=== PATIENT | female | born 1965 | race Two or more races ===

== ENCOUNTER → 2020-07-31 13:46 | Outpatient (BNVA) | payer OTHER, SELFPAY | PROVIDERS: PCP Internal Medicine Geriatric Medicine; Referring Provider Internal Medicine Geriatric Medicine; Visit Provider Surgery | DX: D05.11 Intraductal carcinoma in situ of right breast (principal); D05.12 Intraductal carcinoma in situ of left breast; Z79.810 Long term (current) use of selective estrogen receptor modulators (SERMs); Z92.3 Personal history of irradiation | CPT/HCPCS: 99212 ==

== ENCOUNTER 2020-10-24 13:09 | Outpatient (REF) | payer OTHER, SELFPAY ==
--- NOTE | 2020-10-24 13:17 | MM_ITS ---
EXAMINATION: MM DIAGNOSTIC DIGITAL MAMMOGRAPHY, BILATERAL CLINICAL INFORMATION: Bilateral breast DCIS with radiation therapy COMPARISON: Mammography: October 03, 2019 and studies dating back to May 01, 2014 TECHNIQUE: Digital mammography is performed in craniocaudal and mediolateral oblique views along with computer-aided detection (CAD). Spot magnification views with scar markers performed in craniocaudal and 90 degree mediolateral views bilaterally. FINDINGS: The breasts are heterogeneously dense, which may obscure small masses (ACR BI-RADS breast composition Category c). Bilateral regions of architectural distortion are present related to previous surgery with skin thickening from radiation therapy. Bilateral axillary lymph nodes seen containing fat without evidence of infiltration. Results are provided to the patient at time of visit by the technologist. MM/MM diagnostic mammo BI IMPRESSION: Status post bilateral lumpectomies with radiation therapy with associated change. ASSESSMENT: BI-RADS 2: Benign RECOMMENDATION: Diagnostic mammography at time of next annual exam, due in 12 months. This patient's information was entered into a reminder system with a target due date for their next mammogram.
== END 2020-10-24 13:10 | disposition home or self-care (01) ==
LOC: HO.MAMMO 13:09
PROVIDERS: PCP Internal Medicine Geriatric Medicine; Visit Provider Surgery
DX: D05.11 Intraductal carcinoma in situ of right breast (principal); D05.12 Intraductal carcinoma in situ of left breast; Z90.13 Acquired absence of bilateral breasts and nipples; Z92.3 Personal history of irradiation
CPT/HCPCS: 77066

== ENCOUNTER 2020-10-30 08:53 | Outpatient (REF) | payer OTHER, SELFPAY ==
--- NOTE | ~2020-10-30 | XR_ITS ---
EXAMINATION: BILATERAL HAND AND WRIST X-RAY CLINICAL INFORMATION: Pain COMPARISON: Previous right hand and wrist x-ray August 2017 TECHNIQUE: 4 views of each hand and wrist FINDINGS: Left: The bones are osteopenic. Bone alignment is normal. No fracture or dislocation is seen. There is mild proliferative arthritis with small osteophytes at the DIP joint of the second finger in the IP joint of the thumb. Carpal bones are unremarkable. Soft tissues are unremarkable. Right: The bones are osteopenic. No fracture or dislocation is seen. There is mild arthritis with small osteophytes at the IP joint of the thumb. Joint spaces are otherwise normal. Soft tissues are normal. XR/XR hand wrist RT IMPRESSION: Left: Osteopenia. Small osteophytes at the DIP joint of the second finger and IP joint of the thumb. Right: Osteopenia. Small osteophyte at the IP joint of the thumb.
--- NOTE | ~2020-10-30 | XR_ITS ---
EXAMINATION: BILATERAL HAND AND WRIST X-RAY CLINICAL INFORMATION: Pain COMPARISON: Previous right hand and wrist x-ray August 2017 TECHNIQUE: 4 views of each hand and wrist FINDINGS: Left: The bones are osteopenic. Bone alignment is normal. No fracture or dislocation is seen. There is mild proliferative arthritis with small osteophytes at the DIP joint of the second finger in the IP joint of the thumb. Carpal bones are unremarkable. Soft tissues are unremarkable. Right: The bones are osteopenic. No fracture or dislocation is seen. There is mild arthritis with small osteophytes at the IP joint of the thumb. Joint spaces are otherwise normal. Soft tissues are normal. XR/XR hand wrist LT IMPRESSION: Left: Osteopenia. Small osteophytes at the DIP joint of the second finger and IP joint of the thumb. Right: Osteopenia. Small osteophyte at the IP joint of the thumb.
[2020-10-30 11:07] LABS: Glucose Urine UA NEG (NEG); Leukocyte Esterase Urine NEG (NEG); Nitrite Urine NEG (NEG); PH 5.5 (5.0-8.0); Specific Gravity - Urine >= 1.030 (1.005-1.025); Urine Blood 1+ (NEG); Urine Ketones NEG (NEG); Urine Protein NEG (NEG-TRACE)
[2020-10-30 11:09] LABS: Appearance Urine HAZY; Color Urine YELLOW
[2020-10-30 11:21] LABS: Bacteria Urine 1+ /LPF; Mucus Urine 1+ /LPF; Squamous Epithelial Cell Urine 1+ /LPF; WBC Urine 0 /HPF (0-4)
[2020-10-30 11:29] LABS: C Reactive Protein 0.76 mg/dL (< or = 0.50)
[2020-10-30 11:44] LABS: Thyroid Stimulating Hormone 0.89 uIU/mL (0.32-4.0)
[2020-10-30 12:10] LABS: Erythrocyte Sedimentation Rate 65 MM/HR (0-20)
[2020-10-31 06:47] LABS: Thyroglobulin Antibodies <1 IU/mL (< or = 1); Thyroid Peroxidase Antibodies <1 IU/mL (<9)
[2020-10-31 11:57] LABS: Cyclic Citrullinated Peptide >250 UNITS
[2020-10-31 12:42] LABS: Anti DNA DS Antibody 1 IU/mL; Antibody to SS-A Antigen <1.0 NEG AI (<1.0 NEG); Antibody to SS-B Antigen <1.0 NEG AI (<1.0 NEG); SM/Ribonucleoprotein Ab <1.0 NEG AI (<1.0 NEG); Smith Protein <1.0 NEG AI (<1.0 NEG)
[2020-10-31 13:58] LABS: Complement C3 123 mg/dL (83-193)
== END 2020-10-30 08:54 | disposition home or self-care (01) ==
LOC: HO.LAB 08:53
PROVIDERS: PCP Internal Medicine Geriatric Medicine; Visit Provider Student in an Organized Health Care Education/Training Program
DX: R76.8 Other specified abnormal immunological findings in serum (principal); M25.50 Pain in unspecified joint
CPT/HCPCS: 36415; 73110; 73130; 81001; 84443; 85652; 86140; 86160; 86200; 86225; 86235; 86376; 86800; 99212

== ENCOUNTER 2020-11-08 13:33 | Outpatient (REF) | payer OTHER, SELFPAY ==
--- NOTE | ~2020-11-08 | MR_ITS ---
EXAMINATION: MR HAND WITHOUT AND WITH CONTRAST, RIGHT CLINICAL INFORMATION: Right hand pain COMPARISON: Right hand and wrist radiographs dated 10/30/2020 TECHNIQUE: Multisequence MR images of the right hand were obtained before and after the administration of 7.5 mL Gadavist IV contrast on a high-field strength scanner. FINDINGS: BONE: No acute fracture or dislocation. Minimal subchondral cystic change within the distal pole of the scaphoid adjacent to the triscaphe joint. Mild articular cartilage signal heterogeneity with subchondral cystic change at the 1st carpometacarpal joint. Mild articular cartilage thinning with tiny marginal osteophytes at the 1st interphalangeal joint. No additional abnormal marrow signal. No abnormal postcontrast enhancement. MUSCLES/TENDONS: The visualized flexor and extensor tendons are intact. LIGAMENTS: The collateral ligaments are intact. SOFT TISSUES: No abnormal soft tissue mass, fluid collection, or enhancement. MR/MR hand RT wo/w con IMPRESSION: 1. Minimal degenerative arthritis at the triscaphe, 1st carpometacarpal, and 1st interphalangeal joints. 2. No additional osseous abnormality. No abnormal postcontrast enhancement.
[2020-11-08 14:15] LABS: Blood Urea Nitrogen 20 mg/dL (9-16); Estimated Glomerular Filt Rate > 60
== END 2020-11-08 13:34 | disposition home or self-care (01) ==
LOC: HO.MRI 13:33
PROVIDERS: Visit Provider Student in an Organized Health Care Education/Training Program
DX: M79.89 Other specified soft tissue disorders (principal)
CPT/HCPCS: 36415; 73220; 82565; 84520; A9585

== ENCOUNTER → 2020-11-26 09:06 | Outpatient (BNVA) | payer OTHER, SELFPAY | PROVIDERS: PCP Internal Medicine Geriatric Medicine; Visit Provider Nurse Practitioner | DX: Z13.89 Encounter for screening for other disorder (principal) | CPT/HCPCS: Q3014 ==

== ENCOUNTER → 2020-12-04 10:30 | Outpatient (BNV) | payer OTHER, SELFPAY | PROVIDERS: PCP Internal Medicine Geriatric Medicine; Visit Provider Internal Medicine Medical Oncology | DX: D05.11 Intraductal carcinoma in situ of right breast (principal); D05.12 Intraductal carcinoma in situ of left breast; M81.0 Age-related osteoporosis without current pathological fracture; D61.818 Other pancytopenia | CPT/HCPCS: 99213; 99214 ==

== ENCOUNTER → 2020-12-05 10:37 | Outpatient (BNVA) | payer OTHER, SELFPAY | PROVIDERS: PCP Internal Medicine Geriatric Medicine; Visit Provider Student in an Organized Health Care Education/Training Program | DX: M06.9 Rheumatoid arthritis, unspecified (principal); R76.8 Other specified abnormal immunological findings in serum; M25.50 Pain in unspecified joint | CPT/HCPCS: 99212 ==

== ENCOUNTER → 2020-12-07 09:47 | Outpatient (BNVA) | payer OTHER, SELFPAY | PROVIDERS: PCP Internal Medicine Geriatric Medicine; Visit Provider Surgery | DX: D05.11 Intraductal carcinoma in situ of right breast (principal); D05.12 Intraductal carcinoma in situ of left breast; N63.20 Unspecified lump in the left breast, unspecified quadrant | CPT/HCPCS: 99212 ==

== ENCOUNTER 2020-12-13 12:55 | Outpatient (REF) | payer OTHER, SELFPAY ==
--- NOTE | ~2020-12-13 | US_ITS ---
EXAMINATION: US DIAGNOSTIC ULTRASOUND BREAST, LEFT CLINICAL INFORMATION: Status post bilateral DCIS, MR biopsy 08/29/2019, status post lumpectomy 10/03/2019. Patient notes fullness and tenderness/pain lateral inframammary fold. COMPARISON: Post lumpectomy mammography 10/24/2020. TECHNIQUE: Ultrasound of the left breast is targeted to the area of clinical concern. Grayscale imaging and color Doppler are performed without and with harmonics. Patient is able to point to the area of concern at time of imaging. FINDINGS: There is no focal suspicious finding. There is no cystic or solid mass, architectural abnormality, duct ectasia. There is no skin thickening or edema tracking in the soft tissue planes. The patient's symptoms overlie the anterior lateral thoracic cage level of inframammary fold and extending laterally beyond the breast. Results are discussed with the patient at time of visit. US/US breast LT limited IMPRESSION: Unremarkable targeted left breast/chest wall ultrasound. ASSESSMENT: BI-RADS 1: Negative RECOMMENDATION: 1. Patient should be managed based on the clinical impression. 2. Otherwise, routine annual screening mammography. This patient's information was entered into a reminder system with a target due date for their next mammogram.
== END 2020-12-13 12:56 | disposition home or self-care (01) ==
LOC: HO.MAMMO 12:55
PROVIDERS: Visit Provider Surgery
DX: N63.23 Unspecified lump in the left breast, lower outer quadrant (principal); Z86.000 Personal history of in-situ neoplasm of breast
CPT/HCPCS: 76642; Q3014

== ENCOUNTER → 2021-01-17 13:28 | Outpatient (BNVA) | payer OTHER, SELFPAY | PROVIDERS: Visit Provider Nurse Practitioner | DX: Z13.89 Encounter for screening for other disorder (principal) | CPT/HCPCS: Q3014 ==

== ENCOUNTER 2021-01-31 16:19 | Outpatient (REF) | payer OTHER, SELFPAY ==
[2021-01-31 16:46] LABS: MANUAL DIFF FLAG NO
[2021-01-31 16:52] LABS: Basophils Percent Auto 0.5 % (0-2); Eosinophils Absolute Auto 0.1 X10*3/uL (0.0-0.4); Eosinophils Percent Auto 2.7 % (0-4); Hematocrit 36.1 % (37-47); Hemoglobin 11.6 g/dl (12.0-16.0); Imm Gran Abs Auto 0.01 X10*3/uL (0.00-0.03); Imm Gran Pct Auto 0.2 % (0.0-0.4); Lymphocytes Absolute Auto 0.9 X10*3/uL (1.2-4.9); Lymphocytes Percent Auto 20.9 % (20-40); Mean Corpuscular HGB Conc 32.1 g/dl (31.0-35.0); Mean Corpuscular Hemoglobin 27.4 pg (27.0-33.0); Mean Corpuscular Volume 85.3 fL (80-98); Mean Platelet Volume 9.8 fL (9.4-12.3); Monocytes Absolute Auto 0.4 X10*3/uL (0.1-1.2); Monocytes Percent Auto 8.6 % (2-11); Neutrophils Absolute Auto 2.7 X10*3/uL (2.0-8.3); Neutrophils Percent Auto 67.1 % (45-73); Platelet Count 148 X10*3/uL (160-400); Red Blood Count 4.23 X10*6/uL (4.20-5.50); Red Cell Distribution Width 14.2 % (11.0-16.0); White Blood Count 4.1 X10*3/uL (4.8-10.8)
[2021-01-31 17:11] LABS: Alanine Aminotransferase 20 U/L (0-31); Albumin Level 4.3 g/dL (3.5-5.0); Alkaline Phosphatase 76 U/L (39-117); Anion Gap 13 (12-20); Aspartate Amino Transferase 19 U/L (5-31); Bilirubin Total 0.3 mg/dL (0.0-1.0); Blood Urea Nitrogen 21 mg/dL (9-16); C Reactive Protein 0.38 mg/dL (< or = 0.50); Calcium 9.7 mg/dL (8.4-10.2); Carbon Dioxide 29 mmol/L (22-29); Chloride 102 mmol/L (96-108); Estimated Glomerular Filt Rate 54; Glucose Random 103 mg/dL (60-115); Potassium 4.1 mmol/L (3.3-5.1); Sodium 140 mmol/L (135-145); Total Protein 7.6 g/dL (6.5-8.0)
[2021-01-31 17:48] LABS: Erythrocyte Sedimentation Rate 55 MM/HR (0-20)
[2021-01-31 18:04] LABS: Glucose Urine UA NEG (NEG); Leukocyte Esterase Urine NEG (NEG); Nitrite Urine NEG (NEG); PH 5.5 (5.0-8.0); Specific Gravity - Urine >= 1.030 (1.005-1.025); Urine Blood 1+ (NEG); Urine Ketones NEG (NEG); Urine Protein NEG (NEG-TRACE)
[2021-01-31 18:07] LABS: Appearance Urine CLEAR; Color Urine YELLOW
[2021-01-31 18:21] LABS: Bacteria Urine 1+ /LPF; Mucus Urine 2+ /LPF; RBC Urine 0-2 /HPF (0); Squamous Epithelial Cell Urine 2+ /LPF; WBC Urine 0-2 /HPF (0-4)
[2021-02-01 08:13] LABS: HBS Num1 30.39 mIU/mL (0-7.99); HBsAGNum1 0.21 S/CO (0.00-0.99); Hepatitis A Antibody IgM 0.35 Index (0-0.79); Hepatitis B Core Antibody Nonreactive (Nonreactive); Hepatitis B Surface Antigen Negative (Negative); ~HepC Num1 0.11 S/CO (0.00-0.79); ~Hepatitis A Antibody IgM Nonreactive (Nonreactive); ~Hepatitis B Surface Antibody REACTIVE (Nonreactive); ~Hepatitis C Antibody Nonreactive (Nonreactive)
[2021-02-03 23:06] LABS: TS Negative Control Passed; TS Panel A 1; TS Panel B 1; TS Positive Control Passed; TSpotTB Negative (SeeBelow)
== END 2021-01-31 16:20 | disposition home or self-care (01) ==
LOC: HO.LAB 16:19
PROVIDERS: PCP Internal Medicine Geriatric Medicine; Visit Provider Student in an Organized Health Care Education/Training Program
DX: M06.9 Rheumatoid arthritis, unspecified (principal)
CPT/HCPCS: 36415; 80053; 81001; 85025; 85652; 86140; 86481; 86704; 86706; 86709; 86803; 87340

== ENCOUNTER → 2021-03-28 15:42 | Outpatient (BNVA) | payer OTHER, SELFPAY | PROVIDERS: PCP Internal Medicine Geriatric Medicine; Visit Provider Surgery | DX: D05.12 Intraductal carcinoma in situ of left breast (principal); D05.11 Intraductal carcinoma in situ of right breast; R73.03 Prediabetes; M81.0 Age-related osteoporosis without current pathological fracture; N63.20 Unspecified lump in the left breast, unspecified quadrant; Z79.810 Long term (current) use of selective estrogen receptor modulators (SERMs); Z92.3 Personal history of irradiation | CPT/HCPCS: 99212 ==

== ENCOUNTER → 2021-04-19 13:02 | Outpatient (BNVA) | payer OTHER, SELFPAY | PROVIDERS: PCP Internal Medicine Geriatric Medicine; Visit Provider Nurse Practitioner | DX: Z13.89 Encounter for screening for other disorder (principal) | CPT/HCPCS: Q3014 ==

== ENCOUNTER 2021-04-25 11:21 | Outpatient (REF) | payer OTHER, SELFPAY ==
--- NOTE | ~2021-04-25 | XR_ITS ---
EXAMINATION: XR RIBS, LEFT CLINICAL INFORMATION: Pleurodynia. COMPARISON: Chest radiographs 07/12/2016, 04/26/2014 TECHNIQUE: Frontal view chest and 3 views left ribs are obtained for a total of 4 views. FINDINGS: There is no visible rib fracture or rib destructive process. There is no pneumothorax or pleural reaction or effusion. The lungs show no airspace consolidation or focal groundglass opacity. The costophrenic sulci are clear. The heart is within normal size. The vascularity is within normal. The hilar and mediastinal contours are unremarkable. XR/XR ribs LT min 3V w CXR1V IMPRESSION: 1. No visible left rib fracture or rib destructive process. 2. No pneumothorax, pleural reaction, or effusion.
[2021-04-25 13:29] LABS: Alanine Aminotransferase 19 U/L (0-31); Albumin Level 4.3 g/dL (3.5-5.0); Alkaline Phosphatase 70 U/L (39-117); Aspartate Amino Transferase 18 U/L (5-31); Bilirubin Direct 0.2 mg/dL (0.0-0.5); Bilirubin Total 0.4 mg/dL (0.0-1.0); Total Protein 7.5 g/dL (6.5-8.0)
[2021-04-26 13:20] LABS: Alpha Fetoprotein 2.8 ng/mL
== END 2021-04-25 11:22 | disposition home or self-care (01) ==
LOC: HO.XRAY 11:21
PROVIDERS: Absent Provider Internal Medicine Geriatric Medicine; PCP Internal Medicine Geriatric Medicine; Visit Provider Nurse Practitioner
DX: K76.0 Fatty (change of) liver, not elsewhere classified (principal); R07.81 Pleurodynia
CPT/HCPCS: 36415; 71101; 80076; 82105

== ENCOUNTER 2021-05-31 08:00 | Outpatient (REF) | payer OTHER, SELFPAY ==
--- NOTE | ~2021-05-31 | US_ITS ---
EXAMINATION: US ABDOMEN LIMITED CLINICAL INFORMATION: Fatty change of liver, not elsewhere classified. COMPARISON: Ultrasound abdomen 06/07/2020 and 06/16/2019. CT abdomen and pelvis 01/25/2020. TECHNIQUE: Real-time imaging of the right upper quadrant abdominal viscera. FINDINGS: PANCREAS: Normal. LIVER: The liver is normal in size. The liver contour is normal. There is diffuse increased liver parenchymal echogenicity and sound attenuation, consistent with hepatic steatosis. No focal hepatic lesion. There is no intrahepatic biliary duct dilatation seen. GALLBLADDER: Normal. The gallbladder is physiologically distended without evidence of stones, sludge, polyps, wall thickening or pericholecystic fluid. COMMON BILE DUCT: Normal in caliber measuring 0.6 cm in diameter. RIGHT KIDNEY: Normal. No hydronephrosis. No renal calculi or focal parenchymal lesions. The kidney measures 11.6 cm in maximum dimension. FREE FLUID: None. US/US abdomen limited IMPRESSION: Mildly increased hepatic echogenicity and sound attenuation suggesting hepatic steatosis.
== END 2021-05-31 08:01 | disposition home or self-care (01) ==
LOC: HO.US 08:00
PROVIDERS: Visit Provider Nurse Practitioner
DX: K76.0 Fatty (change of) liver, not elsewhere classified (principal)
CPT/HCPCS: 76705

== ENCOUNTER → 2021-06-14 07:52 | Outpatient (BNVA) | payer OTHER, SELFPAY | PROVIDERS: PCP Internal Medicine Geriatric Medicine; Visit Provider Nurse Practitioner Family | DX: M06.9 Rheumatoid arthritis, unspecified (principal); M25.50 Pain in unspecified joint; M25.561 Pain in right knee | CPT/HCPCS: 99212 ==

== ENCOUNTER 2021-06-15 10:34 | Outpatient (REF) | payer OTHER, SELFPAY ==
--- NOTE | ~2021-06-15 | XR_ITS ---
EXAMINATION: X-RAY RIGHT WRIST X-RAY LEFT WRIST CLINICAL INFORMATION: Pain. COMPARISON: MR of the right hand dated from 11/08/2020. Radiographs of the right and left wrist dated from 10/30/2020. TECHNIQUE: 4 views of each wrist were obtained. FINDINGS: Right wrist: No evidence of acute fractures or malalignment. The scapholunate interval and carpal rows are maintained. There is mild joint space narrowing at triscaphe space and first carpometacarpal joint. No chondrocalcinosis. No erosions. Normal appearance of the soft tissues. Left wrist: No evidence of acute fractures or malalignment. Carpal rows are scapholunate interval are preserved. Similar when compared to the right side, there is mild joint space narrowing at the first carpometacarpal joint, triscaphe space and first interphalangeal joints. No cortical stenosis or erosions. Normal appearance of the soft tissues. XR/XR wrist RT 2V IMPRESSION: No acute fractures or malalignment. Mild degenerative osteoarthritis, similar since a few days ago.
--- NOTE | ~2021-06-15 | XR_ITS ---
EXAMINATION: X-RAY RIGHT WRIST X-RAY LEFT WRIST CLINICAL INFORMATION: Pain. COMPARISON: MR of the right hand dated from 11/08/2020. Radiographs of the right and left wrist dated from 10/30/2020. TECHNIQUE: 4 views of each wrist were obtained. FINDINGS: Right wrist: No evidence of acute fractures or malalignment. The scapholunate interval and carpal rows are maintained. There is mild joint space narrowing at triscaphe space and first carpometacarpal joint. No chondrocalcinosis. No erosions. Normal appearance of the soft tissues. Left wrist: No evidence of acute fractures or malalignment. Carpal rows are scapholunate interval are preserved. Similar when compared to the right side, there is mild joint space narrowing at the first carpometacarpal joint, triscaphe space and first interphalangeal joints. No cortical stenosis or erosions. Normal appearance of the soft tissues. XR/XR wrist LT 2V IMPRESSION: No acute fractures or malalignment. Mild degenerative osteoarthritis, similar since a few days ago.
--- NOTE | ~2021-06-15 | XR_ITS ---
EXAMINATION: XR KNEE, RIGHT CLINICAL INFORMATION: Pain in the right knee. COMPARISON: Radiograph of the right knee dated from 08/07/2016. TECHNIQUE: Four views of the right knee. FINDINGS: No evidence of acute fractures or malalignment. There is mild joint space narrowing in the medial compartment of the knee, unchanged since 2016. There is redemonstration of an enthesophyte at the quadriceps insertion size on the patella. No erosions or chondrocalcinosis. No joint effusion. XR/XR knee RT 3V IMPRESSION: No acute fractures or malalignment. Mild degenerative osteoarthritis of the medial compartment of the right knee.
[2021-06-15 11:21] LABS: MANUAL DIFF FLAG NO
[2021-06-15 11:27] LABS: Basophils Percent Auto 0.7 % (0-2); Eosinophils Absolute Auto 0.1 X10*3/uL (0.0-0.4); Eosinophils Percent Auto 3.3 % (0-4); Hematocrit 36.7 % (37-47); Hemoglobin 11.6 g/dl (12.0-16.0); Imm Gran Abs Auto 0.01 X10*3/uL (0.00-0.03); Imm Gran Pct Auto 0.3 % (0.0-0.4); Lymphocytes Absolute Auto 0.7 X10*3/uL (1.2-4.9); Lymphocytes Percent Auto 24.1 % (20-40); Mean Corpuscular HGB Conc 31.6 g/dl (31.0-35.0); Mean Corpuscular Hemoglobin 27.6 pg (27.0-33.0); Mean Corpuscular Volume 87.2 fL (80-98); Mean Platelet Volume 11.8 fL (9.4-12.3); Monocytes Absolute Auto 0.3 X10*3/uL (0.1-1.2); Neutrophils Absolute Auto 1.8 X10*3/uL (2.0-8.3); Neutrophils Percent Auto 61.6 % (45-73); Platelet Count 143 X10*3/uL (160-400); Red Blood Count 4.21 X10*6/uL (4.20-5.50)
[2021-06-15 11:50] LABS: Alanine Aminotransferase 18 U/L (0-31); Albumin Level 4.2 g/dL (3.5-5.0); Alkaline Phosphatase 70 U/L (39-117); Anion Gap 14 (12-20); Aspartate Amino Transferase 18 U/L (5-31); Bilirubin Total 0.4 mg/dL (0.0-1.0); Blood Urea Nitrogen 26 mg/dL (9-16); C Reactive Protein 0.48 mg/dL (< or = 0.50); Calcium 9.7 mg/dL (8.4-10.2); Carbon Dioxide 27 mmol/L (22-29); Chloride 106 mmol/L (96-108); Estimated Glomerular Filt Rate > 60; Glucose Random 93 mg/dL (60-115); Potassium 3.7 mmol/L (3.3-5.1); Sodium 143 mmol/L (135-145); Total Protein 7.3 g/dL (6.5-8.0)
[2021-06-15 12:17] LABS: Erythrocyte Sedimentation Rate 48 MM/HR (0-20)
== END 2021-06-15 10:35 | disposition home or self-care (01) ==
LOC: HO.XRAY 10:34
PROVIDERS: PCP Internal Medicine Geriatric Medicine; Visit Provider Nurse Practitioner Family
DX: M06.9 Rheumatoid arthritis, unspecified (principal); M25.561 Pain in right knee; M25.50 Pain in unspecified joint
CPT/HCPCS: 36415; 73100; 73562; 80053; 85025; 85652; 86140

== ENCOUNTER → 2021-06-20 15:55 | Outpatient (BNVA) | payer OTHER, SELFPAY | PROVIDERS: PCP Internal Medicine Geriatric Medicine; Visit Provider Nurse Practitioner | DX: Z13.89 Encounter for screening for other disorder (principal) | CPT/HCPCS: Q3014 ==

== ENCOUNTER → 2021-07-02 15:42 | Outpatient (BNVA) | payer OTHER, SELFPAY | PROVIDERS: PCP Internal Medicine Geriatric Medicine; Referring Provider Internal Medicine Geriatric Medicine; Visit Provider Surgery | DX: D05.11 Intraductal carcinoma in situ of right breast (principal); D05.12 Intraductal carcinoma in situ of left breast; N64.4 Mastodynia; R20.0 Anesthesia of skin; M81.0 Age-related osteoporosis without current pathological fracture; E78.00 Pure hypercholesterolemia, unspecified; R73.03 Prediabetes; Z92.3 Personal history of irradiation; Z79.890 Hormone replacement therapy; Z79.899 Other long term (current) drug therapy | CPT/HCPCS: 99212 ==

== ENCOUNTER → 2021-09-02 11:20 | Outpatient (BNVA) | payer OTHER, SELFPAY | PROVIDERS: PCP Internal Medicine Geriatric Medicine; Visit Provider Nurse Practitioner Family | DX: M06.9 Rheumatoid arthritis, unspecified (principal); M25.50 Pain in unspecified joint; M25.561 Pain in right knee | CPT/HCPCS: 99212 ==

== ENCOUNTER 2021-09-07 10:26 | Outpatient (REF) | payer OTHER, SELFPAY ==
[2021-09-07 10:54] LABS: MANUAL DIFF FLAG NO
[2021-09-07 11:16] LABS: Basophils Percent Auto 0.6 % (0-2); Eosinophils Absolute Auto 0.1 X10*3/uL (0.0-0.4); Eosinophils Percent Auto 3.3 % (0-4); Hematocrit 36.7 % (37.0-47.0); Hemoglobin 11.4 g/dl (12.0-16.0); Imm Gran Abs Auto 0.01 X10*3/uL (0.00-0.03); Imm Gran Pct Auto 0.3 % (0.0-0.4); Lymphocytes Absolute Auto 0.7 X10*3/uL (1.2-4.9); Lymphocytes Percent Auto 20.4 % (20-40); Mean Corpuscular HGB Conc 31.1 g/dl (31.0-35.0); Mean Corpuscular Hemoglobin 26.7 pg (27.0-33.0); Mean Corpuscular Volume 85.9 fL (80.0-98.0); Mean Platelet Volume 11.1 fL (9.4-12.3); Monocytes Absolute Auto 0.3 X10*3/uL (0.1-1.2); Monocytes Percent Auto 9.5 % (2-11); Neutrophils Absolute Auto 2.2 x10*3/uL (2.0-8.3); Neutrophils Percent Auto 65.9 % (45-73); Platelet Count 163 X10*3/uL (160-400); Red Blood Count 4.27 X10*6/uL (4.20-5.50); Red Cell Distribution Width 13.6 % (11.0-16.0); White Blood Count 3.4 X10*3/uL (4.8-10.8)
[2021-09-07 11:38] LABS: Alanine Aminotransferase 16 U/L (0-31); Alkaline Phosphatase 74 U/L (39-117); Anion Gap 12 (12-20); Aspartate Amino Transferase 17 U/L (5-31); Bilirubin Total 0.4 mg/dL (0.0-1.0); Blood Urea Nitrogen 21 mg/dL (9-16); C Reactive Protein 1.19 mg/dL (< or = 0.50); Calcium 9.6 mg/dL (8.4-10.2); Carbon Dioxide 28 mmol/L (22-29); Chloride 105 mmol/L (96-108); Estimated Glomerular Filt Rate > 60; Glucose Random 101 mg/dL (60-115); Potassium 4.1 mmol/L (3.3-5.1); Sodium 141 mmol/L (135-145); Total Protein 7.3 g/dL (6.5-8.0)
[2021-09-07 12:02] LABS: Erythrocyte Sedimentation Rate 59 MM/HR (0-20)
== END 2021-09-07 10:27 | disposition home or self-care (01) ==
LOC: HO.LAB 10:26
PROVIDERS: PCP Internal Medicine Geriatric Medicine; Visit Provider Nurse Practitioner Family
DX: M06.9 Rheumatoid arthritis, unspecified (principal)
CPT/HCPCS: 36415; 80053; 85025; 85652; 86140

== ENCOUNTER 2021-10-18 15:43 | Outpatient (REF) | payer OTHER, SELFPAY ==
[2021-10-18 17:46] LABS: Alanine Aminotransferase 26 U/L (0-31); Alkaline Phosphatase 74 U/L (39-117); Aspartate Amino Transferase 24 U/L (5-31); Bilirubin Direct 0.2 mg/dL (0.0-0.5); Bilirubin Total 0.4 mg/dL (0.0-1.0); Total Protein 7.7 g/dL (6.5-8.0)
[2021-10-21 13:02] LABS: Alpha Fetoprotein 3.6 ng/mL
== END 2021-10-18 15:44 | disposition home or self-care (01) ==
LOC: HO.LAB 15:43
PROVIDERS: PCP Internal Medicine Geriatric Medicine; Referring Provider Internal Medicine Geriatric Medicine; Visit Provider Nurse Practitioner
DX: R13.10 Dysphagia, unspecified (principal); K76.0 Fatty (change of) liver, not elsewhere classified; K21.9 Gastro-esophageal reflux disease without esophagitis
CPT/HCPCS: 36415; 80076; 82105; 99212

== ENCOUNTER 2021-10-24 12:26 | Outpatient (REF) | payer OTHER, SELFPAY ==
--- NOTE | ~2021-10-24 | MM_ITS ---
EXAMINATION: MM DIAGNOSTIC DIGITAL MAMMOGRAPHY, BILATERAL CLINICAL INFORMATION: Status post bilateral lumpectomy 10/03/2019 (bilateral DCIS and negative right axillary sentinel nodes). Due for yearly. COMPARISON: Mammography: 03/23/2021, 10/03/2019, 06/01/2019 TECHNIQUE: Digital mammography is performed in craniocaudal and mediolateral oblique views along with computer-aided detection (CAD). Additional bilateral magnification CC and bilateral magnification ML views are obtained. FINDINGS: The breasts are heterogeneously dense, which may obscure small masses (ACR BI-RADS breast composition Category c). Breast tissue composition borders on average fibroglandular. There are bilateral post therapy changes with stable scarring. There is no interval mass or architectural abnormality or abnormal calcifications. No significant changes. MM/MM diagnostic mammo BI IMPRESSION: Bilateral post therapy changes. There are no significant changes from prior study. ASSESSMENT: BI-RADS 2: Benign RECOMMENDATION: Annual bilateral mammography. This patient's information was entered into a reminder system with a target due date for their next mammogram.
== END 2021-10-24 12:27 | disposition home or self-care (01) ==
LOC: HO.MAMMO 12:26
PROVIDERS: Visit Provider Surgery
DX: Z86.000 Personal history of in-situ neoplasm of breast (principal)
CPT/HCPCS: 77066

== ENCOUNTER → 2021-12-04 14:27 | Outpatient (BNVA) | payer OTHER, SELFPAY | PROVIDERS: PCP Internal Medicine Geriatric Medicine; Visit Provider Nurse Practitioner Family | DX: M06.9 Rheumatoid arthritis, unspecified (principal); M25.561 Pain in right knee; M54.50 Low back pain, unspecified; Z79.899 Other long term (current) drug therapy | CPT/HCPCS: 99212 ==

== ENCOUNTER 2021-12-05 15:57 | Outpatient (REF) | payer OTHER, SELFPAY ==
[2021-12-05 17:22] LABS: C Reactive Protein 0.67 mg/dL (< or = 0.50)
[2021-12-05 17:38] LABS: Erythrocyte Sedimentation Rate 57 MM/HR (0-20)
== END 2021-12-05 15:58 | disposition home or self-care (01) ==
LOC: HO.LAB 15:57
PROVIDERS: Visit Provider Nurse Practitioner Family
DX: M06.9 Rheumatoid arthritis, unspecified (principal)
CPT/HCPCS: 36415; 85652; 86140

== ENCOUNTER 2021-12-11 08:40 | Outpatient (REF) | payer OTHER, SELFPAY ==
--- NOTE | ~2021-12-11 | US_ITS ---
EXAMINATION: US ABDOMEN LIMITED CLINICAL INFORMATION: Fatty liver. COMPARISON: Ultrasound abdomen limited 05/31/2021 and 06/07/2020. CT abdomen and pelvis 01/25/2020 TECHNIQUE: Real-time imaging of the right upper quadrant abdominal viscera. FINDINGS: PANCREAS: Not well visualized. LIVER: Liver echotexture is slightly increased. The liver is upper normal in size. The liver contour is normal. No focal hepatic lesion. There is no intrahepatic biliary duct dilatation seen. GALLBLADDER: Normal. The gallbladder is physiologically distended without evidence of stones, sludge, polyps, wall thickening or pericholecystic fluid. COMMON BILE DUCT: Normal in caliber measuring 0.4 cm in diameter. RIGHT KIDNEY: There is a small echogenic 2 mm echogenic density in the upper to midpole questionable for a small stone. No hydronephrosis or focal parenchymal lesions. The kidney measures 11.4 cm in maximum dimension. FREE FLUID: None. US/US abdomen limited IMPRESSION: Slightly echogenic liver probably representing fatty alteration. Question small right renal stone. Pancreas not well visualized.
== END 2021-12-11 08:41 | disposition home or self-care (01) ==
LOC: HO.US 08:40
PROVIDERS: Visit Provider Nurse Practitioner
DX: K76.0 Fatty (change of) liver, not elsewhere classified (principal)
CPT/HCPCS: 76705

== ENCOUNTER 2021-12-16 08:44 | Outpatient (REF) | payer OTHER, SELFPAY | END 2021-12-16 08:45 | disposition home or self-care (01) | LOC: HO.HOSX 08:44 | PROVIDERS: Visit Provider Orthopaedic Surgery | DX: Z13.89 Encounter for screening for other disorder (principal) ==

== ENCOUNTER 2021-12-23 09:59 | Outpatient (REF) | payer OTHER, SELFPAY ==
--- NOTE | ~2021-12-23 | XR_ITS ---
EXAMINATION: XR KNEE, BILATERAL XR KNEE, RIGHT CLINICAL INFORMATION: Pain COMPARISON: 06/15/2021 TECHNIQUE: AP standing view of both knees. Lateral and sunrise views of the right knee. FINDINGS: Right knee: No acute fracture or subluxation. Mild medial compartment joint space narrowing with small marginal osteophytes. This is similar to prior. Small osteophytes of the patellofemoral compartment. Enthesophyte formation of the patella. No joint effusion. Left knee: On this single view the medial and lateral compartments are maintained. No osseous abnormality. XR/XR knee standing BI IMPRESSION: Similar appearance to prior. Mild degenerative change of the medial and patellofemoral compartments.
--- NOTE | ~2021-12-23 | XR_ITS ---
EXAMINATION: XR KNEE, BILATERAL XR KNEE, RIGHT CLINICAL INFORMATION: Pain COMPARISON: 06/15/2021 TECHNIQUE: AP standing view of both knees. Lateral and sunrise views of the right knee. FINDINGS: Right knee: No acute fracture or subluxation. Mild medial compartment joint space narrowing with small marginal osteophytes. This is similar to prior. Small osteophytes of the patellofemoral compartment. Enthesophyte formation of the patella. No joint effusion. Left knee: On this single view the medial and lateral compartments are maintained. No osseous abnormality. XR/XR knee RT 2V IMPRESSION: Similar appearance to prior. Mild degenerative change of the medial and patellofemoral compartments.
== END 2021-12-23 10:00 | disposition home or self-care (01) ==
LOC: HO.HOSX 09:59
PROVIDERS: PCP Internal Medicine Geriatric Medicine; Visit Provider Orthopaedic Surgery
DX: M23.90 Unspecified internal derangement of unspecified knee (principal)
CPT/HCPCS: 73560; 73565; 99202

== ENCOUNTER 2022-01-15 19:31 | Outpatient (REF) | payer OTHER, SELFPAY ==
--- NOTE | ~2022-01-15 | MR_ITS ---
EXAMINATION: MR KNEE WITHOUT CONTRAST, RIGHT CLINICAL INFORMATION: Anterior/inferior patellar pain. Right knee pain. Internal derangement. COMPARISON: Multiple priors, most recent right knee radiographs dated 12/23/2021. TECHNIQUE: MRI of the knee without contrast was performed using routine sequences on a high-field scanner. FINDINGS: MENISCI: Medial Meniscus: Medial extrusion of the meniscal body with irregular oblique inner margin tearing extending to the tibial articular surface. Abnormal signal within the posterior horn. Lateral Meniscus: Intact. LIGAMENTS: Cruciate: Intact. Collateral: Intact. EXTENSOR MECHANISM: Superior patellar enthesophytes. Intact quadriceps and patellar tendons. ARTICULAR CARTILAGE/BONE: Patellofemoral Compartment: Superior patellar articular cartilage thinning. Tiny marginal osteophytes. Medial Compartment: Full-thickness articular cartilage loss at the weightbearing medial femoral condyle and medial tibial plateau with mild underlying subchondral cystic change. Posterior nonweightbearing articular cartilage signal heterogeneity at the medial femoral condyle. Small marginal osteophytes. Lateral Compartment: Normal. JOINT FLUID AND BURSAE: Trace joint effusion. MR/MR knee RT wo con IMPRESSION: 1. Medial extrusion of the medial meniscal body with irregular oblique inner margin tearing. Degenerative intrasubstance signal within the posterior horn. 2. [id number] medial as well as mild patellofemoral compartment osteoarthritis. Trace joint effusion.
== END 2022-01-15 19:32 | disposition home or self-care (01) ==
LOC: HO.MRI 19:31
PROVIDERS: Visit Provider Orthopaedic Surgery
DX: M23.90 Unspecified internal derangement of unspecified knee (principal)
CPT/HCPCS: 73721

== ENCOUNTER → 2022-01-21 09:22 | Outpatient (BNVA) | payer OTHER, SELFPAY | PROVIDERS: PCP Internal Medicine Geriatric Medicine; Referring Provider Internal Medicine Geriatric Medicine; Visit Provider Surgery | DX: D05.11 Intraductal carcinoma in situ of right breast (principal); D05.12 Intraductal carcinoma in situ of left breast | CPT/HCPCS: 99212 ==

== ENCOUNTER → 2022-03-03 13:54 | Outpatient (BNVA) | payer OTHER, SELFPAY | PROVIDERS: PCP Internal Medicine Geriatric Medicine; Visit Provider Orthopaedic Surgery | DX: S83.206A Unspecified tear of unspecified meniscus, current injury, right knee, initial encounter (principal); M23.91 Unspecified internal derangement of right knee; M17.11 Unilateral primary osteoarthritis, right knee | CPT/HCPCS: 99212 ==

== ENCOUNTER 2022-04-16 08:00 | Day surgery (SDC) | payer OTHER, SELFPAY ==
[2022-04-10 10:54] VITALS: BMI 30.8
[2022-04-16 08:08] VITALS: BMI 30.7
--- NOTE | 2022-04-16 08:22 | P.CONAN_ITS ---
[facility] Active Problems Active Problems: All Active Problems (Updated 03/03/22 @ 14:24 by Delvin Galvan) Right knee meniscal tear (Acute) Osteoarthritis of right knee (Acute) Locking knee (Acute) Pancytopenia (Acute) H. 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 Esophagitis with gastritis Fatty liver History of ITP Hypercholesteremia IBS (irritable bowel syndrome) Osteoporosis Prediabetes Family History Family History Mother HTN (hypertension) Father Diabetes Daughter Fibromyoma Surgical History Surgical History H/O tubal ligation History of breast surgery (~11/11/19) History of esophagogastroduodenoscopy (EGD) History of lumpectomy of both breasts (~10/03/19) History of Problems with Anesthesia: No Social History Social History Household Members: None Housing: Apartment Are you a primary critical care nurse specialist to a significant other at home: No Do you presently have visiting nurse or other home services: Yes ([facility]) Alcohol intake: never Patient Tobacco Use Status: Former Tobacco user Use of substances other than those prescribed or required for medical reasons: No Have you been hit, kicked, punched, or otherwise hurt by someone within the past year? If so, by whom?: No Are you DNR?: No Advance Directives: No Advance Directives Information Provided: Yes Recently lost weight without trying: No Eating poorly because of decreased appetite: No Nutrition Risks: No Nutritional Risk Patient : No service: No Current occupational status: unemployed Meds Allergies Allergy/AdvReac Type Severity Reaction Status Date / Time No Known Allergies Allergy Verified 03/03/22 14:15 Active Medications: Current Medications Lactated Ringer's (Lr) 1,000 mls @ 50 mls/hr IVCONT .Q20H SHOAIB Ondansetron HCl (Ondansetron Hcl 4 Mg/2 Ml Vial) 4 mg IVPUSH ONCE PRN PRN Reason: Nausea and Vomiting Home Medications Medication Instructions Recorded Confirmed Last Taken Type clonidine HCl 0.2 mg tablet 0.2 mg PO DAILY 07/31/20 04/10/22 Unknown History fluticasone propionate 50 2 spray intranasal DAILY PRN 07/31/20 04/10/22 Unknown History mcg/actuation nasal Allergy Symptoms spray,suspension hydrocortisone 1 % topical cream 1 applic topical NEEDED 07/31/20 04/10/22 Unknown History ibuprofen 600 mg tablet 600 mg PO TID 07/31/20 04/10/22 Unknown History tramadol 50 mg tablet 50 mg PO Q8H PRN Pain 07/31/20 04/10/22 Unknown History quetiapine 25 mg tablet (Seroquel) 25 mg PO DAILY 12/05/20 04/10/22 Unknown History lorazepam 0.5 mg tablet 1 tab PO DAILY PRN Anxiety 05/03/21 04/10/22 Unknown History Exam Exam Date and Time: April 16, 2022 0822 Height,Weight and Vital Signs: Height 5 ft Weight 71.214 kg Airway Mallampati Class: III TM Dist: >3cm Neck ROM: Full Partial: Upper and Lower Heart: rrr Lungs: clear Assessment and Plan Final Anesthetic Review History of Problems with Anesthesia: No ASA Class: II Final Preanesthetic Review: No Changes in Pt Med Stat, Meds/Allgs Chart Reviewed, Consent Obtained/Reviewed and Anes Risks/Benef Reviewed Patient Risk: Intermediate Procedure Risk: Low Anesthetic Plan Anesthetic Plan: MAC: Disposition: Standard PACU
[2022-04-16] MEDS: Lactated Ringers 1,000 ML 50 ML IVCONT (08:35)
--- NOTE | 2022-04-16 09:07 | MHC.SHP ---
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 Esophagitis with gastritis Fatty liver History of ITP Hypercholesteremia IBS (irritable bowel syndrome) Osteoporosis Prediabetes) History of Previous Operations: Relevant previous surgery/procedure and date(s) (H/O tubal ligation History of breast surgery (~11/11/19) History of esophagogastroduodenoscopy (EGD) History of lumpectomy of both breasts (~10/03/19)) Allergies: Allergies Allergy/AdvReac Type Severity Reaction Status Date / Time No Known Allergies Allergy Verified 03/03/22 14:15 Review of Systems Sugical H&P ROS: Negative: Constitution, Cardiovascular, Respiratory, Neurological, Psychiatric, Hem-Onc, Allergic/Immunologic, Gastrointestinal, Genitourinary, Musculoskeletal, Integumentary, Endocrine and Eyes/Ears/Nose/Throat Exam Surgical H&P Exam: Normal: HEENT, Normal: Heart, Normal: Lungs, Normal: Extremities, Normal: Abdomen, Normal: Skin and Normal: Neurological Plan Diagnosis/Plan: Unchanged I have reviewed the history and physical and performed a pertinent physical examination on my patient. No changes have occurred unless specified.
--- NOTE | 2022-04-16 09:09 | W.PM.OPN ---
Operative Note Operative Note Date of Service: 04/16/22 Narrative: Procedure Description: EGD Indication: GERD, dysphagia Anesthesia: MAC FLEXIBLE TRANSORAL UPPER GASTROINTESTINAL ENDOSCOPY UPPER ENDOSCOPY Consent: Indications for the procedure and potential complications of bleeding, perforation, reaction to medications and missed diagnosis were discussed with the patient and informed consent was obtained. Instrument: Olympus GIF H 190 J mid size upper endoscope Monitoring: Vital signs and clinical assessment, continuous EKG monitoring, Pulse oximetry, Carbon Dioxide monitoring and blood pressure monitoring were done throughout the procedure. Procedure: The patient was placed in the left lateral decubitis position and pre-procedure medications were administered and a bite block was placed. The endoscope was inserted into the mouth and advanced under direct vision to the third part of duodenum. A careful inspection was made as the upper endoscope was withdrawn including a retroflexed examination of the proximal stomach; Findings and interventions are described below. Findings: Larynx:normal Esophagus: GE junction at 32 cm, diaphragm hiatus at 34 cm, mild esophagitis noted, bx taken from gEJ and distal/proximal esophagus. Ballon dilation done to 20 mm at lower esophagus and upper esophagus with small tear noted at GEJ junction. Stomach: Patchy streaky gastric erythema. Biopsies were obtained. Grade 2 flap valve on retroflexed examination of the cardia. Duodenum: Normal bulb and descending duodenum, bx taken Intervention: Biopsies as noted above, balloon dilation Impression/Findings: esophgeal stricture esophagitis gastritis small hiatal hernia PLAN: PO diet as tolerated today magic mouthwash for 1 week consider changing PPI, reflux precautions
[2022-04-16 09:48] VITALS: BP 102/56; PULSE 79; RESP 16; TEMP 36.1; O2SAT 95
[2022-04-16 10:03] VITALS: BP 114/72; PULSE 80; RESP 16; O2SAT 96
== END 2022-04-16 10:48 | disposition home or self-care (01) ==
PROVIDERS: Visit Provider Internal Medicine Gastroenterology
PROC: 0DJ08ZZ Inspection of Upper Intestinal Tract, Via Natural or Artificial Opening Endoscopic (ICD-10-PCS; CPT 43235; principal; 2022-04-16 09:20)
DX: R13.10 Dysphagia, unspecified (principal); K21.00 Gastro-esophageal reflux disease with esophagitis, without bleeding; K22.2 Esophageal obstruction; K29.50 Unspecified chronic gastritis without bleeding; K44.9 Diaphragmatic hernia without obstruction or gangrene; K76.0 Fatty (change of) liver, not elsewhere classified; M19.042 Primary osteoarthritis, left hand; M19.041 Primary osteoarthritis, right hand; M17.0 Bilateral primary osteoarthritis of knee; G89.29 Other chronic pain; M54.50 Low back pain, unspecified; M81.0 Age-related osteoporosis without current pathological fracture; D05.12 Intraductal carcinoma in situ of left breast; D05.11 Intraductal carcinoma in situ of right breast; Z79.811 Long term (current) use of aromatase inhibitors; R73.03 Prediabetes; Z79.899 Other long term (current) drug therapy
CPT/HCPCS: 43249; 43239; 88305; 88342; C1726

== ENCOUNTER → 2022-05-01 09:59 | Outpatient (BNVA) | payer OTHER, SELFPAY | PROVIDERS: PCP Internal Medicine Geriatric Medicine; Visit Provider Nurse Practitioner | DX: K21.9 Gastro-esophageal reflux disease without esophagitis (principal) | CPT/HCPCS: 99212 ==

== ENCOUNTER 2022-06-27 07:57 | Outpatient (REF) | payer OTHER, SELFPAY ==
--- NOTE | ~2022-06-27 | FL_ITS ---
EXAMINATION: FL BARIUM SWALLOW CLINICAL INFORMATION: Dysphagia COMPARISON: None TECHNIQUE: Barium swallow examination is performed using fluoroscopic evaluation in addition to multiple fluoroscopic spot views. The patient is imaged both upright and prone and using both thick and thin sulfate along with effervescent granules. FLUOROSCOPY TIME: 2.6 minutes DAP: 21.116 Gy-cm2 Images: 76 FINDINGS: Following oral administration of thick barium and barium-coated turkey, there is normal propagation of bolus from the oral cavity through the pharynx, esophagus into stomach without any evidence of obstruction, narrowing or stricture. On placing patient prone lying and oral administration of thin barium, there is good distention of the esophagus without intrinsic or extrinsic compression, mass. No laryngeal penetration or aspiration. No retention of barium in the valleculae or piriform sinuses . The GE junction is inconsistent for opening. No mucosal abnormality seen. FL/FL barium swallow IMPRESSION: Unremarkable barium swallow except for inconsistent opening of GE junction.
== END 2022-06-27 07:58 | disposition home or self-care (01) ==
LOC: HO.XRAY 07:57
PROVIDERS: Visit Provider Nurse Practitioner
DX: R13.10 Dysphagia, unspecified (principal)
CPT/HCPCS: 74220

== ENCOUNTER 2022-08-11 | Outpatient (REF) | payer OTHER, SELFPAY | END 2022-08-11 00:01 | disposition home or self-care (01) | LOC: CF | PROVIDERS: Visit Provider Internal Medicine Gastroenterology | DX: R68.81 Early satiety (principal); R13.10 Dysphagia, unspecified | CPT/HCPCS: 99212 ==

== ENCOUNTER → 2022-08-21 07:55 | Outpatient (REF) | payer OTHER, SELFPAY ==
--- NOTE | ~2022-08-21 | NM_ITS ---
EXAMINATION: VT RADIONUCLIDE SOLID FOOD GASTRIC EMPTYING 4-HOUR STUDY CLINICAL INFORMATION: Early satiety. COMPARISON: None. TECHNIQUE: A meal consisting of 8 ounces of Ensure-plus Brand tagged with 940 microcuries Tc-99m Sulfur Colloid, was administered orally to the patient. This fatty supplement was used because the patient could not tolerate eggs, and has been shown to closely mimic gastric emptying of labeled eggs. Images were obtained using a dual head gamma camera in the anterior and posterior projections over of the stomach immediately post ingestion and at hourly intervals up to 4 hours post ingestion. The anterior and posterior counts at each time interval were averaged using the geometric mean and expressed as percentage of the immediate post ingestion counts. FINDINGS: There is good visualization of activity in the stomach immediately post ingestion. As the study progresses, there is delayed clearance of activity from the stomach and slightly delayed visualization of progressively increasing small bowel activity. By the end of the study, there is mild abnormal retention noted in the stomach. Retention in the stomach at each time interval was: 1 hour 72% (normal 37%-90%) 2 hours 45% (normal 30%-60%) 3 hours 15% 4 hours 13% (normal 0%-10%) VT/VT gastric emptying study IMPRESSION: Abnormal mildly delayed modified 4-hour gastric emptying study. Ensure-plus Brand supplement was used instead of radio-labeled eggs because of the patient's intolerance to eggs. This supplement has been shown to closely mimic gastric emptying of labeled eggs. (For solid meal, rapid gastric emptying is less than 30% at 60 minutes. Delayed gastric emptying criteria is more than 60% remaining at 120 minutes or more than 10% at 240 minutes. The 4-hour value is the best discriminator of a normal or abnormal result).
== END ==
LOC: HO.NUCMED 07:55
PROVIDERS: Visit Provider Internal Medicine Gastroenterology
DX: R68.81 Early satiety (principal)
CPT/HCPCS: 78264; A9541

== ENCOUNTER → 2022-08-28 11:06 | Outpatient (BNVA) | payer OTHER, SELFPAY | PROVIDERS: PCP Internal Medicine Geriatric Medicine; Visit Provider Surgery | DX: D05.11 Intraductal carcinoma in situ of right breast (principal); D05.12 Intraductal carcinoma in situ of left breast | CPT/HCPCS: 99212 ==

== ENCOUNTER 2022-10-28 12:43 | Outpatient (REF) | payer OTHER, SELFPAY ==
--- NOTE | ~2022-10-28 | MM_ITS ---
EXAMINATION: MM DIAGNOSTIC DIGITAL BREAST TOMOSYNTHESIS, BILATERAL CLINICAL INFORMATION: Bilateral lumpectomies for DCIS. COMPARISON: Mammography: 10/24/2021 and studies dating back to 08/07/2016. TECHNIQUE: Digital breast tomosynthesis is performed in both the craniocaudal and mediolateral oblique views along with computer-aided detection (CAD). Synthesized 2D images are generated from the tomosynthesis. Additional spot magnification views of both breasts performed in craniocaudal and 90-degree mediolateral views. FINDINGS: The breasts are heterogeneously dense, which may obscure small masses (ACR BI-RADS breast composition Category c). There is a stable appearance of both breasts with postsurgical change. No new abnormal dominant mass or suspicious grouping of microcalcifications is identified. Results are provided to the patient at time of visit by the technologist. MM/MM tomosynthesis diagnostic BI IMPRESSION: There are no significant changes from prior study. ASSESSMENT: BI-RADS 2: Benign. RECOMMENDATION: Routine annual mammography screening. This patient's information was entered into a reminder system with a target due date for their next mammogram.
== END 2022-10-28 12:44 | disposition home or self-care (01) ==
LOC: HO.MAMMO 12:43
PROVIDERS: PCP Internal Medicine Geriatric Medicine; Visit Provider Surgery
DX: D05.11 Intraductal carcinoma in situ of right breast (principal); D05.12 Intraductal carcinoma in situ of left breast
CPT/HCPCS: 77062; 77066

== ENCOUNTER → 2022-11-03 09:43 | Outpatient (BNVA) | payer OTHER, SELFPAY | PROVIDERS: PCP Internal Medicine Geriatric Medicine; Referring Provider Internal Medicine Geriatric Medicine; Visit Provider Internal Medicine Gastroenterology | DX: K31.84 Gastroparesis (principal); R10.13 Epigastric pain; K59.00 Constipation, unspecified; K76.0 Fatty (change of) liver, not elsewhere classified | CPT/HCPCS: 99212 ==

== ENCOUNTER 2022-11-08 10:13 | Outpatient (REF) | payer OTHER, SELFPAY ==
[2022-11-08 10:26] LABS: MANUAL DIFF FLAG NO
[2022-11-08 11:01] LABS: Basophils Percent Auto 0.8 % (0-2); Eosinophils Absolute Auto 0.1 X10*3/uL (0.0-0.4); Eosinophils Percent Auto 2.8 % (0-4); Hematocrit 38.1 % (37.0-47.0); Hemoglobin 12.2 g/dl (12.0-16.0); Imm Gran Abs Auto 0.01 X10*3/uL (0.00-0.03); Imm Gran Pct Auto 0.3 % (0.0-0.4); Lymphocytes Absolute Auto 0.9 X10*3/uL (1.2-4.9); Lymphocytes Percent Auto 22.4 % (20-40); Mean Corpuscular Hemoglobin 27.3 pg (27.0-33.0); Mean Corpuscular Volume 85.2 fL (80.0-98.0); Mean Platelet Volume 11.4 fL (9.4-12.3); Monocytes Absolute Auto 0.3 X10*3/uL (0.1-1.2); Monocytes Percent Auto 8.7 % (2-11); Neutrophils Absolute Auto 2.6 x10*3/uL (2.0-8.3); Platelet Count 178 X10*3/uL (160-400); Red Blood Count 4.47 X10*6/uL (4.20-5.50); Red Cell Distribution Width 14.4 % (11.0-16.0); White Blood Count 3.9 X10*3/uL (4.8-10.8)
[2022-11-08 11:26] LABS: Estimated Average Glucose 131 mg/dL; Hemoglobin A1c % 6.2 %
[2022-11-08 11:48] LABS: Alanine Aminotransferase 27 U/L (0-31); Albumin Level 4.2 g/dL (3.5-5.0); Alkaline Phosphatase 79 U/L (39-117); Anion Gap 14 (12-20); Aspartate Amino Transferase 24 U/L (5-31); Bilirubin Total 0.5 mg/dL (0.0-1.0); Blood Urea Nitrogen 23 mg/dL (9-16); Calcium 9.5 mg/dL (8.4-10.2); Carbon Dioxide 27 mmol/L (22-29); Chloride 106 mmol/L (96-108); Cholesterol 225 mg/dL; Estimated Glomerular Filt Rate > 60; Glucose Random 107 mg/dL (60-115); HDL Cholesterol 66 mg/dL; LDL Cholesterol Calculated 131 mg/dl; Potassium 4.1 mmol/L (3.3-5.1); Sodium 143 mmol/L (135-145); Total Protein 7.5 g/dL (6.5-8.0); Triglycerides 142 mg/dL
== END 2022-11-08 10:14 | disposition home or self-care (01) ==
LOC: HO.LAB 10:13
PROVIDERS: PCP Internal Medicine Geriatric Medicine; Visit Provider Internal Medicine Geriatric Medicine
DX: Z00.00 Encounter for general adult medical examination without abnormal findings (principal); Z13.1 Encounter for screening for diabetes mellitus; Z13.220 Encounter for screening for lipoid disorders
CPT/HCPCS: 36415; 80053; 80061; 83036; 85025

== ENCOUNTER 2022-11-28 16:07 | Outpatient (REF) | payer OTHER, SELFPAY ==
--- NOTE | ~2022-11-28 | XR_ITS ---
EXAMINATION: XR CHEST CLINICAL INFORMATION: Chronic cough COMPARISON: Chest radiographs 04/25/2021, 07/12/2016. TECHNIQUE: 2 views of the chest were obtained. FINDINGS: There is mild coarsening bronchiolar markings without airspace consolidation or groundglass opacity. No effusion. The heart is normal in size. The vascularity is normal. The hilar and mediastinal contours and bony structures are stable. XR/XR chest 2V IMPRESSION: Mild coarsening bronchiolar markings. No airspace consolidation or groundglass opacity.
== END 2022-11-28 16:08 | disposition home or self-care (01) ==
LOC: HO.XRAY 16:07
PROVIDERS: PCP Internal Medicine Geriatric Medicine; Visit Provider Internal Medicine Geriatric Medicine
DX: R05.3 Chronic cough (principal)
CPT/HCPCS: 71046

== ENCOUNTER 2023-01-02 13:48 | Outpatient (REF) | payer OTHER, SELFPAY ==
[2023-01-02 15:21] LABS: MANUAL DIFF FLAG NO
[2023-01-02 16:30] LABS: Basophils Percent Auto 0.6 % (0-2); Eosinophils Absolute Auto 0.1 X10*3/uL (0.0-0.4); Eosinophils Percent Auto 2.1 % (0-4); Hematocrit 37.7 % (37.0-47.0); Hemoglobin 12.3 g/dl (12.0-16.0); Imm Gran Abs Auto 0.01 X10*3/uL (0.00-0.03); Imm Gran Pct Auto 0.2 % (0.0-0.4); Lymphocytes Percent Auto 19.6 % (20-40); Mean Corpuscular HGB Conc 32.6 g/dl (31.0-35.0); Mean Corpuscular Hemoglobin 27.3 pg (27.0-33.0); Mean Corpuscular Volume 83.8 fL (80.0-98.0); Mean Platelet Volume 12.6 fL (9.4-12.3); Monocytes Absolute Auto 0.4 X10*3/uL (0.1-1.2); Monocytes Percent Auto 7.5 % (2-11); Neutrophils Absolute Auto 3.7 x10*3/uL (2.0-8.3); Platelet Count 164 X10*3/uL (160-400); Red Cell Distribution Width 14.5 % (11.0-16.0); White Blood Count 5.3 X10*3/uL (4.8-10.8)
[2023-01-02 17:06] LABS: Alanine Aminotransferase 22 U/L (0-31); Albumin Level 4.4 g/dL (3.5-5.0); Alkaline Phosphatase 78 U/L (39-117); Anion Gap 12 (12-20); Aspartate Amino Transferase 24 U/L (5-31); Bilirubin Total 0.4 mg/dL (0.0-1.0); Blood Urea Nitrogen 20 mg/dL (9-16); C Reactive Protein 1.12 mg/dL (< or = 0.50); Calcium 9.7 mg/dL (8.4-10.2); Carbon Dioxide 27 mmol/L (22-29); Chloride 107 mmol/L (96-108); Estimated Glomerular Filt Rate > 60; Glucose Random 88 mg/dL (60-115); Potassium 4.1 mmol/L (3.3-5.1); Sodium 142 mmol/L (135-145); Total Protein 7.7 g/dL (6.5-8.0)
[2023-01-02 17:26] LABS: Erythrocyte Sedimentation Rate 67 MM/HR (0-20)
[2023-01-04 21:48] LABS: TS Negative Control Passed; TS Panel A 1; TS Panel B 4; TS Positive Control Passed; TSpotTB Negative (Negative)
[2023-01-05 08:42] LABS: HBS Num1 23.38 mIU/mL (0-7.99); HBsAGNum1 0.37 S/CO (0.00-0.99); Hepatitis B Core Antibody Nonreactive (Nonreactive); Hepatitis B Surface Antigen Negative (Negative); ~HepC Num1 0.19 S/CO (0.00-0.79); ~Hepatitis A Antibody IgM Nonreactive (Nonreactive); ~Hepatitis B Surface Antibody REACTIVE (Nonreactive); ~Hepatitis C Antibody Nonreactive (Nonreactive)
[2023-01-06 23:43] LABS: Prot Elec - Albumin 4.5 g/dL (3.8-4.8); Prot Elec - Alpha1 0.3 g/dL (0.2-0.3); Prot Elec - Alpha2 0.8 g/dL (0.5-0.9); Prot Elec - Beta 1 0.6 g/dL (0.4-0.6); Prot Elec - Beta 2 0.4 g/dL (0.2-0.5); Prot Elec - Gamma 1.3 g/dL (0.8-1.7); Prot Elec - Total Protein 7.9 g/dL (6.1-8.1)
[2023-01-07 09:08] LABS: IgA 487 mg/dL (47-310); IgG 1142 mg/dL (600-1640); IgM 545 mg/dL (50-300)
== END 2023-01-02 13:49 | disposition home or self-care (01) ==
LOC: HO.LAB 13:48
PROVIDERS: PCP Internal Medicine Geriatric Medicine; Visit Provider Student in an Organized Health Care Education/Training Program
DX: Z11.59 Encounter for screening for other viral diseases (principal); Z11.7 Encounter for testing for latent tuberculosis infection; M06.09 Rheumatoid arthritis without rheumatoid factor, multiple sites; R05.3 Chronic cough; Z72.89 Other problems related to lifestyle
CPT/HCPCS: 36415; 80053; 82784; 84165; 85025; 85652; 86140; 86334; 86481; 86704; 86706; 86709; 86803; 87340; 99212

== ENCOUNTER 2023-02-14 09:57 | Outpatient (REF) | payer OTHER, SELFPAY ==
[2023-02-14 11:20] LABS: Anion Gap 12 (12-20); Blood Urea Nitrogen 18 mg/dL (9-16); Calcium 9.7 mg/dL (8.4-10.2); Carbon Dioxide 29 mmol/L (22-29); Chloride 106 mmol/L (96-108); Estimated Glomerular Filt Rate > 60; Glucose Random 147 mg/dL (60-115); Potassium 3.9 mmol/L (3.3-5.1); Sodium 143 mmol/L (135-145)
== END 2023-02-14 09:58 | disposition home or self-care (01) ==
LOC: HO.LAB 09:57
PROVIDERS: PCP Internal Medicine Geriatric Medicine; Visit Provider Student in an Organized Health Care Education/Training Program
DX: M06.09 Rheumatoid arthritis without rheumatoid factor, multiple sites (principal)
CPT/HCPCS: 36415; 80048

== ENCOUNTER 2023-02-20 14:41 | Outpatient (REF) | payer OTHER, SELFPAY ==
[2023-02-20 15:29] LABS: MANUAL DIFF FLAG NO
[2023-02-20 15:34] LABS: Basophils Percent Auto 0.4 % (0-2); Eosinophils Absolute Auto 0.1 X10*3/uL (0.0-0.4); Eosinophils Percent Auto 1.9 % (0-4); Hematocrit 36.6 % (37.0-47.0); Hemoglobin 11.6 g/dl (12.0-16.0); Imm Gran Abs Auto 0.01 X10*3/uL (0.00-0.03); Imm Gran Pct Auto 0.2 % (0.0-0.4); Lymphocytes Percent Auto 19.8 % (20-40); Mean Corpuscular HGB Conc 31.7 g/dl (31.0-35.0); Mean Corpuscular Hemoglobin 26.8 pg (27.0-33.0); Mean Corpuscular Volume 84.5 fL (80.0-98.0); Mean Platelet Volume 10.1 fL (9.4-12.3); Monocytes Absolute Auto 0.4 X10*3/uL (0.1-1.2); Neutrophils Absolute Auto 3.3 x10*3/uL (2.0-8.3); Neutrophils Percent Auto 68.7 % (45-73); Platelet Count 182 X10*3/uL (160-400); Red Blood Count 4.33 X10*6/uL (4.20-5.50); Red Cell Distribution Width 14.2 % (11.0-16.0); White Blood Count 4.8 X10*3/uL (4.8-10.8)
[2023-02-20 16:49] LABS: Erythrocyte Sedimentation Rate 54 MM/HR (0-20)
[2023-02-23 20:49] LABS: IgA 467 mg/dL (47-310); IgG 962 mg/dL (600-1640); IgM 532 mg/dL (50-300)
[2023-03-01 16:43] LABS: Asperg fumigatus Precip Abs NEGATIVE (NEGATIVE); Micropoly faeni Abs NEGATIVE (NEGATIVE); Pigeon serum Abs NEGATIVE (NEGATIVE); Saccharo pora viridis Abs NEGATIVE (NEGATIVE); Thermo candidus Abs NEGATIVE (NEGATIVE); Thermoa vulgaris #1 NEGATIVE (NEGATIVE)
== END 2023-02-20 14:42 | disposition home or self-care (01) ==
LOC: HO.LAB 14:41
PROVIDERS: PCP Internal Medicine Geriatric Medicine; Visit Provider Hospitalist
DX: R91.8 Other nonspecific abnormal finding of lung field (principal); J40 Bronchitis, not specified as acute or chronic; R05.3 Chronic cough; M06.09 Rheumatoid arthritis without rheumatoid factor, multiple sites; J30.9 Allergic rhinitis, unspecified
CPT/HCPCS: 36415; 82784; 82785; 85025; 85652; 86003; 86331; 86606; 86609; 99202

== ENCOUNTER 2023-02-25 14:44 | Outpatient (REF) | payer OTHER, SELFPAY ==
--- NOTE | ~2023-02-25 | CT_ITS ---
EXAMINATION: CT CHEST WITH CONTRAST CLINICAL INFORMATION: Chronic cough COMPARISON: Previous chest x-ray November 2022 TECHNIQUE: Multidetector volumetric CT imaging of the chest was obtained after the administration of 65 mL of Omnipaque 350 intravenous contrast without immediate adverse reactions. Axial MIP volume rendering provided. Sagittal and coronal reformatted images were obtained. This CT examination was performed using dose optimization techniques as appropriate, variously including the following: *Automated exposure control *Adjustment of mA and/or kV according to patient size (this includes techniques or standardized protocols for targeted exams where dose is matched to indication/reason for exam; i.e. extremities or head) *Use of iterative reconstruction technique DLP: 155 mGy-cm FINDINGS: CLINICAL TRIALS MANAGER: Unremarkable LUNGS: Small 2 mm nodule left upper lobe axial image 32 series 5, peripheral or subpleural left upper lobe adjacent to the fissure axial image 48 series 5, peripheral left lower lobe nodule axial image 82 series 5, left lower lobe nodule axial image 124 series 5. 4 mm calcified left upper lobe nodule axial image 56 series 5. 2 mm peripheral calcified right lower lobe nodule axial image 1:15 series 5. Increased peripheral reticular markings in the anterior left upper lobe, question related to previous chest wall radiation. No evidence of interstitial lung disease edema or bronchiectasis. MEDIASTINUM: Normal heart size. Coronary artery calcification. No pericardial effusion. Caliber thoracic aorta. No enlarged hilar or mediastinal lymph nodes. PLEURA: There is no pleural effusion. No pleural mass or thickening. AXILLA: No enlarged axillary lymph nodes. Asymmetric density right breast near the nipple measuring 1.3 x 2.8 cm axial image 26 series 3. Correlation with physical exam and mammogram recommended. UPPER ABDOMEN: Mild fatty infiltration of the liver. Question mild fold thickening of the proximal stomach. Small left renal stone. Atherosclerotic disease. OSSEOUS STRUCTURES: Mild degenerative changes of the spine. . CT/CT chest w IV con IMPRESSION: Small calcified and noncalcified pulmonary nodules. According to the UPDATED 2017 Fleischner Society recommendations, the advised follow-up imaging for less than 6 mm solid nodule: Low risk, no chest CT follow-up and high risk, optional chest CT follow-up in one year. Increased peripheral interstitial markings in the anterior left upper lobe, question related to previous chest wall radiation. Asymmetric density in the right breast . Correlation with physical exam and mammogram recommended. Fleischner guidelines were followed.
[2023-02-25] MEDS: iohexoL 350 MG/ML 100 ML INFUS..BTL IV (15:25)
== END 2023-02-25 14:45 | disposition home or self-care (01) ==
LOC: HO.CT 14:44
PROVIDERS: PCP Internal Medicine Geriatric Medicine; Visit Provider Student in an Organized Health Care Education/Training Program
DX: R05.3 Chronic cough (principal)
CPT/HCPCS: 71260; Q9967

== ENCOUNTER → 2023-02-27 10:17 | Outpatient (BNVA) | payer OTHER, SELFPAY | PROVIDERS: PCP Internal Medicine Geriatric Medicine; Visit Provider Surgery | DX: D05.11 Intraductal carcinoma in situ of right breast (principal); D05.12 Intraductal carcinoma in situ of left breast | CPT/HCPCS: 99212 ==

== ENCOUNTER 2023-04-10 14:59 | Outpatient (AMB) | payer OTHER, SELFPAY ==
[2023-04-10 15:01] VITALS: BP 142/72; PULSE 79; TEMP 36.4; BMI 29.9
--- NOTE | 2023-04-10 15:01 | A.OFFVIS_ITS ---
Intake Vital Signs 04/10/23 15:01 Height 5 ft Weight 153 lb 3.54 oz BMI 29.9 BP 142/72 H Blood Pressure Location Rt brachial Position Sitting Pulse 79 Pulse Source Pulse Oximeter Temp 97.5 F Temp Source Skin Intake Visit Reasons: RA Intake Note: * Pt seen today for RA follow up, last seen 01/02/23. * C/o hand pain Oxygen Equipment Preparer Required: No Accompanied by: Daughter Allergies No Known Allergies Allergy (Verified 04/10/23 15:03) Medication List - Last Reconciled 04/10/23 by Briana Chambers MD albuterol sulfate 90 mcg/actuation (Ventolin HFA) 0 mcg inhalation calcitriol 0.25 mcg PO DAILY clonidine HCl 0.2 mg PO DAILY dexlansoprazole (Dexilant) 60 mg PO DAILY famotidine (Pepcid) 40 mg PO BEDTIME food supplemt, lactose-reduced (Ensure Plus High Protein) 30 ea PO DAILY hydrocortisone 1% 1 appl topical NEEDED hydrocortisone 1% topical ibuprofen 600 mg PO TID lorazepam 1 tab PO DAILY PRN naloxone 4 mg/actuation 0 sprays intranasal nystatin 1 appl topical BID quetiapine (Seroquel) 25 mg PO DAILY tramadol 50 mg PO Q8H PRN HPI HPI Comments History of Present Illness Details 58-year-old female with seropositive RA returns for follow-up. Continues to have pain and stiffness in her hands and knuckles. Her cough and shortness of breath have improved. She is using Ventolin inhaler once daily. She also states that her GI upset is better overall currently she is able to swallow small tablets but vomits out large capsules. Previous visit: 57-year-old female with seropositive RA returns for follow-up. She was last seen by Keyla Womack last year. Patient states that she continues to have pain and swelling of her knuckles and fingers. Usually worse in the morning. She was diagnosed with gastroparesis and was tried on multiple medicines without significant improvement. She states that whenever she takes any medication she vomits it out. She is unable to keep medications down. Over the last 3-4 months she has been having a chronic cough usually dry and occasionally with sputum. She sleeps using 2 pillows. She gets short of breath with going up the stairs. Per Keyla womack: She was started on plaquenil 200mg po BID for RA. She stopped the medication because she experienced vomiting, hot flashes and numbness in her lower extremities. She reported that she felt that the plaquenil was interacting with her exemestane and that her symptoms have resolved since stopping the plaquenil. She admits to continued bilateral hand pain, swelling, and morning stiffness that lasts more then 10 minutes. She states that she feels that her hand pain is overall stable. Pain is worse with use. X ray of bilateral hands in May 2021 showed osteoarthritis. She is following with Dr Santoyo for ductal carcinono ma of both breasts. Dr Acuna for breast surgery and with GI for GERD. She has an appointment with Dr Santoyo tomorrow and Dr Acuna in December. She continues to have intermittent right knee pain, xray at last visit showed arthritis. She states that her pain is constant, present when she is at rest, walking or using the stairs. She reports lower back pain that started today. She was reaching up for a bowl and felt pain. She has not yet taken tramadol or tried supportive measures today as she has been at appointments. She denies numbness or bladder involvement. Initial history by Dr. Norwood: Patient reports pain in her hands and her wrists that has been present for approximately 2 years. Symptoms are generally worse in her right hand. States that she can experience swelling in her wrists and occasionally her fingers can lock up. States that she does not have symptoms daily, states that they come and go. Gets symptoms approximately a few times per months. Gets morning stiffness in her hands that can last a few minutes. Also feels that her hands can become numb when she first wakes up. Patient has a photo on her phone which she showed me that does demonstrate swelling in the MCP joints of her right hand. Pt has breast cancer, completed radiation therapy approximately 7 months ago and now takes an aromatase inhibitor. Patient denies Raynaud's, photosensitivity, oral or nasal ulcers, sicca symptoms, fevers. No family history of RA or SLE. 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 Esophagitis with gastritis Fatty liver History of ITP Hypercholesteremia IBS (irritable bowel syndrome) Osteoporosis Prediabetes Surgical History H/O tubal ligation History of breast surgery (~11/11/19) History of esophagogastroduodenoscopy (EGD) History of eye surgery History of lumpectomy of both breasts (~10/03/19) Family History Mother HTN (hypertension) Father Diabetes Daughter Fibromyoma Maternal Aunt Cervical cancer Social History Household Members: None Housing: Apartment Are you a primary intensive care unit registered nurse to a significant other at home: No Do you presently have visiting nurse or other home services: Yes ([facility]) Alcohol intake: never Patient Tobacco Use Status: Former Tobacco user service: No Current occupational status: unemployed Review of Systems GI Reports nausea and Reports vomiting Musc Reports arthralgias, Reports joint swelling and Reports stiffness Psych Reports anxiety Physical Exam Vital Signs: Last Vital Signs Temp 97.5 F 04/10/23 15:01 Pulse 79 04/10/23 15:01 BP 142/72 H 04/10/23 15:01 BMI result Body Mass Index 29.9 Const General: cooperative, healthy appearing and comfortable Nutritional Appearance: overweight Orientation/consciousness: patient oriented x3 Limitations: no limitations HEENT Head: Yes normocephalic and Yes atraumatic Mouth: moist mucous membranes Resp Effort & Inspection: normal respiratory effort and able to speak in complete sentences Neuro General: patient oriented x3 Extrem Other: Left wrist swelling and tenderness and pain with flexion and extension Right wrist pain with full flexion and extend Right 3rd MCP swelling and tenderness Few Heberden's nodes Bilateral knee pain with full extension Assessment & Plan Assessment & Plan (1) Rheumatoid arthritis: Comment: -ve +++CCP dx 2020 HCQ started 11/2020. Caused GI upset and discontinued Code(s): M06.9 - Rheumatoid arthritis, unspecified Qualifiers: Rheumatoid arthritis location: multiple sites Rheumatoid factor presence: without rheumatoid factor Qualified Code(s): M06.09 - Rheumatoid arthritis without rheumatoid factor, multiple sites Plan: This is a 58-year-old female with seropositive rheumatoid arthritis returns for follow-up. Continues to have synovitis on exam. Last visit patient was having a chronic cough, CT chest showed small lung nodules but no signs of mildly. She was evaluated by Pulmonary and Ventolin inhaler was prescribed with improved cough. Patient is having symptoms of gastroparesis she cannot tolerate large capsules. I discussed with Dr. aSntoyo, can use methotrexate or TNF inhibitors if needed. Patient failed hydroxychloroquine.. Discussed risks and benefits of methotrexate. Patient agreed to proceed. Start methotrexate 15 mg once weekly for 2 weeks then increase to 20 mg once weekly plus folic acid 1 mg daily. Labs in 6 weeks and in 12 weeks before next visit. 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 Will monitor patient for side effects with frequent lab work. Advised patient to take folic acid daily to prevent complications of methotrexate. Plan I spent 29 minutes reviewing patient's chart, evaluating patient, ordering diagnostic workup, counseling patient and documenting in the chart Orders: Orders Comprehensive Met. Panel 12 Weeks M06.9 - Rheumatoid arthritis, unspecified C Reactive Protein 12 Weeks M06.9 - Rheumatoid arthritis, unspecified Complete Blood Count Auto Diff 12 Weeks M06.9 - Rheumatoid arthritis, unspecified Erythrocyte Sedimentation Rate 12 Weeks M06.9 - Rheumatoid arthritis, unspecified Comprehensive Met. Panel 6 Weeks M06.9 - Rheumatoid arthritis, unspecified C Reactive Protein 6 Weeks M06.9 - Rheumatoid arthritis, unspecified Complete Blood Count Auto Diff 6 Weeks M06.9 - Rheumatoid arthritis, unspecified Erythrocyte Sedimentation Rate 6 Weeks M06.9 - Rheumatoid arthritis, unspecified Medications: New methotrexate sodium Take 6 tabs by mouth once a week for 2 weeks then 8 tabs once weekly 48 tabs 0RF folic acid 1 mg PO DAILY 90 tabs 1RF Coding Level of Care Code Est Pt Level 4 (72681) Diagnoses Rheumatoid arthritis M06.09 Rheumatoid arthritis location: multiple sites Rheumatoid factor presence: without rheumatoid factor manager terminal methotrexate user Z79.631
== END 2023-04-10 15:26 | disposition home or self-care (01) ==
PROVIDERS: PCP Internal Medicine Geriatric Medicine; Visit Provider Student in an Organized Health Care Education/Training Program
DX: M06.09 Rheumatoid arthritis without rheumatoid factor, multiple sites (principal); Z79.631 Long term (current) use of antimetabolite agent
CPT/HCPCS: 99214

== ENCOUNTER → 2023-04-10 14:59 | Outpatient (BNVA) | payer OTHER, SELFPAY | PROVIDERS: PCP Internal Medicine Geriatric Medicine; Visit Provider Student in an Organized Health Care Education/Training Program | DX: M06.09 Rheumatoid arthritis without rheumatoid factor, multiple sites (principal); Z79.631 Long term (current) use of antimetabolite agent | CPT/HCPCS: 99212 ==

== ENCOUNTER 2023-06-01 14:59 | Outpatient (AMB) | payer OTHER, SELFPAY ==
[2023-06-01 15:22] VITALS: BP 124/60; PULSE 81; O2SAT 97; BMI 28.9
--- NOTE | 2023-06-01 15:22 | MHC.OFFVIS ---
Intake Vital Signs 06/01/23 15:22 Height 5 ft Weight 148 lb BMI 28.9 BP 124/60 Blood Pressure Location Lt brachial Position Sitting Pulse 81 Pulse Source Pulse Oximeter Pulse Oximetry (%) 97 Oxygen Delivery Method Room Air Intake Visit Reasons: Cough Allergies No Known Allergies Allergy (Verified 06/01/23 15:24) HPI HPI Comments History of Present Illness Details The patient is a 57 year woman with a known history of rheumatoid arthritis in addition to breast cancer status post radiation and also surgery. Apparently she has been developing worsening cough. The cough is moderate severe. Worse when she lays flat. At times is productive. She does have a rescue inhaler that does provide her some relief. At this point the cough is a little better. She did have a chest x-ray demonstrating evidence of peribronchial cuffing suggesting some degree of bronchitis. The patient does have underlying connective tissue conditions and she did follow-up with Rheumatology. The recommendation was for her to have a CT scan of the chest with high-resolution cuts to assess for interstitial lung disease related to her connective tissue disease. The CT scan has not been completed as of yet. Will follow up with the results. In the meantime will request additional blood work. since the patient is doing well will hold off on additional medications. If the patient has any worsening symptoms prior to the next visit she is to call for further evaluation. Will await the blood work and also await her CT scan of the chest for further recommendations. 06/01/2023 the patient overall so better. Her cough is significantly better. She was recently placed on methotrexate and seems to be tolerating well. No evidence of any pulmonary adverse effects from the methotrexate at this time. Explained to the patient ultimately treating her rheumatoid arthritis may also improve her airway issues. We did review her blood work no significant allergies noted. Also she had a CT scan of the chest which we personally reviewed no evident a evidence of interstitial lung disease. The patient does have pulmonary nodules bilaterally that we need to be followed up with a CT scan in a year's time. This would be February of 2024. the patient does have a rescue inhaler that she is not required. at this point the patient is going to continue with short-acting beta agonist. Will continue to monitor her response to methotrexate. Will follow-up in February after her CT scan. 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 Surgical History History of eye surgery History of breast surgery (~11/11/19) History of esophagogastroduodenoscopy (EGD) H/O tubal ligation History of lumpectomy of both breasts (~10/03/19) Family History Mother HTN (hypertension) Father Diabetes Daughter Fibromyoma Maternal Aunt Cervical cancer Social History Household Members: None Housing: Apartment Are you a primary respiratory care technician to a significant other at home: No Do you presently have visiting nurse or other home services: Yes ([facility]) Alcohol intake: never Patient Tobacco Use Status: Former Tobacco user service: No Current occupational status: unemployed Review of Systems Const Reports weight loss Eyes Reports dry eyes and Reports itchy eyes ENT Reports dry mouth and Reports tinnitus Card Denies dyspnea on exertion Resp Denies cough and Denies dyspnea on exertion GI Reports constipation, Reports nausea and Reports vomiting Musc Reports arthralgias, Reports joint swelling and Reports stiffness Psych Reports anxiety Aller/Immun Reports itchy eyes Physical Exam Vital Signs: Last Vital Signs Pulse 81 06/01/23 15:22 BP 124/60 06/01/23 15:22 Pulse Ox 97 06/01/23 15:22 Oxygen Delivery Method Room Air 06/01/23 15:22 BMI result Body Mass Index 28.9 Const General: cooperative, healthy appearing and comfortable Nutritional Appearance: overweight Orientation/consciousness: patient oriented x3 Limitations: no limitations HEENT Head: Yes normocephalic and Yes atraumatic Mouth: moist mucous membranes Resp Effort & Inspection: normal respiratory effort and able to speak in complete sentences Auscultation: clear to auscultation bilaterally Cardio Rate: regular rate Rhythm: regular rhythm Heart sounds: S1 normal heart sound present and S2 normal heart sound present GI Inspection: No distended Palpation (GI): Soft to palpation and nontender Skin General skin exam: no rashes or lesions noted Neuro General: patient oriented x3 Assessment & Plan Assessment & Plan (1) Bronchitis: Code(s): J40 - Bronchitis, not specified as acute or chronic (2) Chronic cough: Code(s): R05.3 - Chronic cough (3) Rheumatoid arthritis: Comment: -ve +++CCP dx 2020 HCQ started 11/2020. Caused GI upset and discontinued Code(s): M06.9 - Rheumatoid arthritis, unspecified Qualifiers: Rheumatoid arthritis location: multiple sites Rheumatoid factor presence: without rheumatoid factor Qualified Code(s): M06.09 - Rheumatoid arthritis without rheumatoid factor, multiple sites (4) Allergic rhinitis: Code(s): J30.9 - Allergic rhinitis, unspecified Qualifiers: Allergic rhinitis seasonality: unspecified Allergic rhinitis trigger: other Qualified Code(s): J30.89 - Other allergic rhinitis (5) Radiation fibrosis of lung: Code(s): J70.1 - Chronic and other pulmonary manifestations due to radiation (6) Pulmonary nodules: Code(s): R91.8 - Other nonspecific abnormal finding of lung field Plan Continue CRISTIN as needed CT chest 02/2024 continue MTX F/U 02/2024 Orders: Orders CT chest wo IV con 02/20/24 R91.8 - Other nonspecific abnormal finding of lung field Coding Level of Care Code Est Pt Level 4 (81599) Diagnoses Bronchitis J40 Chronic cough R05.3 Rheumatoid arthritis of multiple sites with negative rheumatoid factor M06.09 Rheumatoid arthritis location: multiple sites Rheumatoid factor presence: without rheumatoid factor Allergic rhinitis due to other allergic trigger, unspecified seasonality J30.89 Allergic rhinitis seasonality: unspecified Allergic rhinitis trigger: other Radiation fibrosis of lung J70.1 Pulmonary nodules R91.8 Time Spent (min) 19
== END 2023-06-01 15:47 | disposition home or self-care (01) ==
PROVIDERS: PCP Internal Medicine Geriatric Medicine; Visit Provider Hospitalist
DX: J40 Bronchitis, not specified as acute or chronic (principal); R05.3 Chronic cough; M06.09 Rheumatoid arthritis without rheumatoid factor, multiple sites; J30.89 Other allergic rhinitis; J70.1 Chronic and other pulmonary manifestations due to radiation; R91.8 Other nonspecific abnormal finding of lung field
CPT/HCPCS: 99214

== ENCOUNTER → 2023-06-01 14:59 | Outpatient (BNVA) | payer OTHER, SELFPAY | PROVIDERS: PCP Internal Medicine Geriatric Medicine; Visit Provider Hospitalist | DX: J40 Bronchitis, not specified as acute or chronic (principal); R05.3 Chronic cough; M06.09 Rheumatoid arthritis without rheumatoid factor, multiple sites; J30.89 Other allergic rhinitis; J70.1 Chronic and other pulmonary manifestations due to radiation; R91.8 Other nonspecific abnormal finding of lung field | CPT/HCPCS: 99212 ==

== ENCOUNTER 2023-07-28 14:32 | Outpatient (AMB) | payer OTHER, SELFPAY ==
[2023-07-28 14:35] VITALS: BP 144/90; PULSE 85; BMI 28.5
--- NOTE | 2023-07-28 14:35 | MHC.OFFVIS ---
Intake Vital Signs 07/28/23 14:35 Height 5 ft Weight 146 lb 2.664 oz BMI 28.5 BP 144/90 H Blood Pressure Location Rt brachial Position Sitting Pulse 85 Pulse Source Pulse Oximeter Intake Visit Reasons: RA Intake Note: Pt last seen 04/10/23, presents today for follow up and test results. MTX nausea and vomiting Client Technical Specialist Required: No Accompanied by: Daughter Allergies folic acid Adverse Reaction (Unknown, Verified 07/28/23 14:39) Rash on neck HPI HPI Comments History of Present Illness Details 58-year-old female with seropositive RA returns for follow-up. Per daughter, patient took methotrexate for 4 weeks. She states that she developed an allergic reaction to folic acid with an erythematous itchy skin rash on her chest. Per daughter patient vomits the majority of her medications. She feels about the same. Recently her main complaint is left wrist pain and swelling. She is wearing a compression bandage on her left wrist. Previous visit: 57-year-old female with seropositive RA returns for follow-up. She was last seen by Keyla Womack last year. Patient states that she continues to have pain and swelling of her knuckles and fingers. Usually worse in the morning. She was diagnosed with gastroparesis and was tried on multiple medicines without significant improvement. She states that whenever she takes any medication she vomits it out. She is unable to keep medications down. Over the last 3-4 months she has been having a chronic cough usually dry and occasionally with sputum. She sleeps using 2 pillows. She gets short of breath with going up the stairs. Per Keyla womack: She was started on plaquenil 200mg po BID for RA. She stopped the medication because she experienced vomiting, hot flashes and numbness in her lower extremities. She reported that she felt that the plaquenil was interacting with her exemestane and that her symptoms have resolved since stopping the plaquenil. She admits to continued bilateral hand pain, swelling, and morning stiffness that lasts more then 10 minutes. She states that she feels that her hand pain is overall stable. Pain is worse with use. X ray of bilateral hands in May 2021 showed osteoarthritis. She is following with Dr Santoyo for ductal carcinonoma of both breasts. Dr Acuna for breast surgery and with GI for GERD. She has an appointment with Dr Santoyo tomorrow and Dr Acuna in December. She continues to have intermittent right knee pain, xray at last visit showed arthritis. She states that her pain is constant, present when she is at rest, walking or using the stairs. She reports lower back pain that started today. She was reaching up for a bowl and felt pain. She has not yet taken tramadol or tried supportive measures today as she has been at appointments. She denies numbness or bladder involvement. Initial history by Dr. Norwood: Patient reports pain in her hands and her wrists that has been present for approximately 2 years. Symptoms are generally worse in her right hand. States that she can experience swelling in her wrists and occasionally her fingers can lock up. States that she does not have symptoms daily, states that they come and go. Gets symptoms approximately a few times per months. Gets morning stiffness in her hands that can last a few minutes. Also feels that her hands can become numb when she first wakes up. Patient has a photo on her phone which she showed me that does demonstrate swelling in the MCP joints of her right hand. Pt has breast cancer, completed radiation therapy approximately 7 months ago and now takes an aromatase inhibitor. Patient denies Raynaud's, photosensitivity, oral or nasal ulcers, sicca symptoms, fevers. No family history of RA or SLE. 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 Surgical History History of eye surgery History of breast surgery (~11/11/19) History of esophagogastroduodenoscopy (EGD) H/O tubal ligation History of lumpectomy of both breasts (~10/03/19) Family History Mother HTN (hypertension) Father Diabetes Daughter Fibromyoma Maternal Aunt Cervical cancer Social History Household Members: None Housing: Apartment Are you a primary medicare insurance specialist to a significant other at home: No Do you presently have visiting nurse or other home services: Yes ([facility]) Alcohol intake: never Patient Tobacco Use Status: Former Tobacco user service: No Current occupational status: unemployed Review of Systems [facility] [place] arthralgias, Reports joint swelling and Reports stiffness Physical Exam Vital Signs: Last Vital Signs Pulse 85 07/28/23 14:35 BP 144/90 H 07/28/23 14:35 BMI result Body Mass Index 28.5 Const General: cooperative, healthy appearing and comfortable Nutritional Appearance: overweight Orientation/consciousness: patient oriented x3 Limitations: no limitations HEENT Head: Yes normocephalic and Yes atraumatic Resp Effort & Inspection: normal respiratory effort and able to speak in complete sentences Neuro General: patient oriented x3 Extrem Other: Left wrist swelling and tenderness and pain with flexion and extension Right 3rd MCP minimal swelling and tenderness Few Heberden's nodes Office Procedures Joint Injection/Drain Joint Injection/Drain Details: Left wrist Prep: site was prepped using sterile technique and ethochloride spray was applied Injected: 20 mg of, Kenalog and other (0.1 mL of 1% lidocaine) Approach Used: other Procedure: The patient tolerated the procedure well and but had some pain with the injection Coding Details: The area over the dorsum of the left wrist was prepped with ChloraPrep then using a 27 gauge needle 20 mg of Kenalog mixed with 0.1 cc of 1% lidocaine was injected into the wrist joint space. The patient tolerated the procedure well with no immediate adverse events - Medium joint Procedure code (CPT) selection complete Assessment & Plan Assessment & Plan (1) Rheumatoid arthritis: Comment: -ve +++CCP dx 2020 HCQ started 11/2020. Caused GI upset and discontinued MTX 03/2023 had an allergic reaction to folic acid Code(s): M06.9 - Rheumatoid arthritis, unspecified Qualifiers: Rheumatoid arthritis location: multiple sites Rheumatoid factor presence: without rheumatoid factor Qualified Code(s): M06.09 - Rheumatoid arthritis without rheumatoid factor, multiple sites Plan: This is a 58-year-old female with seropositive rheumatoid arthritis returns for follow-up. Patient took methotrexate for 4 weeks. Per daughter patient vomits multiple medications. He also mentioned that she had an allergic reaction to folic acid with a rash on her neck, Continues to have synovitis on exam. Most symptomatic today, is her left wrist. With patient's consent left wrist was injected with Kenalog today. Patient has a follow-up appointment with Dr. Santoyo this week. Follow-up in 3 months I discussed with Dr. Santoyo, can use methotrexate or TNF inhibitors if needed. Likely next DMARD would be an injectable bDMARD such as TNF inhibitors. Labs before next visit in 3 months Infectious screening: Hepatitis panel and T spot -ve 2022 Plan I spent 29 minutes reviewing patient's chart, evaluating patient, ordering diagnostic workup, counseling patient and documenting in the chart Orders: Orders AMB Joint Injection/Aspiration Today M06.9 - Rheumatoid arthritis, unspecified Complete Blood Count Auto Diff 3 Months M06.9 - Rheumatoid arthritis, unspecified Comprehensive Met. Panel 3 Months M06.9 - Rheumatoid arthritis, unspecified C Reactive Protein 3 Months M06.9 - Rheumatoid arthritis, unspecified Erythrocyte Sedimentation Rate 3 Months M06.9 - Rheumatoid arthritis, unspecified Coding Level of Care Code Est Pt Level 4 (50324) Diagnoses Rheumatoid arthritis of multiple sites with negative rheumatoid factor M06.09 Rheumatoid arthritis location: multiple sites Rheumatoid factor presence: without rheumatoid factor CPT Codes Coding - 46770 Medium joint: 87712 - Medium joint ([id number])
== END 2023-07-28 15:04 | disposition home or self-care (01) ==
PROVIDERS: PCP Internal Medicine Geriatric Medicine; Visit Provider Student in an Organized Health Care Education/Training Program
DX: M06.09 Rheumatoid arthritis without rheumatoid factor, multiple sites (principal)
CPT/HCPCS: 20605; 99214

== ENCOUNTER → 2023-07-28 14:32 | Outpatient (BNVA) | payer OTHER, SELFPAY | PROVIDERS: PCP Internal Medicine Geriatric Medicine; Visit Provider Student in an Organized Health Care Education/Training Program | DX: M06.09 Rheumatoid arthritis without rheumatoid factor, multiple sites (principal) | CPT/HCPCS: 20605; 99212 ==

== ENCOUNTER → 2023-09-04 11:00 | Outpatient (BNVA) | payer OTHER, SELFPAY | PROVIDERS: PCP Internal Medicine Geriatric Medicine; Visit Provider Surgery ==

== ENCOUNTER 2023-09-22 09:59 | Outpatient (AMB) | payer OTHER, SELFPAY ==
--- NOTE | 2023-09-22 09:59 | MHC.OFFVIS ---
Intake Intake Visit Reasons: Breast exam, 6 month follow up Intake Note: Patient is seen in office for 6 month follow up visit, breast exam. Patient c/o: continued pain in the breast, feel some lumps/cyst ? in the surgical area, denies discharge, redness, discoloration or other concerns mm sched: 11/03/23 Building Guard Deputy Sheriff Required: Yes Building Guard Deputy Sheriff Language: Truss Maker Name: Xiao LARA Information Interpreted: non-clinical & clinical Taping Supervisor: Taping Supervisor Present Accompanied by: Self / Same As Patient Allergies folic acid Adverse Reaction (Unknown, Verified 09/22/23 10:08) Rash on neck Medication List - Last Reconciled 09/22/23 by Phillip Acuna MD albuterol sulfate 90 mcg/actuation (Ventolin HFA) 90 mcg inhalation DAILY calcitriol 0.25 mcg PO DAILY clonidine HCl 0.2 mg PO DAILY dexlansoprazole 60 mg PO DAILY famotidine 40 mg PO BEDTIME hydrocortisone 1% 1 appl topical NEEDED ibuprofen 600 mg PO TID lorazepam 1 tab PO DAILY PRN nystatin 1 appl topical BID quetiapine (Seroquel) 25 mg PO DAILY HPI HPI Comments History of Present Illness Details Cece Metz is a 58 year old female patient of Dr. Crowell returning for a follow up breast examination following surgery for DCIS in bilateral breasts on 10/03/2019. Margins in the right side were felt to be close therefore a wider excision was performed on 11/11/2019 with no additional DCIS identified. She was initially placed on Tamoxifen by Dr. Santoyo but later changed to exemestane and seen by [facility] at [facility]. She completed radiation therapy 02/21/2020.? She continues to report bilateral breast pain especially on the right side the upper outer quadrant. She reports hardness in the upper outer quadrant of the right breast as well. She continues to follow Dr. Santoyo but is not currently on any oral antiestrogen medication. Most recent mammogram dated 11/13/2022 revealed bilateral post therapy changes but no significant changes from the prior study (BI-RADS 2: Benign). Annual bilateral mammography recommended in 12 months. She reports some skin changes around the left breast incision in mild discomfort in the right breast. She is scheduled for an annual mammogram on 11/03/2023. 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 Surgical History History of eye surgery History of breast surgery (~11/11/19) History of esophagogastroduodenoscopy (EGD) H/O tubal ligation History of lumpectomy of both breasts (~10/03/19) Family History Mother HTN (hypertension) Father Diabetes Daughter Fibromyoma Maternal Aunt Cervical cancer Social History Household Members: None Housing: Apartment Are you a primary direct care specialist to a significant other at home: No Do you presently have visiting nurse or other home services: Yes ([facility]) Alcohol intake: never Patient Tobacco Use Status: Former Tobacco user service: No Current occupational status: unemployed Review of Systems Const Denies chills, Denies fever(s) and Denies poor appetite Card Denies chest pain, Denies rapid heart rate, Denies palpitations and Denies slow heart rate Resp Denies chest congestion, Denies cough, Denies pain on inspiration and Denies wheezing Denies nipple discharge Musc Denies back pain, Reports arthralgias, Denies joint swelling and Denies numbness Skin/Breast Reports as per HPI, Reports breast pain, Denies change in pigmentation, Denies nipple discharge, Denies erythema and Denies rash Neuro Denies numbness Endo Denies palpitations Woodrow/Lymph Denies lymphadenopathy Aller/Immun Denies wheezing Physical Exam Const General: comfortable and no acute distress Nutritional Appearance: well nourished Orientation/consciousness: patient oriented x3 Limitations: no limitations HEENT Head: Yes normocephalic and Yes atraumatic Chest Other: Right breast with volume loss specially in the upper outer quadrant with hollows from the prior surgery. No discrete masses appreciated within this area or in the remaining breast tissue. Skin retraction essentially unchanged from prior examinations. No enlarged lymph nodes, palpable mass, or new skin changes appreciated. No nipple discharge. Left breast with post radiation change but well-healed scar and no palpable mass, skin change, nipple discharge or enlarged lymph nodes. 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 She subsequent underwent radiation therapy and returns today for follow-up breast examination. Examination reveals residual post therapy changes and volume loss right breast but no suspicious findings in either breast. Her recent mammogram of 10/28/2022 reveals no new suspicious findings. Routine annual mammography scheduled for 11/03/2023. I have asked her to return in 6 months for follow-up breast examination. She should call for any new concerns. 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
== END 2023-09-22 10:19 | disposition home or self-care (01) ==
PROVIDERS: PCP Internal Medicine Geriatric Medicine; Visit Provider Surgery
DX: D05.11 Intraductal carcinoma in situ of right breast (principal); D05.12 Intraductal carcinoma in situ of left breast
CPT/HCPCS: 99213

== ENCOUNTER → 2023-09-22 09:59 | Outpatient (BNVA) | payer OTHER, SELFPAY | PROVIDERS: PCP Internal Medicine Geriatric Medicine; Visit Provider Surgery | DX: D05.11 Intraductal carcinoma in situ of right breast (principal); D05.12 Intraductal carcinoma in situ of left breast; Z92.3 Personal history of irradiation | CPT/HCPCS: 99212 ==

== ENCOUNTER 2023-11-05 13:39 | Outpatient (REF) | payer OTHER, SELFPAY ==
--- NOTE | ~2023-11-05 | MM_ITS ---
EXAMINATION: MM SCREENING DIGITAL BREAST TOMOSYNTHESIS, BILATERAL CLINICAL INFORMATION: Screening. Asymptomatic. The patient is status post bilateral breast surgery for DCIS. COMPARISON: Mammography: This study is compared with prior exams dating back to 2019. TECHNIQUE: Digital breast tomosynthesis is performed in both the craniocaudal and mediolateral oblique views along with computer-aided detection (CAD). Synthesized 2D images are generated from the tomosynthesis. FINDINGS: There are scattered areas of fibroglandular density (ACR BI-RADS breast composition Category b). There are bilateral postsurgical changes in the upper outer quadrants of each breast from prior surgery for DCIS. There are no significant masses, abnormal calcifications, or other abnormalities. MM/MM tomosynthesis screening BI IMPRESSION: No mammographic evidence of malignancy. ASSESSMENT: BI-RADS BI-RADS 2 - Benign Findings RECOMMENDATION: Routine annual mammography screening. 1 year F/U This examination should not preclude the clinical evaluation of a suspicious palpable abnormality. This patient's information was entered into a reminder system with a target due date for their next mammogram.
== END 2023-11-05 13:40 | disposition home or self-care (01) ==
LOC: HO.MAMMO 13:39
PROVIDERS: PCP Internal Medicine Geriatric Medicine; Visit Provider Internal Medicine Geriatric Medicine
DX: Z12.31 Encounter for screening mammogram for malignant neoplasm of breast (principal)
CPT/HCPCS: 77063; 77067

== ENCOUNTER → 2023-11-05 13:45 | Outpatient (BNV) | payer OTHER, SELFPAY | PROVIDERS: PCP Internal Medicine Geriatric Medicine; Visit Provider Radiology Diagnostic Radiology | DX: Z12.31 Encounter for screening mammogram for malignant neoplasm of breast (principal) | CPT/HCPCS: 77063; 77067 ==

== ENCOUNTER 2023-11-13 16:29 | Outpatient (REF) | payer OTHER, SELFPAY ==
[2023-11-13 16:39] LABS: MANUAL DIFF FLAG NO
[2023-11-13 18:17] LABS: Basophils Percent Auto 0.4 % (0-2); Eosinophils Absolute Auto 0.1 X10*3/uL (0.0-0.4); Eosinophils Percent Auto 1.7 % (0-4); Hematocrit 37.6 % (37.0-47.0); Hemoglobin 12.1 g/dl (12.0-16.0); Imm Gran Abs Auto 0.01 X10*3/uL (0.00-0.03); Imm Gran Pct Auto 0.2 % (0.0-0.4); Lymphocytes Absolute Auto 1.2 X10*3/uL (1.2-4.9); Lymphocytes Percent Auto 22.3 % (20-40); Mean Corpuscular HGB Conc 32.2 g/dl (31.0-35.0); Mean Corpuscular Hemoglobin 27.3 pg (27.0-33.0); Mean Corpuscular Volume 84.9 fL (80.0-98.0); Mean Platelet Volume 11.5 fL (9.4-12.3); Monocytes Absolute Auto 0.6 X10*3/uL (0.1-1.2); Monocytes Percent Auto 10.9 % (2-11); Neutrophils Absolute Auto 3.4 x10*3/uL (2.0-8.3); Neutrophils Percent Auto 64.5 % (45-73); Platelet Count 184 X10*3/uL (160-400); Red Blood Count 4.43 X10*6/uL (4.20-5.50); Red Cell Distribution Width 14.9 % (11.0-16.0); White Blood Count 5.3 X10*3/uL (4.8-10.8)
[2023-11-13 18:34] LABS: Alanine Aminotransferase 26 U/L (0-31); Albumin Level 4.2 g/dL (3.5-5.0); Alkaline Phosphatase 77 U/L (39-117); Anion Gap 12 (12-20); Aspartate Amino Transferase 27 U/L (5-31); Bilirubin Total 0.3 mg/dL (0.0-1.0); Blood Urea Nitrogen 21 mg/dL (9-16); C Reactive Protein 0.36 mg/dL (< or = 0.50); Calcium 9.6 mg/dL (8.4-10.2); Carbon Dioxide 29 mmol/L (22-29); Chloride 104 mmol/L (96-108); Estimated Glomerular Filt Rate 38; Glucose Random 122 mg/dL (60-115); Potassium 4.1 mmol/L (3.3-5.1); Sodium 141 mmol/L (135-145)
[2023-11-13 19:04] LABS: Erythrocyte Sedimentation Rate 56 MM/HR (0-20)
== END 2023-11-13 16:30 | disposition home or self-care (01) ==
LOC: HO.LAB 16:29
PROVIDERS: PCP Internal Medicine Geriatric Medicine; Visit Provider Student in an Organized Health Care Education/Training Program
DX: M06.9 Rheumatoid arthritis, unspecified (principal)
CPT/HCPCS: 36415; 80053; 85025; 85652; 86140

== ENCOUNTER 2023-11-16 09:07 | Outpatient (AMB) | payer OTHER, SELFPAY ==
[2023-11-16 09:17] VITALS: BP 196/88; PULSE 107; BMI 29.7
--- NOTE | 2023-11-16 09:17 | A.OFFVIS_ITS ---
Intake Vital Signs 11/16/23 09:17 Height 5 ft Weight 152 lb 1.903 oz BMI 29.7 BP 196/88 H Blood Pressure Location Lt brachial Position Sitting Pulse 107 H Intake Visit Reasons: 6 Month follow up Intake Note: Cece presents in the office as a 6 month follow up. CC: Food getting stuck in esophagus and stomach. Vomiting when she eats. She deals with mostly constipation. 3 days ago she threw up and the food was stuck in her esophagus and when it went back down she had a burning sensation. Allergies folic acid Adverse Reaction (Unknown, Verified 11/16/23 09:17) Rash on neck HPI 6 Month follow up HPI Details 58 yr old f with hx of breast cancer and xrt being seen for f/u RECAP: She had EGD for dysphagia 03/2022 she had balloon dilation to 20 mm at [facility] and [facility] with small tear noted, with esophagitis and gastritis path: inflammation at [facility] consistent with reflux changes H pylori neg 2018 (had been pos before and treated) US 2021-- fatty liver, no GB pathology GES: 13% at 4 hrs INTERIM: she has feeling of food sticking and choking for 1 month she is taking dexilant and famotidine doesn't help nausea but helps the heartburn she feels her stomach is bloated she has nausea and vomiting, no blood she has normal stool, no constipation she has a cough right now EXAM: GENERAL: The patient is well developed and nontoxic. VITAL SIGNS:see workflow HEENT: Nonicteric sclerae, PERRLA, EOMI. Oropharynx clear. Moist mucous membranes. Conjunctivae appear well perfused. No thyroid mass. CHEST: Chest wall is nontender. HEART: Regular rate and rhythm without murmurs. LUNGS: Clear to auscultation bilaterally. ABDOMEN: Soft, positive bowel sounds, tender epigastrium, no organomegaly.no flank tenderness SKIN: No rash, no excessive bruising, petechiae, or purpura. NEUROLOGIC: Cranial nerves II-XII intact without motor/sensory deficit. 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 Surgical History History of eye surgery History of breast surgery (~11/11/19) History of esophagogastroduodenoscopy (EGD) H/O tubal ligation History of lumpectomy of both breasts (~10/03/19) Family History Mother HTN (hypertension) Father Diabetes Daughter Fibromyoma Maternal Aunt Cervical cancer Social History Household Members: None Housing: Apartment Are you a primary childbirth and infant care teacher to a significant other at home: No Do you presently have visiting nurse or other home services: Yes ([facility]) Alcohol intake: never Patient Tobacco Use Status: Former Tobacco user service: No Current occupational status: unemployed Physical Exam Vital Signs: Last Vital Signs Pulse 107 H 11/16/23 09:17 BP 196/88 H 11/16/23 09:17 BMI result Body Mass Index 29.7 Assessment & Plan Assessment & Plan (1) Dysphagia: Code(s): R13.10 - Dysphagia, unspecified Plan: PLAN: 1/ EGD for further assessment and possible balloon dilation Coding Level of Care Code Est Pt Level 3 (47767) Diagnoses Dysphagia R13.10
== END 2023-11-16 09:32 | disposition home or self-care (01) ==
PROVIDERS: PCP Internal Medicine Geriatric Medicine; Visit Provider Internal Medicine Gastroenterology
DX: R13.10 Dysphagia, unspecified (principal)
CPT/HCPCS: 99213

== ENCOUNTER → 2023-11-16 09:07 | Outpatient (BNVA) | payer OTHER, SELFPAY | PROVIDERS: PCP Internal Medicine Geriatric Medicine; Visit Provider Internal Medicine Gastroenterology | DX: M06.09 Rheumatoid arthritis without rheumatoid factor, multiple sites (principal); N17.9 Acute kidney failure, unspecified; R13.10 Dysphagia, unspecified; Z79.899 Other long term (current) drug therapy | CPT/HCPCS: 99212 ==

== ENCOUNTER 2023-11-16 14:11 | Outpatient (AMB) | payer OTHER, SELFPAY ==
[2023-11-16 14:16] VITALS: BP 168/82; PULSE 104; TEMP 36.5; O2SAT 98
--- NOTE | 2023-11-16 14:16 | MHC.OFFVIS ---
Intake Vital Signs 11/16/23 14:16 Height 5 ft Weight 153 lb 14.122 oz BMI 30.0 BP 168/82 H Blood Pressure Location Rt brachial Position Sitting Pulse 104 H Pulse Source Pulse Oximeter Temp 97.7 F Pulse Oximetry (%) 98 Oxygen Delivery Method Room Air Intake Visit Reasons: RA Intake Note: Patient last seen 07/28/23 presents today for follow up and test results. C/o right sided jaw pain and swelling. Saw dentist 2 weeks ago, was given antibiotics has 2 pills left. Direct Customer Service Representative Required: No Accompanied by: Daughter Allergies folic acid Adverse Reaction (Unknown, Verified 11/16/23 14:18) Rash on neck Medication List - Last Reconciled 11/16/23 by Briana Chambers MD albuterol sulfate 90 mcg/actuation (Ventolin HFA) 90 mcg inhalation DAILY calcitriol 0.25 mcg PO DAILY calcium carbonate 500 mg PO BID cholecalciferol (vitamin D3) 50 mcg PO DAILY clonidine HCl 0.2 mg PO DAILY dexlansoprazole 60 mg PO DAILY famotidine 40 mg PO BEDTIME hydrocortisone 1% 1 appl topical NEEDED ibuprofen 600 mg PO TID lorazepam 1 tab PO DAILY PRN nystatin 1 appl topical BID quetiapine mg PO HPI HPI Comments History of Present Illness Details 58-year-old female with seropositive RA returns with her daughter for follow-up. Patient states that she continues to have intermittent joint pain and swelling her wrists, fingers, hands. She recently saw her dentist for right jaw pain was told that she had gum inflammation. She was prescribed antibiotics 2 weeks ago and she has 2 pills left. She does not believe the antibiotics helped. She will be going for an endoscopy this Thursday Previous visit: 57-year-old female with seropositive RA returns for follow-up. She was last seen by Keyla Womack last year. Patient states that she continues to have pain and swelling of her knuckles and fingers. Usually worse in the morning. She was diagnosed with gastroparesis and was tried on multiple medicines without significant improvement. She states that whenever she takes any medication she vomits it out. She is unable to keep medications down. Over the last 3-4 months she has been having a chronic cough usually dry and occasionally with sputum. She sleeps using 2 pillows. She gets short of breath with going up the stairs. Per Keyla womack: She was started on plaquenil 200mg po BID for RA. She stopped the medication because she experienced vomiting, hot flashes and numbness in her lower extremities. She reported that she felt that the plaquenil was interacting with her exemestane and that her symptoms have resolved since stopping the plaquenil. She admits to continued bilateral hand pain, swelling, and morning stiffness that lasts more then 10 minutes. She states that she feels that her hand pain is overall stable. Pain is worse with use. X ray of bilateral hands in May 2021 showed osteoarthritis. She is following with Dr Santoyo for ductal carcinonoma of both breasts. Dr Acuna for breast surgery and with GI for GERD. She has an appointment with Dr Santoyo tomorrow and Dr Acuna in December. She continues to have intermittent right knee pain, xray at last visit showed arthritis. She states that her pain is constant, present when she is at rest, walking or using the stairs. She reports lower back pain that started today. She was reaching up for a bowl and felt pain. She has not yet taken tramadol or tried supportive measures today as she has been at appointments. She denies numbness or bladder involvement. Initial history by Dr. Norwood: Patient reports pain in her hands and her wrists that has been present for approximately 2 years. Symptoms are generally worse in her right hand. States that she can experience swelling in her wrists and occasionally her fingers can lock up. States that she does not have symptoms daily, states that they come and go. Gets symptoms approximately a few times per months. Gets morning stiffness in her hands that can last a few minutes. Also feels that her hands can become numb when she first wakes up. Patient has a photo on her phone which she showed me that does demonstrate swelling in the MCP joints of her right hand. Pt has breast cancer, completed radiation therapy approximately 7 months ago and now takes an aromatase inhibitor. Patient denies Raynaud's, photosensitivity, oral or nasal ulcers, sicca symptoms, fevers. No family history of RA or SLE. 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 Surgical History History of eye surgery History of breast surgery (~11/11/19) History of esophagogastroduodenoscopy (EGD) H/O tubal ligation History of lumpectomy of both breasts (~10/03/19) Family History Mother HTN (hypertension) Father Diabetes Daughter Fibromyoma Maternal Aunt Cervical cancer Social History Household Members: None Housing: Apartment Are you a primary critical care educator to a significant other at home: No Do you presently have visiting nurse or other home services: Yes ([facility]) Alcohol intake: never Patient Tobacco Use Status: Former Tobacco user service: No Current occupational status: unemployed Review of Systems ENT Details: Right jaw pain Musc Reports arthralgias, Reports joint swelling and Reports stiffness Physical Exam Vital Signs: Last Vital Signs Temp 97.7 F 11/16/23 14:16 Pulse 104 H 11/16/23 14:16 BP 168/82 H 11/16/23 14:16 Pulse Ox 98 11/16/23 14:16 Oxygen Delivery Method Room Air 11/16/23 14:16 BMI result Body Mass Index 30.0 Const General: cooperative, healthy appearing and comfortable Nutritional Appearance: overweight Orientation/consciousness: patient oriented x3 Limitations: no limitations HEENT Head: Yes normocephalic and Yes atraumatic Mouth: moist mucous membranes Resp Effort & Inspection: normal respiratory effort and able to speak in complete sentences Auscultation: clear to auscultation bilaterally Cardio Rate: regular rate Rhythm: regular rhythm Neuro General: patient oriented x3 Extrem Other: Left wrist swelling and tenderness resolved Compression band on right wrist No active synovitis Assessment & Plan Assessment & Plan (1) Rheumatoid arthritis: Comment: -ve +++CCP dx 2020 HCQ started 11/2020. Caused GI upset and discontinued MTX 03/2023 had an allergic reaction to folic acid Code(s): M06.9 - Rheumatoid arthritis, unspecified Qualifiers: Rheumatoid arthritis location: multiple sites Rheumatoid factor presence: without rheumatoid factor Qualified Code(s): M06.09 - Rheumatoid arthritis without rheumatoid factor, multiple sites Plan: This is a 58-year-old female with seropositive rheumatoid arthritis returns for follow-up. Continues to have intermittent pain and swelling of multiple joints. Inflammatory markers remain elevated. Will need to start DMARDs. Patient could not tolerate hydroxychloroquine due to GI upset. Patient can not take methotrexate as she had an allergic reaction to folic acid. And generally oral medicines would not be prefer due to gastroparesis. Discussed risks and benefits of Enbrel. Patient agreed to proceed. Will start prior authorization for Enbrel Labs before next visit in 3 months Infectious screening: Hepatitis panel and T spot -ve 2022 (2) ALBERT (acute kidney injury): Code(s): N17.9 - Acute kidney failure, unspecified Plan: When labs were collected a few days ago, patient was having flu-like symptoms and was a little dehydrated. Will repeat in a few weeks (3) High risk medication use: Code(s): Z79.899 - Other halfway (current) drug therapy Plan: Discussed risks and benefits of TNF inhibitors including increased risk of infection, injection site reactions, reactivation of TB and others. Patient agreed to proceed. Plan I spent 29 minutes reviewing patient's chart, evaluating patient, ordering diagnostic workup, counseling patient and documenting in the chart Orders: Orders Comprehensive Met. Panel 1 Month N28.9 - Disorder of kidney and ureter, unspecified Erythrocyte Sedimentation Rate 3 Months M06.9 - Rheumatoid arthritis, unspecified Complete Blood Count Auto Diff 3 Months M06.9 - Rheumatoid arthritis, unspecified Comprehensive Met. Panel 3 Months M06.9 - Rheumatoid arthritis, unspecified C Reactive Protein 3 Months M06.9 - Rheumatoid arthritis, unspecified Coding Level of Care Code Est Pt Level 4 (66353) Diagnoses Rheumatoid arthritis of multiple sites with negative rheumatoid factor M06.09 Rheumatoid arthritis location: multiple sites Rheumatoid factor presence: without rheumatoid factor ALBERT (acute kidney injury) N17.9 High risk medication use Z79.899
== END 2023-11-16 14:57 | disposition home or self-care (01) ==
PROVIDERS: PCP Internal Medicine Geriatric Medicine; Visit Provider Student in an Organized Health Care Education/Training Program
DX: M06.09 Rheumatoid arthritis without rheumatoid factor, multiple sites (principal); N17.9 Acute kidney failure, unspecified; Z79.899 Other long term (current) drug therapy
CPT/HCPCS: 99214

== ENCOUNTER 2023-11-19 10:46 | Day surgery (SDC) | payer OTHER, SELFPAY ==
--- NOTE | 2023-11-18 10:52 | HO.ANESPROP2 ---
Documented by User: Savana Reveles NP 11/18/23 10:53 HPI - Anesthesia Eval Consult details Narrative: 58yo F for Upper Endoscopy with Balloon Dilitation PMFSH Active Problems Active Problems: All Active Problems (Updated 11/16/23 @ 15:47 by Briana Chambers MD) High risk medication use (Acute) ALBERT (acute kidney injury) (Acute) Pulmonary nodules (Acute) Radiation fibrosis of lung (Acute) Allergic rhinitis (Acute) Bronchitis (Acute) Chronic cough (Acute) Cutaneous fungal infection (Acute) Swelling of right hand (Acute) GERD (gastroesophageal reflux disease) (Acute) Hepatic steatosis (Acute) Rheumatoid arthritis (Acute) Left breast lump (Acute) Right knee pain (Acute) Dysphagia (Acute) H. 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 Family History Family History Mother HTN (hypertension) Father Diabetes Daughter Fibromyoma Maternal Aunt Cervical cancer Surgical History Surgical History History of eye surgery History of breast surgery (~11/11/19) History of esophagogastroduodenoscopy (EGD) H/O tubal ligation History of lumpectomy of both breasts (~10/03/19) History of Problems with Anesthesia: No Social History Social History Household Members: None Housing: Apartment Are you a primary animal care specialist to a significant other at home: No Do you presently have visiting nurse or other home services: Yes ([facility]) Alcohol intake: never Patient Tobacco Use Status: Former Tobacco user Are you DNR?: No Advance Directives: No Advance Directives Information Provided: Yes Recently lost weight without trying: No Nutrition Risks: No Nutritional Risk service: No Current occupational status: unemployed Meds Allergies Allergy/AdvReac Type Severity Reaction Status Date / Time folic acid AdvReac Unknown Rash on Verified 11/16/23 14:18 neck Home Medications Medication Instructions Recorded Confirmed Last Taken Type clonidine HCl 0.2 mg tablet 0.2 mg PO DAILY 07/31/20 09/22/23 Unknown History hydrocortisone 1 % topical cream 1 applic topical NEEDED 07/31/20 09/22/23 Unknown History ibuprofen 600 mg tablet 600 mg PO TID 07/31/20 09/22/23 Unknown History lorazepam 0.5 mg tablet 1 tab PO DAILY PRN Anxiety 05/03/21 09/22/23 Unknown History albuterol sulfate 90 mcg/actuation 90 mcg inhalation DAILY 01/02/23 09/22/23 Unknown History aerosol inhaler (Ventolin HFA) calcium carbonate 500 mg calcium 500 mg PO BID 11/16/23 Unknown History (1,250 mg) tablet cholecalciferol (vitamin D3) 50 50 mcg PO DAILY 11/16/23 Unknown History mcg (2,000 unit) capsule quetiapine 50 mg tablet mg PO 11/16/23 Unknown History Exam Pertinent Lab Results Pertinent Lab Results: Laboratory Tests 11/13/23 16:35 WBC 5.3 Hgb 12.1 Hct 37.6 Plt Count 184 Sodium 141 Potassium 4.1 Chloride 104 Carbon Dioxide 29 BUN 21 H Creatinine 1.43 H Assessment and Plan Assessment Anesthesia Assessment: Chart Reviewed Final Anesthetic Review History of Problems with Anesthesia: No Documented by User: Jeaneth Tomlinson MD 11/19/23 13:27 HPI - Anesthesia Eval Consult details Narrative: 58yo F for Upper Endoscopy with Balloon Dilatation PMFSH Active Problems Active Problems: All Active Problems (Updated 11/19/23 @ 13:10 by Jeaneth Tomlinson MD) High risk medication use (Acute) ALBERT (acute kidney injury) (Acute) BUN/Cr 11/13/23 21/1.43 Pulmonary nodules (Acute) Radiation fibrosis of lung (Acute) Allergic rhinitis (Acute) Bronchitis (Acute) Chronic cough (Acute) Cutaneous fungal infection (Acute) Swelling of right hand (Acute) GERD (gastroesophageal reflux disease) (Acute) Hepatic steatosis (Acute) Rheumatoid arthritis (Acute) Left breast lump (Acute) Right knee pain (Acute) Dysphagia (Acute) H. 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 Family History Family History Mother HTN (hypertension) Father Diabetes Daughter Fibromyoma Maternal Aunt Cervical cancer Family history of problems with anesthesia: No Surgical History Surgical History History of eye surgery History of breast surgery (~11/11/19) History of esophagogastroduodenoscopy (EGD) H/O tubal ligation History of lumpectomy of both breasts (~10/03/19) History of Problems with Anesthesia: No Social History Social History Household Members: None Housing: Apartment Are you a primary animal care specialist to a significant other at home: No Do you presently have visiting nurse or other home services: Yes ([facility]) Alcohol intake: never Patient Tobacco Use Status: Former Tobacco user Are you DNR?: No Advance Directives: No Advance Directives Information Provided: Yes Recently lost weight without trying: No Nutrition Risks: No Nutritional Risk service: No Current occupational status: unemployed Meds Allergies Allergy/AdvReac Type Severity Reaction Status Date / Time folic acid AdvReac Unknown Rash on Verified 11/16/23 14:18 neck Home Medications Medication Instructions Recorded Confirmed Last Taken Type clonidine HCl 0.2 mg tablet 0.2 mg PO DAILY 07/31/20 09/22/23 Unknown History hydrocortisone 1 % topical cream 1 applic topical NEEDED 07/31/20 09/22/23 Unknown History ibuprofen 600 mg tablet 600 mg PO TID 07/31/20 09/22/23 Unknown History lorazepam 0.5 mg tablet 1 tab PO DAILY PRN Anxiety 05/03/21 09/22/23 Unknown History albuterol sulfate 90 mcg/actuation 90 mcg inhalation DAILY 01/02/23 09/22/23 Unknown History aerosol inhaler (Ventolin HFA) calcium carbonate 500 mg calcium 500 mg PO BID 11/16/23 Unknown History (1,250 mg) tablet cholecalciferol (vitamin D3) 50 50 mcg PO DAILY 11/16/23 Unknown History mcg (2,000 unit) capsule quetiapine 50 mg tablet mg PO 11/16/23 Unknown History Exam Height,Weight and Vital Signs: Height 4 ft 10 in Weight 69.626 kg Vital Signs Temp Pulse Resp BP Pulse Ox O2 Del Method 11/19/23 11:06 98 F 76 16 156/69 H 96 Room Air Airway Mallampati Class: III TM Dist: >3cm Neck ROM: Full Partial: Lower Loose/Missing/Broken Teeth: Yes (Partial dentures bottom front. Denies broken, loose, missing teeth) Heart: RRR Lungs: CTAB Assessment and Plan Assessment Anesthesia Assessment: Anesthesia Plan Discussed and Chart Reviewed Final Anesthetic Review Family History of Problems with Anesthesia: No History of Problems with Anesthesia: No NPO: Yes ASA Class: III Final Preanesthetic Review: No Changes in Pt Med Stat, Meds/Allgs Chart Reviewed, Consent Obtained/Reviewed and Anes Risks/Benef Reviewed Patient Risk: Intermediate Procedure Risk: Low Assessment/Block/Sedation in SS: Assess/Block/Sedation-SS Anesthetic Plan Anesthetic Plan: MAC: and TIVA Disposition: Standard PACU
[2023-11-19 11:06] VITALS: BP 156/69; PULSE 76; RESP 16; TEMP 36.6; O2SAT 96; BMI 32.1
[2023-11-19] MEDS: Lactated Ringers 1,000 ML 100 ML IVCONT (11:31)
--- NOTE | 2023-11-19 12:17 | MHC.SHP ---
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 Esophagitis with gastritis Fatty liver History of ITP Hypercholesteremia IBS (irritable bowel syndrome) Osteoporosis Prediabetes) History of Previous Operations: Relevant previous surgery/procedure and date(s) (H/O tubal ligation History of breast surgery (~11/11/19) History of esophagogastroduodenoscopy (EGD) History of lumpectomy of both breasts (~10/03/19)) Allergies: Allergies Allergy/AdvReac Type Severity Reaction Status Date / Time folic acid AdvReac Unknown Rash on Verified 11/16/23 14:18 neck Review of Systems Sugical H&P ROS: Negative: Constitution, Cardiovascular, Respiratory, Neurological, Psychiatric, Hem-Onc, Allergic/Immunologic, Gastrointestinal, Genitourinary, Musculoskeletal, Integumentary, Endocrine and Eyes/Ears/Nose/Throat Exam Surgical H&P Exam: Normal: HEENT, Normal: Heart, Normal: Lungs, Normal: Extremities, Normal: Abdomen, Normal: Skin and Normal: Neurological Plan Diagnosis/Plan: Unchanged I have reviewed the history and physical and performed a pertinent physical examination on my patient. No changes have occurred unless specified. Time Spent With Patient Time: Total time managing care of this patient today ____ minutes.
--- NOTE | 2023-11-19 13:07 | W.PM.OPN ---
Operative Note Operative Note Date of Service: 11/19/23 Narrative: Procedure Description: EGD Indication: dysphagia Anesthesia: MAC FLEXIBLE TRANSORAL UPPER GASTROINTESTINAL ENDOSCOPY UPPER ENDOSCOPY Consent: Indications for the procedure and potential complications of bleeding, perforation, reaction to medications and missed diagnosis were discussed with the patient and informed consent was obtained. Instrument: Olympus GIF H 190 J mid size upper endoscope Monitoring: Vital signs and clinical assessment, continuous EKG monitoring, Pulse oximetry, Carbon Dioxide monitoring and blood pressure monitoring were done throughout the procedure. Procedure: The patient was placed in the left lateral decubitis position and pre-procedure medications were administered and a bite block was placed. The endoscope was inserted into the mouth and advanced under direct vision to the third part of duodenum. A careful inspection was made as the upper endoscope was withdrawn including a retroflexed examination of the proximal stomach; Findings and interventions are described below. Findings: Larynx:normal Esophagus: GE junction at 32 cm, diaphragm hiatus at 34 cm, Schatzki ring noted. Balloon dilation done to 20 mm at lower esophagus and upper esophagus with small tear noted at GEJ junction. Stomach: Normal mucosa. Grade 3 flap valve on retroflexed examination of the cardia. Duodenum: Normal bulb and descending duodenum, Intervention: balloon dilation Impression/Findings: patulous LES schatzki ring small hiatal hernia PLAN: cont with dexilant, if ongoing sx then change PPI if despite that sx persist then manometry or CR reflux precautions
[2023-11-19 13:42] VITALS: BP 145/76; PULSE 82; RESP 16; TEMP 36.2; O2SAT 97
[2023-11-19 13:57] VITALS: BP 152/71; PULSE 88; RESP 16; O2SAT 97
[2023-11-19 14:12] VITALS: BP 132/91; PULSE 72; RESP 16; TEMP 36.3; O2SAT 96
== END 2023-11-19 15:10 | disposition home or self-care (01) ==
PROVIDERS: PCP Internal Medicine Geriatric Medicine; Visit Provider Internal Medicine Gastroenterology
PROC: (CPT 43249; principal; 2023-11-19 13:20)
DX: R13.10 Dysphagia, unspecified (principal); K22.2 Esophageal obstruction; K22.4 Dyskinesia of esophagus; K44.9 Diaphragmatic hernia without obstruction or gangrene; K20.80 Other esophagitis without bleeding; K29.60 Other gastritis without bleeding; J70.1 Chronic and other pulmonary manifestations due to radiation; R91.8 Other nonspecific abnormal finding of lung field; R73.03 Prediabetes; Z85.3 Personal history of malignant neoplasm of breast; Z92.3 Personal history of irradiation; Z79.1 Long term (current) use of non-steroidal anti-inflammatories (NSAID); Z79.899 Other long term (current) drug therapy; Z98.890 Other specified postprocedural states; Z87.891 Personal history of nicotine dependence; Z88.8 Allergy status to other drugs, medicaments and biological substances
CPT/HCPCS: 43249; C1726; J1596; J2704

== ENCOUNTER → 2023-11-19 10:46 | Outpatient (BNV) | payer OTHER, SELFPAY | PROVIDERS: PCP Internal Medicine Geriatric Medicine; Visit Provider Internal Medicine Gastroenterology | DX: K22.2 Esophageal obstruction (principal); K22.4 Dyskinesia of esophagus; K44.9 Diaphragmatic hernia without obstruction or gangrene | CPT/HCPCS: 43249 ==

== ENCOUNTER 2023-12-12 10:17 | Outpatient (REF) | payer OTHER, SELFPAY ==
[2023-12-12 10:33] LABS: MANUAL DIFF FLAG NO
[2023-12-12 11:23] LABS: Basophils Percent Auto 0.5 % (0-2); Eosinophils Absolute Auto 0.2 X10*3/uL (0.0-0.4); Eosinophils Percent Auto 3.9 % (0-4); Hematocrit 36.6 % (37.0-47.0); Hemoglobin 11.7 g/dl (12.0-16.0); Imm Gran Abs Auto 0.01 X10*3/uL (0.00-0.03); Imm Gran Pct Auto 0.3 % (0.0-0.4); Lymphocytes Absolute Auto 0.9 X10*3/uL (1.2-4.9); Lymphocytes Percent Auto 23.7 % (20-40); Mean Corpuscular Hemoglobin 27.1 pg (27.0-33.0); Mean Corpuscular Volume 84.9 fL (80.0-98.0); Mean Platelet Volume 11.5 fL (9.4-12.3); Monocytes Absolute Auto 0.4 X10*3/uL (0.1-1.2); Monocytes Percent Auto 9.9 % (2-11); Neutrophils Absolute Auto 2.4 x10*3/uL (2.0-8.3); Neutrophils Percent Auto 61.7 % (45-73); Platelet Count 156 X10*3/uL (160-400); Red Blood Count 4.31 X10*6/uL (4.20-5.50); Red Cell Distribution Width 14.6 % (11.0-16.0); White Blood Count 3.8 X10*3/uL (4.8-10.8)
[2023-12-12 11:32] LABS: Estimated Average Glucose 128 mg/dL; Hemoglobin A1c % 6.1 % (<6.0)
[2023-12-12 11:49] LABS: Alanine Aminotransferase 24 U/L (0-31); Alkaline Phosphatase 66 U/L (39-117); Anion Gap 12 (12-20); Aspartate Amino Transferase 24 U/L (5-31); Bilirubin Total 0.4 mg/dL (0.0-1.0); Blood Urea Nitrogen 18 mg/dL (9-16); Calcium 9.7 mg/dL (8.4-10.2); Carbon Dioxide 29 mmol/L (22-29); Chloride 106 mmol/L (96-108); Estimated Glomerular Filt Rate > 60; Glucose Random 95 mg/dL (60-115); Potassium 4.2 mmol/L (3.3-5.1); Sodium 143 mmol/L (135-145); Total Protein 7.6 g/dL (6.5-8.0)
== END 2023-12-12 10:18 | disposition home or self-care (01) ==
LOC: HO.LAB 10:17
PROVIDERS: PCP Internal Medicine Geriatric Medicine; Visit Provider Internal Medicine Geriatric Medicine
DX: I10 Essential (primary) hypertension (principal); M06.9 Rheumatoid arthritis, unspecified; R73.03 Prediabetes
CPT/HCPCS: 36415; 80053; 83036; 85025

== ENCOUNTER 2024-01-18 08:16 | Outpatient (AMB) | payer OTHER, SELFPAY ==
[2024-01-18 08:18] VITALS: BP 168/75; PULSE 85; BMI 32.3
--- NOTE | 2024-01-18 08:18 | A.OFFVIS_ITS ---
Vital Signs 01/18/24 08:18 Height 4 ft 10 in Weight 154 lb 5.177 oz BMI 32.3 BP 168/75 H Blood Pressure Location Lt brachial Position Sitting Pulse 85 Intake Visit Reasons: s/p egd Intake Note: Cece presents in the office as a follow up EGD. CC: She is having pains in her epigastric region and states that she is having a lot of bloating and gas. Airport Tower Controller Required: No Allergies folic acid Adverse Reaction (Unknown, Verified 01/18/24 08:20) Rash on neck HPI HPI s/p egd: Details: 58 yr old f with hx of breast cancer and xrt being seen for f/u RECAP: She had EGD for dysphagia 03/2022 she had balloon dilation to 20 mm at UES and LES with small tear noted, with esophagitis and gastritis path: inflammation at GEJ consistent with reflux changes H pylori neg 2018 (had been pos before and treated) US 2021-- fatty liver, no GB pathology GES: 13% at 4 hrs EGD: 11/19/23--dilation 20 mm, small tear, schatzki ring INTERIM: no more choking or food sticking but has mild epigastric pain and some nausea and bloating she has a lot of gas she has normal stool, no constipation she is still taking dexilant and famotidine she tried other PPI but feels dexilant is the best one EXAM: GENERAL: The patient is well developed and nontoxic. VITAL SIGNS:see workflow HEENT: Nonicteric sclerae, PERRLA, EOMI. Oropharynx clear. Moist mucous membranes. Conjunctivae appear well perfused. No thyroid mass. CHEST: Chest wall is nontender. HEART: Regular rate and rhythm without murmurs. LUNGS: Clear to auscultation bilaterally. ABDOMEN: Soft, positive bowel sounds, tender epigastrium, no organomegaly.no flank tenderness SKIN: No rash, no excessive bruising, petechiae, or purpura. NEUROLOGIC: Cranial nerves II-XII intact without motor/sensory deficit. 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 Surgical History History of eye surgery History of breast surgery (~11/11/19) History of esophagogastroduodenoscopy (EGD) H/O tubal ligation History of lumpectomy of both breasts (~10/03/19) Family History Mother HTN (hypertension) Father Diabetes Daughter Fibromyoma Maternal Aunt Cervical cancer Social History Household Members: None Housing: Apartment Are you a primary care associate to a significant other at home: No Do you presently have visiting nurse or other home services: Yes ([facility]) Alcohol intake: never Patient Tobacco Use Status: Former Tobacco user service: No Current occupational status: unemployed Physical Exam Vital Signs: Last Vital Signs Pulse 85 01/18/24 08:18 BP 168/75 H 01/18/24 08:18 BMI result Body Mass Index 32.3 Assessment & Plan Assessment & Plan (1) Dysphagia: Code(s): R13.10 - Dysphagia, unspecified Category: Medical Plan: A/P: 1/ Epigastric pain with pos GES< and dysphagia--dysphagia improved with dilation, epigastric pain ongoing prob dysfunctional dyspepsia 2/ NAFLD, normal LFT PLAN: 1/ trial of TCA< low dose and see if helps, she also has poor sleep 2/ cont with dexilant and famotidine meantime, take MV Medications: New nortriptyline 10 mg PO BEDTIME 30 caps 2RF Coding Level of Care Code Est Pt Level 3 (25008) Diagnoses Dysphagia R13.10
== END 2024-01-18 08:52 | disposition home or self-care (01) ==
PROVIDERS: PCP Internal Medicine Geriatric Medicine; Visit Provider Internal Medicine Gastroenterology
DX: R13.10 Dysphagia, unspecified (principal)
CPT/HCPCS: 99213

== ENCOUNTER → 2024-01-18 08:16 | Outpatient (BNVA) | payer OTHER, SELFPAY | PROVIDERS: PCP Internal Medicine Geriatric Medicine; Visit Provider Internal Medicine Gastroenterology | DX: R13.10 Dysphagia, unspecified (principal); Z98.890 Other specified postprocedural states | CPT/HCPCS: 99212 ==

== ENCOUNTER 2024-02-19 08:19 | Outpatient (REF) | payer OTHER, SELFPAY ==
--- NOTE | ~2024-02-19 | MM_ITS ---
EXAMINATION: BONE DENSITOMETRY CLINICAL INDICATION: Osteoporosis. COMPARISON: Previous BD dated 11/08/2019 and baseline BD dated 11/27/2009. TECHNIQUE: Using a Partly DXA System (software version: 13.1) manufactured by [employer], dual-energy x-ray absorptiometry was performed of the lumbar spine and left hip. The images are of good technical quality. Summary results are attached. FINDINGS: LEFT FEMUR, NECK: Current: BMD 0.666 g/cm2, Z-score -1.6, T-score -2.7, osteoporosis. Prior: BMD 0.616 g/cm2. Baseline: BMD 0.628 g/cm2. LEFT FEMUR, TOTAL: Current: BMD 0.801 g/cm2, Z-score -0.9, T-score -1.6, osteopenia, 0.6% increase from previous, 0.7% decrease from baseline (<5% change is not significant). Prior: BMD 0.796 g/cm2. Baseline: BMD 0.807 g/cm2. AP SPINE L1-L4: Current: BMD 0.852 g/cm2, Z-score -1.8, T-score -2.7, osteoporosis, 0.6% increase from previous, 3.0% increase from baseline (<5% change is not significant). Prior: BMD 0.847 g/cm2. Baseline: BMD 0.827 g/cm2. IDENTIFIED RISK FACTORS: Early menopause, secondary osteoporosis, height loss, osteoporosis, rheumatoid arthritis. HISTORY OF FRACTURE: None listed. MEDICATIONS: Vitamin D. MM/XR DEXA axial skeleton IMPRESSION: 1. DIAGNOSIS: Osteoporosis based on the lowest T-score value of -2.7 in the lumbar spine and femoral neck applying World Health Organization criteria. 2. 10-YEAR FRACTURE RISK PREDICTION, FRAX: According to the guidelines, FRAX calculation should only be performed on patients in the osteopenia bone density category. Therefore, FRAX was not performed on this patient. 3. Treatment Recommendations: NOF guidelines recommend consideration for treatment in postmenopausal women and men age 50 and older presenting with the following: -A hip or vertebral (clinical or morphometric) fracture. -T-score less than or equal to -2.5 at the femoral neck or spine after appropriate evaluation to exclude secondary causes. -Low bone mass at the hip or spine and a 10-year fracture probability by FRAX of greater than or equal to 3% for hip fracture or greater than or equal to 20% for major osteoporotic fracture based on the [place] adapted WHO algorithm. 4. Other Recommendations: All treatment decisions require clinical judgment and consideration of individual patient factors, including patient preferences, comorbidities, previous drug use, risk factors not captured in the FRAX model (e.g. frailty, falls, vitamin D deficiency, increased bone turnover, interval significant decline in bone density) and possible under or overestimation of fracture risk by FRAX. Additional medical evaluation for secondary cause of low bone mineral density may be appropriate. FUTURE SCAN RECOMMENDATION: People with diagnosed cases of osteoporosis or at high risk for fracture should have regular bone mineral density tests. For patients eligible for Medicare, routine testing is allowed once every 2 years. The testing frequency can be increased to one year for patients who have rapidly progressing disease, those who are receiving or discontinuing medical therapy to restore bone mass, or have additional risk factors.
== END 2024-02-19 08:20 | disposition home or self-care (01) ==
LOC: HO.MAMMO 08:19
PROVIDERS: PCP Internal Medicine Geriatric Medicine; Visit Provider Internal Medicine Medical Oncology
DX: M81.0 Age-related osteoporosis without current pathological fracture (principal); M85.80 Other specified disorders of bone density and structure, unspecified site
CPT/HCPCS: 77080

== ENCOUNTER 2024-03-22 09:36 | Outpatient (AMB) | payer OTHER, SELFPAY ==
--- NOTE | 2024-03-22 09:58 | A.OFFVIS_ITS ---
Vital Signs 3 03/22/24 10:02 Height 4 ft 10 in Weight 155 lb BMI 32.4 Intake Visit Reasons: Breast exam, 6 month follow up Intake Note: Patient is seen in office for 6 month follow up visit, breast exam. Patient c/o: reports feels mass right axilla and it is more noticeable when sitting and standing, reports pain right axilla, reports no redness or changes in the skin. 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: Wicker Worker Services: Director Medical Safety Present Director Medical Safety Name: Tamar Information Interpreted: non-clinical & clinical Accompanied by: Self / Same As Patient Allergies folic acid Adverse Reaction (Unknown, Verified 03/22/24 10:13) Rash on neck Medication List - Last Reconciled 03/22/24 by Phillip Acuna MD albuterol sulfate 90 mcg/actuation (Ventolin HFA) 90 mcg inhalation DAILY calcitriol 0.25 mcg PO DAILY calcium carbonate 500 mg PO BID cholecalciferol (vitamin D3) 50 mcg PO DAILY clonidine HCl 0.2 mg PO DAILY dexlansoprazole 60 mg PO DAILY famotidine 40 mg PO BEDTIME hydrocortisone 1% 1 appl topical NEEDED ibuprofen 600 mg PO TID lorazepam 1 tab PO DAILY PRN nystatin 1 appl topical BID quetiapine 50 mg PO DIRECTED HPI Comments Details: Cece Metz is a 58 year old female patient of Dr. Crowell returning for a follow up breast examination following surgery for DCIS in bilateral breasts on 10/03/2019. Margins in the right side were felt to be close therefore a wider excision was performed on 11/11/2019 with no additional DCIS identified. She was initially placed on Tamoxifen by Dr. Santoyo but later changed to exemestane and seen by [facility] at [facility]. She completed radiation therapy 02/21/2020.? She continues to report bilateral breast pain especially on the right side the upper outer quadrant. She notes some swelling in the upper outer portion of the right breast into the axilla with pain. She continues to follow Dr. Santoyo but is not currently on any oral antiestrogen medication. Most recent mammogram dated 11/05/2023 revealed no mammographic evidence of malignancy (BI-RADS 2). 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 Surgical History History of eye surgery History of breast surgery (~11/11/19) History of esophagogastroduodenoscopy (EGD) H/O tubal ligation History of lumpectomy of both breasts (~10/03/19) Family History Mother HTN (hypertension) Father Diabetes Daughter Fibromyoma Maternal Aunt Cervical cancer Social History Household Members: None Housing: Apartment Are you a primary childcare center administrator to a significant other at home: No Do you presently have visiting nurse or other home services: Yes ([facility]) Alcohol intake: never Patient Tobacco Use Status: Former Tobacco user service: No Current occupational status: unemployed Review of Systems Const Denies chills, Denies fever(s) and Denies poor appetite Card Denies chest pain, Denies rapid heart rate, Denies palpitations and Denies slow heart rate Resp Denies chest congestion, Denies cough, Denies pain on inspiration and Denies wheezing Denies nipple discharge Musc Denies back pain, Reports arthralgias, Denies joint swelling and Denies numbness Skin/Breast Reports as per HPI, Reports breast pain, Denies change in pigmentation, Denies nipple discharge, Denies erythema and Denies rash Neuro Denies numbness Endo Denies palpitations Woodrow/Lymph Denies lymphadenopathy Aller/Immun Denies wheezing Physical Exam Vital Signs: BMI result Body Mass Index 32.4 Const General: comfortable and no acute distress Nutritional Appearance: well nourished Orientation/consciousness: patient oriented x3 Limitations: no limitations HEENT Head: Yes normocephalic and Yes atraumatic Chest Other: Right breast with volume loss specially in the upper outer quadrant with hollows from the prior surgery. No discrete masses appreciated within this area or in the remaining breast tissue. Skin retraction essentially unchanged from prior examinations. No enlarged lymph nodes, palpable mass, or new skin changes appreciated. No nipple discharge. Left breast with post radiation change but well-healed scar and no palpable mass, skin change, nipple discharge or enlarged lymph nodes. Chest/axillae images: 2 1. 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 She subsequent underwent radiation therapy. Examination reveals residual post therapy changes and volume loss right breast but no suspicious findings in either breast. There is area of swelling in the right axilla but no palpable mass, possibly lymphedema. Her recent mammogram of 11/05/2023 revealed no mammographic evidence of malignancy (BI-RADS 2). I recommended a follow-up examination in 6 months, sooner p.r.n.. I have requested an ultrasound of the axilla to better evaluate the area of swelling. 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
[2024-03-22 10:02] VITALS: BMI 32.4
== END 2024-03-22 10:22 | disposition home or self-care (01) ==
PROVIDERS: PCP Internal Medicine Geriatric Medicine; Visit Provider Surgery
DX: I88.9 Nonspecific lymphadenitis, unspecified (principal); D05.11 Intraductal carcinoma in situ of right breast; D05.12 Intraductal carcinoma in situ of left breast
CPT/HCPCS: 99213

== ENCOUNTER → 2024-03-22 09:36 | Outpatient (BNVA) | payer OTHER, SELFPAY | PROVIDERS: PCP Internal Medicine Geriatric Medicine; Visit Provider Surgery | DX: D05.11 Intraductal carcinoma in situ of right breast (principal); D05.12 Intraductal carcinoma in situ of left breast; I88.9 Nonspecific lymphadenitis, unspecified | CPT/HCPCS: 99212 ==

== ENCOUNTER 2024-03-23 11:15 | Outpatient (REF) | payer OTHER, SELFPAY ==
[2024-03-23 14:02] LABS: Anion Gap 11 (12-20); Blood Urea Nitrogen 18 mg/dL (9-16); Calcium 9.8 mg/dL (8.4-10.2); Carbon Dioxide 30 mmol/L (22-29); Chloride 103 mmol/L (96-108); Estimated Glomerular Filt Rate > 60; Glucose Random 106 mg/dL (60-115); Potassium 4.2 mmol/L (3.3-5.1); Sodium 140 mmol/L (135-145)
== END 2024-03-23 11:16 | disposition home or self-care (01) ==
LOC: HO.HHCL 11:15
PROVIDERS: Visit Provider Internal Medicine Geriatric Medicine
DX: I10 Essential (primary) hypertension (principal); G89.4 Chronic pain syndrome
CPT/HCPCS: 36415; 80048

== ENCOUNTER 2024-04-13 13:37 | Outpatient (REF) | payer OTHER, SELFPAY ==
--- NOTE | ~2024-04-13 | US_ITS ---
EXAMINATION: MM DIAGNOSTIC DIGITAL BREAST TOMOSYNTHESIS, RIGHT US BREAST LIMITED, RIGHT MAMMOGRAPHY: CLINICAL INFORMATION: Patient complaining of palpable fullness in the lateral upper right breast. Patient has history of bilateral lumpectomies for bilateral DCIS. On the right breast, most recent surgery was on 10/03/2019. COMPARISON: Mammography: 11/05/2023, 10/28/2022, 10/24/2021, 03/23/2021, 10/03/2019, 06/01/2019 TECHNIQUE: Digital right breast tomosynthesis is performed in both the craniocaudal and mediolateral oblique views along with computer-aided detection (CAD). Synthesized 2D images are generated from the tomosynthesis. FINDINGS: There are scattered areas of fibroglandular density (ACR BI-RADS breast composition Category b). There is similar scarring in the upper outer right breast, and axilla from prior lumpectomy with axillary dissection. The overall parenchymal and trabecular pattern is stable from prior exams, with similar mild skin thickening and superolateral retractile scarring. No evidence of recurrent disease. No adenopathy. No suspicious masses or suspicious calcifications. No mammographic abnormality evident in the upper outer right breast otherwise to explain palpable fullness. ULTRASOUND: CLINICAL INFORMATION: As above. COMPARISON: None contributory. TECHNIQUE: Targeted sonographic right breast evaluation was performed using a high frequency linear transducer. Attention was given to the upper outer quadrant in the region of palpable fullness. Selected archived documentation. FINDINGS: RIGHT BREAST: There is no mass, abnormal shadowing, abnormal lymphadenopathy, cystic abnormality, or other sonographic abnormality in the upper outer right breast. Only normal subcutaneous fat is evident. There is no sonographic abnormality in the region of palpable fullness. US/US breast RT limited mamm only IMPRESSION: There is no findings suspicious for malignancy in the right breast. There are stable post therapeutic changes as described, without evidence of recurrence of disease. Region of palpable fullness in the upper outer right breast shows no mammographic or sonographic abnormality or correlate. Only normal subcutaneous fat is seen in this region. Recommend clinical management. Otherwise, recommend resuming routine annual screening mammography. OVERALL ASSESSMENT: Mammography: BI-RADS 2 - Benign Findings Ultrasound: BI-RADS 2 - Benign Findings RECOMMENDATION: 1. Patient should be managed based on the clinical impression. 2. Otherwise, routine annual screening mammography. This patient's information was entered into a reminder system with a target due date for their next mammogram.
== END 2024-04-13 13:38 | disposition home or self-care (01) ==
LOC: HO.MAMMO 13:37
PROVIDERS: PCP Internal Medicine Geriatric Medicine; Visit Provider Surgery
DX: D05.11 Intraductal carcinoma in situ of right breast (principal); D05.12 Intraductal carcinoma in situ of left breast; I88.9 Nonspecific lymphadenitis, unspecified
CPT/HCPCS: 76642; 77061; 77065

== ENCOUNTER → 2024-04-13 14:00 | Outpatient (BNV) | payer OTHER, SELFPAY | PROVIDERS: PCP Internal Medicine Geriatric Medicine; Visit Provider Radiology Diagnostic Radiology | DX: N63.11 Unspecified lump in the right breast, upper outer quadrant (principal) | CPT/HCPCS: 76642; 77065; G0279 ==

== ENCOUNTER 2024-04-28 07:48 | Outpatient (REF) | payer OTHER, SELFPAY ==
--- NOTE | ~2024-04-28 | CT_ITS ---
EXAMINATION: CT CHEST WITHOUT CONTRAST CLINICAL INFORMATION: Follow up pulmonary nodules. COMPARISON: Chest CT dated 02/25/2023. TECHNIQUE: Multidetector volumetric CT imaging of the chest was done. Axial MIP volume rendering provided. Sagittal and coronal reformatted images were obtained. This CT examination was performed using dose optimization techniques as appropriate, variously including the following: *Automated exposure control *Adjustment of mA and/or kV according to patient size (this includes techniques or standardized protocols for targeted exams where dose is matched to indication/reason for exam; i.e. extremities or head) *Use of iterative reconstruction technique DLP: 141 mGy-cm FINDINGS: MOTOR TESTER: The lungs are symmetrically well expanded and grossly clear. LUNGS: Peripherally within the right upper lobe (5:122, 131 and 142), there are 3 mm, 2 mm and 3 mm noncalcified nodules. Within the lateral segment of the right middle lobe (5:256), a benign, calcified granuloma is seen. Peripherally within the right middle lobe (5:270 and 283), there are 2 mm and 3 mm noncalcified nodules. At the posterior left apex (5:76), a 2 mm noncalcified subpleural nodule is seen. There is a 3 mm benign fissural lymph node abutting the upper major fissure (5:121). A benign, calcified granuloma is seen within the anterior segment of the left upper lobe (5:149). A 3 mm benign pleural-based lymph node is seen anterolaterally within the left upper lobe (5:177). Within the superior segment of the left upper lobe (5:220), a 3 mm noncalcified subpleural nodule is seen. There is a benign, calcified granuloma in the lateral basal segment of the left lower lobe (5:250). A further 2 mm noncalcified nodule is seen peripherally within the lateral basal segment of the left upper lobe. These nodules are all stable from 02/25/2023. No new nodule is seen. There is no mass, infiltrate or groundglass opacity. No generalized increase is seen in peripheral interlobular septal markings. No bleb or bullous formation is seen. There is no small airway thickening. No bronchiectasis is seen. The central airways appear patent. MEDIASTINUM: The thyroid is unremarkable. There is no thoracic aortic aneurysm. There are mild atherosclerotic calcifications of the great vessel origins and thoracic aorta. No mediastinal or hilar lymphadenopathy is seen. CORONARY ARTERY CALCIFICATION: Mild. PLEURA: There is no pleural effusion. No pleural mass or thickening. AXILLA: No lymphadenopathy. UPPER ABDOMEN: Unremarkable. OSSEOUS STRUCTURES: There is multi-level thoracolumbar spondylosis. No acute or aggressive osseous finding is noted. CT/CT chest wo IV con IMPRESSION: 1. There are multiple small nonspecific, noncalcified and calcified bilateral lung nodules, as detailed. The largest noncalcified nodules measure 3 mm. These are unchanged from 02/25/2023. According to the UPDATED 2017 Fleischner Society recommendations, the advised follow-up imaging for solid nodules < 6 mm is: LOW RISK PATIENT: No routine follow-up. HIGH RISK PATIENT: Optional CT at 12 months. 2. No new nodule, mass, infiltrate or groundglass opacity is seen. 3. There is no thoracic lymphadenopathy pleural effusion. 4. There is multi-level thoracolumbar spondylosis. No acute or aggressive osseous finding is seen. Fleischner guidelines were followed. Electronically signed by: Phillip Davis MD 05/25/2024 04:37 PM EDT
== END 2024-04-28 07:49 | disposition home or self-care (01) ==
LOC: HO.CT 07:48
PROVIDERS: Visit Provider Hospitalist
DX: R91.8 Other nonspecific abnormal finding of lung field (principal)
CPT/HCPCS: 71250

== ENCOUNTER 2024-05-09 09:50 | Outpatient (AMB) | payer OTHER, SELFPAY ==
--- NOTE | 2024-05-09 09:52 | A.OFFVIS_ITS ---
Vital Signs 05/09/24 09:56 Height 4 ft 10 in Weight 154 lb 5.177 oz BMI 32.3 BP 135/74 Blood Pressure Location Lt brachial Position Sitting Pulse 93 Intake Visit Reasons: 4 month f/u Intake Note: Cece presents in the office as a 4 month follow up. CC: 3 days in a row she was dealing with LUQ pains, stomach is bloated with hardness - she then had bouts of diarrhea. It all lasted 3 days. She states every time that she eats she vomits. 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: No Allergies folic acid Adverse Reaction (Unknown, Verified 05/09/24 09:57) Rash on neck HPI HPI 4 month f/u: Details: 58 yr old f with hx of breast cancer and xrt being seen for f/u RECAP: She had EGD for dysphagia 03/2022 she had balloon dilation to 20 mm at [facility] and LES with small tear noted, with esophagitis and gastritis path: inflammation at [facility] consistent with reflux changes H pylori neg 2018 (had been pos before and treated) US 2021-- fatty liver, no GB pathology GES: 13% at 4 hrs EGD: 11/19/23--dilation 20 mm, small tear, schatzki ring I gave her low dose TCA due to ongoing sx and poor sleep INTERIM: she did not agree with the TCA< made her worse last few days been having diarrhea and some abodminal pain denies sick contacts no fever no suspicious food ingestion she has dental infection and will be starting ABX she had amxoil 2 months ago for the same reason she has chronic nausea, vomiting EXAM: GENERAL: The patient is well developed and nontoxic. VITAL SIGNS:see workflow HEENT: Nonicteric sclerae, PERRLA, EOMI. Oropharynx clear. Moist mucous membranes. Conjunctivae appear well perfused. No thyroid mass. CHEST: Chest wall is nontender. HEART: Regular rate and rhythm without murmurs. LUNGS: Clear to auscultation bilaterally. ABDOMEN: Soft, positive bowel sounds, tender epigastrium, no organomegaly.no flank tenderness SKIN: No rash, no excessive bruising, petechiae, or purpura. NEUROLOGIC: Cranial nerves II-XII intact without motor/sensory deficit. 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 Surgical History History of eye surgery History of breast surgery (~11/11/19) History of esophagogastroduodenoscopy (EGD) H/O tubal ligation History of lumpectomy of both breasts (~10/03/19) Family History Mother HTN (hypertension) Father Diabetes Daughter Fibromyoma Maternal Aunt Cervical cancer Social History Household Members: None Housing: Apartment Are you a primary body care manager to a significant other at home: No Do you presently have visiting nurse or other home services: Yes ([facility]) Alcohol intake: never Patient Tobacco Use Status: Former Tobacco user service: No Current occupational status: unemployed Physical Exam Vital Signs: Last Vital Signs Pulse 93 05/09/24 09:56 BP 135/74 05/09/24 09:56 BMI result Body Mass Index 32.3 Assessment & Plan Assessment & Plan (1) Diarrhea: Code(s): R19.7 - Diarrhea, unspecified Category: Medical Plan: see above Orders: Orders Complete Blood Count Auto Diff Today R19.7 - Diarrhea, unspecified GI Panel Today R19.7 - Diarrhea, unspecified CDiff Gene PCR Today R19.7 - Diarrhea, unspecified Comprehensive Met. Panel Today K75.81 - Nonalcoholic steatohepatitis (ECHEVERRIA), R19.7 - Diarrhea, unspecified UA CC w/rflx Micro + Cult Today R19.7 - Diarrhea, unspecified, R30.0 - Dysuria Medications: New bismuth subsalicylate 2 tabs PO QID 14 days 112 tabs 0RF Coding Level of Care Code Est Pt Level 3 (94482) Diagnoses Diarrhea R19.7
[2024-05-09 09:56] VITALS: BP 135/74; PULSE 93; BMI 32.3
== END 2024-05-09 10:26 | disposition home or self-care (01) ==
PROVIDERS: PCP Internal Medicine Geriatric Medicine; Visit Provider Internal Medicine Gastroenterology
DX: R19.7 Diarrhea, unspecified (principal)
CPT/HCPCS: 99213

== ENCOUNTER → 2024-05-09 09:50 | Outpatient (BNVA) | payer OTHER, SELFPAY | PROVIDERS: PCP Internal Medicine Geriatric Medicine; Visit Provider Internal Medicine Gastroenterology | DX: K75.81 Nonalcoholic steatohepatitis (NASH) (principal); R10.12 Left upper quadrant pain; R19.7 Diarrhea, unspecified; R30.0 Dysuria | CPT/HCPCS: 99212 ==

== ENCOUNTER 2024-05-14 09:06 | Outpatient (REF) | payer OTHER, SELFPAY ==
[2024-05-14 09:35] LABS: MANUAL DIFF FLAG NO
[2024-05-14 10:13] LABS: Appearance Urine Cloudy; Color Urine Yellow; Glucose Urine UA Negative (Negative); Leukocyte Esterase Urine Negative (Negative); Nitrite Urine Negative (Negative); PH 5.5 (5.0-9.0); Specific Gravity - Urine 1.025 (1.005-1.025); UMIC TRIGGER UACC YES; Urine Blood Small (1+) (Negative); Urine Ketones Trace mg/dL (Negative); Urine Protein Trace mg/dL (Neg-Trace)
[2024-05-14 10:27] LABS: Bacteria Urine None Seen (None Seen); Squamous Epithelial Cell Urine >20 /HPF (0-2); WBC Urine 0-5 /HPF (0-5)
[2024-05-14 10:31] LABS: Alanine Aminotransferase 34 U/L (0-31); Albumin Level 4.3 g/dL (3.5-5.0); Alkaline Phosphatase 71 U/L (39-117); Anion Gap 13 (12-20); Aspartate Amino Transferase 30 U/L (5-31); Bilirubin Total 0.4 mg/dL (0.0-1.0); Blood Urea Nitrogen 18 mg/dL (9-16); C Reactive Protein 0.74 mg/dL (< or = 0.50); Calcium 9.8 mg/dL (8.4-10.2); Carbon Dioxide 29 mmol/L (22-29); Chloride 106 mmol/L (96-108); Cholesterol 218 mg/dL (<200); Estimated Glomerular Filt Rate > 60; Glucose Random 116 mg/dL (60-115); HDL Cholesterol 62 mg/dL (>40); LDL Cholesterol Calculated 130 mg/dL (<100); Potassium 3.8 mmol/L (3.3-5.1); Sodium 144 mmol/L (135-145); Total Protein 7.9 g/dL (6.5-8.0); Triglycerides 132 mg/dL (<150)
[2024-05-14 10:42] LABS: Basophils Percent Auto 0.5 % (0-2); Eosinophils Absolute Auto 0.1 X10*3/uL (0.0-0.4); Eosinophils Percent Auto 2.1 % (0-4); Hematocrit 37.3 % (37.0-47.0); Imm Gran Abs Auto 0.02 X10*3/uL (0.00-0.03); Imm Gran Pct Auto 0.5 % (0.0-0.4); Lymphocytes Absolute Auto 0.8 X10*3/uL (1.2-4.9); Lymphocytes Percent Auto 19.9 % (20-40); Mean Corpuscular HGB Conc 32.2 g/dl (31.0-35.0); Mean Platelet Volume 11.7 fL (9.4-12.3); Monocytes Absolute Auto 0.4 X10*3/uL (0.1-1.2); Monocytes Percent Auto 10.4 % (2-11); Neutrophils Absolute Auto 2.8 x10*3/uL (2.0-8.3); Neutrophils Percent Auto 66.6 % (45-73); Platelet Count 170 X10*3/uL (160-400); Red Blood Count 4.44 X10*6/uL (4.20-5.50); Red Cell Distribution Width 14.7 % (11.0-16.0); White Blood Count 4.2 X10*3/uL (4.8-10.8)
[2024-05-14 11:25] LABS: Erythrocyte Sedimentation Rate 63 MM/HR (0-20)
[2024-05-14 12:09] LABS: CDiff Gene PCR NEGATIVE (Negative)
[2024-05-14 12:38] LABS: Adenovirus F 40/41 Not Detected (Not Detect.); Astrovirus Not Detected (Not Detect.); Campylobacter Not Detected (Not Detect.); Cryptosporidium Not Detected (Not Detect.); Cyclospora cayetanensis Not Detected (Not Detect.); E. coli EAEC Not Detected (Not Detect.); E. coli EPEC Detected (Not Detect.); E. coli ETEC Not Detected (Not Detect.); E. coli STEC Not Detected (Not Detect.); Entamoeba histolytica Not Detected (Not Detect.); Giardia lamblia Not Detected (Not Detect.); Norovirus GI/GII Not Detected (Not Detect.); Plesiomonas shigelloides Not Detected (Not Detect.); Rotavirus A Not Detected (Not Detect.); Salmonella Not Detected (Not Detect.); Sapovirus Not Detected (Not Detect.); Shigella sp./EIEC Not Detected (Not Detect.); Vibrio Not Detected (Not Detect.); Vibrio Cholerae Not Detected (Not Detect.); Yersinia enterocolitica Not Detected (Not Detect.)
== END 2024-05-14 09:07 | disposition home or self-care (01) ==
LOC: HO.LAB 09:06
PROVIDERS: Student in an Organized Health Care Education/Training Program; PCP Internal Medicine Geriatric Medicine; Visit Provider Internal Medicine Gastroenterology
DX: M06.9 Rheumatoid arthritis, unspecified (principal); I10 Essential (primary) hypertension; K75.81 Nonalcoholic steatohepatitis (NASH); R19.7 Diarrhea, unspecified
CPT/HCPCS: 36415; 80053; 80061; 81001; 81003; 85025; 85652; 86140; 87493; 87507

== ENCOUNTER 2024-06-29 15:14 | Outpatient (REF) | payer OTHER, SELFPAY ==
[2024-06-29 16:12] LABS: Appearance Urine Cloudy; Color Urine Yellow; Glucose Urine UA Negative (Negative); Leukocyte Esterase Urine Negative (Negative); Nitrite Urine Negative (Negative); PH 5.5 (5.0-9.0); Specific Gravity - Urine 1.025 (1.005-1.025); UMIC TRIGGER UACC YES; Urine Blood Trace (Negative); Urine Ketones Trace mg/dL (Negative); Urine Protein Trace mg/dL (Neg-Trace)
[2024-06-29 16:15] LABS: Bacteria Urine 1+ (None Seen); Hyaline Casts Urine 0-2 /LPF (0-2); Squamous Epithelial Cell Urine >20 /HPF (0-2); WBC Urine 0-5 /HPF (0-5)
== END 2024-06-29 15:15 | disposition home or self-care (01) ==
LOC: HO.HHCL 15:14
PROVIDERS: Visit Provider Internal Medicine Geriatric Medicine
DX: R30.0 Dysuria (principal)
CPT/HCPCS: 81001

== ENCOUNTER 2024-07-01 10:10 | Outpatient (AMB) | payer OTHER, SELFPAY ==
[2024-07-01 10:37] VITALS: BP 132/78; PULSE 74; O2SAT 99; BMI 31.8
--- NOTE | 2024-07-01 10:37 | MHC.OFFVIS ---
Vital Signs 07/01/24 10:37 Height 4 ft 10 in Weight 152 lb 1.903 oz BMI 31.8 BP 132/78 Blood Pressure Location Lt brachial Position Sitting Pulse 74 Pulse Source Pulse Oximeter Pulse Oximetry (%) 99 Oxygen Delivery Method Room Air Intake Visit Reasons: Cough/ CT scan follow up Local Coordinator Required: No Allergies folic acid Adverse Reaction (Unknown, Verified 07/01/24 10:39) Rash on neck HPI Comments Details: The patient is a 59 year woman with a known history of rheumatoid arthritis in addition to breast cancer status post radiation and also surgery. Apparently she has been developing worsening cough. The cough is moderate severe. Worse when she lays flat. At times is productive. She does have a rescue inhaler that does provide her some relief. At this point the cough is a little better. She did have a chest x-ray demonstrating evidence of peribronchial cuffing suggesting some degree of bronchitis. The patient does have underlying connective tissue conditions and she did follow-up with Rheumatology. The recommendation was for her to have a CT scan of the chest with high-resolution cuts to assess for interstitial lung disease related to her connective tissue disease. The CT scan has not been completed as of yet. Will follow up with the results. In the meantime will request additional blood work. since the patient is doing well will hold off on additional medications. If the patient has any worsening symptoms prior to the next visit she is to call for further evaluation. Will await the blood work and also await her CT scan of the chest for further recommendations. 06/01/2023 the patient overall so better. Her cough is significantly better. She was recently placed on methotrexate and seems to be tolerating well. No evidence of any pulmonary adverse effects from the methotrexate at this time. Explained to the patient ultimately treating her rheumatoid arthritis may also improve her airway issues. We did review her blood work no significant allergies noted. Also she had a CT scan of the chest which we personally reviewed no evident a evidence of interstitial lung disease. The patient does have pulmonary nodules bilaterally that we need to be followed up with a CT scan in a year's time. This would be February of 2024. the patient does have a rescue inhaler that she is not required. at this point the patient is going to continue with short-acting beta agonist. Will continue to monitor her response to methotrexate. Will follow-up in February after her CT scan. 07/01/2024 the patient is here for a pulmonary follow-up visit. Overall she is doing okay. The patient did stop taking the methotrexate because she was having an allergy issue. She was then offered Enbrel but then she stopped that it to because she was concerned about the shots. She has been without any medications. As far as her lungs she did have a CT scan of the chest which we personally reviewed. No evidence of any significant pulmonary nodules just measuring 3 mm in size. No evidence of any interstitial lung disease which is reassuring. The patient will get another CT scan in a year's time. She will continue with current respiratory regimen. And I did recommend she follow-up with a natural resource specialist to make sure that her connective tissue disease does not progress into the lungs. 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 Surgical History History of eye surgery History of breast surgery (~11/11/19) History of esophagogastroduodenoscopy (EGD) H/O tubal ligation History of lumpectomy of both breasts (~10/03/19) Family History Mother HTN (hypertension) Father Diabetes Daughter Fibromyoma Maternal Aunt Cervical cancer Social History Household Members: None Housing: Apartment Are you a primary patient centered care specialist to a significant other at home: No Do you presently have visiting nurse or other home services: Yes ([facility]) Alcohol intake: never Patient Tobacco Use Status: Former Tobacco user service: No Current occupational status: unemployed Review of Systems Const Reports weight loss Eyes Reports dry eyes and Reports itchy eyes ENT Reports dry mouth and Reports tinnitus Card Denies dyspnea on exertion Resp Denies cough and Denies dyspnea on exertion GI Reports constipation, Reports nausea and Reports vomiting Musc Reports arthralgias, Reports joint swelling and Reports stiffness Psych Reports anxiety Aller/Immun Reports itchy eyes Physical Exam Vital Signs: Last Vital Signs Pulse 74 07/01/24 10:37 BP 132/78 07/01/24 10:37 Pulse Ox 99 07/01/24 10:37 Oxygen Delivery Method Room Air 07/01/24 10:37 BMI result Body Mass Index 31.8 Const General: cooperative, healthy appearing and comfortable Nutritional Appearance: overweight Orientation/consciousness: patient oriented x3 Limitations: no limitations HEENT Head: Yes normocephalic and Yes atraumatic Mouth: moist mucous membranes Resp Effort & Inspection: normal respiratory effort and able to speak in complete sentences Auscultation: clear to auscultation bilaterally Cardio Rate: regular rate Rhythm: regular rhythm Heart sounds: S1 normal heart sound present and S2 normal heart sound present GI Inspection: No distended Palpation (GI): Soft to palpation and nontender Skin General skin exam: no rashes or lesions noted Neuro General: patient oriented x3 Assessment & Plan Assessment & Plan (1) Bronchitis: Code(s): J40 - Bronchitis, not specified as acute or chronic Category: Medical (2) Chronic cough: Code(s): R05.3 - Chronic cough Category: Medical (3) Rheumatoid arthritis: Comment: -ve +++CCP dx 2020 HCQ started 11/2020. Caused GI upset and discontinued MTX 03/2023 had an allergic reaction to folic acid Code(s): M06.9 - Rheumatoid arthritis, unspecified Category: Medical Qualifiers: Rheumatoid arthritis location: multiple sites Rheumatoid factor presence: without rheumatoid factor Qualified Code(s): M06.09 - Rheumatoid arthritis without rheumatoid factor, multiple sites (4) Allergic rhinitis: Code(s): J30.9 - Allergic rhinitis, unspecified Category: Medical Qualifiers: Allergic rhinitis seasonality: unspecified Allergic rhinitis trigger: other Qualified Code(s): J30.89 - Other allergic rhinitis (5) Radiation fibrosis of lung: Code(s): J70.1 - Chronic and other pulmonary manifestations due to radiation Category: Medical (6) Pulmonary nodules: Code(s): R91.8 - Other nonspecific abnormal finding of lung field Category: Medical Plan Continue CRISTIN as needed start claritin as needed start Fluticasone nasal spray CT chest 1 yr stopped MTX due to rash F/U 1 yr Orders: Orders CT chest wo IV con 1 Year R91.8 - Other nonspecific abnormal finding of lung field Medications: New fluticasone propionate 50 mcg/actuation 2 sprays intranasal DAILY 30 days 15.8 mL 11RF J31.0 - Chronic rhinitis loratadine (Claritin) 10 mg PO DAILY 30 days 30 tabs 11RF J30.2 - Other seasonal allergic rhinitis, J45.909 - Unspecified asthma, uncomplicated Coding Level of Care Code Est Pt Level 4 (04522) Diagnoses Bronchitis J40 Chronic cough R05.3 Rheumatoid arthritis of multiple sites with negative rheumatoid factor M06.09 Rheumatoid arthritis location: multiple sites Rheumatoid factor presence: without rheumatoid factor Allergic rhinitis due to other allergic trigger, unspecified seasonality J30.89 Allergic rhinitis seasonality: unspecified Allergic rhinitis trigger: other Radiation fibrosis of lung J70.1 Pulmonary nodules R91.8 Time Spent (min) 17
== END 2024-07-01 10:56 | disposition home or self-care (01) ==
PROVIDERS: PCP Internal Medicine Geriatric Medicine; Visit Provider Hospitalist
DX: J40 Bronchitis, not specified as acute or chronic (principal); R05.3 Chronic cough; M06.09 Rheumatoid arthritis without rheumatoid factor, multiple sites; J30.89 Other allergic rhinitis; J70.1 Chronic and other pulmonary manifestations due to radiation; R91.8 Other nonspecific abnormal finding of lung field
CPT/HCPCS: 99214

== ENCOUNTER → 2024-07-01 10:10 | Outpatient (BNVA) | payer OTHER, SELFPAY | PROVIDERS: PCP Internal Medicine Geriatric Medicine; Visit Provider Hospitalist | DX: J40 Bronchitis, not specified as acute or chronic (principal); R05.3 Chronic cough; J70.1 Chronic and other pulmonary manifestations due to radiation; J30.9 Allergic rhinitis, unspecified; R91.8 Other nonspecific abnormal finding of lung field; M06.09 Rheumatoid arthritis without rheumatoid factor, multiple sites | CPT/HCPCS: 99212 ==

== ENCOUNTER → 2024-09-05 10:28 | Outpatient (BNVA) | payer OTHER, SELFPAY | PROVIDERS: PCP Internal Medicine Geriatric Medicine; Visit Provider Internal Medicine Gastroenterology | DX: R11.2 Nausea with vomiting, unspecified (principal); R19.7 Diarrhea, unspecified; R10.33 Periumbilical pain; K75.81 Nonalcoholic steatohepatitis (NASH) | CPT/HCPCS: 99212 ==

== ENCOUNTER 2024-09-06 10:52 | Day surgery (SDC) | payer OTHER, SELFPAY ==
[2024-09-06 11:28] VITALS: BP 181/71; PULSE 83; RESP 18; TEMP 36.9; O2SAT 96; BMI 29.7
--- NOTE | 2024-09-06 12:37 | MHC.SHP ---
Pre-Procedural Eval Section A - 24 Hr Update-Section A only Date of Service: 09/06/24 The patient is an INPATIENT: No The patient has been examined within 24 hours of the surgical procedure. The History & Physical has been completed within 30 days and I have reviewed it.: Yes Section B - Complete if H&P > 30 days Chief Complaint: Dysphagia, unspecified Allergies: Allergies Allergy/AdvReac Type Severity Reaction Status Date / Time folic acid AdvReac Unknown Rash on Verified 09/05/24 10:30 neck Plan Diagnosis/Plan: Unchanged I have reviewed the history and physical and performed a pertinent physical examination on my patient. No changes have occurred unless specified. Time Spent With Patient Time: Total time managing care of this patient today ____ minutes.
--- NOTE | 2024-09-06 13:17 | HO.ANESPROP2 ---
HPI - Anesthesia Eval Consult details Narrative: 59 yo female patient for EGD, balloon dilatation PMFSH Active Problems Active Problems: All Active Problems (Updated 09/06/24 @ 13:19 by Jeaneth Tomlinson MD) Diarrhea (Acute) Ductal carcinoma in situ (DCIS) of breast (Acute) Axillary adenitis (Acute) High risk medication use (Acute) ALBERT (acute kidney injury) (Acute) Pulmonary nodules (Acute) Radiation fibrosis of lung (Acute) Allergic rhinitis (Acute) Bronchitis (Acute) Chronic cough (Acute) Cutaneous fungal infection (Acute) Swelling of right hand (Acute) GERD (gastroesophageal reflux disease) (Acute) Hepatic steatosis (Acute) Rheumatoid arthritis (Acute) Left breast lump (Acute) Right knee pain (Acute) Dysphagia (Acute) H. 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 Family History Family History Mother HTN (hypertension) Father Diabetes Daughter Fibromyoma Maternal Aunt Cervical cancer Family history of problems with anesthesia: No Surgical History Surgical History History of eye surgery History of breast surgery (~11/11/19) History of esophagogastroduodenoscopy (EGD) H/O tubal ligation History of lumpectomy of both breasts (~10/03/19) History of Problems with Anesthesia: No Social History Social History Household Members: None Housing: Apartment Are you a primary continuum of care manager to a significant other at home: No Do you presently have visiting nurse or other home services: Yes ([facility]) Alcohol intake: never Patient Tobacco Use Status: Former Tobacco user service: No Current occupational status: unemployed Meds Allergies Allergy/AdvReac Type Severity Reaction Status Date / Time folic acid AdvReac Unknown Rash on Verified 09/05/24 10:30 neck Home Medications ?Medication ?Instructions ?Recorded ?Confirmed ?Last Taken ?Type clonidine HCl 0.2 mg tablet 0.2 mg PO DAILY 07/31/20 03/22/24 09/05/24 History hydrocortisone 1 % topical cream 1 applic topical NEEDED 07/31/20 03/22/24 09/01/24 History lorazepam 0.5 mg tablet 1 tab PO DAILY PRN Anxiety 05/03/21 03/22/24 09/01/24 History albuterol sulfate 90 mcg/actuation 90 mcg inhalation DAILY 01/02/23 03/22/24 09/05/24 History aerosol inhaler (Ventolin HFA) calcium carbonate 500 mg PO BID 11/16/23 03/22/24 09/01/24 History quetiapine 50 mg tablet 50 mg PO DIRECTED 11/16/23 03/22/24 09/04/24 History blood pressure test kit-large #1 ea 05/09/24 Unknown History tramadol 50 mg tablet 50 mg PO TID PRN Pain (Scale Score 05/09/24 09/04/24 History 4-6) Exam Height,Weight and Vital Signs: Height 4 ft 11 in Weight 66.678 kg Last Vital Signs Temp 98.5 F 09/06/24 11:28 Pulse 83 09/06/24 11:28 Resp 18 09/06/24 11:28 BP 181/71 H 09/06/24 11:28 Pulse Ox 96 09/06/24 11:28 O2 Del Method Room Air 09/06/24 11:28 Airway Mallampati Class: III TM Dist: >3cm Neck ROM: Full Partial: Lower Loose/Missing/Broken Teeth: Yes (Denies broken or loose teeth) Heart: RRR Lungs: CTAB Assessment and Plan Assessment Anesthesia Assessment: Anesthesia Plan Discussed and Chart Reviewed Final Anesthetic Review Family History of Problems with Anesthesia: No History of Problems with Anesthesia: No NPO: Yes ASA Class: III Final Preanesthetic Review: No Changes in Pt Med Stat, Meds/Allgs Chart Reviewed, Consent Obtained/Reviewed and Anes Risks/Benef Reviewed Patient Risk: Intermediate Procedure Risk: Low Assessment/Block/Sedation in SS: Assess/Block/Sedation-SS Anesthetic Plan Anesthetic Plan: TIVA Disposition: Standard PACU
[2024-09-06] MEDS: Lactated Ringers 1,000 ML 100 ML IVCONT (13:19)
--- NOTE | 2024-09-06 13:38 | W.PM.OPN ---
Operative Note Operative Note Date of Service: 09/06/24 Narrative: Procedure Description: EGD Indication: dysphagia Anesthesia: MAC FLEXIBLE TRANSORAL UPPER GASTROINTESTINAL ENDOSCOPY UPPER ENDOSCOPY Consent: Indications for the procedure and potential complications of bleeding, perforation, reaction to medications and missed diagnosis were discussed with the patient and informed consent was obtained. Instrument: Olympus GIF H 190 J mid size upper endoscope Monitoring: Vital signs and clinical assessment, continuous EKG monitoring, Pulse oximetry, Carbon Dioxide monitoring and blood pressure monitoring were done throughout the procedure. Procedure: The patient was placed in the left lateral decubitis position and pre-procedure medications were administered and a bite block was placed. The endoscope was inserted into the mouth and advanced under direct vision to the third part of duodenum. A careful inspection was made as the upper endoscope was withdrawn including a retroflexed examination of the proximal stomach; Findings and interventions are described below. Findings: Larynx:normal Esophagus: GE junction at 32 cm, diaphragm hiatus at 34 cm, Schatzki ring noted. Balloon dilation done to 20 mm at lower esophagus and upper esophagus with small tear noted at GEJ junction. Stomach: Mild gastritis. Grade 3 flap valve on retroflexed examination of the cardia. Pylorus seemed tight and stretched with wire guided balloon to 20 mm, no tears seen Duodenum: Normal bulb and descending duodenum, Intervention: balloon dilation -wire guided pylorus and non wire of esophagus Impression/Findings: schatzki ring small hiatal hernia PLAN: cont with dexilant, if ongoing sx then change PPI if despite that sx persist then manometry or CR reflux precautions
[2024-09-06 13:45] VITALS: BP 137/72; PULSE 75; RESP 21; TEMP 36.1; O2SAT 99
[2024-09-06 14:00] VITALS: BP 150/83; PULSE 64; RESP 18; TEMP 36.6; O2SAT 97
== END 2024-09-06 14:22 | disposition home or self-care (01) ==
PROVIDERS: PCP Internal Medicine Geriatric Medicine; Visit Provider Internal Medicine Gastroenterology
PROC: 0DJ08ZZ Inspection of Upper Intestinal Tract, Via Natural or Artificial Opening Endoscopic (ICD-10-PCS; CPT 43235; principal; 2024-09-06 14:10)
DX: R13.10 Dysphagia, unspecified (principal); K29.70 Gastritis, unspecified, without bleeding; K22.2 Esophageal obstruction; K44.9 Diaphragmatic hernia without obstruction or gangrene; E11.9 Type 2 diabetes mellitus without complications; E78.00 Pure hypercholesterolemia, unspecified; K75.81 Nonalcoholic steatohepatitis (NASH); Z98.51 Tubal ligation status; Z87.891 Personal history of nicotine dependence; Z85.3 Personal history of malignant neoplasm of breast
CPT/HCPCS: 43245; 43249; 88305; 88313; 88342; C1726; J2003; J2704

== ENCOUNTER → 2024-09-06 10:52 | Outpatient (BNV) | payer OTHER, SELFPAY | PROVIDERS: PCP Internal Medicine Geriatric Medicine; Visit Provider Internal Medicine Gastroenterology | DX: K22.2 Esophageal obstruction (principal); K31.1 Adult hypertrophic pyloric stenosis | CPT/HCPCS: 43245; 43249 ==

== ENCOUNTER 2024-10-06 15:19 | Outpatient (AMB) | payer OTHER, SELFPAY ==
--- NOTE | 2024-10-06 15:21 | MHC.OFFVIS ---
Vital Signs 10/06/24 15:29 Height 4 ft 11 in Weight 146 lb 4 oz BMI 29.5 BP 177/86 H Blood Pressure Location Lt brachial Position Sitting Pulse 97 Intake Visit Reasons: 6 month breast exam Intake Note: Patient is seen in office for 6 month follow up visit, breast exam. Patient c/o: right side around the incision has pain and redness at the axilla where lymph nodes where removed, denies any other concerns mm sched: 11/10/24 Animal Laboratory Technician Required: No Dairy Equipment Installer: Dairy Equipment Installer Present Accompanied by: Self / Same As Patient Allergies folic acid Adverse Reaction (Unknown, Verified 09/05/24 10:30) Rash on neck Medication List - Last Reconciled 10/07/24 by Phillip Acuna MD albuterol sulfate 90 mcg/actuation (Ventolin HFA) 90 mcg inhalation DAILY bismuth subsalicylate 2 tabs PO QID 14 days blood pressure test kit-large As directed calcitriol 0.25 mcg PO DAILY calcium carbonate 500 mg PO BID cholecalciferol (vitamin D3) 50 mcg PO DAILY clonidine HCl 0.2 mg PO DAILY dexlansoprazole 60 mg PO DAILY famotidine 40 mg PO BEDTIME fluticasone propionate 50 mcg/actuation 2 sprays intranasal DAILY 30 days hydrocortisone 1% 1 appl topical NEEDED loratadine (Claritin) 10 mg PO DAILY 30 days lorazepam 1 tab PO DAILY PRN nystatin 1 appl topical BID quetiapine 50 mg PO DIRECTED tramadol 50 mg PO TID PRN HPI Comments Details: Cece Metz is a 59 year old female patient of Dr. Crowell returning for a follow up breast examination following surgery for DCIS in bilateral breasts on 10/03/2019. Margins in the right side were felt to be close therefore a wider excision was performed on 11/11/2019 with no additional DCIS identified. She was initially placed on Tamoxifen by Dr. Santoyo but later changed to exemestane and seen by [facility] at [facility]. She completed radiation therapy 02/21/2020.? She continues to report bilateral breast pain especially on the right side the upper outer quadrant. She notes some swelling in the upper outer portion of the right breast into the axilla with pain. She continues to follow Dr. Santoyo but is not currently on any oral antiestrogen medication. Mammogram of the right breast performed on 04/13/2024 revealed stable post therapy changes in the right breast with no mammographic evidence of malignancy (BI-RADS 2). Ultrasound also reveals no suspicious findings. She is due for a bilateral mammogram in October 2024. 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 Surgical History History of eye surgery History of breast surgery (~11/11/19) History of esophagogastroduodenoscopy (EGD) H/O tubal ligation History of lumpectomy of both breasts (~10/03/19) Family History Mother HTN (hypertension) Father Diabetes Daughter Fibromyoma Maternal Aunt Cervical cancer Social History Household Members: None Housing: Apartment Are you a primary skin care consultant to a significant other at home: No Do you presently have visiting nurse or other home services: Yes ([facility]) Alcohol intake: never Patient Tobacco Use Status: Former Tobacco user service: No Current occupational status: unemployed Review of Systems Const Denies chills, Denies fever(s) and Denies poor appetite Card Denies chest pain, Denies rapid heart rate, Denies palpitations and Denies slow heart rate Resp Denies chest congestion, Denies cough, Denies pain on inspiration and Denies wheezing Denies nipple discharge Musc Denies back pain, Reports arthralgias, Denies joint swelling and Denies numbness Skin/Breast Reports as per HPI, Reports breast pain, Denies change in pigmentation, Denies nipple discharge, Denies erythema and Denies rash Neuro Denies numbness Endo Denies palpitations Woodrow/Lymph Denies lymphadenopathy Aller/Immun Denies wheezing Physical Exam Vital Signs: Last Vital Signs Pulse 97 10/06/24 15:29 BP 177/86 H 10/06/24 15:29 BMI result Body Mass Index 29.5 Const General: comfortable and no acute distress Nutritional Appearance: well nourished Orientation/consciousness: patient oriented x3 Limitations: no limitations HEENT Head: Yes normocephalic and Yes atraumatic Chest Other: Right breast with volume loss specially in the upper outer quadrant with hollows from the prior surgery. No discrete masses appreciated within this area or in the remaining breast tissue. Skin retraction essentially unchanged from prior examinations. No enlarged lymph nodes, palpable mass, or new skin changes appreciated. No nipple discharge. Left breast with post radiation change but well-healed scar and no palpable mass, skin change, nipple discharge or enlarged lymph nodes. 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 She subsequent underwent radiation therapy. Examination reveals residual post therapy changes and volume loss right breast but no suspicious findings in either breast. No suspicious findings were noted in either breast. She will be due for a annual bilateral mammogram in October 2024. I recommended she follow up in 6 months for routine breast examination. She is welcome to call sooner for any new concerns. Orders: Orders Comprehensive Met. 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
[2024-10-06 15:29] VITALS: BP 177/86; PULSE 97; BMI 29.5
== END 2024-10-06 15:50 | disposition home or self-care (01) ==
PROVIDERS: PCP Internal Medicine Geriatric Medicine; Visit Provider Surgery
DX: D05.11 Intraductal carcinoma in situ of right breast (principal); D05.12 Intraductal carcinoma in situ of left breast; I88.9 Nonspecific lymphadenitis, unspecified
CPT/HCPCS: 99213; G2211

== ENCOUNTER 2024-10-06 15:19 | Outpatient (REF) | payer OTHER, SELFPAY ==
[2024-10-06 16:02] LABS: MANUAL DIFF FLAG NO
[2024-10-06 16:44] LABS: Basophils Percent Auto 0.4 % (0-2); Eosinophils Absolute Auto 0.1 X10*3/uL (0.0-0.4); Eosinophils Percent Auto 1.6 % (0-4); Hematocrit 37.6 % (37.0-47.0); Hemoglobin 12.2 g/dl (12.0-16.0); Imm Gran Abs Auto 0.02 X10*3/uL (0.00-0.03); Imm Gran Pct Auto 0.4 % (0.0-0.4); Lymphocytes Percent Auto 17.9 % (20-40); Mean Corpuscular HGB Conc 32.4 g/dl (31.0-35.0); Mean Corpuscular Hemoglobin 27.6 pg (27.0-33.0); Mean Corpuscular Volume 85.1 fL (80.0-98.0); Mean Platelet Volume 11.4 fL (9.4-12.3); Monocytes Absolute Auto 0.5 X10*3/uL (0.1-1.2); Monocytes Percent Auto 8.2 % (2-11); Neutrophils Percent Auto 71.5 % (45-73); Platelet Count 179 X10*3/uL (160-400); Red Blood Count 4.42 X10*6/uL (4.20-5.50); Red Cell Distribution Width 14.9 % (11.0-16.0); White Blood Count 5.5 X10*3/uL (4.8-10.8)
[2024-10-06 17:13] LABS: Albumin Level 4.2 g/dL (3.5-5.0); Alkaline Phosphatase 78 U/L (39-117); Anion Gap 11 (12-20); Aspartate Amino Transferase 41 U/L (5-31); Bilirubin Total 0.3 mg/dL (0.0-1.0); Blood Urea Nitrogen 21 mg/dL (9-16); Calcium 9.4 mg/dL (8.4-10.2); Carbon Dioxide 27 mmol/L (22-29); Chloride 108 mmol/L (96-108); Estimated Glomerular Filt Rate > 60; Glucose Random 96 mg/dL (60-115); Potassium 3.7 mmol/L (3.3-5.1); Sodium 142 mmol/L (135-145); Total Protein 8.5 g/dL (6.5-8.0)
[2024-10-06 17:25] LABS: Alanine Aminotransferase 37 U/L (0-31)
== END 2024-10-06 15:20 | disposition home or self-care (01) ==
LOC: HO.LAB 15:19
PROVIDERS: PCP Internal Medicine Geriatric Medicine; Visit Provider Surgery
DX: D05.11 Intraductal carcinoma in situ of right breast (principal); D05.12 Intraductal carcinoma in situ of left breast; I88.9 Nonspecific lymphadenitis, unspecified
CPT/HCPCS: 36415; 80053; 85025; 99212

== ENCOUNTER 2024-10-25 12:56 | Outpatient (AMB) | payer OTHER, SELFPAY ==
--- NOTE | 2024-10-25 13:09 | A.OFFVIS_ITS ---
Vital Signs 10/25/24 13:14 Height 4 ft 11 in Weight 145 lb 11.609 oz BMI 29.4 BP 150/84 H Blood Pressure Location Lt brachial Position Sitting Pulse 84 Pulse Source Pulse Oximeter Pulse Oximetry (%) 98 Oxygen Delivery Method Room Air Intake Visit Reasons: RA Intake Note: Patient presents for RA. Allergies folic acid Adverse Reaction (Unknown, Verified 10/25/24 13:12) Rash on neck Medication List - Last Reconciled 10/25/24 by Kiki Mabry MD albuterol sulfate 90 mcg/actuation (Ventolin HFA) 90 mcg inhalation DAILY bismuth subsalicylate 2 tabs PO QID 14 days blood pressure test kit-large As directed calcitriol 0.25 mcg PO DAILY calcium carbonate 500 mg PO BID cholecalciferol (vitamin D3) 50 mcg PO DAILY clonidine HCl 0.2 mg PO DAILY dexlansoprazole 60 mg PO DAILY famotidine 40 mg PO BEDTIME fluticasone propionate 50 mcg/actuation 2 sprays intranasal DAILY 30 days hydrocortisone 1% 1 appl topical NEEDED loratadine (Claritin) 10 mg PO DAILY 30 days lorazepam 1 tab PO DAILY PRN ondansetron 4 mg PO Q8H PRN quetiapine 50 mg PO DIRECTED tramadol 50 mg PO TID PRN HPI Comments Details: Patient is a 59-year-old female with history of breast cancer status post radiation complicated by radiation fibrosis of the lung, GERD, gastroparesis of uncertain etiology, polyarticular osteoarthritis and seropositive rheumatoid arthritis here today for follow up Interval History: Patient last seen 11/16/[address] Chambers. At that time she continued to have intermittent joint pain and swelling involving her wrists, fingers and hands. Based on her exam as well as elevated inflammatory markers the decision was made to start DMARDs. P.o. DMARDs were deemed unsuitable given her history of gastroparesis and recurrent vomiting after eating and so she was started on Enbrel Since then, Patient did not start Enbrel due to concerns of infection Today, Patient continues to complain of joint pain Rheumatologic History: Seropositive rheumatoid arthritis -ve RF +++CCP dx 2020 HCQ started 11/2020. Caused GI upset and discontinued MTX 03/2023 had an allergic reaction to folic acid Enbrel started 10/[address] Norwood: Patient reports pain in her hands and her wrists that has been present for approximately 2 years. Symptoms are generally worse in her right hand. States that she can experience swelling in her wrists and occasionally her fingers can lock up. States that she does not have symptoms daily, states that they come and go. Gets symptoms approximately a few times per months. Gets morning stiffness in her hands that can last a few minutes. Also feels that her hands can become numb when she first wakes up. Patient has a photo on her phone which she showed me that does demonstrate swelling in the MCP joints of her right hand. Pt has breast cancer, completed radiation therapy approximately 7 months ago and now takes an aromatase inhibitor. Patient denies Raynaud's, photosensitivity, oral or nasal ulcers, sicca sy mptoms, fevers. No family history of RA or SLE. 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 Surgical History History of eye surgery History of breast surgery (~11/11/19) History of esophagogastroduodenoscopy (EGD) H/O tubal ligation History of lumpectomy of both breasts (~10/03/19) Family History Mother HTN (hypertension) Father Diabetes Daughter Fibromyoma Maternal Aunt Cervical cancer Social History Household Members: None Housing: Apartment Are you a primary campground caretaker to a significant other at home: No Do you presently have visiting nurse or other home services: Yes ([facility]) Alcohol intake: never Patient Tobacco Use Status: Former Tobacco user service: No Current occupational status: unemployed Review of Systems Const Details: Review of Systems Constitutional: Denies fever, chills, weight loss ENT: Denies vision changes, eye pain or eye redness, dental caries, dry mouth GI: Denies nausea, vomiting, diarrhea, abdominal pain, change in BM Pulm: Denies SOB, HERNANDEZ, hemoptysis, wheezing Cards: Denies chest pain, palpitations Skin: Denies Raynaud's, rash, nail changes, photosensitivity, MAIL DISTRIBUTOR: Denies headaches, weakness, paresthesias, recurrent falls MSK: as per HPI All other systems reviewed and are unremarkable except noted above Physical Exam Vital Signs: Last Vital Signs Pulse 84 10/25/24 13:14 BP 150/84 H 10/25/24 13:14 Pulse Ox 98 10/25/24 13:14 Oxygen Delivery Method Room Air 10/25/24 13:14 BMI result Body Mass Index 29.4 Vital signs reviewed Physical Examination CONSTITUITIONAL Patient alert and cooperative. Well appearing and in no apparent painful distress HEENT Conjunctiva and sclera clear. ?Pupils equal round and reactive to light. ?No lymphadenopathy. ? CHEST/RESPIRATORY SYSTEM Normal respiratory effort and able to speak in complete sentences. ?Clear to auscultation bilaterally. ?No crackles, rales, rhonchi, wheezes heard. CARDIAC SYSTEM Regular rate and rhythm. ?S1 and S2 heard no murmurs. ?Radial pulses intact bilaterally MSK Hands: ?Good weight reduction specialist strength bilaterally. No deformities noted. ?Tenderness to palpation of MCPs and PIPs bilaterally Wrists: ?Full range of motion at the wrists. Tenderness to palpation of bilateral wrists but no obvious swelling Elbows: Full range of motion without pain. No tenderness, weakness, swelling, increased warmth or erythema. Shoulders: Full range of motion without pain. No tenderness, weakness, swelling, increased warmth or erythema. Hips: Full range of motion without pain. Hip bursa: No tenderness to palpation Knees: ?Full range of motion. ?No tenderness, swelling, increased warmth or erythema.?No effusion or crepitations Ankles: Full range of motion. ?No tenderness, swelling, increased warmth or erythema.? Feet: ?Negative squeeze test. ?No tenderness to palpation or swelling of the MTPs. Tender points:?No tenderness to palpation of the bilateral trapezius, supraspinatus, greater trochanters, anterior costochondral junctions, bilateral gluteal areas, bilateral suboccipital muscle insertions SKIN Skin intact without rashes. Results Reviewed Results Reviewed: Laboratory Tests 06/04/20 10/30/20 01/02/23 09:56 10:15 15:20 WBC RBC Hgb Hct Plt Count ESR Sodium Potassium Chloride Carbon Dioxide BUN Creatinine AST ALT C-Reactive Protein Rheumatoid Factor < 15.0 Cycl Citrul Peptide IgG >250 H Hepatitis A IgM Ab Nonreactive Hep Bs Antigen Negative Hep Bs Antibody REACTIVE Hep B Core Total Ab Nonreactive Hepatitis C Ab (EIA) Nonreactive TB Test (T-Spot) Com Negative 05/14/24 10/06/24 09:34 16:00 WBC 5.5 RBC 4.42 Hgb 12.2 Hct 37.6 Plt Count 179 ESR 63 H Sodium 142 Potassium 3.7 Chloride 108 Carbon Dioxide 27 BUN 21 H Creatinine 0.95 AST 41 H ALT 37 H C-Reactive Protein 0.74 H Rheumatoid Factor Cycl Citrul Peptide IgG Hepatitis A IgM Ab Hep Bs Antigen Hep Bs Antibody Hep B Core Total Ab Hepatitis C Ab (EIA) TB Test (T-Spot) Com Assessment & Plan Assessment & Plan (1) Rheumatoid arthritis: Comment: -ve +++CCP dx 2020 HCQ started 11/2020. Caused GI upset and discontinued MTX 03/2023 had an allergic reaction to folic acid Code(s): M06.9 - Rheumatoid arthritis, unspecified Category: Medical Qualifiers: Rheumatoid arthritis location: multiple sites Rheumatoid factor presence: without rheumatoid factor Qualified Code(s): M06.09 - Rheumatoid arthritis without rheumatoid factor, multiple sites Plan: #Seropositive RA Patient is a 59-year-old female with seropositive rheumatoid arthritis that is currently in a flare of her disease on a background of not taking her medication Discussed with the patient that without taking the medication we on unable to assist her in her joint pain and she is willing to start the Enbrel We will send a new script Plan - Enbrel 50mg SC weekly - check hepatitis panel and T spot today - RTC 4 months - Labs before visit: CBC, CMP, ESR, CRP (2) USP (current) use of immunosuppressive biologic: Code(s): Z79.620 - clinical research director (current) use of immunosuppressive biologic Category: Medical Plan: #Long-term Use of TNF Inhibitors: Enbrel Discussed with the patient the benefits and risks of TNF inhibitors for the management of the rheumatic condition Benefits include reduce pain, maintenance of remission and reduction of flares as well as ?progression of the disease Risks include injection sites/infusion reactions, serious infections (such as bacterial infections, opportunistic infections), malignancy, delaminating syndromes, autoimmune phenomena, CHF exacerbations, palmar plantar psoriasis and cytopenias Recommended rotating injection sites, and holding medication during and for up to 1 week after resolution of a febrile illness or open skin wound Plan I spent 45 minutes reviewing the record and labs, taking a history, examining the patient, discussing the treatment plan and documenting in the medical record Orders: Orders Hepatitis A,B,C Profile 10/25/24 M06.09 - Rheumatoid arthritis without rheumatoid factor, multiple sites Complete Blood Count Auto Diff 4 Months M06.09 - Rheumatoid arthritis without rheumatoid factor, multiple sites Comprehensive Met. Panel 4 Months M06.09 - Rheumatoid arthritis without rheumatoid factor, multiple sites C Reactive Protein 4 Months M06.09 - Rheumatoid arthritis without rheumatoid factor, multiple sites T Spot TB 10/25/24 M06.09 - Rheumatoid arthritis without rheumatoid factor, multiple sites Erythrocyte Sedimentation Rate 4 Months M06.09 - Rheumatoid arthritis without rheumatoid factor, multiple sites Medications: New etanercept (Enbrel SureClick) 50 mg subcut QWEEK 4 mL 5RF M06.09 - Rheumatoid arthritis without rheumatoid factor, multiple sites Coding Level of Care Code Est Pt Level 5 (83334) Complex EM visit Add On G2211 Diagnoses Rheumatoid arthritis of multiple sites with negative rheumatoid factor M06. Rheumatoid arthritis location: multiple sites Rheumatoid factor presence: without rheumatoid factor USP (current) use of immunosuppressive biologic Z79.620
[2024-10-25 13:14] VITALS: BP 150/84; PULSE 84; O2SAT 98; BMI 29.4
--- OUTSIDE RECORDS SUMMARY | 2024-10-25 13:19 | XMS_ITS | Encounter Summary ---
Author Organization [employer] Address [address] [facility] [address] [place] [address] Care Team Providers Care Terrazzo Tile Maker Name Role Phone Name, Reynold FAUST Primary Care Provider [phone] Reason for Visit * Reason Onset Date Comments Appointment Request 10/06/2024 Encounter Details Date Type Department Care Team ([facility] st Contact Info) Description 10/06/2024 Telephone [facility] [address] [place] [address] Name, MD Reynold [address] [place] [address] Appointment Request Social History Tobacco Use Types Packs/Day Years Used Date Smoking Tobacco: Former Cigarettes Smokeless Tobacco: Never Alcohol Use Standard Drinks/Week Comments Never 0 (1 standard drink = 0.6 oz pur e alcohol) Alcohol Answer Date Recorded Frequency of Alcohol Consumption Not on file 03/23/2024 Average Number of Drinks Not on file 024 Frequency of Binge Drinking Not on file 11/2023 Score 0 03/23/2024 Depression Answer Date Recorded Patient Health Questionnaire-9 Score 7 12/11/2023 Patient Health Questionnaire-9 Score 7 12/11/2023 Last PHQ-9: Questionnaire Data Not on file 0 12/11/2023 Housing Stability Answer Date Recorded What is your housing situation today? I have julieth hook 12/11/[address] you li ve. Do you have problems with any of the following? None of the above 12/11/2023 Food Insecurity Answer Date Recorded Within the past 12 months, y ou worried that your food would run out before you got money to buy more: Never True 12/11/2023 Within the past 12 months,th e food you bought just didn't last and you didn't have enough money to get more: Never True Transportation Answer Date Recorded In the past 12 months, has l ack of transportation kept you from medical appts, meetings, work or from getting things needed for daily living? No 12/11/2023 Utilities Answer Date Recorded In the past 12 months, has t he electric, gas, oil or water company threatened to shut off services in your home? No 12/11/2023 Depression Answer Date Recorded Patient Health Questionnaire-2 Score 2 12/11/2023 Comments Unknown Sex and Gender Information Value Date Recorded Sex Assigned at Female 07/21/2022 10:14 AM EDT Legal Sex Female 10:14 AM EDT Gender Identity Female 07/21/2022 10:14 AM EDT Sexual Orientation Straight 07/21/2022 10 :14 AM EDT documented as of this encounter Miscellaneous Notes * Telephone Encounter - Leeanna Paulino RN - 10/06/2024 12:03 PM EST Return TC to patient, chronic pain group rescheduled for 11/01/24 @ 9:45am * Telephone Encounter - Adolph Sanchez - 10/06/2024 10:08 AM EST Tc from pt requesting an appt for pain management because pt did cancel appt. Pt is requesting a call in regards to this appt. Contact Pt: [phone] documented in this encounter Plan of Treatment Upcoming Encounters Date Type Department Care Team (Late st Contact Info) Description 11/01/2024 9:45 AM EST Office Visit [facility] [address] [place] [phone] 11/16/2024 2:30 PM EST Office Visit [facility] [address] [place] [phone] Name, MD Reynold [address] [place] [phone] 12/09/2024 10:45 AM EDT Office Visit [facility] [address] [facility] [place] [address] Dayron Rowell MD [address] [facility] [place] [address] documented as of this encounter Visit Diagnoses Not on filedocumented in this encounter Additional Health Concerns Assessment Noted Time PHQ-9 Depression Total Score: 7 12/11/19 24 11:10 AM EDT documented as of this encounter Care Teams Terrazzo Tile Maker Relationship Specialty Start Date End Date Name, MD Reynold [address] [place] [address] PCP - General Family Medicine 12/26/15 documented as of this encounter
--- OUTSIDE RECORDS SUMMARY | 2024-10-25 13:19 | XMS_ITS | Encounter Summary ---
Author Organization [employer] Address [address] [place] [address] [address] [place] [address] Care Team Providers Care Vegetable Farmworker Name Role Phone Name, Reynold FAUST Primary Care Provider [phone] Reason for Visit * Reason Comments Med Refill Encounter Details Date Type Department Care Team ([facility] Contact Info) Description 12/22/2022 Refill [facility] [address] [place] [address] Name, MD Reynold [address] [place] [phone] Rash Social History Tobacco Use Types Packs/Day Years Used Date Smoking Tobacco: Former Cigarettes Alcohol Use Standard Drinks/Week Comments Not Currently 0 (1 standard drink = 0.6 oz pur e alcohol) Comments Unknown Sex and Gender Information Value Date Recorded Sex Assigned at Female 07/21/2022 10:14 AM EDT Legal Sex Female 10:14 AM EDT Gender Identity Female 07/21/2022 10:14 AM EDT Sexual Orientation Straight 07/21/2022 10 :14 AM EDT COVID-19 Exposure Response Date Recorded In the last 10 days, have yo u been in contact with someone who was confirmed or suspected to have Coronavirus/COVID-19? No / Unsure 12/09/2022 9:16 AM EDT documented as of this encounter Plan of Treatment Upcoming Encounters Date Type Department Care Team ([facility] Contact Info) Description 11/01/2024 9:45 AM EST Office Visit [facility] [address] [place] [phone] 11/16/2024 2:30 PM EST Office Visit [address] [address] Name, [place] [address] 12/09/2024 10:45 AM EDT Office Visit [address] [address] [place] [address] documented as of this encounter Visit Diagnoses Diagnosis Rash Rash and other nonspecific skin eruption documented in this encounter Care Teams Vegetable Farmworker Relationship Specialty Start Date End Date Name, [place] [address] PCP - General Family Medicine 12/26/15 documented as of this encounter
--- OUTSIDE RECORDS SUMMARY | 2024-10-25 13:19 | XMS_ITS | Encounter Summary ---
Author Organization [employer] [facility] Address [address] [place] [address] [address] [place] [address] Care Team Providers Care Loading Machine Operator Name Role Phone Name, Reynold FAUST Primary Care Provider [phone] Reason for Visit * Reason Comments Med Refill Encounter Details Date Type Department Care Team (Late st Contact Info) Description 03/13/2023 Refill [facility] [address] [place] [phone] NameReynold MD [address] [place] [phone] Chronic cough Social History Tobacco Use Types Packs/Day Years [...] Description 11/01/2024 9:45 AM EST Office Visit [facility] [address] [place] [phone] 11/16/2024 2:30 PM EST Office Visit [facility] [address] [place] [phone] Reynold Crowell MD [address] [place] [phone] 12/09/2024 10:45 AM EDT Office Visit [facility] [address] [place], [place] [phone] Dayron Rowell MD [address] [place] [address] documented as of this encounter Visit Diagnoses Diagnosis Chronic cough Cough documented in this encounter Care Teams Loading Machine Operator Relationship Specialty Start Date End Date Name, MD Reynold [address] [place] [phone] PCP - General Family Medicine 12/26/15 documented as of this encounter
--- OUTSIDE RECORDS SUMMARY | 2024-10-25 13:19 | XMS_ITS | Encounter Summary ---
Author Organization [employer] Address [address] [place] [address] 7 [place] [address] Care Team Providers Care Display Decorator Name Role Phone Name, Reynold FAUST Primary Care Provider [phone] Encounter Details Date Type Department Care Team (Late st Contact Info) Description 10/13/2022 Orders Only [facility] [address] [place] [address] Sadia Silva LPN Social History Tobacco Use Types Packs/Day Years Used Date Smoking Tobacco: Never Assessed Comments Unknown Sex and Gender Information Value [...] Description 11/01/2024 9:45 AM EST Office Visit [facility] [address] [place] [phone] 11/16/2024 2:30 PM EST Office Visit [address] [address] Name, MD Reynold [address] [place] [phone] 12/09/2024 10:45 AM EDT Office Visit [address] [address] Dayron Rowell MD [address] [place] [address] documented as of this encounter Procedures Procedure Name Priority Date/Time Associated Diagnosis Comments CBC WITH AUTO DIFFERENTIAL Routine 11/08/2022 10:25 AM EST HEMOGLOBIN A1C Routine 11/08/2022 10:25 AM EST LIPID PANEL, STANDARD Routine 11/08/2022 10:25 AM EST COMPREHENSIVE METABOLIC PANEL Routine 11/08/2022 10:25 AM EST documented in this encounter Results * Lipid Panel, Standard (11/08/2022 10:25 AM EST) Triglycerides 142 mg/dL [facility] Comment:Desirable Triglyceri de: less than 150 mg/dLBorderline High Triglyceride 150-199 mg/dLHigh Triglyceride: 200-499 mg/dLVery High Triglyceride: greater than or equal to 5OO mg/dL Cholesterol 225 mg/dL [facility] Comment:Desirable Cholestero l: less than 200 mg/dLBorderline High Cholesterol: 200-239 mg/dLHigh Cholesterol: greater than 239 mg/dL LDL Cholesterol Calculated 131 mg/dl [facility] Comment:Desirable LDL: less than 100 mg/dLNear Optimal/Above Optimal LDL: 110- 129 mg/dLBorderline High LDL: 130-159 mg/dLHigh LDL: 160-189 mg/dLVery High LDL: greater than or equal to 190 mg/dL HDL Cholesterol 66 mg/dL [facility] Comment:Desirable HDL: great er than 40 mg/dL Note: This HDL assay may give artificially low results in patients with liver disease. 11/08/2022 10:2 5 AM EST 11/08/2022 10:25 AM EST [facility] External Provider LAB BLO OD ORDERABLES Final Result [facility] [address] [place] [address] [phone] * (ABNORMAL) Comprehensive Metabolic Panel (11/08/2022 10:25 AM EST) Sodium 143 135 - 145 mmol/L [facility] Potassium 4.1 3.3 - 5.1 mmol/L [facility] Chloride 106 96 - 108 mmol/L [facility] Carbon Dioxide 27 22 - 29 mmol/L [facility] Anion Gap 14 12 - 20 [facility] Urea Nitrogen (BUN) 23(H) 9 - 16 mg/dL [facility] Creatinine, Serum 0.81 0.5 - 1.4 mg/dL [facility] Estimated Glomerular Filt Rate >60 [facility] Comment:NOTE: For -Am erican individuals, multiply the result by 1.210.Chronic Kidney Disease: Estimated GFR < 60 mL/min/1.30f9Vwbdxd Kidney Disease: Estimated GFR < 15 mL/min/1.73m2 Glucose 107 60 - 115 mg/dL [facility] Calcium 9.5 8.4 - 10.2 mg/dL [facility] Bilirubin, Total 0.5 0.0 - 1.0 mg/dL [facility] Aspartate Amino Transferase 24 5 - 31 U/L [facility] Alanine Aminotransferase 27 0 - 31 U/L [facility] Total Protein 7.5 6.5 - 8.0 g/dL [facility] Albumin Level 4.2 3.5 - 5.0 g/dL [facility] Alkaline Phosphatase 79 39 - 117 U/L [facility] 11/08/2022 10:2 5 AM EST 11/08/2022 10:25 AM EST [facility] External Provider LAB BLO OD ORDERABLES Final Result [facility] [address] [place] [address] [phone] * Hemoglobin A1c (11/08/2022 10:25 AM EST) Hemoglobin A1c 6.2 % [facility] Comment:Hemoglobin A1C Refer ence Range Adults: 4.8 - 6.0 % Non diabetic: < 6.0 % Goal: < 7.0 %Additional Action Suggested: > 8.0 %Note: Hemoglobin A1c results are invalid for patients with abnormal amounts of HbF. Blood transfusions may impact the HbA1c concentration in the patient sample. Estimated Average Glucose 131 mg/dL [facility] Comment:eAG = Estimated ave rage glucose which is %A1C expressed asaverage glucose, using the formula of the C5Q-CndzqvaIsysmzu Glucose study (ADAG), Diabetes Care, Vol.31,#8,2007 11/08/2022 10:2 5 AM EST 11/08/2022 10:25 AM EST [facility] External Provider LAB BLO OD ORDERABLES Final Result [facility] [address] [place] [phone] * (ABNORMAL) CBC auto differential (11/08/2022 10:25 AM EST) White Blood Count 3.9(L) 4.8 - 10.8 X10*3/uL [facility] Red Blood Count 4.47 4.20 - 5.50 X10*6/uL [facility] Hemoglobin 12.2 12.0 - 16.0 g/dl [facility] Hematocrit 38.1 37.0 - 47.0 % [facility] Mean Corpuscular Volume 85.2 80.0 - 98.0 fL [facility] Mean Corpuscular Hemoglobin 27.3 27.0 - 33.0 pg [facility] Mean Corpuscular HGB Conc 32.0 31.0 - 35.0 g/dl [facility] Red Cell Distribution Width 14.4 11.0 - 16.0 % [facility] Platelet Count 178 160 - 400 X10*3/uL [facility] Mean Platelet Volume 11.4 9.4 - 12.3 fL [facility] Neutrophils Percent Auto 65.0 45 - 73 % [facility] Imm Gran Pct Auto 0.3 0.0 - 0.4 % [facility] Lymphocytes Percent Auto 22.4 20 - 40 % [facility] Monocytes Percent Auto 8.7 2 - 11 % [facility] Eosinophils Percent Auto 2.8 0 - 4 % [facility] Basophils Percent Auto 0.8 0 - 2 % [facility] NRBC Pct Auto 0.0 0.0 - 0.2 /100WBC [facility] Neutrophils Absolute Auto 2.6 2.0 - 8.3 x10*3/uL [facility] Imm Gran Abs Auto 0.01 0.00 - 0.03 X10*3/uL [facility] Lymphocytes Absolute Auto 0.9(L) 1.2 - 4.9 X10*3/uL [facility] Monocytes Absolute Auto 0.3 0.1 - 1.2 X10*3/uL [facility] Eosinophils Absolute Auto 0.1 0.0 - 0.4 X10*3/uL [facility] Basophils Absolute Auto 0.0 0.0 - 0.2 X10*3/uL [facility] NRBC Abs Auto 0.000 0.0 - 0.012 X10*3/uL [facility] 11/08/2022 10:2 5 AM EST 11/08/2022 10:25 AM EST [facility] External Provider LAB BLO OD ORDERABLES Final Result Performing Organization Address City/State/[facility] Co de Phone Number [facility] [address] [place] [address] [phone] documented in this encounter Visit Diagnoses Not on filedocumented in this encounter Care Teams Display Decorator Relationship Specialty Start Date End Date Name, MD Reynold [address] [place] [phone] PCP - General Family Medicine 12/26/15 documented as of this encounter
--- OUTSIDE RECORDS SUMMARY | 2024-10-25 13:19 | XMS_ITS | Encounter Summary ---
Author Organization [employer] Address [address] [facility] 7 [place] [address] Care Team Providers Care Needle Maker Name Role Phone Name, Reynold FAUST Primary Care Provider [phone] Reason for Visit * Reason Onset Date Comments Med Refill Reschedule [employer] COMPL[employer]ANCE RV she cancelled 02/02/23 06/05/20 Encounter Details Date Type Department Care Team (Late st Contact Info) Description 06/05/2023 Refill [facility] [address] [place] [address] Name, MD Reynold [address] [place] [address] Chronic pain syndrome Social History Tobacco Use Types Packs/Day Years [...] Telephone Encounter - Leeanna Paulino RN - 06/08/2023 10:55 AM EDT Pt was cancelled [employer] COMPLIANCE RV on 02/02/23 and has not rescheduled. TC to pt, no answer. L/M requesting she call to reschedule her [employer]OR COMPLIANCE RV she cancelled. documented in this encounter Plan of Treatment Upcoming Encounters Date Type Department Care Team (Late st Contact Info) Description 11/01/2024 9:45 AM EST Office Visit [address] [address] 11/16/2024 2:30 PM EST Office Visit [address] [address] Name, MD Reynold [address] [place] [phone] 12/09/2024 10:45 AM EDT Office Visit [address] [address] Dayron Rowell MD [address] [place] [phone] documented as of this encounter Visit Diagnoses Diagnosis Chronic pain syndrome documented in this encounter Care Teams Needle Maker Relationship Specialty Start Date End Date NameReynold MD [address] [place] [phone] PCP - General Family Medicine 12/26/15 documented as of this encounter
--- OUTSIDE RECORDS SUMMARY | 2024-10-25 13:19 | XMS_ITS | Encounter Summary ---
Author Organization [employer] Address [address] [place] [address] 7 [place] [address] Care Team Providers Care Agency Development Manager Name Role Phone Name, Reynold FAUST Primary Care Provider [phone] Encounter Details Date Type Department Care Team (Latest Contact Info) Description 10/10/2020 Abstract [facility] Dental, Provider, DDS Social History Tobacco Use Types Packs/Day Years [...] Description 11/01/2024 9:45 AM EST Office Visit [address] [address] 11/16/2024 2:30 PM EST Office Visit [address] [address] Name, MD Reynold [address] [place] [address] 12/09/2024 10:45 AM EDT Office Visit [address] [address] Dayron Rowell MD [address] [place] [phone] documented as of this encounter Visit Diagnoses Not on filedocumented in this encounter Care Teams Agency Development Manager Relationship Specialty Start Date End Date Name, MD Reynold [address] [place] [address] PCP - General Family Medicine 12/26/15 documented as of this encounter
--- OUTSIDE RECORDS SUMMARY | 2024-10-25 13:19 | XMS_ITS | Clinical Summary ---
Author Organization 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 09/21/19 22 Active Blood Pressure kit Use twice a day 1 kit 12/11/19 24 Active dexlansoprazole (Dexilant) [address] capsule Take 1 capsule by mouth in the morning. Active famotidine (Pepcid) 40 MG tablet Take 40 mg by mouth at bedtime. 11/17/19 24 Active QUEtiapine (SEROquel) 50 MG tablet Take 50 mg by mouth 2 times daily. Active cholecalciferol (Vitamin D-3) 50 MCG (2000 UT) capsule 50 mcg. 11/16/19 24 Active Ventolin HFA 108 (90 Base) MCG/ACT inhalerIndicatio ns:Chronic cough INHALE 2 PUFFS EVERY 6 HOURS IF NEEDED FOR WHEEZING. 18 g 2 12/28/19 24 Active calcitriol (Rocaltrol) 0.25 MCG capsule Take 0.25 mcg by mouth Once per day. 12/29/19 24 Active nortriptyline (Pamelor) 10 MG capsule Take 10 mg by mouth at bedtime. 01/18/20 24 Active nystatin (Mycostatin) cream Apply 1 Application. topically 2 times daily. 12/03/19 24 Active celecoxib (CeleBREX) 200 MG capsule TAKE 1 CAPSULE BY MOUTH EVERY DAY 30 capsule 08/22/20 24 Active cloNIDine (Catapres) 0.2 MG tabletIndication s:Essential hypertension TAKE 1 TABLET BY MOUTH EVERY DAY 90 tablet 1 09/06/20 24 Active hydrocortisone 1 % creamIndications :Rash APPLY TO AFFECTED AREA TWICE A DAY 56 g 3 09/27/19 25 Active cloNIDine (Catapres) 0.1 MG tablet TAKE 1 TAB BY MOUTH IN THE MORNING AND 2 TABLETS AT BEDTIME 270 tablet 10/19/19 25 Active traMADol (Ultram) 50 MG tabletIndication s:Chronic pain syndrome TAKE 1 TABLET BY MOUTH IN THE MORNING, AT NOON AND AT BEDTIME IF NEEDED FOR SEVERE PAIN 84 tablet 10/21/19 25 025 Active hydrocortisone 1 % creamIndications :Rash APPLY TO AFFECTED AREA TWICE A DAY 56 g 3 06/10/20 24 025 Discontinued cloNIDine (Catapres) 0.1 MG tablet TAKE 1 TAB BY MOUTH IN THE MORNING AND 2 TABLETS AT BEDTIME 270 tablet 07/19/20 24 025 Discontinued traMADol (Ultram) 50 MG tabletIndication s:Chronic pain syndrome TAKE 1 TABLET BY MOUTH IN THE MORNING, AT NOON AND AT BEDTIME IF NEEDED FOR SEVERE PAIN 84 tablet 09/23/19 25 025 Discontinued Active Problems Problem Noted Date Diagnosed Date longterm (current) use of opiate analgesic 07/22 Overview (08/02/2024): Dx: Rx: Last [employer] agreement: Tier II (visit every 3 months) Additional considerations: Timeline: GAGANDEEP positive 12/10/2023 Chronic cough 12/10/2023 Esophageal dysphagia 12/10/2023 Overview (12/11/2023): [address] [address] Operative Note Signed Patient: Cece Espinosa MR#: [id number] : 1965 Acct:[id number] Age/Sex: 58 / F Loc: [facility] Attending Dr: Kylee Mejias MD cc: Kylee Mejias MD; Name,Reynold FAUST Operative Note Operative Note Date of Service: 11/19/23 Narrative: Procedure Description: EGD Indication: dysphagia Anesthesia: MAC FLEXIBLE TRANSORAL UPPER GASTROINTESTINAL ENDOSCOPY UPPER ENDOSCOPY Consent: Indications for the procedure and potential complications of bleeding, perforation, reaction to medications and missed diagnosis were discussed with the patient and informed consent was obtained. Instrument: Olympus GIF H 190 J mid size upper endoscope Monitoring: Vital signs and clinical assessment, continuous EKG monitoring, Pulse oximetry, Carbon Dioxide monitoring and blood pressure monitoring were done throughout the procedure. Procedure: The patient was placed in the left lateral decubitis position and pre-procedure medications were administered and a bite block was placed. The endoscope was inserted into the mouth and advanced under direct vision to the third part of duodenum. A careful inspection was made as the upper endoscope was withdrawn including a retroflexed examination of the proximal stomach; Findings and interventions are described below. Findings: Larynx:normal Esophagus: GE junction at 32 cm, diaphragm hiatus at 34 cm, Schatzki ring noted. Balloon dilation done to 20 mm at lower esophagus and upper esophagus with small tear noted at GEJ junction. Stomach: Normal mucosa. Grade 3 flap valve on retroflexed examination of the cardia. Duodenum: Normal bulb and descending duodenum, Intervention: balloon dilation Impression/Findings: patulous LES schatzki ring small hiatal hernia PLAN: cont with dexilant, if ongoing sx then change PPI if despite that sx persist then manometry or CR reflux precautions Dictated By: Kylee Mejias MD Signed By: <Electronically signed by Kylee Mejias MD> 11/19/23 1341 Encounter for testing for latent tuberculosis in fection 12/10/2023 GERD (gastroesophageal reflux disease) 4 Hearing loss 12/10/2023 Polyarthralgia 12/10/2023 Locking knee 12/10/2023 Osteoarthritis of right knee 12/10/2023 Assessment & Plan (08/02/2024 1:55 PM EST): Patient participated in group to full extent that she desired Utox and pill count as expected Continue to use alternative and non-pharm modalities of pain relief, along with prescribed medications Assessment & Plan (05/31/2024 2:02 PM EDT): Patient participated in group to full extent that she desired Utox and pill count as expected Continue to use alternative and non-pharm modalities of pain relief, along with prescribed medications Pancytopenia 12/10/2023 Pulmonary nodules 12/10/2023 Radiation fibrosis of lung 12/10/2023 Renal insufficiency 12/10/2023 Right knee meniscal tear 12/10/2023 Hepatic steatosis 12/10/2023 Pain, dental 12/01/2023 Rheumatoid arthritis 11/13/2022 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 Helicobacter pylori gastritis 08/26/2018 Joint pain 10/12/2017 Swelling of right hand 10/12/2017 Thrombocytopenia 07/29/2017 Diarrhea of presumed infectious origin 7 Obesity (BMI 30-39.9) 08/11/2016 Axillary hidradenitis suppurativa 07/15/2016 Prediabetes 07/10/2016 Essential hypertension 07/10/2016 Steatosis of liver 07/10/2016 Chronic low back pain 07/10/2016 Hip pain 07/10/2016 Right knee pain 07/10/2016 Carpal tunnel syndrome 06/29/2012 Mood disorder 06/16/2012 Irritable bowel syndrome 03/25/2012 Allergic rhinitis 03/04/2012 Depressive disorder 03/04/2012 Pure hypercholesterolemia 03/04/2012 Esophagitis 2012 Osteoporosis 11/23/2009 Resolved Problems Problem Noted Date Diagnosed Date Resolved Date Abnormal mammogram 12/10/2023 Abnormal MRI, breast 12/10/2023 024 ALBERT (acute kidney injury) 12/10/2023 Cutaneous fungal infection 12/10/2023 0 12/11/2023 Bronchitis 12/10/2023 12/11/2023 H. 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 11/02/2019 12/11/2023 Ductal carcinoma in situ (DC IS) of left breast 11/02/2019 12/11/2023 Nausea and vomiting 07/13/2017 12/11/19 24 Hidradenitis 07/10/2016 12/11/2023 Backache 03/04/2012 12/11/2023 Acute gastritis 2012 05/31/2024 Encounters Date Type Department Care Team Description 10/19/2024 Refill [facility] [address] [place] [address] Reynold Crowell MD Chronic pain syndrome 10/19/2024 Refill [facility] [address] [place] [address] Reynold Crowell MD 10/06/2024 Orders Only GENERIC EXTERNAL DATA DEPARTMENT Provider, Generic External Data 10/06/2024 Telephone [facility] [address] [place] [address] Reynold Crowell MD Appointment Request 09/27/2024 Refill [facility] [address] [place] [address] Reynold Crowell MD Rash 09/23/2024 Refill [facility] [address] [place] [address] Reynold Crowell MD Chronic pain syndrome 09/13/2024 Telephone [facility] [address] [place] [phone] Tommy Malave [place] feb recalls 09/06/2024 Orders Only GENERIC EXTERNAL DATA DEPARTMENT Provider, Generic External Data 09/03/2024 Refill [facility] [address] [place] [phone] Reynold Crowell MD Essential hypertension 08/25/2024 Refill [facility] [address] [place] [address] Reynold Crowell MD Chronic pain syndrome 08/21/2024 Refill [facility] [address] [place] [address] Reynold Crowell MD 08/16/2024 Telephone [facility] [address] [place] [phone] Reynold Crowell MD Nurse Triage 08/02/2024 9:45 AM EST Office Visit [facility] [address] [place] [phone] Debo Owusu MD Primary osteoarthritis of right knee (Primary Dx); Rheumatoid arthritis involving multiple sites, unspecified whether rheumatoid factor present (CMS/HCC); 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 08/02/2024 Travel 07/27/2024 Refill [facility] [address] [place] [phone] Name, MD Reynold Chronic pain syndrome from Last 3 Months Immunizations Name Administration Dates Next Due Hep A, Adult 07/29/2017 Hep B, adult 07/29/2017 MMR 11/04/2000 Social History Tobacco Use Types Packs/Day Years Used Date Smoking Tobacco: Former Cigarettes Smokeless Tobacco: Never Tobacco Cessation:Counseling Given: Not Answered Alcohol Use Standard Drinks/Week Comments Never 0 [...] Orientation Straight 07/21/2022 10 :14 AM EDT Last Filed Vital Signs Vital Sign Reading Time Taken Comments Blood Pressure 153/94 06/27/2024 1:31 PM EDT Pulse 94 06/27/2024 1:24 PM EDT Temperature 36.1 ??C (96.9 ??F) 03/23/2024 1 0:24 AM EDT Respiratory Rate 18 06/27/2024 1:24 PM EDT Oxygen Saturation 98% 06/27/2024 1:24 PM EDT Inhaled Oxygen Concentration - - Weight 69.8 kg (153 lb 12.8 oz) 06/27/2024 1:24 PM EDT Height 149.9 cm (4' 11 ) 06/27/2024 1:24 PM EDT Body Mass Index 31.06 06/27/2024 1:24 PM EDT Plan of Treatment Upcoming Encounters Date Type Department Care Team (Late st Contact Info) Description 11/01/2024 9:45 AM EST Office Visit [address] [address] 11/16/2024 2:30 PM EST Office Visit [address] [address] Name, MD Reynold [address] [place] [phone] 12/09/2024 10:45 AM EDT Office Visit [address] [address] Dayron Rowell MD [address] [place] [phone] Health Maintenance Due Date Last Done Comments CT Colonography 1965 Colonoscopy 1965 Colorectal Cancer Screening 1965 FIT DNA/Cologuard 1965 FIT 1965 FOBT 1965 HIV Screening 1965 Sigmoidoscopy 1965 DTaP/Tdap/Td Vaccines (1 - Tdap) 02/25/1984 Pneumococcal Vaccine: 50+ Years (1 of 1 - PCV) 2015 Zoster Vaccines (1 of 2) 2015 Hepatitis B Vaccines (2 of 3 - 19+ 3-dose series) 08/26/2017 07/29/2017 Hepatitis A Vaccines (2 of 2 - Risk 2-dose series) 01/26/2018 07/29/2017 Dental Prophylaxis 04/10/2021 10/10/2020 COVID-19 Vaccine ( - season) 2024 Influenza Vaccine (#1) 2024 Dental Oral Exam 06/03/2024 12/01/2023, , 07/06/2019 Dental X-Ray: Bitewings 12/01/2024 12/01/19, 10/10/2020, 07/06/2019 Depression Screening 12/10/2024 12/11/2023, 12/11/19 SDOH Screening 12/10/2024 12/11/2023 Diabetes: Hemoglobin A1C 12/11/2024 12/12/2023, 10/22 Alcohol/Substance Use Screening 03/23/2025 03/23/2024 Pap Smear 07/30/2025 07/30/2022 Tobacco Screening 08/02/2025 08/02/2024 Mammogram 04/13/2026 04/13/2024, 03/22, 11/05/2023, Additional history exists Dental X-Ray: Full Mouth 12/01/2026 024, 10/29/2023, 07/06/2019 Cervical Cancer Screening 07/30/2027 HPV/Cotest 07/30/2027 07/30/2022, 11/0 05/2022, 10/19/2019 Lipid Panel 05/14/2029 05/14/2024, 11/08/2022 RSV Patients and Patients Aged 60 years or older (1 - 1-dose 75+ series) 02/25/2040 Hepatitis C Screening Completed 01/02/2023 HIB Vaccines Aged Out No longer eligi ble based on patient's age to complete this topic HPV Vaccines Aged Out No longer eligi ble based on patient's age to complete this topic IPV Vaccines Aged Out No longer eligi ble based on patient's age to complete this topic Meningococcal Vaccine Aged Out No aron martina eligible based on patient's age to complete this topic RSV under 20 months Aged Out No longe r eligible based on patient's age to complete this topic Rotavirus Vaccines Aged Out No longer eligible based on patient's age to complete this topic Procedures Procedure Name Priority Date/Time Associated Diagnosis Comments COMPREHENSIVE METABOLIC PANEL Routine 10/06/2024 4:00 PM EST CBC WITH AUTO DIFFERENTIAL Routine 10/06/2024 4:00 PM EST HEMATOXYLIN AND EOSIN STAIN Routine 09/06/2024 1:35 PM EST POCT ANIKA-14 URINE DRUG SCREEN Routine 08/02/2024 2:15 PM EST longterm (current) use of opiate analgesic LIPID PANEL, STANDARD Routine 05/14/2024 9:34 AM EDT Essential hypertension BI MAMMOGRAM DIAGNOSTIC TOMOSYNTHESIS RIGHT Routine 04/13/2024 2:10 PM EDT HEMOGLOBIN A1C Routine 12/12/2023 10:31 AM EDT Prediabetes DIAGNOSTIC - DIAGNOSTIC IMAGING - INTRAORAL - COMPREHENSIVE SERIES OF RADIOGRAPHIC IMAGES Routine 12/01/2023 8:00 AM EDT Pain, dental Full coverage crown needed for tooth at risk for fracture Dental caries PERIODIC ORAL EVALUATION - ESTABLISHED PATIENT Routine 12/01/2023 8:00 AM EDT Pain, dental Full coverage crown needed for tooth at risk for fracture Dental caries HEPATITIS PANEL, GENERAL Routine 01/02/2023 3:20 PM EDT HPV GENOTYPES 16,18/45 Routine 07/30/2022 9:52 AM EST THINPREP IMAGING PAP AND HPV MRNA E6/E7 WITH REFLEX TO HPV 16,18/45 Routine 07/30/2022 9:52 AM EST PROPHYLAXIS - ADULT Routine 10/10/2020 1 2:00 AM EST from Last 3 Months or Most Recently Relevant to Health Maintenance Results * (ABNORMAL) CBC auto differential (10/06/2024 4:00 PM EST) White Blood Count 5.5 4.8 - 10.8 X10*3/uL [facility] Red Blood Count 4.42 4.20 - 5.50 X10*6/uL [facility] Hemoglobin 12.2 12.0 - 16.0 g/dl [facility] Hematocrit 37.6 37.0 - 47.0 % [facility] Mean Corpuscular Volume 85.1 80.0 - 98.0 fL [facility] Mean Corpuscular Hemoglobin 27.6 27.0 - 33.0 pg [facility] Mean Corpuscular HGB Conc 32.4 31.0 - 35.0 g/dl [facility] Red Cell Distribution Width 14.9 11.0 - 16.0 % [facility] Platelet Count 179 160 - 400 X10*3/uL [facility] Mean Platelet Volume 11.4 9.4 - 12.3 fL [facility] Neutrophils Percent Auto 71.5 45 - 73 % [facility] Imm Gran Pct Auto 0.4 0.0 - 0.4 % [facility] Lymphocytes Percent Auto 17.9(L) 20 - 40 % [facility] Monocytes Percent Auto 8.2 2 - 11 % [facility] Eosinophils Percent Auto 1.6 0 - 4 % [facility] Basophils Percent Auto 0.4 0 - 2 % [facility] NRBC Pct Auto 0.0 0.0 - 0.2 /100WBC [facility] Neutrophils Absolute Auto 4.0 2.0 - 8.3 x10*3/uL [facility] Imm Gran Abs Auto 0.02 0.00 - 0.03 X10*3/uL [facility] Lymphocytes Absolute Auto 1.0(L) 1.2 - 4.9 X10*3/uL [facility] Monocytes Absolute Auto 0.5 0.1 - 1.2 X10*3/uL [facility] Eosinophils Absolute Auto 0.1 0.0 - 0.4 X10*3/uL [facility] Basophils Absolute Auto 0.0 0.0 - 0.2 X10*3/uL [facility] NRBC Abs Auto 0.000 0.0 - 0.012 X10*3/uL [facility] 10/06/2024 4:00 PM EST 10/06/2024 4:00 PM EST us Generic External Data Provider LAB BLOOD ORDERAB LES Final Result [facility] [address], [place] [phone] * (ABNORMAL) Comprehensive Metabolic Panel (10/06/2024 4:00 PM EST) Sodium 142 135 - 145 mmol/L [facility] Potassium 3.7 3.3 - 5.1 mmol/L [facility] Chloride 108 96 - 108 mmol/L [facility] Carbon Dioxide 27 22 - 29 mmol/L [facility] Anion Gap 11(L) 12 - 20 [facility] Urea Nitrogen (BUN) 21(H) 9 - 16 mg/dL [facility] Creatinine, Serum 0.95 0.5 - 1.4 mg/dL [facility] Estimated Glomerular Filt Rate >60 [facility] Comment:Chronic Kidney Disea se: Estimated GFR < 60 mL/min/1.15f2Mawekb Kidney Disease: Estimated GFR < 15 mL/min/1.73m2 Glucose 96 60 - 115 mg/dL [facility] Calcium 9.4 8.4 - 10.2 mg/dL [facility] Bilirubin, Total 0.3 0.0 - 1.0 mg/dL [facility] Aspartate Amino Transferase 41(H) 5 - 31 U/L [facility] Alanine Aminotransferase 37(H) 0 - 31 U/L [facility] Total Protein 8.5(H) 6.5 - 8.0 g/dL [facility] Albumin Level 4.2 3.5 - 5.0 g/dL [facility] Alkaline Phosphatase 78 39 - 117 U/L [facility] 10/06/2024 4:00 PM EST 10/06/2024 4:00 PM EST us Generic External Data Provider LAB BLOOD ORDERAB LES Final Result Performing Organization Address City/State/[facility] Co de Phone Number [facility] [address] [place] [address] [phone] * Hematoxylin and Eosin Stain (09/06/2024 1:35 PM EST) 09/06/2024 1:35 PM EST 09/06/2024 2:10 PM EST Narrative [facility] - 09/08/2024 3:57 PM EST ----- ------- Name: Cece Espinosa ? Age/Sex: 59/F ? : 1965 Unit#: [id number] ?? Attend Dr: Kylee Mejias MD ?Re09/06/24 ?Status: DEP SDC ? Location: [facility] ?Disch: ? ----- ------- SPEC : [id number] ? RECD: 09/06/24 ? STATUS: ??SOUT ? REQ NUM: [id number] ? LEVI: 09/06/24 ? SUBM DR: Kylee Mejias MD ? ENTERED: ??09/06/24 ?SP TYPE: Surgical ? OTHR DR: Reynold Crowell MD ? ORDERED: ??HE Stain/9, Gross Micro L4/4, IHC, Special st. 2, H. pylori, AB/PAS/2 ? Diagnosis ?? A. ??Stomach, biopsy: ??Antral-type and oxyntic mucosa with mild chronic inactive ?? inflammation; no Helicobacter organisms seen. ? B. ??GE junction, biopsy: ?- Cardiac-type mucosa with mild chronic inactive inflammation; no intestinal ?? metaplasia seen. ?- Active esophagitis (maximum eosinophil count 12 per high powered field). ? C. ??Esophagus, distal, biopsy: ??Squamous epithelium within normal limits; no inflammation ?? seen. ? D. ??Esophagus, proximal, biopsy: ??Squamous epithelium within normal limits; no ?? inflammation seen. ?Clinical History Pre-Op Dx: ??Dysphagia, unspecified Post-Op Dx: Schatzki ring, hiatal hernia ?Microscopic Description A-D. ??Microscopic sections examined. ??No metaplastic changes are seen, supported by AB/PAS stains (A and B); no Helicobacter organisms are seen, supported by H. pylori immunostain (A). ? Material Received ?? A. Stomach bx's ?? B. GE junction bx's ?? C. Distal esophagus bx's ?? D. Proximal esophagus bx's ? Gross Description Received in four parts. Part A: ??Received in formalin labeled ?stomach? are 3 keane and keane- pink irregular tissue fragments ranging from 0.25-0.3 cm, submitted in toto in a cassette labeled A. Part B: ??Received in formalin labeled ?GE junction bx's? are 3 wynne- keane irregular tissue fragments ranging from 0.1-0.25 cm, submitted in toto in a cassette labeled B. ? CONTINUED ON NEXT PAGE ----- ------- Name: Cece Espinosa ? Age/Sex: 59/F ? : 1965 Unit#: [id number] ?? Attend Dr: Kylee Mejias MD ?Re09/06/24 ?Status: DEP SDC ? Location: [facility] ?Disch: ? ----- ------- SPEC : [id number] ? RECD: 09/06/24 ? STATUS: ??SOUT ? REQ NUM: [id number] ? LEVI: 09/06/24 ? SUBM DR: Kylee Mejias MD ? ENTERED: ??09/06/24 ?SP TYPE: Surgical ? OTHR DR: Reynold Crowell MD ? ORDERED: ??HE Stain/9, Gross Micro L4/4, IHC, Special st. 2, H. pylori, AB/PAS/2 ? Gross Description ?(Continued) Part C: ??Received in formalin labeled ?distal esophagus bx's? are 2 wynne-white irregular tissue fragments ranging from 0.2-0.25 cm, submitted in toto in a cassette labeled C. Part D: ??Received in formalin labeled ?proximal esophagus bx's? are 2 wynne-keane irregular and rectangular tissue fragments measuring 0.3 and 0.4 cm, submitted in toto in a cassette labeled D. ??CEDS Special studies ordered and performed: Immunostain for H. pylori on A; AB/PAS stains on A and B Copies To: ?? Kylee Mejias MD ?? [facility] ?? [address] ?? [place] [address] ?? [phone] ?? Reynold Crowell MD ?? [address] ?? [place] [address] ?? [phone] ----- ------- Signed (signature on file) Warren Klein MD 09/08/24 1557 ? ----- ------- ? END OF REPORT ? us Generic External Data Provider LAB BLOOD ORDERAB LES Final Result [facility] [address] [place] [phone] * POCT ANIKA-14 Urine Drug Screen (08/02/2024 2:15 PM EST) Pathologist [facility] Benzodiazepines Screen, Urine Positive Urine Urine specimen obtained by clean catch procedure / Unknown 08/02/2024 2:15 PM EST Narrative Susy Cervantes, MARCELINO - 08/02/2024 2:15 PM EST .UTOX cup Lot#[id number] Exp. 08/27/2025 Internal Pass Control UTOX was negative for FENT us Debo Owsuu MD POINT OF CARE TEST ENTER/EDIT ORDERABLES Final Result * (ABNORMAL) Lipid Panel, Standard (05/14/2024 9:34 AM EDT) Pathologist [facility] Triglycerides 132 <150 mg/dL [facility] Comment:Desirable Triglyceri de: less than 150 mg/dLBorderline High Triglyceride 150-199 mg/dLHigh Triglyceride: 200-499 mg/dLVery High Triglyceride: greater than or equal to 5OO mg/dL Cholesterol 218(H) <200 mg/dL [facility] Comment:Desirable Cholestero l: less than 200 mg/dLBorderline High Cholesterol: 200-239 mg/dLHigh Cholesterol: greater than 239 mg/dL LDL Cholesterol Calculated 130(H) <100 mg/dL [facility] Comment:Desirable LDL: less than 100 mg/dLNear Optimal/Above Optimal LDL: 110- 129 mg/dLBorderline High LDL: 130-159 mg/dLHigh LDL: 160-189 mg/dLVery High LDL: greater than or equal to 190 mg/dL HDL Cholesterol 62 >40 mg/dL [facility] Comment:Desirable HDL: great er than 40 mg/dL Note: This HDL assay may give artificially low results in patients with liver disease. Blood Venous blood specimen / Unknown 05/14/2024 9:34 AM EDT 05/14/2024 9:34 AM EDT us Reynold Name MD LAB BLOOD ORDERABLES Final Resul t [facility] [address] [place] [phone] * BI Mammogram Diagnostic Tomosynthesis Right (04/13/2024 2:10 PM EDT) Anatomical Region Laterality Modality Breast Right Mammography 04/13/2024 2:10 PM EDT Narrative 04/13/2024 3:18 PM EDT ? [facility] ? [address] [facility] ?[place] [address] ? Mammography Report ? Signed ? Patient: Iasías Maurer,Ceec ?MR#: [id number] ?? [id number] ? : 1965 ?Acct:[id number] ? Age/Sex: 59 / F ?ADM Date: 07/24/24 ? Loc: HO.MAMMO ? Attending Dr: Phillip Acuna MD ? Ordering Physician: Phillip Acuna MD ?Results: 2Beni ?? gn Findings ? Date of Service: 04/13/24 ?Follow Up: 1 Year From Orig ?? inal Mammogram ? Procedure(s): MM tomosynthesis diagnostic RT ?? Accession Number(s): [id number] ? cc: Phillip Acuna MD; Name,Reynold FAUST ? EXAMINATION: ?? MM DIAGNOSTIC DIGITAL BREAST TOMOSYNTHESIS, RIGHT ?? US BREAST LIMITED, RIGHT ? MAMMOGRAPHY: ?? CLINICAL INFORMATION: ? Patient complaining of palpable fullness in the lateral upper right ?? breast. 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 On the right breast, most recent surgery was on 10/03/2019. ? COMPARISON: ?? Mammography: 11/05/2023, 10/28/2022, 10/24/2021, 03/23/2021, ?? 10/03/2019, 06/01/2019 ? TECHNIQUE: ?? Digital right breast tomosynthesis is performed in both the ?? craniocaudal and mediolateral oblique views along with computer-aided ?? detection (CAD). Synthesized 2D images are generated from the ?? tomosynthesis. ? FINDINGS: ?? There are scattered areas of fibroglandular density (ACR BI-RADS breast ?? composition Category b). ? There is similar scarring in the upper outer right breast, and axilla ?? from prior lumpectomy with axillary dissection. The overall parenchymal ?? and trabecular pattern is stable from prior exams, with similar mild ?? skin thickening and superolateral retractile scarring. No evidence of ?? recurrent disease. No adenopathy. No suspicious masses or suspicious ?? calcifications. ? No mammographic abnormality evident in the upper outer right breast ?? otherwise to explain palpable fullness. ? ULTRASOUND: ?? CLINICAL INFORMATION: ?? As above. ? COMPARISON: ?? None contributory. ? TECHNIQUE: ?? Targeted sonographic right breast evaluation was performed using a high ?? frequency linear transducer. Attention was given to the upper outer ?? quadrant in the region of palpable fullness. Selected archived ?? documentation. ? FINDINGS: ? RIGHT BREAST: ?? There is no mass, abnormal shadowing, abnormal lymphadenopathy, cystic ?? abnormality, or other sonographic abnormality in the upper outer right ?? breast. Only normal subcutaneous fat is evident. ? There is no sonographic abnormality in the region of palpable fullness. ? MM/MM tomosynthesis diagnostic RT ?? IMPRESSION: ?? There is no findings suspicious for malignancy in the right breast. ? There are stable post therapeutic changes as described, without ?? evidence of recurrence of disease. ? Region of palpable fullness in the upper outer right breast shows no ?? mammographic or sonographic abnormality or correlate. Only normal ?? subcutaneous fat is seen in this region. Recommend clinical management. ? Otherwise, recommend resuming routine annual screening mammography. ? OVERALL ASSESSMENT: ?? Mammography: BI-RADS 2 - Benign Findings ?? Ultrasound: BI-RADS 2 - Benign Findings ? RECOMMENDATION: ?? 1. Patient should be managed based on the clinical impression. ?2. ?? Otherwise, routine annual screening mammography. ? This patient's information was entered into a reminder system with a ?? target due date for their next mammogram. ? Dictated By: ?Ihsan Carr MD ? Signed By: ?<Electronically signed by Ihsan Carr MD in OV> ?04/13/24 1513 ? DD/ 1410 ? TD/TT: ? Transit Planner: ? Procedure Note Sukhi, Image - 04/13/2024 [facility] [address] [place] [address] Dr. Clark, ANISA [address] Mammography Report Signed Patient: Cece EspinosaMR#: [id number] : 1965Acct:[id number] Age/Sex: 59 / FADM Date: 04/13/24 Loc: HO.MAMMO Attending Dr: Phillip Acuna MD Ordering Physician: Phillip Acuna MDResults: 2Beni gn Findings Date of Service: 04/13/24Follow Up: 1 Year From Orig inal Mammogram Procedure(s): MM tomosynthesis diagnostic RT Accession Number(s): [id number] cc: Phillip Acuna MD; Name,Reynold FAUST EXAMINATION: MM DIAGNOSTIC DIGITAL BREAST TOMOSYNTHESIS, RIGHT US BREAST LIMITED, RIGHT MAMMOGRAPHY: CLINICAL INFORMATION: Patient complaining of palpable fullness in the lateral upper right breast. Patient has history of bilateral lumpectomies for bilateral DCIS. On the right breast, most recent surgery was on 10/03/2019. COMPARISON: Mammography: 11/05/2023, 10/28/2022, 10/24/2021, 03/23/2021, 10/03/2019, 06/01/2019 TECHNIQUE: Digital right breast tomosynthesis is performed in both the craniocaudal and mediolateral oblique views along with computer-aided detection (CAD). Synthesized 2D images are generated from the tomosynthesis. FINDINGS: There are scattered areas of fibroglandular density (ACR BI-RADS breast composition Category b). There is similar scarring in the upper outer right breast, and axilla from prior lumpectomy with axillary dissection. The overall parenchymal and trabecular pattern is stable from prior exams, with similar mild skin thickening and superolateral retractile scarring. No evidence of recurrent disease. No adenopathy. No suspicious masses or suspicious calcifications. No mammographic abnormality evident in the upper outer right breast otherwise to explain palpable fullness. ULTRASOUND: CLINICAL INFORMATION: As above. COMPARISON: None contributory. TECHNIQUE: Targeted sonographic right breast evaluation was performed using a high frequency linear transducer. Attention was given to the upper outer quadrant in the region of palpable fullness. Selected archived documentation. FINDINGS: RIGHT BREAST: There is no mass, abnormal shadowing, abnormal lymphadenopathy, cystic abnormality, or other sonographic abnormality in the upper outer right breast. Only normal subcutaneous fat is evident. There is no sonographic abnormality in the region of palpable fullness. MM/MM tomosynthesis diagnostic RT IMPRESSION: There is no findings suspicious for malignancy in the right breast. There are stable post therapeutic changes as described, without evidence of recurrence of disease. Region of palpable fullness in the upper outer right breast shows no mammographic or sonographic abnormality or correlate. Only normal subcutaneous fat is seen in this region. Recommend clinical management. Otherwise, recommend resuming routine annual screening mammography. OVERALL ASSESSMENT: Mammography: BI-RADS 2 - Benign Findings Ultrasound: BI-RADS 2 - Benign Findings RECOMMENDATION: 1. Patient should be managed based on the clinical impression. 2. Otherwise, routine annual screening mammography. This patient's information was entered into a reminder system with a target due date for their next mammogram. Dictated By: Ihsan Carr MD Signed By: <Electronically signed by Ihsan Carr MD in OV> 04/13/24 1513 DD/ 1410 TD/TT: Transit Planner: us [facility] External Provider IMG BI PROCEDURES Final Result * (ABNORMAL) Hemoglobin A1c (12/12/2023 10:31 AM EDT) Hemoglobin A1c 6.1(H) <6.0 % [facility] Comment:Hemoglobin A1C Refer ence Range Adults: 4.8 - 6.0 % Non diabetic: < 6.0 % Goal: < 7.0 %Additional Action Suggested: > 8.0 %Note: Hemoglobin A1c results are invalid for patients with abnormal amounts of HbF. Blood transfusions may impact the HbA1c concentration in the patient sample. Estimated Average Glucose 128 mg/dL [facility] Comment:eAG = Estimated ave rage glucose which is %A1C expressed asaverage glucose, using the formula of the [id number] Glucose study (ADAG), Diabetes Care, Vol.31,#8,Apr. 2007 Blood Venous blood specimen / Unknown 12/12/2023 10:31 AM EDT 12/12/2023 10:32 AM EDT Reynold Crowell MD LAB BLOOD ORDERABLES Final Resul t Performing Organization Address [facility] Co de Phone Number [facility] [address] [place] [phone] * Hepatitis Panel, General (01/02/2023 3:20 PM EDT) Hepatitis A IgM Nonreactive Nonreactive [facility] Comment:IgM antibodies to CORONADO V not detected; does not exclude earlyacute or recovered HAV infection. ~Hepatitis B Surface Antibody REACTIVE Nonreactive [facility] Comment:REACTIVE: > 11.99 mI U/mL Hepatitis B Core Antibody Nonreactive Nonreactive [facility] Hepatitis C Antibody Nonreactive Nonreactive [facility] Comment:Antibodies to HCV no t detected; does not exclude early acuteHCV infection. Hepatitis B Surface Ag Negative Negative [facility] 01/02/2023 3:20 PM EDT 01/02/2023 3:20 PM EDT [facility] External Provider LAB BLO OD ORDERABLES Final Result Performing Organization Address [facility] Co de Phone Number [facility] [address] [place] [phone] * (ABNORMAL) THINPREP TIS PAP AND HPV mRNA E6/E7 WITH REFLEX TO HPV 16,18/45 (07/30/2022 9:52 AM EST) Clinical Information: None given [facility] COMMENT SEE COMMENT [facility] Comment: EXPLANATORY NOTE: ? The Pap is a screening test for cervical cancer. It is ?? not a diagnostic test and is subject to false negative ?? and false positive results. It is most reliable when a ?? satisfactory sample, regularly obtained, is submitted ?? with relevant clinical findings and history, and when ?? the Pap result is evaluated along with historic and ?? current clinical information. ?? COMMENT: This Pap test has been evaluated with computer assisted technology. [facility] Media Planner / Buyer : SEE COMMENT [facility] Comment: DCR, CT(ASCP) CT screening location: [address] ??[id number] HPV nRNA E6/E7 Detected(A) Not Detected [facility] Comment: Methodology: Loom Cleaner-Mediated Amplification This assay detects E6/E7 viral messenger RNA (mRNA) from 14 high-risk HPV types (16,18,31,33,35,39,45,51,52,56,58,59,66,68). ? Cervical sources are required for HPV testing. If a vaginal source from a patient who has had a total hysterectomy with removal of cervix was ?? submitted, please contact the testing laboratory for alternative testing options. ?? For additional information, please refer to http://education.Astley Clarke/faq/TVU233b9 (This link if provided for information/ educational purposes only.) Interpretation/R esult: Negative for intraepithelial lesion or malignancy. [facility] LMP: MENOPAUSAL [facility] PATHOLOGIST: SEE COMMENT CONVE [facility] Comment: Chris Bai M.D., Direct , Board Certified in Anatomic Pathology and Cytopathology (electronic signature) Consulting Pathologist [facility] [address] [place] [address] Prev. BX: NONE GIVEN [facility] Prev. PAP: NIL HPV - 2020 CONV ERTED [facility] SOURCE: Cervix [facility] Statement Of Adequacy: SEE COMMENT [facility] Comment: Satisfactory for evaluation. Endocervical/transformation zone component present. 07/30/2022 9:52 AM EST Janae WILLIS LAB PATHOLOGY ORDERABLES Final Result [facility] * HPV GENOTYPES 16,18/45 (07/30/2022 9:52 AM EST) HPV 16 RNA NOT DETECTED NOT DETECTED [facility] HPV 18/45 RNA NOT DETECTED NOT DETECTED [facility] Comment: Methodology: Loom Cleaner Mediated Amplification Cervical sources are required for HPV testing. If a vaginal source from a patient who has had a total hysterectomy with removal of cervix was submitted, please contact the testing laboratory for alternative testing options. 07/30/2022 9:52 AM EST Janae Joel [facility] LAB BLOOD ORDERABLES Megan bindu Result [facility] from Last 3 Months or Most Recently Relevant to Health Maintenance Insurance * Guarantor: Cece Espinosa Account Type Relation to Patient Date of Phone Billing Address Personal/Family Self [address] [place] [address] [facility] * Guarantor: Cece Espinosa Account Type Relation to Patient Date of Phone Billing Address Dental Self [address] [place] [address] DENTAL - [facility] * Guarantor: Cece Espinosa Account Type Relation to Patient Date of Phone Billing Address Personal/Family Self [address] [place] [address] Care Teams Entrepreneurial Finance Professor Relationship Specialty Start Date End Date Name, MD Reynold [address] [place] [phone] PCP - General Family Medicine 12/26/15
--- OUTSIDE RECORDS SUMMARY | 2024-10-25 13:19 | XMS_ITS | Encounter Summary ---
Author Organization [employer] Address 75 [facility] 7t [place] [address] Care Team Providers Care Coal Sample Tester Name Role Phone Name, Reynold FAUST Primary Care Provider [phone] Encounter Details Date Type Department Care Team (Late Contact Info) Description 03/30/2023 Orders Only [facility] PEDS [address] [place] [address] Sadia Silva LPN Social History Tobacco Use [...] Upcoming Encounters Date Type Department Care Team ([facility] Contact Info) Description 11/01/2024 9:45 AM EST Office Visit [facility] [address] [place] [phone] 11/16/2024 2:30 PM EST Office Visit [address] [phone] Name, MD Reynold [address] [place] [address] 12/09/2024 10:45 AM EDT Office Visit [address] [address] Dayron Rowell MD [address] [place] [address] documented as of this encounter Visit Diagnoses Not on filedocumented in this encounter Care Teams Coal Sample Tester Relationship Specialty Start Date End Date Name, MD Reynold [address] [place] [address] PCP - General Family Medicine 12/26/15 documented as of this encounter
--- OUTSIDE RECORDS SUMMARY | 2024-10-25 13:19 | XMS_ITS | Encounter Summary ---
Author Organization [employer] Address 75 [facility] 7t [place] [address] Care Team Providers Care Consumer Educator Name Role Phone Name, Reynold FAUST Primary Care Provider [phone] Reason for Visit * Reason Comments Med Refill Encounter Details Date Type Department Care Team ([facility] st Contact Info) Description 10/19/2024 Refill [facility] [address] [place] [address] Name, MD Reynold [address] [place] [address] Social History Tobacco Use Types Packs/Day Years [...] Description 11/01/2024 9:45 AM EST Office Visit [address] [address] 11/16/2024 2:30 PM EST Office Visit [address] [address] NameReynold MD [address] [place] [phone] 12/09/2024 10:45 AM EDT Office Visit [address] [address] Dayron Rowell MD [address] [place] [phone] documented as of this encounter Visit Diagnoses Not on filedocumented in this encounter Additional Health Concerns Assessment Noted Time PHQ-9 Depression Total Score: 7 12/11/19 24 11:10 AM EDT documented as of this encounter Care Teams Consumer Educator Relationship Specialty Start Date End Date Reynold Crowell MD [address] [place] [phone] PCP - General Family Medicine 12/26/15 documented as of this encounter
--- OUTSIDE RECORDS SUMMARY | 2024-10-25 13:19 | XMS_ITS | Encounter Summary ---
Author Organization [employer] Address 75 [facility] 7t [place] [address] Care Team Providers Care Revenue Cycle Analyst Name Role Phone Name, Reynold FAUST Primary Care Provider Reason for Visit * Reason Comments Med Refill Encounter Details Date Type Department Care Team ([facility] st Contact Info) Description 10/19/2024 Refill [facility] [address] [place] [address] Name, MD Reynold [address] [place] [address] Chronic pain syndrome Social History Tobacco Use [...] Description 11/01/2024 9:45 AM EST Office Visit [address] [address] 11/16/2024 2:30 PM EST Office Visit [address] [address] Reynold Crowell MD [address] [place] [address] 12/09/2024 10:45 AM EDT Office Visit [address] [address] Dayron Rowell MD [address] [place] [address] documented as of this encounter Visit Diagnoses Diagnosis Chronic pain syndrome documented in this encounter Additional Health Concerns Assessment Noted Time PHQ-9 Depression Total Score: 7 12/11/19 24 11:10 AM EDT documented as of this encounter Care Teams Revenue Cycle Analyst Relationship Specialty Start Date End Date Reynold Crowell MD [address] [place] [phone] PCP - General Family Medicine 12/26/15 documented as of this encounter
--- OUTSIDE RECORDS SUMMARY | 2024-10-25 13:19 | XMS_ITS | Encounter Summary ---
Author Organization [employer] [facility] Address [address] [place] [address] 7 [place] [address] Care Team Providers Care Decorating Instructor Name Role Phone Name, Reynold FAUST Primary Care Provider [phone] Reason for Visit * Reason Comments Med Refill Encounter Details Date Type Department Care Team (Late st Contact Info) Description 04/02/2023 Refill [facility] MEDICINE [address] [place] [phone] NameReynold MD [address] [place] [phone] Chronic cough Social History Tobacco Use Types [...] Description 11/01/2024 9:45 AM EST Office Visit [facility] MEDICINE [address] [place] [address] [phone] 11/16/2024 2:30 PM EST Office Visit [facility] MED[facility]INE [address] [place] [phone] Reynold Crowell MD [address] [place] [phone] 12/09/2024 10:45 AM EDT Office Visit [facility] MEDICINE [address] [place], [place] [phone] Dayron Rowell MD [address] [place] [address] documented as of this encounter Visit Diagnoses Diagnosis Chronic cough Cough documented in this encounter Care Teams Decorating Instructor Relationship Specialty Start Date End Date Name, MD Reynold [address] [place] [address] PCP - General Family Medicine 12/26/15 documented as of this encounter
--- OUTSIDE RECORDS SUMMARY | 2024-10-25 13:19 | XMS_ITS | Encounter Summary ---
Author Organization [employer] Address 75 [facility] 7t [place] [address] Care Team Providers Care Mobile Architect Name Role Phone Name, Reynold FAUST Primary Care Provider [phone] Encounter Details Date Type Department Care Team (Late st Contact Info) Description 10/06/2024 Orders Only GENERIC EXTERNAL DATA DEPARTMENT Provider, Generic External Data Social History Tobacco Use Types Packs/Day Years [...] Description 11/01/2024 9:45 AM EST Office Visit [address] [address] 11/16/2024 2:30 PM EST Office Visit [address] [address] Name, MD Reynold [address] [place] [address] 12/09/2024 10:45 AM EDT Office Visit [address] [address] Dayron Rowell MD [address] [place] [address] [phone] documented as of this encounter Procedures Procedure Name Priority Date/Time Associated Diagnosis Comments CBC WITH AUTO DIFFERENTIAL Routine 10/06/2024 4:00 PM EST COMPREHENSIVE METABOLIC PANEL Routine 10/06/2024 4:00 PM EST documented in this encounter Results * (ABNORMAL) Comprehensive Metabolic Panel (10/06/2024 4:00 PM EST) Sodium 142 135 - 145 mmol/L [facility] Potassium 3.7 3.3 - 5.1 mmol/L [facility] Chloride 108 96 - 108 mmol/L [facility] Carbon Dioxide 27 22 - 29 mmol/L [facility] Anion Gap 11(L) 12 - 20 [facility] Urea Nitrogen (BUN) 21(H) 9 - 16 mg/dL [facility] Creatinine, Serum 0.95 0.5 - 1.4 mg/dL [facility] Estimated Glomerular Filt Rate >60 [facility] Comment:Chronic Kidney Disea se: Estimated GFR < 60 mL/min/1.35t0Ioqpna Kidney Disease: Estimated GFR < 15 mL/min/1.73m2 Glucose 96 60 - 115 mg/dL [facility] Calcium 9.4 8.4 - 10.2 mg/dL [facility] Bilirubin, Total 0.3 0.0 - 1.0 mg/dL [facility] Aspartate Amino Transferase 41(H) 5 - 31 U/L [facility] Alanine Aminotransferase 37(H) 0 - 31 U/L [facility] Total Protein 8.5(H) 6.5 - 8.0 g/dL [facility] Albumin Level 4.2 3.5 - 5.0 g/dL [facility] Alkaline Phosphatase 78 39 - 117 U/L [facility] 10/06/2024 4:00 PM EST 10/06/2024 4:00 PM EST us Generic External Data Provider LAB BLOOD ORDERAB LES Final Result [facility] [address] [place] [phone] * (ABNORMAL) CBC auto differential (10/06/2024 4:00 PM EST) White Blood Count 5.5 4.8 - 10.8 X10*3/uL [facility] Red Blood Count 4.42 4.20 - 5.50 X10*6/uL [facility] Hemoglobin 12.2 12.0 - 16.0 g/dl [facility] Hematocrit 37.6 37.0 - 47.0 % [facility] Mean Corpuscular Volume 85.1 80.0 - 98.0 fL [facility] Mean Corpuscular Hemoglobin 27.6 27.0 - 33.0 pg [facility] Mean Corpuscular HGB Conc 32.4 31.0 - 35.0 g/dl [facility] Red Cell Distribution Width 14.9 11.0 - 16.0 % [facility] Platelet Count 179 160 - 400 X10*3/uL [facility] Mean Platelet Volume 11.4 9.4 - 12.3 fL [facility] Neutrophils Percent Auto 71.5 45 - 73 % [facility] Imm Gran Pct Auto 0.4 0.0 - 0.4 % [facility] Lymphocytes Percent Auto 17.9(L) 20 - 40 % [facility] Monocytes Percent Auto 8.2 2 - 11 % [facility] Eosinophils Percent Auto 1.6 0 - 4 % [facility] Basophils Percent Auto 0.4 0 - 2 % [facility] NRBC Pct Auto 0.0 0.0 - 0.2 /100WBC [facility] Neutrophils Absolute Auto 4.0 2.0 - 8.3 x10*3/uL [facility] Imm Gran Abs Auto 0.02 0.00 - 0.03 X10*3/uL [facility] Lymphocytes Absolute Auto 1.0(L) 1.2 - 4.9 X10*3/uL [facility] Monocytes Absolute Auto 0.5 0.1 - 1.2 X10*3/uL [facility] Eosinophils Absolute Auto 0.1 0.0 - 0.4 X10*3/uL [facility] Basophils Absolute Auto 0.0 0.0 - 0.2 X10*3/uL [facility] NRBC Abs Auto 0.000 0.0 - 0.012 X10*3/uL [facility] 10/06/2024 4:00 PM EST 10/06/2024 4:00 PM EST us Generic External Data Provider LAB BLOOD ORDERAB LES Final Result [facility] [address] [place] [phone] documented in this encounter Visit Diagnoses Not on filedocumented in this encounter Additional Health Concerns Assessment Noted Time PHQ-9 Depression Total Score: 7 12/11/19 24 11:10 AM EDT documented as of this encounter Care Teams Mobile Architect Relationship Specialty Start Date End Date Name, MD Reynold [address] [place] [address] PCP - General Family Medicine 12/26/15 documented as of this encounter
--- OUTSIDE RECORDS SUMMARY | 2024-10-25 13:19 | XMS_ITS | Encounter Summary ---
Author Organization [employer] Address [address] [facility] 7t [place] [address] Care Team Providers Care Psychiatric Social Worker Name Role Phone Name, Reynold FAUST Primary Care Provider [phone] Reason for Visit * Reason Onset Date Comments Nurse Triage 08/16/2024 Encounter Details Date Type Department Care Team ([facility] st Contact Info) Description 08/16/2024 Telephone [facility] [address] [place] [address] Name, MD Reynold [address] [place] [address] Nurse Triage Social History Tobacco Use Types Packs/Day Years [...] encounter Miscellaneous Notes * Telephone Encounter - Sandhya Monk RN - 08/16/2024 3:42 PM EST Triage call Pt reports pain on the top of right foot. Pt describes a cyst type bump size of small fingernail . Pt reports some swelling and redness and the bump feels very hard. Pt has been prescribed celebrex but, reports some adverse reaction to this so has stopped. Pt reports tramadol helps thepain some. Pt is having difficulty ambulating. Pt doesn't have transportation but, will call to come to [facility] for Thursday evening. Pt agrees with disposition and home care is already implemented. Pt insurance is verified as active. Protocol Used: Foot Pain (Adult) Protocol-Based Disposition: See in Office or Video Visit within 2 Weeks Video visit not offered Positive Triage Question: * Foot pain is a chronic symptom (recurrent or ongoing AND lasting > 4 weeks) * All higher-acuity triage questions were negative Care Advice Discussed: * Reassurance and Education - Foot Pain * Reassurance and Education - Overuse * Foot Pain - Aggravating Factors * Pain Medicines * Pain Medicines - Extra Notes and Warnings * Reasons To Call Back - Swelling, redness, or fever occur - Severe pain not relieved by pain medicine - Pain lasts over 7 days - You become worse * Telephone Encounter - Batool Cheng - 08/16/2024 3:31 PM EST Symptom: Foot or Ankle Pain - Not From Injury Outcome: Schedule an urgent appointment (within 1 hour) or talk to a nurse or provider soon Reason: Trouble walking The caller accepted this outcome. documented in this encounter Plan of Treatment Upcoming Encounters Date Type Department Care Team (Late st Contact Info) Description 11/01/2024 9:45 AM EST Office Visit [address] [address] 11/16/2024 2:30 PM EST Office Visit [address] [address] Name, MD Reynold [address] [place] [address] 12/09/2024 10:45 AM EDT Office Visit [address] [address] Dayron Rowell MD [address] [place] [address] documented as of this encounter Visit Diagnoses Not on filedocumented in this encounter Additional Health Concerns Assessment Noted Time PHQ-9 Depression Total Score: 7 12/11/19 24 11:10 AM EDT documented as of this encounter Care Teams Psychiatric Social Worker Relationship Specialty Start Date End Date Name, MD Reynold [address] [place] [phone] PCP - General Family Medicine 12/26/15 documented as of this encounter
--- OUTSIDE RECORDS SUMMARY | 2024-10-25 13:19 | XMS_ITS | Encounter Summary ---
Author Organization [employer] [facility] Address [address] [place] [address] 7 [place] [address] Care Team Providers Care Quality Improvement Manager Name Role Phone Name, Reynold FAUST Primary Care Provider [phone] Reason for Visit * Reason Comments Med Refill Encounter Details Date Type Department Care Team (Late st Contact Info) Description 04/06/2023 Refill [facility] MEDICINE [address] [place] [address] NameReynold MD [address] [place] [address] 09398 Chronic cough Social History Tobacco Use Types [...] Description 11/01/2024 9:45 AM EST Office Visit [facility] MEDICINE [address] [place] [address] [phone] 11/16/2024 2:30 PM EST Office Visit [facility] MEDICINE [address] [place] [address] 10[address] Reynold Crowell MD [address] [place] [address] 26832 12/09/2024 10:45 AM EDT Office Visit [facility] MEDICINE 230 [place], [place] [phone] Dayron Rowell MD 230 [place] [address] documented as of this encounter Visit Diagnoses Diagnosis Chronic cough Cough documented in this encounter Care Teams Quality Improvement Manager Relationship Specialty Start Date End Date Name, MD Reynold [address] [place] [address] 47060 PCP - General Family Medicine 12/26/15 documented as of this encounter
--- OUTSIDE RECORDS SUMMARY | 2024-10-25 13:19 | XMS_ITS | Encounter Summary ---
Author Organization [employer] Address [address] [facility] 7t [place] [address] Care Team Providers Care Vocational Training Instructor Name Role Phone Name, Reynold FAUST Primary Care Provider [phone] Reason for Visit * Reason Onset Date Comments New Med Request 2024 Encounter Details Date Type Department Care Team ([facility] st Contact Info) Description 2024 Telephone [facility] MEDICINE 230 [place] [address] Name, MD Reynold 230 [place] [address] New Med Request Social History Tobacco Use Types Packs/Day Years Used Date Smoking Tobacco: Former Cigarettes Smokeless Tobacco: Never Alcohol Use Standard Drinks/Week Comments Never 0 (1 standard drink = 0.6 oz pur e alcohol) Depression Answer Date Recorded Patient Health Questionnaire-9 Score 7 12/11/2023 Patient Health Questionnaire-9 Score 7 12/11/2023 Last PHQ-9: Questionnaire Data Not on file 0 12/11/2023 Housing Stability Answer Date Recorded What is your housing situation today? I have julieth sing 12/11/[address] you li [...] encounter Miscellaneous Notes * Telephone Encounter - Morgan Rose RN - 2024 3:30 PM EDT T/C to pt. For below message through Taskforce interpreters id - [id number], pt. Verbally greed and understood. * Telephone Encounter - Morgan Rose RN - 2024 10:47 AM EDT T/C to pt. For below message, pt. States she needs medication for nausea and dizziness. Pt. Does not has any symptoms right now but as per pt. Her daughter is going to bring her for birthday surpriseand looking for meds. For dizziness and nausea. Pt. Advised that message will be sent to pcp for review. Please review and advise. * Telephone Encounter - Quin Urban - 2024 9:49 AM EDT Tc from pt requesting a medication for nauseas and or vomiting but no drowsy, stated is going somewhere as a birthday surprise and daughter told her to contact PCP and request the med just in case. documented in this encounter Plan of Treatment Upcoming Encounters Date Type Department Care Team (Late st Contact Info) Description 11/01/2024 9:45 AM EST Office Visit [address] [address] 11/16/2024 2:30 PM EST Office Visit [address] [address] NameReynold MD [address] [place] [address] 12/09/2024 10:45 AM EDT Office Visit [address] [address] Dayron Rowell MD [address] [place] [address] documented as of this encounter Visit Diagnoses Not on filedocumented in this encounter Additional Health Concerns Assessment Noted Time PHQ-9 Depression Total Score: 7 12/11/19 24 11:10 AM EDT documented as of this encounter Care Teams Vocational Training Instructor Relationship Specialty Start Date End Date Reynold Crowell MD [address] [place] [address] PCP - General Family Medicine 12/26/15 documented as of this encounter
--- OUTSIDE RECORDS SUMMARY | 2024-10-25 13:19 | XMS_ITS | Encounter Summary ---
Author Organization [employer] [facility] Address [address] [place] [address] 7 [place] [address] Care Team Providers Care Surgical Garment Fitter Name Role Phone Name, Reynold FAUST Primary Care Provider [phone] Reason for Visit * Reason Comments Med Refill Encounter Details Date Type Department Care Team (Late st Contact Info) Description 03/11/2023 Refill [facility] MEDICINE [address] [place] [address] NameReynold MD [address] [place] [address]684 Chronic cough Social History Tobacco Use Types [...] Description 11/01/2024 9:45 AM EST Office Visit [facility] MEDICINE [address] [place] [address] [phone] 11/16/2024 2:30 PM EST Office Visit [facility] MEDICINE [address] [place] [address] Reynold Crowell MD [address] [place] [address] 12/09/2024 10:45 AM EDT Office Visit [facility] MEDICINE 230 [place], [place] [phone] Dayron Rowell MD 230 [place] [address] documented as of this encounter Visit Diagnoses Diagnosis Chronic cough Cough documented in this encounter Care Teams Surgical Garment Fitter Relationship Specialty Start Date End Date Name, MD Reynold [address] [place] [address] PCP - General Family Medicine 12/26/15 documented as of this encounter
--- OUTSIDE RECORDS SUMMARY | 2024-10-25 13:19 | XMS_ITS | Encounter Summary ---
Author Organization [employer] Address 75 [facility] 7t [place] [address] Care Team Providers Care Regional Commercial Sales Manager Name Role Phone Name, Reynold FAUST Primary Care Provider [phone] Reason for Visit * Reason Comments Med Refill Encounter Details Date Type Department Care Team ([facility] st Contact Info) Description 09/27/2024 Refill [facility] [address] [place] [address] Name, MD Reynold 230 [place] [address] Rash Social History Tobacco Use Types Packs/Day [...] Description 11/01/2024 9:45 AM EST Office Visit [address] [address] 11/16/2024 2:30 PM EST Office Visit [address] [address] Reynold Crowell MD [address] [place] [address] 12/09/2024 10:45 AM EDT Office Visit [address] [address] Dayron Rowell MD [address] [place] [address] documented as of this encounter Visit Diagnoses Diagnosis Rash Rash and other nonspecific skin eruption documented in this encounter Additional Health Concerns Assessment Noted Time PHQ-9 Depression Total Score: 7 12/11/19 24 11:10 AM EDT documented as of this encounter Care Teams Regional Commercial Sales Manager Relationship Specialty Start Date End Date Reynold Crowell MD [address] [place] [address] PCP - General Family Medicine 12/26/15 documented as of this encounter
--- OUTSIDE RECORDS SUMMARY | 2024-10-25 13:19 | XMS_ITS | Encounter Summary ---
Author Organization [employer] Address [address] [place] [address] 7 [place] [address] Care Team Providers Care Candy Department Manager Name Role Phone Name, Reynold FAUST Primary Care Provider [phone] Encounter Details Date Type Department Care Team (Late st Contact Info) Description 11/11/2022 Orders Only [facility] MEDICINE [address] [place] [address] Valeria Heredia LPN Social History Tobacco Use Types Packs/Day [...] Description 11/01/2024 9:45 AM EST Office Visit [address] [address] 11/16/2024 2:30 PM EST Office Visit [address] [address] Name, MD Reynold [address] [place] [address] 12/09/2024 10:45 AM EDT Office Visit [address] [phone] Dayron Rowell MD [address] [place] [address] documented as of this encounter Procedures Procedure Name Priority Date/Time Associated Diagnosis Comments XR CHEST 2 VIEWS Routine 11/28/2022 4:19 PM EST documented in this encounter Results * XR Chest 2 Views (11/28/2022 4:19 PM EST) Anatomical Region Laterality Modality Chest Radiographic Milla ging 11/28/2022 4:19 PM EST Narrative 11/29/2022 12:42 PM EST ? [facility] ?[address] ?[place] [address] ?XRay Report ? Signed ? Patient: Cece Espinosa ?MR#: [id number] ?? [id number] ? : 1965 ?Acct:[id number] ? Age/Sex: 57 / F ?ADM Date: 11/28/22 ? Loc: HO.XRAY ? Attending Dr: Reynold Crowell MD ? Ordering Physician: Reynold Crowell MD ?? Date of Service: 11/28/22 ?? Procedure(s): XR chest 2V ?? Accession Number(s): [id number] ? cc: Reynold Crowell MD ? EXAMINATION: ?? XR CHEST ? CLINICAL INFORMATION: ?? Chronic cough ? COMPARISON: ?? Chest radiographs 04/25/2021, 07/12/2016. ? TECHNIQUE: ?? 2 views of the chest were obtained. ? FINDINGS: ?? There is mild coarsening bronchiolar markings without airspace ?? consolidation or groundglass opacity. No effusion. The heart is normal ?? in size. The vascularity is normal. The hilar and mediastinal contours ?? and bony structures are stable. ? XR/XR chest 2V ?? IMPRESSION: ?? Mild coarsening bronchiolar markings. ?? No airspace consolidation or groundglass opacity. ? Dictated By: ?Zan Barrios MD ? Signed By: ?<Electronically signed by Zan Barrios MD in OV> ?11/29/22 1239 ? DD/DT: 03// 1619 ? TD/TT: ? Supervisor Publications: DELEON ? Procedure Note Douglas Isebll - 11/29/2022 [facility] [address] [place] [address] XRay Report Signed Patient: Cece EspinosaMR#: [id number] : 1965Acct:[id number] Age/Sex: 57 / FADM Date: 11/28/22 Loc: HO.XRAY Attending Dr: Reynold Crowell MD Ordering Physician: Reynold Crowell MD Date of Service: 11/28/22 Procedure(s): XR chest 2V Accession Number(s): [id number] cc: Reynold Crowell MD EXAMINATION: XR CHEST CLINICAL INFORMATION: Chronic cough COMPARISON: Chest radiographs 04/25/2021, 07/12/2016. TECHNIQUE: 2 views of the chest were obtained. FINDINGS: There is mild coarsening bronchiolar markings without airspace consolidation or groundglass opacity. No effusion. The heart is normal in size. The vascularity is normal. The hilar and mediastinal contours and bony structures are stable. XR/XR chest 2V IMPRESSION: Mild coarsening bronchiolar markings. No airspace consolidation or groundglass opacity. Dictated By: Zan Barrios MD Signed By: <Electronically signed by Zan Barrios MD in OV> 11/29/22 1239 DD/ 1619 TD/TT: Supervisor Publications: DELEON [facility] External Provider IMG XR PROCEDURES Final Result documented in this encounter Visit Diagnoses Not on filedocumented in this encounter Care Teams Candy Department Manager Relationship Specialty Start Date End Date Name, MD Reynold [address] [place] [address] PCP - General Family Medicine 12/26/15 documented as of this encounter
--- OUTSIDE RECORDS SUMMARY | 2024-10-25 13:20 | XMS_ITS | Encounter Summary ---
Author Organization [employer] Address [address] [place] [address] 7 [place] [address] Care Team Providers Care Manager Social Name Role Phone Name, Reynold FAUST Primary Care Provider [phone] Encounter Details Date Type Department Care Team (Late st Contact Info) Description 10/07/2023 Abstract [facility] MEDICINE [address] [place] [address] Reynold Crowell MD [address] [place] [address] Social History Tobacco Use Types Packs/Day Years [...] Description 11/01/2024 9:45 AM EST Office Visit [address] [phone] 11/16/2024 2:30 PM EST Office Visit [address] [phone] Reynold Crowell MD [address] [place] [address] 12/09/2024 10:45 AM EDT Office Visit [facility] MEDICINE 230 [place] [address] Dayron Rowell MD 230 [place] [address] documented as of this encounter Visit Diagnoses Not on filedocumented in this encounter Care Teams Manager Social Relationship Specialty Start Date End Date Name, MD Reynold [address] [place] [address] PCP - General Family Medicine 12/26/15 documented as of this encounter
--- OUTSIDE RECORDS SUMMARY | 2024-10-25 13:20 | XMS_ITS | Encounter Summary ---
Author Organization [employer] Address 75 [facility] 7t [place] [address] Care Team Providers Care Dictating Machine Mechanic Name Role Phone Name, Reynold FAUST Primary Care Provider [phone] Reason for Visit * Reason Comments Med Refill Encounter Details Date Type Department Care Team ([facility] st Contact Info) Description 02/28/2024 Refill [facility] MEDICINE 230 [place] [address] Name, MD Reynold 230 [place] [address] Chronic cough Social History Tobacco Use Types [...] Description 11/01/2024 9:45 AM EST Office Visit [address] [address] 11/16/2024 2:30 PM EST Office Visit [address] [address] NameReynold MD [address] [place] [address] 12/09/2024 10:45 AM EDT Office Visit [address] [address] Dayron Rowell MD [address] [place] [address] documented as of this encounter Visit Diagnoses Diagnosis Chronic cough Cough documented in this encounter Additional Health Concerns Assessment Noted Time PHQ-9 Depression Total Score: 7 12/11/19 24 11:10 AM EDT documented as of this encounter Care Teams Dictating Machine Mechanic Relationship Specialty Start Date End Date Reynold Crowell MD [address] [place] [address] PCP - General Family Medicine 12/26/15 documented as of this encounter
--- OUTSIDE RECORDS SUMMARY | 2024-10-25 13:20 | XMS_ITS | Encounter Summary ---
Author Organization [employer] Address 75 [facility] 7t [place] [address] Care Team Providers Care Software Engineer Intern Name Role Phone Name, Reynold FAUST Primary Care Provider [phone] Reason for Visit * Reason Comments Med Refill Encounter Details Date Type Department Care Team ([facility] st Contact Info) Description 06/11/2024 Refill [facility] MEDICINE 230 [place] [address] Name, MD Reynold 230 [place] [address] Essential hypertension Social History Tobacco Use Types Packs/Day Years [...] Description 11/01/2024 9:45 AM EST Office Visit [address] [address] 11/16/2024 2:30 PM EST Office Visit [address] [address] Reynold Crowell MD [address] [place] [address] 12/09/2024 10:45 AM EDT Office Visit [address] [address] Dayron Rowell MD [address] [place] [address] documented as of this encounter Visit Diagnoses Diagnosis Essential hypertension Unspecified essential hypertension documented in this encounter Additional Health Concerns Assessment Noted Time PHQ-9 Depression Total Score: 7 12/11/19 24 11:10 AM EDT documented as of this encounter Care Teams Software Engineer Intern Relationship Specialty Start Date End Date Reynold Crowell MD [address] [place] [address] PCP - General Family Medicine 12/26/15 documented as of this encounter
== END 2024-10-25 13:53 | disposition home or self-care (01) ==
PROVIDERS: PCP Internal Medicine Geriatric Medicine; Visit Provider Student in an Organized Health Care Education/Training Program
DX: M06.09 Rheumatoid arthritis without rheumatoid factor, multiple sites (principal); Z79.620 Long term (current) use of immunosuppressive biologic
CPT/HCPCS: 99215; G2211

== ENCOUNTER → 2024-10-25 12:56 | Outpatient (BNVA) | payer OTHER, SELFPAY | PROVIDERS: PCP Internal Medicine Geriatric Medicine; Visit Provider Student in an Organized Health Care Education/Training Program | DX: M06.09 Rheumatoid arthritis without rheumatoid factor, multiple sites (principal); Z79.620 Long term (current) use of immunosuppressive biologic | CPT/HCPCS: 99212 ==

== ENCOUNTER 2024-10-31 13:53 | Outpatient (REF) | payer OTHER, SELFPAY ==
--- OUTSIDE RECORDS SUMMARY | 2024-10-31 15:04 | XMS_ITS | Encounter Summary ---
Author Organization [employer] [facility] Address [address] [place] [address] 7 [place] [address] Care Team Providers Care Dye Room Helper Name Role Phone Name, Reynold FAUST Primary Care Provider [phone] Reason for Visit * Reason Comments Med Refill Encounter Details Date Type Department Care Team (Late st Contact Info) Description 03/13/2023 Refill [facility] MEDICINE [address] [place] [address] NameReynold MD [address] [place] [address] Chronic cough Social History Tobacco Use Types [...] Description 11/01/2024 9:45 AM EST Office Visit [facility] MEDICINE [address] [place] [address] [phone] 11/16/2024 2:30 PM EST Office Visit [facility] MEDICINE [address] [place] [address] Reynold Crowell MD [address] [place] [address] 12/09/2024 10:45 AM EDT Office Visit [facility] MEDICINE 230 [place], [place] [phone] Dayron Rowell MD 230 [place] [address] documented as of this encounter Visit Diagnoses Diagnosis Chronic cough Cough documented in this encounter Care Teams Dye Room Helper Relationship Specialty Start Date End Date Name, MD Reynold [address] [place] [address] PCP - General Family Medicine 12/26/15 documented as of this encounter
--- OUTSIDE RECORDS SUMMARY | 2024-10-31 15:04 | XMS_ITS | Encounter Summary ---
Author Organization [employer] [facility] Address [address] [place] [address] 7 [place] [address] Care Team Providers Care Beam Warper Name Role Phone Name, Reynold FAUST Primary Care Provider [phone] Reason for Visit * Reason Comments Med Refill Encounter Details Date Type Department Care Team (Late st Contact Info) Description 04/02/2023 Refill [facility] MEDICINE [address] [place] [address] NameReynold MD [address] [place] [address] Chronic cough Social History Tobacco Use Types [...] Description 11/01/2024 9:45 AM EST Office Visit [facility] MEDICINE [address] [place] [address] [phone] 11/16/2024 2:30 PM EST Office Visit [facility] MEDICINE [address] [place] [address] Reynold Crowell MD [address] [place] [address] 12/09/2024 10:45 AM EDT Office Visit [facility] MEDICINE 230 [place], [place] [phone] Dayron Rowell MD 230 [place] [address] documented as of this encounter Visit Diagnoses Diagnosis Chronic cough Cough documented in this encounter Care Teams Beam Warper Relationship Specialty Start Date End Date Name, MD Reynold [address] [place] [address] PCP - General Family Medicine 12/26/15 documented as of this encounter
--- OUTSIDE RECORDS SUMMARY | 2024-10-31 15:04 | XMS_ITS | Encounter Summary ---
Author Organization [employer] Address [address] [facility] 7t [place] [address] Care Team Providers Care Pot Lining Supervisor Name Role Phone Name, Reynold FAUST Primary Care Provider [phone] Encounter Details Date Type Department Care Team (Late Contact Info) Description 03/30/2023 Orders Only [facility] MED & PEDS [address] [place] [address] Sadia Silva LPN Social History Tobacco Use [...] Upcoming Encounters Date Type Department Care Team ([facility] Contact Info) Description 11/01/2024 9:45 AM EST Office Visit [facility] MEDICINE [address] [place] [address] 11/16/2024 2:30 PM EST Office Visit [address] [phone] Name, MD Reynold [address] [place] [address] 12/09/2024 10:45 AM EDT Office Visit [address] [address] Dayron Rowell MD 230 [place] [address] documented as of this encounter Visit Diagnoses Not on filedocumented in this encounter Care Teams Pot Lining Supervisor Relationship Specialty Start Date End Date Name, MD [place]old 230 [place] [address] PCP - General Family Medicine 12/26/15 documented as of this encounter
--- OUTSIDE RECORDS SUMMARY | 2024-10-31 15:04 | XMS_ITS | Encounter Summary ---
Author Organization [employer] Address [address] [facility] 7t [place] [address] Care Team Providers Care Blasting Contract Miner Name Role Phone Name, Reynold FAUST Primary Care Provider [phone] Reason for Visit * Reason Onset Date Comments Med Refill Reschedule [employer] she cancelled 02/02/23 06/05/20 Encounter Details Date Type Department Care Team (Late st Contact Info) Description 06/05/2023 Refill [facility] [address] [place] [address] Name, MD Reynold 230 [place] [address] Chronic pain syndrome Social History Tobacco Use [...] 06/08/2023 10:55 AM EDT Pt was cancelled [employer] on 02/02/23 and has not rescheduled. TC to pt, no answer. L/M requesting she call to reschedule her [employer] she cancelled. documented in this encounter Plan of Treatment Upcoming Encounters Date Type Department Care Team (Late st Contact Info) Description 11/01/2024 9:45 AM EST Office Visit [address] [address] 11/16/2024 2:30 PM EST Office Visit [address] [address] Name, MD [place] [address] [place] [address] 12/09/2024 10:45 AM EDT Office Visit [address] [address] Dayron Rowell MD [address] [place] [address] documented as of this encounter Visit Diagnoses Diagnosis Chronic pain syndrome documented in this encounter Care Teams Blasting Contract Miner Relationship Specialty Start Date End Date NameReynold MD [address] [place] [address] PCP - General Family Medicine 12/26/15 documented as of this encounter
--- OUTSIDE RECORDS SUMMARY | 2024-10-31 15:04 | XMS_ITS | Encounter Summary ---
Author Organization [employer] [facility] Address [address] [place] [address] 7 [place] [address] Care Team Providers Care Resident Caregiver Name Role Phone Name, Reynold FAUST Primary Care Provider [phone] Reason for Visit * Reason Comments Med Refill Encounter Details Date Type Department Care Team (Late st Contact Info) Description 03/11/2023 Refill [facility] MEDICINE [address] [place] [address] NameReynold MD [address] [place] [address] Chronic cough Social History Tobacco Use Types [...] Description 11/01/2024 9:45 AM EST Office Visit [facility] MEDICINE [address] [place] [address] [phone] 11/16/2024 2:30 PM EST Office Visit [facility] MEDICINE [address] [place] [address] Reynold Crowell MD [address] [place] [address] 12/09/2024 10:45 AM EDT Office Visit [facility] MEDICINE 230 [place], [place] [phone] Dayron Rowell MD 230 [place] [address] documented as of this encounter Visit Diagnoses Diagnosis Chronic cough Cough documented in this encounter Care Teams Resident Caregiver Relationship Specialty Start Date End Date Name, MD Reynold [address] [place] [address] PCP - General Family Medicine 12/26/15 documented as of this encounter
--- OUTSIDE RECORDS SUMMARY | 2024-10-31 15:04 | XMS_ITS | Encounter Summary ---
Author Organization [employer] [facility] Address [address] [place] [address] 7 [place] [address] Care Team Providers Care Manager Of Financial Name Role Phone Name, Reynold FAUST Primary Care Provider [phone] Reason for Visit * Reason Comments Med Refill Encounter Details Date Type Department Care Team (Late st Contact Info) Description 04/06/2023 Refill [facility] MEDICINE [address] [place] [address] NameReynold MD [address] [place] [address] Chronic cough Social History Tobacco Use Types [...] Description 11/01/2024 9:45 AM EST Office Visit [facility] MEDICINE [address] [place] [address] [phone] 11/16/2024 2:30 PM EST Office Visit [facility] MEDICINE [address] [place] [address] Reynold Crowell MD [address] [place] [address] 12/09/2024 10:45 AM EDT Office Visit [facility] MEDICINE 230 [place], [place] [phone] Dayron Rowell MD 230 [place] [address] documented as of this encounter Visit Diagnoses Diagnosis Chronic cough Cough documented in this encounter Care Teams Manager Of Financial Relationship Specialty Start Date End Date Name, MD Reynold [address] [place] [address] PCP - General Family Medicine 12/26/15 documented as of this encounter
--- OUTSIDE RECORDS SUMMARY | 2024-10-31 15:05 | XMS_ITS | Encounter Summary ---
Author Organization [employer] Address [address] [place] [address] 7 [place] [address] Care Team Providers Care Claim Processor Name Role Phone Name, Reynold FAUST Primary Care Provider [phone] Encounter Details Date Type Department Care Team (Late st Contact Info) Description 10/07/2023 Abstract [facility] MEDICINE [address] [place] [address] Reynold Crowell MD [address] [place] [address] Social History Tobacco Use Types Packs/Day Years [...] Description 11/01/2024 9:45 AM EST Office Visit [address] [phone] 11/16/2024 2:30 PM EST Office Visit [address] [phone] Reynold Crowell MD [address] [place] [address] 12/09/2024 10:45 AM EDT Office Visit [facility] MED[facility]INE [address] [place] [address] Dayron Rowell MD 230 [place] [address] documented as of this encounter Visit Diagnoses Not on filedocumented in this encounter Care Teams Claim Processor Relationship Specialty Start Date End Date Name, MD Reynold [address] [place] [address] PCP - General Family Medicine 12/26/15 documented as of this encounter
--- OUTSIDE RECORDS SUMMARY | 2024-10-31 15:05 | XMS_ITS | Encounter Summary ---
Author Organization [employer] Address [address] [facility] 7t [place] [address] Care Team Providers Care Chalk Molding Machine Operator Name Role Phone Name, Reynold FAUST Primary Care Provider [phone] Reason for Visit * Reason Onset Date Comments Appointment Request 10/06/2024 Encounter Details Date Type Department Care Team ([facility] st Contact Info) Description 10/06/2024 Telephone [facility] [address] [place] [address] Name, MD Reynold 230 [place] [address] Appointment Request Social History Tobacco Use Types [...] in regards to this appt. Contact Pt: [phone] documented in this encounter Plan of Treatment Upcoming Encounters Date Type Department Care Team (Late st Contact Info) Description 11/01/2024 9:45 AM EST Office Visit [facility] [address] [place] [address] 11/16/2024 2:30 PM EST Office Visit [facility] [address] [place] [address] Name, MD Reynold [address] [place] [address] 12/09/2024 10:45 AM EDT Office Visit [facility] [address] [facility] [place] [address] Dayron Rowell MD [address] [facility] [place] [address] documented as of this encounter Visit Diagnoses Not on filedocumented in this encounter Additional Health Concerns Assessment Noted Time PHQ-9 Depression Total Score: 7 12/11/19 24 11:10 AM EDT documented as of this encounter Care Teams Chalk Molding Machine Operator Relationship Specialty Start Date End Date Name, MD Reynold [address] [place] [address] PCP - General Family Medicine 12/26/15 documented as of this encounter
--- OUTSIDE RECORDS SUMMARY | 2024-10-31 15:05 | XMS_ITS | Encounter Summary ---
Author Organization [employer] Address [address] [place] [address] 7 [place] [address] Care Team Providers Care Dye Mixer Name Role Phone Name, Reynold FAUST Primary Care Provider [phone] Encounter Details Date Type Department Care Team (Late st Contact Info) Description 10/13/2022 Orders Only [facility] MED & PEDS [address] [place] [address] Sadia Silva LPN Social History Tobacco Use [...] Description 11/01/2024 9:45 AM EST Office Visit [facility] [address] [place] [address] 11/16/2024 2:30 PM EST Office Visit [address] [address] Name, MD Reynold [address] [place] [address] 12/09/2024 10:45 AM EDT Office Visit [address] [address] Dayron Rowell MD 230 [place] [address] documented as of this encounter Procedures Procedure Name Priority Date/Time Associated Diagnosis Comments CBC WITH AUTO DIFFERENTIAL Routine 11/08/2022 10:25 AM EST HEMOGLOBIN A1C Routine 11/08/2022 10:25 AM EST LIPID PANEL, STANDARD Routine 11/08/2022 10:25 AM EST COMPREHENSIVE METABOLIC PANEL Routine 11/08/2022 10:25 AM EST documented in this encounter Results * Lipid Panel, Standard (11/08/2022 10:25 AM EST) Triglycerides 142 mg/dL [facility] Comment:Desirable Triglyceri de: less than 150 mg/dLBorderline High Triglyceride 150-199 mg/dLHigh Triglyceride: 200-499 mg/dLVery High Triglyceride: greater than or equal to 5OO mg/dL Cholesterol 225 mg/dL [facility] Comment:Desirable Cholestero l: less than 200 mg/dLBorderline High Cholesterol: 200-239 mg/dLHigh Cholesterol: greater than 239 mg/dL LDL Cholesterol Calculated 131 mg/dl [facility] Comment:Desirable LDL: less than 100 mg/dLNear Optimal/Above Optimal LDL: 110- 129 mg/dLBorderline High LDL: 130-159 mg/dLHigh LDL: 160-189 mg/dLVery High LDL: greater than or equal to 190 mg/dL HDL Cholesterol 66 mg/dL [facility] Comment:Desirable HDL: great er than 40 mg/dL Note: This HDL assay may give artificially low results in patients with liver disease. 11/08/2022 10:2 5 AM EST 11/08/2022 10:25 AM EST us [facility] External Provider LAB BLO OD ORDERABLES Final Result [facility] [address] [place] [address] [phone] * (ABNORMAL) Comprehensive Metabolic Panel (11/08/2022 10:25 AM EST) Sodium 143 135 - 145 mmol/L [facility] Potassium 4.1 3.3 - 5.1 mmol/L [facility] Chloride 106 96 - 108 mmol/L [facility] Carbon Dioxide 27 22 - 29 mmol/L [facility] Anion Gap 14 12 - 20 [facility] Urea Nitrogen (BUN) 23(H) 9 - 16 mg/dL [facility] Creatinine, Serum 0.81 0.5 - 1.4 mg/dL [facility] Estimated Glomerular Filt Rate >60 [facility] Comment:NOTE: For -Am erican individuals, multiply the result by 1.210.Chronic Kidney Disease: Estimated GFR < 60 mL/min/1.66p9Mdpxek Kidney Disease: Estimated GFR < 15 mL/min/1.73m2 Glucose 107 60 - 115 mg/dL [facility] Calcium 9.5 8.4 - 10.2 mg/dL [facility] Bilirubin, Total 0.5 0.0 - 1.0 mg/dL [facility] Aspartate Amino Transferase 24 5 - 31 U/L [facility] Alanine Aminotransferase 27 0 - 31 U/L [facility] Total Protein 7.5 6.5 - 8.0 g/dL [facility] Albumin Level 4.2 3.5 - 5.0 g/dL [facility] Alkaline Phosphatase 79 39 - 117 U/L [facility] 11/08/2022 10:2 5 AM EST 11/08/2022 10:25 AM EST us [facility] External Provider LAB BLO OD ORDERABLES Final Result [facility] [address] [place] [address] [phone] * Hemoglobin A1c (11/08/2022 10:25 AM EST) Hemoglobin A1c 6.2 % [facility] Comment:Hemoglobin A1C Refer ence Range Adults: 4.8 - 6.0 % Non diabetic: < 6.0 % Goal: < 7.0 %Additional Action Suggested: > 8.0 %Note: Hemoglobin A1c results are invalid for patients with abnormal amounts of HbF. Blood transfusions may impact the HbA1c concentration in the patient sample. Estimated Average Glucose 131 mg/dL [facility] Comment:eAG = Estimated ave rage glucose which is %A1C expressed asaverage glucose, using the formula of the S3G-UpnpcuvDktjzfp Glucose study (ADAG), Diabetes Care, Vol.31,#8,2007 11/08/2022 10:2 5 AM EST 11/08/2022 10:25 AM EST us [facility] External Provider LAB BLO OD ORDERABLES Final Result [facility] [address] [place] [phone] * (ABNORMAL) CBC auto differential (11/08/2022 10:25 AM EST) White Blood Count 3.9(L) 4.8 - 10.8 X10*3/uL [facility] Red Blood Count 4.47 4.20 - 5.50 X10*6/uL [facility] Hemoglobin 12.2 12.0 - 16.0 g/dl [facility] Hematocrit 38.1 37.0 - 47.0 % [facility] Mean Corpuscular Volume 85.2 80.0 - 98.0 fL [facility] Mean Corpuscular Hemoglobin 27.3 27.0 - 33.0 pg [facility] Mean Corpuscular HGB Conc 32.0 31.0 - 35.0 g/dl [facility] Red Cell Distribution Width 14.4 11.0 - 16.0 % [facility] Platelet Count 178 160 - 400 X10*3/uL [facility] Mean Platelet Volume 11.4 9.4 - 12.3 fL [facility] Neutrophils Percent Auto 65.0 45 - 73 % [facility] Imm Gran Pct Auto 0.3 0.0 - 0.4 % [facility] Lymphocytes Percent Auto 22.4 20 - 40 % [facility] Monocytes Percent Auto 8.7 2 - 11 % [facility] Eosinophils Percent Auto 2.8 0 - 4 % [facility] Basophils Percent Auto 0.8 0 - 2 % [facility] NRBC Pct Auto 0.0 0.0 - 0.2 /100WBC [facility] Neutrophils Absolute Auto 2.6 2.0 - 8.3 x10*3/uL [facility] Imm Gran Abs Auto 0.01 0.00 - 0.03 X10*3/uL [facility] Lymphocytes Absolute Auto 0.9(L) 1.2 - 4.9 X10*3/uL [facility] Monocytes Absolute Auto 0.3 0.1 - 1.2 X10*3/uL [facility] Eosinophils Absolute Auto 0.1 0.0 - 0.4 X10*3/uL [facility] Basophils Absolute Auto 0.0 0.0 - 0.2 X10*3/uL [facility] NRBC Abs Auto 0.000 0.0 - 0.012 X10*3/uL [facility] 11/08/2022 10:2 5 AM EST 11/08/2022 10:25 AM EST [facility] External Provider LAB BLO OD ORDERABLES Final Result Performing Organization Address City/State/[facility] [[email or web address]] Co de Phone Number [facility] [address] [place] [address] [phone] documented in this encounter Visit Diagnoses Not on filedocumented in this encounter Care Teams Dye Mixer Relationship Specialty Start Date End Date Name, MD Reynold [address] [place] [address] PCP - General Family Medicine 12/26/15 documented as of this encounter
--- OUTSIDE RECORDS SUMMARY | 2024-10-31 15:05 | XMS_ITS | Encounter Summary ---
Author Organization [employer] Address [address] [facility] 7t [place] [address] Care Team Providers Care Public Relations Analyst Name Role Phone Name, Reynold FAUST Primary Care Provider [phone] Reason for Visit * Reason Comments Med Refill Encounter Details Date Type Department Care Team ([facility] st Contact Info) Description 02/28/2024 Refill [facility] MEDICINE 230 [place] [address] Name, MD Reynold 230 [place] [address] Chronic cough Social History Tobacco Use Types [...] Description 11/01/2024 9:45 AM EST Office Visit [address] [address] 11/16/2024 2:30 PM EST Office Visit [address] [address] NameReynold MD [address] [place] [address] 12/09/2024 10:45 AM EDT Office Visit [address] [address] Dayron Rowell MD [address] [place] [address] documented as of this encounter Visit Diagnoses Diagnosis Chronic cough Cough documented in this encounter Additional Health Concerns Assessment Noted Time PHQ-9 Depression Total Score: 7 12/11/19 24 11:10 AM EDT documented as of this encounter Care Teams Public Relations Analyst Relationship Specialty Start Date End Date Reynold Crowell MD [address] [place] [address] PCP - General Family Medicine 12/26/15 documented as of this encounter
--- OUTSIDE RECORDS SUMMARY | 2024-10-31 15:05 | XMS_ITS | Encounter Summary ---
Author Organization [employer] Address [address] [facility] 7t [place] [address] Care Team Providers Care Linotype Operator Name Role Phone Name, Reynold FAUST Primary Care Provider [phone] Reason for Visit * Reason Comments Med Refill Encounter Details Date Type Department Care Team ([facility] st Contact Info) Description 06/11/2024 Refill [facility] MEDICINE [address] [place] [address] Name, MD Reynold [address] [place] [address] Essential hypertension Social History Tobacco Use Types [...] Description 11/01/2024 9:45 AM EST Office Visit [address] [address] 11/16/2024 2:30 PM EST Office Visit [address] [address] Reynold Crowell MD [address] [place] [address] 12/09/2024 10:45 AM EDT Office Visit [address] [address] Dayron Rowell MD [address] [place] [address] documented as of this encounter Visit Diagnoses Diagnosis Essential hypertension Unspecified essential hypertension documented in this encounter Additional Health Concerns Assessment Noted Time PHQ-9 Depression Total Score: 7 12/11/19 24 11:10 AM EDT documented as of this encounter Care Teams Linotype Operator Relationship Specialty Start Date End Date Reynold Crowell MD [address] [place] [address] PCP - General Family Medicine 12/26/15 documented as of this encounter
--- OUTSIDE RECORDS SUMMARY | 2024-10-31 15:05 | XMS_ITS | Encounter Summary ---
Author Organization [employer] Address [address] [place] [address] 7 [place] [address] Care Team Providers Care Tool Polishing Machine Operator Name Role Phone Name, Reynold FAUST Primary Care Provider [phone] Encounter Details Date Type Department Care Team (Latest Contact Info) Description 10/10/2020 Abstract [facility] Dental, Provider, DDS Social History [...] Description 11/01/2024 9:45 AM EST Office Visit [address] [address] 11/16/2024 2:30 PM EST Office Visit [address] [address] Name, MD Reynold [address] [place] [address] 12/09/2024 10:45 AM EDT Office Visit [address] [address] Dayron Rowell MD [address] [place] [address] documented as of this encounter Visit Diagnoses Not on filedocumented in this encounter Care Teams Tool Polishing Machine Operator Relationship Specialty Start Date End Date Name, MD Reynold [address] [place] [address] PCP - General Family Medicine 12/26/15 documented as of this encounter
--- OUTSIDE RECORDS SUMMARY | 2024-10-31 15:05 | XMS_ITS | Encounter Summary ---
Author Organization [employer] Address [address] [place] [address] 7 [place] [address] Care Team Providers Care Rental Car Ferry Driver Name Role Phone Name, Reynold FAUST Primary Care Provider [phone] Encounter Details Date Type Department Care Team (Late st Contact Info) Description 11/11/2022 Orders Only [facility] MEDICINE [address] [place] [address] Valeria Heredia LPN Social History Tobacco Use [...] Description 11/01/2024 9:45 AM EST Office Visit [address] [address] 11/16/2024 2:30 PM EST Office Visit [address] [address] Name, MD Reynold [address] [place] [address] 12/09/2024 10:45 AM EDT Office Visit [address] [phone] Dayron Rowell MD [address] [place] [address] documented as of this encounter Procedures Procedure Name Priority Date/Time Associated Diagnosis Comments XR CHEST 2 VIEWS Routine 11/28/2022 4:19 PM EST documented in this encounter Results * XR Chest 2 Views (11/28/2022 4:19 PM EST) Anatomical Region Laterality Modality Chest Radiographic Milla ging 11/28/2022 4:19 PM EST Narrative 11/29/2022 12:42 PM EST ? [facility] ?[address] ?[place] [address] ?XRay Report ? Signed ? Patient: Cece Espinosa ?MR#: [id number] ?? [id number] ? : 1965 ?Acct:[id number] ? Age/Sex: 57 / F ?ADM Date: 11/28/22 ? Loc: HO.XRAY ? Attending Dr: Reynold Crowell MD ? Ordering Physician: Reynold Crowell MD ?? Date of Service: 11/28/22 ?? Procedure(s): XR chest 2V ?? Accession Number(s): [id number] ? cc: Reynold Crowell MD ? EXAMINATION: [...] ? DD/DT: 03// 1619 ? TD/TT: ? Tap Out Operator: DELEON ? Procedure Note Douglas Isbell - 11/29/2022 [facility] [address] [place] [address] XRay Report Signed Patient: Cece EspinosaMR#: [id number] : 1965Acct:[id number] Age/Sex: 57 / FADM Date: 11/28/22 Loc: HO.XRAY Attending Dr: Reynold Crowell MD Ordering Physician: Reynold Crowell MD Date of Service: 11/28/22 Procedure(s): XR chest 2V Accession Number(s): [id number] cc: Reynold Crowell MD EXAMINATION: XR CHEST [...] in OV> 11/29/22 1239 DD/ 1619 TD/TT: Tap Out Operator: DELEON [facility] External Provider IMG XR PROCEDURES Final Result documented in this encounter Visit Diagnoses Not on filedocumented in this encounter Care Teams Rental Car Ferry Driver Relationship Specialty Start Date End Date Name, MD Reynold [address] [place] [address] PCP - General Family Medicine 12/26/15 documented as of this encounter
--- OUTSIDE RECORDS SUMMARY | 2024-10-31 15:05 | XMS_ITS | Encounter Summary ---
Author Organization [employer] Address [address] [facility] 7t [place] [address] Care Team Providers Care Skates Operator Name Role Phone Name, Reynold FAUST Primary Care Provider [phone] Reason for Visit * Reason Comments Med Refill Encounter Details Date Type Department Care Team ([facility] st Contact Info) Description 10/19/2024 Refill [facility] MEDICINE [address] [place] [address] Name, MD Reynold [address] [place] [address] Chronic pain syndrome Social History Tobacco Use [...] Description 11/01/2024 9:45 AM EST Office Visit [address] [address] 11/16/2024 2:30 PM EST Office Visit [address] [address] Reynold Crowell MD [address] [place] [address] 12/09/2024 10:45 AM EDT Office Visit [address] [address] Dayron Rowell MD [address] [place] [address] documented as of this encounter Visit Diagnoses Diagnosis Chronic pain syndrome documented in this encounter Additional Health Concerns Assessment Noted Time PHQ-9 Depression Total Score: 7 12/11/19 24 11:10 AM EDT documented as of this encounter Care Teams Skates Operator Relationship Specialty Start Date End Date Reynold Crowell MD [address] [place] [address] PCP - General Family Medicine 12/26/15 documented as of this encounter
--- OUTSIDE RECORDS SUMMARY | 2024-10-31 15:05 | XMS_ITS | Encounter Summary ---
Author Organization [employer] Address [address] [facility] 7t [place] [address] Care Team Providers Care Recruiting Intern Name Role Phone Name, Reynold FAUST Primary Care Provider Reason for Visit * Reason Onset Date Comments Nurse Triage 08/16/2024 Encounter Details Date Type Department Care Team ([facility] st Contact Info) Description 08/16/2024 Telephone [facility] MEDICINE [address] [place] [address] Name, MD Reynold [address] [place] [address] Nurse Triage Social History Tobacco Use Types [...] transportation but, will call to come to [facility] for Thursday evening. Pt agrees with disposition [...] Description 11/01/2024 9:45 AM EST Office Visit [address] [address] 11/16/2024 2:30 PM EST Office Visit [address] [address] Name, MD Reynold [address] [place] [address] 12/09/2024 10:45 AM EDT Office Visit [address] [address] Dayron Rowell MD [address] [place] [address] documented as of this encounter Visit Diagnoses Not on filedocumented in this encounter Additional Health Concerns Assessment Noted Time PHQ-9 Depression Total Score: 7 12/11/19 24 11:10 AM EDT documented as of this encounter Care Teams Recruiting Intern Relationship Specialty Start Date End Date Name, MD Reynold [address] [place] [address] PCP - General Family Medicine 12/26/15 documented as of this encounter
--- OUTSIDE RECORDS SUMMARY | 2024-10-31 15:05 | XMS_ITS | Encounter Summary ---
Author Organization [employer] Address [address] [facility] 7t [place] [address] Care Team Providers Care Abseiling Instructor Name Role Phone Name, Reynold FAUST Primary Care Provider [phone] Reason for Visit * Reason Onset Date Comments New Med Request 2024 Encounter Details Date Type Department Care Team ([facility] st Contact Info) Description 2024 Telephone [facility] MEDICINE 230 [place] [address] Name, MD Reynold [address] [place] [address] New Med Request Social History Tobacco Use [...] T/C to pt. For below message [place] - [id number], pt. Verbally greed and understood. * Telephone [...] Description 11/01/2024 9:45 AM EST Office Visit [address] [address] 11/16/2024 2:30 PM EST Office Visit [address] [address] NameReynold MD [address] [place] [address] 12/09/2024 10:45 AM EDT Office Visit [address] [address] Dayron Rowell MD [address] [place] [address] documented as of this encounter Visit Diagnoses Not on filedocumented in this encounter Additional Health Concerns Assessment Noted Time PHQ-9 Depression Total Score: 7 12/11/19 24 11:10 AM EDT documented as of this encounter Care Teams Abseiling Instructor Relationship Specialty Start Date End Date Reynold Crowell MD [address] [place] [address] PCP - General Family Medicine 12/26/15 documented as of this encounter
--- OUTSIDE RECORDS SUMMARY | 2024-10-31 15:05 | XMS_ITS | Encounter Summary ---
Author Organization [employer] Address [address] [place] [address] 7t [place] [address] Care Team Providers Care Road Grader Name Role Phone Name, Reynold FAUST Primary Care Provider [phone] Reason for Visit * Reason Comments Med Refill Encounter Details Date Type Department Care Team ([facility] Contact Info) Description 12/22/2022 Refill [facility] MED & PEDS [address] [place] [address] Name, MD Reynold [address] [place] [address] Rash Social History Tobacco Use Types Packs/Day [...] Upcoming Encounters Date Type Department Care Team ([facility] Contact Info) Description 11/01/2024 9:45 AM EST Office Visit [facility] MEDICINE [address] [place] [address] 11/16/2024 2:30 PM EST Office Visit [address] [address] Name, [place] [address] 12/09/2024 10:45 AM EDT Office Visit [address] [address] [place] [address] documented as of this encounter Visit Diagnoses Diagnosis Rash Rash and other nonspecific skin eruption documented in this encounter Care Teams Road Grader Relationship Specialty Start Date End Date Name, [place] [address] PCP - General Family Medicine 12/26/15 documented as of this encounter
--- OUTSIDE RECORDS SUMMARY | 2024-10-31 15:05 | XMS_ITS | Encounter Summary ---
Author Organization [employer] Address [address] [facility] 7t [place] [address] Care Team Providers Care Cell Room Supervisor Name Role Phone Name, Reynold FAUST Primary Care Provider [phone] Reason for Visit * Reason Comments Med Refill Encounter Details Date Type Department Care Team ([facility] st Contact Info) Description 10/19/2024 Refill [facility] MEDICINE 230 [place] [address] Name, MD Reynold [address] [place] [address] Social History Tobacco Use Types Packs/Day Years [...] 11/01/2024 9:45 AM EST Office Visit [address] [address] 11/16/2024 2:30 PM EST Office Visit [address] [address] NameReynold MD [address] [place] [address] 12/09/2024 10:45 AM EDT Office Visit [address] [address] Dayron Rowell MD [address] [place] [address] documented as of this encounter Visit Diagnoses Not on filedocumented in this encounter Additional Health Concerns Assessment Noted Time PHQ-9 Depression Total Score: 7 12/11/19 24 11:10 AM EDT documented as of this encounter Care Teams Cell Room Supervisor Relationship Specialty Start Date End Date Reynold Crowell MD [address] [place] [address] PCP - General Family Medicine 12/26/15 documented as of this encounter
--- OUTSIDE RECORDS SUMMARY | 2024-10-31 15:05 | XMS_ITS | Encounter Summary ---
Author Organization [employer] Address [address] [facility] [address] [place] [address] Care Team Providers Care Construction Manager Name Role Phone Name, Reynold FAUST Primary Care Provider [phone] Encounter Details Date Type Department Care Team [...] Description 11/01/2024 9:45 AM EST Office Visit [address] [address] 11/16/2024 2:30 PM EST Office Visit [address] [address] Name, MD Reynold [address] [place] [address] 12/09/2024 10:45 AM EDT Office Visit [address] [address] Dayron Rowell MD [address] [place] [address] [phone] documented as of this encounter Procedures Procedure Name Priority Date/Time Associated Diagnosis Comments CBC WITH AUTO DIFFERENTIAL Routine 10/06/2024 4:00 PM EST COMPREHENSIVE METABOLIC PANEL Routine 10/06/2024 4:00 PM EST documented in this encounter Results * (ABNORMAL) Comprehensive Metabolic Panel (10/06/2024 4:00 PM EST) Sodium 142 135 - 145 mmol/L [facility] Potassium 3.7 3.3 - 5.1 mmol/L [facility] Chloride 108 96 - 108 mmol/L [facility] Carbon Dioxide 27 22 - 29 mmol/L [facility] Anion Gap 11(L) 12 - 20 [facility] Urea Nitrogen (BUN) 21(H) 9 - 16 mg/dL [facility] Creatinine, Serum 0.95 0.5 - 1.4 mg/dL [facility] Estimated Glomerular Filt Rate >60 [facility] Comment:Chronic Kidney Disea se: Estimated GFR < 60 mL/min/1.43b3Cptiki Kidney Disease: Estimated GFR < 15 mL/min/1.73m2 Glucose 96 60 - 115 mg/dL [facility] Calcium 9.4 8.4 - 10.2 mg/dL [facility] Bilirubin, Total 0.3 0.0 - 1.0 mg/dL [facility] Aspartate Amino Transferase 41(H) 5 - 31 U/L [facility] Alanine Aminotransferase 37(H) 0 - 31 U/L [facility] Total Protein 8.5(H) 6.5 - 8.0 g/dL [facility] Albumin Level 4.2 3.5 - 5.0 g/dL [facility] Alkaline Phosphatase 78 39 - 117 U/L [facility] 10/06/2024 4:00 PM EST 10/06/2024 4:00 PM EST us Generic External Data Provider LAB BLOOD ORDERAB LES Final Result [facility] [address] [place] [phone] * (ABNORMAL) CBC auto differential (10/06/2024 4:00 PM EST) White Blood Count 5.5 4.8 - 10.8 X10*3/uL [facility] Red Blood Count 4.42 4.20 - 5.50 X10*6/uL [facility] Hemoglobin 12.2 12.0 - 16.0 g/dl [facility] Hematocrit 37.6 37.0 - 47.0 % [facility] Mean Corpuscular Volume 85.1 80.0 - 98.0 fL [facility] Mean Corpuscular Hemoglobin 27.6 27.0 - 33.0 pg [facility] Mean Corpuscular HGB Conc 32.4 31.0 - 35.0 g/dl [facility] Red Cell Distribution Width 14.9 11.0 - 16.0 % [facility] Platelet Count 179 160 - 400 X10*3/uL [facility] Mean Platelet Volume 11.4 9.4 - 12.3 fL [facility] Neutrophils Percent Auto 71.5 45 - 73 % [facility] Imm Gran Pct Auto 0.4 0.0 - 0.4 % [facility] Lymphocytes Percent Auto 17.9(L) 20 - 40 % [facility] Monocytes Percent Auto 8.2 2 - 11 % [facility] Eosinophils Percent Auto 1.6 0 - 4 % [facility] Basophils Percent Auto 0.4 0 - 2 % [facility] NRBC Pct Auto 0.0 0.0 - 0.2 /100WBC [facility] Neutrophils Absolute Auto 4.0 2.0 - 8.3 x10*3/uL [facility] Imm Gran Abs Auto 0.02 0.00 - 0.03 X10*3/uL [facility] Lymphocytes Absolute Auto 1.0(L) 1.2 - 4.9 X10*3/uL [facility] Monocytes Absolute Auto 0.5 0.1 - 1.2 X10*3/uL [facility] Eosinophils Absolute Auto 0.1 0.0 - 0.4 X10*3/uL [facility] Basophils Absolute Auto 0.0 0.0 - 0.2 X10*3/uL [facility] NRBC Abs Auto 0.000 0.0 - 0.012 X10*3/uL [facility] 10/06/2024 4:00 PM EST 10/06/2024 4:00 PM EST us Generic External Data Provider LAB BLOOD ORDERAB LES Final Result [facility] [address] [place] [address] [phone] documented in this encounter Visit Diagnoses Not on filedocumented in this encounter Additional Health Concerns Assessment Noted Time PHQ-9 Depression Total Score: 7 12/11/19 24 11:10 AM EDT documented as of this encounter Care Teams Construction Manager Relationship Specialty Start Date End Date Name, MD Reynold [address] [place] [address] PCP - General Family Medicine 12/26/15 documented as of this encounter
--- OUTSIDE RECORDS SUMMARY | 2024-10-31 15:05 | XMS_ITS | Clinical Summary ---
Author Organization [employer] Address [address] [facility] 7t [place] [address] Care Team Providers Care Water Filtration Technician Name Role Phone Name, Reynold FAUST Primary Care Provider [phone] Allergies Active Allergy Reactions Criticality Noted Date [...] PAIN 84 tablet 10/21/19 25 025 Active cloNIDine (Catapres) 0.1 MG tablet TAKE [...] Active Problems Problem Noted Date Diagnosed Date FPC (current) use of opiate analgesic 07/22 Overview (08/02/2024): Dx: Rx: Last [employer] agreement: Tier II (visit every 3 months) Additional considerations: Timeline: GAGANDEEP positive 12/10/2023 Chronic cough 12/10/2023 Esophageal dysphagia 12/10/2023 Overview (12/11/2023): [place] [address] Operative Note Signed Patient: Cece Espinosa MR#: [id number] : 1965 Acct:[id number] Age/Sex: 58 / F Loc: .[facility] Attending Dr: Kylee Mejias MD cc: Kylee [...] use 12/10/2023 Left breast lump 12/10/2023 12/11/2023 FPC methotrexate user 12/10/2023 12/11/2023 Screening for viral disease 12/10/2023 08/02/2024 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 11/02/2019 12/11/2023 Ductal carcinoma in situ (DC IS) of left breast 11/02/2019 12/11/2023 Nausea and vomiting 07/13/2017 12/11/19 24 Hidradenitis 07/10/2016 12/11/2023 Backache 03/04/2012 12/11/2023 Acute gastritis 2012 05/31/2024 Encounters Date Type Department Care Team Description 10/19/2024 Refill [facility] [address] [place] [address] Reynold Crowell MD Chronic pain syndrome 10/19/2024 Refill [facility] [address] [place] [address] Reynold Crowell MD 10/06/2024 Orders Only GENERIC EXTERNAL DATA DEPARTMENT Provider, Generic External Data 10/06/2024 Telephone [facility] [address] [place] [address] Reynold Crowell MD Appointment Request 09/27/2024 Refill [facility] [address] [place] [address] Reynold Crowell MD Rash 09/23/2024 Refill [facility] [address] [place] [address] Reynold Crowell MD Chronic pain syndrome 09/13/2024 Telephone [facility] [address] [place] [address] Tommy Malave [place] feb recalls 09/06/2024 Orders Only GENERIC EXTERNAL DATA DEPARTMENT Provider, Generic External Data 09/03/2024 Refill [facility] [address] [place] [address] Reynold Crowell MD Essential hypertension 08/25/2024 Refill [facility] [address] [place] [address] Reynold Crowell MD Chronic pain syndrome 08/21/2024 Refill [facility] [address] [place] [address] Reynold Crowell MD 08/16/2024 Telephone [facility] [address] [place] [address] Reynold Crowell MD Nurse Triage 08/02/2024 9:45 AM EST Office Visit [facility] [address] [place] [address] Debo Owusu MD Primary osteoarthritis of right knee (Primary Dx); Rheumatoid arthritis involving multiple sites, unspecified whether rheumatoid factor present ([facility]); FPC (current) use of opiate analgesic 08/02/2024 Travel from Last 3 Months Immunizations Name Administration [...] Description 11/01/2024 9:45 AM EST Office Visit [address] [address] 11/16/2024 2:30 PM EST Office Visit [address] [address] Name, MD Reynold [address] [place] [address] 12/09/2024 10:45 AM EDT Office Visit [address] [address] Dayron Rowell MD [address] [place] [address] Health Maintenance Due Date Last Done Comments [...] Dental Prophylaxis 04/10/2021 10/10/2020 COVID-19 Vaccine ( season) 2024 Influenza Vaccine (#1) 2024 Dental [...] DRUG SCREEN Routine 08/02/2024 2:15 PM EST FPC (current) use of opiate analgesic LIPID PANEL, [...] Blood Count 5.5 4.8 - 10.8 X10*3/uL [facility] Red Blood Count 4.42 4.20 - 5.50 X10*6/uL [facility] Hemoglobin 12.2 12.0 - 16.0 g/dl [facility] Hematocrit 37.6 37.0 - 47.0 % [facility] Mean Corpuscular Volume 85.1 80.0 - 98.0 fL [facility] Mean Corpuscular Hemoglobin 27.6 27.0 - 33.0 pg [facility] Mean Corpuscular HGB Conc 32.4 31.0 - 35.0 g/dl [facility] Red Cell Distribution Width 14.9 11.0 - 16.0 % [facility] Platelet Count 179 160 - 400 X10*3/uL [facility] Mean Platelet Volume 11.4 9.4 - 12.3 fL [facility] Neutrophils Percent Auto 71.5 45 - 73 % [facility] Imm Gran Pct Auto 0.4 0.0 - 0.4 % [facility] Lymphocytes Percent Auto 17.9(L) 20 - 40 % [facility] Monocytes Percent Auto 8.2 2 - 11 % [facility] Eosinophils Percent Auto 1.6 0 - 4 % [facility] Basophils Percent Auto 0.4 0 - 2 % [facility] NRBC Pct Auto 0.0 0.0 - 0.2 /100WBC [facility] Neutrophils Absolute Auto 4.0 2.0 - 8.3 x10*3/uL [facility] Imm Gran Abs Auto 0.02 0.00 - 0.03 X10*3/uL [facility] Lymphocytes Absolute Auto 1.0(L) 1.2 - 4.9 X10*3/uL [facility] Monocytes Absolute Auto 0.5 0.1 - 1.2 X10*3/uL [facility] Eosinophils Absolute Auto 0.1 0.0 - 0.4 X10*3/uL [facility] Basophils Absolute Auto 0.0 0.0 - 0.2 X10*3/uL [facility] NRBC Abs Auto 0.000 0.0 - 0.012 X10*3/uL [facility] 10/06/2024 4:00 PM EST 10/06/2024 4:00 PM EST us Generic External Data Provider LAB BLOOD ORDERAB LES Final Result [facility] [address] [place] [address] [phone] * (ABNORMAL) Comprehensive Metabolic Panel (10/06/2024 4:00 PM EST) Sodium 142 135 - 145 mmol/L [facility] Potassium 3.7 3.3 - 5.1 mmol/L [facility] Chloride 108 96 - 108 mmol/L [facility] Carbon Dioxide 27 22 - 29 mmol/L [facility] Anion Gap 11(L) 12 - 20 [facility] Urea Nitrogen (BUN) 21(H) 9 - 16 mg/dL [facility] Creatinine, Serum 0.95 0.5 - 1.4 mg/dL [facility] Estimated Glomerular Filt Rate >60 [facility] Comment:Chronic Kidney Disea se: Estimated GFR < 60 mL/min/1.32v4Qsqpsx Kidney Disease: Estimated GFR < 15 mL/min/1.73m2 Glucose 96 60 - 115 mg/dL [facility] Calcium 9.4 8.4 - 10.2 mg/dL [facility] Bilirubin, Total 0.3 0.0 - 1.0 mg/dL [facility] Aspartate Amino Transferase 41(H) 5 - 31 U/L [facility] Alanine Aminotransferase 37(H) 0 - 31 U/L [facility] Total Protein 8.5(H) 6.5 - 8.0 g/dL [facility] Albumin Level 4.2 3.5 - 5.0 g/dL [facility] Alkaline Phosphatase 78 39 - 117 U/L [facility] 10/06/2024 4:00 PM EST 10/06/2024 4:00 PM EST us Generic External Data Provider LAB BLOOD ORDERAB LES Final Result [facility] [address] [place] [address] [phone] * Hematoxylin and Eosin Stain (09/06/2024 1:35 PM EST) 09/06/2024 1:35 PM EST 09/06/2024 2:10 PM EST Narrative [facility] - 09/08/2024 3:57 PM EST ----- ------- Name: Cece Espinosa ? Age/Sex: 59/F ? : 1965 Unit#: [id number] ?? Attend Dr: Kylee Mejias MD ?Re09/06/24 ?Status: DEP SDC ? Location: HO.SSS ?Disch: ? ----- ------- SPEC : [id number] ? RECD: 09/06/24-0 ? STATUS: ??SOUT ? REQ NUM: [id number] ? LEVI: 09/06/24-5 ? SUBM DR: Kylee Mejias MD ? ENTERED: ??09/06/24-0324 ?SP TYPE: Surgical ? OTHR DR: Reynold [...] ? Age/Sex: 59/F ? : 1965 Unit#: [id number] ?? Attend Dr: Kylee Mejias MD ?Re09/06/24 ?Status: DEP SDC ? Location: HO.SSS ?Disch: ? ----- ------- SPEC : [id number] ? RECD: 09/06/24-0210 ? STATUS: ??SOUT ? REQ NUM: [id number] ? LEVI: 09/06/24-5249 ? SUBM DR: Kylee Mejias MD ? ENTERED: ??09/06/24-4 ?SP TYPE: Surgical ? OTHR DR: Reynold [...] Copies To: ?? Kylee Mejias MD ?? [facility] ?? [address] ?? [place] [address] ?? [phone] ?? Reynold Crowell MD ?? [address] [facility] ?? [place] [address] ?? [phone] ----- ------- Signed (signature on file) Warren Klein MD 09/08/24 1557 ? ----- ------- ? END OF REPORT ? us Generic External Data Provider LAB BLOOD ORDERAB LES Final Result Performing Organization Address City/State/RUST Co de Phone Number [facility] [address] [place] [phone] * POCT ANIKA-14 Urine Drug Screen (08/02/2024 2:15 PM EST) Benzodiazepines Screen, Urine Positive Urine Urine specimen obtained by clean catch procedure / Unknown 08/02/2024 2:15 PM EST Narrative Susy Cervantes RN - 08/02/2024 2:15 PM EST .UTOX cup Lot#[id number] Exp. 08/27/2025 Internal Pass Control UTOX was negative for FENT us Debo Owusu MD POINT OF CARE TEST ENTER/EDIT ORDERABLES Final Result * (ABNORMAL) Lipid Panel, Standard (05/14/2024 9:34 AM EDT) Triglycerides 132 <150 mg/dL [facility] Comment:Desirable Triglyceri de: less than 150 mg/dLBorderline High Triglyceride 150-199 mg/dLHigh Triglyceride: 200-499 mg/dLVery High Triglyceride: greater than or equal to 5OO mg/dL Cholesterol 218(H) <200 mg/dL [facility] Comment:Desirable Cholestero l: less than 200 mg/dLBorderline High Cholesterol: 200-239 mg/dLHigh Cholesterol: greater than 239 mg/dL LDL Cholesterol Calculated 130(H) <100 mg/dL [facility] Comment:Desirable LDL: less than 100 mg/dLNear Optimal/Above Optimal LDL: 110- 129 mg/dLBorderline High LDL: 130-159 mg/dLHigh LDL: 160-189 mg/dLVery High LDL: greater than or equal to 190 mg/dL HDL Cholesterol 62 >40 mg/dL [facility] Comment:Desirable HDL: great er than 40 mg/dL Note: This HDL assay may give artificially low results in patients with liver disease. Blood Venous blood specimen / Unknown 05/14/2024 9:34 AM EDT 05/14/2024 9:34 AM EDT us Reynold Name MD LAB BLOOD ORDERABLES Final Resul t [facility] [address] [place] [address] [phone] * BI Mammogram Diagnostic Tomosynthesis Right (04/13/2024 2:10 PM EDT) Anatomical Region Laterality Modality Breast Right Mammography 04/13/2024 2:10 PM EDT Narrative 04/13/2024 3:18 PM EDT ? [facility] [place] ? [address] [facility] ?[place] [address] ? Mammography Report ? Signed ? Patient: Isaías Maurer,Cece ?MR#: [id number] ?? [id number] ? : 1965 ?Acct:[id number] ? Age/Sex: 59 / F ?ADM Date: /24/24 ? Loc: HO.MAMMO ? Attending Dr: Phillip Acuna MD ? Ordering Physician: Phillip Acuna MD ?Results: 2Beni ?? gn Findings ? Date of Service: 04/13/24 ?Follow Up: 1 Year From Orig ?? inal Mammogram ? Procedure(s): MM tomosynthesis diagnostic RT ?? Accession Number(s): [id number] ? cc: Phillip Acuna MD; Name,Reynold FAUST [...] 1513 ? DD/ 1410 ? TD/TT: ? Business Account Manager: ? Procedure Note Sukhi, Douglas - 04/13/2024 [facility] [address] [place] [address] Mammography Report Signed Patient: Isaías MaurerCece#: [id number] : 1965Acct:[id number] Age/Sex: 59 / FADM Date: 04/13/24 Loc: HO.MAMMO Attending Dr: Phillip Acuna MD Ordering Physician: Phillip Acuna MDResults: 2Beni gn Findings Date of Service: 04/13/24Follow Up: 1 Year From [facility] Mammogram Procedure(s): MM tomosynthesis diagnostic RT Accession Number(s): [id number] cc: Phillip Acuna MD; Name,Reynold FAUST EXAMINATION: [...] in OV> 04/13/24 1513 DD/ 1410 TD/TT: Business Account Manager: [facility] External Provider IMG BI PROCEDURES Final Result * (ABNORMAL) Hemoglobin A1c (12/12/2023 10:31 AM EDT) Hemoglobin A1c 6.1(H) <6.0 % [facility] Comment:Hemoglobin A1C Refer ence Range Adults: 4.8 - 6.0 % Non diabetic: < 6.0 % Goal: < 7.0 %Additional Action Suggested: > 8.0 %Note: Hemoglobin A1c results are invalid for patients with abnormal amounts of HbF. Blood transfusions may impact the HbA1c concentration in the patient sample. Estimated Average Glucose 128 mg/dL [facility] Comment:eAG = Estimated ave rage glucose which is %A1C expressed asaverage glucose, using the formula of the [id number]-[id number] Glucose study (ADAG), Diabetes Care, Vol.31,#8,Apr. 2007 Blood Venous blood specimen / Unknown 12/12/2023 10:31 AM EDT 12/12/2023 10:32 AM EDT Reynold Crowell MD LAB BLOOD ORDERABLES Final Resul t [facility] [address] [place] [address] [phone] * Hepatitis Panel, General (01/02/2023 3:20 PM EDT) Hepatitis A IgM Nonreactive Nonreactive [facility] Comment:IgM antibodies to CORONADO V not detected; does not exclude earlyacute or recovered HAV infection. ~Hepatitis B Surface Antibody REACTIVE Nonreactive [facility] Comment:REACTIVE: > 11.99 mI U/mL Hepatitis B Core Antibody Nonreactive Nonreactive [facility] Hepatitis C Antibody Nonreactive Nonreactive [facility] Comment:Antibodies to HCV no t detected; does not exclude early acuteHCV infection. Hepatitis B Surface Ag Negative Negative [facility] 01/02/2023 3:20 PM EDT 01/02/2023 3:20 PM EDT [facility] External Provider LAB BLO OD ORDERABLES Final Result [facility] [address] [place] [phone] * (ABNORMAL) THINPREP TIS PAP AND [...] been evaluated with computer assisted technology. [facility] Lasting Floorworker : SEE COMMENT [facility] Comment: DCR, CT(ASCP) CT screening location: [address] ??[address] HPV nRNA E6/E7 Detected(A) Not Detected [facility] Comment: Methodology: Hospital Scientist-Mediated Amplification This assay detects E6/E7 viral messenger RNA (mRNA) from 14 high-risk HPV types (16,18,31,33,35,39,45,51,52,56,58,59,66,68). ? Cervical sources are required for HPV testing. If a vaginal source from a patient who has had a total hysterectomy with removal of cervix was ?? submitted, please contact the testing laboratory for alternative testing options. ?? For additional information, please refer to http://education.[employer]/faq/LFC601c3 (This link if provided for information/ educational purposes only.) Interpretation/R esult: Negative for intraepithelial lesion or malignancy. [facility] LMP: MENOPAUSAL [facility] PATHOLOGIST: SEE COMMENT CONVE RT[facility] Comment: Chris Bai M.D., Direct , Board Certified in Anatomic Pathology and Cytopathology (electronic signature) Consulting Pathologist [facility] [address] [place] [address] Prev. BX: NONE GIVEN [facility] Prev. PAP: NIL HPV - 2020 CONV ERTED [facility] SOURCE: Cervix [facility] Statement Of Adequacy: SEE COMMENT [facility] Comment: Satisfactory for evaluation. Endocervical/transformation zone component present. 07/30/2022 9:52 AM EST Janae Maldonado [facility] LAB PATHOLOGY ORDERABLES Final Result [facility] * HPV GENOTYPES 16,18/45 (07/30/2022 9:52 AM EST) HPV 16 RNA NOT DETECTED NOT DETECTED [facility] HPV 18/45 RNA NOT DETECTED NOT DETECTED [facility] Comment: Methodology: Hospital Scientist Mediated Amplification Cervical sources are required for HPV testing. If a vaginal source from a patient who has had a total hysterectomy with removal of cervix was submitted, please contact the testing laboratory for alternative testing options. 07/30/2022 9:52 AM EST Janae Maldonado [facility] LAB BLOOD ORDERABLES Megan l Result [facility] from Last 3 Months or Most Recently Relevant to Health Maintenance Insurance * Guarantor: Cece Espinosa Account Type Relation to Patient Date of Phone Billing Address Personal/Family Self [address] [place] [address] [facility] * Guarantor: Cece Espinosa Account Type Relation to Patient Date of Phone Billing Address Dental Self [address] [place] [address] DENTAL - [facility] * Guarantor: Cece Espinosa Account Type Relation to Patient Date of Phone Billing Address Personal/Family Self [address] [place] [address] * Guarantor: Cece Espinosa Account Type Relation to Patient Date of Phone Billing Address Personal/Family Self [address] [place] [address] * Guarantor: Cece Espinosa Account Type Relation to Patient Date of Phone Billing Address Personal/Family Self [address] [place] [address] Care Teams Water Filtration Technician Relationship Specialty Start Date End Date Name, MD Reynold [address] [place] [address] PCP - General Family Medicine 12/26/15
[2024-11-01 04:36] LABS: HBS Num1 15.59 mIU/mL (0-7.99); HBc Num1 0.72 S/CO (0.00-0.79); HBsAGNum1 0.33 S/CO (0.00-0.99); Hepatitis A Antibody IgM 0.41 Index (0-0.79); Hepatitis B Core Antibody Nonreactive (Nonreactive); Hepatitis B Surface Antigen Negative (Negative); ~HepC Num1 0.16 S/CO (0.00-0.79); ~Hepatitis A Antibody IgM Nonreactive (Nonreactive); ~Hepatitis B Surface Antibody REACTIVE (Nonreactive); ~Hepatitis C Antibody Nonreactive (Nonreactive)
[2024-11-03 01:28] LABS: TS Negative Control Passed; TS Panel A 1; TS Panel B 0; TS Positive Control Passed; TSpotTB Negative (Negative)
== END 2024-10-31 13:54 | disposition home or self-care (01) ==
LOC: HO.LAB 13:53
PROVIDERS: PCP Internal Medicine Geriatric Medicine; Visit Provider Student in an Organized Health Care Education/Training Program
DX: M06.09 Rheumatoid arthritis without rheumatoid factor, multiple sites (principal); Z11.1 Encounter for screening for respiratory tuberculosis; Z11.59 Encounter for screening for other viral diseases; Z72.89 Other problems related to lifestyle
CPT/HCPCS: 36415; 86481; 86704; 86706; 86709; 86803; 87340

== ENCOUNTER 2024-11-10 13:14 | Outpatient (REF) | payer OTHER, SELFPAY ==
--- NOTE | ~2024-11-10 | MM_ITS ---
EXAMINATION: MM SCREENING DIGITAL BREAST TOMOSYNTHESIS, BILATERAL CLINICAL INFORMATION: Screening. Asymptomatic. History of bilateral breast cancer status post lumpectomy and conservation therapy. Shouldn't has persistent right breast pain same as March 2024 for which she had diagnostic workup. COMPARISON: Mammography: Comparison is made with available priors TECHNIQUE: Digital breast mammography with tomosynthesis is performed in both the craniocaudal and mediolateral oblique views along with computer-aided detection (CAD). FINDINGS: The breasts are heterogeneously dense, which may obscure small masses (ACR BI-RADS breast composition Category c). Bilateral post lumpectomy changes are stable. There are no significant masses, abnormal calcifications, or other abnormalities. MM/MM tomosynthesis screening BI IMPRESSION: No mammographic evidence of malignancy. Patient has right breast pain and intermittent palpable lump and breast pruritus. Recommend clinical evaluation and if there is focal lump and or pain or if deemed clinically significant a diagnostic workup can be ordered and performed. ASSESSMENT: BI-RADS BI-RADS 2 - Benign Findings RECOMMENDATION: Routine annual mammography screening. 1 year F/U This examination should not preclude the clinical evaluation of a suspicious palpable abnormality. This patient's information was entered into a reminder system with a target due date for their next mammogram. Electronically signed by: Gracia Ordoñez DO 11/10/2024 02:35 PM WANDA
--- OUTSIDE RECORDS SUMMARY | 2024-11-10 14:07 | XMS_ITS | Encounter Summary ---
Author Organization [employer] Address [address] [place] [address] 7 [place] [address] Care Team Providers Care Follow Up Manager Name Role Phone Name, Reynold FAUST Primary Care Provider [phone] Reason for Visit * Reason Comments Med Refill Encounter Details Date Type Department Care Team (Late st Contact Info) Description 03/11/2023 Refill [facility] [address] [place] [address] Name, MD Reynold [address] [place] [address] Chronic cough Social History Tobacco Use Types [...] Care Team (Late st Contact Info) Description 11/11/2024 1:30 PM EST Office Visit [facility] [address] [place] [address] Elisabet Greer, DDS [address] [place] [address] 11/16/2024 2:30 PM EST Office Visit [facility] [address] [place] [address] [place] [address] Name, MD Reynold [facility] [place] [address] 12/09/2024 10:45 AM EDT Office Visit [address] [address] Dayron Rowell MD [address] [place] [phone] 12/27/2024 9:45 AM EDT Office Visit [facility] [place] [address] documented as of this encounter Visit Diagnoses Diagnosis Chronic cough Cough documented in this encounter Care Teams Follow Up Manager Relationship Specialty Start Date End Date Name, [place] [address] PCP - General Family Medicine 12/26/15 documented as of this encounter
--- OUTSIDE RECORDS SUMMARY | 2024-11-10 14:07 | XMS_ITS | Encounter Summary ---
Author Organization [employer] Address [address] [place] [address] 7 [place] [address] Care Team Providers Care Novelty Twister Operator Name Role Phone Name, Reynold FAUST Primary Care Provider [phone] Reason for Visit * Reason Comments Med Refill Encounter Details Date Type Department Care Team (Late st Contact Info) Description 04/06/2023 Refill [facility] MEDICINE [address] [place] [address] Name, MD Reynold [address] [place] [address] Chronic cough Social History Tobacco Use Types [...] Description 11/11/2024 1:30 PM EST Office Visit [facility] ADULT DENTAL [address] [place] [address] Elisabet Greer, DDS 230 [place] [address] 11/16/2024 2:30 PM EST Office Visit [facility] MEDICINE [address] [place] [address] Name, MD Reynold [facility] [place] [address] 12/09/2024 10:45 AM EDT Office Visit [address] [address] Dayron Rowell MD [address] [place] [address] 12/27/2024 9:45 AM EDT Office Visit [facility] [place] [address] documented as of this encounter Visit Diagnoses Diagnosis Chronic cough Cough documented in this encounter Care Teams Novelty Twister Operator Relationship Specialty Start Date End Date Name, [place] [address] PCP - General Family Medicine 12/26/15 documented as of this encounter
--- OUTSIDE RECORDS SUMMARY | 2024-11-10 14:07 | XMS_ITS | Encounter Summary ---
Author Organization [employer] Address [address] [place] [address] 7 [place] [address] Care Team Providers Care Bell Staff Name Role Phone Name, Reynold FAUST Primary Care Provider [phone] Reason for Visit * Reason Comments Med Refill Encounter Details Date Type Department Care Team (Late st Contact Info) Description 04/02/2023 Refill [facility] MEDICINE [address] [place] [address] Name, MD Reynold 230 [place] [address] Chronic cough Social History Tobacco Use Types [...] Description 11/11/2024 1:30 PM EST Office Visit [facility] ADULT DENTAL [address] [place] [address] Elisabet Greer, DDS 230 [place] [address] 11/16/2024 2:30 PM EST Office Visit [facility] MEDICINE [address] [place] [address] Name, MD Reynold [facility] [place] [address] 12/09/2024 10:45 AM EDT Office Visit [address] [address] Dayron Rowell MD [address] [place] [address] 12/27/2024 9:45 AM EDT Office Visit [facility] [place] [address] documented as of this encounter Visit Diagnoses Diagnosis Chronic cough Cough documented in this encounter Care Teams Bell Staff Relationship Specialty Start Date End Date Name, [place] [address] PCP - General Family Medicine 12/26/15 documented as of this encounter
--- OUTSIDE RECORDS SUMMARY | 2024-11-10 14:07 | XMS_ITS | Encounter Summary ---
Author Organization [employer] Address [address] [facility] 7t [place] [address] Care Team Providers Care Analyst Competitive Intelligence Name Role Phone Name, Reynold FAUST Primary Care Provider [phone] Reason for Visit * Reason Onset Date Comments Med Refill Reschedule CASHIER OR CHECKER STOCK CLERK RV she cancelled 02/02/23 06/05/20 Encounter Details Date Type Department Care Team (Late st Contact Info) Description 06/05/2023 Refill [facility] MED & PEDS [address] [place] [address] Name, MD Reynold 230 [place] [address] Chronic pain syndrome Social History Tobacco Use [...] 06/08/2023 10:55 AM EDT Pt was cancelled CASHIER OR CHECKER STOCK CLERK RV on 02/02/23 and has not rescheduled. TC to pt, no answer. L/M requesting she call to reschedule her CASHIER OR CHECKER STOCK CLERK RV she cancelled. documented in this encounter Plan of Treatment Upcoming Encounters Date Type Department Care Team (Late st Contact Info) Description 11/11/2024 1:30 PM EST Office Visit [facility] ADULT DENTAL [address] [place] [address] Elisabet Greer, DDS 230 [place] [address] 11/16/2024 2:30 PM EST Office Visit [facility] MEDICINE [address] [place] [address] Name, MD Reynold [address] [place] [address] 12/09/2024 10:45 AM EDT Office Visit [address] [address] Dayron Rowell MD [address] [place] [address] 12/27/2024 9:45 AM EDT Office Visit [address] [address] documented as of this encounter Visit Diagnoses Diagnosis Chronic pain syndrome documented in this encounter Care Teams Analyst Competitive Intelligence Relationship Specialty Start Date End Date Name, MD Reynold [address] [place] [address] PCP - General Family Medicine 12/26/15 documented as of this encounter
--- OUTSIDE RECORDS SUMMARY | 2024-11-10 14:07 | XMS_ITS | Encounter Summary ---
Author Organization [employer] Address [address] [facility] 7 [place] [address] Care Team Providers Care Yard Crane Operator Name Role Phone Name, Reynold FAUST Primary Care Provider [phone] Encounter Details Date Type Department Care Team (Late Contact Info) Description 03/30/2023 Orders Only [facility] MED & PEDS [address] [place], [place] [phone] Sadia Silva LPN Social History Tobacco Use [...] Encounters Date Type Department Care Team (Late Contact Info) Description 11/11/2024 1:30 PM EST Office Visit [facility] ADULT DENTAL 230 [place] [address] Elisabet Greer DDS 230 [place], [place] [phone] 11/16/2024 2:30 PM EST Office Visit [facility] MEDICINE 230 [place], [place] [phone] Name, MD Reynold 230 [place] [address] 12/09/2024 10:45 AM EDT Office Visit [address] [address] Dayron Rowell MD [address] [place] [address] 12/27/2024 9:45 AM EDT Office Visit [address] [address] documented as of this encounter Visit Diagnoses Not on filedocumented in this encounter Care Teams Yard Crane Operator Relationship Specialty Start Date End Date Name, MD Reynold [address] [place] [address] PCP - General Family Medicine 12/26/15 documented as of this encounter
--- OUTSIDE RECORDS SUMMARY | 2024-11-10 14:08 | XMS_ITS | Encounter Summary ---
Author Organization [employer] Address [address] [place] [address] 7 [place] [address] Care Team Providers Care Store Keeper Name Role Phone Name, Reynold FAUST Primary Care Provider [phone] Encounter Details Date Type Department Care Team (Late st Contact Info) Description 10/13/2022 Orders Only [facility] MED & PEDS [address] [place] [address] Sadia Silva LPN Social History Tobacco Use [...] Description 11/11/2024 1:30 PM EST Office Visit [facility] ADULT DENTAL [address] [place] [address] Solorzano-Arzate, Elisabet, DDS 230 [place] [address] 11/16/2024 2:30 PM EST Office Visit [facility] MEDICINE 230 [place] [address] Name, MD Reynold [address] [place] [address] 12/09/2024 10:45 AM EDT Office Visit [facility] MEDICINE [address] [place] [address] Dayron Rowell MD [address] [place] [address] 12/27/2024 9:45 AM EDT Office Visit [facility] [place] [place] [address] documented as of this encounter Procedures Procedure Name Priority Date/Time Associated Diagnosis Comments CBC WITH AUTO DIFFERENTIAL Routine 11/08/2022 10:25 AM EST HEMOGLOBIN A1C Routine 11/08/2022 10:25 AM EST LIPID PANEL, STANDARD Routine 11/08/2022 10:25 AM EST COMPREHENSIVE METABOLIC PANEL Routine 11/08/2022 10:25 AM EST documented in this encounter Results * Lipid Panel, Standard (11/08/2022 10:25 AM EST) Triglycerides 142 mg/dL [facility] Comment:Desirable Triglyceri de: less than 150 mg/dLBorderline High Triglyceride 150-199 mg/dLHigh Triglyceride: 200-499 mg/dLVery High Triglyceride: greater than or equal to 5OO mg/dL Cholesterol 225 mg/dL [facility] Comment:Desirable Cholestero l: less than 200 mg/dLBorderline High Cholesterol: 200-239 mg/dLHigh Cholesterol: greater than 239 mg/dL LDL Cholesterol Calculated 131 mg/dl [facility] Comment:Desirable LDL: less than 100 mg/dLNear Optimal/Above Optimal LDL: 110- 129 mg/dLBorderline High LDL: 130-159 mg/dLHigh LDL: 160-189 mg/dLVery High LDL: greater than or equal to 190 mg/dL HDL Cholesterol 66 mg/dL [facility] Comment:Desirable HDL: great er than 40 mg/dL Note: This HDL assay may give artificially low results in patients with liver disease. 11/08/2022 10:2 5 AM EST 11/08/2022 10:25 AM EST [facility] External Provider LAB BLO OD ORDERABLES Final Result [facility] [address] [place] [address] [phone] * (ABNORMAL) Comprehensive Metabolic Panel (11/08/2022 10:25 AM EST) Sodium 143 135 - 145 mmol/L [facility] Potassium 4.1 3.3 - 5.1 mmol/L [facility] Chloride 106 96 - 108 mmol/L [facility] Carbon Dioxide 27 22 - 29 mmol/L [facility] Anion Gap 14 12 - 20 [facility] Urea Nitrogen (BUN) 23(H) 9 - 16 mg/dL [facility] Creatinine, Serum 0.81 0.5 - 1.4 mg/dL [facility] Estimated Glomerular Filt Rate >60 [facility] Comment:NOTE: For -Am erican individuals, multiply the result by 1.210.Chronic Kidney Disease: Estimated GFR < 60 mL/min/1.35i0Vivhjr Kidney Disease: Estimated GFR < 15 mL/min/1.73m2 Glucose 107 60 - 115 mg/dL [facility] Calcium 9.5 8.4 - 10.2 mg/dL [facility] Bilirubin, Total 0.5 0.0 - 1.0 mg/dL [facility] Aspartate Amino Transferase 24 5 - 31 U/L [facility] Alanine Aminotransferase 27 0 - 31 U/L [facility] Total Protein 7.5 6.5 - 8.0 g/dL [facility] Albumin Level 4.2 3.5 - 5.0 g/dL [facility] Alkaline Phosphatase 79 39 - 117 U/L [facility] 11/08/2022 10:2 5 AM EST 11/08/2022 10:25 AM EST [facility] External Provider LAB BLO OD ORDERABLES Final Result Performing Organization Address [facility] Co de Phone Number [facility] [address] [place] [phone] * Hemoglobin A1c (11/08/2022 10:25 AM EST) Hemoglobin A1c 6.2 % [facility] Comment:Hemoglobin A1C Refer ence Range Adults: 4.8 - 6.0 % Non diabetic: < 6.0 % Goal: < 7.0 %Additional Action Suggested: > 8.0 %Note: Hemoglobin A1c results are invalid for patients with abnormal amounts of HbF. Blood transfusions may impact the HbA1c concentration in the patient sample. Estimated Average Glucose 131 mg/dL [facility] Comment:eAG = Estimated ave rage glucose which is %A1C expressed asaverage glucose, using the formula of the A0N-VxosddkVascktu Glucose study (ADAG), Diabetes Care, Vol.31,#8,2007 11/08/2022 10:2 5 AM EST 11/08/2022 10:25 AM EST [facility] External Provider LAB BLO OD ORDERABLES Final Result Performing Organization Address [facility] de Phone Number [facility] [address] [place] [phone] * (ABNORMAL) CBC auto differential (11/08/2022 10:25 AM EST) White Blood Count 3.9(L) 4.8 - 10.8 X10*3/uL [facility] Red Blood Count 4.47 4.20 - 5.50 X10*6/uL [facility] Hemoglobin 12.2 12.0 - 16.0 g/dl [facility] Hematocrit 38.1 37.0 - 47.0 % [facility] Mean Corpuscular Volume 85.2 80.0 - 98.0 fL [facility] Mean Corpuscular Hemoglobin 27.3 27.0 - 33.0 pg [facility] Mean Corpuscular HGB Conc 32.0 31.0 - 35.0 g/dl [facility] Red Cell Distribution Width 14.4 11.0 - 16.0 % [facility] Platelet Count 178 160 - 400 X10*3/uL [facility] Mean Platelet Volume 11.4 9.4 - 12.3 fL [facility] Neutrophils Percent Auto 65.0 45 - 73 % [facility] Imm Gran Pct Auto 0.3 0.0 - 0.4 % [facility] Lymphocytes Percent Auto 22.4 20 - 40 % [facility] Monocytes Percent Auto 8.7 2 - 11 % [facility] Eosinophils Percent Auto 2.8 0 - 4 % [facility] Basophils Percent Auto 0.8 0 - 2 % [facility] NRBC Pct Auto 0.0 0.0 - 0.2 /100WBC [facility] Neutrophils Absolute Auto 2.6 2.0 - 8.3 x10*3/uL [facility] Imm Gran Abs Auto 0.01 0.00 - 0.03 X10*3/uL [facility] Lymphocytes Absolute Auto 0.9(L) 1.2 - 4.9 X10*3/uL [facility] Monocytes Absolute Auto 0.3 0.1 - 1.2 X10*3/uL [facility] Eosinophils Absolute Auto 0.1 0.0 - 0.4 X10*3/uL [facility] Basophils Absolute Auto 0.0 0.0 - 0.2 X10*3/uL [facility] NRBC Abs Auto 0.000 0.0 - 0.012 X10*3/uL [facility] 11/08/2022 10:2 5 AM EST 11/08/2022 10:25 AM EST us [facility] External Provider LAB BLO OD ORDERABLES Final Result [facility] [address] [place] [address] [phone] documented in this encounter Visit Diagnoses Not on filedocumented in this encounter Care Teams Store Keeper Relationship Specialty Start Date End Date Name, MD Reynold [address] [place] [address] PCP - General Family Medicine 12/26/15 documented as of this encounter
--- OUTSIDE RECORDS SUMMARY | 2024-11-10 14:08 | XMS_ITS | Encounter Summary ---
Author Organization [employer] Address [address] [facility] 7t [place] [address] Care Team Providers Care Business Continuity Specialist Name Role Phone Name, Reynold FAUST Primary Care Provider [phone] Reason for Visit * Reason Comments Med Refill Encounter Details Date Type Department Care Team ([facility] st Contact Info) Description 10/19/[address] [facility] MEDICINE [address] [place] [address] Name, MD Reynold [address] [place] [address] Chronic pain syndrome Social History Tobacco Use [...] Description 11/11/2024 1:30 PM EST Office Visit [facility] ADULT DENTAL [address] [place] [address] Elisabet Greer DDS [address] [place] [address] 11/16/2024 2:30 PM EST Office Visit [facility] MEDICINE [address] [place] [address] Reynold Crowell MD [address] [place] [address] 12/09/2024 10:45 AM EDT Office Visit [address] [address] Dayron Rowell MD [address] [place] [address] 12/27/2024 9:45 AM EDT Office Visit [address] [address] documented as of this encounter Visit Diagnoses Diagnosis Chronic pain syndrome documented in this encounter Additional Health Concerns Assessment Noted Time PHQ-9 Depression Total Score: 7 12/11/19 24 11:10 AM EDT documented as of this encounter Care Teams Business Continuity Specialist Relationship Specialty Start Date End Date Reynold Crowell MD [address] [place] [address] PCP - General Family Medicine 12/26/15 documented as of this encounter
--- OUTSIDE RECORDS SUMMARY | 2024-11-10 14:08 | XMS_ITS | Encounter Summary ---
Author Organization [employer] Address [address] [facility] 7t [place] [address] Care Team Providers Care Suspect Artist Name Role Phone Name, Reynold FAUST Primary Care Provider [phone] Reason for Visit * Reason Comments Med Refill Encounter Details Date Type Department Care Team ([facility] st Contact Info) Description 02/28/2024 Refill [facility] MEDICINE [address] [place] [address] Name, MD Reynold [address] [place] [address] Chronic cough Social History Tobacco Use Types [...] Description 11/11/2024 1:30 PM EST Office Visit [facility] ADULT DENTAL [address] [place] [address] Elisabet Greer DDS [address] [place] [address] 11/16/2024 2:30 PM EST Office Visit [facility] MEDICINE [address] [place] [address] Reynold Crowell MD [address] [place] [address] 12/09/2024 10:45 AM EDT Office Visit [address] [address] Dayron Rowell MD [address] [place] [address] 12/27/2024 9:45 AM EDT Office Visit [address] [address] documented as of this encounter Visit Diagnoses Diagnosis Chronic cough Cough documented in this encounter Additional Health Concerns Assessment Noted Time PHQ-9 Depression Total Score: 7 12/11/19 24 11:10 AM EDT documented as of this encounter Care Teams Suspect Artist Relationship Specialty Start Date End Date Reynold Crowell MD [address] [place] [address] PCP - General Family Medicine 12/26/15 documented as of this encounter
--- OUTSIDE RECORDS SUMMARY | 2024-11-10 14:08 | XMS_ITS | Encounter Summary ---
Author Organization [employer] Address [address] [place] [address] 7 [place] [address] Care Team Providers Care Combination Machine Tool Setter Name Role Phone Name, Reynold FAUST Primary Care Provider [phone] Reason for Visit * Reason Comments Med Refill Encounter Details Date Type Department Care Team (Late st Contact Info) Description 03/13/2023 Refill [facility] MEDICINE [address] [place] [phone] Name, MD Reynold [address] [place] [address] Chronic cough Social History Tobacco Use Types [...] Visit [facility] ADULT DENTAL [address] [place] [address] Elisabet Greer, DDS [address] [place] [address] 11/16/2024 2:30 PM EST Office Visit [facility] MEDICINE [address] [place] [address] [place] [address] Name, MD Reynold [facility] [place] [address] 12/09/2024 10:45 AM EDT Office Visit [address] [address] Dayron Rowell MD [address] [place] [address] 12/27/2024 9:45 AM EDT Office Visit [facility] [place] [address] documented as of this encounter Visit Diagnoses Diagnosis Chronic cough Cough documented in this encounter Care Teams Combination Machine Tool Setter Relationship Specialty Start Date End Date Name, [place] [address] PCP - General Family Medicine 12/26/15 documented as of this encounter
--- OUTSIDE RECORDS SUMMARY | 2024-11-10 14:08 | XMS_ITS | Encounter Summary ---
Author Organization [employer] Address [address] [place] [address] 7 [place] [address] Care Team Providers Care Lacquer Pin Press Operator Name Role Phone Name, Reynold FAUST Primary Care Provider [phone] Encounter Details Date Type Department Care Team (Late st Contact Info) Description 11/11/2022 Orders Only [facility] MEDICINE [address] [place] [address] Valeria Heredia LPN Social History Tobacco Use [...] Description 11/11/2024 1:30 PM EST Office Visit [facility] ADULT DENTAL [address] [place] [address] SolorzanoElisabet Reyes, DDS 230 [place] [address] 11/16/2024 2:30 PM EST Office Visit [facility] MEDICINE [address] [place] [address] Name, MD Reynold [address] [place] [address] 12/09/2024 10:45 AM EDT Office Visit [facility] [place] [address] [place] [address] 12/27/2024 9:45 AM EDT Office Visit [facility] [place] [address] documented as of this encounter Procedures Procedure Name Priority Date/Time Associated Diagnosis Comments XR CHEST 2 VIEWS Routine 11/28/2022 4:19 PM EST documented in this encounter Results * XR Chest 2 Views (11/28/2022 4:19 PM EST) Anatomical Region Laterality Modality Chest Radiographic Milla ging 11/28/2022 4:19 PM EST Narrative 11/29/2022 12:42 PM EST ? [facility] ?[address] ?[place] [address] ?XRay Report ? Signed ? Patient: Cece Espinosa ?MR#: [id number] ?? [id number] ? : 1965 ?Acct:[id number] ? Age/Sex: 57 / F ?ADM Date: 11/28/22 ? Loc: HO.XRAY ? Attending Dr: Reynold Crowell MD ? Ordering Physician: Name,Reynold FAUST ?? Date of Service: 11/28/22 ?? Procedure(s): XR chest 2V ?? Accession Number(s): [id number] ? cc: Name,Reynold FAUST ? EXAMINATION: ?? XR CHEST ? CLINICAL [...] Barrios MD in OV> ?11/29/22 1239 ? DD/ 1619 ? TD/TT: ? Chemist Assistant: DELEON ? Procedure Note Donotuseinterpreter, Image - 11/29/2022 [facility] [address] [place] [address] XRay Report Signed Patient: Cece EspinosaMR#: [id number] : 1965Acct:[id number] Age/Sex: 57 / FADM Date: 11/28/22 Loc: [facility] Attending Dr: Reynold Crowell MD Ordering Physician: Reynold Crowell MD Date of Service: 11/28/22 Procedure(s): XR chest 2V Accession Number(s): [id number] cc: Reynold Crowell MD EXAMINATION: XR CHEST [...] in OV> 11/29/22 1239 DD/ 1619 TD/TT: Chemist Assistant: DELEON [facility] External Provider IMG XR PROCEDURES Final Result documented in this encounter Visit Diagnoses Not on filedocumented in this encounter Care Teams Lacquer Pin Press Operator Relationship Specialty Start Date End Date Reynold Crowell MD [address] [place] [address] PCP - General Family Medicine 12/26/15 documented as of this encounter
--- OUTSIDE RECORDS SUMMARY | 2024-11-10 14:08 | XMS_ITS | Clinical Summary ---
Author Organization [employer] Address [address] [facility] [address] [place] [address] Care Team Providers Care Micropaleontologist Name Role Phone Name, Reynold FAUST Primary Care Provider [phone] Allergies Active Allergy Reactions Criticality Noted Date [...] Active Problems Problem Noted Date Diagnosed Date residential (current) use of opiate analgesic 07/22 Overview (11/01/2024): Medication: Tramadol 50mg TID PRN Indication: OA right knee, seropositive RA Last ORCHESTRA DIRECTOR Agreement: 11/01/24 Tier: II (Q3 weeks) Assessment & Plan (11/01/2024 4:41 PM EST): Timeline: - 11/01/24: Group Visit - utox/pill tox wnl. Agreement renewed. GAGANDEEP positive 12/10/2023 Chronic cough 12/10/2023 Esophageal dysphagia 12/10/2023 Overview (12/11/2023): [address] [address] Operative Note Signed Patient: Cece Espinosa MR#: [id number] : 1965 Acct:[id number] Age/Sex: 58 / F Loc: HO.SSS Attending Dr: Kylee Mejias MD cc: Kylee [...] in fection 12/10/2023 GERD (gastroesophageal reflux disease) Hearing loss 12/10/2023 Polyarthralgia 12/10/2023 Locking knee 12/10/2023 Osteoarthritis of right knee 12/10/2023 Assessment & Plan (11/01/2024 4:28 PM EST): -Good engagement and participation with Group Medical Visit model -Encouraged multifactorial approach to pain control including pharm and non- pharm modalities -UTOX and Pill count as expected Assessment & Plan (08/02/2024 1:55 PM EST): [...] 12/10/2023 12/11/2023 H. 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 11/02/2019 12/11/2023 Ductal carcinoma in situ (DC IS) of left breast 11/02/2019 12/11/2023 Nausea and vomiting 07/13/2017 12/11/19 Hidradenitis 07/10/2016 12/11/2023 Backache 03/04/2012 12/11/2023 Acute gastritis 2012 05/31/2024 Encounters Date Type Department Care Team Description 11/09/2024 Travel 11/04/2024 Telephone [facility] [address] [place] [address] Elisabet Greer DDS partial adjustment made elsewhere 11/01/2024 9:45 AM EST Clinical Support [facility] [address] [place] [address] Kristen Williamson, STEVO Primary osteoarthritis of right knee (Primary Dx); 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; Rheumatoid arthritis involving multiple sites, unspecified whether rheumatoid factor present ([facility]) 11/01/2024 Telephone [facility] [address] [place] [address] Leeanna Paulino, RN ORCHESTRA DIRECTOR Agreement signed today 11/01/2024 Travel 10/31/2024 Orders Only GENERIC EXTERNAL DATA DEPARTMENT Provider, Generic External Data 10/19/2024 Refill [facility] [address] [place] [phone] Reynold Crowell MD Chronic pain syndrome 10/19/2024 Refill [facility] [address] [place] [address] Reynold Crowell MD 10/06/2024 Orders Only GENERIC EXTERNAL DATA DEPARTMENT Provider, [facility] External Data 10/06/[address] [address] Reynold Crowell MD Appointment Request 09/27/2024 Refill [facility] [address] [place], [place] [phone] Reynold Crowell MD Rash 09/23/2024 Refill [facility] [address] [facility] [place] [address] Name, MD Reynold Chronic pain syndrome 09/13/2024 Telephone [facility] [place] [address] Tommy Malave [place] feb recalls 09/06/2024 Orders Only GENERIC EXTERNAL DATA DEPARTMENT Provider, Generic External Data 09/03/2024 Refill [facility] [address] [facility] [place] [address] NameReynold MD Essential hypertension 08/25/2024 Refill [facility] [place] [address] Reynold Crowell MD Chronic pain syndrome 08/21/2024 Refill [facility] [place] [address] Reynold Crowell MD 08/16/2024 Telephone [facility] [place] [address] Reynold Crowell MD Nurse Triage from Last 3 Months Immunizations Name Administration [...] 1:30 PM EST Office Visit [facility] [address] [place] [address] Elisabet Greer, DDS [address] [place] [address] 11/16/2024 2:30 PM EST Office Visit [facility] [address] [place] [address] Name, MD Reynold [address] [place] [address] 12/09/2024 10:45 AM EDT Office Visit [facility] [address] [place] [address] Dayron Rowell MD [address] [place] [address] 12/27/2024 9:45 AM EDT Office Visit [facility] [address] [place] [address] Health Maintenance Due Date Last Done Comments [...] 07/29/2017 Dental Prophylaxis 04/10/2021 10/10/2020 COVID-19 Vaccine (1 - season) 2024 Influenza Vaccine (#1) 2024 Dental Oral Exam 06/03/2024 12/01/2023, , 07/06/2019 Dental X-Ray: Bitewings 12/01/2024 12/01/19 24, 10/10/2020, 07/06/2019 Depression Screening 12/10/2024 12/11/2023, 12/11/19 [...] 75+ series) 02/25/2040 Hepatitis C Screening Completed 10/31/2024, 023 HIB Vaccines Aged Out No longer eligi [...] Procedure Name Priority Date/Time Associated Diagnosis Comments POCT ANIKA-14 URINE DRUG SCREEN Routine 11/01/2024 2:07 PM EST Primary osteoarthritis of right knee T-SPOT(R).TB Routine 10/31/2024 2:04 PM EST HEPATITIS PANEL, GENERAL Routine 10/31/2024 2:04 PM EST COMPREHENSIVE METABOLIC PANEL Routine 10/06/2024 4:00 PM EST CBC WITH AUTO DIFFERENTIAL Routine 10/06/2024 4:00 PM EST HEMATOXYLIN AND EOSIN STAIN Routine 09/06/2024 1:35 PM EST LIPID PANEL, STANDARD Routine 05/14/2024 9:34 AM EDT Essential hypertension BI MAMMOGRAM DIAGNOSTIC TOMOSYNTHESIS RIGHT Routine 04/13/2024 2:10 PM EDT HEMOGLOBIN A1C Routine 12/12/2023 10:31 AM EDT Prediabetes INTRAORAL - COMPLETE SERIES OF RADIOGRAPHIC IMAGES Routine 12/01/2023 8:00 AM EDT Pain, dental Full coverage crown needed for tooth at risk for fracture Dental caries PERIODIC ORAL EVALUATION - ESTABLISHED PATIENT Routine 12/01/2023 8:00 AM EDT Pain, dental Full coverage crown needed for tooth at risk for fracture Dental caries HPV GENOTYPES 16,18/45 Routine 07/30/2022 9:52 AM EST THINPREP IMAGING PAP AND HPV MRNA E6/E7 WITH REFLEX TO HPV 16,18/45 Routine 07/30/2022 9:52 AM EST PROPHYLAXIS - ADULT Routine 10/10/2020 1 2:00 AM EST from Last 3 Months or Most Recently Relevant to Health Maintenance Results * POCT ANIKA-14 Urine Drug Screen (11/01/2024 2:07 PM EST) Urine Urine specimen obtained by clean catch procedure / Unknown 11/01/2024 2:07 PM EST Leeanna Claudio RN - 11/01/2024 2:07 PM EST UTOX cup Lot#[id number] Exp. 06/15/26 Internal Pass Control Negative for all substances Kristen [facility] POINT OF CARE TEST ENTER/EDIT ORDERABLES Final Result * T-SPOT??.TB (10/31/2024 2:04 PM EST) Pathologist [facility] T Spot TB Negative Negative [facility] Comment:A negative test resu lt does not exclude the possibilityof exposure to or infection with Mycobacteriumtuberculosis (M. tuberculosis). Patients with recentexposure to TB infected individuals exhibiting anegative T-SPOT.TB result should be considered forretesting within 6 weeks or if other relevant clinicalsymptoms indicate. Results from T-SPOT.TB testing mustbe used in conjunction with each individual'sepidemiological history, current medical status,and results of other diagnostic evaluations.The T-SPOT.TB test is qualitative and results arereported as positive, borderline, or negative, giventhat the test controls perform as expected. In linewith the Centers for Disease Control and Prevention's2010 recommendation to report quantitative measurementsalongside the qualitative result, the laboratoryprovides spot counts for informational purposes only.The T-SPOT.TB test should not be interpreted as aquantitative test. TS PANEL A 1 [facility] TS PANEL B 0 [facility] Negative Control Passed [facility] Positive Control Passed [facility] Comment:For additional infor mation, please refer tohttp://education.TapCanvas/faq/RTE349(This link is being provided for informational/educational purposes only.)THIS TEST WAS PERFORMED AT:[email or web address] [id number] [place] [address]PZXBYNNMADHURI MARTIN MD,PHD 10/31/2024 2:04 PM EST 10/31/2024 2:04 PM EST us Generic External Data Provider LAB BLOOD ORDERAB LES Final Result [facility] [address] [place] [phone] * Hepatitis Panel, General (10/31/2024 2:04 PM EST) Hepatitis A IgM Nonreactive Nonreactive [facility] Comment:IgM antibodies to CORONADO V not detected; does not exclude earlyacute or recovered HAV infection. ~Hepatitis B Surface Antibody REACTIVE Nonreactive [facility] Comment:REACTIVE: > 11.99 mI U/mL Hepatitis B Core Antibody Nonreactive Nonreactive [facility] Hepatitis C Antibody Nonreactive Nonreactive [facility] Comment:Antibodies to HCV no t detected; does not exclude early acuteHCV infection. Hepatitis B Surface Ag Negative Negative [facility] 10/31/2024 2:04 PM EST 10/31/2024 2:04 PM EST us Generic External Data Provider LAB BLOOD ORDERAB LES Final Result [facility] [address] [place], [place] [phone] * (ABNORMAL) CBC auto differential (10/06/2024 4:00 PM EST) White Blood Count 5.5 4.8 - 10.8 X10*3/uL [facility] Red Blood Count 4.42 4.20 - 5.50 X10*6/uL [facility] Hemoglobin 12.2 12.0 - 16.0 g/dl [facility] Hematocrit 37.6 37.0 - 47.0 % [facility] Mean Corpuscular Volume 85.1 80.0 - 98.0 fL [facility] Mean Corpuscular Hemoglobin 27.6 27.0 - 33.0 pg [facility] Mean Corpuscular HGB Conc 32.4 31.0 - 35.0 g/dl [facility] Red Cell Distribution Width 14.9 11.0 - 16.0 % [facility] Platelet Count 179 160 - 400 X10*3/uL [facility] Mean Platelet Volume 11.4 9.4 - 12.3 fL [facility] Neutrophils Percent Auto 71.5 45 - 73 % [facility] Imm Gran Pct Auto 0.4 0.0 - 0.4 % [facility] Lymphocytes Percent Auto 17.9(L) 20 - 40 % [facility] Monocytes Percent Auto 8.2 2 - 11 % [facility] Eosinophils Percent Auto 1.6 0 - 4 % [facility] Basophils Percent Auto 0.4 0 - 2 % [facility] NRBC Pct Auto 0.0 0.0 - 0.2 /100WBC [facility] Neutrophils Absolute Auto 4.0 2.0 - 8.3 x10*3/uL [facility] Imm Gran Abs Auto 0.02 0.00 - 0.03 X10*3/uL [facility] Lymphocytes Absolute Auto 1.0(L) 1.2 - 4.9 X10*3/uL [facility] Monocytes Absolute Auto 0.5 0.1 - 1.2 X10*3/uL [facility] Eosinophils Absolute Auto 0.1 0.0 - 0.4 X10*3/uL [facility] Basophils Absolute Auto 0.0 0.0 - 0.2 X10*3/uL [facility] NRBC Abs Auto 0.000 0.0 - 0.012 X10*3/uL [facility] 10/06/2024 4:00 PM EST 10/06/2024 4:00 PM EST us Generic External Data Provider LAB BLOOD ORDERAB LES Final Result [facility] [address] [place] [address] [phone] * (ABNORMAL) Comprehensive Metabolic Panel (10/06/2024 4:00 PM EST) Sodium 142 135 - 145 mmol/L [facility] Potassium 3.7 3.3 - 5.1 mmol/L [facility] Chloride 108 96 - 108 mmol/L [facility] Carbon Dioxide 27 22 - 29 mmol/L [facility] Anion Gap 11(L) 12 - 20 [facility] Urea Nitrogen (BUN) 21(H) 9 - 16 mg/dL [facility] Creatinine, Serum 0.95 0.5 - 1.4 mg/dL [facility] Estimated Glomerular Filt Rate >60 [facility] Comment:Chronic Kidney Disea se: Estimated GFR < 60 mL/min/1.04i3Jumvdz Kidney Disease: Estimated GFR < 15 mL/min/1.73m2 Glucose 96 60 - 115 mg/dL [facility] Calcium 9.4 8.4 - 10.2 mg/dL [facility] Bilirubin, Total 0.3 0.0 - 1.0 mg/dL [facility] Aspartate Amino Transferase 41(H) 5 - 31 U/L [facility] Alanine Aminotransferase 37(H) 0 - 31 U/L [facility] Total Protein 8.5(H) 6.5 - 8.0 g/dL [facility] Albumin Level 4.2 3.5 - 5.0 g/dL [facility] Alkaline Phosphatase 78 39 - 117 U/L [facility] 10/06/2024 4:00 PM EST 10/06/2024 4:00 PM EST us Generic External Data Provider LAB BLOOD ORDERAB LES Final Result Performing Organization Address City/State/[facility] Co de Phone Number [facility] [address] [place] [address] [phone] * Hematoxylin and Eosin Stain (09/06/2024 1:35 PM EST) 09/06/2024 1:35 PM EST 09/06/2024 2:10 PM EST Narrative [facility] - 09/08/2024 3:57 PM EST ----- ------- Name: Cece Espinosa ? Age/Sex: 59/F ? : 1965 Unit#: [id number] ?? Attend Dr: Kylee Mejias MD ?Re09/06/24 ?Status: DEP SDC ? Location: HO.SSS ?Disch: ? ----- ------- SPEC : [id number] ? RECD: 09/06/24 ? STATUS: ??SOUT ? REQ NUM: [id number] ? LEVI: 09/06/246 ? SUBM DR: Kylee Mejias MD ? ENTERED: ??09/06/24 ?SP TYPE: Surgical ? OTHR DR: NameReynold MD ? ORDERED: ??HE Stain/9, Gross Micro [...] ? Age/Sex: 59/F ? : 1965 Unit#: [id number] ?? Attend Dr: Kylee Mejias MD ?Re09/06/24 ?Status: DEP SDC ? Location: HO.SSS ?Disch: ? ----- ------- SPEC : [id number] ? RECD: 09/06/240 ? STATUS: ??SOUT ? REQ NUM: [id number] ? LEVI: 09/06/246 ? SUBM DR: Kylee Mejias MD ? [...] Copies To: ?? Kylee Mejias MD ?? [facility] ?? [address] ?? [place] [address] ?? [phone] ?? Mervat,Reynold FAUST ?? [address] [facility] ?? [place] [address] ?? [phone] ----- ------- Signed (signature on file) Warren Klein MD 09/08/24 5760 ? ----- ------- ? END OF REPORT ? us Generic External Data Provider LAB BLOOD ORDERAB LES Final Result [facility] [address] [place] [address] [phone] * (ABNORMAL) Lipid Panel, Standard (05/14/2024 9:34 AM EDT) Triglycerides 132 <150 mg/dL [facility] Comment:Desirable Triglyceri de: less than 150 mg/dLBorderline High Triglyceride 150-199 mg/dLHigh Triglyceride: 200-499 mg/dLVery High Triglyceride: greater than or equal to 5OO mg/dL Cholesterol 218(H) <200 mg/dL [facility] Comment:Desirable Cholestero l: less than 200 mg/dLBorderline High Cholesterol: 200-239 mg/dLHigh Cholesterol: greater than 239 mg/dL LDL Cholesterol Calculated 130(H) <100 mg/dL [facility] Comment:Desirable LDL: less than 100 mg/dLNear Optimal/Above Optimal LDL: 110- 129 mg/dLBorderline High LDL: 130-159 mg/dLHigh LDL: 160-189 mg/dLVery High LDL: greater than or equal to 190 mg/dL HDL Cholesterol 62 >40 mg/dL [facility] Comment:Desirable HDL: great er than 40 mg/dL Note: This HDL assay may give artificially low results in patients with liver disease. Blood Venous blood specimen / Unknown 05/14/2024 9:34 AM EDT 05/14/2024 9:34 AM EDT us Reynold Name LAB BLOOD ORDERABLES Final Resul t [facility] [address] [place] [address] [phone] * BI Mammogram Diagnostic Tomosynthesis Right (04/13/2024 2:10 PM EDT) Anatomical Region Laterality Modality Breast Right Mammography 04/13/2024 2:10 PM EDT Narrative 04/13/2024 3:18 PM EDT ? [facility] [place] ? [address] ?[place] [address] ? Mammography Report ? Signed ? Patient: Isaías Maurer,Cece ?MR#: [id number] ?? [id number] ? : 1965 ?Acct:[id number] ? Age/Sex: 59 / F ?ADM Date: 07/24/24 ? Loc: HO.MAMMO ? Attending Dr: Phillip Acuna MD ? Ordering Physician: Phillip Acuna MD ?Results: 2Beni ?? gn Findings ? Date of Service: 04/13/24 ?Follow Up: 1 Year From Orig ?? inal Mammogram ? Procedure(s): MM tomosynthesis diagnostic RT ?? Accession Number(s): [id number] ? cc: Phillip Acuna MD; Name,Reynold FAUST [...] 1513 ? DD/ 1410 ? TD/TT: ? Professional Fee Coder: ? Procedure Note Douglas Isbell - 04/13/2024 [facility] [address] [place] [address] [place] [address] Mammography Report Signed Patient: Cece Espinosa#: [id number] : 1965Acct:[id number] Age/Sex: 59 / FADM Date: 04/13/24 Loc: HO.MAMMO Attending Dr: Phillip Acuna MD Ordering Physician: Phillip Acuna MDResults: 2Beni gn Findings Date of Service: 04/13/24Follow Up: 1 Year From Orig ina Mammogram Procedure(s): MM tomosynthesis diagnostic RT Accession Number(s): [id number] cc: Phillip Acuna MD; Name,Reynold FAUST EXAMINATION: [...] in OV> 04/13/24 1513 DD/ 1410 TD/TT: Professional Fee Coder: [facility] External Provider IMG BI PROCEDURES Final Result * (ABNORMAL) Hemoglobin A1c (12/12/2023 10:31 AM EDT) Hemoglobin A1c 6.1(H) <6.0 % [facility] Comment:Hemoglobin A1C Refer ence Range Adults: 4.8 - 6.0 % Non diabetic: < 6.0 % Goal: < 7.0 %Additional Action Suggested: > 8.0 %Note: Hemoglobin A1c results are invalid for patients with abnormal amounts of HbF. Blood transfusions may impact the HbA1c concentration in the patient sample. Estimated Average Glucose 128 mg/dL [facility] Comment:eAG = Estimated ave rage glucose which is %A1C expressed asaverage glucose, using the formula of the S0O-UyorfryGrnkcsb Glucose study (ADAG), Diabetes Care, Vol.31,#8,Apr. 2007 Blood Venous blood specimen / Unknown 12/12/2023 10:31 AM EDT 12/12/2023 10:32 AM EDT Reynold Crowell MD LAB BLOOD ORDERABLES Final Resul t [facility] [address] [place] [address] [phone] * (ABNORMAL) THINPREP TIS PAP AND [...] been evaluated with computer assisted technology. [facility]S Electricity Trader : SEE COMMENT [facility] LABS Comment: DCR, CT(ASCP) CT screening location: [address] ??[address] HPV nRNA E6/E7 Detected(A) Not Detected [facility] Comment: Methodology: Rework Machine Operator-Mediated Amplification This assay detects E6/E7 viral messenger RNA (mRNA) from 14 high-risk HPV types (16,18,31,33,35,39,45,51,52,56,58,59,66,68). ? Cervical sources are required for HPV testing. If a vaginal source from a patient who has had a total hysterectomy with removal of cervix was ?? submitted, please contact the testing laboratory for alternative testing options. ?? For additional information, please refer to http://education.TapCanvas/faq/RQZ062v0 (This link if provided for information/ educational purposes only.) Interpretation/R esult: Negative for intraepithelial lesion or malignancy. CONVERTED LEGACY LABS LMP: MENOPAUSAL CONVERTED LEGACY LABS PATHOLOGIST: SEE COMMENT CONVE RTED LEGACY LABS Comment: Chris Bai M.D., Direct , Board Certified in Anatomic Pathology and Cytopathology (electronic signature) Consulting Pathologist [facility] [address] [place] [phone] Prev. BX: NONE GIVEN CONVERTED LEGACY LABS Prev. PAP: NIL HPV - 2020 CONV ERTED LEGACY LABS SOURCE: Cervix [facility]GAC[facility] LABS Statement Of Adequacy: SEE COMMENT [facility]GAC[facility] LABS Comment: Satisfactory for evaluation. Endocervical/transformation zone component present. 07/30/2022 9:52 AM EST [facility] PATHOLOGY ORDERABLES Final Result [facility]GACY LABS * HPV GENOTYPES 16,18/45 (07/30/2022 9:52 AM EST) HPV 16 RNA NOT DETECTED NOT DETECTED [facility] HPV 18/45 RNA NOT DETECTED NOT DETECTED [facility] Comment: Methodology: Rework Machine Operator Mediated Amplification Cervical sources are required for HPV testing. If a vaginal source from a patient who has had a total hysterectomy with removal of cervix was submitted, please contact the testing laboratory for alternative testing options. 07/30/2022 9:[address] [facility] LAB BLOOD ORDERABLES Megan l Result Performing Organization Address City/[facility]/ZIP Co de Phone Number CONVERTED LEGACY LABS from Last 3 Months or Most Recently Relevant to Health Maintenance Insurance [facility] C[facility] DENT[facility] - [facility] Care Teams Micropaleontologist Relationship Specialty Start Date End Date Name, MD Reynold [address] [place] [address] PCP - General Family Medicine 12/26/15
--- OUTSIDE RECORDS SUMMARY | 2024-11-10 14:08 | XMS_ITS | Encounter Summary ---
Author Organization [employer] Address [address] [facility] 7[address] [place] [address] Care Team Providers Care Mutual Fund Analyst Name Role Phone Name, Reynold FAUST Primary Care Provider [phone] Reason for Visit * Reason Onset Date Comments Nurse Triage 08/16/2024 Encounter Details Date Type Department Care Team ([facility] st Contact Info) Description 08/16/2024 Telephone [facility] [address] [place] [address] Name, MD Reynold [address] [place] [address] Nurse Triage Social History Tobacco Use Types [...] transportation but, will call to come to [facility] for Thursday evening. Pt agrees with [...] Description 11/11/2024 1:30 PM EST Office Visit [facility] ADULT DENT[facility] [address] [place] [address] Elisabet Greer, DDS [address] [place] [address] 11/16/2024 2:30 PM EST Office Visit [address] [address] NameReynold MD [address] [place] [address] 12/09/2024 10:45 AM EDT Office Visit [address] [address] Dayron Rowell MD [address] [place] [address] 12/27/2024 9:45 AM EDT Office Visit [address] [address] documented as of this encounter Visit Diagnoses Not on filedocumented in this encounter Additional Health Concerns Assessment Noted Time PHQ-9 Depression Total Score: 7 12/11/19 24 11:10 AM EDT documented as of this encounter Care Teams Mutual Fund Analyst Relationship Specialty Start Date End Date Name, MD Reynold [address] [place] [address] PCP - General Family Medicine 12/26/15 documented as of this encounter
--- OUTSIDE RECORDS SUMMARY | 2024-11-10 14:08 | XMS_ITS | Encounter Summary ---
Author Organization [employer] Address [address] [place] [address] 7 [place] [address] Care Team Providers Care Credit Operations Processor Name Role Phone Name, Reynold FAUST Primary Care Provider [phone] Encounter Details Date Type Department Care Team (Latest Contact Info) Description 10/10/2020 Abstract [facility] CONVERSIONS Dental, Provider, DDS Social History Tobacco [...] Description 11/11/2024 1:30 PM EST Office Visit [facility] ADULT DENTAL [address] [place] [address] Elisabet Greer DDS [address] [place] [address] 11/16/2024 2:30 PM EST Office Visit [facility] MEDICINE [address] [place] [phone] Reynold Crowell MD [address] [place] [address] 12/09/2024 10:45 AM EDT Office Visit [facility] MEDICINE [address] [place] [address] Dayron Rowell MD [address] [place] [address] 12/27/2024 9:45 AM EDT Office Visit [facility] MEDICINE [address] [place] [address] documented as of this encounter Visit Diagnoses Not on filedocumented in this encounter Care Teams Credit Operations Processor Relationship Specialty Start Date End Date Name, MD Reynold [address] [place] [address] PCP - General Family Medicine 12/26/15 documented as of this encounter
--- OUTSIDE RECORDS SUMMARY | 2024-11-10 14:08 | XMS_ITS | Encounter Summary ---
Author Organization [employer] Address [address] [place] [address] 7t [place] [address] Care Team Providers Care Guest Room Attendant Name Role Phone Name, Reynold FAUST Primary Care Provider [phone] Reason for Visit * Reason Comments Med Refill Encounter Details Date Type Department Care Team ([facility] Contact Info) Description 12/22/2022 Refill [facility] MED & PEDS [address] [place] [address] Name, MD Reynold [address] [place] [address] Rash Social History Tobacco Use Types Packs/Day [...] Upcoming Encounters Date Type Department Care Team ([facility] Contact Info) Description 11/11/2024 1:30 PM EST Office Visit [facility] ADULT DENTAL [address] [place] [address] Elisabet Greer DDS [address] [place] [address] 11/16/2024 2:30 PM EST Office Visit [address] [address] Name, MD Reynold [address] [place] [address] 12/09/2024 10:45 AM EDT Office Visit [address] [address] Dayron Rowell MD [address] [place] [address] 12/27/2024 9:45 AM EDT Office Visit [address] [address] documented as of this encounter Visit Diagnoses Diagnosis Rash Rash and other nonspecific skin eruption documented in this encounter Care Teams Guest Room Attendant Relationship Specialty Start Date End Date Name, MD Reynold [address] [place] [address] PCP - General Family Medicine 12/26/15 documented as of this encounter
--- OUTSIDE RECORDS SUMMARY | 2024-11-10 14:08 | XMS_ITS | Encounter Summary ---
Author Organization [employer] Address [address] [facility] 7t [place] [address] Care Team Providers Care Blower Operator Name Role Phone Name, Reynold FAUST Primary Care Provider [phone] Encounter Details Date Type Department Care Team (Latest Contact Info) Description 11/01/2024 9:45 AM EST Clinical Support [facility]INE [address] [place] [address] Kristen Williamson, STEVO [address] [place] [address] Primary osteoarthritis of right knee (Primary Dx); USP (current) use of opiate analgesic; Rheumatoid arthritis involving multiple sites, unspecified whether rheumatoid factor present (CMS/HCC) Social History Tobacco Use Types Packs/Day Years [...] AM EDT documented as of this encounter Progress Notes * Kristen Williamson, ACCOUNT MANAGER B2B - 11/01/2024 9:45 AM EST Subjective: Cece Maurer is a 59 y.o. female w/ PMH RA, OA of hip and knee, HTN, radiation fibrosis of the lung, GERD, pre-DM, h/o breast cancer who presents to the office for - Chronic Pain Clinic Groupvisits. Initial Group visit: 05/31/24 Group Visit Number: 3 Last PCP visit: 06/27/24, Dr. Crowell Group Confidentiality Signed: 05/31/24 Group Topic: [facility] Chronic Pain History: Associated Diagnosis: Rt knee osteoarthritis, seropositive RA Relevant Imaging: None available Current pharm tx: Tramadol 50mg q8 hours, also taking Ativan 0.5mg daily prn Medication: States taking medication as prescribed. Specialists: [facility] Rheumatology Imaging: previous XR, no recent on file Review of Systems Constitutional: Negative. Respiratory: Negative. Cardiovascular: Negative. Gastrointestinal: Negative. Musculoskeletal: Positive for arthralgias and back pain. Physical Exam Constitutional: Appearance: Normal appearance. HENT: Head: Normocephalic and atraumatic. Skin: General: Skin is warm and dry. Neurological: General: No focal deficit present. Mental Status: She is alert and oriented to person, place, and time. Psychiatric: Mood and Affect: Mood normal. Behavior: Behavior normal. Problem List Items Addressed This Visit Musculoskeletal Osteoarthritis of right knee - Primary Current Assessment & Plan -Good engagement and participation with Group Medical Visit model -Encouraged multifactorial approach to pain control including pharm and non- pharm modalities -UTOX and Pill count as expected Relevant Orders POCT ANIKA-14 Urine Drug Screen (Completed) Other Rheumatoid arthritis (CMS/HCC) USP (current) use of opiate analgesic Overview Medication: Tramadol 50mg TID PRN Indication: OA right knee, seropositive RA Last GRADES 7 8 TUTOR Agreement: 11/01/24 Tier: II (Q3 weeks) Current Assessment & Plan Timeline: - 11/01/24: Group Visit - utox/pill tox wnl. Agreement renewed. Follow up: 1-2 for Group Chronic Pain Clinic. Follow up as scheduled with PCP, sooner as needed. * Leeanna Paulino RN - 11/01/2024 9:45 AM EST GRADES 7 8 TUTOR drawing operator: PDMP reviewed today. Last fill date: 10/20/24 Tramadol 50mg count was 54, anticipated 47 to be remaining. UTOX completed. Negative for all substances: AMP, BAR, BUP, BZO, ALDAIR, FTY, MDMA, MET, MOP, MTD, OXY, PCP, TCA, THC. UTOX as expected. GRADES 7 8 TUTOR Agreement reviewed and signed. BPI updated today. Pain severity score of 8.8, activity interference score of 4. Previous BPI completed 05/31/24 with pain severity score of 8.8, activity interference score of 5.1. Will update PCP with BPI scoring. documented in this encounter Miscellaneous Notes * Assessment & Plan Note - STEVO Wheeler - 11/01/2024 4:41 PM ESTAssociated Problem(s): USP (current) use of opiate analgesic Timeline: - 11/01/24: Group Visit - utox/pill tox wnl. Agreement renewed. * Assessment & Plan Note - STEVO Wheeler - 11/01/2024 4:27 PM ESTAssociated Problem(s): Osteoarthritis of right knee -Good engagement and participation with Group Medical Visit model -Encouraged multifactorial approach to pain control including pharm and non- pharm modalities -UTOX and Pill count as expected documented in this encounter Plan of Treatment Upcoming Encounters Date Type Department Care Team (Late st Contact Info) Description 11/11/2024 1:30 PM EST Office Visit [facility] ADULT DENTAL [address] [place] [address] Elisabet Greer DDS [address] [place] [address] 11/16/2024 2:30 PM EST Office Visit [facility] MEDICINE [address] [place] [address] Name, MD Reynold [address] [place] [address] 12/09/2024 10:45 AM EDT Office Visit [address] [address] Dayron Rowell MD [address] [place] [address] 12/27/2024 9:45 AM EDT Office Visit [address] [address] documented as of this encounter Procedures Procedure Name Priority Date/Time Associated Diagnosis Comments POCT ANIKA-14 URINE DRUG SCREEN Routine 11/01/2024 2:07 PM EST Primary osteoarthritis of right knee documented in this encounter Results * POCT ANIKA-14 Urine Drug Screen (11/01/2024 2:07 PM EST) Urine Urine specimen obtained by clean catch procedure / Unknown 11/01/2024 2:07 PM EST Pan Leeanna Paulino, RN - 11/01/2024 2:07 PM EST UTOX cup Lot#[id number] Exp. 06/15/26 Internal Pass Control Negative for all substances Kristen Williamson ACCOUNT MANAGER B2B POINT OF CARE TEST ENTER/EDIT ORDERABLES Final Result documented in this encounter Visit Diagnoses Diagnosis Primary osteoarthritis of right knee- Primary terminal press operator (current) use of opiate analgesic Rheumatoid arthritis involving multiple sites, unspecified whether rheumatoid factor present ([facility]) documented in this encounter Additional Health Concerns Assessment Noted Time PHQ-9 Depression Total Score: 7 12/11/19 24 11:10 AM EDT documented as of this encounter Care Teams Blower Operator Relationship Specialty Start Date End Date Name, MD Reynold [address] [place] [address] PCP - General Family Medicine 12/26/15 documented as of this encounter
--- OUTSIDE RECORDS SUMMARY | 2024-11-10 14:08 | XMS_ITS | Encounter Summary ---
Author Organization [employer] Address [address] [facility] 7t [place] [address] Care Team Providers Care Crab Butcher Name Role Phone Name, Reynold FAUST Primary Care Provider [phone] Reason for Visit * Reason Onset Date Comments New Med Request 2024 Encounter Details Date Type Department Care Team ([facility] st Contact Info) Description 2024 Telephone [facility] MEDICINE [address] [place] [address] Name, MD Reynold 230 [place] [address] New Med Request Social History Tobacco Use [...] T/C to pt. For below message through [place] interpreters id - [id number], pt. Verbally greed and understood. * Telephone [...] 1:30 PM EST Office Visit [facility] ADULT DENTAL [address] [place] [address] Elisabet Greer DDS [address] [place] [address] 11/16/2024 2:30 PM EST Office Visit [facility] MEDICINE [address] [place] [address] Reynold Crowell MD [address] [place] [address] 12/09/2024 10:45 AM EDT Office Visit [address] [address] Dayron Rowell MD 230 [place] [address] 12/27/2024 9:45 AM EDT Office Visit [address] [address] documented as of this encounter Visit Diagnoses Not on filedocumented in this encounter Additional Health Concerns Assessment Noted Time PHQ-9 Depression Total Score: 7 12/11/19 24 11:10 AM EDT documented as of this encounter Care Teams Crab Butcher Relationship Specialty Start Date End Date Reynold Crowell MD [address] [place] [address] PCP - General Family Medicine 12/26/15 documented as of this encounter
--- OUTSIDE RECORDS SUMMARY | 2024-11-10 14:08 | XMS_ITS | Encounter Summary ---
Author Organization [employer] Address [address] [place] [address] 7 [place] [address] Care Team Providers Care Physician Interventional Cardiologist Name Role Phone Name, Reynold FAUST Primary Care Provider [phone] Encounter Details Date Type Department Care Team (Late st Contact Info) Description 10/07/2023 Abstract [facility] MEDICINE [address] [place] [address] Name, MD Reynold 230 [place] [address] Social History Tobacco Use Types Packs/Day Years [...] Description 11/11/2024 1:30 PM EST Office Visit [facility] ADULT DENTAL [address] [place] [address] Elisabet Greer DDS 230 [place] [address] 11/16/2024 2:30 PM EST Office Visit [facility] [address] [place] [address] Name, [place] [address] 12/09/2024 10:45 AM EDT Office Visit [address] [address] Dayron Rowell MD [address] [place] [address] 12/27/2024 9:45 AM EDT Office Visit [address] [address] documented as of this encounter Visit Diagnoses Not on filedocumented in this encounter Care Teams Physician Interventional Cardiologist Relationship Specialty Start Date End Date Name, MD Reynold [address] [place] [address] PCP - General Family Medicine 12/26/15 documented as of this encounter
--- OUTSIDE RECORDS SUMMARY | 2024-11-10 14:08 | XMS_ITS | Encounter Summary ---
Author Organization [employer] Address [address] [facility] 7t [place] [address] Care Team Providers Care News Analyst Name Role Phone Name, Reynold FAUST Primary Care Provider [phone] Reason for Visit * Reason Comments Med Refill Encounter Details Date Type Department Care Team ([facility] st Contact Info) Description 06/11/2024 Refill [facility] MEDICINE 230 [place] [address] Name, MD Reynold 230 [place] [address] Essential hypertension Social History Tobacco Use Types [...] 1:30 PM EST Office Visit [facility] ADULT DENTAL [address] [place] [address] Elisabet Greer DDS [address] [place] [address] 11/16/2024 2:30 PM EST Office Visit [facility] MEDICINE [address] [place] [address] Reynold Crowell MD [address] [place] [address] 12/09/2024 10:45 AM EDT Office Visit [address] [address] Dayron Rowell MD [address] [place] [address] 12/27/2024 9:45 AM EDT Office Visit [address] [address] documented as of this encounter Visit Diagnoses Diagnosis Essential hypertension Unspecified essential hypertension documented in this encounter Additional Health Concerns Assessment Noted Time PHQ-9 Depression Total Score: 7 12/11/19 24 11:10 AM EDT documented as of this encounter Care Teams News Analyst Relationship Specialty Start Date End Date Reynold Crowell MD 230 [place] [address] PCP - General Family Medicine 12/26/15 documented as of this encounter
--- OUTSIDE RECORDS SUMMARY | 2024-11-10 14:08 | XMS_ITS | Encounter Summary ---
Author Organization [employer] Address 75 [facility] 7t [place] [address] Care Team Providers Care Manager Electronic Name Role Phone Name, Reynold FAUST Primary Care Provider [phone] Reason for Visit * Reason Comments Med Refill Encounter Details Date Type Department Care Team ([facility] st Contact Info) Description 10/19/2024 Refill [facility] MEDICINE 230 [place] [address] Name, MD Reynold 230 [place] [address] Social History Tobacco Use Types Packs/Day Years [...] Description 11/11/2024 1:30 PM EST Office Visit [facility] ADULT DENTAL [address] [place] [address] Elisabet Greer DDS [address] [place] [address] 11/16/2024 2:30 PM EST Office Visit [facility] MEDICINE [address] [place] [address] Reynold Crowell MD [address] [place] [address] 12/09/2024 10:45 AM EDT Office Visit [address] [address] Dayron Rowell MD [address] [place] [address] 12/27/2024 9:45 AM EDT Office Visit [address] [address] documented as of this encounter Visit Diagnoses Not on filedocumented in this encounter Additional Health Concerns Assessment Noted Time PHQ-9 Depression Total Score: 7 12/11/19 24 11:10 AM EDT documented as of this encounter Care Teams Manager Electronic Relationship Specialty Start Date End Date Reynold Crowell MD 230 [place] [address] PCP - General Family Medicine 12/26/15 documented as of this encounter
--- OUTSIDE RECORDS SUMMARY | 2024-11-10 14:08 | XMS_ITS | Encounter Summary ---
Author Organization [email or web address] Address [address] [facility] [address] 7t [place] [address] Care Team Providers Care Hardwood Floor Sander Name Role Phone Name, Reynold FAUST Primary Care Provider [phone] Encounter Details Date Type Department Care Team (Latest Contact Info) Description 11/09/2024 Travel Social History Tobacco Use Types Packs/Day Years [...] 1:30 PM EST Office Visit [facility] ADULT DENTAL [address] [place] [address] Elisabet Greer, DDS [address] [place] [address] 11/16/2024 2:30 PM EST Office Visit [address] [address] Name, MD Reynold [address] [place] [address] 12/09/2024 10:45 AM EDT Office Visit [address] [address] Dayron Rowell MD [address] [place] [address] 12/27/2024 9:45 AM EDT Office Visit [address] [address] documented as of this encounter Visit Diagnoses Not on filedocumented in this encounter Additional Health Concerns Assessment Noted Time PHQ-9 Depression Total Score: 7 12/11/19 24 11:10 AM EDT documented as of this encounter Care Teams Hardwood Floor Sander Relationship Specialty Start Date End Date NameReynold MD [address] [place] [address] PCP - General Family Medicine 12/26/15 documented as of this encounter
--- OUTSIDE RECORDS SUMMARY | 2024-11-10 14:08 | XMS_ITS | Encounter Summary ---
Author Organization [employer] Address [address] [facility] 7t [place] [address] Care Team Providers Care Cupola Liner Name Role Phone Name, Reynold FAUST Primary Care Provider [phone] Reason for Visit * Reason Onset Date Comments [employer] AMBASSAD[employer] Agreement signed today 11/01/2024 Encounter Details Date Type Department Care Team ([facility] st Contact Info) Description 11/01/2024 Telephone [facility] MEDICINE 230 [place] [address] Leeanna Paulino, RN [employer] AMBASSADOR Agreement signed today Social History Tobacco Use Types Packs/Day Years [...] Telephone Encounter - Leeanna Paulino RN - 11/01/2024 2:10 PM EST Pt attended chronic pain group today. GOODWILL AMBASSADOR Agreement was reviewed and signed. BPI updated today. Pain severity score of 8.8, activity interference score of 4. Previous BPI completed 05/31/24 with pain severity score of 8.8, activity interference score of 5.1. Will update PCP with BPI scoring. documented in this encounter Plan of Treatment Upcoming Encounters Date Type Department Care Team (Late st Contact Info) Description 11/11/2024 1:30 PM EST Office Visit [facility] ADULT DENTAL [address] [place] [address] Elisabet Greer, DDS [address] [place] [address] 11/16/2024 2:30 PM EST Office Visit [facility] MEDICINE [address] [place] [address] Name, MD Reynold [address] [place] [address] 12/09/2024 10:45 AM EDT Office Visit [facility] MED[facility] [address] [place] [address] Dayron Rowell MD [address] [place] [address] 12/27/2024 9:45 AM EDT Office Visit [facility] MED[facility] [address] [place] [address] documented as of this encounter Visit Diagnoses Not on filedocumented in this encounter Additional Health Concerns Assessment Noted Time PHQ-9 Depression Total Score: 7 12/11/19 24 11:10 AM EDT documented as of this encounter Care Teams Cupola Liner Relationship Specialty Start Date End Date Name, MD Reynold [address] [place] [address] PCP - General Family Medicine 12/26/15 documented as of this encounter
--- OUTSIDE RECORDS SUMMARY | 2024-11-10 14:08 | XMS_ITS | Encounter Summary ---
Author Organization [email or web address] Address 75 [facility] 7t [place] [address] Care Team Providers Care Apple Thinner Name Role Phone Name, Reynold FAUST Primary Care Provider [phone] Reason for Visit * Reason Onset Date Comments partial adjustment made elsewhere 11/04/2024 Encounter Details Date Type Department Care Team ([facility] st Contact Info) Description 11/04/2024 Telephone [facility] ADULT DENTAL [address] [place] [address] SolorzanoElisabet Reyes, DDS [address] [place] [address] partial adjustment made elsewhere Social History Tobacco Use Types Packs/Day Years [...] encounter Miscellaneous Notes * Telephone Encounter - Rea Maurer - 11/04/2024 9:01 AM EST adjustment or submit authorization to have new one made. [facility] informed patient she should call us. Patient had partials made elsewhere. Has had extensvie trouble with them. Does not want to return to the dental office that made them. It was explained to patient here is no guarantee that the case will be able to worked in our office as they were not fashioned by our clinic. DR Luis [facility] insurance and we accept [facility] [place] insurance in our facilities documented in this encounter Plan of Treatment Upcoming Encounters Date Type Department Care Team (Late st Contact Info) Description 11/11/2024 1:30 PM EST Office Visit [facility] ADULT DENTAL [address] [place] [address] Elisabet Greer DDS [address] [place] [address] 11/16/2024 2:30 PM EST Office Visit [facility] MEDICINE [address] [place] [address] Name, MD Reynold [address] [place] [address] 12/09/2024 10:45 AM EDT Office Visit [facility] MED[facility]INE [address] [place] [address] Dayron Rowell MD [address] [place] [place] [address] 12/27/2024 9:45 AM EDT Office Visit [address] [address] documented as of this encounter Visit Diagnoses Not on filedocumented in this encounter Additional Health Concerns Assessment Noted Time PHQ-9 Depression Total Score: 7 12/11/19 24 11:10 AM EDT documented as of this encounter Care Teams Apple Thinner Relationship Specialty Start Date End Date Name, MD Reynold [address] [place] [address] PCP - General Family Medicine 12/26/15 documented as of this encounter
--- OUTSIDE RECORDS SUMMARY | 2024-11-10 14:08 | XMS_ITS | Encounter Summary ---
Author Organization [employer] Address [address] [facility] 7t [place] [address] Care Team Providers Care Pie Topper Name Role Phone Name, Reynold FAUST Primary Care Provider [phone] Encounter Details Date Type Department Care Team (Late st Contact Info) Description 10/31/2024 Orders Only GENERIC EXTERNAL DATA DEPARTMENT [...] Description 11/11/2024 1:30 PM EST Office Visit [facility] ADULT DENTAL [address] [place] [address] Elisabet Greer DDS [address] [place] [address] 11/16/2024 2:30 PM EST Office Visit [facility] MEDICINE [address] [place] [address] Name, MD Reynold [address] [place] [address] 12/09/2024 10:45 AM EDT Office Visit [address] [address] Dayron Rowell MD [address] [place] [address] 12/27/2024 9:45 AM EDT Office Visit [address] [address] documented as of this encounter Procedures Procedure Name Priority Date/Time Associated Diagnosis Comments T-SPOT(R).TB Routine 10/31/2024 2:04 PM EST HEPATITIS PANEL, GENERAL Routine 10/31/2024 2:04 PM EST documented in this encounter Results * T-SPOT??.TB (10/31/2024 2:04 PM EST) T Spot TB Negative Negative LABS Comment:A negative test resu lt does [...] as aquantitative test. TS PANEL A 1 LABS TS PANEL B 0 LABS Negative Control Passed [facility] Positive Control Passed [facility] Comment:For additional infor michelle, please refer tohttp://education.[employer]/faq/CIP617(This link is being provided for informational/educational purposes only.)THIS TEST WAS PERFORMED AT:[employer] [id number] [place], [place] [address]MADHURI MARTIN MD,PHD 10/31/2024 2:04 PM EST 10/31/2024 2:04 PM EST us Generic External Data Provider LAB BLOOD ORDERAB LES Final Result LABS [address] [place] [phone] * Hepatitis Panel, General (10/31/2024 2:04 PM EST) Hepatitis A IgM Nonreactive Nonreactive LABS Comment:IgM antibodies to CORONADO V not detected; does not exclude earlyacute or recovered HAV infection. ~Hepatitis B Surface Antibody REACTIVE Nonreactive LABS Comment:REACTIVE: > 11.99 mI U/mL Hepatitis B Core Antibody Nonreactive Nonreactive LABS Hepatitis C Antibody Nonreactive Nonreactive LABS Comment:Antibodies to HCV no t detected; does not exclude early acuteHCV infection. Hepatitis B Surface Ag Negative Negative LABS 10/31/2024 2:04 PM EST 10/31/2024 2:04 PM EST us Generic External Data Provider LAB BLOOD ORDERAB LES Final Result LAB[facility] [address] [place] [address] [phone] documented in this encounter Visit Diagnoses Not on filedocumented in this encounter Additional Health Concerns Assessment Noted Time PHQ-9 Depression Total Score: 7 12/11/19 24 11:10 AM EDT documented as of this encounter Care Teams Pie Topper Relationship Specialty Start Date End Date Name, MD Reynold [address] [place] [address] PCP - General Family Medicine 12/26/15 documented as of this encounter
--- OUTSIDE RECORDS SUMMARY | 2024-11-10 14:08 | XMS_ITS | Encounter Summary ---
Author Organization [employer] Address [address] [facility] [address] [address] 7t [place] [address] Care Team Providers Care Dog Barber Name Role Phone Name, Reynold FAUST Primary Care Provider [phone] Encounter Details Date Type Department Care Team (Latest Contact Info) Description 11/01/2024 Travel Social History Tobacco Use Types Packs/Day [...] Description 11/11/2024 1:30 PM EST Office Visit [facility] [address] [place] [address] Elisabet Greer, DDS [address] [place] [address] 11/16/2024 2:30 PM EST Office Visit [address] [address] Name, MD Reynold [address] [place] [address] 12/09/2024 10:45 AM EDT Office Visit [address] [address] Dayron Rowell MD [address] [place] [address] 12/27/2024 9:45 AM EDT Office Visit [address] [address] documented as of this encounter Visit Diagnoses Not on filedocumented in this encounter Additional Health Concerns Assessment Noted Time PHQ-9 Depression Total Score: 7 12/11/19 24 11:10 AM EDT documented as of this encounter Care Teams Dog Barber Relationship Specialty Start Date End Date NameReynold MD [address] [place] [address] PCP - General Family Medicine 12/26/15 documented as of this encounter
== END 2024-11-10 13:15 | disposition home or self-care (01) ==
LOC: HO.MAMMO 13:14
PROVIDERS: PCP Internal Medicine Geriatric Medicine; Visit Provider Internal Medicine Geriatric Medicine
DX: Z12.31 Encounter for screening mammogram for malignant neoplasm of breast (principal)
CPT/HCPCS: 77063; 77067

== ENCOUNTER → 2024-11-10 13:45 | Outpatient (BNV) | payer OTHER, SELFPAY | PROVIDERS: PCP Internal Medicine Geriatric Medicine; Visit Provider Internal Medicine | DX: Z12.31 Encounter for screening mammogram for malignant neoplasm of breast (principal) | CPT/HCPCS: 77063; 77067 ==

== ENCOUNTER 2024-11-23 17:14 | Outpatient (REF) | payer OTHER, SELFPAY ==
--- OUTSIDE RECORDS SUMMARY | 2024-11-23 19:28 | XMS_ITS | Encounter Summary ---
Author Organization [employer] Address [address] [facility] 7t [place] [address] Care Team Providers Care Senior Application Security Consultant Name Role Phone Name, Reynold FAUST Primary Care Provider Reason for Visit * Reason Comments Med Refill Encounter Details Date Type Department Care Team ([facility] Contact Info) Description 12/22/2022 Refill [facility] [address] [place] [address] Name, MD Reynold 230 [place] [address] Rash Social History Tobacco Use Types Packs/Day [...] Upcoming Encounters Date Type Department Care Team ([facility] Contact Info) Description 12/02/2024 8:30 AM EDT Office Visit [facility] AD[facility] DENTAL [address] [place] [address] Elisabet Greer DDS [address] [place] [address] 12/09/2024 10:45 AM EDT Office Visit [address] [phone] Dayron Rowell MD [address] [place] [address] [phone] 12/27/2024 9:45 AM EDT Office Visit [address] [address] documented as of this encounter Visit Diagnoses Diagnosis Rash Rash and other nonspecific skin eruption documented in this encounter Care Teams Senior Application Security Consultant Relationship Specialty Start Date End Date Name, MD Reynold [address] [place] [address] PCP - General Family Medicine 12/26/15 documented as of this encounter
--- OUTSIDE RECORDS SUMMARY | 2024-11-23 19:28 | XMS_ITS | Encounter Summary ---
Author Organization [employer] Address [address] [facility] [address] 7t [place] [address] Care Team Providers Care Felt Dyeing Machine Tender Name Role Phone Name, Reynold FAUST Primary Care Provider [phone] Encounter Details Date Type Department Care Team (Latest Contact Info) Description 11/18/2024 Travel Social History Tobacco Use Types Packs/Day [...] Care Team (Late st Contact Info) Description 12/02/2024 8:30 AM EDT Office Visit [facility] D[facility] 230 [place] [address] Elisabet Greer DDS [address] [place] [address] 12/09/2024 10:45 AM EDT Office Visit [facility] [address] [place] [address] Dayron Rowell MD 230 [place] [address] 12/27/2024 9:45 AM EDT Office Visit [facility] [address] [place] [address] documented as of this encounter Visit Diagnoses Not on filedocumented in this encounter Additional Health Concerns Assessment Noted Time PHQ-9 Depression Total Score: 7 12/11/19 24 11:10 AM EDT documented as of this encounter Care Teams Felt Dyeing Machine Tender Relationship Specialty Start Date End Date Name, MD Reynold [address] [place] [address] PCP - General Family Medicine 12/26/15 documented as of this encounter
--- OUTSIDE RECORDS SUMMARY | 2024-11-23 19:28 | XMS_ITS | Encounter Summary ---
Author Organization [employer] Address [address] [facility] 7t [place] [address] Care Team Providers Care Pediatric Lpn Name Role Phone Name, Reynold FAUST Primary Care Provider [phone] Reason for Visit * Reason Onset Date Comments partial adjustment made elsewhere 11/04/2024 Encounter Details Date Type Department Care Team ([facility] st Contact Info) Description 11/04/2024 Telephone [facility] ADULT DENTAL [address] [place] [address] SolorzanoElisabet Reyes, DDS [address] [place] [address] partial adjustment made elsewhere Social History Tobacco [...] fashioned by our clinic. DR Luis carries [facility] [email or web address] for insurance and we accept [employer] insurance in our facilities documented in this encounter Plan of Treatment Upcoming Encounters Date Type Department Care Team (Late st Contact Info) Description 12/02/2024 8:30 AM EDT Office Visit [facility] ADULT DENTAL [address] [place] [address] Elisabet Greer DDS [address] [place] [address] 12/09/2024 10:45 AM EDT Office Visit [facility] MEDICINE [address] [place] [address] Dayron Rowell MD 230 [place] [address] 12/27/2024 9:45 AM EDT Office Visit [facility] [address] [facility] [place] [address] documented as of this encounter Visit Diagnoses Not on filedocumented in this encounter Additional Health Concerns Assessment Noted Time PHQ-9 Depression Total Score: 7 12/11/19 24 11:10 AM EDT documented as of this encounter Care Teams Pediatric Lpn Relationship Specialty Start Date End Date Name, MD Reynold [address] [facility] [place] [address] PCP - General Family Medicine 12/26/15 documented as of this encounter
--- OUTSIDE RECORDS SUMMARY | 2024-11-23 19:28 | XMS_ITS | Encounter Summary ---
Author Organization [employer] Address [address] [facility] 7t [place] [address] Care Team Providers Care Dry Kiln Worker Name Role Phone Name, Reynold FAUST Primary Care Provider [phone] Reason for Visit * Reason Onset Date Comments ASSEMBLER WATCH TRAIN Agreement signed today 11/01/2024 Encounter Details Date Type Department Care Team ([facility] st Contact Info) Description 11/01/2024 Telephone [facility] MEDICINE [address] [place] [address] Leeanna Paulino, RN ASSEMBLER WATCH TRAIN Agreement signed today Social History Tobacco Use [...] EST Pt attended chronic pain group today. ASSEMBLER WATCH TRAIN Agreement was reviewed and signed. BPI updated [...] Description 12/02/2024 8:30 AM EDT Office Visit [facility] ADULT DENTAL [address] [place] [address] Elisabet Greer, DDS [address] [place] [address] 12/09/2024 10:45 AM EDT Office Visit [facility] MED[facility]INE [address] [place] [address] Dayron Rowell MD 230 [place] [address] 12/27/2024 9:45 AM EDT Office Visit [facility] MED[facility] [address] [place] [address] documented as of this encounter Visit Diagnoses Not on filedocumented in this encounter Additional Health Concerns Assessment Noted Time PHQ-9 Depression Total Score: 7 12/11/19 24 11:10 AM EDT documented as of this encounter Care Teams Dry Kiln Worker Relationship Specialty Start Date End Date Name, MD Reynold 230 [place] [address] PCP - General Family Medicine 12/26/15 documented as of this encounter
--- OUTSIDE RECORDS SUMMARY | 2024-11-23 19:28 | XMS_ITS | Encounter Summary ---
Author Organization [employer] Address [address] [facility] [address] 7t [place] [address] Care Team Providers Care Certified Nurse Operating Room Name Role Phone Name, Reynold FAUST Primary Care Provider [phone] Encounter Details Date Type Department Care Team [...] 8:30 AM EDT Office Visit [facility] 230 [place] [address] Elisabet Greer DDS 230 [place] [address] 12/09/2024 10:45 AM EDT Office Visit [facility] [address] [place] [address] Dayron Rowell MD 230 [place] [address] 12/27/2024 9:45 AM EDT Office Visit [facility] [address] [place] [address] documented as of this encounter Visit Diagnoses Not on filedocumented in this encounter Additional Health Concerns Assessment Noted Time PHQ-9 Depression Total Score: 7 12/11/19 24 11:10 AM EDT documented as of this encounter Care Teams Certified Nurse Operating Room Relationship Specialty Start Date End Date Name, MD Reynold [address] [place] [address] PCP - General Family Medicine 12/26/15 documented as of this encounter
--- OUTSIDE RECORDS SUMMARY | 2024-11-23 19:28 | XMS_ITS | Encounter Summary ---
Author Organization [employer] Address [address] [place] [address] 7 [place] [address] Care Team Providers Care Maritime Officer Name Role Phone Name, Reynold FAUST Primary Care Provider [phone] Reason for Visit * Reason Comments Med Refill Encounter Details Date Type Department Care Team (Late st Contact Info) Description 03/11/2023 Refill [facility] MED[facility] 230 [place] [address] Name, MD Reynold [address] [place] [address] Chronic cough Social History Tobacco Use Types [...] Description 12/02/2024 8:30 AM EDT Office Visit [facility] ADULT DENT[facility] 230 [place] [address] Elisabet Greer DDS [address] [place] [address] 12/09/2024 10:45 AM EDT Office Visit [facility] MED[facility] [address] [place] [address] Dayron Rowell MD [address] [place] [address] 12/27/2024 9:45 AM EDT Office Visit [facility] [address] [place] [address] documented as of this encounter Visit Diagnoses Diagnosis Chronic cough Cough documented in this encounter Care Teams Maritime Officer Relationship Specialty Start Date End Date Name, MD Reynold [address] [place] [address] PCP - General Family Medicine 12/26/15 documented as of this encounter
--- OUTSIDE RECORDS SUMMARY | 2024-11-23 19:28 | XMS_ITS | Encounter Summary ---
Author Organization [employer] Address [address] [facility] 7t [place] [address] Care Team Providers Care Continuous Conveyor Screen Drier Name Role Phone Name, Reynold FAUST Primary Care Provider [phone] Encounter Details Date Type Department Care Team (Latest Contact Info) Description 11/01/2024 9:45 AM EST Clinical Support [facility] [address] [place] [address] Kristen Williamson, STEVO [address] [place] [address] Primary osteoarthritis of right knee (Primary Dx); [facility] (current) use of opiate analgesic; Rheumatoid arthritis [...] this encounter Progress Notes * Kristen Williamson, ASSISTANT WRESTLING COACH - 11/01/2024 9:45 AM EST Subjective: Cece Maurer is a 59 y.o. female w/ PMH RA, OA of hip and knee, HTN, radiation fibrosis of the lung, GERD, pre-DM, h/o breast cancer who presents to the office for - Chronic Pain Clinic Groupvisits. Initial Group visit: 05/31/24 Group Visit Number: 3 Last PCP visit: 06/27/24, Dr. Crowell Group Confidentiality Signed: 05/31/24 Group Topic: [facility] Chronic Pain History: Associated Diagnosis: Rt knee osteoarthritis, seropositive RA Relevant Imaging: None available Current pharm tx: Tramadol 50mg q8 hours, also taking Ativan 0.5mg daily prn Medication: States taking medication as prescribed. Specialists: [facility] Rheumatology Imaging: previous XR, no recent on [...] Drug Screen (Completed) Other Rheumatoid arthritis (CMS/HCC) [facility]CI (current) use of opiate analgesic Overview Medication: Tramadol 50mg TID PRN Indication: OA right knee, seropositive RA Last AQUA AMMONIA OPERATOR Agreement: 11/01/24 Tier: II (Q3 weeks) Current Assessment & Plan Timeline: - 11/01/24: Group Visit - utox/pill tox wnl. Agreement renewed. Follow up: 1-2 for Group Chronic Pain Clinic. Follow up as scheduled with PCP, sooner as needed. * Leeanna Paulino RN - 11/01/2024 9:45 AM EST AQUA AMMONIA OPERATOR personal shopper: PDMP reviewed today. Last fill date: 10/20/24 Tramadol 50mg count was 54, anticipated 47 to be remaining. UTOX completed. Negative for all substances: AMP, BAR, BUP, BZO, ALDAIR, FTY, MDMA, MET, MOP, MTD, OXY, PCP, TCA, THC. UTOX as expected. AQUA AMMONIA OPERATOR Agreement reviewed and signed. BPI updated today. Pain severity score of 8.8, activity interference score of 4. Previous BPI completed 05/31/24 with pain severity score of 8.8, activity interference score of 5.1. Will update PCP with BPI scoring. documented in this encounter Miscellaneous Notes * Assessment & Plan Note - STEVO Wheeler - 11/01/2024 4:41 PM ESTAssociated Problem(s): long term care administrator (current) use of opiate analgesic Timeline: - [...] Description 12/02/2024 8:30 AM EDT Office Visit [facility] ADULT D[facility] [address] [place] [address] Elisabet Greer DDS [address] [place] [address] 12/09/2024 10:45 AM EDT Office Visit [facility] 230 [place] [address] Dayron Rowell MD 230 [place] [address] 12/27/2024 9:45 AM EDT Office Visit [facility] [address] [place] [address] documented as of this encounter Procedures Procedure Name Priority Date/Time Associated Diagnosis Comments POCT NAIKA-14 URINE DRUG SCREEN Routine 11/01/2024 2:07 PM EST Primary osteoarthritis of right knee documented in this encounter Results * POCT ANIKA-14 Urine Drug Screen (11/01/2024 2:07 PM EST) Urine Urine specimen obtained by clean catch procedure / Unknown 11/01/2024 2:07 PM EST Leeanna Claudio RN - 11/01/2024 2:07 PM EST UTOX cup Lot#[id number] Exp. 06/15/26 Internal Pass Control Negative for all substances us Kristen Phalen ASSISTANT WRESTLING COACH POINT OF CARE TEST ENTER/EDIT ORDERABLES Final Result documented in this encounter Visit Diagnoses Diagnosis Primary osteoarthritis of right knee- Primary [facility]CI (current) use of opiate analgesic Rheumatoid arthritis involving multiple sites, unspecified whether rheumatoid factor present ([facility]) documented in this encounter Additional Health Concerns Assessment Noted Time PHQ-9 Depression Total Score: 7 12/11/19 24 11:10 AM EDT documented as of this encounter Care Teams Continuous Conveyor Screen Drier Relationship Specialty Start Date End Date Name, MD Reynold [address] [place] [address] PCP - General Family Medicine 12/26/15 documented as of this encounter
--- OUTSIDE RECORDS SUMMARY | 2024-11-23 19:28 | XMS_ITS | Encounter Summary ---
Author Organization [employer] Address 75 [facility] 7 [place] [address] Care Team Providers Care Riprap Man Name Role Phone Name, Reynold FAUST Primary Care Provider [phone] Reason for Visit * Reason Comments Dentures Encounter Details Date Type Department Care Team ([facility] st Contact Info) Description 11/11/2024 1:30 PM EST Office Visit [facility] ADULT DENTAL [address] [place] [address] Elisabet Greer, DDS [address] [place] [address] Poorly fitting dentures (Primary Dx) Social History Tobacco Use Types Packs/Day Years [...] as of this encounter Progress Notes * Elisabet Greer DDS - 11/11/2024 1:30 PM EST Dental procedures in this visit D0140 - LIMITED ORAL EVALUATION - PROBLEM FOCUSED (Completed) Service provider: Elisabet Greer DDS Billing provider: Elisabet Greer DDS [id number] - CASE PRESENTATION, DETAILED AND EXTENSIVE TREATMENT PLANNING (Completed) Service provider: Elsiabet Greer DDS Billing provider: Elisabet Greer DDS Patient ID: Cece Maurer is a 59 y.o. female. Time Out: No data recorded Location: [facility] Tooth: Mandible Procedure: limited exam Verified the above with patient, intellectual property legal assistant, and provider. Confirmed via patient's chart, intraorally and by radiographs. Talent Coordinator: not applicable Chief Complaint Patient presents with Dentures Medical Hx: Vitals: There were no vitals taken for this visit. Past Medical History: Diagnosis Date Asthma Breast cancer (CMS/HCC) Bilateral breast cancer detected 2018 and Sep 2019 Pt had surgery to remove the lumps Hypertension Osteoporosis Rheumatoid arthritis (CMS/HCC) Steatosis of liver Thrombocytopenia (CMS/HCC) Medications: Outpatient Encounter Medications as of 11/11/2024 Medication Sig Dispense Refill Blood Pressure kit Use twice a day 1 kit 0 calcitriol (Rocaltrol) 0.25 MCG capsule Take 0.25 mcg by mouth Once per day. celecoxib (CeleBREX) 200 MG capsule TAKE 1 CAPSULE BY MOUTH EVERY DAY 30 capsule 0 cholecalciferol (Vitamin D-3) 50 MCG (2000 UT) capsule 50 mcg. cloNIDine (Catapres) 0.1 MG tablet TAKE 1 TAB BY MOUTH IN THE MORNING AND 2 TABLETS AT BEDTIME 270 tablet 0 cloNIDine (Catapres) 0.2 MG tablet TAKE 1 TABLET BY MOUTH EVERY DAY 90 tablet 1 dexlansoprazole (Dexilant) [address] capsule Take 1 capsule by mouth in the morning. famotidine (Pepcid) 40 MG tablet Take 40 mg by mouth at bedtime. hydrocortisone 1 % cream APPLY TO AFFECTED AREA TWICE A DAY 56 g 3 LORazepam (Ativan) 0.5 MG tablet Take 0.5 mg by mouth if needed each day for anxiety. nortriptyline (Pamelor) 10 MG capsule Take 10 mg by mouth at bedtime. nystatin (Mycostatin) cream Apply 1 Application. topically 2 times daily. QUEtiapine (SEROquel) 50 MG tablet Take 50 mg by mouth 2 times daily. traMADol (Ultram) 50 MG tablet TAKE 1 TABLET BY MOUTH IN THE MORNING, AT NOON AND AT BEDTIME IF NEEDED FOR SEVERE PAIN 84 tablet 0 Ventolin HFA 108 (90 Base) MCG/ACT inhaler INHALE 2 PUFFS EVERY 6 HOURS IF NEEDED FOR WHEEZING. 18 g 2 No facility-administered encounter medications on file as of 11/11/2024. Subjective: The patient visited the office seeking a new pair of removable partial dentures (RPDs). She had previously had four pairs designed at another dental facility, [facility], but ultimately decided to seek a new dentist due to her dissatisfaction with the results. Additionally, she was informed that her insurance does not cover the cost of the RPDs. Concerned about the fit of her dentures and the multiple design attempts that were unsuccessful, it was recommended that she be referred to a prosthodontics specialist to better address her specific needs. The patient was satisfied with this plan andwill follow up as necessary. Dismissed in good condition. Client Support Consultant: Paula Atkins Dentist: Elisabet Greer DDS documented in this encounter Plan of Treatment Upcoming Encounters Date Type Department Care Team (Late st Contact Info) Description 12/02/2024 8:30 AM EDT Office Visit [facility] ADULT D[facility] [address] [place] [address] Elisabet Greer, DDS [address] [place] [address] 12/09/2024 10:45 AM EDT Office Visit [facility] MEDICINE [address] [place] [address] Dayron Roewll MD [address] [place] [address] 12/27/2024 9:45 AM EDT Office Visit [facility] MED[facility] [address] [place] [address] documented as of this encounter Procedures Procedure Name Priority Date/Time Associated Diagnosis Comments LIMITED ORAL EVALUATION - PROBLEM FOCUSED Routine 11/11/2024 1:30 PM EST Poorly fitting dentures CASE PRESENTATION, DETAILED AND EXTENSIVE TREATMENT PLANNING Routine 11/11/2024 1:30 PM EST Poorly fitting dentures documented in this encounter Visit Diagnoses Diagnosis Poorly fitting dentures- Primary documented in this encounter Additional Health Concerns Assessment Noted Time PHQ-9 Depression Total Score: 7 12/11/19 24 11:10 AM EDT documented as of this encounter Care Teams Riprap Man Relationship Specialty Start Date End Date Name, MD Reynold [address] [place] [address] PCP - General Family Medicine 12/26/15 documented as of this encounter
--- OUTSIDE RECORDS SUMMARY | 2024-11-23 19:28 | XMS_ITS | Encounter Summary ---
Author Organization [employer] Address [address] [place] [address] 7 [place] [address] Care Team Providers Care Irrigation Tax Assessor Collector Name Role Phone Name, Reynold FAUST Primary Care Provider [phone] Encounter Details Date Type Department Care Team (Late st Contact Info) Description 11/11/2022 Orders Only [facility] MEDICINE [address] [place] [address] [phone] Valeria Heredia LPN Social History Tobacco Use [...] 12/02/2024 8:30 AM EDT Office Visit [facility] ADULT DENTAL [address] [place] [address] Elisabet Greer, DDS [address] [place] [address] 12/09/2024 10:45 AM EDT Office Visit [facility] MEDICINE [address] [place] [address] Dayron Rowell MD [address] [place] [address] 12/27/2024 9:45 AM EDT Office Visit [facility] MEDICINE [address] [place] [address] documented as of this encounter Procedures Procedure Name Priority Date/Time Associated Diagnosis Comments XR CHEST 2 VIEWS Routine 11/28/2022 4:19 PM EST documented in this encounter Results * XR Chest 2 Views (11/28/2022 4:19 PM EST) Anatomical Region Laterality Modality Chest Radiographic Milla ging 11/28/2022 4:19 PM EST Narrative 11/29/2022 12:42 PM EST ? [facility] ?[address] ?[place] [address] ?XRay Report ? Signed ? Patient: Isaías Maurer,Cece ?MR#: MM ?? [id number] ? : 1965 ?Acct:[id number] ? Age/Sex: 57 / F ?ADM Date: 11/28/22 ? Loc: HO.XRAY ? Attending Dr: Reynold Crowell MD ? Ordering Physician: Reynold Crowell MD ?? Date of Service: 11/28/22 ?? Procedure(s): XR chest 2V ?? Accession Number(s): [id number] ? cc: Reynold Crowell MD ? EXAMINATION: [...] signed by Zan Barrios MD in OV> ?03/11/23 1239 ? DD/DT: 03// 1619 ? TD/TT: ? Senior Product Marketing Manager: DELEON ? Procedure Note Sukhi, Image - 11/29/2022 [facility] [address] [place] [address] XRay Report Signed Patient: Cece EspinosaMR#: [id number] : 1965Acct:[id number] Age/Sex: 57 / FADM Date: 11/28/22 Loc: HO.XRAY Attending Dr: Reynold Crowell MD Ordering Physician: Reynold Crowell MD Date of Service: 11/28/22 Procedure(s): XR chest 2V Accession Number(s): [id number] cc: Reynold Crowell MD EXAMINATION: XR CHEST [...] in OV> 11/29/22 1239 DD/ 1619 TD/TT: Senior Product Marketing Manager: DELEON [facility] External Provider IMG XR PROCEDURES Final Result documented in this encounter Visit Diagnoses Not on filedocumented in this encounter Care Teams Irrigation Tax Assessor Collector Relationship Specialty Start Date End Date Name, MD Reynold [address] [place] [address] PCP - General Family Medicine 12/26/15 documented as of this encounter
--- OUTSIDE RECORDS SUMMARY | 2024-11-23 19:28 | XMS_ITS | Encounter Summary ---
Author Organization [employer] Address [address] [facility] 7t [place] [address] Care Team Providers Care Washing Machine Striper Name Role Phone Name, Reynold FAUST Primary Care Provider [phone] Encounter Details Date Type Department Care Team (Late Contact Info) Description 03/30/2023 Orders Only [facility] CHC MED & PEDS [address] [place], [place] [phone] Sadia Silva LPN Social History Tobacco Use [...] Department Care Team (Late Contact Info) Description 12/02/2024 8:30 AM EDT Office Visit [facility] ADULT DENTAL [address] [place] [address] Elisabet Greer DDS [address] [place], [place] [phone] 12/09/2024 10:45 AM EDT Office Visit [facility] MEDICINE [address] [place] [address] Dayron Rowell MD [address] [place] [address] 12/27/2024 9:45 AM EDT Office Visit [facility] [place] [address] documented as of this encounter Visit Diagnoses Not on filedocumented in this encounter Care Teams Washing Machine Striper Relationship Specialty Start Date End Date Name, [place] [address] PCP - General Family Medicine 12/26/15 documented as of this encounter
--- OUTSIDE RECORDS SUMMARY | 2024-11-23 19:28 | XMS_ITS | Encounter Summary ---
Author Organization [employer] Address [address] [facility] 7t [place] [address] Care Team Providers Care Network Planner Name Role Phone Name, Reynold FAUST Primary Care Provider [phone] Encounter Details Date Type Department Care Team [...] 12/02/2024 8:30 AM EDT Office Visit [facility] ADULT DENTAL [address] [place] [phone] Elisabet Greer DDS [address] [place] [address] 12/09/2024 10:45 AM EDT Office Visit [facility] MEDICINE [address] [place] [address] Dayron Rowell MD [address] [place] [address] 12/27/2024 9:45 AM EDT Office Visit [facility] MEDICINE [address] [place] [address] documented as of this encounter Procedures Procedure Name Priority Date/Time Associated Diagnosis Comments BI MAMMOGRAM SCREENING TOMOSYNTHESIS BILATERAL Routine 11/10/2024 1:45 PM EST T-SPOT(R).TB Routine 10/31/2024 2:04 PM EST HEPATITIS PANEL, GENERAL Routine 10/31/2024 2:04 PM EST documented in this encounter Results * BI Mammogram Screening Tomosynthesis Bilateral (11/10/2024 1:45 PM EST) Anatomical Region Laterality Modality Breast Bilateral Mammography 11/10/2024 1:45 PM EST Narrative 11/10/2024 2:38 PM EST ? [facility] ? [address] ?[place] [address] ? Mammography Report ? Signed ? Patient: Isaías Maurer,Cece ?MR#: MM ?? [id number] ? : 1965 ?Acct:[id number] ? Age/Sex: 59 / F ?ADM Date: 11/10/24 ? Loc: HO.MAMMO ? Attending Dr: Reynold Crowell MD ? Ordering Physician: Reynold Crowell MD ?Results: 2Benign Fi ?? ndings ? Date of Service: 11/10/24 ?Follow Up: 1 Year From Orig ?? inal Mammogram ? Procedure(s): MM tomosynthesis screening BI ?? Accession Number(s): [id number] ? cc: Reynold Crowell MD ? EXAMINATION: ?? MM SCREENING DIGITAL BREAST TOMOSYNTHESIS, BILATERAL ? CLINICAL INFORMATION: ? Screening. Asymptomatic. ??History of bilateral breast cancer status ?? post lumpectomy and conservation therapy. ?? Shouldn't has persistent right breast pain same as March 2024 for which ?? she had diagnostic workup. ? COMPARISON: ?? Mammography: Comparison is made with available priors ? TECHNIQUE: ?? Digital breast mammography with tomosynthesis is performed in both the ?? craniocaudal and mediolateral oblique views along with computer-aided ?? detection (CAD). ? FINDINGS: ?? The breasts are heterogeneously dense, which may obscure small masses ?? (ACR BI-RADS breast composition Category c). ?? Bilateral post lumpectomy changes are stable. ?? There are no significant masses, abnormal calcifications, or other ?? abnormalities. ? MM/MM tomosynthesis screening BI ?? IMPRESSION: ?? No mammographic evidence of malignancy. ?? Patient has right breast pain and intermittent palpable lump and breast ?? pruritus. Recommend clinical evaluation and if there is focal lump and ?? or pain or if deemed clinically significant a diagnostic workup can be ?? ordered and performed. ? ASSESSMENT: ? BI-RADS BI-RADS 2 - Benign Findings ? RECOMMENDATION: ?? Routine annual mammography screening. ? 1 year F/U ? This examination should not preclude the clinical evaluation of a ?? suspicious palpable abnormality. ? This patient's information was entered into a reminder system with a ?? target due date for their next mammogram. ? Electronically signed by: ??Gracia Ordoñez DO ??11/10/2024 02:35 PM EST ? Dictated By: ?Gracia Ordoñez DO ? Signed By: ?<Electronically signed by Gracia Ordoñez, DO in OV> ? 11/10/24 1435 ? DD/ 1345 ? TD/TT: 11/10/24 1422 ? On Site Services Specialist: ? Procedure Note Douglas Isbell - 11/10/2024 [facility] [address] [place] [address] Mammography Report Signed Patient: Cece Espinosa#: [id number] : 1965Acct:[id number] Age/Sex: 59 / FADM Date: 11/10/24 Loc: BRY[facility] Attending Dr: Reynold Crowell MD Ordering Physician: Reynold Crowell MDResults: 2Benign Fi ndings Date of Service: 11/10/24Follow Up: 1 Year From Orig inal Mammogram Procedure(s): MM tomosynthesis screening BI Accession Number(s): [id number] cc: Reynold Crowell MD EXAMINATION: MM SCREENING DIGITAL BREAST TOMOSYNTHESIS, BILATERAL CLINICAL INFORMATION: Screening. Asymptomatic. History of bilateral breast cancer status post lumpectomy and conservation therapy. Shouldn't has persistent right breast pain same as March 2024 for which she had diagnostic workup. COMPARISON: Mammography: Comparison is made with available priors TECHNIQUE: Digital breast mammography with tomosynthesis is performed in both the craniocaudal and mediolateral oblique views along with computer-aided detection (CAD). FINDINGS: The breasts are heterogeneously dense, which may obscure small masses (ACR BI-RADS breast composition Category c). Bilateral post lumpectomy changes are stable. There are no significant masses, abnormal calcifications, or other abnormalities. MM/MM tomosynthesis screening BI IMPRESSION: No mammographic evidence of malignancy. Patient has right breast pain and intermittent palpable lump and breast pruritus. Recommend clinical evaluation and if there is focal lump and or pain or if deemed clinically significant a diagnostic workup can be ordered and performed. ASSESSMENT: BI-RADS BI-RADS 2 - Benign Findings RECOMMENDATION: Routine annual mammography screening. 1 year F/U This examination should not preclude the clinical evaluation of a suspicious palpable abnormality. This patient's information was entered into a reminder system with a target due date for their next mammogram. Electronically signed by: Gracia Ordoñez DO 11/10/2024 02:35 PM EST Dictated By: Gracia Ordoñez DO Signed By: <Electronically signed by Gracia Ordoñez DO in OV> 11/10/24 1435 DD/ 1345 TD/TT: 11/10/24 1422 On Site Services Specialist: Reynold Name MD MORSE BI PROCEDURES Final Result * T-SPOT??.TB (10/31/2024 2:04 PM EST) T Spot TB Negative Negative [facility] Comment:A negative test resu lt does [...] as aquantitative test. TS PANEL A 1 [facility] TS PANEL B 0 [facility] Negative Control Passed [facility] Positive Control Passed [facility] Comment:For additional infor mation, please refer tohttp://education.[employer]/faq/MTV883(This link is being provided for informational/educational purposes only.)THIS TEST WAS PERFORMED AT:[employer] [id number] [place] [address]GWCEGPS W. MASON,MD,PHD 10/31/2024 2:04 PM EST 10/31/2024 2:04 PM EST us Generic External Data Provider LAB BLOOD ORDERAB LES Final Result [facility] [address] [place] [phone] * Hepatitis Panel, General (10/31/2024 2:04 PM EST) Hepatitis A IgM Nonreactive Nonreactive [facility] Comment:IgM antibodies to CORONADO V not detected; does not exclude earlyacute or recovered HAV infection. ~Hepatitis B Surface Antibody REACTIVE Nonreactive [facility] Comment:REACTIVE: > 11.99 mI U/mL Hepatitis B Core Antibody Nonreactive Nonreactive [facility] Hepatitis C Antibody Nonreactive Nonreactive [facility] Comment:Antibodies to HCV no t detected; does not exclude early acuteHCV infection. Hepatitis B Surface Ag Negative Negative [facility] 10/31/2024 2:04 PM EST 10/31/2024 2:04 PM EST us Generic External Data Provider LAB BLOOD ORDERAB LES Final Result [facility] [address] [place] [phone] documented in this encounter Visit Diagnoses Not on filedocumented in this encounter Additional Health Concerns Assessment Noted Time PHQ-9 Depression Total Score: 7 12/11/19 24 11:10 AM EDT documented as of this encounter Care Teams Network Planner Relationship Specialty Start Date End Date Name, MD Reynold [address] [place] [phone] PCP - General Family Medicine 12/26/15 documented as of this encounter
--- OUTSIDE RECORDS SUMMARY | 2024-11-23 19:28 | XMS_ITS | Encounter Summary ---
Author Organization [employer] Address [address] 7t [place] [address] Care Team Providers Care Blind Cleaner Name Role Phone Name, Reynold FAUST Primary Care Provider [phone] Encounter Details Date Type Department Care Team (Latest Contact Info) Description 11/16/2024 Travel Social History Tobacco Use Types Packs/Day [...] Description 12/02/2024 8:30 AM EDT Office Visit [facility] ADULT DENTAL [address] [place] [address] Elisabet Greer DDS [address] [place] [address] 12/09/2024 10:45 AM EDT Office Visit [facility] MEDICINE [address] [place] [address] Dayron Rowell MD [address] [place] [address] 12/27/2024 9:45 AM EDT Office Visit [facility] [address] [place] [address] documented as of this encounter Visit Diagnoses Not on filedocumented in this encounter Additional Health Concerns Assessment Noted Time PHQ-9 Depression Total Score: 7 12/11/19 24 11:10 AM EDT documented as of this encounter Care Teams Blind Cleaner Relationship Specialty Start Date End Date Name, MD Reynold [address] [place] [address] PCP - General Family Medicine 12/26/15 documented as of this encounter
--- OUTSIDE RECORDS SUMMARY | 2024-11-23 19:28 | XMS_ITS | Encounter Summary ---
Author Organization [employer] Address [address] [place] [address] 7t [place] [address] Care Team Providers Care Regional Clinical Director Name Role Phone Name, Reynold FAUST Primary Care Provider [phone] Encounter Details Date Type Department Care Team (Late st Contact Info) Description 10/13/2022 Orders Only [facility] CHC MED & PEDS [address] [place], [place] [phone] Sadia Silva LPN Social History Tobacco Use [...] Description 12/02/2024 8:30 AM EDT Office Visit [facility] ADULT DENTAL [address] [place] [address] Solorzano-Arzate, Elisabet, DDS [address] [place] [address] 12/09/2024 10:45 AM EDT Office Visit [facility] MEDICINE [address] [place] [address] Dayron Rowell MD [address] [place] [address] 12/27/2024 9:45 AM EDT Office Visit [facility] MEDICINE [address] [place] [address] documented as of this encounter Procedures Procedure Name Priority Date/Time Associated Diagnosis Comments CBC WITH AUTO DIFFERENTIAL Routine 11/08/2022 10:25 AM EST HEMOGLOBIN A1C Routine 11/08/2022 10:25 AM EST LIPID PANEL, STANDARD Routine 11/08/2022 10:25 AM EST COMPREHENSIVE METABOLIC PANEL Routine 11/08/2022 10:25 AM EST documented in this encounter Results * Lipid Panel, Standard (11/08/2022 10:25 AM EST) Triglycerides 142 mg/dL [facility] Comment:Desirable Triglyceri de: less than 150 mg/dLBorderline High Triglyceride 150-199 mg/dLHigh Triglyceride: 200-499 mg/dLVery High Triglyceride: greater than or equal to 5OO mg/dL Cholesterol 225 mg/dL [facility] Comment:Desirable Cholestero l: less than 200 mg/dLBorderline High Cholesterol: 200-239 mg/dLHigh Cholesterol: greater than 239 mg/dL LDL Cholesterol Calculated 131 mg/dl [facility] Comment:Desirable LDL: less than 100 mg/dLNear Optimal/Above Optimal LDL: 110- 129 mg/dLBorderline High LDL: 130-159 mg/dLHigh LDL: 160-189 mg/dLVery High LDL: greater than or equal to 190 mg/dL HDL Cholesterol 66 mg/dL [facility] Comment:Desirable HDL: great er than 40 mg/dL Note: This HDL assay may give artificially low results in patients with liver disease. 11/08/2022 10:2 5 AM EST 11/08/2022 10:25 AM EST us [facility] External Provider LAB BLO OD ORDERABLES Final Result [facility] [address] [place] [phone] * (ABNORMAL) Comprehensive Metabolic Panel (11/08/2022 10:25 AM EST) Sodium 143 135 - 145 mmol/L [facility] Potassium 4.1 3.3 - 5.1 mmol/L [facility] Chloride 106 96 - 108 mmol/L [facility] Carbon Dioxide 27 22 - 29 mmol/L [facility] Anion Gap 14 12 - 20 [facility] Urea Nitrogen (BUN) 23(H) 9 - 16 mg/dL [facility] Creatinine, Serum 0.81 0.5 - 1.4 mg/dL [facility] Estimated Glomerular Filt Rate >60 [facility] Comment:NOTE: For -Am erican individuals, multiply the result by 1.210.Chronic Kidney Disease: Estimated GFR < 60 mL/min/1.73p7Axzphw Kidney Disease: Estimated GFR < 15 mL/min/1.73m2 Glucose 107 60 - 115 mg/dL [facility] Calcium 9.5 8.4 - 10.2 mg/dL [facility] Bilirubin, Total 0.5 0.0 - 1.0 mg/dL [facility] Aspartate Amino Transferase 24 5 - 31 U/L [facility] Alanine Aminotransferase 27 0 - 31 U/L [facility] Total Protein 7.5 6.5 - 8.0 g/dL [facility] Albumin Level 4.2 3.5 - 5.0 g/dL [facility] Alkaline Phosphatase 79 39 - 117 U/L [facility] 11/08/2022 10:2 5 AM EST 11/08/2022 10:25 AM EST us [facility] External Provider LAB BLO OD ORDERABLES Final Result [facility] [address] [place] [address] [phone] * Hemoglobin A1c (11/08/2022 10:25 AM EST) Hemoglobin A1c 6.2 % [facility] Comment:Hemoglobin A1C Refer ence Range Adults: 4.8 - 6.0 % Non diabetic: < 6.0 % Goal: < 7.0 %Additional Action Suggested: > 8.0 %Note: Hemoglobin A1c results are invalid for patients with abnormal amounts of HbF. Blood transfusions may impact the HbA1c concentration in the patient sample. Estimated Average Glucose 131 mg/dL [facility] Comment:eAG = Estimated ave rage glucose which is %A1C expressed asaverage glucose, using the formula of the F3S-McsdzejZkkqpkm Glucose study (ADAG), Diabetes Care, Vol.31,#8,2007 11/08/2022 10:2 5 AM EST 11/08/2022 10:25 AM EST [facility] External Provider LAB BLO OD ORDERABLES Final Result Performing Organization Address City/State/[facility] Co de Phone Number [facility] [address] [place] [phone] * (ABNORMAL) CBC auto differential (11/08/2022 10:25 AM EST) White Blood Count 3.9(L) 4.8 - 10.8 X10*3/uL [facility] Red Blood Count 4.47 4.20 - 5.50 X10*6/uL [facility] Hemoglobin 12.2 12.0 - 16.0 g/dl [facility] Hematocrit 38.1 37.0 - 47.0 % [facility] Mean Corpuscular Volume 85.2 80.0 - 98.0 fL [facility] Mean Corpuscular Hemoglobin 27.3 27.0 - 33.0 pg [facility] Mean Corpuscular HGB Conc 32.0 31.0 - 35.0 g/dl [facility] Red Cell Distribution Width 14.4 11.0 - 16.0 % [facility] Platelet Count 178 160 - 400 X10*3/uL [facility] Mean Platelet Volume 11.4 9.4 - 12.3 fL [facility] Neutrophils Percent Auto 65.0 45 - 73 % [facility] Imm Gran Pct Auto 0.3 0.0 - 0.4 % [facility] Lymphocytes Percent Auto 22.4 20 - 40 % [facility] Monocytes Percent Auto 8.7 2 - 11 % [facility] Eosinophils Percent Auto 2.8 0 - 4 % [facility] Basophils Percent Auto 0.8 0 - 2 % [facility] NRBC Pct Auto 0.0 0.0 - 0.2 /100WBC [facility] Neutrophils Absolute Auto 2.6 2.0 - 8.3 x10*3/uL [facility] Imm Gran Abs Auto 0.01 0.00 - 0.03 X10*3/uL [facility] Lymphocytes Absolute Auto 0.9(L) 1.2 - 4.9 X10*3/uL [facility] Monocytes Absolute Auto 0.3 0.1 - 1.2 X10*3/uL [facility] Eosinophils Absolute Auto 0.1 0.0 - 0.4 X10*3/uL [facility] Basophils Absolute Auto 0.0 0.0 - 0.2 X10*3/uL [facility] NRBC Abs Auto 0.000 0.0 - 0.012 X10*3/uL [facility] 11/08/2022 10:2 5 AM EST 11/08/2022 10:25 AM EST us [facility] External Provider LAB BLO OD ORDERABLES Final Result [facility] [address] [place] [phone] [phone] documented in this encounter Visit Diagnoses Not on filedocumented in this encounter Care Teams Regional Clinical Director Relationship Specialty Start Date End Date Name, [place] [address] PCP - General Family Medicine 12/26/15 documented as of this encounter
--- OUTSIDE RECORDS SUMMARY | 2024-11-23 19:28 | XMS_ITS | Encounter Summary ---
Author Organization [employer] Address [address] [facility] 7t [place] [address] Care Team Providers Care Paper Sealer Name Role Phone Name, Reynold FAUST Primary Care Provider [phone] Reason for Visit * Reason Onset Date Comments Durable Medical Equipment 11/17/2024 Knee s leeves Encounter Details Date Type Department Care Team (Late st Contact Info) Description 11/17/2024 Telephone [facility] [address] [place] [address] Name, MD Reynold [address] [place] [address] Durable Medical Equipment (Knee sleeves) Social History Tobacco Use Types Packs/Day Years [...] your housing situation today? I have julieth miladys 12/11/[address] you li [...] encounter Miscellaneous Notes * Telephone Encounter - Gaviota Morgan [place] - 11/21/2024 8:10 AM EST Medical necessity form has been signed by the PCP and faxed. Form is sent in for scanning. * Telephone Encounter - Ginny Liang - 11/17/2024 8:08 AM EST DME RX for knee sleeves generated and placed on providers desk for signature. * Telephone Encounter - Ginny Liang - 11/17/2024 8:08 AM EST ----- Message from Reynold Crowell MD sent at 11/17/2024 5:36 AM EST ----- The patient has chronic knee pain secondary to rheumatoid arthritis. She has been for prescription for knee sleeves and I agree. documented in this encounter Plan of Treatment Upcoming Encounters Date Type Department Care Team (Late st Contact Info) Description 12/02/2024 8:30 AM EDT Office Visit [facility] ADULT DENT[facility] [address] [place] [address] Elisabet Greer, DDS [address] [place] [address] 12/09/2024 10:45 AM EDT Office Visit [facility] [address] [place] [address] Dayron Rowell MD [address] [place] [phone] 12/27/2024 9:45 AM EDT Office Visit [facility] [address] [place] [address] documented as of this encounter Visit Diagnoses Not on filedocumented in this encounter Additional Health Concerns Assessment Noted Time PHQ-9 Depression Total Score: 7 12/11/19 24 11:10 AM EDT documented as of this encounter Care Teams Paper Sealer Relationship Specialty Start Date End Date Name, MD Reynold [address] [place] [address] PCP - General Family Medicine 12/26/15 documented as of this encounter
--- OUTSIDE RECORDS SUMMARY | 2024-11-23 19:28 | XMS_ITS | Encounter Summary ---
Author Organization [employer] Address [address] [facility] [address] 7t [place] [address] Care Team Providers Care Churn Operator Name Role Phone Name, Reynold FAUST Primary Care Provider Encounter Details Date Type Department Care Team (Latest Contact Info) Description 11/12/2024 Travel Social History Tobacco Use Types Packs/Day [...] Description 12/02/2024 8:30 AM EDT Office Visit [facility] ADULT DENTAL [address] [place] [address] Elisabet Greer DDS [address] [place] [address] 12/09/2024 10:45 AM EDT Office Visit [facility] MEDICINE [address] [place] [address] Dayron Rowell MD [address] [place] [address] 12/27/2024 9:45 AM EDT Office Visit [facility] MED[facility] [address] [place] [address] documented as of this encounter Visit Diagnoses Not on filedocumented in this encounter Additional Health Concerns Assessment Noted Time PHQ-9 Depression Total Score: 7 12/11/19 24 11:10 AM EDT documented as of this encounter Care Teams Churn Operator Relationship Specialty Start Date End Date Name, MD Reynold [address] [place] [address] PCP - General Family Medicine 12/26/15 documented as of this encounter
--- OUTSIDE RECORDS SUMMARY | 2024-11-23 19:28 | XMS_ITS | Encounter Summary ---
Author Organization [employer] Address [address] [facility] [address] 7t [place] [address] Care Team Providers Care Supervising Editor News Reel Name Role Phone Name, Reynold FAUST Primary Care Provider [phone] Encounter Details Date Type Department Care Team [...] Description 12/02/2024 8:30 AM EDT Office Visit [facility] ADULT DENTAL [address] [place] [address] Elisabet Greer DDS [address] [place] [address] 12/09/2024 10:45 AM EDT Office Visit [facility] MEDICINE [address] [place] [address] Dayron Rowell MD [address] [place] [address] 12/27/2024 9:45 AM EDT Office Visit [facility] MEDICINE [address] [place] [address] documented as of this encounter Visit Diagnoses Not on filedocumented in this encounter Additional Health Concerns Assessment Noted Time PHQ-9 Depression Total Score: 7 12/11/19 24 11:10 AM EDT documented as of this encounter Care Teams Supervising Editor News Reel Relationship Specialty Start Date End Date Name, MD Reynold [address] [place] [address] PCP - General Family Medicine 12/26/15 documented as of this encounter
--- OUTSIDE RECORDS SUMMARY | 2024-11-23 19:28 | XMS_ITS | Encounter Summary ---
Author Organization [employer] Address 75 [facility] 7 [place] [address] Care Team Providers Care Piccolo Mechanic Name Role Phone Name, Reynold FAUTS Primary Care Provider [phone] Reason for Visit * Reason Comments Follow-up Encounter Details Date Type Department Care Team ([facility] st Contact Info) Description 11/16/2024 2:30 PM EST Office Visit [facility] MEDICINE [address] [place], [place] [phone] Name, MD Reynold [address] [place] [address] 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 (CMS/HCC) (Primary Dx); Acute sore throat; Dysuria; Prediabetes; Essential hypertension Social History Tobacco Use Types [...] AM EDT documented as of this encounter Last Filed Vital Signs Vital Sign Reading Time Taken Comments Blood Pressure 155/91 11/16/2024 2:26 PM EST Pulse 78 11/16/2024 2:26 PM EST Temperature 36.8 ??C (98.2 ??F) 11/16/2024 2:26 PM ES T Respiratory Rate 20 11/16/2024 2:26 PM EST Oxygen Saturation 98% 11/16/2024 2:26 PM EST Inhaled Oxygen Concentration - - Weight 66.7 kg (147 lb) 11/16/2024 2:26 PM EST Height 149.9 cm (4' 11 ) 11/16/2024 2:26 PM EST Body Mass Index 29.69 11/16/2024 2:26 PM EST documented in this encounter Progress Notes * Reynold Crowell MD - 11/16/2024 2:30 PM EST Subjective Patient ID: Cece Maurer is a 59 y.o. female who presents for Follow-up. Patient comes for a follow-up visit. She does not feel well. She complains of generalized arthralgias. Low back pain. On and off ankle pain and swelling. She has a past medical history of untreated rheumatoid arthritis. She follows regularly with rheumatology but unfortunately she has not been ableto tolerate disease modifying therapy. She was most recently prescribed Enbrel that was not coveredby her insurance. Today she also tells me that she is having mild sore throat, bilateral ear discomfort, and mild dysuria for the past 3 to 4 days. She denies any cough, wheezing, fevers or chills, sick contacts. Review of Systems Constitutional: Positive for fatigue. Negative for chills and fever. HENT: Positive for sore throat. Respiratory: Negative for cough, shortness of breath and wheezing. Cardiovascular: Negative for chest pain, palpitations and leg swelling. Gastrointestinal: Negative for abdominal pain. Genitourinary: Positive for dysuria. Musculoskeletal: Positive for arthralgias and back pain. Visit Vitals BP (!) 155/91 (BP Location: Left arm, Patient Position: Sitting, BP Cuff Size: Adult) Pulse 78 Temp 98.2 ??F (36.8 ??C) (Oral) Resp 20 Ht 4' 11 (1.499 m) Wt 147 lb (66.7 kg) SpO2 98% BMI 29.69 kg/m?? Smoking Status Former BSA 1.67 m?? Objective Physical Exam Constitutional: Appearance: Normal appearance. Cardiovascular: Rate and Rhythm: Normal rate and regular rhythm. Heart sounds: No murmur heard. No gallop. Pulmonary: Effort: Pulmonary effort is normal. No respiratory distress. Breath sounds: Normal breath sounds. No wheezing. Musculoskeletal: Right lower leg: No edema. Left lower leg: No edema. Neurological: Mental Status: She is alert. Latest Reference Range & Units 11/16/24 15:38 11/16/24 15:39 11/16/24 15:40 Color, UA Yellow Specific [place], UA 1.025 pH, UA 6.0 Ketones, UA Negative Protein, UA Negative Nitrite, UA Negative, None Detected Negative RBC, UA Negative, None Detected Positive ! Clarity, UA Clear Glucose, UA Negative Leukocytes, UA Negative, Rare, Trace Negative Bilirubin UA Negative Urobilinogen, UA 0.2 Influenza A Negative, Indeterminate Negative Influenza B Negative, Indeterminate Negative QC Media Lot # [id number] Rapid COVID Ag Negative Appearance, UA yellow !: Data is abnormal Latest Reference Range & Units 10/06/24 16:00 10/31/24 14:04 Glucose 60 - 115 mg/dL 96 Urea Nitrogen (BUN) 9 - 16 mg/dL 21 (H) Creatinine, Serum 0.5 - 1.4 mg/dL 0.95 Sodium 135 - 145 mmol/L 142 Potassium 3.3 - 5.1 mmol/L 3.7 Chloride 96 - 108 mmol/L 108 Carbon Dioxide 22 - 29 mmol/L 27 Calcium 8.4 - 10.2 mg/dL 9.4 Albumin Level 3.5 - 5.0 g/dL 4.2 Bilirubin, Total 0.0 - 1.0 mg/dL 0.3 AST 5 - 31 U/L 41 (H) ALT 0 - 31 U/L 37 (H) Anion Gap 12 - 20 11 (L) Total Protein 6.5 - 8.0 g/dL 8.5 (H) Red Blood Count 4.20 - 5.50 X10*6/uL 4.42 Hemoglobin 12.0 - 16.0 g/dl 12.2 Hematocrit 37.0 - 47.0 % 37.6 Mean Corpuscular Volume 80.0 - 98.0 fL 85.1 Mean Corpuscular Hemoglobin 27.0 - 33.0 pg 27.6 Mean Corpuscular HGB Conc 31.0 - 35.0 g/dl 32.4 Red Cell Distribution Width 11.0 - 16.0 % 14.9 Platelet Count 160 - 400 X10*3/uL 179 Eosinophils Percent Auto 0 - 4 % 1.6 Lymphocytes Absolute Auto 1.2 - 4.9 X10*3/uL 1.0 (L) Basophils Absolute Auto 0.0 - 0.2 X10*3/uL 0.0 Monocytes Absolute Auto 0.1 - 1.2 X10*3/uL 0.5 Neutrophils Absolute Auto 2.0 - 8.3 x10*3/uL 4.0 Neutrophils Percent Auto 45 - 73 % 71.5 Basophils Percent Auto 0 - 2 % 0.4 Eosinophils Absolute Auto 0.0 - 0.4 X10*3/uL 0.1 Lymphocytes Percent Auto 20 - 40 % 17.9 (L) Monocytes Percent Auto 2 - 11 % 8.2 Imm Gran Abs Auto 0.00 - 0.03 X10*3/uL 0.02 Imm Gran Pct Auto 0.0 - 0.4 % 0.4 Hepatitis B Surface Antigen Negative Negative Hepatitis B Core Antibody Nonreactive Nonreactive ~Hepatitis B Surface Antibody Nonreactive REACTIVE Hepatitis C Antibody Nonreactive Nonreactive Alkaline Phosphatase 39 - 117 U/L 78 Estimated Glomerular Filt Rate >60 Hepatitis A IgM Nonreactive Nonreactive Mean Platelet Volume 9.4 - 12.3 fL 11.4 Negative Control Passed NRBC Abs Auto 0.0 - 0.012 X10*3/uL 0.000 NRBC Pct Auto 0.0 - 0.2 /100WBC 0.0 Positive Control Passed T Spot TB Negative Negative TS PANEL A 1 TS PANEL B 0 White Blood Count 4.8 - 10.8 X10*3/uL 5.5 (H): Data is abnormally high (L): Data is abnormally low Assessment/Plan Diagnoses and all orders for this visit: 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 ([facility]) Comments: I explained to the patient a lot of her symptoms have to do with untreated rheumatoid arthritis. This explains her fatigue, joint pains, occasional ankle swelling. I encouraged her to contact her blow mold technician to discuss disease modifying therapy. I prescribed the patient a short course of Relafen. The patient tells me the regular NSAIDs give her heartburn. She also tells me the Celebrex did nothelp. I refilled tramadol to use as needed for severe pain. She asked me for a prescription for knee sleeves and I agreed. I also suggested topical Voltaren which she refused. Acute sore throat Comments: Rapid test for flu and COVID were negative. Throat exam is unremarkable. I recommended symptomatic treatment with warm water and salt gargles. Orders: - POCT Urinalysis - POCT Rapid Covid-19 BinaxNOW - POCT Rapid Influenza A ASCENCIO ID NOW - POCT Rapid Influenza B ASCENCIO ID NOW Dysuria Comments: Urine dip is negative for UTI. She has trace blood. I suspect symptoms are secondary to atrophic vaginitis but she has a past medical history of breast cancer therefore I did not recommend topical estrogens today. She has been for referral to client services specialist and I agreed. Prediabetes Comments: We discussed results of glucose and hemoglobin A1c. I recommend to avoid sweets and soda. Orders: - POCT Glucose - POCT HGB A1C - POCT Urinalysis - POCT Rapid Covid-19 BinaxNOW - POCT Rapid Influenza A ASCENCIO ID NOW - POCT Rapid Influenza B ASCENCIO ID NOW Essential hypertension Comments: BP is elevated checked twice. She is currently treated with clonidine. I suggested adding diuretic or amlodipine or losartan but she refused. The patient is very sensitive to medications. She described numerous side effects to many of the medications we have tried in the past but she tolerates the clonidine well Other orders - nabumetone (Relafen) 500 MG tablet; Take 1 tablet (500 mg) by mouth 2 times daily for 20 days. documented in this encounter Plan of Treatment Upcoming Encounters Date Type Department Care Team (Late st Contact Info) Description 12/02/2024 8:30 AM EDT Office Visit [facility] ADULT DENTAL [address] [place] [address] Elisabet Greer, DDS [address] [place] [address] 12/09/2024 10:45 AM EDT Office Visit [facility] MEDICINE [address] [place] [address] Dayron Rowell MD [address] [place] [address] 12/27/2024 9:45 AM EDT Office Visit [facility] MEDICINE [address] [place] [address] documented as of this encounter Procedures Procedure Name Priority Date/Time Associated Diagnosis Comments POCT INFLUENZA B (ID NOW RAPID MOLECULAR) Routine 11/16/2024 3:40 PM EST Prediabetes Acute sore throat POCT INFLUENZA A (ID NOW RAPID MOLECULAR) Routine 11/16/2024 3:40 PM EST Prediabetes Acute sore throat POCT RAPID COVID ANTIGEN Routine 11/16/2024 3:39 PM EST Prediabetes Acute sore throat POCT URINALYSIS DIPSTICK Routine 11/16/2024 3:38 PM EST Prediabetes Acute sore throat POCT GLYCATED HEMOGLOBIN, TOTAL Routine 11/16/2024 2:28 PM EST Prediabetes POCT GLUCOSE Routine 11/16/2024 2:28 PM EST Prediabetes documented in this encounter Results * POCT Rapid Influenza B ASCENCIO ID NOW (11/16/2024 3:40 PM EST) Influenza B Negative Negative, Indeterminate [facility] QC Media Lot # [id number] [facility] Lot# Expiration Date 28 [facility] Swab 11/16/2024 3:40 PM EST Reynold Crowell MD POINT OF CARE TEST ENTER/EDIT OR DERABLES Final Result Performing Organization Address [facility]/ZIP Co de Phone Number [facility] [address] [place] [phone] * POCT Rapid Influenza A ASCENCIO ID NOW (11/16/2024 3:40 PM EST) Pathologist [facility] Influenza A Negative Negative, Indeterminate [facility] QC Media Lot # [id number] [facility] Lot# Expiration Date [facility] Swab 11/16/2024 3:40 PM EST us Reynold Crowell MD POINT OF CARE TEST ENTER/EDIT OR DERABLES Final Result Performing Organization Address City/[facility]/ZIP Co de Phone Number [facility] [address] [place] [phone] * POCT Rapid Covid-19 BinaxNOW (11/16/2024 3:39 PM EST) Pathologist [facility] Rapid COVID Ag Negative QC Media Lot # [id number] Lot# Expiration Date Nares 11/16/2024 3:39 PM EST us Reynold Crowell MD POINT OF CARE TEST ENTER/EDIT OR DERABLES Final Result * (ABNORMAL) POCT Urinalysis (11/16/2024 3:38 PM EST) Color, UA Yellow Clarity, UA Clear Glucose, UA Negative Bilirubin, UA Negative Ketones, UA Negative Spec Grav, UA 1.025 Blood, UA Positive(A) Negative, None Detected Comment:trace-intact pH, UA 6.0 Protein, UA Negative Urobilinogen, UA 0.2 Leukocytes, UA Negative Negative, Rare, Trace Nitrite, UA Negative Negative, None Detected Appearance, UA yellow QC Media Lot # [id number] Lot# Expiration Date Urine 11/16/2024 3:38 PM EST Result [facility] us Reynold Crowell MD POINT OF CARE TEST ENTER/EDIT OR DERABLES Final Result * (ABNORMAL) POCT HGB A1C (11/16/2024 2:28 PM EST) Hemoglobin A1C 6.2(A) 4.0 - 6.0 % Media Lot # [id number] Lot# Expiration Date Blood 11/16/2024 2:28 PM EST Result Jaime Crowell MD POINT OF CARE TEST ENTER/EDIT OR DERABLES Final Result * POCT Glucose (11/16/2024 2:28 PM EST) Glucose Blood, POC 90 60 - 200 mg/dL QC Media Lot # [id number] Lot# Expiration Date Blood Capillary blood specimen / Unknown 11/16/2024 2:28 PM EST Result [facility] Reynold Crowell MD POINT OF CARE TEST ENTER/EDIT OR DERABLES Final Result documented in this encounter Visit Diagnoses Diagnosis 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 (CMS/HCC)- Primary Acute sore throat Dysuria Prediabetes Other abnormal glucose Essential hypertension Unspecified essential hypertension documented in this encounter Additional Health Concerns Assessment Noted Time PHQ-9 Depression Total Score: 7 12/11/19 24 11:10 AM EDT documented as of this encounter Care Teams Piccolo Mechanic Relationship Specialty Start Date End Date Reynold Crowell MD [address] [place] [address] PCP - General Family Medicine 12/26/15 documented as of this encounter
--- OUTSIDE RECORDS SUMMARY | 2024-11-23 19:28 | XMS_ITS | Encounter Summary ---
Author Organization [employer] Address [address] [place] [address] 7 [place] [address] Care Team Providers Care Program Director/Music Director Name Role Phone Name, Reynold FAUST Primary Care Provider [phone] Encounter Details Date Type Department Care Team (Latest Contact Info) Description 10/10/2020 Abstract [facility] CONVERSIONS Dental, Provider, DDS Social [...] Description 12/02/2024 8:30 AM EDT Office Visit [facility] ADULT DENTAL [address] [place] [address] Elisabet Greer DDS [address] [place] [address] 12/09/2024 10:45 AM EDT Office Visit [facility] MEDICINE [address] [place] [address] Dayron Rowell MD [address] [place] [address] 12/27/2024 9:45 AM EDT [facility] Visit [facility] [address] [place] [address] [place] [address] documented as of this encounter Visit Diagnoses Not on filedocumented in this encounter Care Teams Program Director/Music Director Relationship Specialty Start Date End Date Name, MD Reynold [address] [place] [address] PCP - General Family Medicine 12/26/15 documented as of this encounter
--- OUTSIDE RECORDS SUMMARY | 2024-11-23 19:28 | XMS_ITS | Encounter Summary ---
Author Organization [employer] Address [address] [place] [address] 7 [place] [address] Care Team Providers Care Electronic Device Repairer Name Role Phone Name, Reynold FAUST Primary Care Provider [phone] Reason for Visit * Reason Comments Med Refill Encounter Details Date Type Department Care Team (Late st Contact Info) Description 04/06/2023 Refill [facility] MEDICINE [address] [place] [address] Name, MD Reynold [address] [place] [address] Chronic cough Social History Tobacco Use Types [...] Description 12/02/2024 8:30 AM EDT Office Visit [facility] ADULT DENTAL [address] [place] [address] Elisabet Greer DDS [address] [place] [address] 12/09/2024 10:45 AM EDT Office Visit [facility] MEDICINE [address] [place] [address] Dayron Rowell MD [address] [place] [address] 12/27/2024 9:45 AM EDT Office Visit [facility] MEDICINE [address] [place] [address] documented as of this encounter Visit Diagnoses Diagnosis Chronic cough Cough documented in this encounter Care Teams Electronic Device Repairer Relationship Specialty Start Date End Date Name, MD Reynold [address] [place] [address] PCP - General Family Medicine 12/26/15 documented as of this encounter
--- OUTSIDE RECORDS SUMMARY | 2024-11-23 19:28 | XMS_ITS | Encounter Summary ---
Author Organization [employer] Address 75 [facility] 7 [place] [address] Care Team Providers Care Actuarial Internship Name Role Phone Name, Reynold FAUST Primary Care Provider Reason for Visit * Reason Onset Date Comments [employer] 11/21/2024 B oost, very vanilla 8oz (/cs) Encounter Details Date Type Department Care Team (Late st Contact Info) Description 11/21/2024 Telephone [facility] MEDICINE [address] [place], [place] [phone] Name, MD Reynold [address] [place], [place] [phone] [employer] (Boost, very vanilla 8oz (24/cs)) Social History Tobacco Use Types Packs/Day Years [...] Encounter - Gaviota Morgan [place] - 11/21/2024 1:49 PM EST Received medical necessity form for sylvain Maciasoz (/). Form has been filled out and placed on PCP desk for signature. documented in this encounter Plan of Treatment Upcoming Encounters Date Type Department Care Team (Late st Contact Info) Description 12/02/2024 8:30 AM EDT Office Visit [facility] ADULT DENTAL [address] [place] [address] Elisabet Greer DDS [address] [place] [address] 12/09/2024 10:45 AM EDT Office Visit [facility] MEDICINE [address] [place] [address] Dayron Rowell MD [address] [place] [address] 12/27/2024 9:45 AM EDT Office Visit [facility] MEDICINE [address] [place] [address] documented as of this encounter Visit Diagnoses Not on filedocumented in this encounter Additional Health Concerns Assessment Noted Time PHQ-9 Depression Total Score: 7 12/11/19 24 11:10 AM EDT documented as of this encounter Care Teams Actuarial Internship Relationship Specialty Start Date End Date Name, MD Reynold [address] [place] [address] PCP - General Family Medicine 12/26/15 documented as of this encounter
--- OUTSIDE RECORDS SUMMARY | 2024-11-23 19:28 | XMS_ITS | Encounter Summary ---
Author Organization [employer] Address [address] [place] [address] 7 [place] [address] Care Team Providers Care Lathe Set Up Person Name Role Phone Name, Reynold FAUST Primary Care Provider [phone] Encounter Details Date Type Department Care Team (Late st Contact Info) Description 10/07/2023 Abstract [facility] MEDICINE [address] [place] [phone] Name, MD Reynold [address] [place] [address] Social History Tobacco Use Types Packs/Day Years [...] Description 12/02/2024 8:30 AM EDT Office Visit [facility] ADULT DENTAL [address] [place] [address] Elisabet Greer DDS [address] [place] [address] 12/09/2024 10:45 AM EDT Office Visit [facility] MEDICINE [address] [place] [address] Dayron Rowell MD [address] [place] [address] 12/27/2024 9:45 AM EDT Office Visit [facility] MEDICINE [address] [place] [address] documented as of this encounter Visit Diagnoses Not on filedocumented in this encounter Care Teams Lathe Set Up Person Relationship Specialty Start Date End Date Name, MD Reynold [address] [place] [address] PCP - General Family Medicine 12/26/15 documented as of this encounter
--- OUTSIDE RECORDS SUMMARY | 2024-11-23 19:28 | XMS_ITS | Encounter Summary ---
Author Organization [employer] Address 75 [facility] 7t [place] [address] Care Team Providers Care Distribution Specialist Name Role Phone Name, Reynold FAUST Primary Care Provider [phone] Reason for Visit * Reason Comments Med Refill Encounter Details Date Type Department Care Team ([facility] st Contact Info) Description 11/16/2024 Refill [facility] MEDICINE [address] [place] [address] Name, MD Reynold [address] [place] [address] Chronic pain syndrome Social History Tobacco Use [...] 12/02/2024 8:30 AM EDT Office Visit [facility] ADULT DENTAL [address] [place] [address] Elisabet Greer DDS [address] [place] [address] 12/09/2024 10:45 AM EDT Office Visit [facility] MEDICINE [address] [place] [address] Dayron Rowell MD [address] [place] [address] 12/27/2024 9:45 AM EDT Office Visit [facility] MEDICINE [address] [place] [address] documented as of this encounter Visit Diagnoses Diagnosis Chronic pain syndrome documented in this encounter Additional Health Concerns Assessment Noted Time PHQ-9 Depression Total Score: 7 12/11/19 24 11:10 AM EDT documented as of this encounter Care Teams Distribution Specialist Relationship Specialty Start Date End Date Name, MD Reynold [address] [place] [address] PCP - General Family Medicine 12/26/15 documented as of this encounter
--- OUTSIDE RECORDS SUMMARY | 2024-11-23 19:28 | XMS_ITS | Encounter Summary ---
Author Organization [employer] Address 75 [facility] 7t [place] [address] Care Team Providers Care Real Estate Valuer Name Role Phone Name, Reynold FAUST Primary Care Provider [phone] Reason for Visit * Reason Onset Date Comments New Med Request 2024 Encounter Details Date Type Department Care Team ([facility] st Contact Info) Description 2024 Telephone [facility] MEDICINE [address] [place] [address] Name, MD Reynold [address] [place] [address] New Med Request Social History Tobacco Use [...] T/C to pt. For below message through [place] interpreters id - [id number], pt. Verbally greed and understood. * Telephone [...] Description 12/02/2024 8:30 AM EDT Office Visit [facility] ADULT DENTAL [address] [place] [address] Elisabet Greer DDS [address] [place] [address] 12/09/2024 10:45 AM EDT Office Visit [facility] MEDICINE [address] [place] [address] Dayron Rowell MD [address] [place] [address] 12/27/2024 9:45 AM EDT Office Visit [facility] MEDICINE [address] [place] [address] documented as of this encounter Visit Diagnoses Not on filedocumented in this encounter Additional Health Concerns Assessment Noted Time PHQ-9 Depression Total Score: 7 12/11/19 24 11:10 AM EDT documented as of this encounter Care Teams Real Estate Valuer Relationship Specialty Start Date End Date Name, MD Reynold [address] [place] [address] PCP - General Family Medicine 12/26/15 documented as of this encounter
--- OUTSIDE RECORDS SUMMARY | 2024-11-23 19:28 | XMS_ITS | Encounter Summary ---
Author Organization [employer] Address [address] [facility] 7t [place] [address] Care Team Providers Care Hog Raiser Name Role Phone Name, Reynold FAUST Primary Care Provider [phone] Reason for Visit * Reason Comments Med Refill Encounter Details Date Type Department Care Team ([facility] st Contact Info) Description 06/11/2024 Refill [facility] MEDICINE [address] [place] [address] Name, MD Reynold [address] [place] [address] Essential hypertension Social History Tobacco Use Types [...] 12/02/2024 8:30 AM EDT Office Visit [facility] ADULT DENTAL [address] [place] [address] Elisabet Greer DDS [address] [place] [address] 12/09/2024 10:45 AM EDT Office Visit [facility] MEDICINE [address] [place] [address] Dayron [place] MD [address] [place] [address] 12/27/2024 9:45 AM EDT Office Visit [facility] MEDICINE [address] [place] [address] documented as of this encounter Visit Diagnoses Diagnosis Essential hypertension Unspecified essential hypertension documented in this encounter Additional Health Concerns Assessment Noted Time PHQ-9 Depression Total Score: 7 12/11/19 24 11:10 AM EDT documented as of this encounter Care Teams Hog Raiser Relationship Specialty Start Date End Date Name, MD Reynold [address] [place] [address] PCP - General Family Medicine 12/26/15 documented as of this encounter
--- OUTSIDE RECORDS SUMMARY | 2024-11-23 19:28 | XMS_ITS | Encounter Summary ---
Author Organization [employer] Address [address] [facility] 7t [place] [address] Care Team Providers Care Taxation Accountant Name Role Phone Name, Reynold FAUST Primary Care Provider [phone] Reason for Visit * Reason Comments Med Refill Encounter Details Date Type Department Care Team ([facility] st Contact Info) Description 02/28/2024 Refill [facility] MEDICINE [address] [place] [address] Name, MD Reynold [address] [place] [address] Chronic cough Social History Tobacco Use Types [...] Description 12/02/2024 8:30 AM EDT Office Visit [facility] ADULT DENTAL [address] [place] [address] Elisabet Greer DDS [address] [place] [address] 12/09/2024 10:45 AM EDT Office Visit [facility] MEDICINE [address] [place] [address] Dayron [place] MD [address] [place] [address] 12/27/2024 9:45 AM EDT Office Visit [facility] MEDICINE [address] [place] [address] documented as of this encounter Visit Diagnoses Diagnosis Chronic cough Cough documented in this encounter Additional Health Concerns Assessment Noted Time PHQ-9 Depression Total Score: 7 12/11/19 24 11:10 AM EDT documented as of this encounter Care Teams Taxation Accountant Relationship Specialty Start Date End Date Name, MD Reynold [address] [place] [address] PCP - General Family Medicine 12/26/15 documented as of this encounter
--- OUTSIDE RECORDS SUMMARY | 2024-11-23 19:28 | XMS_ITS | Encounter Summary ---
Author Organization [employer] Address [address] [facility] 7t [place] [address] Care Team Providers Care Multi Spindle Operator Name Role Phone Name, Reynold FAUST Primary Care Provider [phone] Reason for Visit * Reason Onset Date Comments Nurse Triage 08/16/2024 Encounter Details Date Type Department Care Team ([facility] st Contact Info) Description 08/16/2024 Telephone [facility] MEDICINE [address] [place] [address] Name, MD Reynold [address] [place] [address] Nurse Triage Social History Tobacco Use Types [...] transportation but, will call to come to [facility] for Thursday evening. Pt agrees with [...] [facility] ADULT DENTAL [address] [place] [address] Elisabet Greer DDS [address] [place] [address] 12/09/2024 10:45 AM EDT Office Visit [facility] MEDICINE [address] [place] [address] Dayron [place] MD [address] [place] [address] 12/27/2024 9:45 AM EDT Office Visit [facility] MEDICINE [address] [place] [address] documented as of this encounter Visit Diagnoses Not on filedocumented in this encounter Additional Health Concerns Assessment Noted Time PHQ-9 Depression Total Score: 7 12/11/19 24 11:10 AM EDT documented as of this encounter Care Teams Multi Spindle Operator Relationship Specialty Start Date End Date Name, MD Reynold [address] [place] [address] PCP - General Family Medicine 12/26/15 documented as of this encounter
--- OUTSIDE RECORDS SUMMARY | 2024-11-23 19:28 | XMS_ITS | Encounter Summary ---
Author Organization [employer] Address [address] [place] [address] 7 [place] [address] Care Team Providers Care Pharmacy Benefits Coordinator Name Role Phone Name, Reynold FAUST Primary Care Provider [phone] Reason for Visit * Reason Comments Med Refill Encounter Details Date Type Department Care Team (Late st Contact Info) Description 04/02/2023 Refill [facility] MEDICINE [address] [place] [address] Name, MD Reynold [address] [place] [address] Chronic cough Social History Tobacco Use Types [...] [facility] [address] [place] [address] Elisabet Greer DDS [address] [place] [address] 12/09/2024 10:45 AM EDT Office Visit [facility] MEDICINE [address] [place] [address] Dayron [place] MD 230 [place] [address] 12/27/2024 9:45 AM EDT Office Visit [facility] MEDICINE [address] [place] [address] documented as of this encounter Visit Diagnoses Diagnosis Chronic cough Cough documented in this encounter Care Teams Pharmacy Benefits Coordinator Relationship Specialty Start Date End Date Name, MD Reynold [address] [place] [address] PCP - General Family Medicine 12/26/15 documented as of this encounter
--- OUTSIDE RECORDS SUMMARY | 2024-11-23 19:28 | XMS_ITS | Encounter Summary ---
Author Organization [employer] Address [address] [place] [address] 7 [place] [address] Care Team Providers Care Materials Management Clerk Name Role Phone Name, Reynold FAUST Primary Care Provider [phone] Reason for Visit * Reason Comments Med Refill Encounter Details Date Type Department Care Team (Late st Contact Info) Description 03/13/2023 Refill [facility] MEDICINE [address] [place] [address] Name, MD Reynold [address] [place] [address] Chronic cough Social History Tobacco Use Types [...] 8:30 AM EDT Office Visit [facility] ADULT DENTAL [address] [place] [address] Elisabet Greer DDS [address] [place] [address] 12/09/2024 10:45 AM EDT Office Visit [facility] MEDICINE [address] [place] [address] Dayron [place] MD [address] [place] [address] 12/27/2024 9:45 AM EDT Office Visit [facility] MEDICINE [address] [place] [address] documented as of this encounter Visit Diagnoses Diagnosis Chronic cough Cough documented in this encounter Care Teams Materials Management Clerk Relationship Specialty Start Date End Date Name, MD Reynold [address] [place] [address] PCP - General Family Medicine 12/26/15 documented as of this encounter
--- OUTSIDE RECORDS SUMMARY | 2024-11-23 19:28 | XMS_ITS | Encounter Summary ---
Author Organization [employer] Address [address] [place] [address] 7 [place] [address] Care Team Providers Care Cad Detailer Name Role Phone Name, Reynold FAUST Primary Care Provider [phone] Reason for Referral * Consultation (Urgent) - Authorized Specialty Diagnoses / Procedures Referred By Contac t Referred To Contact Family Medicine Diagnoses Vulvar lesion Janae Maldonado CNM [address] [place] [address] Phone: tel: fax: Referral ID Status Reason Start Date Expiration Date Visits Requested Visits Authorized [id number] Authorized Specialty Services Required 11/23/2024 11/23/2025 1 1 * Imaging (Urgent) - Authorized Specialty Diagnoses / Procedures Referred By Contac t Referred To Contact Radiology Diagnoses Postmenopausal bleeding Procedures Us Pelvis complete Janae Maldonado CNM [address] [place] [address] Phone: tel: fax: [address] Phone: tel: fax: Referral ID Status Reason Start Date Expiration Date V isits Requested Visits Authorized [id number] Authorized 11/23/2024 11/23/2025 1 1 * Imaging (Urgent) - Authorized Specialty Diagnoses / Procedures Referred By Dara gutierrez Referred To Contact Radiology Diagnoses Postmenopausal bleeding Procedures US Pelvis Transvaginal Janae Maldonado CNM [address] [place] [address] Phone: tel: fax: [facility] [address] [place] [address] Phone: tel: fax: Referral ID Status Reason Start Date Expiration Date V isits Requested Visits Authorized [id number] Authorized 11/23/2024 11/23/2025 1 1 Reason for Visit * Reason Comments Gynecologic Exam Encounter Details Date Type Department Care Team ([facility] st Contact Info) Description 11/23/2024 9:00 AM EST Office Visit [facility] MEDICINE [address] [place] [address] Janae Maldonado CNM [address] [place] [address] Dysuria (Primary Dx); Routine cervical smear; Postmenopausal bleeding; Vulvar lesion Social History Tobacco Use Types Packs/Day Years Used Date Smoking Tobacco: Former Smokeless Tobacco: Never Tobacco Cessation:Counseling Given: Not [...] Patient Health Questionnaire-2 Score 2 12/11/2023 Comments No Sex and Gender Information Value Date Recorded Sex Assigned at Female 07/21/2022 10:14 AM EDT Legal Sex Female 10:14 AM EDT Gender Identity Female 07/21/2022 10:14 AM EDT Sexual Orientation Straight 07/21/2022 10 :14 AM EDT documented as of this encounter Last Filed Vital Signs Vital Sign Reading Time Taken Comments Blood Pressure 178/92 11/23/2024 8:55 AM EST Pulse 78 11/23/2024 8:55 AM EST Temperature 36.4 ??C (97.5 ??F) 11/23/2024 8:55 AM ES T Respiratory Rate 20 11/23/2024 8:55 AM EST Oxygen Saturation 99% 11/23/2024 8:55 AM EST Inhaled Oxygen Concentration - - Weight 67 kg (147 lb 12.8 oz) 11/23/2024 8:55 AM EST Height 149.9 cm (4' 11 ) 11/23/2024 8:55 AM EST Body Mass Index 29.85 11/23/2024 8:55 AM EST documented in this encounter Progress Notes * Janae Maldonado CNM - 11/23/2024 9:00 AM EST Subjective Patient ID: Cece Maurer is a 59 y.o. 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 Pap NIL/HPV pos, neg 16/18/45. Pap NIL/HPV neg 09/2019, NIL/HPV positive 2013. Due for cotesting if not done elsewhere. She agrees to pap today. Notes urinary urgency, stress urinary incontinence and burning with urination as well as nocturia. Noted three episodes of either blood in urine or vaginal bleeding. No vaginal itching/dryness. Not sexually active in 18 years. Also notes uncomfortable bump on left labia for about a month. History of bilateral DCIS in 2019, s/p surgery and radiation. Had side effects from SERM/anti-estrogens. Known osteoporosis, followed by rheumalogist. Rx'd Boniva but not currently taking. Mammogram BIRADS 2, cat c 10/2024. Followed by Dr. Santoyo and Armand. Patient seen in conjunction with MIRIAN Bowden student. I was present for and confirmed all pertinent elements in the history, exam, assessment of the patient, and the plan of care, and agree with all findings. Review of Systems Constitutional: Negative for fever. Gastrointestinal: Negative for abdominal pain. Genitourinary: Positive for dysuria, flank pain, frequency, hematuria and urgency. Negative for vaginal discharge and vaginal pain. Musculoskeletal: Positive for back pain. Objective BP (!) 178/92 (BP Location: Left arm, Patient Position: Sitting, BP Cuff Size: Large adult) Pulse78 Temp 97.5 ??F (36.4 ??C) (Temporal) Resp 20 Ht 4' 11 (1.499 m) Wt 147 lb 12.8 oz (67 kg) SpO2 99% BMI 29.85 kg/m?? Physical Exam Exam conducted with a fisher sponge hooking present (Janae Maldonado CNM). Constitutional: Appearance: Normal appearance. Abdominal: Tenderness: There is no right CVA tenderness or left CVA tenderness. Genitourinary: Labia: Right: No rash, tenderness, lesion or injury. Left: Lesion present. No rash, tenderness or injury. Vagina: No signs of injury and foreign body. No vaginal discharge, erythema, tenderness, bleeding, lesions or prolapsed vaginal quezada. Cervix: Friability present. No cervical motion tenderness, discharge, lesion, erythema, cervical bleeding or eversion. Uterus: Normal. Not enlarged and not tender. Adnexa: Right: No mass, tenderness or fullness. Left: No mass, tenderness or fullness. Comments: Single raised lesion approx 2mm on left outer labia, upper aspect, suggestive of molluscum. Mild cystocele with Valsalva, fair tone with Kegels Atrophic changes vaginally. Neurological: Mental Status: She is alert. Psychiatric: Mood and Affect: Mood normal. Behavior: Behavior normal. Assessment/Plan Diagnoses and all orders for this visit: Dysuria - POCT urinalysis dipstick manually resulted - Culture, Urine, Routine UA after pelvic exam, trace blood noted. May be due to friable cervix. Will send urine culture and treat positive results. If negative, repeat UA and consider urology referral if no worrisome findings on ultrasound. Consider trial of vaginal estrogen in consultation with oncology if no UTI and ultrasound negative. Routine cervical smear - Pap Smear Cotest today. Repeat 1 year if normal/HPV negative. Per recent rheumatology note, may be starting Enbrel. For yearly paps if so. Postmenopausal bleeding - US Pelvis Transvaginal; Future - Us Pelvis complete; Future Based on symptoms, bleeding more suggestive of vaginal bleeding than true hematuria. She reports history of either fibroid or ovarian cyst. Will get ultrasound. If EM > 3mm, will refer to LINUX SYSTEMS ENGINEER for further evaluation. Vulvar lesion - Referral to [facility] Derm Skin Adult; Future Suggestive of molluscum, but not sexually active in 18 years, not care-giving for young children. Will send to derm for evaluation. documented in this encounter Plan of Treatment Upcoming Encounters Date Type Department Care Team (Late st Contact Info) Description 12/02/2024 8:30 AM EDT Office Visit [facility] ADULT DENTAL [address] [place] [address] Solorzano-Arzate, Elisabet, DDS [address] [place] [address] 12/09/2024 10:45 AM EDT Office Visit [facility] MEDICINE [address] [place] [address] Dayron [place] MD [address] [place] [address] 12/27/2024 9:45 AM EDT Office Visit [facility] MEDICINE [address] [place] [address] Scheduled Orders Name Type Priority Associated Diagnoses Order Schedule Culture, Urine, Routine Microbiology Routine Dysuria Ordered: 11/23/2024 Pap Smear Pathology and Cytology Routine Routine cervical smear Ordered: 11/23/2024 US Pelvis Transvaginal Imaging Urgent Postmenopausal bleeding Expected: 11/23/2024, Expires: 11/23/2025 Us Pelvis complete Imaging Urgent Postmenopausal bleeding Expected: 11/23/2024, Expires: 11/23/2025 Scheduled Referrals Name Type Priority Associated Diagnoses Orde r Schedule Referral to [facility] Derm Skin Adult Outpatient Referral Urgent Vulvar lesion Expected: 11/23/2024 (Approximate), Expires: 11/23/2025 documented as of this encounter Procedures Procedure Name Priority Date/Time Associated Diagnosis Comments POCT URINALYSIS DIPSTICK Routine 11/23/2024 9:23 AM EST Dysuria documented in this encounter Results * (ABNORMAL) POCT urinalysis dipstick manually resulted (11/23/2024 9:23 AM EST) Color, UA Yellow Clarity, UA Clear Glucose, UA Negative Bilirubin, UA Negative Ketones, UA Negative Spec Grav, UA 1.030 Blood, UA Positive(A) Negative, None Detected pH, UA 5.5 Protein, UA Negative Urobilinogen, UA 0.2 Leukocytes, UA Negative Negative, Rare, Trace Nitrite, UA Negative Negative, None Detected Appearance, UA clear QC Media Lot # [id number] Urine 11/23/2024 9:23 AM EST Janae WILLIS POINT OF CARE TEST ENTER/ EDIT ORDERABLES Final Result documented in this encounter Visit Diagnoses Diagnosis Dysuria- Primary Routine cervical smear Screening for malignant neoplasm of the cervix Postmenopausal bleeding Vulvar lesion Other specified noninflammatory disorder of vulva and perineum documented in this encounter Additional Health Concerns Assessment Noted Time PHQ-9 Depression Total Score: 7 12/11/19 24 11:10 AM EDT documented as of this encounter Care Teams Cad Detailer Relationship Specialty Start Date End Date Name, MD Reynold [address] [place] [address] PCP - General Family Medicine 12/26/15 documented as of this encounter
--- OUTSIDE RECORDS SUMMARY | 2024-11-23 19:28 | XMS_ITS | Encounter Summary ---
Author Organization [employer] Address [address] [facility] 7t [place] [address] Care Team Providers Care Store Warehouse Associate Name Role Phone Name, Reynold FAUST Primary Care Provider [phone] Reason for Visit * Reason Onset Date Comments Med Refill Reschedule IRRIGATIONIST DESIGNER RV she cancelled 02/02/23 06/05/20 Encounter Details Date Type Department Care Team (Late st Contact Info) Description 06/05/2023 Refill [facility] MED & PEDS [address] [place] [address] Name, MD Reynold [address] [place] [address] Chronic pain syndrome Social History Tobacco Use [...] 06/08/2023 10:55 AM EDT Pt was cancelled IRRIGATIONIST DESIGNER RV on 02/02/23 and has not rescheduled. TC to pt, no answer. L/M requesting she call to reschedule her IRRIGATIONIST DESIGNER RV she cancelled. documented in this encounter Plan of Treatment Upcoming Encounters Date Type Department Care Team (Late st Contact Info) Description 12/02/2024 8:30 AM EDT Office Visit [facility] ADULT DENTAL [address] [place] [address] Elisabet Greer DDS [address] [place] [address] 12/09/2024 10:45 AM EDT Office Visit [facility] MEDICINE [address] [place] [address] Dayron [place] MD [address] [place] [address] 12/27/2024 9:45 AM EDT Office Visit [facility] MEDICINE [address] [place] [address] documented as of this encounter Visit Diagnoses Diagnosis Chronic pain syndrome documented in this encounter Care Teams Store Warehouse Associate Relationship Specialty Start Date End Date Name, MD Reynold [address] [place] [address] PCP - General Family Medicine 12/26/15 documented as of this encounter
--- OUTSIDE RECORDS SUMMARY | 2024-11-23 19:28 | XMS_ITS | Clinical Summary ---
Author Organization [employer] Address [address] [facility] [address] [place] [address] Care Team Providers Care Classroom Instructor Name Role Phone Name, Reynold FAUST Primary Care Provider [phone] Allergies Active Allergy Reactions Criticality Noted Date [...] Active Ventolin HFA 108 (90 Base) MCG/ACT inhalerIndicati ons:Chronic cough INHALE 2 PUFFS EVERY 6 HOURS IF NEEDED FOR WHEEZING. 18 g 2 12/28/19 24 Active calcitriol (Rocaltrol) 0.25 MCG capsule Take 0.25 mcg by mouth Once per day. 12/29/19 24 Active nystatin (Mycostatin) cream Apply 1 Application. topically 2 times daily. 12/03/19 24 Active cloNIDine (Catapres) 0.2 MG tabletIndicatio ns:Essential hypertension TAKE 1 TABLET BY MOUTH EVERY DAY 90 tablet 1 09/06/20 24 Active hydrocortisone 1 % creamIndication s:Rash APPLY TO AFFECTED AREA TWICE A DAY 56 g 3 09/27/19 25 Active traMADol (Ultram) 50 MG tabletIndicatio ns:Chronic pain syndrome TAKE 1 TABLET BY MOUTH IN THE MORNING, AT NOON AND AT BEDTIME IF NEEDED FOR SEVERE PAIN 84 tablet 11/17/19 25 025 Active nabumetone (Relafen) 500 MG tablet Take 1 tablet (500 mg) by mouth 2 times daily for 20 days. 40 tablet 11/16/19 25 025 Active nortriptyline (Pamelor) 10 MG capsule Take 10 mg by mouth at bedtime. 01/18/20 24 025 Discontinued celecoxib (CeleBREX) 200 MG capsule TAKE 1 CAPSULE BY MOUTH EVERY DAY 30 capsule 08/22/20 24 025 Discontinued(In effective) cloNIDine (Catapres) 0.1 MG tablet TAKE 1 TAB BY MOUTH IN THE MORNING AND 2 TABLETS AT BEDTIME 270 tablet 10/19/19 25 025 Discontinued( erapy completed) traMADol (Ultram) 50 MG tabletIndicatio ns:Chronic pain syndrome TAKE 1 TABLET BY MOUTH IN THE MORNING, AT NOON AND AT BEDTIME IF NEEDED FOR SEVERE PAIN 84 tablet 10/21/19 25 025 Discontinued Active Problems Problem Noted Date Diagnosed Date [facility] (current) use of opiate analgesic 07/22 Overview (11/01/2024): Medication: Tramadol 50mg TID PRN Indication: OA right knee, seropositive RA 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 Agreement renewed. 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 11/02/2019 12/11/2023 Ductal carcinoma in situ (DC IS) of left breast 11/02/2019 12/11/2023 Nausea and vomiting 07/13/2017 12/11/19 Hidradenitis 07/10/2016 12/11/2023 Backache 03/04/2012 12/11/2023 Acute gastritis 2012 05/31/2024 Encounters Date Type Department Care Team Description 11/23/2024 9:00 AM EST Office Visit [facility] [address] [place] [phone] Janae Maldonado CNM Dysuria (Primary Dx); Routine cervical smear; Postmenopausal bleeding; Vulvar lesion 11/23/2024 Travel 11/21/2024 Telephone [facility] [address] [place] [address] NameReynold MD [employer] (Boost, very vanilla 8oz ()) 11/18/2024 Travel 11/17/[address] [address] NameReynold MD Durable Medical Equipment (Knee sleeves) 11/16/2024 2:30 PM EST Office Visit [address] [address] Reynold Crowell MD 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 (CMS/HCC) (Primary Dx); Acute sore throat; Dysuria; Prediabetes; Essential hypertension 11/16/2024 Travel 11/16/[address] [address] Reynold Crowell MD Chronic pain syndrome 11/12/2024 Travel 11/11/2024 1:30 PM EST Office Visit [facility] [address] [place] [phone] Solorzano-Arzate, Elisabet, DDS Poorly fitting dentures (Primary Dx) 11/09/2024 Travel 11/04/2024 Telephone [facility] [place] [address] Solorzano-Arzate, Elisabet, DDS partial adjustment made elsewhere 11/01/2024 9:45 AM EST Clinical Support [facility] [address] [place] [address] Kristen Williamson, TOOL ROOM MACHINIST Primary osteoarthritis of right knee (Primary Dx); [facility] (current) use of opiate analgesic; Rheumatoid arthritis involving multiple sites, unspecified whether rheumatoid factor present ([facility]) 11/01/2024 Telephone [facility] [place] [address] Leeanna Paulino RN SOFTWARE TOOLS BUILD ENGINEER Agreement signed today 11/01/2024 Travel 10/31/2024 Orders Only GENERIC EXTERNAL DATA DEPARTMENT Provider, Generic External Data 10/19/2024 Refill [facility] [address] [place] [address] Reynold Crowell MD Chronic pain syndrome 10/19/2024 Refill [facility] [address] [place] [address] Reynold Crowell MD 10/06/2024 Orders Only GENERIC EXTERNAL DATA DEPARTMENT Provider, [facility] External Data 10/06/2024 Telephone [facility] [place] [address] Reynold Crowell MD Appointment Request 09/27/2024 Refill [facility] [address] [place], [place] [phone] Reynold Crowell MD Rash 09/23/2024 Refill [facility] [address] [place] [address] Reynold Crowell MD Chronic pain syndrome 09/13/2024 Telephone [facility] [address] [place] [phone] Tommy Malave [place] feb recalls 09/06/2024 Orders Only GENERIC EXTERNAL DATA DEPARTMENT Provider, Generic External Data 09/03/2024 Refill [facility] [address] [place] [address] Reynold Crowell MD Essential hypertension 08/25/2024 Refill [facility] [address] [place] [address] Reynold Crowell MD Chronic pain syndrome from Last 3 Months Immunizations Name Administration Dates Next Due Hep A, Adult 07/29/2017 Hep B, adult 07/29/2017 MMR 11/04/2000 Family History Medical History Relation Name Comments Ovarian cancer Mother's Sister Relation Name Status Comments Mother's Sister Social History Tobacco Use Types Packs/Day Years [...] Mass Index 29.85 11/23/2024 8:55 AM EST Plan of Treatment Upcoming Encounters Date Type Department Care Team (Late st Contact Info) Description 12/02/2024 8:30 AM EDT Office Visit [facility] [address] [place] [address] Elisabet Greer DDS [address] [place] [address] 12/09/2024 10:45 AM EDT Office Visit [facility] [address] [place] [phone] Dayron Rowell MD [address] [place] [address] 12/27/2024 9:45 AM EDT Office Visit [facility] [address] [place] [address] Health Maintenance Due Date Last Done Comments [...] series) 01/26/2018 07/29/2017 Dental Prophylaxis 04/10/2021 10/10/2020 Cervical Cancer Screening 07/30/2023 HPV/Cotest 07/30/2023 07/30/2022, 11/0 05/2022, 10/19/2019 Pap Smear 07/30/2023 07/30/2022 COVID-19 Vaccine ( season) 2024 Influenza Vaccine (#1) 2024 Dental Oral Exam 06/03/2024 12/01/2023, , 07/06/2019 Dental X-Ray: Bitewings 12/01/2024 12/01/19 24, 10/10/2020, 07/06/2019 Depression Screening 12/10/2024 12/11/2023, 12/11/19 SDOH Screening 12/10/2024 12/11/2023 Alcohol/Substance Use Screening 03/23/2025 03/23/2024 Diabetes: Hemoglobin A1C 11/16/2025 025, 12/12/2023, 11/08/2022 Tobacco Screening 11/23/2025 11/23/2024 Mammogram 11/10/2026 11/10/2024, 03/22, 04/13/2024, Additional history exists Dental X-Ray: Full Mouth 12/01/2026 024, 10/29/2023, 07/06/2019 Lipid Panel 05/14/2029 05/14/2024, 11/08/2022 RSV Patients [...] DIPSTICK Routine 11/23/2024 9:23 AM EST Dysuria POCT INFLUENZA B (ID NOW RAPID MOLECULAR) [...] GLUCOSE Routine 11/16/2024 2:28 PM EST Prediabetes CASE PRESENTATION, DETAILED AND EXTENSIVE TREATMENT PLANNING Routine 11/11/2024 1:30 PM EST Poorly fitting dentures LIMITED ORAL EVALUATION - PROBLEM FOCUSED Routine 11/11/2024 1:30 PM EST Poorly fitting dentures BI MAMMOGRAM SCREENING TOMOSYNTHESIS BILATERAL Routine 11/10/2024 1:45 PM EST POCT ANIKA-14 URINE DRUG SCREEN Routine 11/01/2024 [...] Routine 05/14/2024 9:34 AM EDT Essential hypertension INTRAORAL - COMPLETE SERIES OF RADIOGRAPHIC IMAGES [...] Relevant to Health Maintenance Results * (ABNORMAL) POCT urinalysis dipstick manually resulted (11/23/2024 9:23 AM EST) Only the most recent of2 resultswithin the time period is included. Color, UA Yellow Clarity, UA Clear Glucose, UA Negative Bilirubin, UA Negative Ketones, UA Negative Spec Grav, UA 1.030 Blood, UA Positive(A) Negative, None Detected pH, UA 5.5 Protein, UA Negative Urobilinogen, UA 0.2 Leukocytes, UA Negative Negative, Rare, Trace Nitrite, UA Negative Negative, None Detected Appearance, UA clear QC Media Lot # [id number] Urine 11/23/2024 9:23 AM EST Janae Maldonado CNM POINT OF CARE TEST ENTER/ EDIT ORDERABLES Final Result * POCT Rapid Influenza B ASCENCIO ID NOW (11/16/2024 3:40 PM EST) Influenza B Negative Negative, Indeterminate [facility] QC Media Lot # [id number] [facility] Lot# Expiration Date 33 [facility] Swab 11/16/2024 3:40 PM EST Reynold Name POINT OF CARE TEST ENTER/EDIT OR DERABLES Final Result Performing Organization Address City/[facility]/ZIP Co de Phone Number [facility] [address] [place] [phone] * POCT Rapid Influenza A ASCENCIO ID NOW (11/16/2024 3:40 PM EST) Pathologist [facility] Influenza A Negative Negative, Indeterminate [facility] QC Media Lot # [id number] [facility] Lot# Expiration Date 401 [facility] Swab 11/16/2024 3:40 PM EST Reynold Name POINT OF CARE TEST ENTER/EDIT OR DERABLES Final Result Performing Organization Address [facility] Co de Phone Number [facility] [address] [place] [phone] * POCT Rapid Covid-19 BinaxNOW (11/16/2024 3:39 PM EST) Pathologist [facility] Rapid COVID Ag Negative QC Media Lot # [id number] Lot# Expiration Date Nares 11/16/2024 3:39 PM EST Reynold Crowell MD POINT OF CARE TEST ENTER/EDIT OR DERABLES Final Result * (ABNORMAL) POCT HGB A1C (11/16/2024 2:28 PM EST) Pathologist [facility] Hemoglobin A1C 6.2(A) 4.0 - 6.0 % QC Media Lot # [id number] Lot# Expiration Date Blood 11/16/2024 2:28 PM EST us Reynold Name POINT OF CARE TEST ENTER/EDIT OR DERABLES Final Result * POCT Glucose (11/16/2024 2:28 PM EST) Glucose Blood, POC 90 60 - 200 mg/dL QC Media Lot # [id number] Lot# Expiration Date Blood Capillary blood specimen / Unknown 11/16/2024 2:28 PM EST us Reynold Name POINT OF CARE TEST ENTER/EDIT OR DERABLES Final Result * BI Mammogram Screening Tomosynthesis Bilateral (11/10/2024 1:45 PM EST) Anatomical Region Laterality Modality Breast Bilateral Mammography 11/10/2024 1:45 PM EST Narrative 11/10/2024 2:38 PM EST ? [facility] [place] ? [address] ?[place] [address] ? Mammography Report ? Signed ? Patient: Isaías Maurer,Cece ?MR#: [id number] ?? [id number] ? : 1965 ?Acct:[id number] ? Age/Sex: 59 / F ?ADM Date: 02/20/25 ? Loc: HO.MAMMO ? Attending Dr: Reynold Name MD ? Ordering Physician: Name,Reynold MD ?Results: 2Benign Fi ?? ndings ? Date of Service: 02/20/25 ?Follow Up: 1 Year From Orig ?? inal Mammogram ? Procedure(s): MM tomosynthesis screening BI ?? Accession Number(s): [id number] ? cc: Name,Reynold FAUST ? EXAMINATION: ?? MM SCREENING DIGITAL BREAST [...] ??Gracia Ordoñez DO ??11/10/2024 02:35 PM EST ?? RP ? Dictated By: ?Gracia Ordoñez DO ? Signed By: ?<Electronically signed by Gracia Ordoñez, DO in OV> ? 11/10/24 1435 ? DD/ 1345 ? TD/TT: 11/10/24 1422 ? Manager Of Corporate: ? Procedure Note Donotuseinterpreter, Image - 11/10/2024 [facility] [address] [place] [address] Dr. [place], [place] [address] Mammography Report Signed Patient: Cece EspinosaMR#: [id number] : 1965Acct:[id number] Age/Sex: 59 / FADM Date: 11/10/24 Loc: HO.MAMMO Attending Dr: Reynold Crowell MD Ordering Physician: Reynold Crowell MDResults: 2Benign Fi ndings Date of Service: 11/10/24Follow Up: 1 Year From Orig inal Mammogram Procedure(s): MM tomosynthesis screening BI Accession Number(s): [id number] cc: Reynold Crowell MD EXAMINATION: MM SCREENING [...] Gracia Ordoñez DO 11/10/2024 02:35 PM EST RP Dictated By: Gracia Ordoñez DO Signed By: <Electronically signed by Gracia Ordoñez DO in OV> 11/10/24 1435 DD/ 1345 TD/TT: 11/10/24 1422 Manager Of Corporate: Reynold MORSE BI PROCEDURES Final Result * POCT ANIKA-14 Urine Drug Screen (11/01/2024 2:07 PM EST) Urine Urine specimen obtained by clean catch procedure / Unknown 11/01/2024 2:07 PM EST Leeanna Claudio RN - 11/01/2024 2:07 PM EST UTOX cup Lot#[id number] Exp. 06/15/26 Internal Pass Control Negative for all substances Kristen Williamson TOOL ROOM MACHINIST POINT OF CARE TEST ENTER/EDIT ORDERABLES Final Result * T-SPOT??.TB (10/31/2024 2:04 PM EST) Pathologist [facility] T Spot TB Negative Negative [facility] Comment:A negative test resu lt [...] as aquantitative test. TS PANEL A 1 [facility] TS PANEL B 0 [facility] Negative Control Passed [facility] Positive Control Passed [facility] Comment:For additional infor mation, please refer tohttp://education.[employer]/faq/RKX808(This link is being provided for informational/educational purposes only.)THIS TEST WAS PERFORMED AT:[employer]/[id number] [place] [id number] Harshal MARTIN MD,PHD 10/31/2024 2:04 PM EST 10/31/2024 2:04 PM EST Generic External Data Provider LAB BLOOD ORDERAB LES Final Result Performing Organization Address [facility] Co de Phone Number [facility] [address] [place] [phone] * Hepatitis Panel, General (10/31/2024 2:04 PM EST) Pathologist [facility] Hepatitis A IgM Nonreactive Nonreactive [facility] Comment:IgM antibodies to CORONADO V not detected; does not exclude earlyacute or recovered HAV infection. ~Hepatitis B Surface Antibody REACTIVE Nonreactive [facility] Comment:REACTIVE: > 11.99 mI U/mL Hepatitis B Core Antibody Nonreactive Nonreactive [facility] Hepatitis C Antibody Nonreactive Nonreactive [facility] Comment:Antibodies to HCV no t detected; does not exclude early acuteHCV infection. Hepatitis B Surface Ag Negative Negative [facility] 10/31/2024 2:04 PM EST 10/31/2024 2:04 PM EST Generic External Data Provider LAB BLOOD ORDERAB LES Final Result Performing Organization Address [facility] Co de Phone Number [facility] [address] [place] [phone] * (ABNORMAL) CBC auto differential (10/06/2024 4:00 PM EST) Pathologist [facility] White Blood Count 5.5 4.8 - 10.8 X10*3/uL [facility] Red Blood Count 4.42 4.20 - 5.50 X10*6/uL [facility] Hemoglobin 12.2 12.0 - 16.0 g/dl [facility] Hematocrit 37.6 37.0 - 47.0 % [facility] Mean Corpuscular Volume 85.1 80.0 - 98.0 fL [facility] Mean Corpuscular Hemoglobin 27.6 27.0 - 33.0 pg [facility] Mean Corpuscular HGB Conc 32.4 31.0 - 35.0 g/dl [facility] Red Cell Distribution Width 14.9 11.0 - 16.0 % [facility] Platelet Count 179 160 - 400 X10*3/uL [facility] Mean Platelet Volume 11.4 9.4 - 12.3 fL [facility] Neutrophils Percent Auto 71.5 45 - 73 % [facility] Imm Gran Pct Auto 0.4 0.0 - 0.4 % [facility] Lymphocytes Percent Auto 17.9(L) 20 - 40 % [facility] Monocytes Percent Auto 8.2 2 - 11 % [facility] Eosinophils Percent Auto 1.6 0 - 4 % [facility] Basophils Percent Auto 0.4 0 - 2 % [facility] NRBC Pct Auto 0.0 0.0 - 0.2 /100WBC [facility] Neutrophils Absolute Auto 4.0 2.0 - 8.3 x10*3/uL [facility] Imm Gran Abs Auto 0.02 0.00 - 0.03 X10*3/uL [facility] Lymphocytes Absolute Auto 1.0(L) 1.2 - 4.9 X10*3/uL [facility] Monocytes Absolute Auto 0.5 0.1 - 1.2 X10*3/uL [facility] Eosinophils Absolute Auto 0.1 0.0 - 0.4 X10*3/uL [facility] Basophils Absolute Auto 0.0 0.0 - 0.2 X10*3/uL [facility] NRBC Abs Auto 0.000 0.0 - 0.012 X10*3/uL [facility] 10/06/2024 4:00 PM EST 10/06/2024 4:00 PM EST us Generic External Data Provider LAB BLOOD ORDERAB LES Final Result [facility] [address] [place] [address] [phone] * (ABNORMAL) Comprehensive Metabolic Panel (10/06/2024 4:00 PM EST) Sodium 142 135 - 145 mmol/L [facility] Potassium 3.7 3.3 - 5.1 mmol/L [facility] Chloride 108 96 - 108 mmol/L [facility] Carbon Dioxide 27 22 - 29 mmol/L [facility] Anion Gap 11(L) 12 - 20 [facility] Urea Nitrogen (BUN) 21(H) 9 - 16 mg/dL [facility] Creatinine, Serum 0.95 0.5 - 1.4 mg/dL [facility] Estimated Glomerular Filt Rate >60 [facility] Comment:Chronic Kidney Disea se: Estimated GFR < 60 mL/min/[id number] Kidney Disease: Estimated GFR < 15 mL/min/1.73m2 Glucose 96 60 - 115 mg/dL [facility] Calcium 9.4 8.4 - 10.2 mg/dL [facility] Bilirubin, Total 0.3 0.0 - 1.0 mg/dL [facility] Aspartate Amino Transferase 41(H) 5 - 31 U/L [facility] Alanine Aminotransferase 37(H) 0 - 31 U/L [facility] Total Protein 8.5(H) 6.5 - 8.0 g/dL [facility] Albumin Level 4.2 3.5 - 5.0 g/dL [facility] Alkaline Phosphatase 78 39 - 117 U/L [facility] 10/06/2024 4:00 PM EST 10/06/2024 4:00 PM EST us Generic External Data Provider LAB BLOOD ORDERAB LES Final Result [facility] [address] [place] [address] [phone] * Hematoxylin and Eosin Stain (09/06/2024 1:35 PM EST) 09/06/2024 1:35 PM EST 09/06/2024 2:10 PM EST Narrative [facility] - 09/08/2024 3:57 PM EST ----- ------- Name: Cece Espinosa ? Age/Sex: 59/F ? : 1965 Unit#: [id number] ?? Attend Dr: Kylee Mejias MD ?Re09/06/24 ?Status: DEP SDC ? Location: HO.SSS ?Disch: ? ----- ------- SPEC : [id number] ? RECD: 09/06/24-7910 ? STATUS: ??SOUT ? REQ NUM: [id number] ? LEVI: 09/06/24-1334 ? SUBM DR: Kylee Mejias MD ? ENTERED: ??09/06/24-9076 ?SP TYPE: Surgical ? OTHR DR: Reynold [...] ? Age/Sex: 59/F ? : 1965 Unit#: [id number] ?? Attend Dr: Kylee Mejias MD ?Re09/06/24 ?Status: DEP SDC ? Location: HO.SSS ?Disch: ? ----- ------- SPEC : [id number] ? RECD: 09/06/24-263 ? STATUS: ??SOUT ? REQ NUM: [id number] ? LEVI: 09/06/24-1331 ? SUBM DR: Kylee Mejias MD ? ENTERED: ??09/06/24-9321 ?SP TYPE: Surgical ? OTHR DR: Reynold [...] Copies To: ?? Kylee Mejias MD ?? [facility] ?? [address] ?? [place] [address] ?? [phone] ?? Name,Reynold FAUST ?? [address] [facility] ?? [place] [address] ?? [phone] ----- ------- Signed (signature on file) Warren Klein MD 09/08/24 9975 ? ----- ------- ? END OF REPORT ? us Generic External Data Provider LAB BLOOD ORDERAB LES Final Result [facility] [address] [place] [address] [phone] * (ABNORMAL) Lipid Panel, Standard (05/14/2024 9:34 AM EDT) Triglycerides 132 <150 mg/dL [facility] Comment:Desirable Triglyceri de: less than 150 mg/dLBorderline High Triglyceride 150-199 mg/dLHigh Triglyceride: 200-499 mg/dLVery High Triglyceride: greater than or equal to 5OO mg/dL Cholesterol 218(H) <200 mg/dL [facility] Comment:Desirable Cholestero l: less than 200 mg/dLBorderline High Cholesterol: 200-239 mg/dLHigh Cholesterol: greater than 239 mg/dL LDL Cholesterol Calculated 130(H) <100 mg/dL [facility] Comment:Desirable LDL: less than 100 mg/dLNear Optimal/Above Optimal LDL: 110- 129 mg/dLBorderline High LDL: 130-159 mg/dLHigh LDL: 160-189 mg/dLVery High LDL: greater than or equal to 190 mg/dL HDL Cholesterol 62 >40 mg/dL [facility] Comment:Desirable HDL: great er than 40 mg/dL Note: This HDL assay may give artificially low results in patients with liver disease. Blood Venous blood specimen / Unknown 05/14/2024 9:34 AM EDT 05/14/2024 9:34 AM EDT us Reynold Crowell MD LAB BLOOD ORDERABLES Final Resul t [facility] [address] [place] [address] [phone] * (ABNORMAL) THINPREP TIS PAP AND [...] been evaluated with computer assisted technology. CONVERTED [employer] [facility] Freezer Operator : SEE COMMENT [facility]S Comment: DCR, CT(ASCP) CT screening location: [address] ??[phone] HPV nRNA E6/E7 Detected(A) Not Detected CONVERTED [employer] Comment: Methodology: Crossband Layer-Mediated Amplification This assay detects E6/E7 viral messenger RNA (mRNA) from 14 high-risk HPV types (16,18,31,33,35,39,45,51,52,56,58,59,66,68). ? Cervical sources are required for HPV testing. If a vaginal source from a patient who has had a total hysterectomy with removal of cervix was ?? submitted, please contact the testing laboratory for alternative testing options. ?? For additional information, please refer to http://education.Huddlebuy/faq/HIR449y0 (This link if provided for information/ educational purposes only.) Interpretation/R esult: Negative for intraepithelial lesion or malignancy. [facility] LMP: MENOPAUSAL [facility] PATHOLOGIST: SEE COMMENT CONVE RTED [facility]GAC[facility] LABS Comment: Chris Bai M.D., Direct , Board Certified in Anatomic Pathology and Cytopathology (electronic signature) Consulting Pathologist [facility] [address] [place] [phone] Prev. BX: NONE GIVEN [facility]VERTED [facility]GAC[facility] LABS Prev. PAP: NIL HPV - 2020 CONV ERTED [facility]GAC[facility] LABS SOURCE: Cervix [facility] Statement Of Adequacy: SEE COMMENT [facility] Comment: Satisfactory for evaluation. Endocervical/transformation zone component present. 07/30/2022 9:52 AM EST [facility] ORDERABLES Final Result CONVERT[facility]GACY LABS * HPV GENOTYPES 16,18/45 (07/30/2022 9:52 AM EST) HPV 16 RNA NOT DETECTED NOT DETECTED [facility] HPV 18/45 RNA NOT DETECTED NOT DETECTED [facility] Comment: Methodology: Crossband Layer Mediated Amplification Cervical sources are required for HPV testing. If a vaginal source from a patient who has had a total hysterectomy with removal of cervix was submitted, please contact the testing laboratory for alternative testing options. 07/30/2022 9:[address] [facility] LAB BLOOD ORDERABLES Megan l Result CONVERTED [facility] LABS from Last 3 Months or Most Recently Relevant to Health Maintenance Insurance [facility] [place] [id number] Care Teams Classroom Instructor Relationship Specialty Start Date End Date Name, MD Reynold [address] [place] [phone] PCP - General Family Medicine 12/26/15
--- OUTSIDE RECORDS SUMMARY | 2024-11-23 19:28 | XMS_ITS | Encounter Summary ---
Author Organization [employer] Address [address] [facility] [address] [facility] [address] 7[address] [place] [address] Care Team Providers Care Adjunct Spanish Instructor Name Role Phone Name, Reynold FAUST Primary Care Provider [phone] Encounter Details Date Type Department Care Team (Latest Contact Info) Description 11/23/2024 Travel Social History Tobacco Use Types Packs/Day Years Used Date Smoking Tobacco: Former Smokeless Tobacco: Never Alcohol Use Standard Drinks/Week [...] Description 12/02/2024 8:30 AM EDT Office Visit [facility] [address] [place] [address] Elisabet Greer DDS [address] [place] [address] 12/09/2024 10:45 AM EDT Office Visit [facility] [address] [place] [address] Dayron Rowell MD 230 [place] [address] 12/27/2024 9:45 AM EDT Office Visit [facility] [address] [place] [address] documented as of this encounter Visit Diagnoses Not on filedocumented in this encounter Additional Health Concerns Assessment Noted Time PHQ-9 Depression Total Score: 7 12/11/19 24 11:10 AM EDT documented as of this encounter Care Teams Adjunct Spanish Instructor Relationship Specialty Start Date End Date Name, MD Reynold [address] [place] [phone] PCP - General Family Medicine 12/26/15 documented as of this encounter
[2024-11-29 14:47] LABS: HPV Genotype 16 Negative (Negative); HPV Genotype 18 Negative (Negative); HPV High Risk Negative (Negative)
== END 2024-11-23 17:15 | disposition home or self-care (01) ==
LOC: HO.HHCLNP 17:14
PROVIDERS: Visit Provider Advanced Practice Midwife
DX: Z12.4 Encounter for screening for malignant neoplasm of cervix (principal); Z11.51 Encounter for screening for human papillomavirus (HPV); R30.0 Dysuria
CPT/HCPCS: 87086; 87626; 88175

== ENCOUNTER 2024-12-08 08:03 | Outpatient (REF) | payer OTHER, SELFPAY ==
--- NOTE | ~2024-12-08 | CT_ITS ---
EXAMINATION: CT ABDOMEN PELVIS ENTEROGRAPHY WITHOUT IV CONTRAST HISTORY: R10.33 - Periumbilical pain COMPARISON: There are no prior studies for comparison. TECHNIQUE: CT scan of the abdomen and pelvis was performed following administration of 85 mL Omnipaque 350 using standard departmental protocol. Coronal and sagittal reformatted images were generated and reviewed. The patient received low-density oral contrast material for CT enterography. This CT exam was performed with one or more of the following dose reduction techniques: automated exposure control, adjustment of the mA and/or kV according to patient size, use of iterative reconstruction technique. DLP: 343 mGy-cm FINDINGS: LOWER CHEST: The visualized lung bases are clear. There is no pleural effusion. CARDIOVASCULATURE: The heart is normal in size. There is no pericardial effusion. LIVER: The liver is normal in size and contour. No liver mass is identified. The hepatic and portal veins are patent. GALLBLADDER / BILE DUCTS: The gallbladder is unremarkable. There is no intra or extrahepatic biliary ductal dilatation. SPLEEN: The spleen is normal in size. No focal splenic lesion is identified. PANCREAS: The pancreas is unremarkable in appearance. ADRENAL GLANDS: Within normal limits. KIDNEYS/RETROPERITONEUM: No renal calculi are identified. There is no hydronephrosis. No renal masses are identified. LYMPH NODES: No abdominal or pelvic lymphadenopathy. VASCULATURE: The abdominal aorta demonstrates atherosclerotic calcification, but is normal in caliber. MESENTERY/PERITONEUM: No free fluid. No masses. There is no free intraperitoneal gas. STOMACH: The stomach is unremarkable. SMALL BOWEL: The small bowel is normal in caliber. There is no abnormal small bowel wall thickening or mucosal hyperenhancement. COLON: There is diverticulosis of the sigmoid colon, without evidence of diverticulitis. APPENDIX: The appendix is not seen, however no inflammatory changes are seen adjacent to the cecum. URINARY BLADDER/PELVIC ORGANS: The urinary bladder is unremarkable. The uterus and ovaries are unremarkable. BONES / SOFT TISSUES: No suspicious bony or soft tissue abnormalities. CT/CT enterography IMPRESSION: Sigmoid diverticulosis without evidence of diverticulitis. Otherwise unremarkable CT enterography of the abdomen and pelvis. Electronically signed by: Darren Wagoner MD 12/08/2024 10:37 AM EDT
--- OUTSIDE RECORDS SUMMARY | 2024-12-08 08:07 | XMS_ITS | Encounter Summary ---
Author Organization [employer] Address [address] [facility] [address] 7[address] [place] [address] Care Team Providers Care Roofing Machine Operator Name Role Phone Name, Reynold FAUST Primary Care Provider [phone] Encounter Details Date Type Department Care Team [...] Care Team (Late st Contact Info) Description 12/09/2024 10:45 AM EDT Office Visit [facility] [address] [place] [address] Dayron Rowell MD [address] [place] [address] 12/27/2024 9:45 AM EDT Office Visit [address] [address] documented as of this encounter Visit Diagnoses Not on filedocumented in this encounter Additional Health Concerns Assessment Noted Time PHQ-9 Depression Total Score: 7 12/11/19 24 11:10 AM EDT documented as of this encounter Care Teams Roofing Machine Operator Relationship Specialty Start Date End Date Name, MD Reynold [address] [place] [address] PCP - General Family Medicine 12/26/15 documented as of this encounter
--- OUTSIDE RECORDS SUMMARY | 2024-12-08 08:07 | XMS_ITS | Encounter Summary ---
Author Organization [employer] Address [address] [place] [address] 7 [place] [address] Care Team Providers Care Copy Coordinator Name Role Phone Name, Reynold FAUST Primary Care Provider [phone] Reason for Visit * Reason Comments Med Refill Encounter Details Date Type Department Care Team (Late st Contact Info) Description 03/11/2023 Refill [facility] [address] [place] [phone] Name, MD Reynold [address] [place] [address] Chronic cough Social History Tobacco Use Types [...] Description 12/09/2024 10:45 AM EDT Office Visit [facility] [address] [place] [address] [phone] Dayron Rowell MD [address] [place] [address] 12/27/2024 9:45 AM EDT Office Visit [facility] 230 [place] [address] documented as of this encounter Visit Diagnoses Diagnosis Chronic cough Cough documented in this encounter Care Teams Copy Coordinator Relationship Specialty Start Date End Date Name, MD Reynold 230 [place] [address] PCP - General Family Medicine 12/26/15 documented as of this encounter
--- OUTSIDE RECORDS SUMMARY | 2024-12-08 08:07 | XMS_ITS | Encounter Summary ---
Author Organization [employer] Address [address] [facility] 7t [place] [address] Care Team Providers Care Human Resources Benefits Administrator Name Role Phone Name, Reynold FAUST Primary Care Provider [phone] Reason for Visit * Reason Onset Date Comments [employer] 11/21/2024 B oost, very vanilla 8oz (/cs) Encounter Details Date Type Department Care Team (Late st Contact Info) Description 11/21/2024 Telephone [facility] [address] [place], [place] [phone] Name, MD Reynold 230 [place], [place] [phone] [employer] (Boost, very vanilla 8oz [...] encounter Miscellaneous Notes * Telephone Encounter - Ginny Liang - 11/29/2024 8:53 AM EDT Confirmation of order for Boost signed and faxed to [employer] . Confirmation received and sent to scan. If patient calls to check status on above, please advise them to contact [employer] at [phone]. * Telephone Encounter - Gaviota Morgan [place] - 11/21/2024 1:49 PM EST Received medical necessity form for Boostsylvain (/). Form has been filled out and placed on PCP desk for signature. documented in this encounter Plan of Treatment Upcoming Encounters Date Type Department Care Team (Late st Contact Info) Description 12/09/2024 10:45 AM EDT Office Visit [facility] [address] [place] [address] Dayron Rowell MD [address] [place] [address] 12/27/2024 9:45 AM EDT Office Visit [facility] [address] [place] [address] documented as of this encounter Visit Diagnoses Not on filedocumented in this encounter Additional Health Concerns Assessment Noted Time PHQ-9 Depression Total Score: 7 12/11/19 24 11:10 AM EDT documented as of this encounter Care Teams Human Resources Benefits Administrator Relationship Specialty Start Date End Date Name, MD Reynold [address] [place] [address] PCP - General Family Medicine 12/26/15 documented as of this encounter
--- OUTSIDE RECORDS SUMMARY | 2024-12-08 08:07 | XMS_ITS | Encounter Summary ---
Author Organization [employer] Address [address] [facility] [address] 7[address] [place] [address] Care Team Providers Care Metal Tester Name Role Phone Name, Ryenold FAUST Primary Care Provider [phone] Encounter Details Date Type Department Care Team [...] Description 12/09/2024 10:45 AM EDT Office Visit [facility] [address] [place] [address] Dayron Rowell MD [address] [place] [address] 12/27/2024 9:45 AM EDT Office Visit [address] [address] documented as of this encounter Visit Diagnoses Not on filedocumented in this encounter Additional Health Concerns Assessment Noted Time PHQ-9 Depression Total Score: 7 12/11/19 24 11:10 AM EDT documented as of this encounter Care Teams Metal Tester Relationship Specialty Start Date End Date Name, MD Reynold [address] [place] [address] PCP - General Family Medicine 12/26/15 documented as of this encounter
--- OUTSIDE RECORDS SUMMARY | 2024-12-08 08:07 | XMS_ITS | Encounter Summary ---
Author Organization [employer] Address [address] [facility] 7t [place] [address] Care Team Providers Care Locker Attendant Name Role Phone Name, Reynold FAUST Primary Care Provider [phone] Reason for Visit * Reason Comments Med Refill Encounter Details Date Type Department Care Team ([facility] st Contact Info) Description 11/16/2024 Refill [facility] [address] [place] [address] Name, MD Reynold 230 [place] [address] Chronic pain syndrome Social History Tobacco Use [...] Description 12/09/2024 10:45 AM EDT Office Visit [facility] [address] [place] [address] Dayron Rowell MD [address] [place] [phone] 12/27/2024 9:45 AM EDT Office Visit [address] [address] documented as of this encounter Visit Diagnoses Diagnosis Chronic pain syndrome documented in this encounter Additional Health Concerns Assessment Noted Time PHQ-9 Depression Total Score: 7 12/11/19 24 11:10 AM EDT documented as of this encounter Care Teams Locker Attendant Relationship Specialty Start Date End Date Name, MD Reynold [address] [place] [phone] PCP - General Family Medicine 12/26/15 documented as of this encounter
--- OUTSIDE RECORDS SUMMARY | 2024-12-08 08:07 | XMS_ITS | Encounter Summary ---
Author Organization [employer] Address [address] [facility] 7t [place] [address] Care Team Providers Care Metal Trimmer Name Role Phone Name, Reynold FAUST Primary Care Provider [phone] Reason for Visit * Reason Onset Date Comments Durable Medical Equipment 11/17/2024 Knee s leeves Encounter Details Date Type Department Care Team (Late st Contact Info) Description 11/17/2024 Telephone [facility] [address] [place] [address] Name, MD Reynold [address] [place] [address] Durable Medical Equipment (Knee sleeves) Social History [...] Description 12/09/2024 10:45 AM EDT Office Visit [facility] [address] [place] [phone] Dayron Rowell MD 230 [place] [address] 12/27/2024 9:45 AM EDT Office Visit [facility] [address] [place] [address] documented as of this encounter Visit Diagnoses Not on filedocumented in this encounter Additional Health Concerns Assessment Noted Time PHQ-9 Depression Total Score: 7 12/11/19 24 11:10 AM EDT documented as of this encounter Care Teams Metal Trimmer Relationship Specialty Start Date End Date Name, MD Reynold [address] [place] [address] PCP - General Family Medicine 12/26/15 documented as of this encounter
--- OUTSIDE RECORDS SUMMARY | 2024-12-08 08:08 | XMS_ITS | Encounter Summary ---
Author Organization [employer] Address [address] [facility] [address] [place] [address] Care Team Providers Care Veterinarian Poultry Name Role Phone Name, Reynold FAUST Primary Care Provider [phone] Encounter Details Date Type Department Care Team [...] Description 12/09/2024 10:45 AM EDT Office Visit [facility] [address] [place] [phone] Dayron Rowell MD [address] [place] [address] 12/27/2024 9:45 AM EDT Office Visit [address] [address] documented as of this encounter Visit Diagnoses Not on filedocumented in this encounter Additional Health Concerns Assessment Noted Time PHQ-9 Depression Total Score: 7 12/11/19 24 11:10 AM EDT documented as of this encounter Care Teams Veterinarian Poultry Relationship Specialty Start Date End Date Name, MD Reynold [address] [place] [address] PCP - General Family Medicine 12/26/15 documented as of this encounter
--- OUTSIDE RECORDS SUMMARY | 2024-12-08 08:08 | XMS_ITS | Encounter Summary ---
Author Organization [employer] Address [address] [facility] 7t [place] [address] Care Team Providers Care Neurology Physician Name Role Phone Name, Reynold FAUST Primary Care Provider [phone] Reason for Visit * Reason Comments Med Refill Encounter Details Date Type Department Care Team ([facility] st Contact Info) Description 02/28/2024 Refill [facility] [address] [place] [address] Name, MD Reynold [address] [place] [address] Chronic cough Social History Tobacco Use Types [...] Description 12/09/2024 10:45 AM EDT Office Visit [facility] [address] [place] [phone] Dayron Rowell MD [address] [place] [address] 12/27/2024 9:45 AM EDT Office Visit [facility] [address] [place] [phone] documented as of this encounter Visit Diagnoses Diagnosis Chronic cough Cough documented in this encounter Additional Health Concerns Assessment Noted Time PHQ-9 Depression Total Score: 7 12/11/19 24 11:10 AM EDT documented as of this encounter Care Teams Neurology Physician Relationship Specialty Start Date End Date Name, MD Reynold [address] [place] [address] PCP - General Family Medicine 12/26/15 documented as of this encounter
--- OUTSIDE RECORDS SUMMARY | 2024-12-08 08:08 | XMS_ITS | Clinical Summary ---
Author Organization [employer] Address [address] [facility] [address] [place] [address] Care Team Providers Care Tag Writer Name Role Phone Name, Reynold FAUST Primary Care Provider [phone] Allergies Active Allergy Reactions Criticality Noted Date Comments Folic Acid Rash Low 11/16/2023 Other Reaction(s): Rash on neck Medications LORazepam (Ativan) 0.5 MG tablet Take [...] PAIN 84 tablet 11/17/19 25 025 Active nortriptyline (Pamelor) 10 MG capsule Take 10 mg by mouth at bedtime. 01/18/20 24 025 Discontinued celecoxib (CeleBREX) 200 MG capsule TAKE 1 CAPSULE BY MOUTH EVERY DAY 30 capsule 08/22/20 24 025 Discontinued(In effective) cloNIDine (Catapres) 0.1 MG tablet TAKE 1 TAB BY MOUTH IN THE MORNING AND 2 TABLETS AT BEDTIME 270 tablet 10/19/19 25 025 Discontinued(Th erapy completed) traMADol (Ultram) 50 MG tabletIndicatio ns:Chronic pain syndrome TAKE 1 TABLET BY MOUTH IN THE MORNING, AT NOON AND AT BEDTIME IF NEEDED FOR SEVERE PAIN 84 tablet 10/21/19 25 025 Discontinued nabumetone (Relafen) 500 MG tablet Take 1 tablet (500 mg) by mouth 2 times daily for 20 days. 40 tablet 11/16/19 25 025 Active Problems Problem Noted Date Diagnosed Date Diarrhea 12/02/2024 Axillary adenitis 12/02/2024 Ductal carcinoma in situ (DCIS) of breast 2024 H. 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 Agreement renewed. GAGANDEEP positive 12/10/2023 Chronic cough 12/10/2023 Esophageal dysphagia 12/10/2023 Overview (12/11/2023): [address] [address] Operative Note Signed Patient: Cece Espinosa MR#: [id number] : 1965 Acct:[id number] Age/Sex: 58 / F Loc: .[facility] Attending Dr: Kylee Mejias MD cc: Kylee [...] knee meniscal tear 12/10/2023 Hepatic steatosis 12/10/2023 Overview (12/02/2024): Normal LFTs 06/2019 steatosis discovered on ultrasound, Liver functions are normal 06/2019 alpha fetoprotein is not elevated, autoimmune workup is negative, hepatitis a B and C is negative. US abd 05/2020 IMPRESSION: Hepatic steatosis without any focal lesion. Rest of the abdominal ultrasound is unremarkable. Laboratory Tests 04/25/21 Plt Count 143 L Direct Bilirubin 0.2 Alpha Fetoprotein 2.8 Estimated GFR > 60 Total Bilirubin 0.4 AST 18 ALT 18 Alkaline Phosphatase 70 C-Reactive Protein 0.48 ULTRASOUND OF THE ABDOMEN 05/31/21 IMPRESSION: Mildly increased hepatic echogenicity and sound attenuation suggesting hepatic steatosis. Pain, dental 12/01/2023 Rheumatoid arthritis 11/13/2022 Overview (12/02/2024): -ve +++CCP dx 2020 HCQ started 11/2020. Caused GI upset and discontinued MTX 03/2023 had an allergic reaction to folic acid 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 [...] use 12/10/2023 Left breast lump 12/10/2023 12/11/2023 alf methotrexate user 12/10/2023 12/11/2023 Screening for viral disease 12/10/2023 08/02/2024 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 11/02/2019 12/11/2023 Ductal carcinoma in situ (DC IS) of left breast 11/02/2019 12/11/2023 Nausea and vomiting 07/13/2017 12/11/19 24 Hidradenitis 07/10/2016 12/11/2023 Backache 03/04/2012 12/11/2023 Acute gastritis 2012 05/31/2024 Encounters Date Type Department Care Team Description 12/02/2024 8:30 AM EDT Office Visit [facility] [address] [place] [address] SolorzanoElisabet Jackson, DDS 12/01/2024 Travel 11/28/2024 Orders Only [facility] [place] [address] Konstantin Davis CNM Microscopic hematuria (Primary Dx); Dysuria 11/23/2024 9:00 AM EST Office Visit [facility] [place] [place] [address] Konstantin Davis CNM Dysuria (Primary Dx); Routine cervical smear; Postmenopausal bleeding; Vulvar lesion 11/23/2024 Orders Only [facility] [place] [address] Konstantin Davis CNM 11/23/2024 Travel 11/21/2024 Telephone [facility] [place] [address] NameReynold MD [employer] (Boost, very vanilla 8oz (/)) 11/18/2024 Travel 11/17/2024 Telephone [facility] [place] [address] Reynold Crowell MD Durable Medical Equipment (Knee sleeves) 11/16/2024 2:30 PM EST Office Visit [facility] [place] [address] Reynold Crowell MD 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 (CMS/HCC) (Primary Dx); Acute sore throat; Dysuria; Prediabetes; Essential hypertension 11/16/2024 Travel 11/16/2024 Refill [facility] [place] [address] Reynold Crowell MD Chronic pain syndrome 11/12/2024 Travel 11/11/2024 1:30 PM EST Office Visit [facility] [place] [address] Elisabet Greer, MARILEE Poorly fitting dentures (Primary Dx) 11/09/2024 Travel 11/04/2024 Telephone [facility] [place] [place] [address] Elisabet Greer DDS partial adjustment made elsewhere 11/01/2024 9:45 AM EST Clinical Support [facility] [address] [place] [address] Kristen Williamson FNP Primary osteoarthritis of right knee (Primary Dx); alf (current) use of opiate analgesic; Rheumatoid arthritis involving multiple sites, unspecified whether rheumatoid factor present ([facility]) 11/01/[address] [address] Leeanna Paulino, RN REFRIGERATING TECHNICIAN Agreement signed today 11/01/2024 Travel 10/31/2024 Orders Only GENERIC EXTERNAL DATA DEPARTMENT Provider, Generic External Data 10/19/2024 Refill [facility] [address] [place] [address] Reynold Crowell MD Chronic pain syndrome 10/19/2024 Refill [facility] [address] [place] [address] Reynold Crowell MD 10/06/2024 Orders Only GENERIC EXTERNAL DATA DEPARTMENT Provider, [facility] External Data 10/06/2024 Telephone [facility] [address] [place] [address] Reynold Crowell MD Appointment Request 09/27/2024 Refill [facility] [address] [place], [place] [phone] Reynold Crowell MD Rash 09/23/2024 Refill [facility] [address] [place], [place] [phone] Reynold Crowell MD Chronic pain syndrome 09/13/2024 Telephone [facility] [address] [place] [address] Tommy Malave MA oct recalls from Last 3 Months Immunizations Name Administration [...] Description 12/09/2024 10:45 AM EDT Office Visit [facility] [address] [place] [address] Dayron Rowell MD [address] [place] [address] 12/27/2024 9:45 AM EDT Office Visit [facility] [address] [place] [address] Health Maintenance Due Date Last Done Comments [...] 10/10/2020, 07/06/2019 Depression Screening 12/10/2024 12/11/2023, 12/11/19 24 SDOH Screening 12/10/2024 12/11/2023 Alcohol/Substance Use Screening 03/23/2025 03/23/2024 Diabetes: Hemoglobin A1C 11/16/2025 025, 12/12/2023, 11/08/2022 Cervical Cancer Screening 11/23/2025 HPV/Cotest 11/23/2025 11/23/2024, 11/0 05/2022, 07/30/2022, Additional history exists Pap Smear 11/23/2025 11/23/2024, 07/30/2022 Tobacco Screening 12/02/2025 12/02/2024 Mammogram 11/10/2026 11/10/2024, 03/22, 04/13/2024, Additional history [...] Procedure Name Priority Date/Time Associated Diagnosis Comments NO CHARGE PROCEDURE Routine 12/02/2024 8 :30 AM EDT PAP SMEAR Routine 11/23/2024 9:23 AM EST Routine cervical smear POCT URINALYSIS DIPSTICK Routine 11/23/2024 9:23 AM EST Dysuria CULTURE, URINE, ROUTINE Routine 11/23/2024 9:14 AM EST Dysuria HPV DNA, LOW/HIGH RISK Routine 11/23/2024 12:00 AM EST POCT INFLUENZA B (ID NOW RAPID MOLECULAR) [...] AUTO DIFFERENTIAL Routine 10/06/2024 4:00 PM EST LIPID PANEL, STANDARD Routine 05/14/2024 9:34 AM EDT Essential hypertension INTRAORAL - COMPLETE SERIES OF RADIOGRAPHIC IMAGES Routine 12/01/2023 8:00 AM EDT Pain, dental Full coverage crown needed for tooth at risk for fracture Dental caries PERIODIC ORAL EVALUATION - ESTABLISHED PATIENT Routine 12/01/2023 8:00 AM EDT Pain, dental Full coverage crown needed for tooth at risk for fracture Dental caries PROPHYLAXIS - ADULT Routine 10/10/2020 1 2:00 [...] # [id number] Urine 11/23/2024 9:23 AM EST Konstantin Davis CNM POINT OF CARE TEST ENTER/ EDIT ORDERABLES Final Result * Pap Smear (11/23/2024 9:23 AM EST) Swab Cervix uteri structure / Unknown 11/23/2024 9:23 AM EST 11/24/2024 6:00 AM EST Narrative [facility] - 11/28/2024 8:33 AM EDT ----- ------- Name: Cece Espinosa ? Age/Sex: 59/F ? : 1965 Unit#: [id number] ?? Attend Dr: KONSTANTIN DAVIS CNM ?Re11/23/24 ?Status: DEP REF ? Location: [facility] ? Disch: ? ----- ------- SPEC : [id number] ? RECD: 11/24/24 ? STATUS: ??SOUT ? REQ NUM: [id number] ? LEVI: 11/23/24 ? SUBM DR: KONSTANTIN DAVIS CNM ? ENTERED: ??11/24/24 ?SP TYPE: Pap Smr ?OTHR DR: ? ORDERED: ??Pap Smear ? Interpretation ?? Satisfactory for evaluation. ?? Negative for intraepithelial lesion or malignancy. ?? No endocervical cells seen. ? HPV High Risk: ??Negative ? HPV Genotyping 16: ??Negative ?? HPV Genotyping 18: ??Negative ?Clinical Information LMP: Unknown date Previous PAP test: 07/2022, NIL/HPV+ ? Material Received ?? Cervix ----- ------- Signed (signature on file) MUNIR Fonseca (ASCP) 11/28/24 0833 ? ----- ------- ? END OF REPORT ? Konstantin Davis [facility] CYTOLOGY ORDERABLES F inal Result Performing Organization Address [facility] Co de Phone Number [facility] [address] [place] [address] [phone] * Culture, Urine, Routine (11/23/2024 9:14 AM EST) Urine Urine specimen obtained by clean catch procedure / Unknown 11/23/2024 9:14 AM EST 11/23/2024 5:15 PM EST Comment:[facility] Narrative [facility] - 11/25/2024 12:16 PM EST Urine Culture No growth. Specimen Source: Urine clean catch Konstantin WILL[facility] MICROBIOLOGY - GENERA L ORDERABLES Final Result Performing Organization Address [facility] Co de Phone Number [facility] [address] [place] [address] [phone] * HPV DNA, Low/High Risk (11/23/2024 12:00 AM EST) HPV High Risk Negative Negative [facility] HPV Genotype 16 Negative Negative [facility] HPV Genotype 18 Negative Negative [facility] Comment:HPV testing performe d at [facility] (CLIA#[id number]), [address] [place] [phone].Testing for HPV was performed using the Connor MATY 6800system. The presence of HPV in the female genital tract isassociated with a number of diseases, including cervicalcarcinoma. The HPV DNA high risk pool tests for HPV 31, 33,35, 39, 45, 51, 52, 56, 58, 59, 66 and 68. The testing forHPV 16 and 18 genotypes has also been performed. A positiveresult indicates detection of nucleic acid sequences fromone or more subtypes, whereas a negative result indicatessuch sequences were not detected. 11/23/2024 11/24/2024 8:5 6 AM EST us Konstantin WILLIS [facility] BLOOD ORDERABLES Megan l Result [facility] [address] [place] [phone] * POCT Rapid Influenza B ASCENCIO ID NOW (11/16/2024 3:40 PM EST) Influenza B Negative Negative, Indeterminate [facility] QC Media Lot # [id number] [facility] Lot# Expiration Date [id number] [facility] Swab 11/16/2024 3:40 PM EST Reynold Crowell MD POINT OF CARE TEST ENTER/EDIT OR DERABLES Final Result Performing Organization Address City/[facility]/ZIP Co de Phone Number [facility] [address] [place] [phone] * POCT Rapid Influenza A ASCENCIO ID NOW (11/16/2024 3:40 PM EST) Pathologist [facility] Influenza A Negative Negative, Indeterminate [facility] QC Media Lot # [id number] [facility] Lot# Expiration Date [id number] [facility] Swab 11/16/2024 3:40 PM EST Reynold Crowell MD POINT OF CARE TEST ENTER/EDIT OR DERABLES Final Result [facility] [address] [place] [address] [phone] * POCT Rapid Covid-19 BinaxNOW (11/16/2024 3:39 PM EST) [facility] Rapid COVID Ag Negative QC Media Lot # [id number] Lot# Expiration Date Nares 11/16/2024 3:39 PM EST Reynold Crowell MD POINT OF CARE TEST ENTER/EDIT OR DERABLES Final Result * (ABNORMAL) POCT HGB A1C (11/16/2024 2:28 PM EST) [facility] Hemoglobin A1C 6.2(A) 4.0 - 6.0 % QC Media Lot # [id number] Lot# Expiration Date , Blood 11/16/2024 2:28 PM EST Reynold Crowell MD POINT OF CARE TEST ENTER/EDIT OR DERABLES Final Result * POCT Glucose (11/16/2024 2:28 PM EST) [facility] Glucose Blood, POC 90 60 - 200 mg/dL QC Media Lot # [id number] Lot# Expiration Date 5,025 Blood Capillary blood specimen / Unknown 11/16/2024 2:28 PM EST us Reynold Name MD POINT OF CARE TEST ENTER/EDIT OR DERABLES Final Result * BI Mammogram Screening Tomosynthesis Bilateral (11/10/2024 1:45 PM EST) Anatomical Region Laterality Modality Breast Bilateral Mammography 11/10/2024 1:45 PM EST Narrative 11/10/2024 2:38 PM EST ? [facility] ? [address] ?[place] [address] ? Mammography Report ? Signed ? Patient: Isaías Maurer,Cece ?MR#: [id number] ?? [id number] ? : 1965 ?Acct:[id number] ? Age/Sex: 59 / F ?ADM Date: 11/10/ ? Loc: HO.MAMMO ? Attending Dr: Reynold Name MD ? Ordering Physician: Name,Reynold MD ?Results: 2Benign Fi ?? ndings ? Date of Service: 11/10/ ?Follow Up: 1 Year From Orig ?? inal Mammogram ? Procedure(s): MM tomosynthesis screening BI ?? Accession Number(s): [id number] ? cc: Name,Reynold FAUST ? EXAMINATION: ?? [...] DD/ 1345 ? TD/TT: 11/10/24 1422 ? Quality Assurance Intern: ? Procedure Note Sukhi, Image - 11/10/2024 [facility] [address] [place] [address] [place] [address] Mammography Report Signed Patient: Cece Espinosa#: [id number] : 1965Acct:[id number] Age/Sex: 59 / FADM Date: 11/10/24 Loc: HO.MAMMO Attending Dr: Reynold Crowell MD Ordering Physician: Reynold Crowell MDResults: 2Benign Fi ndings Date of Service: 11/10/24Follow Up: 1 Year From Orig ina Mammogram Procedure(s): MM tomosynthesis screening BI Accession Number(s): [id number] cc: Reynold Crowell MD EXAMINATION: MM SCREENING [...] 11/10/24 1435 DD/ 1345 TD/TT: 11/10/24 1422 Quality Assurance Intern: Reynold MCCORMICK BI PROCEDURES Final Result * POCT ANIKA-14 Urine Drug Screen (11/01/2024 2:07 PM EST) Urine Urine specimen obtained by clean catch procedure / Unknown 11/01/2024 2:07 PM EST Narrative Leeanna Paulino RN - 11/01/2024 2:07 PM EST UTOX cup Lot#[id number] Exp. 06/15/26 Internal Pass Control Negative for all substances Kristen GONSALESP POINT OF CARE TEST ENTER/EDIT ORDERABLES Final Result * T-SPOT??.TB (10/31/2024 2:04 PM EST) T Spot TB Negative Negative [facility] Comment:A negative test resu lt does [...] aquantitative test. TS PANEL A 1 [facility] TS PANEL B 0 [facility] Negative Control Passed [facility] Positive Control Passed [facility] Comment:For additional infor matenid, please refer tohttp://education.FClub.Rentlytics/faq/CEE679(This link is being provided for informational/educational purposes only.)THIS TEST WAS PERFORMED AT:[employer] [id number] [place] [id number] MARTIN MD,PHD 10/31/2024 2:04 PM EST 10/31/2024 2:04 PM EST Generic External Data Provider LAB BLOOD ORDERAB LES Final Result Performing Organization Address [facility]/ZIP Co de Phone Number [facility] [address] [place] [address] [phone] * Hepatitis Panel, General (10/31/2024 2:04 PM EST) [facility] Hepatitis A IgM Nonreactive Nonreactive [facility] Comment:IgM antibodies to CORONADO V not detected; does not exclude earlyacute or recovered HAV infection. ~Hepatitis B Surface Antibody REACTIVE Nonreactive [facility] Comment:REACTIVE: > 11.99 mI U/mL Hepatitis B Core Antibody Nonreactive Nonreactive [facility] Hepatitis C Antibody Nonreactive Nonreactive [facility] Comment:Antibodies to HCV no t detected; does not exclude early acuteHCV infection. Hepatitis B Surface Ag Negative Negative [facility] 10/31/2024 2:04 PM EST 10/31/2024 2:04 PM EST Generic External Data Provider LAB BLOOD ORDERAB LES Final Result Performing Organization Address [facility]/ZIP Co de Phone Number [facility] [address] [place] [address] [phone] * (ABNORMAL) CBC auto differential (10/06/2024 4:00 PM EST) [facility] White Blood Count 5.5 4.8 - 10.8 X10*3/uL [facility] Red Blood Count 4.42 4.20 - 5.50 X10*6/uL [facility] Hemoglobin 12.2 12.0 - 16.0 g/dl [facility] Hematocrit 37.6 37.0 - 47.0 % [facility] Mean Corpuscular Volume 85.1 80.0 - 98.0 fL [facility] Mean Corpuscular Hemoglobin 27.6 27.0 - 33.0 pg [facility] Mean Corpuscular HGB Conc 32.4 31.0 - 35.0 g/dl [facility] Red Cell Distribution Width 14.9 11.0 - 16.0 % [facility] Platelet Count 179 160 - 400 X10*3/uL [facility] Mean Platelet Volume 11.4 9.4 - 12.3 fL [facility] Neutrophils Percent Auto 71.5 45 - 73 % [facility] Imm Gran Pct Auto 0.4 0.0 - 0.4 % [facility] Lymphocytes Percent Auto 17.9(L) 20 - 40 % [facility] Monocytes Percent Auto 8.2 2 - 11 % [facility] Eosinophils Percent Auto 1.6 0 - 4 % [facility] Basophils Percent Auto 0.4 0 - 2 % [facility] NRBC Pct Auto 0.0 0.0 - 0.2 /100WBC [facility] Neutrophils Absolute Auto 4.0 2.0 - 8.3 x10*3/uL [facility] Imm Gran Abs Auto 0.02 0.00 - 0.03 X10*3/uL [facility] Lymphocytes Absolute Auto 1.0(L) 1.2 - 4.9 X10*3/uL [facility] Monocytes Absolute Auto 0.5 0.1 - 1.2 X10*3/uL [facility] Eosinophils Absolute Auto 0.1 0.0 - 0.4 X10*3/uL [facility] Basophils Absolute Auto 0.0 0.0 - 0.2 X10*3/uL [facility] NRBC Abs Auto 0.000 0.0 - 0.012 X10*3/uL [facility] 10/06/2024 4:00 PM EST 10/06/2024 4:00 PM EST us Generic External Data Provider LAB BLOOD ORDERAB LES Final Result [facility] [address] [place] [address] [phone] * (ABNORMAL) Comprehensive Metabolic Panel (10/06/2024 4:00 PM EST) Sodium 142 135 - 145 mmol/L [facility] Potassium 3.7 3.3 - 5.1 mmol/L [facility] Chloride 108 96 - 108 mmol/L [facility] Carbon Dioxide 27 22 - 29 mmol/L [facility] Anion Gap 11(L) 12 - 20 [facility] Urea Nitrogen (BUN) 21(H) 9 - 16 mg/dL [facility] Creatinine, Serum 0.95 0.5 - 1.4 mg/dL [facility] Estimated Glomerular Filt Rate >60 [facility] Comment:Chronic Kidney Disea se: Estimated GFR < 60 mL/min/1.78a3Ojmxjk Kidney Disease: Estimated GFR < 15 mL/min/1.73m2 Glucose 96 60 - 115 mg/dL [facility] Calcium 9.4 8.4 - 10.2 mg/dL [facility] Bilirubin, Total 0.3 0.0 - 1.0 mg/dL [facility] Aspartate Amino Transferase 41(H) 5 - 31 U/L [facility] Alanine Aminotransferase 37(H) 0 - 31 U/L [facility] Total Protein 8.5(H) 6.5 - 8.0 g/dL [facility] Albumin Level 4.2 3.5 - 5.0 g/dL [facility] Alkaline Phosphatase 78 39 - 117 U/L [facility] 10/06/2024 4:00 PM EST 10/06/2024 4:00 PM EST us Generic External Data Provider LAB BLOOD ORDERAB LES Final Result [facility] [address] [place] [address] [phone] * (ABNORMAL) Lipid Panel, Standard (05/14/2024 9:34 AM EDT) Triglycerides 132 <150 mg/dL [facility] Comment:Desirable Triglyceri de: less than 150 mg/dLBorderline High Triglyceride 150-199 mg/dLHigh Triglyceride: 200-499 mg/dLVery High Triglyceride: greater than or equal to 5OO mg/dL Cholesterol 218(H) <200 mg/dL [facility] Comment:Desirable Cholestero l: less than 200 mg/dLBorderline High Cholesterol: 200-239 mg/dLHigh Cholesterol: greater than 239 mg/dL LDL Cholesterol Calculated 130(H) <100 mg/dL [facility] Comment:Desirable LDL: less than 100 mg/dLNear Optimal/Above Optimal LDL: 110- 129 mg/dLBorderline High LDL: 130-159 mg/dLHigh LDL: 160-189 mg/dLVery High LDL: greater than or equal to 190 mg/dL HDL Cholesterol 62 >40 mg/dL [facility] Comment:Desirable HDL: great er than 40 mg/dL Note: This HDL assay may give artificially low results in patients with liver disease. Blood Venous blood specimen / Unknown 05/14/2024 9:34 AM EDT 05/14/2024 9:34 AM EDT us Reynold Name LAB BLOOD ORDERABLES Final Resul t [facility] [address] [place] [phone] from Last 3 Months or Most Recently Relevant to Health Maintenance Insurance [facility] - [facility] Care Teams Tag Writer Relationship Specialty Start Date End Date Name, MD Reynold [address] [place] [address] PCP - General Family Medicine 12/26/15
--- OUTSIDE RECORDS SUMMARY | 2024-12-08 08:08 | XMS_ITS | Encounter Summary ---
Author Organization [employer] Address [address] [place] [address] Care Team Providers Care Chicken Cleaner Name Role Phone Name, Reynold FAUST Primary Care Provider [phone] Encounter Details Date Type Department Care Team ([facility] st Contact Info) Description 11/28/2024 Orders Only [facility] [address] [place] [address] Janae Maldonado CNM [address] [place] [address] Microscopic hematuria (Primary Dx); Dysuria Social History Tobacco Use Types Packs/Day Years [...] Description 12/09/2024 10:45 AM EDT Office Visit [facility] [address] [place] [phone] Dayron Rowell MD [address] [place] [phone] 12/27/2024 9:45 AM EDT Office Visit [address] [address] Scheduled Orders Name Type Priority Associated Diagnoses Orde r Schedule Urinalysis Complete Lab Routine Dysuria Expected: 11/28/2024, Expires: 11/28/2025 documented as of this encounter Visit Diagnoses Diagnosis Microscopic hematuria- Primary Dysuria documented in this encounter Additional Health Concerns Assessment Noted Time PHQ-9 Depression Total Score: 7 12/11/19 24 11:10 AM EDT documented as of this encounter Care Teams Chicken Cleaner Relationship Specialty Start Date End Date Name, MD Reynold [address] [place] [phone] PCP - General Family Medicine 12/26/15 documented as of this encounter
--- OUTSIDE RECORDS SUMMARY | 2024-12-08 08:08 | XMS_ITS | Encounter Summary ---
Author Organization [employer] Address [address] [place] [address] 7 [place] [address] Care Team Providers Care Burlap Spreader Name Role Phone Name, Reynold FAUST Primary Care Provider [phone] Reason for Referral * Consultation (Urgent) - Authorized Specialty Diagnoses / Procedures Referred By Contac t Referred To Contact Family Medicine Diagnoses Vulvar lesion Janae Davis CNM [address] [place] [address] Phone: tel: fax: Referral ID Status Reason Start Date Expiration Date Visits Requested Visits Authorized [id number] Authorized Specialty Services Required 11/23/2024 11/23/2025 1 1 * Imaging (Urgent) - Authorized Specialty Diagnoses / Procedures Referred By Contac t Referred To Contact Radiology Diagnoses Postmenopausal bleeding Procedures Us Pelvis complete Janae Davis CNM [address] [place] [address] Phone: tel: fax: [address] Phone: tel: fax: Referral ID Status Reason Start Date Expiration Date V isits Requested Visits Authorized [id number] Authorized 11/23/2024 11/23/2025 1 1 * Imaging (Urgent) - Authorized Specialty Diagnoses / Procedures Referred By Dara gutierrez Referred To Contact Radiology Diagnoses Postmenopausal bleeding Procedures US Pelvis Transvaginal Janae Davis CNM [address] [place] [address] Phone: tel: fax: [facility] [address] [place] [address] Phone: tel: fax: Referral ID Status Reason Start Date Expiration Date V isits Requested Visits Authorized [id number] Authorized 11/23/2024 11/23/2025 1 1 Reason for Visit * Reason Comments Gynecologic Exam Encounter Details Date Type Department Care Team ([facility] st Contact Info) Description 11/23/2024 9:00 AM EST Office Visit [facility] MEDICINE [address] [place] [address] Janae Davis CNM [address] [place] [address] Dysuria (Primary Dx); Routine cervical smear; Postmenopausal [...] in this encounter Progress Notes * Janae Davis CNM - 11/23/2024 9:00 AM EST Subjective Patient ID: Cece Maurer is a 59 y.o. 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 [...] kg/m?? Physical Exam Exam conducted with a head porter baggage present (Janae Davis CNM). Constitutional: Appearance: Normal appearance. Abdominal: Tenderness: [...] If EM > 3mm, will refer to P[employer] SHEETING CUTTER for further evaluation. Vulvar lesion - Referral to [facility] Derm Skin Adult; Future Suggestive of molluscum, but not sexually active in 18 years, not care-giving for young children. Will send to derm for evaluation. documented in this encounter Miscellaneous Notes * Result Encounter Note - Janae Davis CNM - 11/23/2024 9:00 AM EST Please ask Cece to come in for repeat urine testing. Her culture showed she didn't have an infection, but there was blood in her urine when I saw her so I want to recheck. Thanks! * Result Encounter Note - Janae Davis CNM - 11/23/2024 9:00 AM EST Thanks! documented in this encounter Plan of Treatment Upcoming Encounters Date Type Department Care Team (Late st Contact Info) Description 12/09/2024 10:45 AM EDT Office Visit [facility] MEDICINE [address] [place] [address] Dayron Rowell MD [address] [place] [address] 12/27/2024 9:45 AM EDT Office Visit [facility] [place] [address] Scheduled Orders Name Type Priority Associated Diagnoses Orde r Schedule US Pelvis Transvaginal Imaging Urgent Postmenopausal bleeding Expected: 11/23/2024, Expires: 11/23/2025 Us Pelvis complete Imaging Urgent Postmenopausal bleeding Expected: 11/23/2024, Expires: 11/23/2025 Scheduled Referrals Name Type Priority Associated Diagnoses Orde r Schedule Referral to [facility] Derm Skin Adult Outpatient Referral Urgent Vulvar lesion Expected: 11/23/2024 (Approximate), Expires: 11/23/2025 documented as of this encounter Procedures Procedure Name Priority Date/Time Associated Diagnosis Comments POCT URINALYSIS DIPSTICK Routine 11/23/2024 9:23 AM EST Dysuria PAP SMEAR Routine 11/23/2024 9:23 AM EST Routine cervical smear CULTURE, URINE, ROUTINE Routine 11/23/2024 9:14 AM EST Dysuria documented in this encounter Results * Pap Smear (11/23/2024 9:23 AM EST) Swab Cervix uteri structure / Unknown 11/23/2024 9:23 AM EST 11/24/2024 6:00 AM EST [facility] - 11/28/2024 8:33 AM EDT ----- ------- Name: Cece Espinosa ? Age/Sex: 59/F ? : 1965 Unit#: [id number] ?? Attend Dr: JANAE DAVIS CNM ?Re11/23/24 ?Status: DEP REF ? [facility] ? Disch: ? ----- ------- SPEC : [id number] ? RECD: 11/24/24 ? STATUS: ??SOUT ? REQ NUM: [id number] ? LEVI: 11/23/24 ? SUBM DR: JANAE DAVIS CNM ? ENTERED: ??11/24/24 ?SP TYPE: [...] ------- ? END OF REPORT ? us Janae Davis [facility] CYTOLOGY ORDERABLES F inal Result [facility] [address] [place] [phone] * (ABNORMAL) POCT urinalysis dipstick manually resulted [...] [phone] Urine 11/23/2024 9:23 AM EST Janae Davis CNM POINT OF CARE TEST ENTER/ EDIT ORDERABLES Final Result * Culture, Urine, Routine (11/23/2024 9:14 AM EST) Urine Urine specimen obtained by clean catch procedure / Unknown 11/23/2024 9:14 AM EST 11/23/2024 5:15 PM EST Comment:UACC Narrative [facility] - 11/25/2024 12:16 PM EST Urine Culture No growth. Specimen Source: Urine clean catch Janae WILLIS LAB MICROBIOLOGY - GENERA L ORDERABLES Final Result Performing Organization Address City/State/[facility] Co de Phone Number [facility] [address] [place] [phone] documented in this encounter Visit Diagnoses Diagnosis Dysuria- Primary Routine cervical smear Screening for malignant neoplasm of the cervix Postmenopausal bleeding Vulvar lesion Other specified noninflammatory disorder of vulva and perineum documented in this encounter Additional Health Concerns Assessment Noted Time PHQ-9 Depression Total Score: 7 12/11/19 24 11:10 AM EDT documented as of this encounter Care Teams Burlap Spreader Relationship Specialty Start Date End Date Name, MD Reynold [address] [place] [phone] PCP - General Family Medicine 12/26/15 documented as of this encounter
--- OUTSIDE RECORDS SUMMARY | 2024-12-08 08:08 | XMS_ITS | Encounter Summary ---
Author Organization [employer] Address [address] [facility] 7t [place] [address] Care Team Providers Care Country Printer Name Role Phone Name, Reynold FAUST Primary Care Provider [phone] Encounter Details Date Type Department Care Team (Late st Contact Info) Description 10/13/2022 Orders Only [facility] MED & PEDS [address] [place], [place] [phone] Sadia Silva LPN Social History Tobacco Use [...] Description 12/09/2024 10:45 AM EDT Office Visit [facility] MEDICINE [address] [place] [address] Dayron Rowell MD [address] [place] [address] [phone] 12/27/2024 9:45 AM EDT Office Visit [facility] MEDICINE [address] [place] [address] [phone] documented as of this encounter Procedures Procedure Name Priority Date/Time Associated Diagnosis Comments CBC WITH AUTO DIFFERENTIAL Routine 11/08/2022 10:25 AM EST HEMOGLOBIN A1C Routine 11/08/2022 10:25 AM EST LIPID PANEL, STANDARD Routine 11/08/2022 10:25 AM EST COMPREHENSIVE METABOLIC PANEL Routine 11/08/2022 10:25 AM EST documented in this encounter Results * Lipid Panel, Standard (11/08/2022 10:25 AM EST) Triglycerides 142 mg/dL [facility] Comment:Desirable Triglyceri de: less than 150 mg/dLBorderline High Triglyceride 150-199 mg/dLHigh Triglyceride: 200-499 mg/dLVery High Triglyceride: greater than or equal to 5OO mg/dL Cholesterol 225 mg/dL [facility] Comment:Desirable Cholestero l: less than 200 mg/dLBorderline High Cholesterol: 200-239 mg/dLHigh Cholesterol: greater than 239 mg/dL LDL Cholesterol Calculated 131 mg/dl [facility] Comment:Desirable LDL: less than 100 mg/dLNear Optimal/Above Optimal LDL: 110- 129 mg/dLBorderline High LDL: 130-159 mg/dLHigh LDL: 160-189 mg/dLVery High LDL: greater than or equal to 190 mg/dL HDL Cholesterol 66 mg/dL [facility] Comment:Desirable HDL: great er than 40 mg/dL Note: This HDL assay may give artificially low results in patients with liver disease. 11/08/2022 10:2 5 AM EST 11/08/2022 10:25 AM EST us [facility] External Provider LAB BLO OD ORDERABLES Final Result [facility] [address] [place] [phone] [phone] * (ABNORMAL) Comprehensive Metabolic Panel (11/08/2022 10:25 AM EST) Sodium 143 135 - 145 mmol/L [facility] Potassium 4.1 3.3 - 5.1 mmol/L [facility] Chloride 106 96 - 108 mmol/L [facility] Carbon Dioxide 27 22 - 29 mmol/L [facility] Anion Gap 14 12 - 20 [facility] Urea Nitrogen (BUN) 23(H) 9 - 16 mg/dL [facility] Creatinine, Serum 0.81 0.5 - 1.4 mg/dL [facility] Estimated Glomerular Filt Rate >60 [facility] Comment:NOTE: For -Am erican individuals, multiply the result by 1.210.Chronic Kidney Disease: Estimated GFR < 60 mL/min/1.54d5Kfmxvl Kidney Disease: Estimated GFR < 15 mL/min/1.73m2 Glucose 107 60 - 115 mg/dL [facility] Calcium 9.5 8.4 - 10.2 mg/dL [facility] Bilirubin, Total 0.5 0.0 - 1.0 mg/dL [facility] Aspartate Amino Transferase 24 5 - 31 U/L [facility] Alanine Aminotransferase 27 0 - 31 U/L [facility] Total Protein 7.5 6.5 - 8.0 g/dL [facility] Albumin Level 4.2 3.5 - 5.0 g/dL [facility] Alkaline Phosphatase 79 39 - 117 U/L [facility] 11/08/2022 10:2 5 AM EST 11/08/2022 10:25 AM EST [facility] External Provider LAB BLO OD ORDERABLES Final Result [facility] [address] [place] [phone] [phone] * Hemoglobin A1c (11/08/2022 10:25 AM EST) Hemoglobin A1c 6.2 % [facility] Comment:Hemoglobin A1C Refer ence Range Adults: 4.8 - 6.0 % Non diabetic: < 6.0 % Goal: < 7.0 %Additional Action Suggested: > 8.0 %Note: Hemoglobin A1c results are invalid for patients with abnormal amounts of HbF. Blood transfusions may impact the HbA1c concentration in the patient sample. Estimated Average Glucose 131 mg/dL [facility] Comment:eAG = Estimated ave rage glucose which is %A1C expressed asaverage glucose, using the formula of the I0O-EbjxyndBadmsop Glucose study (ADAG), Diabetes Care, Vol.31,#8,2007 11/08/2022 10:2 5 AM EST 11/08/2022 10:25 AM EST us [facility] External Provider LAB BLO OD ORDERABLES Final Result [facility] [address] [place] [address] [phone] * (ABNORMAL) CBC auto differential (11/08/2022 10:25 AM EST) White Blood Count 3.9(L) 4.8 - 10.8 X10*3/uL [facility] Red Blood Count 4.47 4.20 - 5.50 X10*6/uL [facility] Hemoglobin 12.2 12.0 - 16.0 g/dl [facility] Hematocrit 38.1 37.0 - 47.0 % [facility] Mean Corpuscular Volume 85.2 80.0 - 98.0 fL [facility] Mean Corpuscular Hemoglobin 27.3 27.0 - 33.0 pg [facility] Mean Corpuscular HGB Conc 32.0 31.0 - 35.0 g/dl [facility] Red Cell Distribution Width 14.4 11.0 - 16.0 % [facility] Platelet Count 178 160 - 400 X10*3/uL [facility] Mean Platelet Volume 11.4 9.4 - 12.3 fL [facility] Neutrophils Percent Auto 65.0 45 - 73 % [facility] Imm Gran Pct Auto 0.3 0.0 - 0.4 % [facility] Lymphocytes Percent Auto 22.4 20 - 40 % [facility] Monocytes Percent Auto 8.7 2 - 11 % [facility] Eosinophils Percent Auto 2.8 0 - 4 % [facility] Basophils Percent Auto 0.8 0 - 2 % [facility] NRBC Pct Auto 0.0 0.0 - 0.2 /100WBC [facility] Neutrophils Absolute Auto 2.6 2.0 - 8.3 x10*3/uL [facility] Imm Gran Abs Auto 0.01 0.00 - 0.03 X10*3/uL [facility] Lymphocytes Absolute Auto 0.9(L) 1.2 - 4.9 X10*3/uL [facility] Monocytes Absolute Auto 0.3 0.1 - 1.2 X10*3/uL [facility] Eosinophils Absolute Auto 0.1 0.0 - 0.4 X10*3/uL [facility] Basophils Absolute Auto 0.0 0.0 - 0.2 X10*3/uL [facility] NRBC Abs Auto 0.000 0.0 - 0.012 X10*3/uL [facility] 11/08/2022 10:2 5 AM EST 11/08/2022 10:25 AM EST [facility] External Provider LAB BLO OD ORDERABLES Final Result Performing Organization Address City/State/[facility] Co de Phone Number [facility] [address] [place] [address] [phone] documented in this encounter Visit Diagnoses Not on filedocumented in this encounter Care Teams Country Printer Relationship Specialty Start Date End Date Name, MD Reynold [address] [place] [phone] PCP - General Family Medicine 12/26/15 documented as of this encounter
--- OUTSIDE RECORDS SUMMARY | 2024-12-08 08:08 | XMS_ITS | Encounter Summary ---
Author Organization [employer] Address [address] [facility] [address] 7[address] [place] [address] Care Team Providers Care Finance Accounting Internship Name Role Phone Name, Reynold FAUST Primary Care Provider [phone] Encounter Details Date Type Department Care Team (Late st Contact Info) Description 11/23/2024 Orders Only [facility] MEDICINE [address] [place] [address] Janae Maldonado CNM [address] [place] [address] Social History Tobacco Use Types Packs/Day Years [...] Description 12/09/2024 10:45 AM EDT Office Visit [facility] MEDICINE [address] [place] [address] Dayron Rowell MD [address] [place] [phone] 12/27/2024 9:45 AM EDT Office Visit [address] [phone] documented as of this encounter Procedures Procedure Name Priority Date/Time Associated Diagnosis Comments HPV DNA, LOW/HIGH RISK Routine 11/23/2024 12:00 AM EST documented in this encounter Results * HPV DNA, Low/High Risk (11/23/2024 12:00 AM EST) HPV High Risk Negative Negative [facility] HPV Genotype 16 Negative Negative [facility] HPV Genotype 18 Negative Negative [facility] Comment:HPV testing performe d at [facility] (IA#[id number]), [address] [place] [address].Testing for HPV was performed using the Connor [...] 11/23/2024 11/24/2024 8:5 6 AM EST us Janae WILLIS LAB BLOOD ORDERABLES Megan l Result [facility] [address] [place] [address] [phone] documented in this encounter Visit Diagnoses Not on filedocumented in this encounter Additional Health Concerns Assessment Noted Time PHQ-9 Depression Total Score: 7 12/11/19 24 11:10 AM EDT documented as of this encounter Care Teams Finance Accounting Internship Relationship Specialty Start Date End Date Name, MD Reynold [address] [place] [phone] PCP - General Family Medicine 12/26/15 documented as of this encounter
--- OUTSIDE RECORDS SUMMARY | 2024-12-08 08:08 | XMS_ITS | Encounter Summary ---
Author Organization [employer] Address [address] [place] [address] 7 [place] [address] Care Team Providers Care President Financial Institution Name Role Phone Name, Reynold FAUST Primary Care Provider [phone] Encounter Details Date Type Department Care Team (Late st Contact Info) Description 10/07/[address] [facility] [address] [place] [address] [phone] Name, MD Reynold [address] [place] [phone] Social History Tobacco Use Types Packs/Day Years [...] Description 12/09/2024 10:45 AM EDT Office Visit [facility] [address] [place] [address] [phone] Dayron Rowell MD [address] [place] [address] [phone] 12/27/2024 9:45 AM EDT Office Visit [facility] [address] [place] [address] [phone] documented as of this encounter Visit Diagnoses Not on filedocumented in this encounter Care Teams President Financial Institution Relationship Specialty Start Date End Date Name, MD Reynold [address] [place] [address] PCP - General Family Medicine 12/26/15 documented as of this encounter
--- OUTSIDE RECORDS SUMMARY | 2024-12-08 08:08 | XMS_ITS | Encounter Summary ---
Author Organization [employer] Address [address] [facility] [address] 7[address] [place] [address] Care Team Providers Care Resolution Expert Name Role Phone Name, Reynold FAUST Primary Care Provider [phone] Encounter Details Date Type Department Care Team [...] Description 12/09/2024 10:45 AM EDT Office Visit [facility] [address] [place] [address] Dayron Rowell MD [address] [place] [phone] 12/27/2024 9:45 AM EDT Office Visit [address] [address] documented as of this encounter Visit Diagnoses Not on filedocumented in this encounter Additional Health Concerns Assessment Noted Time PHQ-9 Depression Total Score: 7 12/11/19 24 11:10 AM EDT documented as of this encounter Care Teams Resolution Expert Relationship Specialty Start Date End Date Name, MD Reynold [address] [place] [phone] PCP - General Family Medicine 12/26/15 documented as of this encounter
--- OUTSIDE RECORDS SUMMARY | 2024-12-08 08:08 | XMS_ITS | Encounter Summary ---
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 TC to pt, no answer. L/M requesting she call to reschedule her SHAPER SET UP OPERATOR RV she cancelled. documented in this encounter Plan of Treatment Upcoming Encounters Date Type Department Care Team (Late st Contact Info) Description 12/09/2024 10:45 AM EDT Office Visit [address] [address] Dayron Rowell MD [address] [place] [address] 12/27/2024 9:45 AM EDT Office Visit [address] [address] documented as of this encounter Visit Diagnoses Diagnosis Chronic pain syndrome documented in this encounter Care Teams Python Engineer Relationship Specialty Start Date End Date Name, MD Reynold [address] [place] [phone] PCP - General Family Medicine 12/26/15 documented as of this encounter
--- OUTSIDE RECORDS SUMMARY | 2024-12-08 08:08 | XMS_ITS | Encounter Summary ---
Author Organization [employer] Address [address] [facility] 7t [place] [address] Care Team Providers Care Band Leader Name Role Phone Name, Reynold FAUST Primary Care Provider [phone] Reason for Visit * Reason Onset Date Comments New Med Request 2024 Encounter Details Date Type Department Care Team ([facility] st Contact Info) Description 2024 Telephone [facility] MEDICINE [address] [place] [address] Name, MD Reynold [address] [place] [address] New Med Request Social History Tobacco Use [...] T/C to pt. For below message through [employer] interpreters id - [id number], pt. Verbally greed and understood. * Telephone [...] Upcoming Encounters Date Type Department Care Team ([facility] st Contact Info) Description 12/09/2024 10:45 AM EDT Office Visit [facility] MEDICINE [address] [place] [address] Dayron Rowell MD [address] [place] [phone] 12/27/2024 9:45 AM EDT Office Visit [facility] MEDICINE [address] [place] [phone] documented as of this encounter Visit Diagnoses Not on filedocumented in this encounter Additional Health Concerns Assessment Noted Time PHQ-9 Depression Total Score: 7 12/11/19 24 11:10 AM EDT documented as of this encounter Care Teams Band Leader Relationship Specialty Start Date End Date Name, MD Reynold [address] [place] [phone] PCP - General Family Medicine 12/26/15 documented as of this encounter
--- OUTSIDE RECORDS SUMMARY | 2024-12-08 08:08 | XMS_ITS | Encounter Summary ---
Author Organization [employer] Address [address] [facility] 7t [place] [address] Care Team Providers Care Torch Shearer Name Role Phone Name, Reynold FAUST Primary Care Provider [phone] Reason for Visit * Reason Comments Med Refill Encounter Details Date Type Department Care Team ([facility] Contact Info) Description 12/22/2022 Refill [facility] MED & PEDS [address] [place] [address] Name, MD Reynold [address] [place] [address] Rash Social History Tobacco Use Types Packs/Day [...] Upcoming Encounters Date Type Department Care Team ([facility] Contact Info) Description 12/09/2024 10:45 AM EDT Office Visit [facility] MEDICINE [address] [place] [phone] Dayron Rowell MD [address] [place] [address] 12/27/2024 9:45 AM EDT Office Visit [facility] MEDICINE [address] [place] [address] documented as of this encounter Visit Diagnoses Diagnosis Rash Rash and other nonspecific skin eruption documented in this encounter Care Teams Torch Shearer Relationship Specialty Start Date End Date Name, MD Reynold [address] [place] [phone] PCP - General Family Medicine 12/26/15 documented as of this encounter
--- OUTSIDE RECORDS SUMMARY | 2024-12-08 08:08 | XMS_ITS | Encounter Summary ---
Author Organization [employer] Address [address] 7[address] [place] [address] Care Team Providers Care Baler Operator Name Role Phone Name, Reynold FAUST Primary Care Provider [phone] Encounter Details Date Type Department Care Team [...] Description 12/09/2024 10:45 AM EDT Office Visit [facility] MEDICINE [address] [place] [address] Dayron Rowell MD [address] [place] [phone] 12/27/2024 9:45 AM EDT Office Visit [address] [address] documented as of this encounter Visit Diagnoses Not on filedocumented in this encounter Additional Health Concerns Assessment Noted Time PHQ-9 Depression Total Score: 7 12/11/19 24 11:10 AM EDT documented as of this encounter Care Teams Baler Operator Relationship Specialty Start Date End Date Name, MD Reynold [address] [place] [phone] PCP - General Family Medicine 12/26/15 documented as of this encounter
--- OUTSIDE RECORDS SUMMARY | 2024-12-08 08:08 | XMS_ITS | Encounter Summary ---
Author Organization [employer] Address [address] [facility] 7 [place] [address] Care Team Providers Care Materials Engineering Technician Name Role Phone Name, Reynold FAUST Primary Care Provider [phone] Reason for Visit * Reason Comments Dentures Encounter Details Date Type Department Care Team ([facility] st Contact Info) Description 11/11/2024 1:30 PM EST Office Visit [facility] ADULT DENTAL [address] [place] [address] Elisabet Greer, DDS [address] [place] [address] Poorly fitting dentures (Primary Dx) Social History [...] AND EXTENSIVE TREATMENT PLANNING (Completed) Service provider: Elisabet Greer DDS Billing provider: Elisabet Greer DDS Patient ID: Cece Maurer is a 59 y.o. female. Time Out: No data recorded Location: [facility] Tooth: Mandible Procedure: limited exam Verified the above with patient, anesthesia assistant, and provider. Confirmed via patient's chart, intraorally and by radiographs. Pediatric Audiologist: not applicable Chief Complaint Patient presents with [...] four pairs designed at another dental facility, [facility], but ultimately decided to seek a new [...] up as necessary. Dismissed in good condition. Deblocker: Paula Atkins Dentist: Elisabet Greer DDS documented in this encounter Plan of Treatment Upcoming Encounters Date Type Department Care Team (Late st Contact Info) Description 12/09/2024 10:45 AM EDT Office Visit [facility] [place] [address] [place] [address] 12/27/2024 9:45 AM EDT Office Visit [facility] [place] [place] [address] documented as of this encounter Procedures Procedure [...] documented as of this encounter Care Teams Materials Engineering Technician Relationship Specialty Start Date End Date [place] [address] PCP - General Family Medicine 12/26/15 documented as of this encounter
--- OUTSIDE RECORDS SUMMARY | 2024-12-08 08:08 | XMS_ITS | Encounter Summary ---
Author Organization [employer] Address [address] [facility] 7 [place] [address] Care Team Providers Care Early Morning Name Role Phone Name, Reynold FAUST Primary Care Provider [phone] Reason for Visit * Reason Comments Follow-up Encounter Details Date Type Department Care Team ([facility] st Contact Info) Description 11/16/2024 2:30 PM EST Office Visit [facility] MEDICINE [address] [place], [place] [phone] Name, MD Reynold [address] [place] [address] Rheumatoid arthritis involving right shoulder with positive [...] 15:39 11/16/24 15:40 Color, UA Yellow Specific [place], UA 1.025 pH, UA 6.0 Ketones, UA Negative Protein, UA Negative Nitrite, UA Negative, None Detected Negative RBC, UA Negative, None Detected Positive ! Clarity, UA Clear Glucose, UA Negative Leukocytes, UA Negative, Rare, Trace Negative Bilirubin UA Negative Urobilinogen, UA 0.2 Influenza A Negative, Indeterminate Negative Influenza B Negative, Indeterminate Negative QC Media Lot # [id number] Rapid COVID Ag Negative Appearance, UA yellow [...] involving right shoulder with positive rheumatoid factor ([facility]) Comments: I explained to the patient a lot of her symptoms have to do with untreated rheumatoid arthritis. This explains her fatigue, joint pains, occasional ankle swelling. I encouraged her to contact her entry specialists to discuss disease modifying therapy. I prescribed [...] today. She has been for referral to assembling fabricator and I agreed. Prediabetes Comments: We discussed [...] Description 12/09/2024 10:45 AM EDT Office Visit [facility] MEDICINE [address] [place] [address] Dayron Rowell MD [address] [place] [address] 12/27/2024 9:45 AM EDT Office Visit [facility] MEDICINE [address] [place] [address] documented as of this encounter Procedures Procedure [...] encounter Results * POCT Rapid Influenza B ASCECNIO ID NOW (11/16/2024 3:40 PM EST) Influenza B Negative Negative, Indeterminate [facility] QC Media Lot # [id number] [facility] Lot# Expiration Date 83 [facility] Swab 11/16/2024 3:40 PM EST us Reynold Crowell MD POINT OF CARE TEST ENTER/EDIT OR DERABLES Final Result Performing Organization Address [facility] Co de Phone Number [facility] [address] [place] [phone] * POCT Rapid Influenza A ASCENCIO ID NOW (11/16/2024 3:40 PM EST) Influenza A Negative Negative, Indeterminate [facility] QC Media Lot # [id number] [facility] Lot# Expiration Date 93 [facility] Swab 11/16/2024 3:40 PM EST Reynold Crowell MD POINT OF CARE TEST ENTER/EDIT OR DERABLES Final Result Performing Organization Address [facility] Co de Phone Number [facility] [address] [place] [phone] * POCT Rapid Covid-19 BinaxNOW (11/16/2024 3:39 PM EST) Rapid COVID Ag Negative QC Media Lot # [id number] Lot# Expiration Date Nares 11/16/2024 3:39 PM EST Result [facility] Reynold Crowell MD POINT OF CARE TEST [...] Media Lot # [id number] Lot# Expiration Date 825 Urine 11/16/2024 3:38 PM EST Reynold Crowell MD POINT OF CARE TEST ENTER/EDIT OR DERABLES Final Result * (ABNORMAL) POCT HGB A1C (11/16/2024 2:28 PM EST) Hemoglobin A1C 6.2(A) 4.0 - 6.0 % QC Media Lot # [id number] Lot# Expiration Date Blood 11/16/2024 2:28 PM EST Reynold Crowell MD POINT OF CARE TEST ENTER/EDIT OR DERABLES Final Result * POCT Glucose (11/16/2024 2:28 PM EST) Glucose Blood, POC 90 60 - 200 mg/dL QC Media Lot # [id number] Lot# Expiration Date [id number] Blood Capillary blood specimen / Unknown 11/16/2024 2:28 PM EST Reynold Crowell MD POINT OF CARE TEST ENTER/EDIT OR DERABLES Final Result documented in this encounter Visit Diagnoses Diagnosis 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 ([facility] Primary Acute sore throat Dysuria Prediabetes Other abnormal glucose Essential hypertension Unspecified essential hypertension documented in this encounter Additional Health Concerns Assessment Noted Time PHQ-9 Depression Total Score: 7 12/11/19 24 11:10 AM EDT documented as of this encounter Care Teams Early Morning Relationship Specialty Start Date End Date Name, MD Reynold [address] [place] [address] PCP - General Family Medicine 12/26/15 documented as of this encounter
--- OUTSIDE RECORDS SUMMARY | 2024-12-08 08:08 | XMS_ITS | Encounter Summary ---
Author Organization [employer] Address [address] [facility] 7t [place] [address] Care Team Providers Care Gmat Instructor Name Role Phone Name, Reynold FAUST Primary Care Provider [phone] Reason for Visit * Reason Comments Dental Exam Encounter Details Date Type Department Care Team ([facility] st Contact Info) Description 12/02/2024 8:30 AM EDT Office Visit [facility] ADULT DENTAL [address] [place] [address] Elisabet Greer, DDS [address] [place] [address] Social History Tobacco Use Types Packs/Day Years [...] Progress Notes * Elisabet Greer DDS - 12/02/2024 8:30 AM EDT Cece Owens in office because she was referred to prosthodontic specialist for a design ofa lower RPD. Pt does not have coverage for this office and would like to continue treatment. As explained previously to the patient, her case might need to be seen by specialist- field marketing representative- since the scope in this practice is limited. Patient referred to [facility] where they have a prosthodontics and they may be able to help her further. Pt agreed in contacting and following up with them documented in this encounter Plan of Treatment Upcoming Encounters Date Type Department Care Team (Late st Contact Info) Description 12/09/2024 10:45 AM EDT Office Visit [facility] MEDICINE [address] [place] [address] Dayron Rowell MD [address] [place] [address] 12/27/2024 9:45 AM EDT Office Visit [facility] MEDICINE [address] [place] [address] documented as of this encounter Procedures Procedure Name Priority Date/Time Associated Diagnosis Comments NO CHARGE PROCEDURE Routine 12/02/2024 8:30 AM EDT documented in this encounter Visit Diagnoses Not on filedocumented in this encounter Additional Health Concerns Assessment Noted Time PHQ-9 Depression Total Score: 7 12/11/19 24 11:10 AM EDT documented as of this encounter Care Teams Gmat Instructor Relationship Specialty Start Date End Date Name, MD Reynold [address] [place] [address] PCP - General Family Medicine 12/26/15 documented as of this encounter
--- OUTSIDE RECORDS SUMMARY | 2024-12-08 08:08 | XMS_ITS | Encounter Summary ---
Author Organization [employer] Address [address] [facility] 7t [place] [address] Care Team Providers Care Bradley Linebacker Crewmember Name Role Phone Name, Reynold FAUST Primary Care Provider [phone] Reason for Visit * Reason Onset Date Comments partial adjustment made elsewhere 11/04/2024 Encounter Details Date Type Department Care Team ([facility] st Contact Info) Description 11/04/2024 Telephone [facility] ADULT DENTAL [address] [place] [address] SolorzanoElisabet Reyes, DDS [address] [place] [address] partial adjustment made elsewhere Social History Tobacco [...] fashioned by our clinic. DR Luis carries [facility] for insurance and we accept [employer] [facility] insurance in our facilities documented in this encounter Plan of Treatment Upcoming Encounters Date Type Department Care Team (Late st Contact Info) Description 12/09/2024 10:45 AM EDT Office Visit [facility] MEDICINE [address] [place] [address] Dayron Rowell MD [address] [place] [address] 12/27/2024 9:45 AM EDT Office Visit [facility] MEDICINE [address] [place] [address] documented as of this encounter Visit Diagnoses Not on filedocumented in this encounter Additional Health Concerns Assessment Noted Time PHQ-9 Depression Total Score: 7 12/11/19 24 11:10 AM EDT documented as of this encounter Care Teams Bradley Linebacker Crewmember Relationship Specialty Start Date End Date Name, MD Reynold [address] [place] [address] PCP - General Family Medicine 12/26/15 documented as of this encounter
--- OUTSIDE RECORDS SUMMARY | 2024-12-08 08:08 | XMS_ITS | Encounter Summary ---
Author Organization [employer] Address [address] [place] [address] 7 [place] [address] Care Team Providers Care Non Destructive Testing Technician Name Role Phone Name, Reynold FAUST Primary Care Provider [phone] Encounter Details Date Type Department Care Team (Late st Contact Info) Description 11/11/2022 Orders Only [facility] MEDICINE [address] [place] [address] [phone] Valeria Heredia LPN Social History Tobacco Use [...] Description 12/09/2024 10:45 AM EDT Office Visit [address] [address] Dayron Rowell MD [address] [place] [address] 12/27/2024 9:45 AM EDT Office Visit [address] [address] documented as of this encounter Procedures Procedure Name Priority Date/Time Associated Diagnosis Comments XR CHEST 2 VIEWS Routine 11/28/2022 4:19 PM EST documented in this encounter Results * XR Chest 2 Views (11/28/2022 4:19 PM EST) Anatomical Region Laterality Modality Chest Radiographic Milla ging 11/28/2022 4:19 PM EST Narrative 11/29/2022 12:42 PM EST ? [facility] ?[address] ?[place] [address] ?XRay Report ? Signed ? Patient: Isaías Maurer,Cece ?MR#: [id number] ?? [id number] ? : 1965 ?Acct:[id number] ? Age/Sex: 57 / F ?ADM Date: 11/28/22 ? Loc: HO.XRAY ? Attending Dr: Reynold Crowell MD ? Ordering Physician: Reynold Crowell MD ?? Date of Service: 11/28/22 ?? Procedure(s): XR chest 2V ?? Accession Number(s): [id number] ? cc: Reynold Crowell MD ? EXAMINATION: [...] 1239 ? DD/ 1619 ? TD/TT: ? Parimutuel Cashier: DELEON ? Procedure Note Douglas Isbell - 11/29/[address] [address] XRay Report Signed Patient: Cece EspinosaMR#: [id number] : 1965Acct:[id number] Age/Sex: 57 / FADM Date: 11/28/22 Loc: HO.XRAY Attending Dr: Reynold Crowell MD Ordering Physician: Reynold Crowell MD Date of Service: 11/28/22 Procedure(s): XR chest 2V Accession Number(s): [id number] cc: Reynold Crowell MD EXAMINATION: XR CHEST [...] in OV> 11/29/22 1239 DD/ 1619 TD/TT: Parimutuel Cashier: DELEON [facility] External Provider IMG XR PROCEDURES Final Result documented in this encounter Visit Diagnoses Not on filedocumented in this encounter Care Teams Non Destructive Testing Technician Relationship Specialty Start Date End Date NameReynold MD [address] [place] [address] PCP - General Family Medicine 12/26/15 documented as of this encounter
--- OUTSIDE RECORDS SUMMARY | 2024-12-08 08:08 | XMS_ITS | Encounter Summary ---
Author Organization [employer] Address [address] [facility] [address] 7t [place] [address] Care Team Providers Care Order Management Specialist Name Role Phone Name, Reynold FAUST Primary Care Provider [phone] Encounter Details Date Type Department Care Team (Latest Contact Info) Description 12/01/2024 Travel Social History Tobacco Use Types Packs/Day [...] Description 12/09/2024 10:45 AM EDT Office Visit [facility] MEDICINE [address] [place] [address] Dayron Rowell MD [address] [place] [phone] 12/27/2024 9:45 AM EDT Office Visit [address] [address] documented as of this encounter Visit Diagnoses Not on filedocumented in this encounter Additional Health Concerns Assessment Noted Time PHQ-9 Depression Total Score: 7 12/11/19 24 11:10 AM EDT documented as of this encounter Care Teams Order Management Specialist Relationship Specialty Start Date End Date Name, MD Reynold [address] [place] [address] PCP - General Family Medicine 12/26/15 documented as of this encounter
--- OUTSIDE RECORDS SUMMARY | 2024-12-08 08:08 | XMS_ITS | Encounter Summary ---
Author Organization [employer] Address [address] [facility] 7t [place] [address] Care Team Providers Care Respiratory Therapy Assistant Name Role Phone Name, Reynold FAUST Primary Care Provider [phone] Encounter Details Date Type Department Care Team (Late Contact Info) Description 03/30/2023 Orders Only [facility] [address] [place], [place] [phone] Sadia Silva LPN Social History Tobacco Use [...] Department Care Team (Late Contact Info) Description 12/09/2024 10:45 AM EDT Office Visit [facility] MEDICINE [address] [place] [address] [phone] Dayron Rowell MD [address] [place] [address] [phone] 12/27/2024 9:45 AM EDT Office Visit [facility] MEDICINE [address] [place] [address] [phone] documented as of this encounter Visit Diagnoses Not on filedocumented in this encounter Care Teams Respiratory Therapy Assistant Relationship Specialty Start Date End Date Name, MD Reynold [address] [place] [address] PCP - General Family Medicine 12/26/15 documented as of this encounter
--- OUTSIDE RECORDS SUMMARY | 2024-12-08 08:08 | XMS_ITS | Encounter Summary ---
Author Organization [employer] Address [address] [facility] 7t [place] [address] Care Team Providers Care Rate Quoting Operator Name Role Phone Name, Reynold FAUST Primary Care Provider [phone] Reason for Visit * Reason Comments Med Refill Encounter Details Date Type Department Care Team ([facility] st Contact Info) Description 06/11/2024 Refill [facility] MEDICINE [address] [place] [address] Name, MD Reynold [address] [place] [address] Essential hypertension Social History Tobacco Use Types [...] Office Visit [facility] MEDICINE [address] [place] [address] Dayron Rowell MD [address] [place] [address] 12/27/2024 9:45 AM EDT Office Visit [facility] MEDICINE [address] [place] [address] documented as of this encounter Visit Diagnoses Diagnosis Essential hypertension Unspecified essential hypertension documented in this encounter Additional Health Concerns Assessment Noted Time PHQ-9 Depression Total Score: 7 12/11/19 24 11:10 AM EDT documented as of this encounter Care Teams Rate Quoting Operator Relationship Specialty Start Date End Date Name, MD Reynold [address] [place] [address] PCP - General Family Medicine 12/26/15 documented as of this encounter
--- OUTSIDE RECORDS SUMMARY | 2024-12-08 08:08 | XMS_ITS | Encounter Summary ---
Author Organization [employer] Address [address] [place] [address] 7 [place] [address] Care Team Providers Care Resin Coater Name Role Phone Name, Reynold FAUST Primary Care Provider [phone] Reason for Visit * Reason Comments Med Refill Encounter Details Date Type Department Care Team (Late st Contact Info) Description 03/13/2023 Refill [facility] MEDICINE [address] [place] [phone] Name, MD Reynold [address] [place] [phone] Chronic cough Social History Tobacco Use Types [...] Description 12/09/2024 10:45 AM EDT Office Visit [facility] MEDICINE [address] [place] [address] [phone] Dayron Rowell MD [address] [place] [address] 12/27/2024 9:45 AM EDT Office Visit [facility] MEDICINE [address] [place] [address] documented as of this encounter Visit Diagnoses Diagnosis Chronic cough Cough documented in this encounter Care Teams Resin Coater Relationship Specialty Start Date End Date Name, MD Reynold [address] [place] [address] PCP - General Family Medicine 12/26/15 documented as of this encounter
--- OUTSIDE RECORDS SUMMARY | 2024-12-08 08:08 | XMS_ITS | Encounter Summary ---
Author Organization [employer] Address [address] [facility] 7t [place] [address] Care Team Providers Care Radar Tester Name Role Phone Name, Reynold FAUST Primary Care Provider [phone] Reason for Visit * Reason Onset Date Comments Nurse Triage 08/16/2024 Encounter Details Date Type Department Care Team ([facility] st Contact Info) Description 08/16/2024 Telephone [facility] [address] [place] [address] Name, MD Reynold [address] [place] [address] Nurse Triage Social History Tobacco Use Types [...] transportation but, will call to come to [facility] for Thursday evening. Pt agrees with [...] 12/09/2024 10:45 AM EDT Office Visit [facility] [address] [place] [address] Dayron Rowell MD [address] [place] [address] 12/27/2024 9:45 AM EDT Office Visit [address] [address] documented as of this encounter Visit Diagnoses Not on filedocumented in this encounter Additional Health Concerns Assessment Noted Time PHQ-9 Depression Total Score: 7 12/11/19 24 11:10 AM EDT documented as of this encounter Care Teams Radar Tester Relationship Specialty Start Date End Date Name, MD Reynold [address] [place] [address] PCP - General Family Medicine 12/26/15 documented as of this encounter
--- OUTSIDE RECORDS SUMMARY | 2024-12-08 08:08 | XMS_ITS | Encounter Summary ---
Author Organization [employer] Address [address] [place] [address] 7 [place] [address] Care Team Providers Care Product Safety Coordinator Name Role Phone Name, Reynold FAUST Primary Care Provider [phone] Reason for Visit * Reason Comments Med Refill Encounter Details Date Type Department Care Team (Late st Contact Info) Description 04/02/2023 Refill [facility] MEDICINE [address] [place] [address] Name, MD Reynold [address] [place] [address] Chronic cough Social History Tobacco Use Types [...] Description 12/09/2024 10:45 AM EDT Office Visit [facility] MEDICINE [address] [place] [address] [phone] Dayron Rowell MD [address] [place] [address] 12/27/2024 9:45 AM EDT Office Visit [facility] MEDICINE [address] [place] [address] documented as of this encounter Visit Diagnoses Diagnosis Chronic cough Cough documented in this encounter Care Teams Product Safety Coordinator Relationship Specialty Start Date End Date Name, MD Reynold [address] [place] [address] PCP - General Family Medicine 12/26/15 documented as of this encounter
--- OUTSIDE RECORDS SUMMARY | 2024-12-08 08:08 | XMS_ITS | Encounter Summary ---
Author Organization [employer] Address [address] [place] [address] 7 [place] [address] Care Team Providers Care Station Installer And Repairer Name Role Phone Name, Reynold FAUST Primary Care Provider [phone] Reason for Visit * Reason Comments Med Refill Encounter Details Date Type Department Care Team (Late st Contact Info) Description 04/06/2023 Refill [facility] MEDICINE [address] [place] [address] [phone] Name, MD Reynold [address] [place] [address] Chronic cough Social History Tobacco Use Types [...] Description 12/09/2024 10:45 AM EDT Office Visit [facility] MEDICINE [address] [place] [address] [phone] Dayron Rowell MD [address] [place] [address] [phone] 12/27/2024 9:45 AM EDT Office Visit [facility] MEDICINE [address] [place] [address] documented as of this encounter Visit Diagnoses Diagnosis Chronic cough Cough documented in this encounter Care Teams Station Installer And Repairer Relationship Specialty Start Date End Date Name, MD Reynold [address] [place] [address] PCP - General Family Medicine 12/26/15 documented as of this encounter
--- OUTSIDE RECORDS SUMMARY | 2024-12-08 08:08 | XMS_ITS | Encounter Summary ---
Author Organization [employer] Address [address] [place] [address] 7 [place] [address] Care Team Providers Care Rodding Anode Worker Name Role Phone Name, Reynold FAUST Primary Care Provider [phone] Encounter Details Date Type Department Care Team (Latest Contact Info) Description 10/10/2020 Abstract [facility] CONVERSIONS Dental, Provider, DDS Social [...] Description 12/09/2024 10:45 AM EDT Office Visit [facility] MEDICINE [address] [place] [phone] Dayron Rowell MD [address] [place] [address] 12/27/2024 9:45 AM EDT Office Visit [facility] MEDICINE [address] [place] [address] documented as of this encounter Visit Diagnoses Not on filedocumented in this encounter Care Teams Rodding Anode Worker Relationship Specialty Start Date End Date Name, MD Reynold [address] [place] [address] PCP - General Family Medicine 12/26/15 documented as of this encounter
[2024-12-08] MEDS: Sorbitol/Mannit/Xanth Imaging 500 ML LIQUID 1500 ML PO (10:05)
[2024-12-08] MEDS: iohexoL 350 MG/ML 100 ML INFUS..BTL IV (10:05)
[2024-12-09 16:52] LABS: Creatinine POC 0.8 mg/dL (0.5-1.4); GFR POC > 60
== END 2024-12-08 08:04 | disposition home or self-care (01) ==
LOC: HO.CT 08:03
PROVIDERS: PCP Internal Medicine Geriatric Medicine; Visit Provider Internal Medicine Gastroenterology
DX: R10.33 Periumbilical pain (principal)
CPT/HCPCS: 74177; Q9967

== ENCOUNTER → 2024-12-08 08:05 | Outpatient (BNV) | payer OTHER, SELFPAY | PROVIDERS: PCP Internal Medicine Geriatric Medicine; Visit Provider Radiology Diagnostic Radiology | DX: K57.30 Diverticulosis of large intestine without perforation or abscess without bleeding (principal) | CPT/HCPCS: 74177 ==

== ENCOUNTER 2024-12-09 10:12 | Outpatient (REF) | payer OTHER, SELFPAY ==
[2024-12-09 11:39] LABS: Appearance Urine Clear; Color Urine Yellow; Glucose Urine UA Negative (Negative); Leukocyte Esterase Urine Negative (Negative); Nitrite Urine Negative (Negative); Specific Gravity - Urine 1.025 (1.005-1.025); Urine Blood Negative (Negative); Urine Ketones Trace mg/dL (Negative); Urine Protein Trace mg/dL (Neg-Trace)
[2024-12-09 11:43] LABS: Bacteria Urine None Seen (None Seen); RBC Urine 0-2 /HPF (0-2); WBC Urine 0-5 /HPF (0-5)
== END 2024-12-09 10:13 | disposition home or self-care (01) ==
LOC: HO.HHCL 10:12
PROVIDERS: Visit Provider Advanced Practice Midwife
DX: R30.0 Dysuria (principal)
CPT/HCPCS: 81001

== ENCOUNTER 2024-12-16 13:20 | Outpatient (REF) | payer OTHER, SELFPAY ==
--- NOTE | ~2024-12-16 | US_ITS ---
EXAMINATION: US PELVIS TRANSABDOMINAL AND TRANSVAGINAL HISTORY: possible post menopausal bleeding COMPARISON: Correlation is made with a contrast-enhanced CT of the pelvis dated 12/08/2024. TECHNIQUE: Transabdominal and endovaginal real-time 2D wynne-scale ultrasound was performed. FINDINGS: Uterus: The uterus is normal in size, measuring 6.6 x 2.9 x 3.6 cm. Myometrium has a normal echotexture. There is a 10 x 9 x 9 mm anterior uterine fibroid. Endometrium: The endometrial stripe measures 3 mm in thickness. There is debris in the endometrial cavity. Right ovary: The right ovary is not definitely identified. Left ovary: The left ovary is not identified. Pelvic fluid: none. US/US pelvic and transvaginal IMPRESSION: 10 mm anterior uterine fibroid. Debris in the endometrial cavity. Electronically signed by: Darren Wagoner MD 12/16/2024 02:13 PM EDT
== END 2024-12-16 13:21 | disposition home or self-care (01) ==
LOC: HO.US 13:20
PROVIDERS: PCP Internal Medicine Geriatric Medicine; Visit Provider Advanced Practice Midwife
DX: N95.0 Postmenopausal bleeding (principal)
CPT/HCPCS: 76830; 76856

== ENCOUNTER → 2024-12-16 13:23 | Outpatient (BNV) | payer OTHER, SELFPAY | PROVIDERS: PCP Internal Medicine Geriatric Medicine; Visit Provider Radiology Diagnostic Radiology | DX: N95.0 Postmenopausal bleeding (principal) | CPT/HCPCS: 76830; 76856 ==

== ENCOUNTER 2025-01-16 11:51 | Outpatient (AMB) | payer OTHER, SELFPAY ==
--- NOTE | 2025-01-16 12:04 | MHC.OFFVIS ---
Vital Signs 01/16/25 12:11 Height 4 ft 11 in Weight 145 lb BMI 29.3 Intake Visit Reasons: abnormal endometrial ultrasound Flotation Tender: Flotation Tender Present (Tyra) Accompanied by: Daughter Allergies folic acid Adverse Reaction (Unknown, Verified 01/16/25 12:09) Rash on neck Is last menstrual period known: No Post menopausal: Yes Patient : No HPI Comments Details: Presenting referred from [facility] regarding abnormal pelvic ultrasound. The patient had an episode of the cramping an ultrasound was ordered which showed the following 12/16/2024 pelvic ultrasound showed the following: Uterus: The uterus is normal in size, measuring 6.6 x 2.9 x 3.6 cm. Myometrium has a normal echotexture. There is a 10 x 9 x 9 mm anterior uterine fibroid. Endometrium: The endometrial stripe measures 3 mm in thickness. There is debris in the endometrial cavity. Right ovary: The right ovary is not definitely identified. Left ovary: The left ovary is not identified. Pelvic fluid: none. 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 Surgical History History of eye surgery History of breast surgery (~11/11/19) History of esophagogastroduodenoscopy (EGD) H/O tubal ligation History of lumpectomy of both breasts (~10/03/19) Family History Mother HTN (hypertension) Father Diabetes Daughter Fibromyoma Maternal Aunt Cervical cancer Social History Household Members: None Housing: Apartment Are you a primary wound care specialist to a significant other at home: No Do you presently have visiting nurse or other home services: Yes ([facility]) Alcohol intake: never Patient Tobacco Use Status: Former Tobacco user Patient : No service: No Current occupational status: unemployed Female Reproductive History Menstrual Age of Menarche: 10 control method: none Age of menopause: 2 Premature: 3 Number of Living Children: 3 History of abnormal pap smear: No Date of Mammogram: 11/10/24 Date of last Bone Density Screenin02/19/24 Review of Systems Const All systems reviewed & are unremarkable except as noted in HPI and below Physical Exam Vital Signs: BMI result Body Mass Index 29.3 General: Yes no CVA tenderness External Female Exam: normal external appearance and normal appearance of the urethra Speculum Exam - Vagina: normal appearance of the vagina, normal palpation, no lesions and no masses Speculum Exam - Cervix: normal appearance of the cervix, normal palpation, no lesions, no masses and nontender Bimanual exam- vagina & uterus: normal bimanual exam, normal palpation, uterine size normal, normal palpation, uterine shape normal, No Cervical tenderness present and non-tender Bimanual Exam- Adnexa, other: normal adnexae Back/Spine/Pelvis Back: no CVA tenderness Assessment & Plan Assessment & Plan (1) Uterine myoma: Code(s): D25.9 - Leiomyoma of uterus, unspecified Category: Medical Plan: Discussed with the patient the findings on pelvic ultrasound & the risk of myosarcoma; in addition reviewed with the patient that malignancy and pre malignancy cannot be ruled out without hysterectomy for pathological evaluation ; furthermore, explained to the patient the limitation of pelvic ultrasound and endometrial biopsy in the setting. Discussed with the patient the options of treatment including expectant management versus hysterectomy; the pros and cons, risks benefits of each approach were discussed with the patient including the fact that in cases of myosarcoma, surgical treatment can lead to early diagnosis and positively affects the prognosis; after further discussion, the patient decided to proceed with expectant management. Will repeat pelvic ultrasound periodically. Instructions given to patient to call in case any of the following occurs: pressure symptoms, abnormal uterine bleeding, pelvic pain; and to schedule a six-months pelvic ultrasound (order placed) and a follow-up appointment . All questions answered, the patient verbalized understanding and agreed with the plan . (2) Fluid in endometrial cavity: Code(s): N85.9 - Noninflammatory disorder of uterus, unspecified Category: Medical Plan: Discussed with the patient the finding of fluid in the endometrial cavity, in spite of no vaginal bleeding the concern is the endometrial fluid visualized on ultrasound in case of cervical stenosis might be bleeding into the endometrial cavity and the blood and/or tissue was are unable to pass through the cervical os. Endometrial sampling in postmenopausal bleeding with endometrial fluid is indicated in case endometrial thickness is above 4 mm, however in cases with thin endometrial stripe, 4 mm and below, without any focal lesions, is a reassuring finding with a high negative predictive value for endometrial pathology including endometrial hyperplasia and/or malignancy or polyps. Instructions given to patient to call in case of vaginal bleeding will proceed with endometrial sampling to rule out endometrial pathology Orders: Orders US pelvic and transvaginal 6 Months D25.9 - Leiomyoma of uterus, unspecified Coding Level of Care Code New Pt Level 3 (42745) Diagnoses Uterine myoma D25.9 Fluid in endometrial cavity N85.9
[2025-01-16 12:11] VITALS: BMI 29.3
--- OUTSIDE RECORDS SUMMARY | 2025-01-16 14:10 | XMS_ITS | Encounter Summary ---
Author Organization [employer] Address [address] [facility] 7t [place] [address] Care Team Providers Care Foil Spinner Name Role Phone Name, Reynold FAUST Primary Care Provider Reason for Visit * Reason Comments Med Refill Encounter Details Date Type Department Care Team ([facility] st Contact Info) Description 01/15/[address] [facility] [address] [place] [address] Humaira Ng NP [address] [place] [address] Chronic pain syndrome Social History Tobacco Use [...] is your housing situation today? I have juliteh hook 12/11/[address] you [...] encounter Miscellaneous Notes * Telephone Encounter - Laya Bradley RN - 01/16/2025 11:02 AM EDT [employer] checked by sports writer on 01/16/25. Pt picked up a 28 day supply of traMADol (Ultram) 50 MG tablet on 12/17/24. Pt due for refill. Medication pended to PCP for review. Message forwarded to PCP to review and advise. documented in this encounter Plan of Treatment Upcoming Encounters Date Type Department Care Team (Late st Contact Info) Description 01/31/2025 9:45 AM EDT Office Visit [facility] [address] [place] [phone] 02/03/2025 9:00 AM EDT Office Visit [facility] [address] [place] [address] Dayron Rowell MD [address] [place] [address] 03/29/2025 9:30 AM EDT Office Visit [address] [address] Name, MD Reynold [address] [place] [address] documented as of this encounter Visit Diagnoses Diagnosis Chronic pain syndrome documented in this encounter Additional Health Concerns Assessment Noted Time PHQ-9 Depression Total Score: 7 12/11/19 24 11:10 AM EDT documented as of this encounter Care Teams Foil Spinner Relationship Specialty Start Date End Date Name, MD Reynold [address] [place] [address] PCP - General Family Medicine 12/26/15 documented as of this encounter
--- OUTSIDE RECORDS SUMMARY | 2025-01-16 14:10 | XMS_ITS | Encounter Summary ---
Author Organization [employer] Address [address] [facility] 7t [place] [address] Care Team Providers Care Manager Of Patient Name Role Phone Name, Reynold FAUST Primary Care Provider [phone] Reason for Visit * Reason Onset Date Comments Med Refill Reschedule TEST HOLE DRILLER RV she cancelled 02/02/23 06/05/20 Encounter Details Date Type Department Care Team (Late st Contact Info) Description 06/05/2023 Refill [facility] & [facility] [address] [place] [address] Name, MD Reynold [address] [place] [address] Chronic pain syndrome Social History Tobacco Use [...] 06/08/2023 10:55 AM EDT Pt was cancelled TEST HOLE DRILLER RV on 02/02/23 and has not rescheduled. TC to pt, no answer. L/M requesting she call to reschedule her TEST HOLE DRILLER RV she cancelled. documented in this encounter Plan of Treatment Upcoming Encounters Date Type Department Care Team (Late st Contact Info) Description 01/31/2025 9:45 AM EDT Office Visit [address] [address] 02/03/2025 9:00 AM EDT Office Visit [address] [address] Dayron Rowell MD [address] [place] [address] 03/29/2025 9:30 AM EDT Office Visit [address] [address] Name, MD Reynold [address] [place] [address] documented as of this encounter Visit Diagnoses Diagnosis Chronic pain syndrome documented in this encounter Care Teams Manager Of Patient Relationship Specialty Start Date End Date Name, MD Reynold [address] [place] [address] PCP - General Family Medicine 12/26/15 documented as of this encounter
--- OUTSIDE RECORDS SUMMARY | 2025-01-16 14:10 | XMS_ITS | Encounter Summary ---
Author Organization [employer] Address [address] [facility] 7t [place] [address] Care Team Providers Care Accounting Recruiter Name Role Phone Name, Reynold FAUST Primary Care Provider [phone] Reason for Visit * Reason Comments Med Refill Encounter Details Date Type Department Care Team ([facility] st Contact Info) Description 01/16/2025 Refill [facility] [address] [place] [address] Munira Kaiser MD [address] [place] [address] Rash Social History Tobacco Use Types Packs/Day [...] Description 01/31/2025 9:45 AM EDT Office Visit [address] [address] 02/03/2025 9:00 AM EDT Office Visit [address] [address] Dayron Rowell MD [address] [place] [address] 03/29/2025 9:30 AM EDT Office Visit [address] [address] Name, MD Reyonld [address] [place] [address] documented as of this encounter Visit Diagnoses Diagnosis Rash Rash and other nonspecific skin eruption documented in this encounter Additional Health Concerns Assessment Noted Time PHQ-9 Depression Total Score: 7 12/11/19 24 11:10 AM EDT documented as of this encounter Care Teams Accounting Recruiter Relationship Specialty Start Date End Date NameReynold MD [address] [place] [phone] PCP - General Family Medicine 12/26/15 documented as of this encounter
--- OUTSIDE RECORDS SUMMARY | 2025-01-16 14:10 | XMS_ITS | Encounter Summary ---
Author Organization [employer] Address [address] [place] [address] 7 [place] [address] Care Team Providers Care Bioinformatics Assistant Name Role Phone Name, Reynold FAUST Primary Care Provider Reason for Visit * Reason Comments Med Refill Encounter Details Date Type Department Care Team (Late st Contact Info) Description 03/11/2023 Refill [facility] [address] [place] [address] Name, MD Reynold [address] [place] [address] Chronic cough Social History Tobacco Use Types [...] Description 01/31/2025 9:45 AM EDT Office Visit [facility] [address] [place] [address] [phone] 02/03/2025 9:00 AM EDT Office Visit [facility] [address] [place] [address] [phone] Dayron Rowell MD [address] [place] [address] [phone] 03/29/2025 9:30 AM EDT Office Visit [facility] [address] [place], [place] [phone] Name, MD Reynold [address] [place] [address] documented as of this encounter Visit Diagnoses Diagnosis Chronic cough Cough documented in this encounter Care Teams Bioinformatics Assistant Relationship Specialty Start Date End Date Name, MD Reynold [address] [place] [address] PCP - General Family Medicine 12/26/15 documented as of this encounter
--- OUTSIDE RECORDS SUMMARY | 2025-01-16 14:10 | XMS_ITS | Encounter Summary ---
Author Organization [employer] Address [address] [place] [address] 7 [place] [address] Care Team Providers Care Baby Sitter Name Role Phone Name, Reynold FAUST Primary Care Provider [phone] Reason for Visit * Reason Comments Med Refill Encounter Details Date Type Department Care Team (Late st Contact Info) Description 04/06/2023 Refill [facility] [address] [place] [address] Name, MD Reynold [address] [place] [address] Chronic cough Social History Tobacco Use Types [...] Description 01/31/2025 9:45 AM EDT Office Visit [facility] [address] [place] [address] [phone] 02/03/2025 9:00 AM EDT Office Visit [facility] [address] [place] [address] [phone] Dayron Rowell MD [address] [place] [address] [phone] 03/29/2025 9:30 AM EDT Office Visit [facility] [address] [place], [place] [phone] Name, MD Reynold [address] [place] [address] documented as of this encounter Visit Diagnoses Diagnosis Chronic cough Cough documented in this encounter Care Teams Baby Sitter Relationship Specialty Start Date End Date Name, MD Reynold [address] [place] [address] PCP - General Family Medicine 12/26/15 documented as of this encounter
--- OUTSIDE RECORDS SUMMARY | 2025-01-16 14:11 | XMS_ITS | Encounter Summary ---
Author Organization [employer] Address [address] [facility] 7t [place] [address] Care Team Providers Care Industrial Specialist Name Role Phone Name, Reynold FAUST Primary Care Provider [phone] Reason for Visit * Reason Onset Date Comments Nurse Triage 08/16/2024 Encounter Details Date Type Department Care Team ([facility] st Contact Info) Description 08/16/[address] [facility] [address] [place] [address] Name, MD Reynold [address] [place] [address] Nurse Triage Social History Tobacco Use Types [...] transportation but, will call to come to [facility] for Thursday evening. Pt agrees with disposition [...] Description 01/31/2025 9:45 AM EDT Office [address] [facility] [address] [place] [address] 02/03/2025 9:00 AM EDT Office Visit [address] [address] Dayron Rowell MD [address] [place] [phone] 03/29/2025 9:30 AM EDT Office Visit [address] [address] Name, MD Reynold [address] [place] [phone] documented as of this encounter Visit Diagnoses Not on filedocumented in this encounter Additional Health Concerns Assessment Noted Time PHQ-9 Depression Total Score: 7 12/11/19 24 11:10 AM EDT documented as of this encounter Care Teams Industrial Specialist Relationship Specialty Start Date End Date Reynold Crow[place] MD [address] [place] [phone] PCP - General Family Medicine 12/26/15 documented as of this encounter
--- OUTSIDE RECORDS SUMMARY | 2025-01-16 14:11 | XMS_ITS | Encounter Summary ---
Author Organization [employer] Address [address] [place] [address] 7 [place] [address] Care Team Providers Care Binman Name Role Phone Name, Reynold FAUST Primary Care Provider [phone] Reason for Visit * Reason Comments Med Refill Encounter Details Date Type Department Care Team (Late st Contact Info) Description 04/02/2023 Refill [facility] [address] [place] [phone] Name, MD Reynold [address] [place] [phone] Chronic cough Social History Tobacco Use Types [...] Description 01/31/2025 9:45 AM EDT Office Visit [facility] [address] [place] [address] [phone] 02/03/2025 9:00 AM EDT Office Visit [facility] [address] [place] [address] [phone] Dayron Rowell MD [address] [place] [address] [phone] 03/29/2025 9:30 AM EDT Office Visit [facility] [address] [place], [place] [phone] Name, MD Reynold [address] [place] [address] documented as of this encounter Visit Diagnoses Diagnosis Chronic cough Cough documented in this encounter Care Teams Binman Relationship Specialty Start Date End Date Name, MD Reynold [address] [place] [phone] PCP - General Family Medicine 12/26/15 documented as of this encounter
--- OUTSIDE RECORDS SUMMARY | 2025-01-16 14:11 | XMS_ITS | Encounter Summary ---
Author Organization [employer] Address [address] [facility] 7t [place] [address] Care Team Providers Care Food Production Manager Name Role Phone Name, Reynold FAUST Primary Care Provider [phone] Reason for Visit * Reason Onset Date Comments partial adjustment made elsewhere 11/04/2024 Encounter Details Date Type Department Care Team ([facility] st Contact Info) Description 11/04/2024 Telephone [facility] [address] [place] [address] SolorzanoElisabet Reyes, DDS [address] [place] [address] partial adjustment made elsewhere Social History Tobacco [...] fashioned by our clinic. DR Luis carries [facility] [place] for insurance and we accept [facility] [employer] [facility] [place] insurance in our facilities documented in this encounter Plan of Treatment Upcoming Encounters Date Type Department Care Team (Late st Contact Info) Description 01/31/2025 9:45 AM EDT Office Visit [facility] [address] [place] [address] 02/03/2025 9:00 AM EDT Office Visit [facility] [address] [place] [address] Dayron Rowell MD [address] [place] [address] 03/29/2025 9:30 AM EDT Office Visit [facility] [address] [place] [phone] Name, MD Reynold [address] [place] [address] documented as of this encounter Visit Diagnoses Not on filedocumented in this encounter Additional Health Concerns Assessment Noted Time PHQ-9 Depression Total Score: 7 12/11/19 24 11:10 AM EDT documented as of this encounter Care Teams Food Production Manager Relationship Specialty Start Date End Date Name, MD Reynold [address] [place] [address] PCP - General Family Medicine 12/26/15 documented as of this encounter
--- OUTSIDE RECORDS SUMMARY | 2025-01-16 14:11 | XMS_ITS | Encounter Summary ---
Author Organization [employer] Address [address] [facility] 7t [place] [address] Care Team Providers Care Bond Trader Name Role Phone Name, Reynold FAUST Primary Care Provider [phone] Encounter Details Date Type Department Care Team (Late Contact Info) Description 03/30/2023 Orders Only [facility] [address] [place] [address] Sadia Silva LPN Social History Tobacco Use [...] Department Care Team (Late Contact Info) Description 01/31/2025 9:45 AM EDT Office Visit [facility] [address] [place] [address] [phone] 02/03/2025 9:00 AM EDT Office Visit [facility] [address] [place] [address] [phone] Dayron Rowell MD [address] [place] [address] 03/29/2025 9:30 AM EDT Office Visit [facility] [address] [place] [address] Name, MD Reynold [address] [place] [address] documented as of this encounter Visit Diagnoses Not on filedocumented in this encounter Care Teams Bond Trader Relationship Specialty Start Date End Date Name, MD Reynold [address] [place] [address] PCP - General Family Medicine 12/26/15 documented as of this encounter
--- OUTSIDE RECORDS SUMMARY | 2025-01-16 14:11 | XMS_ITS | Encounter Summary ---
Author Organization [employer] Address [address] [place] [address] 7 [place] [address] Care Team Providers Care Software Sales Representative Name Role Phone Name, Reynold FAUST Primary Care Provider [phone] Encounter Details Date Type Department Care Team (Late st Contact Info) Description 10/07/2023 Abstract [facility] MED[facility] [address] [place] [phone] Name, MD Reynold [address] [place] [phone] Social History Tobacco Use Types Packs/Day Years [...] Description 01/31/2025 9:45 AM EDT Office Visit [facility] [address] [place] [address] [phone] 02/03/2025 9:00 AM EDT Office Visit [address] [address] Dayron Rowell MD [address] [place] [address] [phone] 03/29/2025 9:30 AM EDT Office Visit [facility] [address] [place] [address] Name, MD Reynold [address] [place] [address] documented as of this encounter Visit Diagnoses Not on filedocumented in this encounter Care Teams Software Sales Representative Relationship Specialty Start Date End Date Name, MD Reynold [address] [place] [address] PCP - General Family Medicine 12/26/15 documented as of this encounter
--- OUTSIDE RECORDS SUMMARY | 2025-01-16 14:11 | XMS_ITS | Encounter Summary ---
Author Organization [employer] Address [address] [facility] 7t [place] [address] Care Team Providers Care Global Compensation Director Name Role Phone Name, Reynold FAUST Primary Care Provider [phone] Reason for Visit * Reason Comments Med Refill Encounter Details Date Type Department Care Team ([facility] st Contact Info) Description 06/11/2024 Refill [facility] [address] [place] [address] Name, MD Reynold [address] [place] [address] Essential hypertension Social History Tobacco Use Types [...] Description 01/31/2025 9:45 AM EDT Office Visit [address] [address] 02/03/2025 9:00 AM EDT Office Visit [address] [address] Dayron Rowell MD [address] [place] [phone] 03/29/2025 9:30 AM EDT Office Visit [address] [address] NameReynold MD [address] [place] [address] documented as of this encounter Visit Diagnoses Diagnosis Essential hypertension Unspecified essential hypertension documented in this encounter Additional Health Concerns Assessment Noted Time PHQ-9 Depression Total Score: 7 12/11/19 24 11:10 AM EDT documented as of this encounter Care Teams Global Compensation Director Relationship Specialty Start Date End Date NameReynold MD [address] [place] [phone] PCP - General Family Medicine 12/26/15 documented as of this encounter
--- OUTSIDE RECORDS SUMMARY | 2025-01-16 14:11 | XMS_ITS | Encounter Summary ---
Author Organization [employer] Address [address] [facility] 7t [place] [address] Care Team Providers Care Clay Thrower Name Role Phone Name, Reynold FAUST Primary Care Provider [phone] Encounter Details Date Type Department Care Team (Late st Contact Info) Description 12/15/2024 Orders Only [facility] [address] [place], [place] [phone] Provider, MD Mally Social History Tobacco Use Types Packs/Day Years [...] Description 01/31/2025 9:45 AM EDT Office Visit [facility] MED[facility] [address] [place] [address] 02/03/2025 9:00 AM EDT Office Visit [facility] [address] [place] [address] Dayron Rowell MD [address] [place] [address] 03/29/2025 9:30 AM EDT Office Visit [facility] [address] [place] [phone] NameReynold MD [address] [place] [address] documented as of this encounter Procedures Procedure Name Priority Date/Time Associated Diagnosis Comments DERMATOPATHOLOGY REPORT Routine 12/09/2024 9:11 AM EDT documented in this encounter Results * Dermatopathology Report (12/09/2024 9:11 AM EDT) us Historical Provider LAB BLOOD ORDERABLES Megan l Result documented in this encounter Visit Diagnoses Not on filedocumented in this encounter Additional Health Concerns Assessment Noted Time PHQ-9 Depression Total Score: 7 12/11/19 24 11:10 AM EDT documented as of this encounter Care Teams Clay Thrower Relationship Specialty Start Date End Date Reynold Crowell MD [address] [place] [phone] PCP - General Family Medicine 12/26/15 documented as of this encounter
--- OUTSIDE RECORDS SUMMARY | 2025-01-16 14:11 | XMS_ITS | Encounter Summary ---
Author Organization [employer] Address [address] [place] [address] 7 [place] [address] Care Team Providers Care Movement Assembly Final Inspector Name Role Phone Name, Reynold FAUST Primary Care Provider [phone] Reason for Visit * Reason Comments Med Refill Encounter Details Date Type Department Care Team (Late st Contact Info) Description 03/13/2023 Refill [facility] [address] [place] [phone] Name, MD Reynold [address] [place] [phone] Chronic cough Social History Tobacco Use Types [...] Description 01/31/2025 9:45 AM EDT Office Visit [facility] [address] [place] [address] [phone] 02/03/2025 9:00 AM EDT Office Visit [facility] [address] [place] [address] [phone] Dayron Rowell MD [address] [place] [address] [phone] 03/29/2025 9:30 AM EDT Office Visit [facility] [address] [place], [place] [phone] Name, MD Reynold [address] [place] [address] documented as of this encounter Visit Diagnoses Diagnosis Chronic cough Cough documented in this encounter Care Teams Movement Assembly Final Inspector Relationship Specialty Start Date End Date Name, MD Reynold [address] [place] [phone] PCP - General Family Medicine 12/26/15 documented as of this encounter
--- OUTSIDE RECORDS SUMMARY | 2025-01-16 14:11 | XMS_ITS | Encounter Summary ---
Author Organization [employer] Address [address] [place] [address] 7 [place] [address] Care Team Providers Care Metal Container Maker Name Role Phone Name, Reynold FAUST Primary Care Provider [phone] Encounter Details Date Type Department Care Team (Late st Contact Info) Description 10/13/2022 Orders Only [facility] [address] [place] [address] Sadia Silva LPN Social History Tobacco Use [...] Description 01/31/2025 9:45 AM EDT Office Visit [facility] [address] [place] [address] 02/03/2025 9:00 AM EDT Office Visit [facility] [address] [place] [address] Dayron Rowell MD [address] [place] [address] 03/29/2025 9:30 AM EDT Office Visit [facility] [address] [place] [phone] Name, MD Reynold [address] [place] [phone] documented as of this encounter Procedures Procedure Name Priority Date/Time Associated Diagnosis Comments CBC WITH AUTO DIFFERENTIAL Routine 11/08/2022 10:25 AM EST HEMOGLOBIN A1C Routine 11/08/2022 10:25 AM EST LIPID PANEL, STANDARD Routine 11/08/2022 10:25 AM EST COMPREHENSIVE METABOLIC PANEL Routine 11/08/2022 10:25 AM EST documented in this encounter Results * Lipid Panel, Standard (11/08/2022 10:25 AM EST) Triglycerides 142 mg/dL [facility] Comment:Desirable Triglyceri de: less than 150 mg/dLBorderline High Triglyceride 150-199 mg/dLHigh Triglyceride: 200-499 mg/dLVery High Triglyceride: greater than or equal to 5OO mg/dL Cholesterol 225 mg/dL [facility] Comment:Desirable Cholestero l: less than 200 mg/dLBorderline High Cholesterol: 200-239 mg/dLHigh Cholesterol: greater than 239 mg/dL LDL Cholesterol Calculated 131 mg/dl [facility] Comment:Desirable LDL: less than 100 mg/dLNear Optimal/Above Optimal LDL: 110- 129 mg/dLBorderline High LDL: 130-159 mg/dLHigh LDL: 160-189 mg/dLVery High LDL: greater than or equal to 190 mg/dL HDL Cholesterol 66 mg/dL [facility] Comment:Desirable HDL: great er than 40 mg/dL Note: This HDL assay may give artificially low results in patients with liver disease. 11/08/2022 10:2 5 AM EST 11/08/2022 10:25 AM EST us [facility] External Provider LAB BLO OD ORDERABLES Final Result [facility] [address] [place] [phone] [phone] * (ABNORMAL) Comprehensive Metabolic Panel (11/08/2022 10:25 AM EST) Pathologist [facility] Sodium 143 135 - 145 mmol/L [facility] Potassium 4.1 3.3 - 5.1 mmol/L [facility] Chloride 106 96 - 108 mmol/L [facility] Carbon Dioxide 27 22 - 29 mmol/L [facility] Anion Gap 14 12 - 20 [facility] Urea Nitrogen (BUN) 23(H) 9 - 16 mg/dL [facility] Creatinine, Serum 0.81 0.5 - 1.4 mg/dL [facility] Estimated Glomerular Filt Rate >60 [facility] Comment:NOTE: For -Am erican individuals, multiply the result by 1.210.Chronic Kidney Disease: Estimated GFR < 60 mL/min/1.96h3Zacwuv Kidney Disease: Estimated GFR < 15 mL/min/1.73m2 Glucose 107 60 - 115 mg/dL [facility] Calcium 9.5 8.4 - 10.2 mg/dL [facility] Bilirubin, Total 0.5 0.0 - 1.0 mg/dL [facility] Aspartate Amino Transferase 24 5 - 31 U/L [facility] Alanine Aminotransferase 27 0 - 31 U/L [facility] Total Protein 7.5 6.5 - 8.0 g/dL [facility] Albumin Level 4.2 3.5 - 5.0 g/dL [facility] Alkaline Phosphatase 79 39 - 117 U/L [facility] 11/08/2022 10:2 5 AM EST 11/08/2022 10:25 AM EST us [facility] External Provider LAB BLO OD ORDERABLES Final Result [facility] [address] [place] [phone] [phone] * Hemoglobin A1c (11/08/2022 10:25 AM EST) Pathologist [facility] Hemoglobin A1c 6.2 % [facility] Comment:Hemoglobin A1C Refer ence Range Adults: 4.8 - 6.0 % Non diabetic: < 6.0 % Goal: < 7.0 %Additional Action Suggested: > 8.0 %Note: Hemoglobin A1c results are invalid for patients with abnormal amounts of HbF. Blood transfusions may impact the HbA1c concentration in the patient sample. Estimated Average Glucose 131 mg/dL [facility] Comment:eAG = Estimated ave rage glucose which is %A1C expressed asaverage glucose, using the formula of the R4K-LaarlqaRnlxdfg Glucose study (ADAG), Diabetes Care, Vol.31,#8,2007 11/08/2022 10:2 5 AM EST 11/08/2022 10:25 AM EST us [facility] External Provider LAB BLO OD ORDERABLES Final Result [facility] [address] [place] [address] [phone] * (ABNORMAL) CBC auto differential (11/08/2022 10:25 AM EST) White Blood Count 3.9(L) 4.8 - 10.8 X10*3/uL [facility] Red Blood Count 4.47 4.20 - 5.50 X10*6/uL [facility] Hemoglobin 12.2 12.0 - 16.0 g/dl [facility] Hematocrit 38.1 37.0 - 47.0 % [facility] Mean Corpuscular Volume 85.2 80.0 - 98.0 fL [facility] Mean Corpuscular Hemoglobin 27.3 27.0 - 33.0 pg [facility] Mean Corpuscular HGB Conc 32.0 31.0 - 35.0 g/dl [facility] Red Cell Distribution Width 14.4 11.0 - 16.0 % [facility] Platelet Count 178 160 - 400 X10*3/uL [facility] Mean Platelet Volume 11.4 9.4 - 12.3 fL [facility] Neutrophils Percent Auto 65.0 45 - 73 % [facility] Imm Gran Pct Auto 0.3 0.0 - 0.4 % [facility] Lymphocytes Percent Auto 22.4 20 - 40 % [facility] Monocytes Percent Auto 8.7 2 - 11 % [facility] Eosinophils Percent Auto 2.8 0 - 4 % [facility] Basophils Percent Auto 0.8 0 - 2 % [facility] NRBC Pct Auto 0.0 0.0 - 0.2 /100WBC [facility] Neutrophils Absolute Auto 2.6 2.0 - 8.3 x10*3/uL [facility] Imm Gran Abs Auto 0.01 0.00 - 0.03 X10*3/uL [facility] Lymphocytes Absolute Auto 0.9(L) 1.2 - 4.9 X10*3/uL [facility] Monocytes Absolute Auto 0.3 0.1 - 1.2 X10*3/uL [facility] Eosinophils Absolute Auto 0.1 0.0 - 0.4 X10*3/uL [facility] Basophils Absolute Auto 0.0 0.0 - 0.2 X10*3/uL [facility] NRBC Abs Auto 0.000 0.0 - 0.012 X10*3/uL [facility] 11/08/2022 10:2 5 AM EST 11/08/2022 10:25 AM EST us [facility] External Provider LAB BLO OD ORDERABLES Final Result [facility] [address] [place] [address] [phone] documented in this encounter Visit Diagnoses Not on filedocumented in this encounter Care Teams Metal Container Maker Relationship Specialty Start Date End Date Name, MD Reynold [address] [place] [phone] PCP - General Family Medicine 12/26/15 documented as of this encounter
--- OUTSIDE RECORDS SUMMARY | 2025-01-16 14:11 | XMS_ITS | Encounter Summary ---
Author Organization [employer] Address [address] [place] [address] 7 [place] [address] Care Team Providers Care Weighing Station Operator Name Role Phone Name, Reynold FAUST Primary Care Provider [phone] Encounter Details Date Type Department Care Team (Latest Contact Info) Description 10/10/2020 Abstract [facility] CONVERSIONS Dental, Provider, DDS Social History [...] Description 01/31/2025 9:45 AM EDT Office Visit [address] [address] 02/03/2025 9:00 AM EDT Office Visit [facility] [address] [place] [phone] Dayron Rowell MD [address] [place] [phone] 03/29/2025 9:30 AM EDT Office Visit [facility] [address] [place] [phone] Name, MD Reynold [address] [place] [phone] documented as of this encounter Visit Diagnoses Not on filedocumented in this encounter Care Teams Weighing Station Operator Relationship Specialty Start Date End Date Name, MD Reynold [address] [place] [address] PCP - General Family Medicine 12/26/15 documented as of this encounter
--- OUTSIDE RECORDS SUMMARY | 2025-01-16 14:11 | XMS_ITS | Clinical Summary ---
Author Organization [employer] Address [address] [facility] [address] [address] [place] [address] Care Team Providers Care Clinical Manager Name Role Phone Name, Reynold FAUST Primary Care Provider [phone] Allergies Active Allergy Reactions Criticality Noted Date [...] 12/03/19 24 Active cloNIDine (Catapres) 0.2 MG tabletIndication s:Essential hypertension TAKE 1 TABLET BY MOUTH EVERY DAY 90 tablet 1 09/06/20 24 Active hydrocortisone 1 % creamIndications :Rash APPLY TO AFFECTED AREA TWICE A DAY 56 g 3 09/27/19 25 Active traMADol (Ultram) 50 MG tabletIndication s:Chronic pain syndrome TAKE 1 TABLET BY MOUTH IN THE MORNING, AT NOON AND AT BEDTIME IF NEEDED FOR SEVERE PAIN 84 tablet 01/17/20 25 025 Active traMADol (Ultram) 50 MG tabletIndication s:Chronic pain syndrome TAKE 1 TABLET BY MOUTH IN THE MORNING, AT NOON AND AT BEDTIME IF NEEDED FOR SEVERE PAIN 84 tablet 12/16/19 25 025 Discontinued Hospital, Clinic, or Other Facility Administered Medication Ordered Dose Route Frequency Start Date End Date Status lidocaine (Xylocaine) 2 % injection 20 mgIndications:Neoplasm of uncertain behavior 20 mg INFILTRATION Once 12/09/2024 A ctive Active Problems Problem Noted Date Diagnosed Date Diarrhea 12/02/2024 Axillary adenitis 12/02/2024 Ductal carcinoma in situ (DCIS) of breast 2024 H. 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 Agreement renewed. 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 11/02/2019 12/11/2023 Ductal carcinoma in situ (DC IS) of left breast 11/02/2019 12/11/2023 Nausea and vomiting 07/13/2017 12/11/19 24 Hidradenitis 07/10/2016 12/11/2023 Backache 03/04/2012 12/11/2023 Acute gastritis 2012 05/31/2024 Encounters Date Type Department Care Team Description 01/16/2025 Refill [facility] CHC MED & PEDS [address] [place] [address] Gagandeep Kaiser MD Rash 01/15/2025 Refill [facility] MEDICINE [address] [place] [address] Humaira Ng NP Chronic pain syndrome 12/30/2024 Telephone [facility] MED [facility] PEDS [address] [place] [address] 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 12/27/2024 Telephone [facility] MED & PEDS [address] [place] [address] Reynold Crowell MD [facility] 12/27/2024 Travel 12/20/2024 Travel 12/16/[address] [address] Konstantin Davis CNM Results 12/16/2024 Orders Only [address] [address] Konstantin Davis CNM Postmenopausal bleeding (Primary Dx); Abnormal endometrial ultrasound 12/15/[address] [address] Tommy Malave [place] february recalls 12/15/2024 Orders Only [place] [facility] [address] [place] [phone] ProviderMally MD 12/14/[address] [address] NameReynold MD Chronic pain syndrome 12/09/2024 10:45 AM EDT Office Visit [address] [address] Dayron Rowell MD Neoplasm of uncertain behavior (Primary Dx) 12/09/2024 Orders Only GENERIC EXTERNAL DATA DEPARTMENT Provider, Generic External Data 12/09/2024 Travel 12/08/2024 Orders Only [facility] External Provider, [facility] 12/02/2024 8:30 AM EDT Office Visit [facility] ADULT DENTAL [address] [place] [phone] Eliasbet Greer, DDS 12/01/2024 Travel 11/28/2024 Orders Only [address] [address] Konstantin Davis CNM Microscopic hematuria (Primary Dx); Dysuria 11/23/2024 9:00 AM EST Office Visit [address] [address] Konstantin Davis CNM Dysuria (Primary Dx); Routine cervical smear; Postmenopausal bleeding; Vulvar lesion 11/23/2024 Orders Only [facility] [place] [address] Konstantin Davis CNM 11/23/2024 Travel 11/21/2024 Telephone [facility] [place] [address] Reynold Crowell MD [employer] (Boost, very vanilla 8oz (24/cs)) 11/18/2024 Travel 11/17/2024 Telephone [facility] [place] [address] Reynold Crowell MD Durable Medical Equipment (Knee sleeves) 11/16/2024 2:30 PM EST [facility] [place] [address] Reynold Crowell MD 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 (CMS/HCC) (Primary Dx); Acute sore throat; Dysuria; Prediabetes; Essential hypertension 11/16/2024 Travel 11/16/2024 Refill [facility] [place] [address] Reynold Crowell MD Chronic pain syndrome 11/12/2024 Travel 11/11/2024 1:30 PM EST Office Visit [facility] [place] [address] Elisabet Greer, DDS Poorly fitting dentures (Primary Dx) 11/09/2024 Travel 11/04/2024 Telephone [facility] [place] [address] Elisabet Greer, DDS partial adjustment made elsewhere 11/01/2024 9:45 AM EST Clinical Support [facility] [place] [place] [address] Kristen Williamson, CEMENT FINISHER APPRENTICE Primary osteoarthritis of right knee (Primary Dx); assisted (current) use of opiate analgesic; Rheumatoid arthritis involving multiple sites, unspecified whether rheumatoid factor present (CMS/HCC) 11/01/2024 Telephone [facility] [place] [address] Leeanna Paulino RN VOLCANOLOGIST Agreement signed today 11/01/2024 Travel 10/31/2024 Orders Only GENERIC EXTERNAL DATA DEPARTMENT Provider, Generic External Data 10/19/2024 Refill [facility] MEDICINE [address] [place] [address] Reynold Crowell MD Chronic pain syndrome 10/19/2024 Refill [facility] [address] [facility] [place] [address] NameReynold MD from Last 3 Months Immunizations Name Administration [...] is your housing situation today? I have juliethnanette hook 12/11/[address] you [...] Sign Reading Time Taken Comments Blood Pressure 187/96 12/09/2024 10:30 AM EDT Pulse 78 12/09/2024 10:30 AM EDT Temperature 36.6 ??C (97.8 ??F) 12/09/2024 1 0:30 AM EDT Respiratory Rate 16 12/09/2024 10:3 0 AM EDT Oxygen Saturation 99% 11/23/2024 8:55 AM EST Inhaled Oxygen Concentration - - Weight 67.5 kg (148 lb 12.8 oz) 025 10:30 AM EDT Height 149.9 cm (4' 11 ) 12/09/2024 10: 30 AM EDT Body Mass Index 30.05 12/09/2024 10:30 AM EDT Plan of Treatment Upcoming Encounters Date Type Department Care Team (Late st Contact Info) Description 01/31/2025 9:45 AM EDT Office Visit [facility] MEDICINE [address] [place] [phone] 02/03/2025 9:00 AM EDT Office Visit [address] [address] Dayron Rowell MD [address] [place] [address] 03/29/2025 9:30 AM EDT Office Visit [address] [address] Name, MD Reynold [address] [place] [address] Health Maintenance Due Date Last Done Comments [...] Procedure Name Priority Date/Time Associated Diagnosis Comments US PELVIS TRANSVAGINAL Urgent 1:30 PM EDT Postmenopausal bleeding URINALYSIS, COMPLETE Routine 12/09/2024 10:15 AM EDT Dysuria POCT CREATININE GFR Routine 12/09/2024 9 :20 AM EDT DERMATOPATHOLOGY REPORT Routine 12/10/19 9:[address] ENTEROGRAPHY ABDOMEN PELVIS W CONTRAST Routine 12/08/2024 9:22 AM EDT NO CHARGE PROCEDURE Routine 12/02/2024 8 :30 AM EDT PAP SMEAR Routine 11/23/2024 9:23 AM EST Routine cervical smear POCT URINALYSIS DIPSTICK Routine 11/23/2024 9:23 AM EST Dysuria CULTURE, URINE, ROUTINE Routine 11/24/19 9:14 AM EST Dysuria HPV DNA, LOW/HIGH RISK Routine 12:00 AM EST POCT INFLUENZA B (ID [...] PANEL, GENERAL Routine 10/31/2024 2:04 PM EST LIPID PANEL, STANDARD Routine 05/14/2024 [...] Recently Relevant to Health Maintenance Results * US Pelvis Transvaginal (12/16/2024 1:30 PM EDT) Anatomical Region Laterality Modality Pelvis Ultrasound 12/16/2024 1:30 PM EDT Narrative 12/16/2024 2:16 PM EDT ? [facility] ?[address] ?[place] [address] ? Ultrasound Report ? Signed ? Patient: Isaías Maurer,Cece ?MR#: MM ?? [id number] ? : 1965 ?Acct:[id number] ? Age/Sex: 59 / F ?ADM Date: 12/16/24 ? Loc: HO.US ? Attending Dr: Konstantin Davis CNM ? Ordering Physician: KONSTANTIN DAVIS CNM ?? Date of Service: 12/16/24 ?? Procedure(s): US pelvic and transvaginal ?? Accession Number(s): [id number] ? cc: Name,Reynold FAUST; KONSTANTIN DAVIS CNM ? EXAMINATION: ??US PELVIS TRANSABDOMINAL AND TRANSVAGINAL ? HISTORY: possible post menopausal bleeding ? COMPARISON: Correlation is made with a contrast-enhanced CT of the ?? pelvis dated 12/08/2024. ? TECHNIQUE: ? Transabdominal and endovaginal real-time 2D wynne-scale ultrasound was ?? performed. ? FINDINGS: ? Uterus: ??The uterus is normal in size, measuring 6.6 x 2.9 x 3.6 cm. ? Myometrium has a normal echotexture. ??There is a 10 x 9 x 9 mm anterior ?? uterine fibroid. ? Endometrium: ??The endometrial stripe measures 3 mm in thickness. There ?? is debris in the endometrial cavity. ? Right ovary: ??The right ovary is not definitely identified. ? Left ovary: ?? The left ovary is not identified. ? Pelvic fluid: none. ? US/US pelvic and transvaginal ?? IMPRESSION: ?? 10 mm anterior uterine fibroid. Debris in the endometrial cavity. ? Electronically signed by: ??Darren Wagoner MD ??12/16/2024 02:13 PM EDT ?? RP ? Dictated By: ?Darren Wagoner MD ? Signed By: ?<Electronically signed by Darren Wagoner MD in OV> ?12/16/24 1413 ? DD/ 1330 ? TD/TT: 12/16/24 1345 ? Sales Enablement Consultant: ? Procedure Note Sukhi, Image - 12/16/[address] [address] Ultrasound Report Signed Patient: Cece Espinosa#: MM [id number] : 1965Acct:[id number] Age/Sex: 59 / FADM Date: 12/16/24 Loc: HO.US Attending Dr: Konstantin Davis CNM Ordering Physician: KONSTANTIN DAVIS CNM Date of Service: 12/16/24 Procedure(s): US pelvic and transvaginal Accession Number(s): [id number] cc: Name,Reynold FAUST; KONSTANTIN DAVIS CNM EXAMINATION: US PELVIS TRANSABDOMINAL AND TRANSVAGINAL HISTORY: possible post menopausal bleeding COMPARISON: Correlation is made with a contrast-enhanced CT of the pelvis dated 12/08/2024. TECHNIQUE: Transabdominal and endovaginal real-time 2D wynne-scale ultrasound was performed. FINDINGS: Uterus: The uterus is normal in size, measuring 6.6 x 2.9 x 3.6 cm. Myometrium has a normal echotexture. There is a 10 x 9 x 9 mm anterior uterine fibroid. Endometrium: The endometrial stripe measures 3 mm in thickness. There is debris in the endometrial cavity. Right ovary: The right ovary is not definitely identified. Left ovary: The left ovary is not identified. Pelvic fluid: none. US/US pelvic and transvaginal IMPRESSION: 10 mm anterior uterine fibroid. Debris in the endometrial cavity. Electronically signed by: Darren Wagoner MD 12/16/2024 02:13 PM EDT Dictated By: Darren Wagoner MD Signed By: <Electronically signed by Darren Wagoner MD in OV> 12/16/24 1413 DD/ 1330 TD/TT: 12/16/24 1345 Sales Enablement Consultant: us Konstantin Davis CNM IMG US PROCEDURES Final R esult * Urinalysis Complete (12/09/2024 10:15 AM EDT) Color Urine Yellow [facility] Appearance Urine Clear [facility] PH 6.0 5.0 - 9.0 [facility] Glucose Urine UA Negative Negative mg/dL [facility] Urine Blood Negative Negative [facility] Specific Archie - Urine 1.025 1.005 - 1.025 [facility] Urine Protein Trace Neg-Trace mg/dL [facility] Urine Ketones Trace Negative mg/dL [facility] Nitrite Urine Negative Negative [facility] Leukocyte Esterase Urine Negative Negative [facility] RBC Urine 0-2 0 - 2 /HPF [facility] Urine WBC 0-5 0 - 5 /HPF [facility] Urine Squamous Epithelial Cell 6-10 0 - 2 /HPF [facility] Urine Bacteria None Seen None Seen [facility] Hyaline Casts, Urine 3-5 0 - 2 /LPF [facility] Urine (Urine, Random) 12/09/2024 10:15 AM EDT 12/09/2024 11:24 AM EDT Konstantin Davis CNM LAB URINE ORDERABLES Megan l Result [facility] [address] [place] [phone] * POCT Creatinine GFR (12/09/2024 9:20 AM EDT) POCT Creatinine 0.8 0.5 - 1.4 mg/dL [facility] GFR POC >60 [facility] Comment:Chronic Kidney Disea se: Estimated GFR < 60 mL/min/1.53c5Rnrbps Kidney Disease: Estimated GFR < 15 mL/min/1.73m2 12/09/2024 9:20 AM EDT 12/09/2024 4:50 PM EDT Narrative [facility] - 12/09/2024 4:52 PM EDT [id number] us Generic External Data Provider LAB POINT OF CARE TEST DOCKED DEVICE ORDERABLES Final Result [facility] [address] [place] [address] [phone] * Dermatopathology Report (12/09/2024 9:11 AM EDT) us Historical Provider MD LAB BLOOD ORDERABLES Megan l Result * CT Enterography Abdomen Pelvis w/ Contrast (12/08/2024 9:22 AM EDT) Anatomical Region Laterality Modality Computed Tomogra phy 12/08/2024 9:22 AM EDT Narrative 12/08/2024 10:40 AM EDT ? [facility] ?[address] ?[place] [address] ? CT Scan Report ? Signed ? Patient: Cece Espinosa ?MR#: MM ?? [id number] ? : 1965 ?Acct:[id number] ? Age/Sex: 59 / F ?ADM Date: 12/08/24 ? Loc: HO.CT ? Attending Dr: Kylee Mejias MD ? Ordering Physician: Kylee Mejias MD ?? Date of Service: 12/08/24 ?? Procedure(s): CT enterography ?? Accession Number(s): [id number] ? cc: Kylee Mejias MD; Name,Reynold FAUST ? Report Number: ?? [id number]: Total DLP = ??343.00 mGy-cm ?? EXAMINATION: ??CT ABDOMEN PELVIS ENTEROGRAPHY WITHOUT IV CONTRAST ? HISTORY: R10.33 - Periumbilical pain ? COMPARISON: There are no prior studies for comparison. ? TECHNIQUE: CT scan of the abdomen and pelvis was performed following ?? administration of 85 mL Omnipaque 350 using standard departmental ?? protocol. ?? Coronal and sagittal reformatted images were generated and ?? reviewed. ??The patient received low-density oral contrast material for ?? CT enterography. ? This CT exam was performed with one or more of the following dose ?? reduction techniques: automated exposure control, adjustment of the mA ?? and/or kV according to patient size, use of iterative reconstruction ?? technique. ? DLP: 343 mGy-cm ? FINDINGS: ? LOWER CHEST: The visualized lung bases are clear. There is no pleural ?? effusion. ? CARDIOVASCULATURE: The heart is normal in size. ??There is no ?? pericardial effusion. ? LIVER: ??The liver is normal in size and contour. ??No liver mass is ?? identified. ??The hepatic and portal veins are patent. ? GALLBLADDER / BILE DUCTS: ??The gallbladder is unremarkable. There is no ?? intra or extrahepatic biliary ductal dilatation. ? SPLEEN: The spleen is normal in size. No focal splenic lesion is ?? identified. ? PANCREAS: The pancreas is unremarkable in appearance. ? ADRENAL GLANDS: Within normal limits. ? KIDNEYS/RETROPERITONEUM: No renal calculi are identified. There is no ?? hydronephrosis. ??No renal masses are identified. ? LYMPH NODES: ??No abdominal or pelvic lymphadenopathy. ? VASCULATURE: ??The abdominal aorta demonstrates atherosclerotic ?? calcification, but is normal in caliber. ? MESENTERY/PERITONEUM: No free fluid. No masses. ??There is no free ?? intraperitoneal gas. ? STOMACH: ??The stomach is unremarkable. ? SMALL BOWEL: ?? The small bowel is normal in caliber. There is no ?? abnormal small bowel wall thickening or mucosal hyperenhancement. ? COLON: ??There is diverticulosis of the sigmoid colon, without evidence ?? of diverticulitis. ? APPENDIX: ??The appendix is not seen, however no inflammatory changes ?? are seen adjacent to the cecum. ? URINARY BLADDER/PELVIC ORGANS: The urinary bladder is unremarkable. ? The uterus and ovaries are unremarkable. ? BONES / SOFT TISSUES: ??No suspicious bony or soft tissue abnormalities. ? CT/CT enterography ?? IMPRESSION: ?? Sigmoid diverticulosis without evidence of diverticulitis. Otherwise ?? unremarkable CT enterography of the abdomen and pelvis. ? Electronically signed by: ??Darren Wagoner MD ??12/08/2024 10:37 AM EDT ?? RP ? Dictated By: ?Darren Wagoner MD ? Signed By: ?<Electronically signed by Darren Wagoner MD in OV> ?12/08/24 1037 ? DD/ 0922 ? TD/TT: 12/08/24 1006 ? Sales Enablement Consultant: ? Procedure Note Donotuseinterpreter, Image - 12/08/[address] [address] [address] Scan Report Signed Patient: Deanna Espinsoa#: [id number] : 1965Acct:[id number] Age/Sex: 59 / FADM Date: 12/08/24 Loc: HO.CT Attending Dr: Kylee Mejias MD Ordering Physician: Kylee Mejias MD Date of Service: 12/08/24 Procedure(s): CT enterography Accession Number(s): [id number] cc: Kylee Mejias MD; Name,Reynold FAUST Report Number: [id number]: Total DLP = 343.00 mGy-cm EXAMINATION: CT ABDOMEN PELVIS ENTEROGRAPHY WITHOUT IV CONTRAST HISTORY: R10.33 - Periumbilical pain COMPARISON: There are no prior studies for comparison. TECHNIQUE: CT scan of the abdomen and pelvis was performed following administration of 85 mL Omnipaque 350 using standard departmental protocol. Coronal and sagittal reformatted images were generated and reviewed. The patient received low-density oral contrast material for CT enterography. This CT exam was performed with one or more of the following dose reduction techniques: automated exposure control, adjustment of the mA and/or kV according to patient size, use of iterative reconstruction technique. DLP: 343 mGy-cm FINDINGS: LOWER CHEST: The visualized lung bases are clear. There is no pleural effusion. CARDIOVASCULATURE: The heart is normal in size. There is no pericardial effusion. LIVER: The liver is normal in size and contour. No liver mass is identified. The hepatic and portal veins are patent. GALLBLADDER / BILE DUCTS: The gallbladder is unremarkable. There is no intra or extrahepatic biliary ductal dilatation. SPLEEN: The spleen is normal in size. No focal splenic lesion is identified. PANCREAS: The pancreas is unremarkable in appearance. ADRENAL GLANDS: Within normal limits. KIDNEYS/RETROPERITONEUM: No renal calculi are identified. There is no hydronephrosis. No renal masses are identified. LYMPH NODES: No abdominal or pelvic lymphadenopathy. VASCULATURE: The abdominal aorta demonstrates atherosclerotic calcification, but is normal in caliber. MESENTERY/PERITONEUM: No free fluid. No masses. There is no free intraperitoneal gas. STOMACH: The stomach is unremarkable. SMALL BOWEL: The small bowel is normal in caliber. There is no abnormal small bowel wall thickening or mucosal hyperenhancement. COLON: There is diverticulosis of the sigmoid colon, without evidence of diverticulitis. APPENDIX: The appendix is not seen, however no inflammatory changes are seen adjacent to the cecum. URINARY BLADDER/PELVIC ORGANS: The urinary bladder is unremarkable. The uterus and ovaries are unremarkable. BONES / SOFT TISSUES: No suspicious bony or soft tissue abnormalities. CT/CT enterography IMPRESSION: Sigmoid diverticulosis without evidence of diverticulitis. Otherwise unremarkable CT enterography of the abdomen and pelvis. Electronically signed by: Darren Wagoner MD 12/08/2024 10:37 AM EDT Dictated By: Darren Wagoner MD Signed By: <Electronically signed by Darren Wagoner MD in OV> 12/08/24 1037 DD/ 0922 TD/TT: 12/08/24 1006 Sales Enablement Consultant: [facility] External Provider IMG CT PROCEDURES Edited Result - Final * (ABNORMAL) POCT urinalysis dipstick manually resulted [...] AM EST 11/24/2024 6:00 AM EST Narrative [facility] - 11/28/2024 8:33 AM EDT ----- ------- Name: Cece Espinosa ? Age/Sex: 59/F ? : 1965 Unit#: [id number] ?? Attend Dr: KONSTANTIN DAVIS CNM ?Re11/23/24 ?Status: DEP REF ? Location: HO.HHCLNP ? Disch: ? ----- ------- SPEC : [id number] ? RECD: 11/24/24 ? STATUS: ??SOUT ? REQ NUM: [id number] ? LEVI: 11/23/24 ? SUBM DR: KONSTANTIN DAVIS CNM ? ENTERED: ??11/24/24 ?SP TYPE: Pap Smr ?OTHR : ? ORDERED: ??Pap Smear ? Interpretation ?? Satisfactory for evaluation. ?? Negative for intraepithelial lesion or malignancy. ?? No endocervical cells seen. ? HPV High Risk: ??Negative ? HPV Genotyping 16: ??Negative ?? HPV Genotyping 18: ??Negative ?Clinical Information LMP: Unknown date Previous PAP test: 07/2022, NIL/HPV+ ? Material Received ?? Cervix ----- ------- Signed (signature on file) MUNIR Fonseca (ASCP) 11/28/24 6217 ? ----- ------- ? END OF REPORT ? Konstantin Davis [facility] CYTOLOGY ORDERABLES F inal Result Performing Organization Address [facility]/ZIP Co de Phone Number [facility] [address] [place] [phone] * Culture, Urine, Routine (11/23/2024 9:14 AM EST) Urine Urine specimen obtained by clean catch procedure / Unknown 11/23/2024 9:14 AM EST 11/23/2024 5:15 PM EST Comment:UACC Narrative [facility] - 11/25/2024 12:16 PM EST Urine Culture No growth. Specimen Source: Urine clean catch Konstantin WILLIS [facility] MICROBIOLOGY - GENERA L ORDERABLES Final Result Performing Organization Address [facility] Co de Phone Number [facility] [address] [place] [phone] * HPV DNA, Low/High Risk (11/23/2024 12:00 AM EST) HPV High Risk Negative Negative [facility] HPV Genotype 16 Negative Negative [facility] HPV Genotype 18 Negative Negative [facility] Comment:HPV testing performe d at [facility] (CLIA#[id number]), [address] [place] [address].Testing for HPV was performed using the [employer]0system. The presence of HPV in the female [...] detected. 11/23/2024 11/24/2024 8:5 6 AM EST Konstantin Davis [facility] BLOOD ORDERABLES Megan l Result Performing Organization Address [facility] de Phone Number [facility] [address] [place] [phone] * POCT Rapid Influenza B ASCENCIO ID NOW (11/16/2024 3:40 PM EST) Influenza B Negative Negative, Indeterminate [facility] QC Media Lot # [id number] [facility] Lot# Expiration Date ,328 [facility] Swab 11/16/2024 3:40 PM EST us Reynold Crowell MD POINT OF CARE TEST ENTER/EDIT OR DERABLES Final Result Performing Organization Address [facility] de Phone Number [facility] [address] [place] [phone] * POCT Rapid Influenza A ASCENCIO ID NOW (11/16/2024 3:40 PM EST) Influenza A Negative Negative, Indeterminate [facility] QC Media Lot # [id number] [facility] Lot# Expiration Date 098 [facility] Swab 11/16/2024 3:40 PM EST us Reynold Crowell MD POINT OF CARE TEST ENTER/EDIT OR DERABLES Final Result Performing Organization Address [facility] de Phone Number [facility] [address] [place] [phone] * POCT Rapid Covid-19 BinaxNOW (11/16/2024 3:39 PM EST) Rapid COVID Ag Negative QC Media Lot # [id number] Lot# Expiration Date Nares 11/16/2024 3:39 PM EST Reynold Crowell MD POINT OF CARE TEST ENTER/EDIT OR DERABLES Final Result * (ABNORMAL) POCT HGB A1C (11/16/2024 2:28 PM EST) Pathologist [facility] Hemoglobin A1C 6.2(A) 4.0 - 6.0 % QC Media Lot # [id number] Lot# Expiration Date , Blood 11/16/2024 2:28 PM EST us Reynold Crowell MD POINT OF CARE TEST ENTER/EDIT OR DERABLES Final Result * POCT Glucose (11/16/2024 2:28 PM EST) Pathologist [facility] Glucose Blood, POC 90 60 - 200 mg/dL QC Media Lot # [id number] Lot# Expiration Date [id number] Blood Capillary blood specimen / Unknown 11/16/2024 2:28 PM EST Reynold Crowell MD POINT OF CARE TEST ENTER/EDIT OR DERABLES Final Result * BI Mammogram Screening Tomosynthesis Bilateral (11/10/2024 1:45 PM EST) Anatomical Region Laterality Modality Breast Bilateral Mammography 11/10/2024 1:45 PM EST Narrative 11/10/2024 2:38 PM EST ? [facility] [facility] ? [address] ?[place] [address] ? Mammography Report ? Signed ? Patient: Isaías Maurer,Cece ?MR#: [id number] ?? [id number] ? : 1965 ?Acct:[id number] ? Age/Sex: 59 / F ?ADM Date: 11/10/24 ? Loc: HO.MAMMO ? Attending Dr: Reynold Crowell MD ? Ordering Physician: Reynold Crowell MD ?Results: 2Benign Fi ?? ndings ? Date of Service: 11/10/24 ?Follow Up: 1 Year From Orig ?? inal Mammogram ? Procedure(s): MM tomosynthesis screening BI ?? Accession Number(s): [id number] ? cc: Mervat,Reynold FAUST ? EXAMINATION: ?? MM SCREENING DIGITAL [...] DD/ 1345 ? TD/TT: 11/10/24 1422 ? Sales Enablement Consultant: ? Procedure Note Donkasiater, Image - 11/10/2024 [facility] [address] [place] [address] Mammography Report Signed Patient: Cece EspinosaMR#: [id number] : 1965Acct:[id number] Age/Sex: 59 / FADM Date: 11/10/24 Loc: FRENCHO Attending Dr: Reynold Crowell MD Ordering Physician: Reynold Crowellesults: 2Benign Fi ndings Date of Service: 11/10/24Follow Up: 1 Year From Orig inal Mammogram Procedure(s): MM tomosynthesis screening BI Accession Number(s): [id number] cc: Reynold Crowell MD EXAMINATION: MM SCREENING [...] 11/10/24 1435 DD/ 1345 TD/TT: 11/10/24 1422 Sales Enablement Consultant: Reynold MORSE BI PROCEDURES Final Result * POCT ANIKA-14 Urine Drug Screen (11/01/2024 2:07 PM EST) Urine Urine specimen obtained by clean catch procedure / Unknown 11/01/2024 2:07 PM EST Leeanna Claudio RN - 11/01/2024 2:07 PM EST UTOX cup Lot#[id number] Exp. 06/15/26 Internal Pass Control Negative for all substances Kristen Williamson CEMENT FINISHER APPRENTICE POINT OF CARE TEST ENTER/EDIT ORDERABLES Final Result * T-SPOT??.TB (10/31/2024 2:04 PM EST) T Spot TB Negative Negative [facility] Comment:A negative test resu lt [...] as aquantitative test. TS PANEL A 1 [facility] TS PANEL B 0 [facility] Negative Control Passed [facility] Positive Control Passed [facility] Comment:For additional infor michelle, please refer [email or web address]/faq/[email or web address](This link is being provided for informational/educational purposes only.)THIS TEST WAS PERFORMED AT:[id number] [place] [address]JGQPEUIMADHURI MARTIN MD,PHD 10/31/2024 2:04 PM EST 10/31/2024 2:04 PM EST us Generic External Data Provider LAB BLOOD ORDERAB LES Final Result [facility] [address] [place] [phone] * Hepatitis Panel, General (10/31/2024 2:04 PM EST) Hepatitis A IgM Nonreactive Nonreactive [facility] Comment:IgM antibodies to CORONADO V not detected; does not exclude earlyacute or recovered HAV infection. ~Hepatitis B Surface Antibody REACTIVE Nonreactive [facility] Comment:REACTIVE: > 11.99 mI U/mL Hepatitis B Core Antibody Nonreactive Nonreactive [facility] Hepatitis C Antibody Nonreactive Nonreactive [facility] Comment:Antibodies to HCV no t detected; does not exclude early acuteHCV infection. Hepatitis B Surface Ag Negative Negative [facility] 10/31/2024 2:04 PM EST 10/31/2024 2:04 PM EST us Generic External Data Provider LAB BLOOD ORDERAB LES Final Result Performing Organization Address [facility] Co de Phone Number [facility] [address] [place] [phone] * (ABNORMAL) Lipid Panel, Standard (05/14/2024 9:34 AM EDT) Triglycerides 132 <150 mg/dL [facility] Comment:Desirable Triglyceri de: less than 150 mg/dLBorderline High Triglyceride 150-199 mg/dLHigh Triglyceride: 200-499 mg/dLVery High Triglyceride: greater than or equal to 5OO mg/dL Cholesterol 218(H) <200 mg/dL [facility] Comment:Desirable Cholestero l: less than 200 mg/dLBorderline High Cholesterol: 200-239 mg/dLHigh Cholesterol: greater than 239 mg/dL LDL Cholesterol Calculated 130(H) <100 mg/dL [facility] Comment:Desirable LDL: less than 100 mg/dLNear Optimal/Above Optimal LDL: 110- 129 mg/dLBorderline High LDL: 130-159 mg/dLHigh LDL: 160-189 mg/dLVery High LDL: greater than or equal to 190 mg/dL HDL Cholesterol 62 >40 mg/dL [facility] Comment:Desirable HDL: great er than 40 mg/dL Note: This HDL assay may give artificially low results in patients with liver disease. Blood Venous blood specimen / Unknown 05/14/2024 9:34 AM EDT 05/14/2024 9:34 AM EDT us Reynold Crowell MD LAB BLOOD ORDERABLES Final Resul t Performing Organization Address City/[facility]/ZIP Co de Phone Number [facility] [address] [place] [phone] from Last 3 Months or Most Recently Relevant to Health Maintenance Insurance * Guarantor: Cece Espinosa Account Type Relation to Patient Date of Phone Billing Address Personal/Family Self [address] [place] [address] [facility] < [address] [place] [address] * Guarantor: Cece Espinosa Account Type Relation to Patient Date of Phone Billing Address Dental Self [address] [place] [address] [facility] * Guarantor: Cece Espinosa Account Type Relation to Patient Date of Phone Billing Address Personal/Family Self [address] [place] [address] * Guarantor: Cece Espinosa Account Type Relation to Patient Date of Phone Billing Address Personal/Family Self [address] [place] [address] * Guarantor: Cece Espinosa Account Type Relation to Patient Date of Phone Billing Address Personal/Family Self [address] [place] [address] Care Teams Clinical Manager Relationship Specialty Start Date End Date Name, MD Reynold [address] [place] [address] PCP - General Family Medicine 12/26/15
--- OUTSIDE RECORDS SUMMARY | 2025-01-16 14:11 | XMS_ITS | Encounter Summary ---
Author Organization [employer] Address [address] [facility] 7t [place] [address] Care Team Providers Care Refractory Products Supervisor Name Role Phone Name, Reynold FAUST Primary Care Provider [phone] Reason for Visit * Reason Comments Med Refill Encounter Details Date Type Department Care Team ([facility] st Contact Info) Description 02/28/2024 Refill [facility] [address] [place] [address] Name, MD Reynold [address] [place] [address] Chronic cough Social History Tobacco Use Types [...] Description 01/31/2025 9:45 AM EDT Office Visit [address] [address] 02/03/2025 9:00 AM EDT Office Visit [address] [address] Dayron Rowell MD [address] [place] [address] 03/29/2025 9:30 AM EDT Office Visit [address] [address] NameReynold MD [address] [place] [address] documented as of this encounter Visit Diagnoses Diagnosis Chronic cough Cough documented in this encounter Additional Health Concerns Assessment Noted Time PHQ-9 Depression Total Score: 7 12/11/19 24 11:10 AM EDT documented as of this encounter Care Teams Refractory Products Supervisor Relationship Specialty Start Date End Date Reynold Crowell MD [address] [place] [address] PCP - General Family Medicine 12/26/15 documented as of this encounter
--- OUTSIDE RECORDS SUMMARY | 2025-01-16 14:11 | XMS_ITS | Encounter Summary ---
Author Organization [employer] Address [address] [facility] 7t [place] [address] Care Team Providers Care Hide Handler Name Role Phone Name, Reynold FAUST Primary Care Provider [phone] Reason for Visit * Reason Onset Date Comments New Med Request 2024 Encounter Details Date Type Department Care Team ([facility] st Contact Info) Description 2024 Telephone [facility] [address] [place] [address] Name, MD Reynold [address] [place] [address] New Med Request Social History Tobacco Use [...] T/C to pt. For below message [place] - [id number], pt. Verbally greed and understood. * Telephone [...] Description 01/31/2025 9:45 AM EDT Office Visit [facility] [address] [place] [address] 02/03/2025 9:00 AM EDT Office Visit [address] [address] Dayron Rowell MD [address] [place] [address] 03/29/2025 9:30 AM EDT Office Visit [address] [address] NameReynold MD [address] [place] [address] documented as of this encounter Visit Diagnoses Not on filedocumented in this encounter Additional Health Concerns Assessment Noted Time PHQ-9 Depression Total Score: 7 12/11/19 24 11:10 AM EDT documented as of this encounter Care Teams Hide Handler Relationship Specialty Start Date End Date NameReynold MD [address] [place] [address] PCP - General Family Medicine 12/26/15 documented as of this encounter
--- OUTSIDE RECORDS SUMMARY | 2025-01-16 14:11 | XMS_ITS | Encounter Summary ---
Author Organization [employer] Address [address] [place] [address] 7 [place] [address] Care Team Providers Care Director Of Security Name Role Phone Name, eRynold FAUST Primary Care Provider [phone] Encounter Details Date Type Department Care Team (Late st Contact Info) Description 11/11/2022 Orders Only [facility] [address] [place] [address] Valeria Heredia LPN Social History Tobacco Use [...] Description 01/31/2025 9:45 AM EDT Office Visit [facility] [address] [place] [address] 02/03/2025 9:00 AM EDT Office Visit [address] [address] Dayron Rowell MD [address] [place] [address] 03/29/2025 9:30 AM EDT Office Visit [address] [address] Name, MD Reynold [address] [place] [address] [place] [address] documented as of this encounter Procedures Procedure Name Priority Date/Time Associated Diagnosis Comments XR CHEST 2 VIEWS Routine 11/28/2022 4:19 PM EST documented in this encounter Results * XR Chest 2 Views (11/28/2022 4:19 PM EST) Anatomical Region Laterality Modality Chest Radiographic Milla ging 11/28/2022 4:19 PM EST Narrative 11/29/2022 12:42 PM EST ? [facility] ?[address] ?[place] [address] ?XRay Report ? Signed ? Patient: Cece Espinosa ?MR#: MM ?? [id number] ? : 1965 ?Acct:[id number] ? Age/Sex: 57 / F ?ADM Date: 11/28/22 ? Loc: HO.XRAY ? Attending Dr: Reynold Crowell MD ? Ordering Physician: Reynold Crowell MD ?? Date of Service: 11/28/22 ?? Procedure(s): XR chest 2V ?? Accession Number(s): [id number] ? cc: Reynold Crowell MD ? EXAMINATION: [...] signed by Zan Barrios MD in OV> ?// 1239 ? DD/DT: 03/10/ 1619 ? TD/TT: ? Theater Education Teacher: DELEON ? Procedure Note Sukhi, Image - 03 [facility] [address] [place] [address] XRay Report Signed Patient: Cece EspinosaMR#: [id number] : 1965Acct:[id number] Age/Sex: 57 / FADM Date: 11/28/22 Loc: HO.XRAY Attending Dr: Reynold Crowell MD Ordering Physician: Reynold Crowell MD Date of Service: 11/28/22 Procedure(s): XR chest 2V Accession Number(s): [id number] cc: Reynold Crowell MD EXAMINATION: XR CHEST [...] in OV> 11/29/22 1239 DD/ 1619 TD/TT: Theater Education Teacher: DELEON [facility] External Provider IMG XR PROCEDURES Final Result documented in this encounter Visit Diagnoses Not on filedocumented in this encounter Care Teams Director Of Security Relationship Specialty Start Date End Date Name, MD Reynold [address] [place] [address] PCP - General Family Medicine 12/26/15 documented as of this encounter
--- OUTSIDE RECORDS SUMMARY | 2025-01-16 14:11 | XMS_ITS | Encounter Summary ---
Author Organization [employer] Address [address] [facility] 7t [place] [address] Care Team Providers Care Crisis Clinician Name Role Phone Name, Reynold FAUST Primary Care Provider [phone] Reason for Visit * Reason Comments Med Refill Encounter Details Date Type Department Care Team ([facility] Contact Info) Description 12/22/2022 Refill [facility] [address] [place] [address] Name, MD Reynold [address] [place] [address] Rash Social History Tobacco Use Types Packs/Day [...] Upcoming Encounters Date Type Department Care Team ([facility] Contact Info) Description 01/31/2025 9:45 AM EDT Office Visit [facility] [address] [place] [address] 02/03/2025 9:00 AM EDT Office Visit [facility] [address] [place] [address] Dayron Rowell MD [address] [place] [address] 03/29/2025 9:30 AM EDT Office Visit [address] [address] Name, MD Reynold [address] [place] [address] documented as of this encounter Visit Diagnoses Diagnosis Rash Rash and other nonspecific skin eruption documented in this encounter Care Teams Crisis Clinician Relationship Specialty Start Date End Date Reynold Crowell MD [address] [place] [address] PCP - General Family Medicine 12/26/15 documented as of this encounter
== END 2025-01-16 12:43 | disposition home or self-care (01) ==
LOC: HO.HWS 11:51
PROVIDERS: PCP Internal Medicine Geriatric Medicine; Visit Provider Obstetrics & Gynecology
DX: D25.9 Leiomyoma of uterus, unspecified (principal); N85.9 Noninflammatory disorder of uterus, unspecified
CPT/HCPCS: 99203

== ENCOUNTER → 2025-01-16 11:51 | Outpatient (BNVA) | payer OTHER, SELFPAY | PROVIDERS: PCP Internal Medicine Geriatric Medicine; Visit Provider Obstetrics & Gynecology | DX: D25.9 Leiomyoma of uterus, unspecified (principal); N85.9 Noninflammatory disorder of uterus, unspecified | CPT/HCPCS: 99202 ==

== ENCOUNTER 2025-03-29 09:49 | Outpatient (REF) | payer OTHER, SELFPAY ==
[2025-03-29 12:01] LABS: MANUAL DIFF FLAG NO
[2025-03-29 12:03] LABS: Hematocrit 38.7 % (37.0-47.0); Hemoglobin 12.4 g/dl (12.0-16.0); Imm Gran Abs Auto 0.01 X10*3/uL (0.00-0.03); Imm Gran Pct Auto 0.2 % (0.0-0.4); Lymphocytes Absolute Auto 1.0 X10*3/uL (1.2-4.9); Mean Corpuscular HGB Conc 32.0 g/dl (31.0-35.0); Mean Corpuscular Hemoglobin 27.7 pg (27.0-33.0); Mean Corpuscular Volume 86.6 fL (80.0-98.0); NRBC Abs Auto 0.000 X10*3/uL (0.0-0.012); NRBC Pct Auto 0.0 /100WBC (0.0-0.2); Platelet Count 180 X10*3/uL (160-400); Red Blood Count 4.47 X10*6/uL (4.20-5.50); White Blood Count 4.3 X10*3/uL (4.8-10.8)
[2025-03-29 12:20] LABS: Glucose Urine UA Negative (Negative); PH 5.5 (5.0-9.0); Specific Gravity - Urine 1.025 (1.005-1.025); UMIC TRIGGER UACC YES
[2025-03-29 12:21] LABS: Appearance Urine Cloudy
[2025-03-29 12:39] LABS: Alanine Aminotransferase 32 U/L (0-31); Albumin Level 4.4 g/dL (3.5-5.0); Alkaline Phosphatase 72 U/L (39-117); Anion Gap 11 (12-20); Aspartate Amino Transferase 33 U/L (5-31); Blood Urea Nitrogen 19 mg/dL (9-16); Calcium 9.3 mg/dL (8.4-10.2); Carbon Dioxide 29 mmol/L (22-29); Chloride 105 mmol/L (96-108); Estimated Glomerular Filt Rate > 60; Potassium 3.5 mmol/L (3.3-5.1); Sodium 141 mmol/L (135-145); Total Protein 7.8 g/dL (6.5-8.0)
== END 2025-03-29 09:50 | disposition home or self-care (01) ==
LOC: HO.HHCL 09:49
PROVIDERS: Internal Medicine Gastroenterology; Student in an Organized Health Care Education/Training Program; PCP Internal Medicine Geriatric Medicine; Referring Provider Student in an Organized Health Care Education/Training Program; Visit Provider Internal Medicine Geriatric Medicine
DX: M06.09 Rheumatoid arthritis without rheumatoid factor, multiple sites (principal); K75.81 Nonalcoholic steatohepatitis (NASH); R19.7 Diarrhea, unspecified; R30.0 Dysuria; Z79.1 Long term (current) use of non-steroidal anti-inflammatories (NSAID)
CPT/HCPCS: 36415; 80053; 81001; 85025; 85652; 86140

== ENCOUNTER 2025-04-20 13:12 | Outpatient (AMB) | payer OTHER, SELFPAY ==
--- NOTE | 2025-04-20 13:18 | MHC.OFFVIS ---
Vital Signs 04/20/25 13:25 Height 4 ft 11 in Weight 147 lb BMI 29.7 BP 188/88 H Blood Pressure Location Lt brachial Position Sitting Pulse 98 Intake Visit Reasons: 6 month breast exam Intake Note: Patient is seen in office for 6 month follow up visit, breast exam. Patient c/o: rt side at the axilla feels a lump, number under it, bilateral nipples has foul odor, no discharge mm sched:11/16/25 Lunchroom Attendant Required: No Collection Correspondent: Collection Correspondent Present Accompanied by: Self / Same As Patient Allergies folic acid Adverse Reaction (Unknown, Verified 01/16/25 12:09) Rash on neck HPI Comments Details: Cece Metz is a 60 year old female patient of Dr. Crowell returning for a follow up breast examination following surgery for DCIS in bilateral breasts on 10/03/2019. Margins in the right side were felt to be close therefore a wider excision was performed on 11/11/2019 with no additional DCIS identified. She was initially placed on Tamoxifen by Dr. Santoyo but was switched to Aromasin and later letrozole but because of the side effects she is currently on no medications. And seen by [facility] at [facility]. She completed radiation therapy 02/21/2020.? She continues to report bilateral breast pain especially on the right side the upper outer quadrant. She notes some swelling in the upper outer portion of the right breast into the axilla with pain. She continues to follow Dr. Santoyo but is not currently on any oral antiestrogen medication. Her most recent mammogram performed on 11/10/2024 revealed no mammographic evidence of malignancy (BI-RADS 2). Follow-up mammogram in 1 year is recommended. She complains of pain in the right axilla with swelling with palpation. She also reports an odor from the bilateral nipples. 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 Surgical History History of eye surgery History of breast surgery (~11/11/19) History of esophagogastroduodenoscopy (EGD) H/O tubal ligation History of lumpectomy of both breasts (~10/03/19) Family History Mother HTN (hypertension) Father Diabetes Daughter Fibromyoma Maternal Aunt Cervical cancer Social History Household Members: None Housing: Apartment Are you a primary director career to a significant other at home: No Do you presently have visiting nurse or other home services: Yes ([facility]) Alcohol intake: never Patient Tobacco Use Status: Former Tobacco user service: No Current occupational status: unemployed Female Reproductive History Menstrual Age of Menarche: 10 Review of Systems Const Denies chills, Denies fever(s) and Denies poor appetite Card Denies chest pain, Denies rapid heart rate, Denies palpitations and Denies slow heart rate Resp Denies chest congestion, Denies cough, Denies pain on inspiration and Denies wheezing Denies nipple discharge Musc Reports back pain, Reports arthralgias, Denies joint swelling and Denies numbness Skin/Breast Reports as per HPI, Reports breast pain, Denies change in pigmentation, Denies nipple discharge, Denies erythema and Denies rash Neuro Denies numbness Endo Denies palpitations Woodrow/Lymph Denies lymphadenopathy Aller/Immun Denies wheezing Physical Exam Const General: comfortable and no acute distress Nutritional Appearance: well nourished Orientation/consciousness: patient oriented x3 Limitations: no limitations HEENT Head: Yes normocephalic and Yes atraumatic Chest Other: Right breast with volume loss specially in the upper outer quadrant with hollows from the prior surgery. No discrete masses appreciated within this area or in the remaining breast tissue. Skin retraction essentially unchanged from prior examinations. No enlarged lymph nodes, palpable mass, or new skin changes appreciated. No nipple discharge. Left breast with post radiation change but well-healed scar and no palpable mass, skin change, nipple discharge or enlarged lymph nodes. Resp Effort & Inspection: normal respiratory effort, no audible wheezes, no cough and no respiratory distress GI Inspection: Yes normal to inspection Skin General skin exam: no rashes or lesions noted Neuro Other: Mobility Assessment: 1. 3 meter assessment time (seconds) 5 2. 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 She subsequent underwent radiation therapy. Examination reveals residual post therapy changes and volume loss right breast but no suspicious findings in either breast. No suspicious findings were noted in either breast. She does have an odor emanating from both nipples which may be a fungal yeast infection. She also has tenderness in the right axilla with the possibility of enlarged lymph nodes therefore I will repeat the right breast limited ultrasound for the axilla. She will return following the ultrasound to review the results. 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
--- OUTSIDE RECORDS SUMMARY | 2025-04-20 13:24 | XMS_ITS | Encounter Summary ---
Author Organization [facility] Address [address] [facility] [address] [place] [address] Phone Care Team Providers Care Web Development Manager Name Role Phone Name, Reynold FAUST Primary Care Provider [phone] Reason for Visit * Reason Comments Medication Refill Encounter Details Date Type Department Care Team (Late st Contact Info) Description 04/26/2020 Refill [facility] Rad Onc [address] [place] [address] Izabel Moran MD [address] [place] [address] [email or web address] [email or web address] Refill Social History Tobacco Use Types Packs/Day Years Used Date Smoking Tobacco: Former Cigarettes 1 35 0 10/02/1977 - 10/02/2012 Smokeless Tobacco: Never Alcohol Use Standard Drinks/Week Comments Not Currently 0 (1 standard drink = 0.6 oz pur e alcohol) Comments Unknown Sex and Gender Information Value Date Recorded Sex Assigned at Not on file Legal Sex Female 10:25 AM EST Gender Identity Not on file Sexual Orientation Not on file documented as of this encounter Plan of Treatment Not on file documented as of this encounter Visit Diagnoses Not on filedocumented in this encounter Care Teams Web Development Manager Relationship Specialty Start Date End Date Name, MD Reynold [address] [place] [address] PCP - General Geriatric Psychiatry 10/26/19 documented as of this encounter Additional Source Comments The information contained in this document represents components of the legal health record. It is not the complete legal health record.[facility]
--- OUTSIDE RECORDS SUMMARY | 2025-04-20 13:24 | XMS_ITS | Encounter Summary ---
Author Organization [employer] Address [address] [place] [address] Care Team Providers Care Design Chief Name Role Phone Name, Reynold FAUST Primary Care Provider [phone] Reason for Visit * Reason Comments Med Refill Encounter Details Date Type Department Care Team ([facility] st Contact Info) Description 04/17/2025 Refill [facility] [address] [place], [place] [phone] Name, MD Reynold [address] [place] [address] Social History Tobacco Use Types Packs/Day Years Used Date Smoking Tobacco: Former Smokeless Tobacco: Never Alcohol Use Standard Drinks/Week Comments Never 0 (1 standard drink = 0.6 oz pur e alcohol) Depression Answer Date Recorded Patient Health Questionnaire-9 Score 9 04/17/2025 Patient Health Questionnaire-9 Score 9 04/17/2025 Last PHQ-9: Questionnaire Data Not on file 0 04/17/2025 Housing Stability Answer Date Recorded What is your housing situation today? I have julieth hook 03/29/[address] you li ve. Do you have problems with any of the following? None of the above 03/29/2025 Food Insecurity Answer Date Recorded Within the past 12 months, y ou worried that your food would run out before you got money to buy more: Never True 03/29/2025 Within the past 12 months,th e food you bought just didn't last and you didn't have enough money to get more: Never True 05/2025 Transportation Answer Date Recorded In the past 12 months, has l ack of transportation kept you from medical appts, meetings, work or from getting things needed for daily living? No 03/29/2025 Utilities Answer Date Recorded In the past 12 months, has t he electric, gas, oil or water company threatened to shut off services in your home? No 03/29/2025 Depression Answer Date Recorded Patient Health Questionnaire-2 Score 3 04/17/2025 Comments No Sex and Gender Information Value Date Recorded Sex Assigned at Female 07/21/2022 10:14 AM EDT Legal Sex Female 10:14 AM EDT Gender Identity Female 07/21/2022 10:14 AM EDT Sexual Orientation Straight 07/21/2022 10 :14 AM EDT documented as of this encounter Functional Status * Over the past 2 weeks, how often have you been bothered by any of the following problems? Question Answer Date of Assessment Author Patient Health Questionnaire -2 Score 3 04/17/2025 10:41 AM EDT Valerio Thrasher V ictoria * Little interest or pleasure in doing things Answer Date of Assessment Author More than half the days 04/17/2025 10:41 AM Francy Skelton * Feeling down, depressed, or hopeless Answer Date of Assessment Author Several days 04/17/2025 10:41 AM Francy Torres Ba * Trouble falling or staying asleep, or sleeping too much Answer Date of Assessment Author More than half the days 04/17/2025 10:41 AM Francy Skelton * Feeling tired or having little energy Answer Date of Assessment Author More than half the days 04/17/2025 10:41 AM Francy Skelton * Poor appetite or overeating Answer Date of Assessment Author Several days 04/17/2025 10:41 AM Francy Torres Ba * Feeling bad about yourself - or that you are a failure or have let yourself or your family down Answer Date of Assessment Author Not at all 04/17/2025 10:41 AM Francy Torres Ba * Trouble concentrating on things, such as reading the newspaper or watching television Answer Date of Assessment Author Several days 04/17/2025 10:41 AM Francy Torres Ba * Moving or speaking so slowly that other people could have noticed? Or the opposite - being so fidgety or restless that you have been moving around a lot more than usual. Answer Date of Assessment Author Not at all 04/17/2025 10:41 AM EDT Francy Cantu Ba * Thoughts that you would be better off or hurting yourself in some way Answer Date of Assessment Author Not at all 04/17/2025 10:41 AM EDT Francy Cantu Ba * Patient Health Questionnaire-9 Score Answer Date of Assessment Author 9 04/17/2025 10:41 AM EDT Francy Cantu Ba * How difficult have these problems made it for you to do your work, take care of things at home, or get along with other people? Answer Date of Assessment Author Somewhat difficult 04/17/2025 10:41 AM EDT Francy Munoz documented as of this encounter Plan of Treatment Upcoming Encounters Date Type Department Care Team (Late st Contact Info) Description 04/27/2025 9:00 AM EDT Office Visit [facility] [address] [place] [address] Jeanine-Elisabet Arzate, DDS [address] [place] [address] 05/30/2025 9:45 AM EDT Office Visit [facility] [address] [place] [address] 07/12/2025 2:00 PM EDT Office Visit [facility] OPTOMETRY [address] [place] [address] TarkaXiao, OD [address] [place] [address] documented as of this encounter Visit Diagnoses Not on filedocumented in this encounter Additional Health Concerns Assessment Noted Time PHQ-9 Depression Total Score: 04/17/20 10:41 AM EDT documented as of this encounter Care Teams Design Chief Relationship Specialty Start Date End Date Name, MD Reynold [address] [place] [address] PCP - General Family Medicine 12/26/15 documented as of this encounter
[2025-04-20 13:25] VITALS: BP 188/88; PULSE 98; BMI 29.7
== END 2025-04-20 13:34 | disposition home or self-care (01) ==
LOC: HO.HGS 13:12
PROVIDERS: PCP Internal Medicine Geriatric Medicine; Visit Provider Surgery
DX: D05.11 Intraductal carcinoma in situ of right breast (principal); D05.12 Intraductal carcinoma in situ of left breast; B36.9 Superficial mycosis, unspecified; I88.9 Nonspecific lymphadenitis, unspecified
CPT/HCPCS: 99213; G2211

== ENCOUNTER → 2025-04-20 13:12 | Outpatient (BNVA) | payer OTHER, SELFPAY | PROVIDERS: PCP Internal Medicine Geriatric Medicine; Visit Provider Surgery | DX: D05.11 Intraductal carcinoma in situ of right breast (principal); D05.12 Intraductal carcinoma in situ of left breast; B36.9 Superficial mycosis, unspecified; I88.9 Nonspecific lymphadenitis, unspecified | CPT/HCPCS: 99212 ==

== ENCOUNTER 2025-06-05 14:08 | Outpatient (REF) | payer OTHER, SELFPAY ==
--- NOTE | ~2025-06-05 | MM_ITS ---
EXAMINATION(S): 1. MM DIAGNOSTIC DIGITAL BREAST TOMOSYNTHESIS, RIGHT 2. 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 -Right breast pain at the level of the scar in the lateral breast. -Swelling/lump in the right axilla. COMPARISON: Comparison made to multiple prior, most recent November 10, 2024, and most remote October 28, 2022. TECHNIQUE: Digital breast tomosynthesis is performed in both the mediolateral oblique and craniocaudal views along with computer-aided detection (CAD). Synthesized 2D images are generated from the tomosynthesis. FINDINGS: BREAST COMPOSITION: There are scattered areas of fibroglandular density (ACR BI-RADS breast composition Category b). RIGHT BREAST: Post lumpectomy changes. No significant masses, suspicious calcifications or other abnormalities are seen. In particular, no suspicious findings adjacent to the skin BB marker placed in the right axillary region. Targeted ultrasound of the right breast was performed at the location of the swelling in the right axilla. The survey did not reveal lymphadenopathy or suspicious masses. Targeted ultrasound of the right breast was performed at the location of the pain as indicated by the patient. The survey throughout the upper outer quadrant did not reveal suspicious findings. MM/MM tomosynthesis diagnostic RT IMPRESSION: RIGHT BREAST: Benign, no evidence of malignancy. In particular, no suspicious findings to accounts for patient's concern of pain and swelling. Clinical follow-up is recommended. Otherwise, patient may return to bilateral screening mammogram expected in October 2025. ASSESSMENT: BI-RADS 2 - Benign Findings RECOMMENDATION: 1 year F/U Results were provided to the patient at time of visit by the technologist. This patient's information was entered into a reminder system with a target due date for their next mammogram. Electronically signed by: Laverne Hutchins MD 06/05/2025 06:04 PM EDT
--- OUTSIDE RECORDS SUMMARY | 2025-06-05 19:28 | XMS_ITS | Encounter Summary ---
Author Organization [facility] Address [address] [facility] [address] [place] [address] Phone Care Team Providers Care Bellstand Attendant Name Role Phone Name, Reynold FAUST Primary Care Provider [phone] Encounter Details Date Type Department Care Team (Late st Contact Info) Description 12/04/2020 Ancillary Orders [facility],Outside Imaging [address] [place], [place] [phone] System, Provider [place] In, [place] [address] Social History Tobacco Use Types Packs/Day Years [...] on file documented as of this encounter Results * MRI Outside Upper Extremity (No Interpretation) (11/08/2020 12:00 AM EST) Narrative SYSTEMGENERATED, DOCUMENTATION - 12/04/2020 12:53 PM EDT This study is for PACS storage only and not for interpretation. us Provider Not In System PhD IMG OUTSIDE IMAGING W /OUT INTERPRETATION Final Result documented in this encounter Visit Diagnoses Not on filedocumented in this encounter Care Teams Bellstand Attendant Relationship Specialty Start Date End Date Name, MD Reynold [address] [place], [place] [phone] PCP - General Geriatric Psychiatry 10/26/19 documented as of this encounter Additional Source Comments The information contained in this document represents components of the legal health record. It is not the complete legal health record.[facility]
--- OUTSIDE RECORDS SUMMARY | 2025-06-05 19:28 | XMS_ITS | Encounter Summary ---
Author Organization [facility] Address [address] [facility] [address] [place] [address] Phone Care Team Providers Care Supervising Film Or Videotape Editor Name Role Phone Name, Reynold FAUST Primary Care Provider [phone] Encounter Details Date Type Department Care Team (Late st Contact Info) Description 12/04/2020 Ancillary Orders [facility],Outside Imaging [address] [place], [place] [phone] System, Provider [place] In, [place] [address] Social History Tobacco Use Types Packs/Day Years [...] documented as of this encounter Results * DXA Outside (No Interpretation) (11/08/2019 12:00 AM EST) Narrative SYSTEMGENERATED, DOCUMENTATION - 12/04/2020 1:05 PM EDT This study is for PACS storage only and not for interpretation. us Provider Not In System PhD IMG OUTSIDE IMAGING W /OUT INTERPRETATION Final Result documented in this encounter Visit Diagnoses Not on filedocumented in this encounter Care Teams Supervising Film Or Videotape Editor Relationship Specialty Start Date End Date Name, MD Reynold [address] [place] [address] [id number] PCP - General Geriatric Psychiatry 10/26/19 documented as of this encounter Additional Source Comments The information contained in this document represents components of the legal health record. It is not the complete legal health record.[facility]
--- OUTSIDE RECORDS SUMMARY | 2025-06-05 19:28 | XMS_ITS | Encounter Summary ---
Author Organization [facility] Address [address] [facility] [address] [place] [address] Phone Care Team Providers Care Hair Spring Winder Name Role Phone Name, Reynold FAUST Primary Care Provider [phone] Encounter Details Date Type Department Care Team (Late st Contact Info) Description 12/04/2020 Ancillary Orders [facility],Outside Imaging [address] [place], [place] [phone] System, Provider Not In, PhD Partners [address] [address] Social History Tobacco Use Types Packs/Day Years [...] documented as of this encounter Results * XR Upper Extremity Outside (No Interpretation) (10/30/2020 12:05 AM EST) Narrative SYSTEMGENERATED, DOCUMENTATION - 12/04/2020 12:55 PM EDT This study is for PACS storage only and not for interpretation. us Provider Not In System PhD IMG OUTSIDE IMAGING W /OUT INTERPRETATION Final Result documented in this encounter Visit Diagnoses Not on filedocumented in this encounter Care Teams Hair Spring Winder Relationship Specialty Start Date End Date Name, MD Reynold [address] [place], [place] [phone] PCP - General Geriatric Psychiatry 10/26/19 documented as of this encounter Additional Source Comments The information contained in this document represents components of the legal health record. It is not the complete legal health record.[facility]
--- OUTSIDE RECORDS SUMMARY | 2025-06-05 19:28 | XMS_ITS | Encounter Summary ---
Author Organization [employer] Address [address] 7[address] [place] [address] Care Team Providers Care Applied Psychology Professor Name Role Phone Name, Reynold FAUST Primary Care Provider [phone] Reason for Visit * Reason Comments Med Refill Encounter Details Date Type Department Care Team ([facility] Contact Info) Description 12/22/2022 Refill [facility] CHC MED & PEDS [address] [place], [place] [phone] Name, MD Reynold [address] [place] [address] Rash Social History Tobacco Use Types Packs/Day [...] Upcoming Encounters Date Type Department Care Team ([facility] Contact Info) Description 07/12/2025 2:00 PM EDT Office Visit [facility] OPTOMETRY [address] [place], [place] [phone] Xiao Cali, IRMA [address] [place] [address] 08/01/2025 9:45 AM EST Office Visit [facility] MEDICINE [address] [place] [address] documented as of this encounter Visit Diagnoses Diagnosis Rash Rash and other nonspecific skin eruption documented in this encounter Care Teams Applied Psychology Professor Relationship Specialty Start Date End Date Name, MD Reynold [address] [place] [address] PCP - General Family Medicine 12/26/15 documented as of this encounter
--- OUTSIDE RECORDS SUMMARY | 2025-06-05 19:28 | XMS_ITS | Encounter Summary ---
Author Organization [employer] Address [address] [facility] 7t [place] [address] Care Team Providers Care Adobe Layer Name Role Phone Name, Reynold FAUST Primary Care Provider [phone] Reason for Visit * Reason Comments Med Refill Encounter Details Date Type Department Care Team (Late Contact Info) Description 04/06/2023 Refill [facility] [address] [place] [phone] Name, MD Reynold [address] [place] [phone] Chronic cough Social History Tobacco Use Types [...] Care Team (Late st Contact Info) Description 07/12/2025 2:00 PM EDT Office Visit [facility] OPTOMETRY [address] [place] [address] Xiao Cali, OD 267 [place] [address] 08/01/2025 9:45 AM EST Office Visit [facility] [address] [place] [address] documented as of this encounter Visit Diagnoses Diagnosis Chronic cough Cough documented in this encounter Care Teams Adobe Layer Relationship Specialty Start Date End Date Name, MD Reynold [address] [place] [address] PCP - General Family Medicine 12/26/15 documented as of this encounter
--- OUTSIDE RECORDS SUMMARY | 2025-06-05 19:28 | XMS_ITS | Encounter Summary ---
Author Organization [facility] Address [address] [facility] [address] [place] [address] Phone Care Team Providers Care Sap Business Objects Developer Name Role Phone Name, Reynold FAUST Primary Care Provider [phone] Reason for Visit * Reason Comments Medication Refill Encounter Details Date Type Department Care Team (Late st Contact Info) Description 04/26/2020 Refill [facility] Rad Onc [address] [place] [address] Izabel Moran MD [address] [place] [phone] [email or web address] Medication Refill Social History Tobacco Use [...] on filedocumented in this encounter Care Teams Sap Business Objects Developer Relationship Specialty Start Date End Date Name, MD Reynold [address] [place] [address] PCP - General Geriatric Psychiatry 10/26/19 documented as of this encounter Additional Source Comments The information contained in this document represents components of the legal health record. It is not the complete legal health record.[facility]
--- OUTSIDE RECORDS SUMMARY | 2025-06-05 19:28 | XMS_ITS | Encounter Summary ---
Author Organization [employer] Address [address] [facility] 7t [place] [address] Care Team Providers Care Horse And Wagon Driver Name Role Phone Name, Reynold FAUST Primary Care Provider [phone] Reason for Visit * Reason Comments Med Refill Encounter Details Date Type Department Care Team (Late Contact Info) Description 03/11/2023 Refill [facility] MEDICINE [address] [place] [address] Name, MD Reynold [address] [place] [phone] Chronic cough Social History Tobacco Use Types [...] Description 07/12/2025 2:00 PM EDT Office Visit [facility] OPTOMETRY [address] [place] [address] Xiao Cali, OD [address] [place] [address] 08/01/2025 9:45 AM EST Office Visit [facility] MEDICINE [address] [place] [address] documented as of this encounter Visit Diagnoses Diagnosis Chronic cough Cough documented in this encounter Care Teams Horse And Wagon Driver Relationship Specialty Start Date End Date Name, MD Reynold [address] [place] [address] PCP - General Family Medicine 12/26/15 documented as of this encounter
--- OUTSIDE RECORDS SUMMARY | 2025-06-05 19:28 | XMS_ITS | Encounter Summary ---
Author Organization [facility] Address [address] [facility] [address] [place] [address] Phone Care Team Providers Care American History Professor Name Role Phone Name, Reynold FAUST Primary Care Provider [phone] Encounter Details Date Type Department Care Team (Late st Contact Info) Description 10/27/2019 Ancillary Orders [facility],Outside Imaging [address] [place] [address] System, Provider Not In, PhD Partners [address] [address] Social History Tobacco Use Types Packs/Day Years Used Date Smoking Tobacco: Never Assessed Comments Unknown Sex and Gender Information Value Date Recorded Sex Assigned at Not on file Legal Sex Female 10:25 AM EST Gender Identity Not on file Sexual Orientation Not on file documented as of this encounter Plan of Treatment Not on file documented as of this encounter Results * US Breast Outside (No Interpretation) (08/31/2019 12:00 AM EST) Narrative SYSTEMGENERATED, DOCUMENTATION - 10/27/2019 11:52 AM EST This study is for PACS storage only and not for interpretation. us Provider Not In System PhD IMG OUTSIDE IMAGING W /OUT INTERPRETATION Final Result documented in this encounter Visit Diagnoses Not on filedocumented in this encounter Care Teams American History Professor Relationship Specialty Start Date End Date Name, MD Reynold [address] [place] [address] PCP - General Geriatric Psychiatry 10/26/19 documented as of this encounter Additional Source Comments The information contained in this document represents components of the legal health record. It is not the complete legal health record.[facility]
--- OUTSIDE RECORDS SUMMARY | 2025-06-05 19:28 | XMS_ITS | Encounter Summary ---
Author Organization [employer] Address [address] [facility] [address] 7[address] [place] [address] Care Team Providers Care Medical Staff Specialist Name Role Phone Name, Reynold FAUST Primary Care Provider [phone] Encounter Details Date Type Department Care Team (Late st Contact Info) Description 10/13/2022 Orders Only [facility] CHC MED & PEDS [address] [place], [place] [phone] Sadia Silva LPN Social History Tobacco Use [...] Description 07/12/2025 2:00 PM EDT Office Visit [facility] OPTOMETRY [address] [place] [address] Xiao Cali, OD [address] [place] [address] 08/01/2025 9:45 AM EST Office Visit [facility] MEDICINE [address] [place] [address] documented as of this encounter Procedures Procedure Name Priority Date/Time Associated Diagnosis Comments CBC WITH AUTO DIFFERENTIAL Routine 11/08/2022 10:25 AM EST HEMOGLOBIN A1C Routine 11/08/2022 10:25 AM EST LIPID PANEL, STANDARD Routine 11/08/2022 10:25 AM EST COMPREHENSIVE METABOLIC PANEL Routine 11/08/2022 10:25 AM EST documented in this encounter Results * Lipid Panel, Standard (11/08/2022 10:25 AM EST) Triglycerides 142 mg/dL [facility] Comment:Desirable Triglyceri de: less than 150 mg/dLBorderline High Triglyceride 150-199 mg/dLHigh Triglyceride: 200-499 mg/dLVery High Triglyceride: greater than or equal to 5OO mg/dL Cholesterol 225 mg/dL [facility] Comment:Desirable Cholestero l: less than 200 mg/dLBorderline High Cholesterol: 200-239 mg/dLHigh Cholesterol: greater than 239 mg/dL LDL Cholesterol Calculated 131 mg/dl [facility] Comment:Desirable LDL: less than 100 mg/dLNear Optimal/Above Optimal LDL: 110- 129 mg/dLBorderline High LDL: 130-159 mg/dLHigh LDL: 160-189 mg/dLVery High LDL: greater than or equal to 190 mg/dL HDL Cholesterol 66 mg/dL [facility] Comment:Desirable HDL: great er than 40 mg/dL Note: This HDL assay may give artificially low results in patients with liver disease. 11/08/2022 10:2 5 AM EST 11/08/2022 10:25 AM EST us [facility] External Provider LAB BLO OD ORDERABLES Final Result [facility] [address] [place] [address] [phone] * (ABNORMAL) Comprehensive Metabolic Panel (11/08/2022 10:25 AM EST) Sodium 143 135 - 145 mmol/L [facility] Potassium 4.1 3.3 - 5.1 mmol/L [facility] Chloride 106 96 - 108 mmol/L [facility] Carbon Dioxide 27 22 - 29 mmol/L [facility] Anion Gap 14 12 - 20 [facility] Urea Nitrogen (BUN) 23(H) 9 - 16 mg/dL [facility] Creatinine, Serum 0.81 0.5 - 1.4 mg/dL [facility] Estimated Glomerular Filt Rate >60 [facility] Comment:NOTE: For -Am erican individuals, multiply the result by 1.210.Chronic Kidney Disease: Estimated GFR < 60 mL/min/1.18v8Dsoliq Kidney Disease: Estimated GFR < 15 mL/min/1.73m2 Glucose 107 60 - 115 mg/dL [facility] Calcium 9.5 8.4 - 10.2 mg/dL [facility] Bilirubin, Total 0.5 0.0 - 1.0 mg/dL [facility] Aspartate Amino Transferase 24 5 - 31 U/L [facility] Alanine Aminotransferase 27 0 - 31 U/L [facility] Total Protein 7.5 6.5 - 8.0 g/dL [facility] Albumin Level 4.2 3.5 - 5.0 g/dL [facility] Alkaline Phosphatase 79 39 - 117 U/L [facility] 11/08/2022 10:2 5 AM EST 11/08/2022 10:25 AM EST [facility] External Provider LAB BLO OD ORDERABLES Final Result [facility] [address] [place] [phone] * Hemoglobin A1c (11/08/2022 10:25 AM EST) Hemoglobin A1c 6.2 % [facility] Comment:Hemoglobin A1C Refer ence Range Adults: 4.8 - 6.0 % Non diabetic: < 6.0 % Goal: < 7.0 %Additional Action Suggested: > 8.0 %Note: Hemoglobin A1c results are invalid for patients with abnormal amounts of HbF. Blood transfusions may impact the HbA1c concentration in the patient sample. Estimated Average Glucose 131 mg/dL [facility] Comment:eAG = Estimated ave rage glucose which is %A1C expressed asaverage glucose, using the formula of the [id number] Glucose study (ADAG), Diabetes Care, Vol.31,#8,Apr. 2007 11/08/2022 10:2 5 AM EST 11/08/2022 10:25 AM EST us [facility] External Provider LAB BLO OD ORDERABLES Final Result [facility] [address] [place] [address] [phone] * (ABNORMAL) CBC auto differential (11/08/2022 10:25 AM EST) White Blood Count 3.9(L) 4.8 - 10.8 X10*3/uL [facility] Red Blood Count 4.47 4.20 - 5.50 X10*6/uL [facility] Hemoglobin 12.2 12.0 - 16.0 g/dl [facility] Hematocrit 38.1 37.0 - 47.0 % [facility] Mean Corpuscular Volume 85.2 80.0 - 98.0 fL [facility] Mean Corpuscular Hemoglobin 27.3 27.0 - 33.0 pg [facility] Mean Corpuscular HGB Conc 32.0 31.0 - 35.0 g/dl [facility] Red Cell Distribution Width 14.4 11.0 - 16.0 % [facility] Platelet Count 178 160 - 400 X10*3/uL [facility] Mean Platelet Volume 11.4 9.4 - 12.3 fL [facility] Neutrophils Percent Auto 65.0 45 - 73 % [facility] Imm Gran Pct Auto 0.3 0.0 - 0.4 % [facility] Lymphocytes Percent Auto 22.4 20 - 40 % [facility] Monocytes Percent Auto 8.7 2 - 11 % [facility] Eosinophils Percent Auto 2.8 0 - 4 % [facility] Basophils Percent Auto 0.8 0 - 2 % [facility] NRBC Pct Auto 0.0 0.0 - 0.2 /100WBC [facility] Neutrophils Absolute Auto 2.6 2.0 - 8.3 x10*3/uL [facility] Imm Gran Abs Auto 0.01 0.00 - 0.03 X10*3/uL [facility] Lymphocytes Absolute Auto 0.9(L) 1.2 - 4.9 X10*3/uL [facility] Monocytes Absolute Auto 0.3 0.1 - 1.2 X10*3/uL [facility] Eosinophils Absolute Auto 0.1 0.0 - 0.4 X10*3/uL [facility] Basophils Absolute Auto 0.0 0.0 - 0.2 X10*3/uL [facility] NRBC Abs Auto 0.000 0.0 - 0.012 X10*3/uL [facility] 11/08/2022 10:2 5 AM EST 11/08/2022 10:25 AM EST us [facility] External Provider LAB BLO OD ORDERABLES Final Result [facility] [address] [place] [address] [phone] documented in this encounter Visit Diagnoses Not on filedocumented in this encounter Care Teams Medical Staff Specialist Relationship Specialty Start Date End Date Name, MD Reynold [address] [place] [phone] PCP - General Family Medicine 12/26/15 documented as of this encounter
--- OUTSIDE RECORDS SUMMARY | 2025-06-05 19:28 | XMS_ITS | Encounter Summary ---
Author Organization [facility] Address [address] [facility] [address] [place] [address] Phone Care Team Providers Care Event Marketing Representative Name Role Phone Name, Reynold FAUST Primary Care Provider [phone] Encounter Details Date Type Department Care Team (Late st Contact Info) Description 10/27/2019 Ancillary Orders [facility],Outside Imaging [address] [place] [address] System, Provider Not In, [facility] [address] [address] Social History Tobacco Use Types Packs/Day Years Used Date Smoking Tobacco: Never Assessed Comments Unknown Sex and Gender Information Value Date Recorded Sex Assigned at Not on file Legal Sex Female 10:25 AM EST Gender Identity Not on file Sexual Orientation Not on file documented as of this encounter Plan of Treatment Not on file documented as of this encounter Results * NM Other Outside (No Interpretation) (10/03/2019 12:05 AM EST) Narrative SYSTEMGENERATED, DOCUMENTATION - 10/27/2019 11:47 AM EST This study is for PACS storage only and not for interpretation. us Provider Not In System PhD [facility] OUTSIDE IMAGING W /OUT INTERPRETATION Final Result documented in this encounter Visit Diagnoses Not on filedocumented in this encounter Care Teams Event Marketing Representative Relationship Specialty Start Date End Date Name, MD Reynold [address] [place] [address] PCP - General Geriatric Psychiatry 10/26/19 documented as of this encounter Additional Source Comments The information contained in this document represents components of the legal health record. It is not the complete legal health record.[facility]
--- OUTSIDE RECORDS SUMMARY | 2025-06-05 19:28 | XMS_ITS | Encounter Summary ---
Author Organization [facility] Address [address] [facility] [address] [place] [phone] Phone Care Team Providers Care Cryogenics Repairer Name Role Phone Name, Reynold FAUST Primary Care Provider [phone] Encounter Details Date Type Department Care Team (Late st Contact Info) Description 10/27/2019 Ancillary Orders [facility],Outside Imaging [address] [place] [address] System, Provider Not In, [facility] [address] [address] Social History Tobacco Use Types Packs/Day Years [...] Results * US Breast Outside (No Interpretation) (12/04/2014 12:00 AM EDT) Narrative SYSTEMGENERATED, DOCUMENTATION - 10/27/2019 11:54 AM EST This study is for PACS storage only and not for interpretation. us Provider Not In System PhD [facility] OUTSIDE IMAGING W /OUT INTERPRETATION Final Result documented in this encounter Visit Diagnoses Not on filedocumented in this encounter Care Teams Cryogenics Repairer Relationship Specialty Start Date End Date Name, MD Reynold [address] [place] [address] PCP - General Geriatric Psychiatry 10/26/19 documented as of this encounter Additional Source Comments The information contained in this document represents components of the legal health record. It is not the complete legal health record.[facility]
--- OUTSIDE RECORDS SUMMARY | 2025-06-05 19:28 | XMS_ITS | Encounter Summary ---
Author Organization [facility] Address [address] [facility] [address] [place] [phone] Phone Care Team Providers Care Senior Insight Manager International Name Role Phone Name, Reynold FAUST Primary Care Provider [phone] Encounter Details Date Type Department Care Team (Late st Contact Info) Description 10/27/2019 Ancillary Orders [facility],Outside Imaging [address] [place] [address] System, Provider Not In, [facility] [address] [address] Social History Tobacco Use Types Packs/Day Years [...] Results * US Breast Outside (No Interpretation) (05/01/2014 12:00 AM EDT) Narrative SYSTEMGENERATED, DOCUMENTATION - 10/27/2019 11:56 AM EST This study is for PACS storage only and not for interpretation. us Provider Not In System PhD [facility] OUTSIDE IMAGING W /OUT INTERPRETATION Final Result documented in this encounter Visit Diagnoses Not on filedocumented in this encounter Care Teams Senior Insight Manager International Relationship Specialty Start Date End Date Name, MD Reynold [address] [place] [address] PCP - General Geriatric Psychiatry 10/26/19 documented as of this encounter Additional Source Comments The information contained in this document represents components of the legal health record. It is not the complete legal health record.[facility]
--- OUTSIDE RECORDS SUMMARY | 2025-06-05 19:28 | XMS_ITS | Clinical Summary ---
Author Organization [employer] Address [address] [place] [address] Care Team Providers Care Cloth Bolt Bander Name Role Phone Name, Reynold FAUST Primary Care Provider [phone] Allergies Active Allergy Reactions Criticality Noted Date Comments Folic Acid Rash Low 11/16/2023 Other Reaction(s): Rash on neck Medications * This document contains information received from the source organization and may not represent a complete record from that organization. LORazepam (Ativan) 0.5 MG tablet Take 0.5 mg by mouth if needed each day for anxiety. 09/21/19 22 Active dexlansoprazole (Dexilant) [address] capsule [...] topically 2 times daily. 12/03/19 24 Active Blood Pressure kit Use twice a day 1 kit 02/08/20 25 Active cloNIDine (Catapres) 0.2 MG tabletIndication s:Essential hypertension TAKE 1 TABLET BY MOUTH EVERY DAY 90 tablet 1 02/28/20 25 Active hydrocortisone 1 % creamIndications :Rash APPLY TO AFFECTED AREA TWICE A DAY 56.8 g 3 05/09/20 25 Active traMADol (Ultram) 50 MG tabletIndication s:Chronic pain syndrome TAKE 1 TABLET BY MOUTH IN THE MORNING, AT NOON AND AT BEDTIME IF NEEDED FOR SEVERE PAIN 84 tablet 05/15/20 25 025 Active ibuprofen 600 MG tablet TAKE 1 TABLET BY MOUTH EVERY 8 HOURS NEEDED FOR MILD TO MODERATE PAIN 60 tablet 05/31/20 25 Active hydrocortisone 1 % creamIndications :Rash APPLY TO AFFECTED AREA TWICE A DAY 56.8 g 3 01/17/20 25 025 Discontinued traMADol (Ultram) 50 MG tabletIndication s:Chronic pain syndrome TAKE 1 TABLET BY MOUTH IN THE MORNING, AT NOON AND AT BEDTIME IF NEEDED FOR SEVERE PAIN 84 tablet 04/14/20 25 025 Discontinued ibuprofen 600 MG tablet TAKE 1 TABLET (600 MG) BY MOUTH EVERY 8 (EIGHT) HOURS IF NEEDED FOR MILD PAIN OR MODERATE PAIN. 60 tablet 04/18/20 25 025 Discontinued ibuprofen 600 MG tablet TAKE 1 TABLET BY MOUTH EVERY 8 HOURS NEEDED FOR MILD PAIN OR MODERATE PAIN. 60 tablet 05/15/20 25 025 Discontinued Hospital, Clinic, or Other Facility Administered Medication Ordered Dose Route Frequency Start Date End Date Status lidocaine (Xylocaine) 2 % injection 20 mgIndications:Neoplasm of uncertain behavior 20 mg INFILTRATION Once 12/09/2024 A ctive Active Problems Problem Noted Date Diagnosed Date Moderate depressive disorder 04/17/2025 Assessment & Plan (04/17/2025 10:53 AM EDT): During IBH Consult Cece presenting with depressed mood, hopelessness, irritable mood, loss of interests/pleasure , sense of isolation/loneliness , change in appetite or weight unintentional weight loss , changes in sleep difficulty falling asleep and difficulty staying asleep , fatigue/loss of energy, difficulty concentrating; for a period of 18+ mo, for most or all symptoms in the context of illness or family illness. Pt with presentation of sxs as described above mainly associated with her chronic medical conditions. Her rheumatoid arthritis conditions contributes with increase of her depression on days where pain is not manageable. She is currently engaged with mental health services and has a therapist and psychiatrist. Diarrhea 12/02/2024 Axillary adenitis 12/02/2024 Ductal carcinoma in situ (DCIS) of breast 2024 H. 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 Agreement renewed. - 01/31/25: Group visit - utox/pill count wnl - 03/28/25: Group visit - utox/pill count wnl (BPI) - 05/30/25: Group visit - utox/pill count wnl Assessment & Plan (03/28/2025 4:32 PM EDT): Timeline: - 11/01/24: Group Visit - utox/pill tox wnl. Agreement renewed. - 01/31/25: Group visit - utox/pill count wnl - 03/28/25: Group visit - utox/pill count wnl (BPI) Assessment & Plan (01/31/2025 4:43 PM EDT): Timeline: - 11/01/24: Group Visit - utox/pill tox wnl. Agreement renewed. - 01/31/25: Group visit - utox/pill count wnl Assessment & Plan (11/01/2024 4:41 PM EST): Timeline: - 11/01/24: Group Visit - utox/pill tox wnl. Agreement renewed. GAGANDEEP positive 12/10/2023 Chronic cough 12/10/2023 Esophageal dysphagia 12/10/2023 Overview (12/11/2023): [address] [id number] Operative Note Signed Patient: Cece Espinosa MR#: [id number] : 1965 Acct:[id number] Age/Sex: 58 / F Loc: .[facility] Attending Dr: Kylee Mejias MD cc: [...] or CR reflux precautions Dictated By: Kylee Mejais MD Signed By: <Electronically signed by Kylee [...] had an allergic reaction to folic acid Assessment & Plan (05/30/2025 12:35 PM EDT): - Continues following with [facility] Rheum - Good engagement and participation with Group Medical Visit model - Encouraged multifactorial approach to pain control including pharm and non- pharm modalities - UTOX and Pill count as expected Assessment & Plan (03/28/2025 4:30 PM EDT): - continues following with [facility] Rheum Assessment & Plan (01/31/2025 4:44 PM EDT): - continues following with [facility] Rheum 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 [...] Diagnosed Date Resolved Date Abnormal mammogram 12/10/2023 4 Abnormal MRI, breast 12/10/2023 024 ALBERT (acute kidney injury) 12/10/2023 Cutaneous fungal infection 12/10/2023 0 12/11/2023 Bronchitis 12/10/2023 12/11/2023 H. 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 Date Type Department Care Team Description 05/31/2025 Refill [facility] [address] [place] [address] NameReynold MD 05/30/2025 9:45 AM EDT Office Visit [facility] [address] [place] [address] Kristen Williamson, STEVO Rheumatoid arthritis involving multiple sites, unspecified whether rheumatoid factor present ([facility]) (Primary Dx); Chronic pain syndrome; Dietary counseling; Exercise counseling; [facility] (current) use of opiate analgesic 05/30/2025 Travel 05/29/2025 Travel 05/13/2025 Refill [facility] [address] [place] [address] Humaira Ng NP Chronic pain syndrome 05/13/2025 Refill [facility] [address] [place] [address] Reynold Crowell MD 05/13/2025 Refill [facility] [address] [place] [address] Paula Joy NP 05/09/2025 Refill [facility] [address] [place] [address] Reynold Crowell MD Rash 05/02/2025 Telephone [facility] [address] [place] [address] Reynold Crowell MD Durable Medical Equipment 04/27/2025 9:00 AM EDT Office Visit [facility] [address] [place] [address] Elisabet Greer DDS 04/20/2025 Travel 04/17/2025 Refill [facility] [address] [place] [address] Reynold Crowell MD 04/14/2025 Refill [facility] [address] [place] [address] Reynold Crowell MD Chronic pain syndrome 04/03/2025 Telephone [facility] [address] [place] [address] Reynold Crowell MD Durable Medical Equipment 03/30/2025 9:00 AM EDT Office Visit [facility] [address] [place] [address] Chucky Elizabethine 03/29/2025 9:30 AM EDT Office Visit [facility] [address] [place] [address] Reynold Crowell MD Essential hypertension (Primary Dx); Osteoarthritis of right knee, unspecified osteoarthritis type; Rheumatoid arthritis, involving unspecified site, unspecified whether rheumatoid factor present (CMS/HCC); Ear discomfort, right; NSAID long-term use; Blurred vision 03/29/2025 Orders Only GENERIC EXTERNAL DATA DEPARTMENT Provider, Generic External Data 03/29/2025 Refill [facility] [address] [place] [phone] Reynold Crowell MD 03/29/2025 Travel 03/28/2025 9:45 AM EDT Office Visit [facility] [address] [place] [phone] Phalen, Kristen, BODY JOINER Rheumatoid arthritis involving multiple sites, unspecified whether rheumatoid factor present ([facility]) (Primary Dx); [facility] (current) use of opiate analgesic 03/28/2025 Telephone [facility] [address] [place] [address] Reynold Crowell MD CHART PREP 03/28/2025 Telephone [facility] [address] [place] [phone] Leeanna Paulino RN BPI Scoring 03/28/2025 Travel 03/21/2025 Travel 03/16/2025 Telephone [facility] [address] [place] [phone] Leeanna Paulino RN Recommend DATA DESIGNER Tier 2 03/15/2025 Refill [facility] [address] [place] [address] Name, MD Reynold Chronic pain syndrome from Last 3 Months Immunizations Immunization Administration Dates Next Due Hep A, Adult [...] Sign Reading Time Taken Comments Blood Pressure 164/96 03/30/2025 9:13 AM EDT Pulse 84 03/30/2025 9:13 AM EDT Temperature 36.1 C (96.9 F) 03/29/2025 9:17 AM EDT Respiratory Rate 12 03/29/2025 9:17 AM EDT Oxygen Saturation 97% 03/29/2025 9:17 AM EDT Inhaled Oxygen Concentration - - Weight 67 kg (147 lb 12.8 oz) 03/29/2025 9:17 AM EDT Height 149.9 cm (4' 11 ) 03/29/2025 9:17 AM EDT Body Mass Index 29.85 03/29/2025 9:17 AM EDT Plan of Treatment Upcoming Encounters Date Type Department Care Team (Late st Contact Info) Description 07/12/2025 2:00 PM EDT Office Visit [facility] [address] [place], [place] [phone] Xiao Cali, OD [address] [place] [address] 08/01/2025 9:45 AM EST Office Visit [facility] [address] [place] [address] Health Maintenance Due Date Last Done Comments CT Colonography 1965 Colonoscopy 1965 Colorectal Cancer Screening 1965 FIT DNA/Cologuard 1965 FIT 1965 FOBT 1965 HIV Screening 1965 Sigmoidoscopy 1965 DTaP/Tdap/Td Vaccines (1 - Tdap) 02/25/1984 Pneumococcal Vaccine: 50+ Years (1 of 1 - PCV) 2015 Zoster Vaccines (1 of 2) 2015 Hepatitis B Vaccines (2 of 3 - Risk 3-dose series) 08/26/2017 07/29/2017 Hepatitis A Vaccines (2 of 2 - Risk 2-dose series) 01/26/2018 07/29/2017 SDOH Screening 12/10/2024 12/11/2023 RSV Patients and Patients Aged 60 years or older (1 - Risk 60-74 years 1-dose series) 2025 COVID-19 Vaccine ( - season) 2025 Influenza Vaccine (#1) 2025 Dental Oral Exam 10/01/2025 03/30/2025, 08/2024, 10/10/2020, Additional history exists Dental Prophylaxis 10/01/2025 03/30/2025, 10/10/2020 Depression Monitoring 10/18/2025 04/17/2025, 025 Diabetes: Hemoglobin A1C 11/16/2025 025, 12/12/2023, 11/08/2022 Cervical Cancer Screening 11/23/2025 HPV/Cotest 11/23/2025 11/23/2024, 11/0 05/2022, 07/30/2022, Additional history exists Pap Smear 11/23/2025 11/23/2024, 07/30/2022 Alcohol/Substance Use Screening 03/29/2026 03/29/2025 Dental X-Ray: Bitewings 03/31/2026 03/30/20 25, 12/01/2023, 10/10/2020, Additional history exists Tobacco Screening 04/27/2026 04/27/2025 Disability Screening 05/29/2026 05/29/2025 Mammogram 11/10/2026 06/05/2025, 10/23, 04/13/2024, Additional history exists Dental X-Ray: Full Mouth 12/01/2026 024, 10/29/2023, 07/06/2019 Lipid Panel 05/14/2029 05/14/2024, 11/08/2022 Hepatitis C Screening Completed 10/31/2024, 023 HIB Vaccines Aged Out No longer eligi ble based on patient's age to complete this topic HPV Vaccines Aged Out No longer eligi ble based on patient's age to complete this topic IPV Vaccines Aged Out No longer eligi ble based on patient's age to complete this topic Meningococcal B Vaccine Aged Out No l onger eligible based on patient's age to complete [...] Priority Date/Time Associated Diagnosis Comments BI MAMMOGRAM DIAGNOSTIC TOMOSYNTHESIS RIGHT Routine 06/05/2025 2:14 PM EDT POCT ANIKA-14 URINE DRUG SCREEN Routine 05/30/2025 10:22 AM EDT Chronic pain syndrome CASE PRESENTATION, DETAILED AND EXTENSIVE TREATMENT PLANNING Routine 04/27/2025 9:00 AM EDT LIMITED ORAL EVALUATION - PROBLEM FOCUSED Routine 04/27/2025 9:00 AM EDT PERIODIC ORAL EVALUATION - ESTABLISHED PATIENT Routine 03/30/2025 9:00 AM EDT CASE PRESENTATION, DETAILED AND EXTENSIVE TREATMENT PLANNING Routine 03/30/2025 9:00 AM EDT TOPICAL APPLICATION OF FLUORIDE - EXCLUDING VARNISH Routine 03/30/2025 9:00 AM EDT INTRAORAL - PERIAPICAL FIRST RADIOGRAPHIC IMAGE Routine 03/30/2025 9:00 AM EDT BITEWINGS - 4 RADIOGRAPHIC IMAGES Routine 03/30/2025 9:00 AM EDT PROPHYLAXIS - ADULT Routine 03/30/2025 9 :00 AM EDT SED RATE BY MODIFIED WESTERGREN Routine 03/29/2025 9:54 AM EDT C-REACTIVE PROTEIN Routine 03/29/2025 9: 54 AM EDT COMPREHENSIVE METABOLIC PANEL Routine 03/29/2025 9:54 AM EDT C-REACTIVE PROTEIN Routine 03/29/2025 9: 54 AM EDT URINALYSIS, COMPLETE, WITH REFLEX TO CULTURE Routine 03/29/2025 9:54 AM EDT CBC WITH AUTO DIFFERENTIAL Routine 03/29/2025 9:54 AM EDT POCT ANIKA-14 URINE DRUG SCREEN Routine 03/28/2025 9:52 AM EDT Rheumatoid arthritis involving multiple sites, unspecified whether rheumatoid factor present ([facility]) 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 PAP SMEAR Routine 11/23/2024 9:23 AM EST Routine cervical smear HPV DNA, LOW/HIGH RISK Routine 11/23/2024 12:00 AM EST POCT GLYCATED HEMOGLOBIN, TOTAL Routine 11/16/2024 2:28 PM EST Prediabetes HEPATITIS PANEL, GENERAL Routine 10/31/2024 2:04 PM EST LIPID PANEL, STANDARD Routine 05/14/2024 9:34 AM EDT Essential hypertension INTRAORAL - COMPLETE SERIES OF RADIOGRAPHIC IMAGES Routine 12/01/2023 8:00 AM EDT Pain, dental Full coverage crown needed for tooth at risk for fracture Dental caries from Last 3 Months or Most Recently Relevant to Health Maintenance Results * BI Mammogram Diagnostic Tomosynthesis Right (06/05/2025 2:14 PM EDT) Anatomical Region Laterality Modality Breast Right Mammography 06/05/2025 2:14 PM EDT Narrative 06/05/2025 6:07 PM EDT [facility] [address] [place] [address] Mammography Report Signed Patient: Cece Espinosa MR#: [id number] : 1965 Acct:[id number] Age/Sex: 60 / F ADM Date: 06/05/25 Loc: HO.MAMMO Attending Dr: Phillip Acuna MD Ordering Physician: Phillip Acuna MD Results: 2Beni gn Findings Date of Service: 06/05/25 Follow Up: 1 Year From Orig ina Mammogram Procedure(s): MM tomosynthesis diagnostic RT Accession Number(s): [id number] cc: Phillip Acuna MD; Name,Reynold FAUST Reason For Exam: D05.10 - Intraductal carcinoma in situ of unspecified breast EXAMINATION(S): 1. MM DIAGNOSTIC DIGITAL BREAST TOMOSYNTHESIS, RIGHT 2. 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 -Right breast pain at the level of the scar in the lateral breast. -Swelling/lump in the right axilla. COMPARISON: Comparison made to multiple prior, most recent November 10, 2024, and most remote October 28, 2022. TECHNIQUE: Digital breast tomosynthesis is performed in both the mediolateral oblique and craniocaudal views along with computer-aided detection (CAD). Synthesized 2D images are generated from the tomosynthesis. FINDINGS: BREAST COMPOSITION: There are scattered areas of fibroglandular density (ACR BI-RADS breast composition Category b). RIGHT BREAST: Post lumpectomy changes. No significant masses, suspicious calcifications or other abnormalities are seen. In particular, no suspicious findings adjacent to the skin BB marker placed in the right axillary region. Targeted ultrasound of the right breast was performed at the location of the swelling in the right axilla. The survey did not reveal lymphadenopathy or suspicious masses. Targeted ultrasound of the right breast was performed at the location of the pain as indicated by the patient. The survey throughout the upper outer quadrant did not reveal suspicious findings. MM/MM tomosynthesis diagnostic RT IMPRESSION: RIGHT BREAST: Benign, no evidence of malignancy. In particular, no suspicious findings to accounts for patient's concern of pain and swelling. Clinical follow-up is recommended. Otherwise, patient may return to bilateral screening mammogram expected in October 2025. ASSESSMENT: BI-RADS 2 - Benign Findings RECOMMENDATION: 1 year F/U Results were provided to the patient at time of visit by the technologist. This patient's information was entered into a reminder system with a target due date for their next mammogram. Electronically signed by: Laverne Hutchins MD 06/05/2025 06:04 PM EDT Dictated By: Laverne Hutchins MD Signed By: <Electronically signed by Laverne Hutchins MD in OV> 06/05/25 1804 DD/ 1414 TD/TT: 06/05/25 1417 Preschool Program Director: Procedure Note Donotuseinterpreter, Image - 06/05/2025 [facility] [address] [place], [place] [address] Mammography Report Signed Patient: Isaías Maurer,Honorioann#: [id number] : 1965Acct:[id number] Age/Sex: 60 / FADM Date: 06/05/25 Loc: HO.MAMMO Attending Dr: Phillip Acuna MD Ordering Physician: Phillip Acuna MDResults: 2Beni gn Findings Date of Service: 06/05/25Follow Up: 1 Year From Orig ina Mammogram Procedure(s): MM tomosynthesis diagnostic RT Accession Number(s): [id number] cc: Phillip Acuna MD; Name,Reynold FAUST Reason For Exam: D05.10 - Intraductal carcinoma in situ of unspecifiedbreast EXAMINATION(S): 1. MM DIAGNOSTIC DIGITAL BREAST TOMOSYNTHESIS, RIGHT 2. 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 -Right breast pain at the level of the scar in the lateral breast. -Swelling/lump in the right axilla. COMPARISON: Comparison made to multiple prior, most recent November 10, 2024, and most remote October 28, 2022. TECHNIQUE: Digital breast tomosynthesis is performed in both the mediolateral oblique and craniocaudal views along with computer-aided detection (CAD). Synthesized 2D images are generated from the tomosynthesis. FINDINGS: BREAST COMPOSITION: There are scattered areas of fibroglandular density (ACR BI-RADS breast composition Category b). RIGHT BREAST: Post lumpectomy changes. No significant masses, suspicious calcifications or other abnormalities are seen. In particular, no suspicious findings adjacent to the skin BB marker placed in the right axillary region. Targeted ultrasound of the right breast was performed at the location of the swelling in the right axilla. The survey did not reveal lymphadenopathy or suspicious masses. Targeted ultrasound of the right breast was performed at the location of the pain as indicated by the patient. The survey throughout the upper outer quadrant did not reveal suspicious findings. MM/MM tomosynthesis diagnostic RT IMPRESSION: RIGHT BREAST: Benign, no evidence of malignancy. In particular, no suspicious findings to accounts for patient's concern of pain and swelling. Clinical follow-up is recommended. Otherwise, patient may return to bilateral screening mammogram expected in October 2025. ASSESSMENT: BI-RADS 2 - Benign Findings RECOMMENDATION: 1 year F/U Results were provided to the patient at time of visit by the technologist. This patient's information was entered into a reminder system with a target due date for their next mammogram. Electronically signed by: Laverne Hutchins MD 06/05/2025 06:04 PM EDT Workstation: [employer] Dictated By: Laverne Hutchins MD Signed By: <Electronically signed by Laverne Hutchins MD in OV> 06/05/25 1804 DD/ 1414 TD/TT: 06/05/25 1417 Preschool Program Director: [facility] External Provider IMG BI PROCEDURES Final Result * POCT ANIKA-14 Urine Drug Screen (05/30/2025 10:22 AM EDT) Only the most recent of2 resultswithin the time period is included. THC Negative Negative Cocaine Screen, Urine Negative Negative Opiate Screen, Urine Negative Negative Methamphetamine Screen Urine Negative Negative Amphetamine Screen, Urine Negative Negative Benzodiazepines Screen, Urine Negative Negative Barbiturate Screen, Urine Negative Negative Methadone Screen, Urine Negative Negative Buprenophine Screen, Urine Negative Negative TCA, Urine Negative Negative MDMA Urine Negative Negative ng/mL Oxycodone Screen, Urine Negative Negative Phencyclidine (PCP), Urine Negative Negative Propoxyphene, Urine Negative Negative Fentanyl, Urine Negative Negative Urine Urine specimen obtained by clean catch procedure / Unknown 05/30/2025 10:22 AM EDT Narrative Susy Cervantes RN - 05/30/2025 10:22 AM EDT .UT[employer] cup Lot#[id number] Exp. 06/27/26 Internal Pass Control Kristen Williamson BODY JOINER POINT OF CARE TEST ENTER/EDIT ORDERABLES Final Result * (ABNORMAL) Urinalysis, Complete, with Reflex to Culture (03/29/2025 9:54 AM EDT) Color Urine Yellow [facility] Appearance Urine Cloudy [facility] PH 5.5 5.0 - 9.0 [facility] Glucose Urine UA Negative Negative mg/dL [facility] Urine Blood Trace(A) Negative [facility] Specific [place] - Urine 1.025 1.005 - 1.025 [facility] Urine Protein Trace Neg-Trace mg/dL [facility] Urine Ketones Trace Negative mg/dL [facility] Nitrite Urine Negative Negative [facility] Leukocyte Esterase Urine Negative Negative [facility] RBC Urine 0-2 0 - 2 /HPF [facility] Urine WBC 0-5 0 - 5 /HPF [facility] Urine Squamous Epithelial Cell 3-5 0 - 2 /HPF [facility] CALCIUM OXALATE CRYSTAL, UR Present [facility] Urine Bacteria None Seen None Seen [facility] Hyaline Casts, Urine 0-2 0 - 2 /LPF [facility] 03/29/2025 9:54 AM EDT 03/29/2025 12:04 PM EDT Narrative [facility] - 03/29/2025 12:22 PM EDT Urine, Clean Catch us Generic External Data Provider LAB URINE ORDERAB LES Final Result [facility] [address] [place] [phone] * (ABNORMAL) CBC auto differential (03/29/2025 9:54 AM EDT) White Blood Count 4.3(L) 4.8 - 10.8 X10*3/uL [facility] Red Blood Count 4.47 4.20 - 5.50 X10*6/uL [facility] Hemoglobin 12.4 12.0 - 16.0 g/dl [facility] Hematocrit 38.7 37.0 - 47.0 % [facility] Mean Corpuscular Volume 86.6 80.0 - 98.0 fL [facility] Mean Corpuscular Hemoglobin 27.7 27.0 - 33.0 pg [facility] Mean Corpuscular HGB Conc 32.0 31.0 - 35.0 g/dl [facility] Red Cell Distribution Width 14.7 11.0 - 16.0 % [facility] Platelet Count 180 160 - 400 X10*3/uL [facility] Mean Platelet Volume 12.9(H) 9.4 - 12.3 fL [facility] Neutrophils Percent Auto 60.2 45 - 73 % [facility] Imm Gran Pct Auto 0.2 0.0 - 0.4 % [facility] Lymphocytes Percent Auto 24.0 20 - 40 % [facility] Monocytes Percent Auto 11.8(H) 2 - 11 % [facility] Eosinophils Percent Auto 3.1 0 - 4 % [facility] Basophils Percent Auto 0.7 0 - 2 % [facility] NRBC Pct Auto 0.0 0.0 - 0.2 /100WBC [facility] Neutrophils Absolute Auto 2.6 2.0 - 8.3 x10*3/uL [facility] Imm Gran Abs Auto 0.01 0.00 - 0.03 X10*3/uL [facility] Lymphocytes Absolute Auto 1.0(L) 1.2 - 4.9 X10*3/uL [facility] Monocytes Absolute Auto 0.5 0.1 - 1.2 X10*3/uL [facility] Eosinophils Absolute Auto 0.1 0.0 - 0.4 X10*3/uL [facility] Basophils Absolute Auto 0.0 0.0 - 0.2 X10*3/uL [facility] NRBC Abs Auto 0.000 0.0 - 0.012 X10*3/uL [facility] 03/29/2025 9:54 AM EDT 03/29/2025 11:53 AM EDT us Generic External Data Provider LAB BLOOD ORDERAB LES Final Result [facility] [address] [place] [address] [phone] * (ABNORMAL) Sed Rate by Modified Ankur (03/29/2025 9:54 AM EDT) Erythrocyte Sedimentation Rate 67(H) 0 - 20 MM/HR [facility] Comment:Patients with polycy themia and many hemoglobin abnormalitiesmay have depressed sed rates whereas patients with anemiamay have elevated sed rates. 03/29/2025 9:54 AM EDT 03/29/2025 11:53 AM EDT Generic External Data Provider LAB BLOOD ORDERAB LES Final Result Performing Organization Address [facility] Co de Phone Number [facility] [address] [place] [phone] * (ABNORMAL) C-reactive Protein (03/29/2025 9:54 AM EDT) Only the most recent of2 resultswithin the time period is included. Pathologist [facility] C Reactive Protein 0.85(H) < or = 0.50 mg/dL [facility] 03/29/2025 9:54 AM EDT 03/29/2025 12:00 PM EDT [facility]GI Medical External Data Provider LAB BLOOD ORDERAB LES Final Result Performing Organization Address [facility] de Phone Number [facility] [address] [place] [phone] * (ABNORMAL) Comprehensive Metabolic Panel (03/29/2025 9:54 AM EDT) Pathologist [facility] Sodium 141 135 - 145 mmol/L [facility] Potassium 3.5 3.3 - 5.1 mmol/L [facility] Chloride 105 96 - 108 mmol/L [facility] Carbon Dioxide 29 22 - 29 mmol/L [facility] Anion Gap 11(L) 12 - 20 [facility] Urea Nitrogen (BUN) 19(H) 9 - 16 mg/dL [facility] Creatinine, Serum 0.73 0.5 - 1.4 mg/dL [facility] Estimated Glomerular Filt Rate >60 [facility] Comment:Chronic Kidney Disea se: Estimated GFR < 60 mL/min/1.64n8Hnpduw Kidney Disease: Estimated GFR < 15 mL/min/1.73m2 Glucose 92 60 - 115 mg/dL [facility] Calcium 9.3 8.4 - 10.2 mg/dL [facility] Bilirubin, Total 0.3 0.0 - 1.0 mg/dL [facility] Aspartate Amino Transferase 33(H) 5 - 31 U/L [facility] Alanine Aminotransferase 32(H) 0 - 31 U/L [facility] Total Protein 7.8 6.5 - 8.0 g/dL [facility] Albumin Level 4.4 3.5 - 5.0 g/dL [facility] Alkaline Phosphatase 72 39 - 117 U/L [facility] 03/29/2025 9:54 AM EDT 03/29/2025 12:00 PM EDT us Generic External Data Provider LAB BLOOD ORDERAB LES Final Result [facility] [address] [place] [phone] * Pap Smear (11/23/2024 9:23 AM EST) Swab Cervix uteri structure / Unknown 11/23/2024 9:23 AM EST 11/24/2024 6:00 AM EST Narrative [facility] - 11/28/2024 8:33 AM EDT ----- ------- Name: Cece Espinosa Age/Sex: 59/F : 1965 Unit#: [id number] Attend Dr: KONSTANTIN DAVIS CNM Re11/23/24 Status: DEP REF Location: [id number] Disch: ----- ------- SPEC : [id number] RECD: 11/24/24 STATUS: RAUL RUSSO NUM: [id number] LEVI: 11/23/[address] [facility] [address]: KONSTANTIN DAVIS CNM ENTERED: 11/24/24 SP TYPE: Pap Smr OTHR DR: ORDERED: Pap Smear Interpretation Satisfactory for evaluation. Negative for intraepithelial lesion or malignancy. No endocervical cells seen. HPV High Risk: Negative HPV Genotyping 16: Negative HPV Genotyping 18: Negative Clinical Information LMP: Unknown date Previous PAP test: 07/2022, NIL/HPV+ Material Received Cervix ----- ------- Signed (signature on file) MUNIR Fonseca (ASCP) 11/28/24 0833 ----- ------- END OF REPORT Konstantin Davis CNM LAB CYTOLOGY ORDERABLES F inal Result Performing Organization Address [facility]/ZIP Co de Phone Number [facility] [address] [place] [phone] * HPV DNA, Low/High Risk (11/23/2024 12:00 AM EST) HPV High Risk Negative Negative [facility] HPV Genotype 16 Negative Negative [facility] HPV Genotype 18 Negative Negative [facility] Comment:HPV testing performe d at [facility] (CLIA#[id number]), [address] [place] [address].Testing for HPV was performed using the [employer] MATY 6800system. The presence of HPV in [...] 11/24/2024 8:5 6 AM EST Konstantin Davis [facility] LAB BLOOD ORDERABLES Megan l Result Performing Organization Address [facility]/ZIP Co de Phone Number [facility] [address] [place] [phone] * (ABNORMAL) POCT HGB A1C (11/16/2024 2:28 PM EST) Hemoglobin A1C 6.2(A) 4.0 - 6.0 % QC Media Lot # [id number] Lot# Expiration Date [id number] Blood 11/16/2024 2:28 PM EST Reynold Crowell MD POINT OF CARE TEST ENTER/EDIT OR DERABLES Final Result * Hepatitis Panel, General (10/31/2024 2:04 PM EST) Hepatitis A IgM Nonreactive Nonreactive [facility] Comment:IgM antibodies to CORONADO V not detected; does not exclude earlyacute or recovered HAV infection. ~Hepatitis B Surface Antibody REACTIVE Nonreactive [facility] Comment:REACTIVE: > 11.99 mI U/mL Hepatitis B Core Antibody Nonreactive Nonreactive [facility] Hepatitis C Antibody Nonreactive Nonreactive [facility] Comment:Antibodies to HCV no t detected; does not exclude early acuteHCV infection. Hepatitis B Surface Ag Negative Negative [facility] 10/31/2024 2:04 PM EST 10/31/2024 2:04 PM EST us Generic External Data Provider LAB BLOOD ORDERAB LES Final Result [facility] [address] [place] [phone] [phone] * (ABNORMAL) Lipid Panel, Standard (05/14/2024 9:34 AM EDT) Triglycerides 132 <150 mg/dL [facility] Comment:Desirable Triglyceri de: less than 150 mg/dLBorderline High Triglyceride 150-199 mg/dLHigh Triglyceride: 200-499 mg/dLVery High Triglyceride: greater than or equal to 5OO mg/dL Cholesterol 218(H) <200 mg/dL [facility] Comment:Desirable Cholestero l: less than 200 mg/dLBorderline High Cholesterol: 200-239 mg/dLHigh Cholesterol: greater than 239 mg/dL LDL Cholesterol Calculated 130(H) <100 mg/dL [facility] Comment:Desirable LDL: less than 100 mg/dLNear Optimal/Above Optimal LDL: 110- 129 mg/dLBorderline High LDL: 130-159 mg/dLHigh LDL: 160-189 mg/dLVery High LDL: greater than or equal to 190 mg/dL HDL Cholesterol 62 >40 mg/dL [facility] Comment:Desirable HDL: great er than 40 mg/dL Note: This HDL assay may give artificially low results in patients with liver disease. Blood Venous blood specimen / Unknown 05/14/2024 9:34 AM EDT 05/14/2024 9:34 AM EDT Reynold Crowell MD LAB BLOOD ORDERABLES Final Resul t [facility] [address] [place] [address] [phone] from Last 3 Months or Most Recently Relevant to Health Maintenance Insurance [facility] < 65 [facility] Care Teams Cloth Bolt Bander Relationship Specialty Start Date End Date Name, MD Reynold [address] [place] [phone] PCP - General Family Medicine 12/26/15
--- OUTSIDE RECORDS SUMMARY | 2025-06-05 19:28 | XMS_ITS | Encounter Summary ---
Author Organization [facility] Address [address] 7[address] [place] [address] Care Team Providers Care Orthopedic Designer Name Role Phone Name, Reynold FAUST Primary Care Provider [phone] Reason for Visit * Reason Onset Date Comments Med Refill Reschedule TILE TRIMMER RV she cancelled 02/02/23 06/05/20 Encounter Details Date Type Department Care Team (Late st Contact Info) Description 06/05/2023 Refill [facility] [address] [place] [address] Name, MD Reynold [address] [place] [address] Chronic pain syndrome Social History Tobacco Use [...] 06/08/2023 10:55 AM EDT Pt was cancelled TILE TRIMMER RV on 02/02/23 and has not rescheduled. TC to pt, no answer. L/M requesting she call to reschedule her TILE TRIMMER RV she cancelled. documented in this encounter Plan of Treatment Upcoming Encounters Date Type Department Care Team (Late st Contact Info) Description 07/12/2025 2:00 PM EDT Office Visit [facility] [address] [place] [address] Garthdeepti Xiao, OD [address] [place] [address] 08/01/2025 9:45 AM EST Office Visit [facility] [address] [place] [address] documented as of this encounter Visit Diagnoses Diagnosis Chronic pain syndrome documented in this encounter Care Teams Orthopedic Designer Relationship Specialty Start Date End Date Name, MD Reynold [address] [place] [address] PCP - General Family Medicine 12/26/15 documented as of this encounter
--- OUTSIDE RECORDS SUMMARY | 2025-06-05 19:28 | XMS_ITS | Encounter Summary ---
Author Organization [employer] Address [address] [facility] 7t [place] [address] Care Team Providers Care Cullet Washer Name Role Phone Name, Reynold FAUST Primary Care Provider [phone] Encounter Details Date Type Department Care Team (Late Contact Info) Description 10/07/2023 Abstract [facility] [address] [place] [phone] Name, MD Reynold [address] [place] [address] Social History Tobacco Use Types Packs/Day Years [...] Description 07/12/2025 2:00 PM EDT Office Visit [facility] [address] [place], [place] [phone] Xiao Cali OD [address] [place] [address] 08/01/2025 9:45 AM EST Office Visit [facility] [address] [place] [address] documented as of this encounter Visit Diagnoses Not on filedocumented in this encounter Care Teams Cullet Washer Relationship Specialty Start Date End Date Name, MD Reynold [address] [place] [address] PCP - General Family Medicine 12/26/15 documented as of this encounter
--- OUTSIDE RECORDS SUMMARY | 2025-06-05 19:28 | XMS_ITS | Clinical Summary ---
Author Organization [facility] Address [address] [facility] [address] [place] [address] Phone Care Team Providers Care Freight Broker Agent Name Role Phone Name, Reynold FAUST Primary Care Provider [phone] Allergies No known active allergies Medications cloNIDine HCl (CATAPRES) 0.2 MG tablet Take 0.2 mg by mouth 2 (two) times a day. Active omeprazole (PRILOSEC) 40 MG capsule Take 40 mg by mouth daily. Active vitamin E 400 UNIT capsule Take 400 Units by mouth daily. Active QUEtiapine (SEROQUEL) 50 MG tablet Take 50 mg by mouth nightly at bedtime. Active ibuprofen (ADVIL,MOTRIN) 600 MG tablet Take 600 mg by mouth every 6 (six) hours as needed for pain (specific location in comments). Active traMADol (ULTRAM) 50 mg tablet Take 50 mg by mouth every 6 (six) hours as needed for pain (specific location in comments). Active diclofenac sodium (VOLTAREN) 1 % GelIndications:os teoarthritis Apply 2 g topically 4 (four) times a day as needed. Indications: joint damage causing pain and loss of function Active acetaminophen (TYLENOL) 325 mg tablet Take 650 mg by mouth every 6 (six) hours as needed for mild pain. 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 Not on jose armando e 01/16/2023 Are you concerned about learning? Not on file 01/16/2023 No 01/16/2023 No 01/16/2023 Digital Access Answer Date Recorded No 02/17/2023 No 02/17/2023 Reliable internet access at home? Not on file 02/17/2023 Device with a working camera? Not on file Comments Unknown Sex and Gender Information Value Date Recorded Sex Assigned at Not on file Legal Sex Female 10:25 AM EST Gender Identity Not on file Sexual Orientation Not on file Last Filed Vital Signs Vital Sign Reading Time Taken Comments Blood Pressure 147/85 11/30/2019 2:20 PM EDT Pulse 93 11/30/2019 2:20 PM EDT Temperature 37 C (98.6 F) 03/22/2020 10:37 AM EDT Respiratory Rate - - Oxygen Saturation 99% 11/30/2019 2:20 PM EDT Inhaled Oxygen Concentration - - Weight 73.8 kg (162 lb 9.6 oz) 11/30/2019 2:20 P M EDT Height - - Body Mass Index - - Plan of Treatment Health Maintenance Due Date Last Done Comments Adult Td,Tdap Booster 1965 LIPID PANEL 1965 DEPRESSION SCREENING 1977 SMOKING Hx and SMOKELESS TOBACCO SCREENING 1978 HEPATITIS C SCREENING 1983 HIV ONE-TIME SCREENING (18-6 5 YEARS) 1983 PNEUMOCOCCAL VACCINES (50+ years) (1 of 2 - PCV) 02/25/1984 ZOSTER VACCINES (1 of 2) 02/25/1984 PAP SMEAR 1986 COLOGUARD 2010 COLONOSCOPY 2010 COLORECTAL CANCER SCREENING 2010 FIT TEST 2010 FOBT 2010 SIGMOIDOSCOPY 2010 VIRTUAL COLONOSCOPY 2010 MAMMOGRAM 10/24/2022 10/24/2020, 10/03/2019 INFLUENZA VACCINE (#1) 2025 COVID-19 VACCINE ( - 2023-2 5 season) 2025 RSV VACCINE (1 - 1-dose 75+ series) 02/25/2040 HEPATITIS A VACCINES Aged Out 07/29/2017 No long er eligible based on patient's age to complete this topic HIB VACCINES Aged Out No longer eligi ble based on patient's age to complete this topic MENINGOCOCCAL VACCINES (ACWY) Aged Out No longer eligible based on patient's age to complete this topic MENINGOCOCCAL VACCINES (B) Aged Out N o longer eligible based on patient's age to complete this topic Medical Devices Not on file Procedures Procedure Name Priority Date/Time Associated Diagnosis Comments BI MAMMOGRAM OUTSIDE (NO INTERPRETATION) Routine 10/24/2020 12:00 AM EST from Last 3 Months or Most Recently Relevant to Health Maintenance Results * Mammogram Outside (No Interpretation) (10/24/2020 12:00 AM EST) Narrative SYSTEMGENERATED, DOCUMENTATION - 12/04/2020 12:57 PM EDT This study is for PACS storage only and not for interpretation. us Provider Not In System PhD IMG OUTSIDE IMAGING W /OUT INTERPRETATION Final Result from Last 3 Months or Most Recently Relevant to Health Maintenance Insurance * Guarantor: Cece Espinosa Account Type Relation to Patient Date of Phone Billing Address Personal/Family Self [address] [place] [address] [facility] ONE CARE MEDICARE REPLACEMENT * Guarantor: Cece Espinosa Account Type Relation to Patient Date of Phone Billing Address Personal/Family Self [address] [place] [address] [facility] MEDICARE REPLACEMENT * Guarantor: Cece Espinosa Account Type Relation to Patient Date of Phone Billing Address Personal/Family Self [address] [place] [address] [facility] MEDICARE REPLACEMENT * Guarantor: Cece Espinosa Account Type Relation to Patient Date of Phone Billing Address Personal/Family Self [address] [place] [address] [facility] MED[facility] REPLACEMENT * Guarantor: Cece Espinosa Account Type Relation to Patient Date of Phone Billing Address Personal/Family Self [address] [place] [address] [facility] MEDICARE REPLACEMENT [facility] MEDICARE REPLACEMENT [facility] MEDICARE REPLACEMENT [facility] CARE MEDICARE REPLACEMENT [facility] MEDICARE REPLACEMENT Care Teams Freight Broker Agent Relationship Specialty Start Date End Date Name, MD Reynold [address] [place] [phone] PCP - General Geriatric Psychiatry 10/26/19 Additional Source Comments The information contained in this document represents components of the legal health record. It is not the complete legal health record.[facility]
--- OUTSIDE RECORDS SUMMARY | 2025-06-05 19:28 | XMS_ITS | Encounter Summary ---
Author Organization [facility] Address [address] [facility] [address] [place] [phone] Phone Care Team Providers Care Bleach Chlorinator Name Role Phone Name, Reynold FAUST Primary Care Provider [phone] Encounter Details Date Type Department Care Team (Late st Contact Info) Description 12/04/2020 Ancillary Orders [facility],Outside Imaging [address] [place], [place] [phone] System, Provider Not In, [facility] [address] [address] Social History Tobacco Use Types Packs/Day Years [...] as of this encounter Results * US Abdomen Outside (No Interpretation) (06/07/2020 12:00 AM EDT) Narrative SYSTEMGENERATED, DOCUMENTATION - 12/04/2020 12:58 PM EDT This study is for PACS storage only and not for interpretation. us Provider Not In System PhD IMG OUTSIDE IMAGING W /OUT INTERPRETATION Final Result documented in this encounter Visit Diagnoses Not on filedocumented in this encounter Care Teams Bleach Chlorinator Relationship Specialty Start Date End Date Name, MD Reynold [address] [place], [place] [phone] PCP - General Geriatric Psychiatry 10/26/19 documented as of this encounter Additional Source Comments The information contained in this document represents components of the legal health record. It is not the complete legal health record.[facility]
--- OUTSIDE RECORDS SUMMARY | 2025-06-05 19:28 | XMS_ITS | Encounter Summary ---
Author Organization [facility] Address [address] [facility] [address] [place] [address] Phone Care Team Providers Care Returns Clerk Name Role Phone Name, Reynold FAUST Primary Care Provider [phone] Encounter Details Date Type Department Care Team (Late st Contact Info) Description 10/27/2019 Ancillary Orders [facility],Outside Imaging [address] [place] [address] System, Provider Not In, [facility] [address] [address] Social History Tobacco Use Types Packs/Day Years [...] Results * US Breast Outside (No Interpretation) (11/28/2014 12:00 AM EDT) Narrative SYSTEMGENERATED, DOCUMENTATION - 10/27/2019 11:55 AM EST This study is for PACS storage only and not for interpretation. us Provider Not In System PhD IMG OUTSIDE IMAGING W /OUT INTERPRETATION Final Result documented in this encounter Visit Diagnoses Not on filedocumented in this encounter Care Teams Returns Clerk Relationship Specialty Start Date End Date Name, MD Reynold [address] [place] [address] PCP - General Geriatric Psychiatry 10/26/19 documented as of this encounter Additional Source Comments The information contained in this document represents components of the legal health record. It is not the complete legal health record.[facility]
--- OUTSIDE RECORDS SUMMARY | 2025-06-05 19:28 | XMS_ITS | Encounter Summary ---
Author Organization [facility] Address [address] [facility] [address] [place] [address] Phone Care Team Providers Care Sustainable Products Marketing Manager Name Role Phone Name, Reynold FAUST Primary Care Provider [phone] Encounter Details Date Type Department Care Team (Late st Contact Info) Description 2020 Ancillary Orders [facility],Outside Imaging [address] [place], [place] [phone] System, Provider Not In, [facility] [address] [address] Social History Tobacco Use Types Packs/Day Years [...] Results * US Breast Outside (No Interpretation) (02/08/2020 12:00 AM EDT) Narrative SYSTEMGENERATED, DOCUMENTATION - 2020 11:03 AM EDT This study is for PACS storage only and not for interpretation. us Provider Not In System PhD IMG OUTSIDE IMAGING W /OUT INTERPRETATION Final Result documented in this encounter Visit Diagnoses Not on filedocumented in this encounter Care Teams Sustainable Products Marketing Manager Relationship Specialty Start Date End Date Name, MD Reynold [address] [place] [phone] PCP - General Geriatric Psychiatry 10/26/19 documented as of this encounter Additional Source Comments The information contained in this document represents components of the legal health record. It is not the complete legal health record.[facility]
--- OUTSIDE RECORDS SUMMARY | 2025-06-05 19:28 | XMS_ITS | Encounter Summary ---
Author Organization [facility] Address [address] [facility] [address] [place] [phone] Phone Care Team Providers Care Postmaster Relief Name Role Phone Name, Reynold FAUST Primary Care Provider [phone] Encounter Details Date Type Department Care Team (Late st Contact Info) Description 12/04/2020 Ancillary Orders [facility],Outside Imaging [address] [place], [place] [phone] System, Provider Not In, [facility] [address] [address] Social History Tobacco Use Types Packs/Day Years [...] documented as of this encounter Results * Mammogram Outside (No Interpretation) (10/24/2020 12:00 AM EST) Narrative SYSTEMGENERATED, DOCUMENTATION - 12/04/2020 12:57 PM EDT This study is for PACS storage only and not for interpretation. us Provider Not In System PhD IMG OUTSIDE IMAGING W /OUT INTERPRETATION Final Result documented in this encounter Visit Diagnoses Not on filedocumented in this encounter Care Teams Postmaster Relief Relationship Specialty Start Date End Date Name, MD Reynold [address] [place], [place] [phone] PCP - General Geriatric Psychiatry 10/26/19 documented as of this encounter Additional Source Comments The information contained in this document represents components of the legal health record. It is not the complete legal health record.[facility]
--- OUTSIDE RECORDS SUMMARY | 2025-06-05 19:28 | XMS_ITS | Encounter Summary ---
Author Organization [employer] [facility] Address [address] [facility] 7[address] [place] [address] Care Team Providers Care Wash Crew Person Name Role Phone Name, Reynold FAUST Primary Care Provider [phone] Encounter Details Date Type Department Care Team (Latest Contact Info) Description 10/10/2020 Abstract [facility] CONVERSIONS Dental, Provider, DDS Social History [...] 07/12/2025 2:00 PM EDT Office Visit [facility] OPT[facility] [address] [place] [address] Xiao Cali, IRMA [address] [place] [address] 08/01/2025 9:45 AM EST Office Visit [facility] MEDIC[facility] [address] [place] [address] documented as of this encounter Visit Diagnoses Not on filedocumented in this encounter Care Teams Wash Crew Person Relationship Specialty Start Date End Date Name, MD Reynold [address] [place] [address] PCP - General Family Medicine 12/26/15 documented as of this encounter
--- OUTSIDE RECORDS SUMMARY | 2025-06-05 19:28 | XMS_ITS | Encounter Summary ---
Author Organization [employer] Address [address] 7t [place] [address] Care Team Providers Care Conveyor Attendant Name Role Phone Name, Reynold FAUST Primary Care Provider [phone] Reason for Visit * Reason Comments Med Refill Encounter Details Date Type Department Care Team ([facility] st Contact Info) Description 02/28/2024 Refill [facility] MEDICINE [address] [place], [place] [phone] Name, MD Reynold 230 [place] [address] Chronic cough Social History Tobacco Use Types [...] Description 07/12/2025 2:00 PM EDT Office Visit [facility] OPTOMETRY [address] [place] [address] Xiao Cali, OD 267 [place] [address] 08/01/2025 9:45 AM EST Office Visit [facility] MEDICINE 230 [place] [address] documented as of this encounter Visit Diagnoses Diagnosis Chronic cough Cough documented in this encounter Additional Health Concerns Assessment Noted Time PHQ-9 Depression Total Score: 7 12/11/19 24 11:10 AM EDT documented as of this encounter Care Teams Conveyor Attendant Relationship Specialty Start Date End Date Name, MD Reynold 230 [place] [address] PCP - General Family Medicine 12/26/15 documented as of this encounter
--- OUTSIDE RECORDS SUMMARY | 2025-06-05 19:28 | XMS_ITS | Encounter Summary ---
Author Organization [facility] Address [address] [facility] [address] [place] [address] Phone Care Team Providers Care Lidder Name Role Phone Name, Reynold FAUST Primary Care Provider [phone] Encounter Details Date Type Department Care Team (Late st Contact Info) Description 10/27/2019 Ancillary Orders [facility],Outside Imaging [address] [place] [address] System, Provider Not In, PhD Partners [address] [address] Social History Tobacco Use Types Packs/Day Years [...] Results * US Breast Outside (No Interpretation) (02/04/2018 12:00 AM EDT) Narrative SYSTEMGENERATED, DOCUMENTATION - 10/27/2019 11:53 AM EST This study is for PACS storage only and not for interpretation. us Provider Not In System PhD IMG OUTSIDE IMAGING W /OUT INTERPRETATION Final Result documented in this encounter Visit Diagnoses Not on filedocumented in this encounter Care Teams Lidder Relationship Specialty Start Date End Date Name, MD Reynold 230 [place] [address] PCP - General Geriatric Psychiatry 10/26/19 documented as of this encounter Additional Source Comments The information contained in this document represents components of the legal health record. It is not the complete legal health record.[facility]
--- OUTSIDE RECORDS SUMMARY | 2025-06-05 19:28 | XMS_ITS | Encounter Summary ---
Author Organization [employer] Address [address] 7t [place] [address] Care Team Providers Care Store Administrative Assistant Name Role Phone Name, Reynold FAUST Primary Care Provider [phone] Reason for Visit * Reason Onset Date Comments Nurse Triage 08/16/2024 Encounter Details Date Type Department Care Team ([facility] st Contact Info) Description 08/16/2024 Telephone [facility] MEDICINE 230 [place] [address] Name, MD Reynold 230 [place] [address] Nurse Triage Social History Tobacco Use Types [...] is your housing situation today? I have julieht hook 12/11/[address] you [...] transportation but, will call to come to [facility] for Thursday evening. Pt agrees with disposition [...] Description 07/12/2025 2:00 PM EDT Office Visit [facility] OPTOMETRY [address] [place] [address] Xiao Cali, OD 267 [place] [address] 08/01/2025 9:45 AM EST Office Visit [facility] MEDICINE 230 [place] [address] documented as of this encounter Visit Diagnoses Not on filedocumented in this encounter Additional Health Concerns Assessment Noted Time PHQ-9 Depression Total Score: 7 12/11/19 24 11:10 AM EDT documented as of this encounter Care Teams Store Administrative Assistant Relationship Specialty Start Date End Date Name, MD Reynold 230 [place] [address] PCP - General Family Medicine 12/26/15 documented as of this encounter
--- OUTSIDE RECORDS SUMMARY | 2025-06-05 19:28 | XMS_ITS | Encounter Summary ---
Author Organization [facility] Address [address] [place] [address] Phone Care Team Providers Care Product Development Specialist Name Role Phone Name, Reynold FAUST Primary Care Provider [phone] Encounter Details Date Type Department Care Team (Late st Contact Info) Description 12/04/2020 Ancillary Orders [facility],Outside Imaging [address] [place] [address] System, Provider [place] In, [place] [address] Social History Tobacco Use Types Packs/Day Years [...] documented as of this encounter Results * CT Abdomen/Pelvis Outside (No Interpretation) (01/25/2020 12:00 AM EDT) Narrative SYSTEMGENERATED, DOCUMENTATION - 12/04/2020 12:59 PM EDT This study is for PACS storage only and not for interpretation. us Provider Not In System PhD IMG OUTSIDE IMAGING W /OUT INTERPRETATION Final Result documented in this encounter Visit Diagnoses Not on filedocumented in this encounter Care Teams Product Development Specialist Relationship Specialty Start Date End Date Name, MD Reynold 230 [place], [place] [phone] PCP - General Geriatric Psychiatry 10/26/19 documented as of this encounter Additional Source Comments The information contained in this document represents components of the legal health record. It is not the complete legal health record.[facility]
--- OUTSIDE RECORDS SUMMARY | 2025-06-05 19:28 | XMS_ITS | Encounter Summary ---
Author Organization [employer] Address [address] 7[address] [place] [address] Care Team Providers Care Stoper Name Role Phone Name, Reynold FAUST Primary Care Provider [phone] Reason for Visit * Reason Comments Med Refill Encounter Details Date Type Department Care Team ([facility] st Contact Info) Description 06/11/2024 Refill [facility] MEDICINE 230 [place], [place] [phone] Name, MD Reynold 230 [place] [address] Essential hypertension Social History Tobacco Use Types [...] Description 07/12/2025 2:00 PM EDT Office Visit [facility] OPTOMETRY 267 [place] [address] Xiao Cali, OD 267 [place] [address] 08/01/2025 9:45 AM EST Office Visit [facility] MEDICINE 230 [place] [address] documented as of this encounter Visit Diagnoses Diagnosis Essential hypertension Unspecified essential hypertension documented in this encounter Additional Health Concerns Assessment Noted Time PHQ-9 Depression Total Score: 7 12/11/19 24 11:10 AM EDT documented as of this encounter Care Teams Stoper Relationship Specialty Start Date End Date Name, MD Reynold 230 [place] [address] PCP - General Family Medicine 12/26/15 documented as of this encounter
--- OUTSIDE RECORDS SUMMARY | 2025-06-05 19:28 | XMS_ITS | Encounter Summary ---
Author Organization [employer] Address [address] [facility] 7t [place] [address] Care Team Providers Care Reinforced Concrete Inspector Name Role Phone Name, Reynold FAUST Primary Care Provider [phone] Reason for Visit * Reason Comments Med Refill Encounter Details Date Type Department Care Team (Late st Contact Info) Description 04/02/2023 Refill [facility] MEDICINE [address] [place] [address] Name, MD Reynold [address] [place] [address] Chronic cough Social History Tobacco Use Types [...] Description 07/12/2025 2:00 PM EDT Office Visit [facility] OPTOMETRY [address] [place] [address] Xiao Cali, OD 267 [place] [address] 08/01/2025 9:45 AM EST Office Visit [facility] MEDICINE [address] [place] [address] documented as of this encounter Visit Diagnoses Diagnosis Chronic cough Cough documented in this encounter Care Teams Reinforced Concrete Inspector Relationship Specialty Start Date End Date Name, MD Reynold 230 [place] [address] PCP - General Family Medicine 12/26/15 documented as of this encounter
--- OUTSIDE RECORDS SUMMARY | 2025-06-05 19:28 | XMS_ITS | Encounter Summary ---
Author Organization [employer] Address [address] 7t [place] [address] Care Team Providers Care Carbon Furnace Operator Name Role Phone Name, Reynold FAUST Primary Care Provider [phone] Reason for Visit * Reason Comments Med Refill Encounter Details Date Type Department Care Team ([facility] st Contact Info) Description 05/31/2025 Refill [facility] MEDICINE 230 [place], [place] [phone] Name, MD Reynold 230 [place] [address] Social History Tobacco Use Types Packs/Day Years [...] Description 07/12/2025 2:00 PM EDT Office Visit [facility] OPTOMETRY [address] [place] [address] Xiao Cali, OD 267 [place] [address] 08/01/2025 9:45 AM EST Office Visit [facility] MEDICINE 230 [place] [address] documented as of this encounter Visit Diagnoses Not on filedocumented in this encounter Additional Health Concerns Assessment Noted Time PHQ-9 Depression Total Score: 9 04/17/20 25 10:41 AM EDT documented as of this encounter Care Teams Carbon Furnace Operator Relationship Specialty Start Date End Date Name, MD Reynold 230 [place] [address] PCP - General Family Medicine 12/26/15 documented as of this encounter
--- OUTSIDE RECORDS SUMMARY | 2025-06-05 19:28 | XMS_ITS | Encounter Summary ---
Author Organization [facility] Address [address] [facility] [address] [place] [address] Phone Care Team Providers Care Screen Maker Name Role Phone Name, Reynold FAUST Primary Care Provider [phone] Encounter Details Date Type Department Care Team (Late st Contact Info) Description 12/04/2020 Ancillary Orders [facility],Outside Imaging 30 [place], [place] [phone] System, Provider Not In, PhD Partners [address] [address] Social History Tobacco Use Types Packs/Day Years [...] XR Upper Extremity Outside (No Interpretation) (10/30/2020 12:00 AM EST) Narrative SYSTEMGENERATED, DOCUMENTATION - 12/04/2020 12:54 PM EDT This study is for PACS storage only and not for interpretation. us Provider Not In System PhD IMG OUTSIDE IMAGING W /OUT INTERPRETATION Final Result documented in this encounter Visit Diagnoses Not on filedocumented in this encounter Care Teams Screen Maker Relationship Specialty Start Date End Date Name, MD Reynold 230 [place], [place] [address] PCP - General Geriatric Psychiatry 10/26/19 documented as of this encounter Additional Source Comments The information contained in this document represents components of the legal health record. It is not the complete legal health record.[facility]
--- OUTSIDE RECORDS SUMMARY | 2025-06-05 19:28 | XMS_ITS | Encounter Summary ---
Author Organization [email or web address] Address [address] [facility] 7t [place] [address] Care Team Providers Care Indian Nanny Name Role Phone Name, Reynold FAUST Primary Care Provider [phone] Encounter Details Date Type Department Care Team (Late st Contact Info) Description 11/11/2022 Orders Only [facility] MEDICINE [address] [place] [address] Valeria Heredia LPN Social History Tobacco Use [...] Description 07/12/2025 2:00 PM EDT Office Visit [facility] OPTOMETRY 267 [place] [address] TarkaXiao, OD 267 [place] [address] 08/01/2025 9:45 AM EST Office Visit [facility] MEDICINE [address] [place] [address] documented as of this encounter Procedures Procedure Name Priority Date/Time Associated Diagnosis Comments XR CHEST 2 VIEWS Routine 11/28/2022 4:19 PM EST documented in this encounter Results * XR Chest 2 Views (11/28/2022 4:19 PM EST) Anatomical Region Laterality Modality Chest Radiographic Milla ging 11/28/2022 4:19 PM EST Narrative 11/29/2022 12:42 PM EST [address] [address] XRay Report Signed Patient: Cece Espinosa MR#: [id number] : 1965 Acct:[id number] Age/Sex: 57 / F ADM Date: 11/28/22 Loc: XRZENON Attending Dr: Reynold Crowell MD Ordering Physician: Reynold Crowell MD Date of Service: 11/28/22 Procedure(s): XR chest 2V Accession Number(s): [id number] cc: Reynold Crowell MD EXAMINATION: XR CHEST [...] in OV> 11/29/22 1239 DD/ 1619 TD/TT: Inspector Penetrant: DELEON Procedure Note Donotuseinterpreter, Image - 11/29/[address] [address] XRay Report Signed Patient: Cece EspinosaMR#: [id number] : 1965Acct:[id number] Age/Sex: 57 / FADM Date: 11/28/22 Loc: KINA Attending Dr: Reynold Crowell MD Ordering Physician: Reynold Crowell MD Date of Service: 11/28/22 Procedure(s): XR chest 2V Accession Number(s): [id number] cc: NameReynold MD EXAMINATION: XR CHEST CLINICAL INFORMATION: Chronic [...] Barrios MD Signed By: <Electronically signed by aZn Barrios MD in OV> 11/29/22 1239 DD/ 1619 TD/TT: Inspector Penetrant: DELEON [facility] External Provider IMG XR PROCEDURES Final Result documented in this encounter Visit Diagnoses Not on filedocumented in this encounter Care Teams Indian Nanny Relationship Specialty Start Date End Date Name, MD Reynold 230 [place] [address] PCP - General Family Medicine 12/26/15 documented as of this encounter
--- OUTSIDE RECORDS SUMMARY | 2025-06-05 19:28 | XMS_ITS | Encounter Summary ---
Author Organization [employer] Address [address] [facility] 7t [place] [address] Care Team Providers Care Sticker Hand Name Role Phone Name, Reynold FAUST Primary Care Provider [phone] Encounter Details Date Type Department Care Team ([facility] st Contact Info) Description 12/15/2024 Orders Only [facility] 230 [place] [address] Provider, MD Mally Social History Tobacco Use [...] the past 12 months, has t he [employer], gas, oil or water company threatened to [...] Description 07/12/2025 2:00 PM EDT Office Visit [facility] OPTOMETRY 267 [place], [place] [phone] Xiao Cali, OD 267 [place] [address] 08/01/2025 9:45 AM EST Office Visit [facility] MEDICINE 230 [place] [address] documented as of this encounter Procedures Procedure [...] documented as of this encounter Care Teams Sticker Hand Relationship Specialty Start Date End Date Name, MD Reynold 230 [place] [address] PCP - General Family Medicine 12/26/15 documented as of this encounter
--- OUTSIDE RECORDS SUMMARY | 2025-06-05 19:28 | XMS_ITS | Encounter Summary ---
Author Organization [email or web address] Address [address] 7t [place] [address] Care Team Providers Care Correspondence Representative Name Role Phone Name, Reynold FAUST Primary Care Provider [phone] Reason for Visit * Reason Comments Med Refill Encounter Details Date Type Department Care Team ([facility] st Contact Info) Description 05/13/2025 Refill [facility] MEDICINE 230 [place], [place] [phone] Name, MD Reynold 230 [place] [address] Social History Tobacco Use Types Packs/Day Years [...] 2:00 PM EDT Office Visit [facility] OPTOMETRY [address] [place] [address] Xiao Cali, OD 267 [place] [address] 08/01/2025 9:45 AM EST Office Visit [facility] MEDICINE 230 [place] [address] documented as of this encounter Visit Diagnoses Not on filedocumented in this encounter Additional Health Concerns Assessment Noted Time PHQ-9 Depression Total Score: 9 04/17/20 25 10:41 AM EDT documented as of this encounter Care Teams Correspondence Representative Relationship Specialty Start Date End Date Name, MD Reynold 230 [place] [address] PCP - General Family Medicine 12/26/15 documented as of this encounter
--- OUTSIDE RECORDS SUMMARY | 2025-06-05 19:28 | XMS_ITS | Encounter Summary ---
Author Organization [employer] Address [address] 7t [place] [address] Care Team Providers Care Field Sales Engineer Name Role Phone Name, Reynold FAUST Primary Care Provider [phone] Reason for Visit * Reason Onset Date Comments New Med Request 2024 Encounter Details Date Type Department Care Team ([facility] st Contact Info) Description 2024 Telephone [facility] MEDICINE 230 [place] [address] Name, MD Reynold 230 [place] [address] New Med Request Social History Tobacco Use [...] T/C to pt. For below message through MarketB[employer] interpreters id - [id number], pt. Verbally greed and understood. * Telephone [...] EDT Office Visit [facility] OPTOMETRY [address] [place] [address] Xiao Cali, OD 267 [place] [address] 08/01/2025 9:45 AM EST Office Visit [facility] MEDICINE 230 [place] [address] documented as of this encounter Visit Diagnoses Not on filedocumented in this encounter Additional Health Concerns Assessment Noted Time PHQ-9 Depression Total Score: 7 12/11/19 24 11:10 AM EDT documented as of this encounter Care Teams Field Sales Engineer Relationship Specialty Start Date End Date Name, MD Reynold 230 [place] [address] PCP - General Family Medicine 12/26/15 documented as of this encounter
--- OUTSIDE RECORDS SUMMARY | 2025-06-05 19:28 | XMS_ITS | Encounter Summary ---
Author Organization [employer] Address [address] 7t [place] [address] Care Team Providers Care Certified Health Education Specialist Name Role Phone Name, Reynold FAUST Primary Care Provider [phone] Encounter Details Date Type Department Care Team (Late Contact Info) Description 03/30/2023 Orders Only [facility] [address] [place], [place] [phone] Sadia Silva LPN Social History Tobacco Use [...] Department Care Team (Late Contact Info) Description 07/12/2025 2:00 PM EDT Office Visit [facility] OPTOMETRY [address] [place] [address] Xiao Cali, OD 267 [place], [place] [phone] 08/01/2025 9:45 AM EST Office Visit [facility] MEDICINE 230 [place] [address] documented as of this encounter Visit Diagnoses Not on filedocumented in this encounter Care Teams Certified Health Education Specialist Relationship Specialty Start Date End Date Name, MD Reynold 230 [place] [address] PCP - General Family Medicine 12/26/15 documented as of this encounter
--- OUTSIDE RECORDS SUMMARY | 2025-06-05 19:28 | XMS_ITS | Encounter Summary ---
Author Organization [facility] Address [address] [facility] [address] [place] [address] Phone Care Team Providers Care Inspector And Tester Name Role Phone Name, Reynold FAUST Primary Care Provider [phone] Encounter Details Date Type Department Care Team (Late st Contact Info) Description 10/27/2019 Ancillary Orders [facility],Outside Imaging 30 [place] [address] System, Provider Not In, PhD Partners [address] [address] Social History Tobacco Use Types Packs/Day Years [...] encounter Results * Mammogram Outside (No Interpretation) (10/03/2019 12:00 AM EST) Narrative SYSTEMGENERATED, DOCUMENTATION - 10/27/2019 11:45 AM EST This study is for PACS storage only and not for interpretation. us Provider Not In System PhD IMG OUTSIDE IMAGING W /OUT INTERPRETATION Final Result documented in this encounter Visit Diagnoses Not on filedocumented in this encounter Care Teams Inspector And Tester Relationship Specialty Start Date End Date Name, MD Reynold 230 [place] [address] PCP - General Geriatric Psychiatry 10/26/19 documented as of this encounter Additional Source Comments The information contained in this document represents components of the legal health record. It is not the complete legal health record.[facility]
--- OUTSIDE RECORDS SUMMARY | 2025-06-05 19:28 | XMS_ITS | Encounter Summary ---
Author Organization [employer] Address [address] [facility] 7t [place] [address] Care Team Providers Care Farm Products Shipper Name Role Phone Name, Reynold FAUST Primary Care Provider [phone] Reason for Visit * Reason Comments Med Refill Encounter Details Date Type Department Care Team (Late Contact Info) Description 03/13/2023 Refill [facility] MEDICINE [address] [place] [address] Name, MD Reynold [address] [place] [address] Chronic cough Social History Tobacco Use Types [...] PM EDT Office Visit [facility] OPTOMETRY [address] [place] [address] Xiao Cali, OD 267 [place] [address] 08/01/2025 9:45 AM EST Office Visit [facility] MEDICINE [address] [place] [address] documented as of this encounter Visit Diagnoses Diagnosis Chronic cough Cough documented in this encounter Care Teams Farm Products Shipper Relationship Specialty Start Date End Date Name, MD Reynold 230 [place] [address] PCP - General Family Medicine 12/26/15 documented as of this encounter
--- OUTSIDE RECORDS SUMMARY | 2025-06-05 19:28 | XMS_ITS | Encounter Summary ---
Author Organization [employer] Address [address] 7t [place] [address] Care Team Providers Care Superintendent Marine Name Role Phone Name, Reynold FAUST Primary Care Provider [phone] Reason for Visit * Reason Onset Date Comments partial adjustment made elsewhere 11/04/2024 Encounter Details Date Type Department Care Team ([facility] st Contact Info) Description 11/04/2024 Telephone [facility]ULT DENTAL 230 [place] [address] Elisabet Greer, DDS 230 [place] [address] partial adjustment made elsewhere Social History Tobacco [...] were not fashioned by our clinic. DR Janelle carries [email or web address] [facility] [place] for insurance and we accept [email or web address] [place] insurance in our facilities documented in this encounter Plan of Treatment Upcoming Encounters Date Type Department Care Team (Late st Contact Info) Description 07/12/2025 2:00 PM EDT Office Visit [facility] OPTOMETRY 267 [place] [address] TarkaXiao, OD 267 [place] [address] 08/01/2025 9:45 AM EST Office Visit [facility] MEDICINE 230 [place] [address] documented as of this encounter Visit Diagnoses Not on filedocumented in this encounter Additional Health Concerns Assessment Noted Time PHQ-9 Depression Total Score: 7 12/11/19 24 11:10 AM EDT documented as of this encounter Care Teams Superintendent Marine Relationship Specialty Start Date End Date Name, MD Reynold 230 [place] [address] PCP - General Family Medicine 12/26/15 documented as of this encounter
== END 2025-06-05 14:09 | disposition home or self-care (01) ==
LOC: HO.MAMMO 14:08
PROVIDERS: PCP Internal Medicine Geriatric Medicine; Visit Provider Surgery
DX: I88.9 Nonspecific lymphadenitis, unspecified (principal); D05.11 Intraductal carcinoma in situ of right breast; D05.12 Intraductal carcinoma in situ of left breast
CPT/HCPCS: 76642; 77061; 77065

== ENCOUNTER → 2025-06-05 14:30 | Outpatient (BNV) | payer OTHER, SELFPAY | PROVIDERS: PCP Internal Medicine Geriatric Medicine; Visit Provider Radiology Body Imaging | DX: D05.10 Intraductal carcinoma in situ of unspecified breast (principal) | CPT/HCPCS: 76642; 77065; G0279 ==

== ENCOUNTER → 2025-06-17 07:05 | Outpatient (BNV) | payer OTHER, SELFPAY | PROVIDERS: PCP Internal Medicine Geriatric Medicine; Visit Provider Radiology Diagnostic Radiology | DX: R91.1 Solitary pulmonary nodule (principal) | CPT/HCPCS: 71250 ==

== ENCOUNTER 2025-06-17 07:06 | Outpatient (REF) | payer OTHER, SELFPAY ==
--- OUTSIDE RECORDS SUMMARY | 2025-06-17 07:08 | XMS_ITS | Encounter Summary ---
Author Organization [facility] Address [address] [facility] [address] [place] [address] Phone Care Team Providers Care Vehicle Assembler Name Role Phone Name, Reynold FAUST Primary Care Provider [phone] Encounter Details Date Type Department Care Team (Late st Contact Info) Description 12/04/2020 Ancillary Orders [facility],Outside Imaging [address] [place], [place] [phone] System, Provider Not In, [facility] [address] [address] Social History Tobacco Use Types Packs/Day Years [...] on filedocumented in this encounter Care Teams Vehicle Assembler Relationship Specialty Start Date End Date Name, MD Reynold [address] [place], [place] [phone] PCP - General Geriatric Psychiatry 10/26/19 documented as of this encounter Additional Source Comments The information contained in this document represents components of the legal health record. It is not the complete legal health record.[facility]
--- OUTSIDE RECORDS SUMMARY | 2025-06-17 07:08 | XMS_ITS | Encounter Summary ---
Author Organization [facility] Address [address] [facility] [address] [place] [address] Phone Care Team Providers Care Compliance Director Name Role Phone Name, Reynold FAUST Primary Care Provider [phone] Reason for Visit * Reason Comments Medication Refill Encounter Details Date Type Department Care Team (Late st Contact Info) Description 04/26/2020 Refill [facility] Rad Onc [address] [place] [address] Izabel Moran MD [address] [place] [phone] [email or web address] Medication Refill Social History Tobacco Use [...] on filedocumented in this encounter Care Teams Compliance Director Relationship Specialty Start Date End Date Name, MD Reynold 230 [place] [address] PCP - General Geriatric Psychiatry 10/26/19 documented as of this encounter Additional Source Comments The information contained in this document represents components of the legal health record. It is not the complete legal health record.[facility]
--- OUTSIDE RECORDS SUMMARY | 2025-06-17 07:08 | XMS_ITS | Encounter Summary ---
Author Organization [facility] Address [address] [facility] [address] [place] [address] Phone Care Team Providers Care Registered Nurse Fetal Name Role Phone Name, Reynold FAUST Primary Care Provider [phone] Encounter Details Date Type Department Care Team (Late st Contact Info) Description 12/04/2020 Ancillary Orders [facility],Outside Imaging 30 [place], [place] [phone] System, Provider [place] In, [place] [address] Social History Tobacco Use Types Packs/Day Years [...] on filedocumented in this encounter Care Teams Registered Nurse Fetal Relationship Specialty Start Date End Date Name, MD Reynold 230 [place], [place] [phone] PCP - General Geriatric Psychiatry 10/26/19 documented as of this encounter Additional Source Comments The information contained in this document represents components of the legal health record. It is not the complete legal health record.[facility]
--- OUTSIDE RECORDS SUMMARY | 2025-06-17 07:09 | XMS_ITS | Encounter Summary ---
Author Organization [employer] Address [address] [facility] [facility] [address] 7[address] [place] [address] Care Team Providers Care Energy Operations Vice President Name Role Phone Name, Reynold FAUST Primary Care Provider [phone] Reason for Visit * Reason Comments Med Refill Encounter Details Date Type Department Care Team ([facility] st Contact Info) Description 05/13/2025 Refill [facility] MEDICINE 230 [place], [place] [phone] Name, MD Reynold 230 [place] [address] Social History Tobacco Use Types Packs/Day Years [...] Description 07/12/2025 2:00 PM EDT Office Visit [facility] OPTOMETRY [address] [place] [address] Xiao Cali, OD [address] [place] [address] 08/01/2025 9:45 AM EST Office Visit [facility] MEDICINE [address] [place] [address] 08/31/2025 9:45 AM EST Office Visit [facility] MEDICINE [address] [place] [phone] NameReynold MD [address] [place] [address] documented as of this encounter Visit Diagnoses Not on filedocumented in this encounter Additional Health Concerns Assessment Noted Time PHQ-9 Depression Total Score: 9 04/17/20 25 10:41 AM EDT documented as of this encounter Care Teams Energy Operations Vice President Relationship Specialty Start Date End Date Name, MD Reynold [address] [place] [address] PCP - General Family Medicine 12/26/15 documented as of this encounter
--- OUTSIDE RECORDS SUMMARY | 2025-06-17 07:09 | XMS_ITS | Encounter Summary ---
Author Organization [facility] Address [address] [facility] [address] [place] [address] Phone Care Team Providers Care Power Screwdriver Operator Name Role Phone Name, Reynold FAUST Primary Care Provider [phone] Encounter Details Date Type Department Care Team (Late st Contact Info) Description 12/04/2020 Ancillary Orders [facility],Outside Imaging 30 [place], [place] [phone] System, Provider Not In, [facility] [address] [address] Social History Tobacco Use Types Packs/Day Years [...] on filedocumented in this encounter Care Teams Power Screwdriver Operator Relationship Specialty Start Date End Date Name, MD Reynold 230 [place], [place] [phone] PCP - General Geriatric Psychiatry 10/26/19 documented as of this encounter Additional Source Comments The information contained in this document represents components of the legal health record. It is not the complete legal health record.[facility]
--- OUTSIDE RECORDS SUMMARY | 2025-06-17 07:09 | XMS_ITS | Encounter Summary ---
Author Organization [facility] Address [address] [facility] [address] [place] [address] Phone Care Team Providers Care Manager Graphic Name Role Phone Name, Reynold FAUST Primary Care Provider Encounter Details Date Type Department Care Team (Late st Contact Info) Description 10/27/2019 Ancillary Orders [facility],Outside Imaging [address] [place] [address] System, Provider Not In, [facility] [address] [address] Social History Tobacco Use Types Packs/Day Years [...] filedocumented in this encounter Care Teams Manager Graphic Relationship Specialty Start Date End Date Name, MD Reynold [address] [place] [address] PCP - General Geriatric Psychiatry 10/26/19 documented as of this encounter Additional Source Comments The information contained in this document represents components of the legal health record. It is not the complete legal health record.[facility]
--- OUTSIDE RECORDS SUMMARY | 2025-06-17 07:09 | XMS_ITS | Encounter Summary ---
Author Organization [facility] Address [address] [facility] [address] [place] [address] Phone Care Team Providers Care Porter Marina Name Role Phone Name, Reynold FAUST Primary Care Provider [phone] Encounter Details Date Type Department Care Team (Late st Contact Info) Description 10/27/2019 Ancillary Orders [facility],Outside Imaging 30 [place] [address] System, Provider Not In, [facility] [address] [address] Social History Tobacco Use Types Packs/Day Years [...] on filedocumented in this encounter Care Teams Porter Marina Relationship Specialty Start Date End Date Name, MD Reynold 230 [place] [address] PCP - General Geriatric Psychiatry 10/26/19 documented as of this encounter Additional Source Comments The information contained in this document represents components of the legal health record. It is not the complete legal health record.[facility]
--- OUTSIDE RECORDS SUMMARY | 2025-06-17 07:09 | XMS_ITS | Encounter Summary ---
Author Organization [employer] Address [address] [facility] 7t [place] [address] Care Team Providers Care Acute Care Certified Nursing Assistant Name Role Phone Name, Reynold FAUST Primary Care Provider [phone] Reason for Visit * Reason Comments Med Refill Encounter Details Date Type Department Care Team (Late Contact Info) Description 04/06/2023 Refill [facility] MEDICINE [address] [place] [address] Name, MD Reynold [address] [place] [address] Chronic cough Social History Tobacco Use Types [...] Description 07/12/2025 2:00 PM EDT Office Visit [facility] OPTOMETRY [address] [place] [address] Xiao Cali, OD [address] [place] [address] 08/01/2025 9:45 AM EST Office Visit [facility] MEDICINE [address] [place] [address] 08/31/2025 9:45 AM EST Office Visit [facility] MEDICINE 230 [place] [address] Name, MD Reynold [address] [place] [address] documented as of this encounter Visit Diagnoses Diagnosis Chronic cough Cough documented in this encounter Care Teams Acute Care Certified Nursing Assistant Relationship Specialty Start Date End Date Name, MD Reynold [address] [place] [address] PCP - General Family Medicine 12/26/15 documented as of this encounter
--- OUTSIDE RECORDS SUMMARY | 2025-06-17 07:09 | XMS_ITS | Encounter Summary ---
Author Organization [employer] Address [address] [facility] [address] [address] 7t [place] [address] Care Team Providers Care Pediatric Np Name Role Phone Name, Reynold FAUST Primary Care Provider [phone] Encounter Details Date Type Department Care Team (Late st Contact Info) Description 10/13/2022 Orders Only [facility] P[facility]S [address] [place] [address] Sadia Silva LPN Social History Tobacco Use [...] Description 07/12/2025 2:00 PM EDT Office Visit [facility] OPTOMETRY [address] [place] [address] Xiao Cali OD [address] [place] [address] 08/01/2025 9:45 AM EST Office Visit [facility] MEDICINE [address] [place] [address] 08/31/2025 9:45 AM EST Office Visit [facility] MEDICINE [address] [place] [address] Name, MD Reynold [address] [place] [address] documented as of this encounter Procedures Procedure Name Priority Date/Time Associated Diagnosis Comments CBC WITH AUTO DIFFERENTIAL Routine 11/08/2022 10:25 AM EST HEMOGLOBIN A1C Routine 11/08/2022 10:25 AM EST LIPID PANEL, STANDARD Routine 11/08/2022 10:25 AM EST COMPREHENSIVE METABOLIC PANEL Routine 11/08/2022 10:25 AM EST documented in this encounter Results * Lipid Panel, Standard (11/08/2022 10:25 AM EST) Triglycerides 142 mg/dL [facility] Comment:Desirable Triglyceri de: less than 150 mg/dLBorderline High Triglyceride 150-199 mg/dLHigh Triglyceride: 200-499 mg/dLVery High Triglyceride: greater than or equal to 5OO mg/dL Cholesterol 225 mg/dL [facility] Comment:Desirable Cholestero l: less than 200 mg/dLBorderline High Cholesterol: 200-239 mg/dLHigh Cholesterol: greater than 239 mg/dL LDL Cholesterol Calculated 131 mg/dl [facility] Comment:Desirable LDL: less than 100 mg/dLNear Optimal/Above Optimal LDL: 110- 129 mg/dLBorderline High LDL: 130-159 mg/dLHigh LDL: 160-189 mg/dLVery High LDL: greater than or equal to 190 mg/dL HDL Cholesterol 66 mg/dL [facility] Comment:Desirable HDL: great er than 40 mg/dL Note: This HDL assay may give artificially low results in patients with liver disease. 11/08/2022 10:2 5 AM EST 11/08/2022 10:25 AM EST us [facility] External Provider LAB BLO OD ORDERABLES Final Result [facility] [address] [place] [phone] * (ABNORMAL) Comprehensive Metabolic Panel (11/08/2022 10:25 AM EST) Sodium 143 135 - 145 mmol/L [facility] Potassium 4.1 3.3 - 5.1 mmol/L [facility] Chloride 106 96 - 108 mmol/L [facility] Carbon Dioxide 27 22 - 29 mmol/L [facility] Anion Gap 14 12 - 20 [facility] Urea Nitrogen (BUN) 23(H) 9 - 16 mg/dL [facility] Creatinine, Serum 0.81 0.5 - 1.4 mg/dL [facility] Estimated Glomerular Filt Rate >60 [facility] Comment:NOTE: For -Am erican individuals, multiply the result by 1.210.Chronic Kidney Disease: Estimated GFR < 60 mL/min/1.04a0[place] Kidney Disease: Estimated GFR < 15 mL/min/1.73m2 Glucose 107 60 - 115 mg/dL [facility] Calcium 9.5 8.4 - 10.2 mg/dL [facility] Bilirubin, Total 0.5 0.0 - 1.0 mg/dL [facility] Aspartate Amino Transferase 24 5 - 31 U/L [facility] Alanine Aminotransferase 27 0 - 31 U/L [facility] Total Protein 7.5 6.5 - 8.0 g/dL [facility] Albumin Level 4.2 3.5 - 5.0 g/dL [facility] Alkaline Phosphatase 79 39 - 117 U/L [facility] 11/08/2022 10:2 5 AM EST 11/08/2022 10:25 AM EST us [facility] External Provider LAB BLO OD ORDERABLES Final Result [facility] [address] [place] [phone] * Hemoglobin A1c (11/08/2022 10:25 AM EST) Hemoglobin A1c 6.2 % [facility] Comment:Hemoglobin A1C Refer ence Range Adults: 4.8 - 6.0 % Non diabetic: < 6.0 % Goal: < 7.0 %Additional Action Suggested: > 8.0 %Note: Hemoglobin A1c results are invalid for patients with abnormal amounts of HbF. Blood transfusions may impact the HbA1c concentration in the patient sample. Estimated Average Glucose 131 mg/dL [facility] Comment:eAG = Estimated ave rage glucose which is %A1C expressed asaverage glucose, using the formula of the [id number] Glucose study (ADAG), Diabetes Care, Vol.31,#8,2007 11/08/2022 10:2 5 AM EST 11/08/2022 10:25 AM EST us [facility] External Provider LAB BLO OD ORDERABLES Final Result [facility] [address] [place] [address] [phone] * (ABNORMAL) CBC auto differential (11/08/2022 10:25 AM EST) White Blood Count 3.9(L) 4.8 - 10.8 X10*3/uL [facility] Red Blood Count 4.47 4.20 - 5.50 X10*6/uL [facility] Hemoglobin 12.2 12.0 - 16.0 g/dl [facility] Hematocrit 38.1 37.0 - 47.0 % [facility] Mean Corpuscular Volume 85.2 80.0 - 98.0 fL [facility] Mean Corpuscular Hemoglobin 27.3 27.0 - 33.0 pg [facility] Mean Corpuscular HGB Conc 32.0 31.0 - 35.0 g/dl [facility] Red Cell Distribution Width 14.4 11.0 - 16.0 % [facility] Platelet Count 178 160 - 400 X10*3/uL [facility] Mean Platelet Volume 11.4 9.4 - 12.3 fL [facility] Neutrophils Percent Auto 65.0 45 - 73 % [facility] Imm Gran Pct Auto 0.3 0.0 - 0.4 % [facility] Lymphocytes Percent Auto 22.4 20 - 40 % [facility] Monocytes Percent Auto 8.7 2 - 11 % [facility] Eosinophils Percent Auto 2.8 0 - 4 % [facility] Basophils Percent Auto 0.8 0 - 2 % [facility] NRBC Pct Auto 0.0 0.0 - 0.2 /100WBC [facility] Neutrophils Absolute Auto 2.6 2.0 - 8.3 x10*3/uL [facility] Imm Gran Abs Auto 0.01 0.00 - 0.03 X10*3/uL [facility] Lymphocytes Absolute Auto 0.9(L) 1.2 - 4.9 X10*3/uL [facility] Monocytes Absolute Auto 0.3 0.1 - 1.2 X10*3/uL [facility] Eosinophils Absolute Auto 0.1 0.0 - 0.4 X10*3/uL [facility] Basophils Absolute Auto 0.0 0.0 - 0.2 X10*3/uL [facility] NRBC Abs Auto 0.000 0.0 - 0.012 X10*3/uL [facility] 11/08/2022 10:2 5 AM EST 11/08/2022 10:25 AM EST us [facility] External Provider LAB BLO OD ORDERABLES Final Result Performing Organization Address City/State/[facility] Co de Phone Number [facility] [address] [place] [address] [phone] documented in this encounter Visit Diagnoses Not on filedocumented in this encounter Care Teams Pediatric Np Relationship Specialty Start Date End Date Name, MD Reynold [address] [place] [address] PCP - General Family Medicine 12/26/15 documented as of this encounter
--- OUTSIDE RECORDS SUMMARY | 2025-06-17 07:09 | XMS_ITS | Encounter Summary ---
Author Organization [facility] Address [address] [facility] [address] [place] [address] Phone Care Team Providers Care Supervisor Of Officials Name Role Phone Name, Reynold FAUST Primary Care Provider [phone] Encounter Details Date Type Department Care Team (Late st Contact Info) Description 10/27/2019 Ancillary Orders [facility],Outside Imaging [address] [place] [address] System, Provider Not In, [facility] [address] [address] Social History Tobacco Use Types Packs/Day Years [...] on filedocumented in this encounter Care Teams Supervisor Of Officials Relationship Specialty Start Date End Date Name, MD Reynold [address] [place] [address] PCP - General Geriatric Psychiatry 10/26/19 documented as of this encounter Additional Source Comments The information contained in this document represents components of the legal health record. It is not the complete legal health record.[facility]
--- OUTSIDE RECORDS SUMMARY | 2025-06-17 07:09 | XMS_ITS | Encounter Summary ---
Author Organization [employer] Address [address] [facility] 7t [place] [address] Care Team Providers Care Aba Therapist Name Role Phone Name, Reynold FAUST Primary Care Provider [phone] Encounter Details Date Type Department Care Team ([facility] st Contact Info) Description 12/15/2024 Orders Only [facility] [address] [place] [address] Provider, MD Mally Social History Tobacco Use [...] the past 12 months, has t he [employer], gas, oil or water company threatened to [...] Description 07/12/2025 2:00 PM EDT Office Visit [facility] OPTOMETRY [address] [place] [address] Xiao Cali, OD [address] [place] [address] 08/01/2025 9:45 AM EST Office Visit [facility] MEDICINE [address] [place] [address] 08/31/2025 9:45 AM EST Office Visit [facility] MEDICINE [address] [place] [address] Name, MD Reynold [address] [place] [address] documented as of this encounter Procedures Procedure [...] documented as of this encounter Care Teams Aba Therapist Relationship Specialty Start Date End Date NameReynold MD [address] [place] [address] PCP - General Family Medicine 12/26/15 documented as of this encounter
--- OUTSIDE RECORDS SUMMARY | 2025-06-17 07:09 | XMS_ITS | Encounter Summary ---
Author Organization [facility] Address [address] [facility] [address] [place] [address] Phone Care Team Providers Care Nutrition Assistant Name Role Phone Name, Reynold FAUST Primary Care Provider Encounter Details Date Type Department Care Team (Late st Contact Info) Description 10/27/2019 Ancillary Orders [facility],Outside Imaging [address] [place] [address] System, Provider Not In, [facility] [address] [address] Social History Tobacco Use Types Packs/Day Years [...] on filedocumented in this encounter Care Teams Nutrition Assistant Relationship Specialty Start Date End Date Name, MD Reynold [address] [place] [address] PCP - General Geriatric Psychiatry 10/26/19 documented as of this encounter Additional Source Comments The information contained in this document represents components of the legal health record. It is not the complete legal health record.[facility]
--- OUTSIDE RECORDS SUMMARY | 2025-06-17 07:09 | XMS_ITS | Encounter Summary ---
Author Organization [facility] Address [address] [facility] [address] [place] [address] Phone Care Team Providers Care Marketing Rotation Associate Name Role Phone Name, Reynold FAUST Primary Care Provider [phone] Encounter Details Date Type Department Care Team (Late st Contact Info) Description 10/27/2019 Ancillary Orders [facility],Outside Imaging [address] [place] [address] System, Provider Not In, [facility] [address] [address] Social History Tobacco Use Types Packs/Day Years [...] on filedocumented in this encounter Care Teams Marketing Rotation Associate Relationship Specialty Start Date End Date Name, MD Reynold [address] [place] [address] PCP - General Geriatric Psychiatry 10/26/19 documented as of this encounter Additional Source Comments The information contained in this document represents components of the legal health record. It is not the complete legal health record.[facility]
--- OUTSIDE RECORDS SUMMARY | 2025-06-17 07:09 | XMS_ITS | Encounter Summary ---
Author Organization [employer] Address [address] [place] [address] Care Team Providers Care Enamel Cracker Name Role Phone Name, Reynold FAUST Primary Care Provider [phone] Encounter Details Date Type Department Care Team (Late Contact Info) Description 10/07/2023 Abstract [facility] MEDICINE [address] [place] [phone] Name, MD Reynold [address] [place] [phone] Social History Tobacco Use Types Packs/Day Years [...] 2:00 PM EDT Office Visit [facility] OPTOMETRY [address] [place], [place] [phone] Xiao Cali OD [address] [place] [address] 08/01/2025 9:45 AM EST Office Visit [facility] MEDICINE [address] [place], [place] [phone] 08/31/2025 9:45 AM EST Office Visit [facility] [address] [facility] [place] [address] Name, MD Reynold [address] [place] [address] documented as of this encounter Visit Diagnoses Not on filedocumented in this encounter Care Teams Enamel Cracker Relationship Specialty Start Date End Date Name, MD Reynold [address] [place] [address] PCP - General Family Medicine 12/26/15 documented as of this encounter
--- OUTSIDE RECORDS SUMMARY | 2025-06-17 07:09 | XMS_ITS | Encounter Summary ---
Author Organization [facility] Address [address] [place] [phone] Phone Care Team Providers Care Mycology Teacher Name Role Phone Name, Reynold FAUST Primary Care Provider [phone] Encounter Details Date Type Department Care Team (Late st Contact Info) Description 12/04/2020 Ancillary Orders [facility],Outside Imaging [address] [place], [place] [phone] System, Provider Not In, [facility] [address] [address] Social History Tobacco Use Types Packs/Day Years [...] on filedocumented in this encounter Care Teams Mycology Teacher Relationship Specialty Start Date End Date Name, MD Reynold [address] [place], [place] [phone] PCP - General Geriatric Psychiatry 10/26/19 documented as of this encounter Additional Source Comments The information contained in this document represents components of the legal health record. It is not the complete legal health record.[facility]
--- OUTSIDE RECORDS SUMMARY | 2025-06-17 07:09 | XMS_ITS | Clinical Summary ---
Author Organization [employer] Address [address] [place] [address] Care Team Providers Care Prepper Name Role Phone Name, Reynold FAUST Primary Care Provider [phone] Allergies Active Allergy Reactions Criticality Noted Date [...] DAY 56.8 g 3 05/09/20 25 Active ibuprofen 600 MG tablet TAKE 1 TABLET BY MOUTH EVERY 8 HOURS NEEDED FOR MILD TO MODERATE PAIN 60 tablet 05/31/20 25 Active traMADol (Ultram) 50 MG tabletIndication s:Chronic pain syndrome TAKE 1 TABLET BY MOUTH IN THE MORNING, AT NOON AND AT BEDTIME IF NEEDED FOR SEVERE PAIN 84 tablet 06/14/20 25 025 Active ibuprofen 600 MG tablet TAKE 1 TABLET BY MOUTH EVERY 8 HOURS NEEDED FOR MILD PAIN OR MODERATE PAIN. 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 Agreement: 11/01/24 Tier: II (Q3 months - [...] cough 12/10/2023 Esophageal dysphagia 12/10/2023 Overview (12/11/2023): [place] [address] Operative Note Signed Patient: Cece Espinosa MR#: [id number] : 1965 Acct:[id number] Age/Sex: 58 / F Loc: .[facility] Attending Dr: Kylee Mejias MD cc: [...] 12:35 PM EDT): - Continues following with [facility] Rheum - Good engagement and participation with Group Medical Visit model - Encouraged multifactorial approach to pain control including pharm and non- pharm modalities - UTOX and Pill count as expected Assessment & Plan (03/28/2025 4:30 PM EDT): - continues following with [facility] Rheum Assessment & Plan (01/31/2025 4:44 PM EDT): - continues following with [facility] Rheum Intraductal carcinoma in situ of breast [...] use 12/10/2023 Left breast lump 12/10/2023 12/11/2023 [employer] methotrexate user 12/10/2023 12/11/2023 Screening for viral [...] organization. Date Type Department Care Team Description 06/15/2025 Telephone [facility] MEDICINE [address] [place] [address] Tommy Malave MA nov recalls 06/13/2025 Telephone [facility] [address] [place] [address] Reynold Crowell MD Durable Medical Equipment 06/13/2025 Refill [facility] [address] [place] [address] Reynold Crowell MD Chronic pain syndrome 05/31/2025 Refill [facility] [address] [place] [address] Reynold Crowell MD 05/30/2025 9:45 AM EDT Office Visit [facility] MEDICINE [address] [place] [phone] Kristen Williamson FNP Rheumatoid arthritis involving multiple sites, unspecified whether rheumatoid factor present (CMS/FORMER[facility]) (Primary Dx); Chronic pain syndrome; Dietary counseling; Exercise counseling; [employer] (current) use of opiate analgesic 05/30/2025 Travel 05/29/2025 Travel 05/13/2025 Refill [facility] [address] [place] [phone] Humaira Ng NP Chronic pain syndrome 05/13/2025 Refill [facility] [address] [place] [address] Reynold Crowell MD 05/13/2025 Refill [facility] [address] [place] [address] Paula Joy NP 05/09/2025 Refill [facility]S [address] [place], [place] [phone] Reynold Crowell MD Rash 05/02/2025 Telephone [facility] [address] [place] [address] Reynold Crowell MD Durable Medical Equipment 04/27/2025 9:00 AM EDT Office Visit [facility] ADULT DENTAL [address] [place] [address] SolorzanoAmyElisabet, AMRIKS 04/20/2025 Travel 04/17/2025 Refill [facility] [address] [place] [address] Reynold Crowell MD 04/14/2025 Refill [facility] [address] [place] [phone] Reynold Crowell MD Chronic pain syndrome 04/03/[address] [address] Reynold Crowell MD Durable Medical Equipment 03/30/2025 9:00 AM EDT Office Visit [facility] ADULT DENTAL [address] [place] [address] Kylah Elizabeth 03/29/2025 9:30 AM EDT Office Visit [facility] MEDICINE [address] [place] [phone] Reynold Crowell MD Essential hypertension (Primary Dx); Osteoarthritis of right knee, unspecified osteoarthritis type; Rheumatoid arthritis, involving unspecified site, unspecified whether rheumatoid factor present (CMS/HCC); Ear discomfort, right; NSAID long-term use; Blurred vision 03/29/2025 Orders Only GENERIC EXTERNAL DATA DEPARTMENT Provider, Generic External Data 03/29/2025 Refill [facility] [address] [place] [address] Reynold Crowell MD 03/29/2025 Travel 03/28/2025 9:45 AM EDT Office Visit [facility] MED[facility]INE [address] [place] [address] Kristen Williamson, GENERATOR SWITCHBOARD OPERATOR Rheumatoid arthritis involving multiple sites, unspecified whether rheumatoid factor present (CMS/HCC) (Primary Dx); [employer] (current) use of opiate analgesic 03/28/2025 Telephone [facility]INE [address] [place] [address] Reynold Crowell MD CHART PREP 03/28/2025 Telephone [facility] [address] [place] [address] Leeanna Paulino RN BPI Scoring 03/28/2025 Travel 03/21/2025 Travel from Last 3 Months Immunizations Immunization Administration [...] Description 07/12/2025 2:00 PM EDT Office Visit [facility] OPTOMETRY [address] [place] [address] Xiao Cali, OD [address] [place] [address] 08/01/2025 9:45 AM EST Office Visit [facility] MEDICINE [address] [place] [address] 08/31/2025 9:45 AM EST Office Visit [facility] [address] [place] [phone] Name, MD Reynold [address] [place] [address] Health Maintenance Due Date Last Done Comments [...] years 1-dose series) 2025 COVID-19 Vaccine ( season) 2025 Influenza Vaccine (#1) 2025 Dental Oral Exam 10/01/2025 03/30/2025, 08/2024, 10/10/2020, Additional history exists Dental Prophylaxis 10/01/2025 03/30/2025, 10/10/2020 Depression Monitoring 10/18/2025 04/17/2025, 025 Diabetes: Hemoglobin A1C 11/16/2025 025, 12/12/2023, 11/08/2022 Cervical Cancer Screening 11/23/2025 HPV/Cotest 11/23/2025 11/23/2024, 05/2022, 07/30/2022, Additional history exists Pap Smear 11/23/2025 11/23/2024, 07/30/2022 Alcohol/Substance Use Screening 03/29/2026 03/29/2025 Dental X-Ray: Bitewings 03/31/2026 03/30/20, 12/01/2023, 10/10/2020, Additional history exists Tobacco Screening 04/27/2026 04/27/2025 Disability Screening 05/29/2026 05/29/2025 Dental X-Ray: Full Mouth 12/01/2026 024, 10/29/2023, 07/06/2019 Mammogram 06/05/2027 06/05/2025, 05/22, 11/10/2024, Additional history exists Lipid Panel 05/14/2029 05/14/2024, 11/08/2022 Hepatitis C [...] Name Priority Date/Time Associated Diagnosis Comments BI US BREAST LIMITED RIGHT Routine 06/05/2025 2:32 PM EDT BI MAMMOGRAM DIAGNOSTIC TOMOSYNTHESIS RIGHT Routine 06/05/2025 [...] sites, unspecified whether rheumatoid factor present (CMS/HCC) shelter (current) use of opiate analgesic PAP SMEAR [...] Relevant to Health Maintenance Results * BI US Breast Limited Right (06/05/2025 2:32 PM EDT) Anatomical Region Laterality Modality Breast Right Ultrasound 06/05/2025 2:32 PM EDT Narrative 06/05/2025 6:07 PM EDT [facility] [address] 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 MM DIAGNOSTIC DIGITAL BREAST [...] outer quadrant did not reveal suspicious findings. US/US breast RT limited mamm only IMPRESSION: RIGHT BREAST: Benign, no evidence of [...] Hutchins MD in OV> 06/05/25 1804 DD/ 1432 TD/TT: 06/05/25 1452 Audio Visual Secretary: Procedure Note Donotuseinterpreter, Image - 06/06/20[facility] [address] 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 MM DIAGNOSTIC DIGITAL BREAST [...] outer quadrant did not reveal suspicious findings. US/US breast RT limited mamm only IMPRESSION: RIGHT BREAST: Benign, no evidence of [...] Hutchins MD 06/05/2025 06:04 PM EDT Workstation: [employer]Prote[employer] Dictated By: Laverne Hutchins MD Signed By: <Electronically signed by Laverne Hutchins MD in OV> 06/05/25 1804 DD/ 1432 TD/TT: 06/05/25 1452 Audio Visual Secretary: us [facility] External Provider IMG US PROCEDURES Final Result * BI Mammogram Diagnostic Tomosynthesis Right (06/05/2025 2:14 PM EDT) Anatomical Region Laterality Modality Breast Right Mammography 06/05/2025 2:14 PM EDT Narrative 06/05/2025 6:07 PM EDT [address] [place] [address] Mammography Report Signed Patient: Cece Espinosa MR#: [id number] : 1965 Acct:[id number] Age/Sex: 60 / F ADM Date: 06/05/25 Loc: HO.MAMMO Attending Dr: Phillip Acuna MD Ordering Physician: Phillip Acuna MD Results: 2Beni gn Findings Date of Service: 06/05/25 Follow Up: 1 Year From [facility] ina Mammogram Procedure(s): MM tomosynthesis diagnostic RT Accession Number(s): [id number] cc: Phillip Acuna MD; Name,Reynold FAUST Reason [...] 06/05/25 1804 DD/ 1414 TD/TT: 06/05/25 1417 Audio Visual Secretary: Procedure Note Donotuseinterpreter, Image - 06/05/2025 [facility] [address] [place] [address] [place] [address] Mammography Report Signed Patient: Cece Espinosa#: [id number] : 1965Acct:[id number] Age/Sex: 60 / FADM Date: 06/05/25 Loc: HO.MAMMO Attending Dr: Phillip Acuna MD Ordering Physician: Phillip Acuna MDResults: 2Beni gn Findings Date of Service: 06/05/25Follow Up: 1 Year From [facility] Mammogram Procedure(s): MM tomosynthesis diagnostic RT Accession Number(s): [id number] cc: Phillip Acuna MD; Name,Reynold FAUST Reason [...] 06/05/25 1804 DD/ 1414 TD/TT: 06/05/25 1417 Audio Visual Secretary: [facility] External Provider IMG BI PROCEDURES [...] - 05/30/2025 10:22 AM EDT .[employer] cup Lot#[id number] Exp. 06/27/26 Internal Pass Control Kristen Williamson GENERATOR SWITCHBOARD OPERATOR POINT OF CARE TEST ENTER/EDIT ORDERABLES Final Result * (ABNORMAL) Urinalysis, Complete, with Reflex to Culture (03/29/2025 9:54 AM EDT) Color Urine Yellow [facility] Appearance Urine Cloudy [facility] PH 5.5 5.0 - 9.0 [facility] Glucose Urine UA Negative Negative mg/dL [facility] Urine Blood Trace(A) Negative [facility] Specific Hart - Urine 1.025 1.005 - 1.025 [facility] Urine Protein Trace Neg-Trace mg/dL [facility] Urine Ketones Trace Negative mg/dL [facility] Nitrite Urine Negative Negative [facility] Leukocyte Esterase Urine Negative Negative [facility] RBC Urine 0-2 0 - 2 /HPF [facility] Urine WBC 0-5 0 - 5 /HPF [facility] Urine Squamous Epithelial Cell 3-5 0 - 2 /HPF [facility] CALCIUM OXALATE CRYSTAL, UR Present [facility] Urine Bacteria None Seen None Seen [facility] Hyaline Casts, Urine 0-2 0 - 2 /LPF [facility] 03/29/2025 9:54 AM EDT 03/29/2025 12:04 PM EDT Narrative [facility] - 03/29/2025 12:22 PM EDT Urine, Clean Catch us Generic External Data Provider LAB URINE ORDERAB LES Final Result [facility] [address] [place] [phone] * (ABNORMAL) CBC auto differential (03/29/2025 9:54 AM EDT) White Blood Count 4.3(L) 4.8 - 10.8 X10*3/uL [facility] Red Blood Count 4.47 4.20 - 5.50 X10*6/uL [facility] Hemoglobin 12.4 12.0 - 16.0 g/dl [facility] Hematocrit 38.7 37.0 - 47.0 % [facility] Mean Corpuscular Volume 86.6 80.0 - 98.0 fL [facility] Mean Corpuscular Hemoglobin 27.7 27.0 - 33.0 pg [facility] Mean Corpuscular HGB Conc 32.0 31.0 - 35.0 g/dl [facility] Red Cell Distribution Width 14.7 11.0 - 16.0 % [facility] Platelet Count 180 160 - 400 X10*3/uL [facility] Mean Platelet Volume 12.9(H) 9.4 - 12.3 fL [facility] Neutrophils Percent Auto 60.2 45 - 73 % [facility] Imm Gran Pct Auto 0.2 0.0 - 0.4 % [facility] Lymphocytes Percent Auto 24.0 20 - 40 % [facility] Monocytes Percent Auto 11.8(H) 2 - 11 % [facility] Eosinophils Percent Auto 3.1 0 - 4 % [facility] Basophils Percent Auto 0.7 0 - 2 % [facility] NRBC Pct Auto 0.0 0.0 - 0.2 /100WBC [facility] Neutrophils Absolute Auto 2.6 2.0 - 8.3 x10*3/uL [facility] Imm Gran Abs Auto 0.01 0.00 - 0.03 X10*3/uL [facility] Lymphocytes Absolute Auto 1.0(L) 1.2 - 4.9 X10*3/uL [facility] Monocytes Absolute Auto 0.5 0.1 - 1.2 X10*3/uL [facility] Eosinophils Absolute Auto 0.1 0.0 - 0.4 X10*3/uL [facility] Basophils Absolute Auto 0.0 0.0 - 0.2 X10*3/uL [facility] NRBC Abs Auto 0.000 0.0 - 0.012 X10*3/uL [facility] 03/29/2025 9:54 AM EDT 03/29/2025 11:53 AM EDT us Generic External Data Provider LAB BLOOD ORDERAB LES Final Result [facility] [address] [place] [address] [phone] * (ABNORMAL) Sed Rate by Modified Ankur (03/29/2025 9:54 AM EDT) Erythrocyte Sedimentation Rate 67(H) 0 - 20 MM/HR [facility] Comment:Patients with polycy themia and many hemoglobin abnormalitiesmay have depressed sed rates whereas patients with anemiamay have elevated sed rates. 03/29/2025 9:54 AM EDT 03/29/2025 11:53 AM EDT Generic External Data Provider LAB BLOOD ORDERAB LES Final Result Performing Organization Address [facility] Co de Phone Number [facility] [address] [place] [phone] * (ABNORMAL) C-reactive Protein (03/29/2025 9:54 AM EDT) Only the most recent of2 resultswithin the time period is included. Pathologist [facility] C Reactive Protein 0.85(H) < or = 0.50 mg/dL [facility] 03/29/2025 9:54 AM EDT 03/29/2025 12:00 PM EDT Generic External Data Provider LAB BLOOD ORDERAB LES Final Result Performing Organization Address [facility] de Phone Number [facility] [address] [place] [phone] * (ABNORMAL) Comprehensive Metabolic Panel (03/29/2025 9:54 AM EDT) Pathologist [facility] Sodium 141 135 - 145 mmol/L [facility] Potassium 3.5 3.3 - 5.1 mmol/L [facility] Chloride 105 96 - 108 mmol/L [facility] Carbon Dioxide 29 22 - 29 mmol/L [facility] Anion Gap 11(L) 12 - 20 [facility] Urea Nitrogen (BUN) 19(H) 9 - 16 mg/dL [facility] Creatinine, Serum 0.73 0.5 - 1.4 mg/dL [facility] Estimated Glomerular Filt Rate >60 [facility] Comment:Chronic Kidney Disea se: Estimated GFR < 60 mL/min/1.75m0Jfkiqw Kidney Disease: Estimated GFR < 15 mL/min/1.73m2 Glucose 92 60 - 115 mg/dL [facility] Calcium 9.3 8.4 - 10.2 mg/dL [facility] Bilirubin, Total 0.3 0.0 - 1.0 mg/dL [facility] Aspartate Amino Transferase 33(H) 5 - 31 U/L [facility] Alanine Aminotransferase 32(H) 0 - 31 U/L [facility] Total Protein 7.8 6.5 - 8.0 g/dL [facility] Albumin Level 4.4 3.5 - 5.0 g/dL [facility] Alkaline Phosphatase 72 39 - 117 U/L [facility] 03/29/2025 9:54 AM EDT 03/29/2025 12:00 PM EDT us Generic External Data Provider LAB BLOOD ORDERAB LES Final Result Performing Organization Address City/State/[facility] Co de Phone Number [facility] [address] [place] [phone] * Pap Smear (11/23/2024 9:23 AM EST) Swab Cervix uteri structure / Unknown 11/23/2024 9:23 AM EST 11/24/2024 6:00 AM EST Narrative [facility] - 11/28/2024 8:33 AM EDT ----- ------- Name: Cece Espinosa Age/Sex: 59/F : 1965 Unit#: [id number] Attend Dr: KONSTANTIN DAVIS CNM Re11/23/24 Status: DEP REF Location: [facility] Disch: ----- ------- SPEC : [id number] RECD: 11/24/24 STATUS: RAUL RUSSO NUM: [id number] LEVI: 11/23/[address] [facility] DR: KONSTANTIN DAVIS CNM ENTERED: 11/24/24 [...] CNM LAB CYTOLOGY ORDERABLES F inal Result [facility] [address] [place] [address] [phone] * HPV DNA, Low/High Risk (11/23/2024 12:00 AM EST) HPV High Risk Negative Negative [facility] HPV Genotype 16 Negative Negative [facility] HPV Genotype 18 Negative Negative [facility] Comment:HPV testing performe d at [facility] (CLIA#[id number]), [address] [place] [phone].Testing for HPV was performed using the Connor [...] 11/23/2024 11/24/2024 8:5 6 AM EST Konstantin WILLIS LAB BLOOD ORDERABLES Megan l Result Performing Organization Address [facility] Co de Phone Number [facility] [address] [place] [address] [phone] * (ABNORMAL) POCT HGB A1C (11/16/2024 2:28 PM EST) Hemoglobin A1C 6.2(A) 4.0 - 6.0 % QC Media Lot # [id number] Lot# Expiration Date ,[id number] Blood 11/16/2024 2:28 PM EST Reynold Crowell MD POINT OF CARE TEST ENTER/EDIT OR DERABLES Final Result * Hepatitis Panel, General (10/31/2024 2:04 PM EST) Hepatitis A IgM Nonreactive Nonreactive [facility] Comment:IgM antibodies to CORONADO V not detected; does not exclude earlyacute or recovered HAV infection. ~Hepatitis B Surface Antibody REACTIVE Nonreactive [facility] Comment:REACTIVE: > 11.99 mI U/mL Hepatitis B Core Antibody Nonreactive Nonreactive [facility] Hepatitis C Antibody Nonreactive Nonreactive [facility] Comment:Antibodies to HCV no t detected; does not exclude early acuteHCV infection. Hepatitis B Surface Ag Negative Negative [facility] 10/31/2024 2:04 PM EST 10/31/2024 2:04 PM EST us Generic External Data Provider LAB BLOOD ORDERAB LES Final Result [facility] [address] [place] [address] [phone] * (ABNORMAL) Lipid Panel, Standard (05/14/2024 9:34 AM EDT) Triglycerides 132 <150 mg/dL [facility] Comment:Desirable Triglyceri de: less than 150 mg/dLBorderline High Triglyceride 150-199 mg/dLHigh Triglyceride: 200-499 mg/dLVery High Triglyceride: greater than or equal to 5OO mg/dL Cholesterol 218(H) <200 mg/dL [facility] Comment:Desirable Cholestero l: less than 200 mg/dLBorderline High Cholesterol: 200-239 mg/dLHigh Cholesterol: greater than 239 mg/dL LDL Cholesterol Calculated 130(H) <100 mg/dL [facility] Comment:Desirable LDL: less than 100 mg/dLNear Optimal/Above Optimal LDL: 110- 129 mg/dLBorderline High LDL: 130-159 mg/dLHigh LDL: 160-189 mg/dLVery High LDL: greater than or equal to 190 mg/dL HDL Cholesterol 62 >40 mg/dL [facility] Comment:Desirable HDL: great er than 40 mg/dL Note: This HDL assay may give artificially low results in patients with liver disease. Blood Venous blood specimen / Unknown 05/14/2024 9:34 AM EDT 05/14/2024 9:34 AM EDT us Reynold Crowell MD LAB BLOOD ORDERABLES Final Resul t [facility] [address] [place] [phone] [phone] from Last 3 Months or Most Recently Relevant to Health Maintenance Insurance [facility] [address] [facility] * Guarantor: Cece Espinosa Account Type Relation to Patient Date of Phone Billing Address Personal/Family Self [address] [place] [address] Care Teams Prepper Relationship Specialty Start Date End Date Name, MD Reynold [address] [place] [phone] PCP - General Family Medicine 12/26/15
--- OUTSIDE RECORDS SUMMARY | 2025-06-17 07:09 | XMS_ITS | Clinical Summary ---
Author Organization [facility] Address [address] [place] [address] Phone Care Team Providers Care Braille Coder Name Role Phone Name, Reynold FAUST Primary Care Provider [phone] Allergies No known active allergies Medications cloNIDine [...] Self [address] [place] [address] [facility] MEDICARE REPLACEMENT * Guarantor: Cece Espinosa Account Type Relation to Patient Date of Phone Billing Address Personal/Family Self [address] [place] [address] [facility] MEDICARE REPLACEMENT * Guarantor: Cece Espinosa Account Type Relation to Patient Date of Phone Billing Address Personal/Family Self [address] [place] [address] [facility] MEDICARE REPLACEMENT * Guarantor: Cece Espinosa Account Type Relation to Patient Date of Phone Billing Address Personal/Family Self [address] [place] [address] [facility] MED[facility] REPLACEMENT * Guarantor: Cece Espinosa Account Type Relation to Patient Date of Phone Billing Address Personal/Family Self [address] [facility] [place] [address] [facility] MEDICARE REPLACEMENT [facility] MEDICARE REPLACEMENT [facility] MEDICARE REPLACEMENT [facility] ONE CARE MEDICARE REPLACEMENT [facility] MEDICARE REPLACEMENT Care Teams Braille Coder Relationship Specialty Start Date End Date Name, MD Reynold [address] [place] [address] PCP - General Geriatric Psychiatry 10/26/19 Additional Source Comments The information contained in this document represents components of the legal health record. It is not the complete legal health record.[facility]
--- OUTSIDE RECORDS SUMMARY | 2025-06-17 07:09 | XMS_ITS | Encounter Summary ---
Author Organization [facility] Address [address] [place] [address] Phone Care Team Providers Care Appeals Examiner Name Role Phone Name, Reynold FAUST Primary Care Provider [phone] Encounter Details Date Type Department Care Team (Late st Contact Info) Description 10/27/2019 Ancillary Orders [facility],Outside Imaging [address] [place] [address] System, Provider Not In, [facility] [address] [address] Social History Tobacco Use Types Packs/Day Years [...] on filedocumented in this encounter Care Teams Appeals Examiner Relationship Specialty Start Date End Date Name, MD Reynold [address] [place] [address] PCP - General Geriatric Psychiatry 10/26/19 documented as of this encounter Additional Source Comments The information contained in this document represents components of the legal health record. It is not the complete legal health record.[facility]
--- OUTSIDE RECORDS SUMMARY | 2025-06-17 07:09 | XMS_ITS | Encounter Summary ---
Author Organization [facility] Address [address] 7t [place] [address] Care Team Providers Care Pet House Sitter Name Role Phone Name, Reynold FAUST Primary Care Provider [phone] Encounter Details Date Type Department Care Team (Latest Contact Info) Description 10/10/2020 Abstract [facility] CONVERSIONS Dental, Provider, DDS Social [...] Description 07/12/2025 2:00 PM EDT Office Visit [facility] OPTOMETRY [address] [place] [address] Xiao Cali OD [address] [place] [address] 08/01/2025 9:45 AM EST Office Visit [facility] MEDICINE [address] [place] [address] [phone] 08/31/2025 9:45 AM EST Office Visit [facility] MEDICINE [address] [place] [address] Name, MD Reynold [address] [place] [address] documented as of this encounter Visit Diagnoses Not on filedocumented in this encounter Care Teams Pet House Sitter Relationship Specialty Start Date End Date Name, MD Reynold [address] [place] [address] PCP - General Family Medicine 12/26/15 documented as of this encounter
--- OUTSIDE RECORDS SUMMARY | 2025-06-17 07:09 | XMS_ITS | Encounter Summary ---
Author Organization [employer] Address [address] 7t [place] [address] Care Team Providers Care Urgent Care Nurse Practitioner Name Role Phone Name, Reynold FAUST Primary Care Provider [phone] Encounter Details Date Type Department Care Team (Late Contact Info) Description 03/30/2023 Orders Only [facility] MED & PEDS [address] [place] [address] Sadia Silva LPN Social History Tobacco Use [...] Description 07/12/2025 2:00 PM EDT Office Visit [facility] OPTOMETRY [address] [place] [address] Xiao Cali OD [address] [place] [address] 08/01/2025 9:45 AM EST Office Visit [facility] MEDICINE [address] [place] [phone] 08/31/2025 9:45 AM EST Office Visit [facility] MEDICINE [address] [place] [address] [phone] Name, MD Reynold [address] [place] [address] documented as of this encounter Visit Diagnoses Not on filedocumented in this encounter Care Teams Urgent Care Nurse Practitioner Relationship Specialty Start Date End Date Name, MD Reynold [address] [place] [address] PCP - General Family Medicine 12/26/15 documented as of this encounter
--- OUTSIDE RECORDS SUMMARY | 2025-06-17 07:09 | XMS_ITS | Encounter Summary ---
Author Organization [employer] Address [address] 7t [place] [address] Care Team Providers Care Labor Commissioner Name Role Phone Name, Reynold FAUST Primary Care Provider [phone] Reason for Visit * Reason Comments Med Refill Encounter Details Date Type Department Care Team ([facility] st Contact Info) Description 02/28/2024 Refill [facility] MEDICINE [address] [place], [place] [phone] Name, MD Reynold [address] [place] [address] Chronic cough Social History Tobacco Use Types [...] Description 07/12/2025 2:00 PM EDT Office Visit [facility] OPTOMETRY [address] [place] [address] Xiao Cali, OD [address] [place] [address] 08/01/2025 9:45 AM EST Office Visit [facility] MEDICINE [address] [place] [address] 08/31/2025 9:45 AM EST Office Visit [facility] MEDICINE [address] [place] [address] Name, MD Reynold [address] [place] [address] documented as of this encounter Visit Diagnoses Diagnosis Chronic cough Cough documented in this encounter Additional Health Concerns Assessment Noted Time PHQ-9 Depression Total Score: 7 12/11/19 24 11:10 AM EDT documented as of this encounter Care Teams Labor Commissioner Relationship Specialty Start Date End Date Name, MD Reynold [address] [place] [address] PCP - General Family Medicine 12/26/15 documented as of this encounter
--- OUTSIDE RECORDS SUMMARY | 2025-06-17 07:09 | XMS_ITS | Encounter Summary ---
Author Organization [employer] Address [address] [facility] 7t [place] [address] Care Team Providers Care Duck Operator Name Role Phone Name, Reynold FAUST Primary Care Provider Reason for Visit * Reason Comments Med Refill Encounter Details Date Type Department Care Team (Late Contact Info) Description 03/11/2023 Refill [facility] MEDICINE [address] [place] [address] Name, MD Reynold [address] [place] [address] Chronic cough Social History Tobacco Use Types [...] 2:00 PM EDT Office Visit [facility] OPTOMETRY [address] [place] [address] Xiao Cali, OD 267 [place] [address] 08/01/2025 9:45 AM EST Office Visit [facility] MEDICINE [address] [place] [address] 08/31/2025 9:45 AM EST Office Visit [facility] MEDICINE 230 [place] [address] Name, MD Reynold [address] [place] [address] documented as of this encounter Visit Diagnoses Diagnosis Chronic cough Cough documented in this encounter Care Teams Duck Operator Relationship Specialty Start Date End Date Name, MD Reynold [address] [place] [address] PCP - General Family Medicine 12/26/15 documented as of this encounter
--- OUTSIDE RECORDS SUMMARY | 2025-06-17 07:09 | XMS_ITS | Encounter Summary ---
Author Organization [employer] Address [address] 7t [place] [address] Care Team Providers Care Newspaper Inserter Name Role Phone Name, Reynold FAUST Primary Care Provider [phone] Reason for Visit * Reason Comments Med Refill Encounter Details Date Type Department Care Team ([facility] st Contact Info) Description 06/13/2025 Refill [facility] MEDICINE [address] [place], [place] [phone] Name, MD Reynold 230 [place] [address] Chronic pain syndrome Social History Tobacco Use [...] 07/12/2025 2:00 PM EDT Office Visit [facility] OPTOMETRY [address] [place] [address] Xiao Cali, OD 267 [place] [address] 08/01/2025 9:45 AM EST Office Visit [facility] MEDICINE [address] [place] [address] 08/31/2025 9:45 AM EST Office Visit [facility] MEDICINE [address] [place] [address] Name, MD Reynold [address] [place] [address] documented as of this encounter Visit Diagnoses Diagnosis Chronic pain syndrome documented in this encounter Additional Health Concerns Assessment Noted Time PHQ-9 Depression Total Score: 9 04/17/20 25 10:41 AM EDT documented as of this encounter Care Teams Newspaper Inserter Relationship Specialty Start Date End Date Name, MD Reynold [address] [place] [address] PCP - General Family Medicine 12/26/15 documented as of this encounter
--- OUTSIDE RECORDS SUMMARY | 2025-06-17 07:09 | XMS_ITS | Encounter Summary ---
Author Organization [employer] Address [address] [facility] 7t [place] [address] Care Team Providers Care Paving Crew Foreman Name Role Phone Name, Reynold FAUST Primary Care Provider [phone] Encounter Details Date Type Department Care Team (Late st Contact Info) Description 11/11/2022 Orders Only [facility] MEDICINE [address] [place] [address] Valeria Heredia LPN Social History Tobacco Use [...] Description 07/12/2025 2:00 PM EDT Office Visit [facility] OPTOMETRY [address] [place] [address] Xiao Cali OD [address] [place] [address] 08/01/2025 9:45 AM EST Office Visit [facility] MEDICINE [address] [place] [address] 08/31/2025 9:45 AM EST Office Visit [facility] MEDICINE [address] [place] [address] Name, MD Reynold [address] [place] [address] documented as of this encounter Procedures Procedure Name Priority Date/Time Associated Diagnosis Comments XR CHEST 2 VIEWS Routine 11/28/2022 4:19 PM EST documented in this encounter Results * XR Chest 2 Views (11/28/2022 4:19 PM EST) Anatomical Region Laterality Modality Chest Radiographic Milla ging 11/28/2022 4:19 PM EST Narrative 11/29/2022 12:42 PM EST [address] [address] XRay Report Signed Patient: Cece Espinosa MR#: [id number] : 1965 Acct:[id number] Age/Sex: 57 / F ADM Date: 11/28/22 Loc: [facility] Attending Dr: Reynold Crowell MD Ordering Physician: Reynold Crowell MD Date of Service: 11/28/22 Procedure(s): XR chest 2V Accession Number(s): [id number] cc: Reynold Crowell MD EXAMINATION: XR CHEST [...] in OV> 11/29/22 1239 DD/ 1619 TD/TT: Line Construction Engineer: ADRIENNE Procedure Note Donotuseinterpreter, Image - 11/29/[address] [address] XRay Report Signed Patient: Cece EspinosaMR#: [id number] : 1965Acct:[id number] Age/Sex: 57 / FADM Date: 11/28/22 Loc: HO.[facility] Attending Dr: Reynold Crowell MD Ordering Physician: Reynold Crowell MD Date of Service: 11/28/22 Procedure(s): XR chest 2V Accession Number(s): [id number] cc: Reynold Crowell MD EXAMINATION: XR CHEST [...] in OV> 11/29/22 1239 DD/ 1619 TD/TT: Line Construction Engineer: DELEON [facility] External Provider IMG XR PROCEDURES Final Result documented in this encounter Visit Diagnoses Not on filedocumented in this encounter Care Teams Paving Crew Foreman Relationship Specialty Start Date End Date NameReynold MD 230 [place] [address] PCP - General Family Medicine 12/26/15 documented as of this encounter
--- OUTSIDE RECORDS SUMMARY | 2025-06-17 07:09 | XMS_ITS | Encounter Summary ---
Author Organization [facility] Address [address] [facility] [address] [place] [address] Phone Care Team Providers Care Core Composer Machine Tender Name Role Phone Name, Reynold FAUST Primary Care Provider [phone] Encounter Details Date Type Department Care Team (Late st Contact Info) Description 2020 Ancillary Orders [facility],Outside Imaging [address] [place], [place] [phone] System, Provider Not In, [facility] [address] [address] Social History Tobacco Use Types Packs/Day Years [...] on filedocumented in this encounter Care Teams Core Composer Machine Tender Relationship Specialty Start Date End Date Name, MD Reynold [address] [place] [address] [phone] PCP - General Geriatric Psychiatry 10/26/19 documented as of this encounter Additional Source Comments The information contained in this document represents components of the legal health record. It is not the complete legal health record.[facility]
--- OUTSIDE RECORDS SUMMARY | 2025-06-17 07:09 | XMS_ITS | Encounter Summary ---
Author Organization [facility] Address [address] [facility] [address] [place] [address] Phone Care Team Providers Care Control Room Helper Name Role Phone Name, Reynold FAUST Primary Care Provider [phone] Encounter Details Date Type Department Care Team (Late st Contact Info) Description 12/04/2020 Ancillary Orders [facility],Outside Imaging [address] [place], [place] [phone] System, Provider Not In, [facility] [address] [address] Social History Tobacco Use Types Packs/Day Years [...] on filedocumented in this encounter Care Teams Control Room Helper Relationship Specialty Start Date End Date Name, MD Reynold 230 [place], [place] [phone] PCP - General Geriatric Psychiatry 10/26/19 documented as of this encounter Additional Source Comments The information contained in this document represents components of the legal health record. It is not the complete legal health record.[facility]
--- OUTSIDE RECORDS SUMMARY | 2025-06-17 07:09 | XMS_ITS | Encounter Summary ---
Author Organization [employer] Address [address] [facility] [address] [address] 7t [place] [address] Care Team Providers Care Catalytic Converter Operator Helper Name Role Phone Name, Reynold FAUST Primary Care Provider [phone] Reason for Visit * Reason Comments Med Refill Encounter Details Date Type Department Care Team ([facility] st Contact Info) Description 06/11/2024 Refill [facility] MEDICINE 230 [place], [place] [phone] Name, MD Reynold [address] [place] [address] Essential hypertension Social History Tobacco Use Types [...] Description 07/12/2025 2:00 PM EDT Office Visit [facility] OPTOMETRY [address] [place] [address] Xiao Cali, OD 267 [place] [address] 08/01/2025 9:45 AM EST Office Visit [facility] MEDICINE [address] [place] [address] 08/31/2025 9:45 AM EST Office Visit [facility] MEDICINE [address] [place] [address] NameReynold MD [address] [place] [address] documented as of this encounter Visit Diagnoses Diagnosis Essential hypertension Unspecified essential hypertension documented in this encounter Additional Health Concerns Assessment Noted Time PHQ-9 Depression Total Score: 7 12/11/19 24 11:10 AM EDT documented as of this encounter Care Teams Catalytic Converter Operator Helper Relationship Specialty Start Date End Date Name, MD Reynold [address] [place] [address] PCP - General Family Medicine 12/26/15 documented as of this encounter
--- OUTSIDE RECORDS SUMMARY | 2025-06-17 07:09 | XMS_ITS | Encounter Summary ---
Author Organization [employer] Address [address] [facility] [address] 7t [place] [address] Care Team Providers Care Chainstitch Sewing Machine Operator Name Role Phone Name, Reynold FAUST Primary Care Provider [phone] Reason for Visit * Reason Onset Date Comments Med Refill Reschedule OPERATING ROOM TECHNOLOGIST RV she cancelled 02/02/23 06/05/20 Encounter Details Date Type Department Care Team (Late st Contact Info) Description 06/05/2023 Refill [facility] MED & PEDS [address] [place] [address] Name, MD Reynold 230 [place] [address] Chronic pain syndrome Social History Tobacco Use [...] 06/08/2023 10:55 AM EDT Pt was 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 TC to pt, no answer. L/M requesting she call to reschedule her OPERATING ROOM TECHNOLOGIST RV she cancelled. documented in this encounter Plan of Treatment Upcoming Encounters Date Type Department Care Team (Late st Contact Info) Description 07/12/2025 2:00 PM EDT Office Visit [facility] OPTOMETRY [address] [place] [address] Karely Xiao, OD 267 [place] [address] 08/01/2025 9:45 AM EST Office Visit [facility] MEDICINE 230 [place] [address] 08/31/2025 9:45 AM EST Office Visit [facility] MEDICINE [address] [place] [address] Name, MD Reynold [address] [place] [address] documented as of this encounter Visit Diagnoses Diagnosis Chronic pain syndrome documented in this encounter Care Teams Chainstitch Sewing Machine Operator Relationship Specialty Start Date End Date NameReynold MD [address] [place] [address] PCP - General Family Medicine 12/26/15 documented as of this encounter
--- OUTSIDE RECORDS SUMMARY | 2025-06-17 07:09 | XMS_ITS | Encounter Summary ---
Author Organization [employer] Address [address] [facility] [address] 7t [place] [address] Care Team Providers Care Oil Well Fishing Tool Operator Name Role Phone Name, Reynold FAUST Primary Care Provider [phone] Reason for Visit * Reason Onset Date Comments Nurse Triage 08/16/2024 Encounter Details Date Type Department Care Team ([facility] st Contact Info) Description 08/16/2024 Telephone [facility] MEDICINE 230 [place] [address] Name, MD Reynold [address] [place] [address] Nurse Triage Social History Tobacco Use Types [...] transportation but, will call to come to [facility] for Thursday evening. Pt agrees with [...] Description 07/12/2025 2:00 PM EDT Office Visit [facility] OPTOMETRY [address] [place] [address] Xiao Cali, OD [address] [place] [address] 08/01/2025 9:45 AM EST Office Visit [facility] MEDICINE [address] [place] [address] 08/31/2025 9:45 AM EST Office Visit [facility] MEDICINE [address] [place] [address] Name, MD Reynold [address] [place] [address] documented as of this encounter Visit Diagnoses Not on filedocumented in this encounter Additional Health Concerns Assessment Noted Time PHQ-9 Depression Total Score: 7 12/11/19 24 11:10 AM EDT documented as of this encounter Care Teams Oil Well Fishing Tool Operator Relationship Specialty Start Date End Date Reynold Crowell MD [address] [place] [address] PCP - General Family Medicine 12/26/15 documented as of this encounter
--- OUTSIDE RECORDS SUMMARY | 2025-06-17 07:09 | XMS_ITS | Encounter Summary ---
Author Organization [facility] Address [address] [facility] [address] [place] [address] Phone Care Team Providers Care Malt Specifications Control Assistant Name Role Phone Name, Reynold FAUST Primary Care Provider [phone] Encounter Details Date Type Department Care Team (Late st Contact Info) Description 12/04/2020 Ancillary Orders [facility],Outside Imaging [address] [place], [place] [phone] System, Provider [place] In, [place] [address] Social History Tobacco Use Types Packs/Day Years [...] on filedocumented in this encounter Care Teams Malt Specifications Control Assistant Relationship Specialty Start Date End Date Name, MD Reynold [address] [place] [address] [phone] PCP - General Geriatric Psychiatry 10/26/19 documented as of this encounter Additional Source Comments The information contained in this document represents components of the legal health record. It is not the complete legal health record.[facility]
--- OUTSIDE RECORDS SUMMARY | 2025-06-17 07:09 | XMS_ITS | Encounter Summary ---
Author Organization [employer] Address [address] [facility] [address] 7t [place] [address] Care Team Providers Care Capacity Planner Name Role Phone Name, Reynold FAUST Primary Care Provider [phone] Reason for Visit * Reason Onset Date Comments New Med Request 2024 Encounter Details Date Type Department Care Team ([facility] st Contact Info) Description 2024 Telephone [facility] MEDICINE [address] [place] [address] Name, MD Reynold 230 [place] [address] New Med Request Social History Tobacco Use [...] T/C to pt. For below message through [place]itals interpreters id - [id number], pt. Verbally greed and understood. * Telephone [...] Description 07/12/2025 2:00 PM EDT Office Visit [facility] OPTOMETRY [address] [place] [address] Xiao Cali, OD [address] [place] [address] 08/01/2025 9:45 AM EST Office Visit [facility] MEDICINE 230 [place] [address] 08/31/2025 9:45 AM EST Office Visit [facility] MEDICINE [address] [place] [address] NameReynold MD [address] [place] [address] documented as of this encounter Visit Diagnoses Not on filedocumented in this encounter Additional Health Concerns Assessment Noted Time PHQ-9 Depression Total Score: 7 12/11/19 24 11:10 AM EDT documented as of this encounter Care Teams Capacity Planner Relationship Specialty Start Date End Date NameReynold MD [address] [place] [address] PCP - General Family Medicine 12/26/15 documented as of this encounter
--- OUTSIDE RECORDS SUMMARY | 2025-06-17 07:09 | XMS_ITS | Encounter Summary ---
Author Organization [employer] Address [address] [place] [address] Care Team Providers Care Truck Headlight Assembler Name Role Phone Name, Reynold FAUST Primary Care Provider [phone] Reason for Visit * Reason Onset Date Comments nov recalls 06/15/2025 Encounter Details Date Type Department Care Team (Late st Contact Info) Description 06/15/2025 Telephone [facility] MEDICINE [address] [place] [address] Tommy Malave MA nov recalls Social History Tobacco Use Types Packs/Day Years [...] encounter Miscellaneous Notes * Telephone Encounter - Tommy Malave MA - 06/15/2025 2:06 PM EDT Telephone call to patient to schedule the following recall: Visit type: Follow up Appointment notes: HTN Patient agree to appointment on 08/31/25 at 9;45 AM with Name. documented in this encounter Plan of Treatment Upcoming Encounters Date Type Department Care Team (Late st Contact Info) Description 07/12/2025 2:00 PM EDT Office Visit [facility] OPTOMETRY [address] [place] [address] Xiao Cali, OD [address] [place] [address] 08/01/2025 9:45 AM EST Office Visit [facility] MEDICINE [address] [place] [address] 08/31/2025 9:45 AM EST Office Visit [facility] MEDICINE [address] [place] [address] Reynold Crowell MD [address] [place] [address] documented as of this encounter Visit Diagnoses Not on filedocumented in this encounter Additional Health Concerns Assessment Noted Time PHQ-9 Depression Total Score: 9 04/17/20 10:41 AM EDT documented as of this encounter Care Teams Truck Headlight Assembler Relationship Specialty Start Date End Date NameReynold MD [address] [place] [address] PCP - General Family Medicine 12/26/15 documented as of this encounter
--- OUTSIDE RECORDS SUMMARY | 2025-06-17 07:09 | XMS_ITS | Encounter Summary ---
Author Organization [employer] Address [address] [place] [address] Care Team Providers Care Traffic Chief Name Role Phone Name, Reynold FAUST Primary Care Provider [phone] Reason for Visit * Reason Onset Date Comments partial adjustment made elsewhere 11/04/2024 Encounter Details Date Type Department Care Team ([facility] st Contact Info) Description 11/04/2024 Telephone C ADULT DENTAL [address] [place] [address] Elisabet Greer, DDS [address] [place] [address] partial adjustment made elsewhere Social History Tobacco [...] fashioned by our clinic. DR Luis carries [employer] [facility] for insurance and we accept [employer] [facility] [place] insurance in our facilities documented in this encounter Plan of Treatment Upcoming Encounters Date Type Department Care Team (Late st Contact Info) Description 07/12/2025 2:00 PM EDT Office Visit [facility] OPTOMETRY [address] [place] [address] Xiao Cali, OD [address] [place] [address] 08/01/2025 9:45 AM EST Office Visit [facility] MEDICINE [address] [place] [address] 08/31/2025 9:45 AM EST Office Visit [facility] MEDICINE [address] [place] [address] Name, MD Reynold [address] [place] [address] documented as of this encounter Visit Diagnoses Not on filedocumented in this encounter Additional Health Concerns Assessment Noted Time PHQ-9 Depression Total Score: 7 12/11/19 24 11:10 AM EDT documented as of this encounter Care Teams Traffic Chief Relationship Specialty Start Date End Date Name, MD Reynold [address] [place] [address] PCP - General Family Medicine 12/26/15 documented as of this encounter
--- OUTSIDE RECORDS SUMMARY | 2025-06-17 07:09 | XMS_ITS | Encounter Summary ---
Author Organization [facility] Address [address] [place] [address] Phone Care Team Providers Care Central Control Room Operator Name Role Phone Name, Reynold FAUST Primary Care Provider [phone] Encounter Details Date Type Department Care Team (Late st Contact Info) Description 12/04/2020 Ancillary Orders [facility],Outside Imaging [address] [place] [address] System, Provider Not In, [place] [address] Social History Tobacco Use Types Packs/Day Years [...] on filedocumented in this encounter Care Teams Central Control Room Operator Relationship Specialty Start Date End Date Name, MD Reynold [address] [place], [place] [phone] PCP - General Geriatric Psychiatry 10/26/19 documented as of this encounter Additional Source Comments The information contained in this document represents components of the legal health record. It is not the complete legal health record.[facility]
--- OUTSIDE RECORDS SUMMARY | 2025-06-17 07:09 | XMS_ITS | Encounter Summary ---
Author Organization [employer] Address [address] 7t [place] [address] Care Team Providers Care Heel Seam Rubber Name Role Phone Name, Reynold FAUST Primary Care Provider [phone] Reason for Visit * Reason Comments Med Refill Encounter Details Date Type Department Care Team ([facility] Contact Info) Description 12/22/2022 Refill [facility] CH[facility] MED & PEDS [address] [place], [place] [phone] Name, MD Reynold [address] [place] [address] Rash Social History Tobacco Use Types Packs/Day [...] Upcoming Encounters Date Type Department Care Team ([facility] Contact Info) Description 07/12/2025 2:00 PM EDT Office Visit [facility] OPTOMETRY [address] [place], [place] [phone] Xiao Cali, IRMA [address] [place] [address] 08/01/2025 9:45 AM EST Office Visit [facility] MEDICINE [facility] [address] 08/31/2025 9:45 AM EST Office Visit [address] [address] Name, [place] [address] documented as of this encounter Visit Diagnoses Diagnosis Rash Rash and other nonspecific skin eruption documented in this encounter Care Teams Heel Seam Rubber Relationship Specialty Start Date End Date Name, [place] [address] PCP - General Family Medicine 12/26/15 documented as of this encounter
--- OUTSIDE RECORDS SUMMARY | 2025-06-17 07:09 | XMS_ITS | Encounter Summary ---
Author Organization [employer] Address [address] 7t [place] [address] Care Team Providers Care Law Tutor Name Role Phone Name, Reynold FAUST Primary Care Provider [phone] Reason for Visit * Reason Onset Date Comments Durable Medical Equipment 06/13/2025 Encounter Details Date Type Department Care Team ([facility] st Contact Info) Description 06/13/2025 Telephone [facility] MEDICINE [address] [place] [address] Name, MD Reynold [address] [place] [address] Durable Medical Equipment Social History Tobacco Use Types Packs/Day Years [...] * Telephone Encounter - Ginny Liang - 06/13/2025 10:43 AM EDT Rx for 12 grab bars generated and sent to scan. * Telephone Encounter - Ginny Liang - 06/13/2025 10:43 AM EDT ----- Message from Lolis Cruz sent at 06/13/2025 9:51 AM EDT ----- Regarding: DME request Greetings, I am (Lolis Ortiz), Laborer [employer] Concrete for [facility] Care Management, requesting the following DME???s on behalf of patient. 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 Separator Operator: Lolis Ortiz E-mail: [email or web address] Catalog Librarian: Ashtyn Vega E-mail: [email or web address] Thanks in advance for your assistance with this request. Sincerely, [facility] Care Management documented in this encounter Plan of Treatment Upcoming Encounters Date Type Department Care Team (Late st Contact Info) Description 07/12/2025 2:00 PM EDT Office Visit [facility] OPTOMETRY [address] [place] [address] Xiao Cali, OD [address] [place] [address] 08/01/2025 9:45 AM EST Office Visit [facility] MEDICINE [address] [place] [address] 08/31/2025 9:45 AM EST Office Visit [facility] MEDICINE [address] [place] [address] Name, MD Reynold [address] [place] [address] documented as of this encounter Visit Diagnoses Not on filedocumented in this encounter Additional Health Concerns Assessment Noted Time PHQ-9 Depression Total Score: 9 04/17/20 25 10:41 AM EDT documented as of this encounter Care Teams Law Tutor Relationship Specialty Start Date End Date NameReynold MD [address] [place] [address] PCP - General Family Medicine 12/26/15 documented as of this encounter
--- OUTSIDE RECORDS SUMMARY | 2025-06-17 07:09 | XMS_ITS | Encounter Summary ---
Author Organization [facility] Address [address] [facility] [place] [address] Phone Care Team Providers Care Architectural Project Manager Name Role Phone Name, Reynold FAUST Primary Care Provider [phone] Encounter Details Date Type Department Care Team (Late st Contact Info) Description 10/27/2019 Ancillary Orders [facility],Outside Imaging [address] [place] [address] System, Provider Not In, [facility] [address] [address] Social History Tobacco Use Types Packs/Day Years [...] on filedocumented in this encounter Care Teams Architectural Project Manager Relationship Specialty Start Date End Date Name, MD Reynold [address] [place] [address] PCP - General Geriatric Psychiatry 10/26/19 documented as of this encounter Additional Source Comments The information contained in this document represents components of the legal health record. It is not the complete legal health record.[facility]
--- OUTSIDE RECORDS SUMMARY | 2025-06-17 07:09 | XMS_ITS | Encounter Summary ---
Author Organization [employer] Address [address] [facility] 7t [place] [address] Care Team Providers Care Hazard Waste Handler Name Role Phone Name, Reynold FAUST Primary Care Provider [phone] Reason for Visit * Reason Comments Med Refill Encounter Details Date Type Department Care Team (Late Contact Info) Description 03/13/2023 Refill [facility] MEDICINE [address] [place] [address] Name, MD Reynold [address] [place] [address] Chronic cough Social History Tobacco Use Types [...] Office Visit [facility] OPTOMETRY [address] [place] [address] Xiao Cali, OD [address] [place] [address] 08/01/2025 9:45 AM EST Office Visit [facility] MEDICINE [address] [place] [address] 08/31/2025 9:45 AM EST Office Visit [facility] MEDICINE [address] [place] [address] Name, MD Reynold [address] [place] [address] documented as of this encounter Visit Diagnoses Diagnosis Chronic cough Cough documented in this encounter Care Teams Hazard Waste Handler Relationship Specialty Start Date End Date Name, MD Reynold [address] [place] [address] PCP - General Family Medicine 12/26/15 documented as of this encounter
--- OUTSIDE RECORDS SUMMARY | 2025-06-17 07:09 | XMS_ITS | Encounter Summary ---
Author Organization [employer] Address [address] [facility] 7t [place] [address] Care Team Providers Care Vp Ad Products And Planning Name Role Phone Name, Reynold FAUST Primary Care Provider [phone] Reason for Visit * Reason Comments Med Refill Encounter Details Date Type Department Care Team (Late st Contact Info) Description 04/02/2023 Refill [facility] MEDICINE [address] [place] [address] Name, MD Reynold [address] [place] [address] Chronic cough Social History Tobacco Use Types [...] 2:00 PM EDT Office Visit [facility] OPTOMETRY [address] [place] [address] Xiao Cali, OD [address] [place] [address] 08/01/2025 9:45 AM EST Office Visit [facility] MEDICINE [address] [place] [address] 08/31/2025 9:45 AM EST Office Visit [facility] MEDICINE [address] [place] [address] Name, MD Reynold [address] [place] [address] documented as of this encounter Visit Diagnoses Diagnosis Chronic cough Cough documented in this encounter Care Teams Vp Ad Products And Planning Relationship Specialty Start Date End Date Name, MD Reynold [address] [place] [address] PCP - General Family Medicine 12/26/15 documented as of this encounter
== END 2025-06-17 07:07 | disposition home or self-care (01) ==
LOC: HO.CT 07:06
PROVIDERS: PCP Internal Medicine Geriatric Medicine; Visit Provider Hospitalist
DX: R91.8 Other nonspecific abnormal finding of lung field (principal)
CPT/HCPCS: 71250

== ENCOUNTER 2025-06-28 09:34 | Outpatient (AMB) | payer OTHER, SELFPAY ==
--- NOTE | 2025-06-28 09:48 | A.OFFVIS_ITS ---
Vital Signs 06/28/25 09:49 Height 4 ft 11 in Weight 146 lb 9.718 oz BMI 29.6 BP 170/74 H Blood Pressure Location Lt brachial Position Sitting Pulse 86 Pulse Source Pulse Oximeter Pulse Oximetry (%) 95 Oxygen Delivery Method Room Air Intake Visit Reasons: Cough Accompanied by: Self / Same As Patient Allergies folic acid Adverse Reaction (Unknown, Verified 06/28/25 09:52) Rash on neck HPI Comments Details: The patient is a 60 year woman with a known history of rheumatoid arthritis in addition to breast cancer status post radiation and also surgery. Apparently she has been developing worsening cough. The cough is moderate severe. Worse when she lays flat. At times is productive. She does have a rescue inhaler that does provide her some relief. At this point the cough is a little better. She did have a chest x-ray demonstrating evidence of peribronchial cuffing suggesting some degree of bronchitis. The patient does have underlying connective tissue conditions and she did follow-up with Rheumatology. The recommendation was for her to have a CT scan of the chest with high-resolution cuts to assess for interstitial lung disease related to her connective tissue disease. The CT scan has not been completed as of yet. Will follow up with the results. In the meantime will request additional blood work. since the patient is doing well will hold off on additional medications. If the patient has any worsening symptoms prior to the next visit she is to call for further evalu ation. Will await the blood work and also await her CT scan of the chest for further recommendations. 06/01/2023 the patient overall so better. Her cough is significantly better. She was recently placed on methotrexate and seems to be tolerating well. No evidence of any pulmonary adverse effects from the methotrexate at this time. Explained to the patient ultimately treating her rheumatoid arthritis may also improve her airway issues. We did review her blood work no significant allergies noted. Also she had a CT scan of the chest which we personally reviewed no evident a evidence of interstitial lung disease. The patient does have pulmonary nodules bilaterally that we need to be followed up with a CT scan in a year's time. This would be February of 2024. the patient does have a rescue inhaler that she is not required. at this point the patient is going to continue with short-acting beta agonist. Will continue to monitor her response to methotrexate. Will follow-up in February after her CT scan. 07/01/2024 the patient is here for a pulmonary follow-up visit. Overall she is doing okay. The patient did stop taking the methotrexate because she was having an allergy issue. She was then offered Enbrel but then she stopped that it to because she was concerned about the shots. She has been without any medications. As far as her lungs she did have a CT scan of the chest which we personally reviewed. No evidence of any significant pulmonary nodules just measuring 3 mm in size. No evidence of any interstitial lung disease which is reassuring. The patient will get another CT scan in a year's time. She will continue with current respiratory regimen. And I did recommend she follow-up with a emergency detail driver to make sure that her connective tissue disease does not progress into the lungs. 06/28/2025 the patient is here for pulmonary follow-up visit. She has multiple complaints. She has a cough chest congestion. Moderate severity. She does use her rescue inhaler but right now she is not on any maintenance therapy. She also has significant issues with gastroparesis. She is following closely with GI. The patient also has significant rheumatoid arthritis. She has not been able to tolerate the medications that had been prescribed. She will be following up with Rheumatology soon. We did review her blood work and her allergy testing. No significant allergies to no. Therefore is unlikely that her underlying asthma is allergic related. The patient did have a CT scan of the chest which we personally reviewed. Her pulmonary nodules are stable which were reassuring. She does have some debris in the esophagus consistent with her dysmotility syndrome. And does have evidence of of chronic bronchitis. Will go ahead and start her on maintenance therapy. In addition to that the patient can start azithromycin 3 times a week as a promotility agent and also to help with the chest congestion and chronic bronchitis. She was stopped the Seroquel while on the azithromycin. She can continue the azithromycin for 6-8 weeks and then stop it. Will follow-up sometime after that patient will need to have pulmonary function studies and further imaging studies in the future. 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 Surgical History History of eye surgery History of breast surgery (~11/11/19) History of esophagogastroduodenoscopy (EGD) H/O tubal ligation History of lumpectomy of both breasts (~10/03/19) Family History Mother HTN (hypertension) Father Diabetes Daughter Fibromyoma Maternal Aunt Cervical cancer Social History Household Members: None Housing: Apartment Are you a primary nonfarm animal caretaker to a significant other at home: No Do you presently have visiting nurse or other home services: Yes ([facility]) Alcohol intake: never Patient Tobacco Use Status: Former Tobacco user service: No Current occupational status: unemployed Female Reproductive History Menstrual Age of Menarche: 10 Review of Systems Const Reports weight loss Eyes Reports dry eyes and Reports itchy eyes ENT Reports dry mouth and Reports tinnitus Card Denies dyspnea on exertion Resp Denies cough and Denies dyspnea on exertion GI Reports constipation, Reports nausea and Reports vomiting Musc Reports deformity, Reports arthralgias, Reports joint swelling, Reports limited range of motion and Reports stiffness Psych Reports anxiety Aller/Immun Reports itchy eyes Physical Exam Vital Signs: Last Vital Signs Pulse 86 06/28/25 09:49 BP 170/74 H 06/28/25 09:49 Pulse Ox 95 06/28/25 09:49 Oxygen Delivery Method Room Air 06/28/25 09:49 BMI result Body Mass Index 29.6 Const General: cooperative, healthy appearing and comfortable Nutritional Appearance: overweight Orientation/consciousness: patient oriented x3 Limitations: no limitations HEENT Head: Yes normocephalic and Yes atraumatic Mouth: moist mucous membranes Resp Effort & Inspection: normal respiratory effort and able to speak in complete sentences Auscultation: clear to auscultation bilaterally Cardio Rate: regular rate Rhythm: regular rhythm Heart sounds: S1 normal heart sound present and S2 normal heart sound present GI Inspection: No distended Palpation (GI): Soft to palpation and nontender Skin General skin exam: no rashes or lesions noted Neuro General: patient oriented x3 Assessment & Plan Assessment & Plan (1) Bronchitis: Code(s): J40 - Bronchitis, not specified as acute or chronic Category: Medical (2) Chronic cough: Code(s): R05.3 - Chronic cough Category: Medical (3) Rheumatoid arthritis: Comment: -ve +++CCP dx 2020 HCQ started 11/2020. Caused GI upset and discontinued MTX 03/2023 had an allergic reaction to folic acid Code(s): M06.9 - Rheumatoid arthritis, unspecified Category: Medical Qualifiers: Rheumatoid arthritis location: multiple sites Rheumatoid factor presence: without rheumatoid factor Qualified Code(s): M06.09 - Rheumatoid arthritis without rheumatoid factor, multiple sites (4) Allergic rhinitis: Code(s): J30.9 - Allergic rhinitis, unspecified Category: Medical Qualifiers: Allergic rhinitis seasonality: unspecified Allergic rhinitis trigger: other Qualified Code(s): J30.89 - Other allergic rhinitis (5) Radiation fibrosis of lung: Code(s): J70.1 - Chronic and other pulmonary manifestations due to radiation Category: Medical (6) Pulmonary nodules: Code(s): R91.8 - Other nonspecific abnormal finding of lung field Category: Medical Plan Continue CRISTIN as needed claritin as needed Fluticasone nasal spray start Trelegy daily start Azithromycin MWF (will hold Seroquel) F/U 3-4 months Medications: New azithromycin Take 1 tablet on Thursday/Thursday/Thursday 250 mg PO 3XW 12 tabs 1RF 28 days K21.9 - Gastro-esophageal reflux disease without esophagitis eemsjkijxij-xyswmaavt-devnlsyf 200-62.5-25 mcg (Trelegy Ellipta) 1 inh inhalation DAILY 60 ea 12RF 30 days Changed From albuterol sulfate 90 mcg/actuation (Ventolin HFA) 90 mcg inhalation DAILY To albuterol sulfate 90 mcg/actuation (Ventolin HFA) 2 puffs inhalation Q6H PRN 8.5 grams 6RF shortness of breath or wheezing Coding Level of Care Code Est Pt Level 4 (64141) Complex EM visit Add On G2211 Diagnoses Bronchitis J40 Chronic cough R05.3 Rheumatoid arthritis of multiple sites with negative rheumatoid factor M06.09 Rheumatoid arthritis location: multiple sites Rheumatoid factor presence: without rheumatoid factor Allergic rhinitis due to other allergic trigger, unspecified seasonality J30.89 Allergic rhinitis seasonality: unspecified Allergic rhinitis trigger: other Radiation fibrosis of lung J70.1 Pulmonary nodules R91.8 Time Spent (min) 17
[2025-06-28 09:49] VITALS: BP 170/74; PULSE 86; O2SAT 95; BMI 29.6
== END 2025-06-28 10:20 | disposition home or self-care (01) ==
LOC: HO.HPS 09:35
PROVIDERS: PCP Internal Medicine Geriatric Medicine; Visit Provider Hospitalist
DX: J40 Bronchitis, not specified as acute or chronic (principal); R05.3 Chronic cough; M06.09 Rheumatoid arthritis without rheumatoid factor, multiple sites; J30.89 Other allergic rhinitis; J70.1 Chronic and other pulmonary manifestations due to radiation; R91.8 Other nonspecific abnormal finding of lung field
CPT/HCPCS: 99214; G2211

== ENCOUNTER → 2025-06-28 09:34 | Outpatient (BNVA) | payer OTHER, SELFPAY | PROVIDERS: PCP Internal Medicine Geriatric Medicine; Visit Provider Hospitalist | DX: R05.3 Chronic cough (principal); J31.0 Chronic rhinitis; J40 Bronchitis, not specified as acute or chronic; M06.09 Rheumatoid arthritis without rheumatoid factor, multiple sites; R91.8 Other nonspecific abnormal finding of lung field; K21.9 Gastro-esophageal reflux disease without esophagitis | CPT/HCPCS: 99212 ==

== ENCOUNTER 2025-07-14 10:27 | Outpatient (REF) | payer OTHER, SELFPAY ==
--- OUTSIDE RECORDS SUMMARY | 2025-07-12 14:00 | XMS_ITS | Encounter Summary ---
Author Organization [employer] Address [address] [place] [address] Care Team Providers Care E Commerce Director Name Role Phone Name, Reynold FAUST Primary Care Provider [phone] Reason for Referral * Consultation (Routine) - Pending Review Specialty Diagnoses / Procedures Referred By Dara gutierrez Referred To Contact Ophthalmology Diagnoses Dermatochalasis of both upper eyelids Xiao Cali, IRMA [address] [place] [address] Phone: tel: fax: Flavio Neil [address] [place] [phone] Referral ID Status Reason Start Date Expiration Date Visits Requested Visits Authorized [id number] Pending Review Specialty Services Required 07/12/2026 1 1 Encounter Details Date Type Department Care Team (Late st Contact Info) Description 07/12/2025 2:00 PM EDT Office Visit [facility] [address] [place], [place] [phone] Xiao Cali, IRMA [address] [place] [address] Dry eyes, bilateral (Primary Dx); Papilloma of right lower eyelid; Dermatochalasis of both upper eyelids; Presbyopia; Elevated IOP, bilateral Social History Tobacco Use Types Packs/Day Years [...] as of this encounter Progress Notes * Xiao Cali, OD - 07/12/2025 2:00 PM EDT Eye Care Progress Note Patient ID: Cece Maurer is a 60 y.o. female. HPI Patient presents for comprehensive eye exam and ocular health assessment with complaints of dry eyes OU with associated pain and burning. Patient used to use OTC artificial tear ointment nightly but does not use any drops/treamtent currently. Patient previously had treatment with gel for dry eye that fell out in OD before OS possibly Lacrifill/punctal plugs Patient reports h/o laser 2+ years ago. Unsure what it was for. Patient states that she used to usedrops at night for eye pressure (Latanoprost listed as a previous med) Patient reports blurry vision OU with current specs. Patient reports blurry vision at near with glasses and has to take them off to read. Patient has never had bifocals/reading glasses before. KEVIN: 2-3+ years ago Last edited by Xiao Cali, OD on 07/12/2025 3:11 PM. Current Medications[1] Medical History[2] Surgical History[3] Family History[4] Tobacco Use: Medium Risk (07/12/2025) Tobacco Smoking Tobacco Use: Former Smokeless Tobacco Use: Never Passive Exposure: Not on file Allergies[5] ROS Positive for: Eyes Negative for: Constitutional, Gastrointestinal, Neurological, Skin, Genitourinary, Musculoskeletal,HENT, Endocrine, Cardiovascular, Respiratory, Psychiatric, Allergic/Imm, Heme/Lymph Last edited by Xiao Cali, OD on 07/12/2025 2:04 PM. Base Eye Exam Visual Acuity (Snellen - Linear) Right Left Dist cc 20/25-2 20/20-2 Tonometry (iCare , 2:19 PM) Right Left Pressure 19 21 Pupils Pupils APD Right PERRL None Left PERRL None Visual Sutton (Counting fingers) Left Right Full Full Extraocular Movement Right Left Full Full Neuro/Psych Oriented x3: Yes Mood/Affect: Normal Dilation Both eyes: 1.0% tropicamide @ 2:25 PM Slit Lamp and Fundus Exam External Exam Right Left External Normal Normal MRD1 1.5 mm 2 mm MRD2 3 mm 3 mm Slit Lamp Exam Right Left Lids/Lashes Dermatochalasis UL, papilloma central LL (no madarosis, no feeder vessels, no ulceration), 2+ MGD UL/LL, (+) makeup debris Dermatochalasis UL, 2+ MGD UL/LL, (+) makeup debris Conjunctiva/Sclera White and quiet White and quiet Cornea 3 small scars temporally outside visual axis, 1 small scar nasal to visual axis; 1-2+ inferior SPK 1-2+ inferior SPK Anterior Chamber Deep and quiet, angles open gr 3 T&N Deep and quiet, angles open gr 3 T&N Iris Flat, round; (-) PI Flat, round; (-) PI Lens Tr NS Tr NS Fundus Exam Right Left Vitreous Clear Clear Disc Kurten and healthy Kurten and healthy C/D Ratio Vertical 0.45 0.45 C/D Ratio Horizontal 0.45 0.45 Macula Flat, even pigmentation Flat, even pigmentation Vessels AV 2/3, normal course and caliber AV 2/3, normal course and caliber Periphery No holes/tears/detachments 360 No holes/tears/detachments 360 Lacrimal Exam Lacrimal Tear break-up time OD: 1 sec, OS: 1 sec Refraction Manifest Refraction (Subjective) Sphere Cylinder Odin Dist VA Add Right -2.50 -2.00 032 20/20 +2.50 Left -3.25 -2.00 030 20/20 +2.50 Near VA Both: 20/20 Final Rx Sphere Cylinder Odin Dist VA Add Right -2.50 -2.00 032 20/20 +2.50 Left -3.25 -2.00 030 20/20 +2.50 Expiration Date: 07/12/2026 Comments: Multifocal or separate pairs ok Assessment and Plan Diagnoses and all orders for this visit: Dry eyes, bilateral - Symptomatic for pain, burning and discomfort OU - Patient not currently using any dry eye treatment. Recommended use of artificial tears 3-4x/day and ointment at night OU. Rx for tears/ointment sent to pharmacy per patient. Patient also given dry eye handout with OTC options if Rx'd meds are not available - Patient previously had treatment done where she describes a gel was inserted into the eye to treat dryness but right eye gel fell out before left eye - lacrifill or punctal plugs? - Discussed option of punctal plugs for dry eye management - patient very interested. Referral placed to Dr. Banks for punctal plug placement Papilloma of right lower eyelid - No high risk characteristics. Patient says it has been present and unchanged for years. Patient reports occasional irritation/itching. Discussed options of monitoring vs surgical excision. Patient opts to continue monitoring at this time. Dermatochalasis of both upper eyelids - OD: MRD 1 1.5mm, MRD 2 3mm, OS: MRD 1 2mm, MRD 2 3mm with lashes touching upper lids OU - Discussed option for referral vs continuing to monitor. Patient interested in blepharoplasty consult. Referral sent to Dr. Neil for evaluation Presbyopia - Dispensed updated spec Rx 5. Elevated intraocular pressure, bilateral - Historical per patient - patient reports h/o elevated IOP OD requiring Latanoprost at bedtime (listed in previous meds). Intraocular pressure (IOP) WNL both eyes (OU) with no signs of glaucomatous optic nerve damage RTC in 1 year for comprehensive eye exam or sooner as needed Xiao Cali, OD 07/12/2025, 3:35 PM [1] Current Outpatient Medications Medication Sig Dispense Refill Blood Pressure kit Use twice a day 1 kit 0 calcitriol (Rocaltrol) 0.25 MCG capsule Take 0.25 mcg by mouth Once per day. cholecalciferol (Vitamin D-3) 50 MCG (1999) capsule 50 mcg. cloNIDine (Catapres) 0.2 MG tablet TAKE 1 TABLET BY MOUTH EVERY DAY 90 tablet 1 dexlansoprazole (Dexilant) [address] capsule Take 1 capsule by mouth in the morning. famotidine (Pepcid) 40 MG tablet Take 40 mg by mouth at bedtime. hydrocortisone 1 % cream APPLY TO AFFECTED AREA TWICE A DAY 56.8 g 3 ibuprofen 600 MG tablet TAKE 1 TABLET BY MOUTH EVERY 8 HOURS NEEDED FOR MILD TO MODERATE PAIN 60tablet 0 LORazepam (Ativan) 0.5 MG tablet Take 0.5 mg by mouth if needed each day for anxiety. nystatin (Mycostatin) cream Apply 1 Application. topically 2 times daily. polyvinyl alcohol (Liquifilm Tears) 1.4 % ophthalmic solution Administer 1 drop into both eyes 3 times daily. 15 mL 6 QUEtiapine (SEROquel) 50 MG tablet Take 50 mg by mouth 2 times daily. traMADol (Ultram) 50 MG tablet TAKE 1 TABLET BY MOUTH IN THE MORNING, AT NOON AND AT BEDTIME IF NEEDED FOR SEVERE PAIN 84 tablet 0 Ventolin HFA 108 (90 Base) MCG/ACT inhaler INHALE 2 PUFFS EVERY 6 HOURS IF NEEDED FOR WHEEZING. 18 g 2 White Petrolatum-Mineral Oil (Lubricant Eye) ointment Apply 1 Application to affected eye(s) at bedtime. 3.5 g 6 Current Facility-Administered Medications Medication Dose Route Frequency Provider Last Rate Last Admin lidocaine (Xylocaine) 2 % injection 20 mg 1 mL Infiltration Once Dayron Hooks MD [2] Past Medical History: Diagnosis Date Asthma Breast cancer (CMS/HCC) (HCC) Bilateral breast cancer detected 2018 and Sep 2019 Pt had surgery to remove the lumps Hypertension Osteoporosis Rheumatoid arthritis (CMS/HCC) (HCC) Steatosis of liver Thrombocytopenia (CMS/HCC) [3] History reviewed. No pertinent surgical history. [4] Family History Problem Relation Name Age of Onset Ovarian cancer Mother's Sister 59 [5] Allergies Allergen Reactions Folic Acid Rash Other Reaction(s): Rash on neck documented in this encounter Plan of Treatment Upcoming Encounters Date Type Department Care Team (Late st Contact Info) Description 08/01/2025 9:45 AM EST Office Visit [facility] [address] [place] [phone] 08/31/2025 9:45 AM EST Office Visit [address] [address] Name, MD Reynold [address] [place] [address] Scheduled Referrals Name Type Priority Associated Diagnoses Order Schedule Referral to Ophthalmology Outpatient Referral Routine Dermatochalasis of both upper eyelids Expected: 07/12/2025 (Approximate), Expires: 07/12/2026 documented as of this encounter Procedures Procedure Name Priority Date/Time Associated Diagnosis Comments OCT, OPTIC NERVE - OU - BOTH EYES Routine 07/12/2025 3:35 PM EDT Elevated IOP, bilateral documented in this encounter Results * OCT, Optic Nerve - OU - Both Eyes (07/12/2025 3:35 PM EDT) Xiao Reveles, OD - 07/12/2025 3:35 PM EDT Good quality scans both eyes (OU) Robust RNFL 360 both eyes (OU). Robust ganglion cell layer (GCL) 360 both eyes (OU). Baseline images taken today. No signs of glaucomatous optic nerve damage. Monitor. Xiao Cali OD OPHTH TOMOGRAPHY Final Result documented in this encounter Visit Diagnoses Diagnosis Dry eyes, bilateral- Primary Papilloma of right lower eyelid Dermatochalasis of both upper eyelids Presbyopia Elevated IOP, bilateral documented in this encounter Additional Health Concerns Assessment Noted Time PHQ-9 Depression Total Score: 9 04/17/20 25 10:41 AM EDT documented as of this encounter Care Teams E Commerce Director Relationship Specialty Start Date End Date Name, MD Reynold [address] [place] [address] PCP - General Family Medicine 12/26/15 documented as of this encounter
--- NOTE | ~2025-07-14 | US_ITS ---
EXAMINATION: US PELVIS TRANSABDOMINAL AND TRANSVAGINAL HISTORY: D25.9 - Leiomyoma of uterus, unspecified COMPARISON: Comparison is made with the prior examination dated 12/16/2024. TECHNIQUE: Transabdominal and endovaginal real-time 2D wynne-scale ultrasound was performed. FINDINGS: Uterus: The uterus is normal in size, measuring 5.5 x 3.1 x 3.9 cm. Myometrium has a normal echotexture. There is an anterior fibroid measuring 10 x 9 x 9 mm. Endometrium: The endometrial stripe measures 3 mm in thickness. There is a 1.4 x 0.7 x 1.1 cm mass in the region of the cervix which could represent a polyp. Right ovary: The right ovary is not identified. Left ovary: The left ovary is not identified. Pelvic fluid: none. US/US pelvic and transvaginal IMPRESSION: 1. 1.4 x 0.7 x 1.1 cm mass in the cervix which could represent a polyp. Hysteroscopy is suggested. 2. 10 mm anterior uterine fibroid. Electronically signed by: Darren Wagoner MD 07/14/2025 11:41 AM EDT
--- OUTSIDE RECORDS SUMMARY | 2025-07-14 12:00 | XMS_ITS | Encounter Summary ---
Author Organization [facility] Address [address] [facility] [address] [place] [address] Phone Care Team Providers Care Crime Scene Examiner Name Role Phone Name, Reynold FAUST Primary Care Provider [phone] Encounter Details Date Type Department Care Team (Late st Contact Info) Description 10/27/2019 Ancillary Orders [facility],Outside Imaging [address] [place] [address] System, Provider Not In, [facility] [address] [address] Social History Tobacco Use Types Packs/Day Years [...] on filedocumented in this encounter Care Teams Crime Scene Examiner Relationship Specialty Start Date End Date Name, MD Reynold [address] [place] [address] PCP - General Geriatric Psychiatry 10/26/19 documented as of this encounter Additional Source Comments The information contained in this document represents components of the legal health record. It is not the complete legal health record.[facility]
--- OUTSIDE RECORDS SUMMARY | 2025-07-14 12:00 | XMS_ITS | Encounter Summary ---
Author Organization [facility] Address [address] [facility] [address] [place] [address] Phone Care Team Providers Care Line Patrolman Name Role Phone Name, Reynold FAUST Primary Care Provider [phone] Reason for Visit * Reason Comments Medication Refill Encounter Details Date Type Department Care Team (Late st Contact Info) Description 04/26/2020 Refill [facility] Rad Onc [address] [place] [address] Izabel Moran MD [address] [place] [id number] [email or web address] Medication Refill Social History Tobacco Use [...] on filedocumented in this encounter Care Teams Line Patrolman Relationship Specialty Start Date End Date Name, MD Reynold [address] [place] [address] PCP - General Geriatric Psychiatry 10/26/19 documented as of this encounter Additional Source Comments The information contained in this document represents components of the legal health record. It is not the complete legal health record.[facility]
--- OUTSIDE RECORDS SUMMARY | 2025-07-14 12:00 | XMS_ITS | Clinical Summary ---
Author Organization [employer] Address [address] [place] [address] Care Team Providers Care Senior Grants Officer Name Role Phone Name, Reynold FAUST Primary Care Provider [phone] Allergies Active Allergy Reactions Criticality Noted Date [...] 02/08/20 25 Active cloNIDine (Catapres) 0.2 MG tabletIndicatio ns:Essential hypertension TAKE 1 TABLET BY MOUTH EVERY DAY 90 tablet 1 02/28/20 25 Active hydrocortisone 1 % creamIndication s:Rash APPLY TO AFFECTED AREA TWICE A DAY 56.8 g 3 05/09/20 25 Active ibuprofen 600 MG tablet TAKE 1 TABLET BY MOUTH EVERY 8 HOURS NEEDED FOR MILD TO MODERATE PAIN 60 tablet 07/04/20 25 Active traMADol (Ultram) 50 MG tabletIndicatio ns:Chronic pain syndrome TAKE 1 TABLET BY MOUTH IN THE MORNING, AT NOON AND AT BEDTIME IF NEEDED FOR SEVERE PAIN 84 tablet 07/12/20 25 025 Active White Petrolatum-Mine ral Oil (Lubricant Eye) ointmentIndicat ions:Dry eyes, bilateral Apply 1 Application to affected eye(s) at bedtime. 3.5 g 6 07/12/20 25 026 Active polyvinyl alcohol (Liquifilm Tears) 1.4 % ophthalmic solutionIndicat ions:Dry eyes, bilateral Administer 1 drop into both eyes 3 times daily. 15 mL 6 07/12/20 25 026 Active ibuprofen 600 MG tablet TAKE 1 TABLET BY MOUTH EVERY 8 HOURS NEEDED FOR MILD TO MODERATE PAIN 60 tablet 05/31/20 25 025 Discontinued traMADol (Ultram) 50 MG tabletIndicatio ns:Chronic pain syndrome TAKE 1 TABLET BY MOUTH IN THE MORNING, AT NOON AND AT BEDTIME IF NEEDED FOR SEVERE PAIN 84 tablet 06/14/20 25 025 Discontinued polyvinyl alcohol (Liquifilm Tears) 1.4 % ophthalmic solution Administer 1 drop into both eyes 3 times daily. 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 Pain, dental 12/01/2023 Rheumatoid arthritis (CMS/HCC) 11/13/2022 Overview (12/02/2024): -ve +++CCP dx 2020 HCQ started 11/2020. Caused GI upset and discontinued MTX 03/2023 had an allergic reaction to folic acid Assessment & Plan (05/30/2025 12:35 PM EDT): - Continues [facility] - Good engagement and participation with Group Medical Visit model - Encouraged multifactorial approach to pain control including pharm and non- pharm modalities - UTOX and Pill count as expected Assessment & Plan (03/28/2025 4:30 PM EDT): - continues following with [facility] Assessment & Plan (01/31/2025 4:44 PM EDT): - continues following with 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 Date Type Department Care Team Description 07/14/2025 Orders Only [facility] External Provider, [facility] 07/12/2025 2:00 PM EDT Office Visit [facility] OPTOMETRY [address] [place] [address] Tarka, Xiao, OD Dry eyes, bilateral (Primary Dx); Papilloma of right lower eyelid; Dermatochalasis of both upper eyelids; Presbyopia; Elevated IOP, bilateral 07/12/2025 Travel 07/10/2025 Refill [facility] [address] [place] [address] NameReynold MD Chronic pain syndrome 07/05/2025 Travel 07/04/2025 Refill [facility] [address] [place] [address] eRynold Crowell MD 06/15/2025 Telephone [facility] [address] [place] [address] Tommy Malave MA nov recallsita 06/13/2025 Telephone [facility] [address] [place] [address] Reynold Crowell MD Durable Medical Equipment 06/13/2025 Refill [facility] [address] [place] [address] Reynold Crowell MD Chronic pain syndrome 05/31/2025 Refill [facility] [address] [place] [address] Reynold Crowell MD 05/30/2025 9:45 AM EDT Office Visit [facility] [address] [place] [address] Kristen Williamson, REGISTRATION REP Rheumatoid arthritis involving multiple sites, unspecified whether rheumatoid factor present ([facility]) (Primary Dx); Chronic pain syndrome; Dietary counseling; Exercise counseling; 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 05/30/2025 Travel 05/29/2025 Travel 05/13/2025 Refill [facility] [address] [place] [address] Humaira Ng NP Chronic pain syndrome 05/13/2025 Refill [facility] [address] [place] [address] Reynold Crowell MD 05/13/2025 Refill [facility] [address] [place] [address] Paula Joy NP 05/09/2025 Refill [facility] PEDS [address] [place] [address] Reynold Crowell MD Rash 05/02/2025 Telephone [facility] [address] [place] [address] Reynold Crowell MD Durable Medical Equipment 04/27/2025 9:00 AM EDT Office Visit [facility] ADULT DENTAL [address] [place] [address] Elisabet Greer DDS 04/20/2025 Travel 04/17/2025 Refill [facility] [address] [place] [address] Reynold Crowell MD 04/14/2025 Refill [facility] [address] [place], [place] [phone] Reynold Crowell MD Chronic pain syndrome from [...] Description 08/01/2025 9:45 AM EST Office Visit [facility] [address] [place] [address] 08/31/2025 9:45 AM EST Office Visit [facility] [address] [place] [address] Name, MD Reynold [address] [place] [phone] Health Maintenance Due Date Last Done Comments [...] 03/30/20 25, 12/01/2023, 10/10/2020, Additional history exists Disability Screening 05/29/2026 05/29/2025 Tobacco Screening 07/12/2026 07/12/2025 Dental X-Ray: Full Mouth 12/01/2026 024, 10/29/2023, [...] Date/Time Associated Diagnosis Comments US PELVIS TRANSVAGINAL Routine 07/14/2025 10:56 AM EDT OCT, OPTIC NERVE - OU - BOTH EYES Routine 07/12/2025 3:35 PM EDT Elevated IOP, bilateral CT CHEST WO CONTRAST Routine 06/20/2025 10:02 PM EDT BI US BREAST LIMITED RIGHT Routine 06/05/2025 2:32 PM EDT BI MAMMOGRAM DIAGNOSTIC TOMOSYNTHESIS RIGHT Routine 06/05/2025 2:14 PM EDT POCT ANIKA-14 URINE DRUG SCREEN Routine 05/30/2025 10:22 AM EDT Chronic pain syndrome CASE PRESENTATION, DETAILED AND EXTENSIVE TREATMENT PLANNING Routine 04/27/2025 9:00 AM EDT LIMITED ORAL EVALUATION - PROBLEM FOCUSED Routine 04/27/2025 9:00 AM EDT PROPHYLAXIS - ADULT Routine 03/30/2025 9 :00 AM EDT BITEWINGS - 4 RADIOGRAPHIC IMAGES Routine 03/30/2025 9:00 AM EDT PERIODIC ORAL EVALUATION - ESTABLISHED PATIENT Routine 03/30/2025 9:00 AM EDT PAP SMEAR Routine 11/23/2024 9:23 [...] Health Maintenance Results * US Pelvis Transvaginal (07/14/2025 10:56 AM EDT) Anatomical Region Laterality Modality Pelvis Ultrasound 07/14/2025 10:5 6 AM EDT Narrative 07/14/2025 11:43 AM EDT [address] [address] Ultrasound Report Signed Patient: Cece Espinosa MR#: [id number] : 1965 Acct:[id number] Age/Sex: 60 / F ADM Date: 07/14/25 Loc: HO.US Attending Dr: Ruperto Barrera MD Ordering Physician: Ruperto Barrera MD Date of Service: 07/14/25 Procedure(s): US pelvic and transvaginal Accession Number(s): [id number] cc: Mervat,Reynold FAUST; Ruperto Barrera MD Reason for Exam: D25.9 - Leiomyoma of uterus, unspecified EXAMINATION: US PELVIS TRANSABDOMINAL AND TRANSVAGINAL HISTORY: D25.9 - Leiomyoma of uterus, unspecified COMPARISON: Comparison is made with the prior examination dated 12/16/2024. TECHNIQUE: Transabdominal and endovaginal real-time 2D wynne-scale ultrasound was performed. FINDINGS: Uterus: The uterus is normal in size, measuring 5.5 x 3.1 x 3.9 cm. Myometrium has a normal echotexture. There is an anterior fibroid measuring 10 x 9 x 9 mm. Endometrium: The endometrial stripe measures 3 mm in thickness. There is a 1.4 x 0.7 x 1.1 cm mass in the region of the cervix which could represent a polyp. Right ovary: The right ovary is not identified. Left ovary: The left ovary is not identified. Pelvic fluid: none. US/US pelvic and transvaginal IMPRESSION: 1. 1.4 x 0.7 x 1.1 cm mass in the cervix which could represent a polyp. Hysteroscopy is suggested. 2. 10 mm anterior uterine fibroid. Electronically signed by: Darren Wagoner MD 07/14/2025 11:41 AM EDT Dictated By: Darren Wagoner MD Signed By: <Electronically signed by Darren Wagoner MD in OV> 07/14/25 1141 DD/ 1056 TD/TT: 07/14/25 1118 Warp Worker: Procedure Note Donotuseinterpreter, Image - 07/14/[address] [address] Ultrasound Report Signed Patient: Deanna Espinosa#: [id number] : 1965Acct:[id number] Age/Sex: 60 / FADM Date: 07/14/25 Loc: .US Attending Dr: Ruperto Barrera MD Ordering Physician: Ruperto Barrera MD Date of Service: 07/14/25 Procedure(s): US pelvic and transvaginal Accession Number(s): [id number] cc: Name,Reynold FAUST; Ruperto Barrera MD Reason for Exam: D25.9 - Leiomyoma of uterus, unspecified EXAMINATION: US PELVIS TRANSABDOMINAL AND TRANSVAGINAL HISTORY: D25.9 - Leiomyoma of uterus, unspecified COMPARISON: Comparison is made with the prior examination dated 12/16/2024. TECHNIQUE: Transabdominal and endovaginal real-time 2D wynne-scale ultrasound was performed. FINDINGS: Uterus: The uterus is normal in size, measuring 5.5 x 3.1 x 3.9 cm. Myometrium has a normal echotexture. There is an anterior fibroid measuring 10 x 9 x 9 mm. Endometrium: The endometrial stripe measures 3 mm in thickness. There is a 1.4 x 0.7 x 1.1 cm mass in the region of the cervix which could represent a polyp. Right ovary: The right ovary is not identified. Left ovary: The left ovary is not identified. Pelvic fluid: none. US/US pelvic and transvaginal IMPRESSION: 1. 1.4 x 0.7 x 1.1 cm mass in the cervix which could represent a polyp. Hysteroscopy is suggested. 2. 10 mm anterior uterine fibroid. Electronically signed by: Darren Wagoner MD 07/14/2025 11:41 AM EDT Dictated By: Darren Wagoner MD Signed By: <Electronically signed by Darren Wagoner MD in OV> 07/14/25 1141 DD/ 1056 TD/TT: 07/14/25 1118 Warp Worker: [facility] External Provider IMG US PROCEDURES Final Result * OCT, Optic Nerve - OU - Both Eyes (07/12/2025 3:35 PM EDT) Xiao Reveles, OD - 07/12/2025 3:35 PM EDT Good quality scans both eyes (OU) Robust RNFL 360 both eyes (OU). Robust ganglion cell layer (GCL) 360 both eyes (OU). Baseline images taken today. No signs of glaucomatous optic nerve damage. Monitor. Xiao Cali OD OPHTH TOMOGRAPHY Final Result * CT Chest w/o Contrast (06/20/2025 10:02 PM EDT) Anatomical Region Laterality Modality Body, Chest Computed Tomogra phy 06/20/2025 10:0 2 PM EDT Narrative 06/20/2025 10:04 PM EDT [place] [address] CT Scan Report Signed Patient: Cece Espinosa MR#: [id number] : 1965 Acct:[id number] Age/Sex: 60 / F ADM Date: 06/17/25 Loc: HO.CT Attending Dr: Nelson Metz MD Ordering Physician: Nelson Metz MD Date of Service: 06/17/25 Procedure(s): CT chest wo IV con Accession Number(s): [id number] cc: Reynold Crowell MD; Nelson Metz MD Report Number: [id number]: Total DLP = 133.00 mGy-cm Reason for Exam: R91.8 - Other nonspecific abnormal finding of lung field CLINICAL HISTORY: R91.8 - Other nonspecific abnormal finding of lung field CT Chest without IV contrast: Comparison: 04/28/2024 Findings: Heart size is stable and unchanged from previous exam, with no pericardial effusion. Coronary calcification is unchanged from previous exam. Aorta diameter is normal Pulmonary artery diameter is unremarkable Lymph nodes: No adenopathy Trachea and Esophagus: Unremarkable. No large airway obstruction. Lungs: No consolidations. Multiple small 1-3 mm diameter scattered nodules in both lungs are unchanged in size and configuration when compared to the previous exam. No new nodules are identified. Pleura: No pleural effusion Skeletal: No fractures Below the diaphragm: The visualized portions of liver and spleen are unremarkable. Impression: Unremarkable CT of the chest. Few small scattered 1-3 mm nodular opacities throughout both lungs are unchanged from previous exam, considering slight differences in technique, respiration and positioning compared to the prior studies. Since there has been no change when compared to 02/25/2023 the findings are most consistent with benign granulomas.. This document has been electronically signed by: John Forde MD on 06/20/2025 22:02:31 Dictated By: John Forde MD Signed By: <Electronically signed by John Forde MD in OV> 06/20/252202 DD/ 01 TD/TT: 06/20/252201 Warp Worker: Procedure Note Donotuseinterpreter, Image - 06/20/[address] [place] [address] [address] Scan Report Signed Patient: Cece Espinosa#: [id number] : 1965Acct:[id number] Age/Sex: 60 / FADM Date: 06/17/25 Loc: HO.CT Attending Dr: Nelson Metz MD Ordering Physician: Nelson Metz MD Date of Service: 06/17/25 Procedure(s): CT chest wo IV con Accession Number(s): [id number] cc: Reynold Crowell MD; Nelson Metz MD Report Number: [id number]: Total DLP = 133.00 mGy-cm Reason for Exam: R91.8 - Other nonspecific abnormal finding of lung field CLINICAL HISTORY: R91.8 - Other nonspecific abnormal finding of lung field CT Chest without IV contrast: Comparison: 04/28/2024 Findings: Heart size is stable and unchanged from previous exam, with no pericardial effusion. Coronary calcification is unchanged from previous exam. Aorta diameter is normal Pulmonary artery diameter is unremarkable Lymph nodes: No adenopathy Trachea and Esophagus: Unremarkable. No large airway obstruction. Lungs: No consolidations. Multiple small 1-3 mm diameter scattered nodules in both lungs are unchanged in size and configuration when compared to the previous exam. No new nodules are identified. Pleura: No pleural effusion Skeletal: No fractures Below the diaphragm: The visualized portions of liver and spleen are unremarkable. Impression: Unremarkable CT of the chest. Few small scattered 1-3 mm nodular opacities throughout both lungs are unchanged from previous exam, considering slight differences in technique, respiration and positioning compared to the prior studies. Since there has been no change when compared to 02/25/2023 the findings are most consistent with benign granulomas.. This document has been electronically signed by: John Forde MD on 06/20/2025 22:02:31 Dictated By: John Forde MD Signed By: <Electronically signed by John Forde MD in OV> 06/20/252202 DD/ 01 TD/TT: 06/20/252201 Warp Worker: [facility] External Provider IMG CT PROCEDURES Final Result * BI US Breast Limited Right (06/05/2025 2:32 PM EDT) Anatomical Region Laterality Modality Breast Right Ultrasound 06/05/2025 2:32 PM EDT Narrative 06/05/2025 6:07 PM EDT [address] [place] [address] Ultrasound Report Signed Patient: Cece Espinosa MR#: [id number] : 1965 Acct:[id number] Age/Sex: 60 / F ADM Date: 06/05/25 Loc: HO.MAMMO Attending Dr: Phillip Acuna MD Ordering Physician: Phillip Acuna MD Date of Service: 06/05/25 Procedure(s): US breast RT limited mamm only Accession Number(s): [id number] cc: Phillip Acuna MD; Name,Reynold FAUST Reason [...] 06/05/25 1804 DD/ 1432 TD/TT: 06/05/25 1452 Warp Worker: Procedure Note Donotuseinterpreter, Image - 06/06/2025 [facility] [address] [place], [place] [address] Ultrasound Report Signed Patient: Honorio Espinosaann#: [id number] : 1965Acct:[id number] Age/Sex: 60 / FADM Date: 06/05/25 Loc: HO.MAMMO Attending Dr: Phillip Acuna MD Ordering Physician: Phillip Acuna MD Date of Service: 06/05/25 Procedure(s): US breast RT limited mamm only Accession Number(s): [id number] cc: Phillip Acuna MD; Name,Reynold Reason for Exam: D05.11 - Intraductal carcinoma [...] 06/05/25 1804 DD/ 1432 TD/TT: 06/05/25 1452 Warp Worker: [facility] External Provider IMG US PROCEDURES Final Result * BI Mammogram Diagnostic Tomosynthesis Right (06/05/2025 2:14 PM EDT) Anatomical Region Laterality Modality Breast Right Mammography 06/05/2025 2:14 PM EDT Narrative 06/05/2025 6:07 PM EDT [address] [place] [address] Mammography Report Signed Patient: Cece Espinosa MR#: [id number] : 1965 Acct:[id number] Age/Sex: 60 / F ADM Date: 06/05/25 Loc: HO.MAMMO Attending Dr: Phillip Acuna MD Ordering Physician: Phillip Acuna MD Results: 2Beni gn Findings Date of Service: 06/05/25 Follow Up: 1 Year From [facility] Mammogram Procedure(s): MM tomosynthesis diagnostic RT Accession Number(s): [id number] cc: Phillip Acuna MD; Name,Reynold FAUST Reason [...] 06/05/25 1804 DD/ 1414 TD/TT: 06/05/25 1417 Warp Worker: Procedure Note Donotuseinterpreter, Image - 06/05/2025 [facility] [address] [place] [address] [place] [address] Mammography Report Signed Patient: Cece Espinosa#: MM [id number] : 1965Acct:[id number] Age/Sex: 60 / FADM Date: 06/05/25 Loc: HO.MAMMO Attending Dr: Phillip Acuna MD Ordering Physician: Phillip Acuna MDResults: 2Beni gn Findings Date of Service: 06/05/25Follow Up: 1 [facility] From [facility] Mammogram Procedure(s): MM tomosynthesis diagnostic RT Accession Number(s): [id number] cc: Phillip Acuna MD; Name,Reynold Reason For Exam: D05.10 - Intraductal carcinoma [...] 06/05/25 1804 DD/ 1414 TD/TT: 06/05/25 1417 Warp Worker: [facility] External Provider IMG BI PROCEDURES Final Result * POCT ANIKA-14 Urine Drug Screen (05/30/2025 10:22 AM EDT) THC Negative Negative Cocaine Screen, Urine Negative [...] - 05/30/2025 10:22 AM EDT .UTOX cup Lot#[id number] Exp. 06/27/26 Internal Pass Control Kristen Williamson REGISTRATION REP POINT OF CARE TEST ENTER/EDIT ORDERABLES Final Result * Pap Smear (11/23/2024 9:23 AM EST) Swab Cervix uteri structure / Unknown 11/23/2024 9:23 AM EST 11/24/2024 6:00 AM EST Pan [facility] - 11/28/2024 8:33 AM EDT ----- ------- Name: Cece Espinosa Age/Sex: 59/F : 1965 Unit#: [id number] Attend Dr: KONSTANTIN DAVIS [facility] Re11/23/24 Status: DEP [facility]: [facility] ------- SPEC : [id number] RECD: 11/24/24 STATUS: RAUL RUSSO NUM: [id number] LEVI: 11/23/[address] [facility] [address]: KONSTANTIN DAVIS [facility] ENTERED: 11/24/24 SP TYPE: Pap Smr OTHR [...] 0833 ----- ------- END OF REPORT Konstantin Joel [facility] CYTOLOGY ORDERABLES F inal Result Performing Organization Address [facility] Co de Phone Number [facility] [address] [place] [phone] * HPV DNA, Low/High Risk (11/23/2024 12:00 AM EST) Pathologist [facility] HPV High Risk Negative Negative [facility] HPV Genotype 16 Negative Negative [facility] HPV Genotype 18 Negative Negative [facility] Comment:HPV testing performe d at [facility] (CLIA#[id number]), [address] [place] [address].Testing for HPV was performed using the Connor [...] 11/24/2024 8:5 6 AM EST Konstantin Davis [facility] BLOOD ORDERABLES Megan l Result Performing Organization Address [facility] Co de Phone Number [facility] [address] [place] [phone] * (ABNORMAL) POCT HGB A1C (11/16/2024 2:28 PM EST) Pathologist [facility] Hemoglobin A1C 6.2(A) 4.0 - 6.0 % QC Media Lot # [id number] Lot# Expiration Date ,362,[id number] Blood 11/16/2024 2:28 PM EST Reynold Crowell MD POINT OF CARE TEST ENTER/EDIT OR DERABLES Final Result * Hepatitis Panel, General (10/31/2024 2:04 PM EST) Hepatitis A IgM Nonreactive Nonreactive [facility] Comment:IgM antibodies to CORONADO V not detected; does not exclude earlyacute or recovered HAV infection. ~Hepatitis B Surface Antibody REACTIVE Nonreactive [facility] Comment:REACTIVE: > 11.99 mI U/mL Hepatitis B Core Antibody Nonreactive Nonreactive [facility] Hepatitis C Antibody Nonreactive Nonreactive [facility] Comment:Antibodies to HCV no t detected; does not exclude early acuteHCV infection. Hepatitis B Surface Ag Negative Negative [facility] 10/31/2024 2:04 PM EST 10/31/2024 2:04 PM EST us Generic External Data Provider LAB BLOOD ORDERAB LES Final Result Performing Organization Address City/State/[facility] Co de Phone Number [facility] [address] [place] [phone] * (ABNORMAL) Lipid Panel, Standard (05/14/2024 9:34 AM EDT) Triglycerides 132 <150 mg/dL [facility] Comment:Desirable Triglyceri de: less than 150 mg/dLBorderline High Triglyceride 150-199 mg/dLHigh Triglyceride: 200-499 mg/dLVery High Triglyceride: greater than or equal to 5OO mg/dL Cholesterol 218(H) <200 mg/dL [facility] Comment:Desirable Cholestero l: less than 200 mg/dLBorderline High Cholesterol: 200-239 mg/dLHigh Cholesterol: greater than 239 mg/dL LDL Cholesterol Calculated 130(H) <100 mg/dL [facility] Comment:Desirable LDL: less than 100 mg/dLNear Optimal/Above Optimal LDL: 110- 129 mg/dLBorderline High LDL: 130-159 mg/dLHigh LDL: 160-189 mg/dLVery High LDL: greater than or equal to 190 mg/dL HDL Cholesterol 62 >40 mg/dL [facility] Comment:Desirable HDL: great er than 40 mg/dL Note: This HDL assay may give artificially low results in patients with liver disease. Blood Venous blood specimen / Unknown 05/14/2024 9:34 AM EDT 05/14/2024 9:34 AM EDT us Reynold Name LAB BLOOD ORDERABLES Final Resul t [facility] [address] [place] [phone] from Last 3 Months or Most Recently Relevant to Health Maintenance Insurance [facility] ONE CARE < [address] [place] [id number] * Guarantor: Cece Espinosa Account Type Relation to Patient Date of Phone Billing Address Dental Self [address] [place] [address] [facility] Care Teams Senior Grants Officer Relationship Specialty Start Date End Date Name, MD Reynold [address] [place] [address] PCP - General Family Medicine 12/26/15
--- OUTSIDE RECORDS SUMMARY | 2025-07-14 12:00 | XMS_ITS | Encounter Summary ---
Author Organization [facility] Address [address] [place] [phone] Phone Care Team Providers Care Rn Call Center Name Role Phone Name, Reynold FAUST Primary Care Provider [phone] Encounter Details Date Type Department Care Team (Late st Contact Info) Description 10/27/2019 Ancillary Orders [facility],Outside Imaging [address] [place] [address] System, Provider Not In, [facility] [address] [address] Social History Tobacco Use Types Packs/Day Years [...] on filedocumented in this encounter Care Teams Rn Call Center Relationship Specialty Start Date End Date Name, MD Reynold [address] [place] [address] PCP - General Geriatric Psychiatry 10/26/19 documented as of this encounter Additional Source Comments The information contained in this document represents components of the legal health record. It is not the complete legal health record.[facility]
--- OUTSIDE RECORDS SUMMARY | 2025-07-14 12:00 | XMS_ITS | Encounter Summary ---
Author Organization [facility] Address [address] [facility] [address] [place] [address] Phone Care Team Providers Care Aids Nurse Name Role Phone Name, Reynold FAUST Primary Care Provider [phone] Encounter Details Date Type Department Care Team (Late st Contact Info) Description 12/04/2020 Ancillary Orders [facility],Outside Imaging 30 [place], [place] [phone] System, Provider Not In, [facility] [address] [address] Social History Tobacco Use Types Packs/Day Years [...] on filedocumented in this encounter Care Teams Aids Nurse Relationship Specialty Start Date End Date Name, MD Reynold 230 [place], [place] [phone] PCP - General Geriatric Psychiatry 10/26/19 documented as of this encounter Additional Source Comments The information contained in this document represents components of the legal health record. It is not the complete legal health record.[facility]
--- OUTSIDE RECORDS SUMMARY | 2025-07-14 12:00 | XMS_ITS | Encounter Summary ---
Author Organization [employer] Address [address] [facility] [address] 7t [place] [address] Care Team Providers Care Catalyst Operator Gasoline Name Role Phone Name, Reynold FAUST Primary Care Provider [phone] Reason for Visit * Reason Onset Date Comments Nurse Triage 08/16/2024 Encounter Details Date Type Department Care Team ([facility] st Contact Info) Description 08/16/2024 Telephone [facility] MEDICINE 230 [place] [address] Name, MD Reynold 230 [place] [address] Nurse Triage Social History Tobacco Use Types [...] transportation but, will call to come to [facility] for Thursday evening. Pt agrees with [...] Description 08/01/2025 9:45 AM EST Office Visit [address] [address] 08/31/2025 9:45 AM EST Office Visit [address] [address] NameReynold MD [address] [place] [address] documented as of this encounter Visit Diagnoses Not on filedocumented in this encounter Additional Health Concerns Assessment Noted Time PHQ-9 Depression Total Score: 7 12/11/19 24 11:10 AM EDT documented as of this encounter Care Teams Catalyst Operator Gasoline Relationship Specialty Start Date End Date Reynold Crowell MD [address] [place] [address] PCP - General Family Medicine 12/26/15 documented as of this encounter
--- OUTSIDE RECORDS SUMMARY | 2025-07-14 12:00 | XMS_ITS | Encounter Summary ---
Author Organization [facility] Address [address] [facility] [address] [place] [address] Phone Care Team Providers Care Seed Cleaning Machine Operator Name Role Phone Name, Reynold FAUST Primary Care Provider Encounter Details Date Type Department Care Team (Late st Contact Info) Description 10/27/2019 Ancillary Orders [facility],Outside Imaging 30 [place] [address] System, Provider Not In, [facility] [address] [address] Social History Tobacco Use Types Packs/Day Years [...] on filedocumented in this encounter Care Teams Seed Cleaning Machine Operator Relationship Specialty Start Date End Date Name, MD Reynold 230 [place] [address] PCP - General Geriatric Psychiatry 10/26/19 documented as of this encounter Additional Source Comments The information contained in this document represents components of the legal health record. It is not the complete legal health record.[facility]
--- OUTSIDE RECORDS SUMMARY | 2025-07-14 12:00 | XMS_ITS | Encounter Summary ---
Author Organization [facility] Address [address] [facility] [address] [place] [address] Phone Care Team Providers Care Psychologist Social Name Role Phone Name, Reynold FAUST Primary Care Provider [phone] Encounter Details Date Type Department Care Team (Late st Contact Info) Description 12/04/2020 Ancillary Orders [facility],Outside Imaging 30 [place], [place] [phone] System, Provider [place] In, [place] [address] Social History Tobacco Use Types Packs/Day Years [...] on filedocumented in this encounter Care Teams Psychologist Social Relationship Specialty Start Date End Date Name, MD Reynold 230 [place], [place] [phone] PCP - General Geriatric Psychiatry 10/26/19 documented as of this encounter Additional Source Comments The information contained in this document represents components of the legal health record. It is not the complete legal health record.[facility]
--- OUTSIDE RECORDS SUMMARY | 2025-07-14 12:00 | XMS_ITS | Encounter Summary ---
Author Organization [facility] Address [address] [facility] [address] [place] [address] Phone Care Team Providers Care Ela Teacher Name Role Phone Name, Reynold FAUST Primary Care Provider [phone] Encounter Details Date Type Department Care Team (Late st Contact Info) Description 12/04/2020 Ancillary Orders [facility],Outside Imaging 30 [place], [place] [phone] System, Provider Not In, [place] [address] Social History Tobacco Use Types Packs/Day Years [...] on filedocumented in this encounter Care Teams Ela Teacher Relationship Specialty Start Date End Date Name, MD Reynold 230 [place], [place] [phone] PCP - General Geriatric Psychiatry 10/26/19 documented as of this encounter Additional Source Comments The information contained in this document represents components of the legal health record. It is not the complete legal health record.[facility]
--- OUTSIDE RECORDS SUMMARY | 2025-07-14 12:00 | XMS_ITS | Encounter Summary ---
Author Organization [facility] Address [address] [facility] [address] [place] [address] Phone Care Team Providers Care Process Safety Engineer Name Role Phone Name, Reynold FAUST Primary Care Provider [phone] Encounter Details Date Type Department Care Team (Late st Contact Info) Description 12/04/2020 Ancillary Orders [facility],Outside Imaging 30 [place], [place] [phone] System, Provider [place] In, [place] [address] Social History Tobacco Use Types Packs/Day Years [...] on filedocumented in this encounter Care Teams Process Safety Engineer Relationship Specialty Start Date End Date Name, MD Reynold 230 [place], [place] [phone] PCP - General Geriatric Psychiatry 10/26/19 documented as of this encounter Additional Source Comments The information contained in this document represents components of the legal health record. It is not the complete legal health record.[facility]
--- OUTSIDE RECORDS SUMMARY | 2025-07-14 12:00 | XMS_ITS | Encounter Summary ---
Author Organization [facility] Address [address] [facility] [address] [place] [address] Phone Care Team Providers Care Data Entry Manager Name Role Phone Name, Reynold FAUST Primary Care Provider [phone] Encounter Details Date Type Department Care Team (Late st Contact Info) Description 12/04/2020 Ancillary Orders [facility],Outside Imaging 30 [place], [place] [phone] System, Provider [place] In, [place] [address] Social History Tobacco Use Types Packs/Day Years [...] on filedocumented in this encounter Care Teams Data Entry Manager Relationship Specialty Start Date End Date Name, MD Reynold [address] [place] [id number] PCP - General Geriatric Psychiatry 10/26/19 documented as of this encounter Additional Source Comments The information contained in this document represents components of the legal health record. It is not the complete legal health record.[facility]
--- OUTSIDE RECORDS SUMMARY | 2025-07-14 12:00 | XMS_ITS | Encounter Summary ---
Author Organization [facility] Address [address] [facility] [address] [place] [address] Phone Care Team Providers Care Software Application Tester Name Role Phone Name, Reynold FAUST Primary Care Provider [phone] Encounter Details Date Type Department Care Team (Late st Contact Info) Description 10/27/2019 Ancillary Orders [facility],Outside Imaging 30 [place] [address] System, Provider Not In, [facility] [address] [address] Social History Tobacco Use Types Packs/Day Years [...] filedocumented in this encounter Care Teams Software Application Tester Relationship Specialty Start Date End Date Name, MD Reynold 230 [place] [address] PCP - General Geriatric Psychiatry 10/26/19 documented as of this encounter Additional Source Comments The information contained in this document represents components of the legal health record. It is not the complete legal health record.[facility]
--- OUTSIDE RECORDS SUMMARY | 2025-07-14 12:00 | XMS_ITS | Encounter Summary ---
Author Organization [facility] Address [address] [facility] [place] [address] Phone Care Team Providers Care Nanny Caregiver Name Role Phone Name, Reynold FAUST Primary Care Provider [phone] Encounter Details Date Type Department Care Team (Late st Contact Info) Description 12/04/2020 Ancillary Orders [facility],Outside Imaging 30 [place] [address] System, Provider [place] In, [place] [address] Social History Tobacco Use Types Packs/Day Years [...] on filedocumented in this encounter Care Teams Nanny Caregiver Relationship Specialty Start Date End Date Name, MD Reynold 230 [place], [place] [phone] PCP - General Geriatric Psychiatry 10/26/19 documented as of this encounter Additional Source Comments The information contained in this document represents components of the legal health record. It is not the complete legal health record.[facility]
--- OUTSIDE RECORDS SUMMARY | 2025-07-14 12:00 | XMS_ITS | Encounter Summary ---
Author Organization [facility] Address [address] [facility] [address] [place] [address] Phone Care Team Providers Care Line Patrolman Name Role Phone Name, Reynold FAUST Primary Care Provider Encounter Details Date Type Department Care Team (Late st Contact Info) Description 10/27/2019 Ancillary Orders [facility],Outside Imaging 30 [place] [address] System, Provider Not In, [facility] [address] [address] Social History Tobacco Use Types Packs/Day Years [...] Date End Date Name, MD Reynold 230 [place] [address] PCP - General Geriatric Psychiatry 10/26/19 documented as of this encounter Additional Source Comments The information contained in this document represents components of the legal health record. It is not the complete legal health record.[facility]
--- OUTSIDE RECORDS SUMMARY | 2025-07-14 12:00 | XMS_ITS | Encounter Summary ---
Author Organization [facility] Address [address] [facility] [address] [place] [address] Phone Care Team Providers Care Supervisor Sewing Room Name Role Phone Name, Reynold FAUST Primary Care Provider Encounter Details Date Type Department Care Team (Late st Contact Info) Description 12/04/2020 Ancillary Orders [facility],Outside Imaging 30 [place], [place] [phone] System, Provider Not In, [facility] [address] [address] Social History Tobacco Use Types Packs/Day Years [...] filedocumented in this encounter Care Teams Supervisor Sewing Room Relationship Specialty Start Date End Date Name, MD Reynold 230 [place], [place] [phone] PCP - General Geriatric Psychiatry 10/26/19 documented as of this encounter Additional Source Comments The information contained in this document represents components of the legal health record. It is not the complete legal health record.[facility]
--- OUTSIDE RECORDS SUMMARY | 2025-07-14 12:00 | XMS_ITS | Encounter Summary ---
Author Organization [facility] Address [address] [facility] [address] [place] [address] Phone Care Team Providers Care Natural Gas Engineer Name Role Phone Name, Reynold FAUST Primary Care Provider [phone] Encounter Details Date Type Department Care Team (Late st Contact Info) Description 10/27/2019 Ancillary Orders [facility],Outside Imaging 30 [place] [address] System, Provider Not In, [facility] [address] [address] Social History Tobacco Use Types Packs/Day Years [...] on filedocumented in this encounter Care Teams Natural Gas Engineer Relationship Specialty Start Date End Date Name, MD Reynold 230 [place] [address] PCP - General Geriatric Psychiatry 10/26/19 documented as of this encounter Additional Source Comments The information contained in this document represents components of the legal health record. It is not the complete legal health record.[facility]
--- OUTSIDE RECORDS SUMMARY | 2025-07-14 12:01 | XMS_ITS | Encounter Summary ---
Author Organization [employer] [facility] Address [address] [facility] 7t [place] [address] Care Team Providers Care Terminal System Operator Name Role Phone Name, Reynold FAUST Primary Care Provider [phone] Encounter Details Date Type Department Care Team (Late st Contact Info) Description 11/11/2022 Orders Only [address] [address] Valeria Heredia LPN Social History Tobacco Use [...] Description 08/01/2025 9:45 AM EST Office Visit [address] [address] 08/31/2025 9:45 AM EST Office Visit [address] [address] Name, MD Reynold [address] [place] [address] documented as of this encounter Procedures Procedure Name Priority Date/Time Associated Diagnosis Comments XR CHEST 2 VIEWS Routine 11/28/2022 4:19 PM EST documented in this encounter Results * XR Chest 2 Views (11/28/2022 4:19 PM EST) Anatomical Region Laterality Modality Chest Radiographic Milla ging 11/28/2022 4:19 PM EST Narrative 11/29/2022 12:42 PM EST [address] [address] XRay Report Signed Patient: Cece Espinosa MR#: [id number] : 1965 Acct:[id number] Age/Sex: 57 / F ADM Date: 11/28/22 Loc: [facility] Attending Dr: Reynold Crowell MD Ordering Physician: Reynold Crowell MD Date of Service: 11/28/22 Procedure(s): XR chest 2V Accession Number(s): [id number] cc: Reynold Crowell MD EXAMINATION: XR CHEST [...] in OV> 11/29/22 1239 DD/ 1619 TD/TT: Robotics Specialist: DELEON Procedure Note Donotuseinterpreter, Image - 11/29/[address] [address] XRay Report Signed Patient: Cece EspinosaMR#: [id number] : 1965Acct:[id number] Age/Sex: 57 / FADM Date: 11/28/22 Loc: [facility] Attending Dr: Reynold Crowell MD Ordering Physician: Reynold Crowell MD Date of Service: 11/28/22 Procedure(s): XR chest 2V Accession Number(s): [id number] cc: NameReynold MD EXAMINATION: XR CHEST CLINICAL [...] in OV> 11/29/22 1239 DD/ 1619 TD/TT: Robotics Specialist: DELEON [facility] External Provider IMG XR PROCEDURES Final Result documented in this encounter Visit Diagnoses Not on filedocumented in this encounter Care Teams Terminal System Operator Relationship Specialty Start Date End Date Name, MD Reynold [address] [place] [address] PCP - General Family Medicine 12/26/15 documented as of this encounter
--- OUTSIDE RECORDS SUMMARY | 2025-07-14 12:01 | XMS_ITS | Encounter Summary ---
Author Organization [employer] Address [address] [facility] [address] 7t [place] [address] Care Team Providers Care Painter Drum Name Role Phone Name, Reynold FAUST Primary Care Provider Reason for Visit * Reason Comments Med Refill Encounter Details Date Type Department Care Team ([facility] st Contact Info) Description 06/11/2024 Refill [facility] 230 [place], [place] [phone] Name, MD Reynold 230 [place] [address] Essential hypertension Social History Tobacco Use Types [...] Description 08/01/2025 9:45 AM EST Office Visit [address] [address] 08/31/2025 9:45 AM EST Office Visit [address] [address] Name, MD Reynold [address] [place] [address] documented as of this encounter Visit Diagnoses Diagnosis Essential hypertension Unspecified essential hypertension documented in this encounter Additional Health Concerns Assessment Noted Time PHQ-9 Depression Total Score: 7 12/11/19 24 11:10 AM EDT documented as of this encounter Care Teams Painter Drum Relationship Specialty Start Date End Date NameReynold MD [address] [place] [address] PCP - General Family Medicine 12/26/15 documented as of this encounter
--- OUTSIDE RECORDS SUMMARY | 2025-07-14 12:01 | XMS_ITS | Encounter Summary ---
Author Organization [employer] Address [address] [facility] [address] 7t [place] [address] Care Team Providers Care Ore Charger Name Role Phone Name, Reynold FAUST Primary Care Provider Reason for Visit * Reason Onset Date Comments New Med Request 2024 Encounter Details Date Type Department Care Team ([facility] st Contact Info) Description 2024 Telephone [facility] MEDICINE 230 [place] [address] Name, MD Reynold 230 [place] [address] New Med Request Social History Tobacco Use [...] encounter Miscellaneous Notes * Telephone Encounter - Moragn Rose RN - 2024 3:30 PM EDT T/C to pt. For below message through Dropbox interpreters id - [id number], pt. Verbally greed and understood. * Telephone [...] Description 08/01/2025 9:45 AM EST Office Visit [address] [address] 08/31/2025 9:45 AM EST Office Visit [address] [address] Name, MD Reynold [address] [place] [address] documented as of this encounter Visit Diagnoses Not on filedocumented in this encounter Additional Health Concerns Assessment Noted Time PHQ-9 Depression Total Score: 7 12/11/19 24 11:10 AM EDT documented as of this encounter Care Teams Ore Charger Relationship Specialty Start Date End Date Name, MD Reynold [address] [place] [address] PCP - General Family Medicine 12/26/15 documented as of this encounter
--- OUTSIDE RECORDS SUMMARY | 2025-07-14 12:01 | XMS_ITS | Encounter Summary ---
Author Organization [facility] Address [address] [facility] [address] [place] [address] Phone Care Team Providers Care Electric Organ Assembler And Checker Name Role Phone Name, Reynold FAUST Primary Care Provider [phone] Encounter Details Date Type Department Care Team (Late st Contact Info) Description 10/27/2019 Ancillary Orders [facility],Outside Imaging 30 [place] [address] System, Provider Not In, [facility] [address] [address] Social History Tobacco Use Types Packs/Day Years [...] on filedocumented in this encounter Care Teams Electric Organ Assembler And Checker Relationship Specialty Start Date End Date Name, MD Reynold 230 [place] [address] PCP - General Geriatric Psychiatry 10/26/19 documented as of this encounter Additional Source Comments The information contained in this document represents components of the legal health record. It is not the complete legal health record.[facility]
--- OUTSIDE RECORDS SUMMARY | 2025-07-14 12:01 | XMS_ITS | Encounter Summary ---
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 TC to pt, no answer. L/M requesting she call to reschedule her POWER ELECTRONICS ENGINEER RV she cancelled. documented in this encounter Plan of Treatment Upcoming Encounters Date Type Department Care Team (Late st Contact Info) Description 08/01/2025 9:45 AM EST Office Visit [address] [address] 08/31/2025 9:45 AM EST Office Visit [address] [address] Name, MD Reynold [address] [place] [address] documented as of this encounter Visit Diagnoses Diagnosis Chronic pain syndrome documented in this encounter Care Teams Unbundler Relationship Specialty Start Date End Date Name, MD Reynold [address] [place] [address] PCP - General Family Medicine 12/26/15 documented as of this encounter
--- OUTSIDE RECORDS SUMMARY | 2025-07-14 12:01 | XMS_ITS | Encounter Summary ---
Author Organization [employer] Address [address] [facility] [address] 7t [place] [address] Care Team Providers Care Machine Candle Molder Name Role Phone Name, Reynold FAUST Primary Care Provider [phone] Reason for Visit * Reason Onset Date Comments partial adjustment made elsewhere 11/04/2024 Encounter Details Date Type Department Care Team ([facility] st Contact Info) Description 11/04/2024 Telephone [facility]ULT DENTAL 230 [place] [address] Elisabet Greer, DDS [address] [place] [address] partial adjustment made elsewhere Social History Tobacco [...] fashioned by our clinic. DR Janelle carries [facility] for insurance and we accept [employer] [facility] insurance in our facilities documented in this encounter Plan of Treatment Upcoming Encounters Date Type Department Care Team (Late st Contact Info) Description 08/01/2025 9:45 AM EST Office Visit [facility] MEDICINE [address] [place] [address] 08/31/2025 9:45 AM EST Office Visit [facility] MEDICINE [address] [place] [address] Name, MD Reynold 230 [place] [address] documented as of this encounter Visit Diagnoses Not on filedocumented in this encounter Additional Health Concerns Assessment Noted Time PHQ-9 Depression Total Score: 7 12/11/19 24 11:10 AM EDT documented as of this encounter Care Teams Machine Candle Molder Relationship Specialty Start Date End Date Name, MD Reynold 230 [place] [address] PCP - General Family Medicine 12/26/15 documented as of this encounter
--- OUTSIDE RECORDS SUMMARY | 2025-07-14 12:01 | XMS_ITS | Encounter Summary ---
Author Organization [employer] Address [address] [facility] [address] 7t [place] [address] Care Team Providers Care Casting Wheel Operator Helper Name Role Phone Name, Reynold FAUST Primary Care Provider Reason for Visit * Reason Comments Med Refill Encounter Details Date Type Department Care Team ([facility] Contact Info) Description 12/22/2022 Refill [facility] & PEDS [address] [place] [address] Name, MD Reynold 230 [place] [address] Rash Social History Tobacco Use Types Packs/Day [...] Upcoming Encounters Date Type Department Care Team ([facility] Contact Info) Description 08/01/2025 9:45 AM EST Office Visit [facility] MEDICINE [address] [place] [address] 08/31/2025 9:45 AM EST Office Visit [facility] MEDICINE 230 [place] [address] Name, MD Reynold 230 [place] [address] documented as of this encounter Visit Diagnoses Diagnosis Rash Rash and other nonspecific skin eruption documented in this encounter Care Teams Casting Wheel Operator Helper Relationship Specialty Start Date End Date Name, MD Reynold 230 [place] [address] PCP - General Family Medicine 12/26/15 documented as of this encounter
--- OUTSIDE RECORDS SUMMARY | 2025-07-14 12:01 | XMS_ITS | Clinical Summary ---
Author Organization [facility] Address [address] [place] [address] Phone Care Team Providers Care Check Examiner Name Role Phone Name, Reynold FAUST Primary Care Provider [phone] Allergies No known active allergies Medications cloNIDine [...] VACCINE (#1) 2025 COVID-19 VACCINE ( - 2024-2 6 season) 2025 RSV VACCINE (1 - 1-dose [...] Self [address] [place] [address] [facility] ONE CARE MEDICARE REPLACEMENT * Guarantor: Cece Espinosa Account Type Relation to Patient Date of Phone Billing Address Personal/Family Self [address] [place] [address] [facility] REPLACEMENT * Guarantor: Cece Espinosa Account Type Relation to Patient Date of Phone Billing Address Personal/Family Self [address] [place] [address] [facility] MED[facility] REPLACEMENT * Guarantor: Cece Espinosa Account Type Relation to Patient Date of Phone Billing Address Personal/Family Self [address] [place] [address] [facility] MEDICARE REPLACEMENT * Guarantor: Cece Espinosa Account Type Relation to Patient Date of Phone Billing Address Personal/Family Self [address] [place] [address] [facility] REPLACEMENT [facility] MEDICARE REPLACEMENT [facility] MEDICARE REPLACEMENT [facility] ONE CARE MEDICARE REPLACEMENT [facility] Care Teams Check Examiner Relationship Specialty Start Date End Date Name, MD Reynold [address] [place] [address] PCP - General Geriatric Psychiatry 10/26/19 Additional Source Comments The information contained in this document represents components of the legal health record. It is not the complete legal health record.[facility]
--- OUTSIDE RECORDS SUMMARY | 2025-07-14 12:01 | XMS_ITS | Encounter Summary ---
Author Organization [facility] Address [address] [facility] 7t [place] [address] Care Team Providers Care Cda Teacher Name Role Phone Name, Reynold FAUST Primary Care Provider [phone] Encounter Details Date Type Department Care Team (Latest Contact Info) Description 10/10/[address] [facility] CONVERSIONS Dental, Provider, DDS Social History [...] Description 08/01/2025 9:45 AM EST Office Visit [address] [address] 08/31/2025 9:[address] [facility] MEDICINE [address] [place] [address] Name, MD Reynold [address] [place] [address] documented as of this encounter Visit Diagnoses Not on filedocumented in this encounter Care Teams Cda Teacher Relationship Specialty Start Date End Date Reynold Crowell MD [address] [place] [address] PCP - General Family Medicine 12/26/15 documented as of this encounter
--- OUTSIDE RECORDS SUMMARY | 2025-07-14 12:01 | XMS_ITS | Encounter Summary ---
Author Organization [employer] Address [address] 7t [place] [address] Care Team Providers Care Aluminum Pool Installer Name Role Phone Name, Reynold FAUST Primary Care Provider [phone] Reason for Visit * Reason Comments Med Refill Encounter Details Date Type Department Care Team ([facility] st Contact Info) Description 02/28/2024 Refill [facility]INE [address] [place], [place] [phone] Name, MD Reynold 230 [place] [address] Chronic cough Social History Tobacco Use Types [...] Description 08/01/2025 9:45 AM EST Office Visit [facility] [address] [place] [address] 08/31/2025 9:45 AM EST Office Visit [address] [address] Name, MD Reynold [address] [place] [address] documented as of this encounter Visit Diagnoses Diagnosis Chronic cough Cough documented in this encounter Additional Health Concerns Assessment Noted Time PHQ-9 Depression Total Score: 7 12/11/19 24 11:10 AM EDT documented as of this encounter Care Teams Aluminum Pool Installer Relationship Specialty Start Date End Date NameReynold MD [address] [place] [address] PCP - General Family Medicine 12/26/15 documented as of this encounter
--- OUTSIDE RECORDS SUMMARY | 2025-07-14 12:01 | XMS_ITS | Encounter Summary ---
Author Organization [employer] Address [address] [facility] 7t [place] [address] Care Team Providers Care Rougher Merchant Mill Name Role Phone Name, Reynold FAUST Primary Care Provider [phone] Reason for Visit * Reason Comments Med Refill Encounter Details Date Type Department Care Team (Late st Contact Info) Description 04/06/2023 Refill [facility]INE [address] [place] [address] NameReynold MD [address] [place] [address] Chronic cough Social History Tobacco Use Types [...] Description 08/01/2025 9:45 AM EST Office Visit [facility] [address] [place] [address] 08/31/2025 9:45 AM EST Office Visit [facility] [address] [place] [address] Reynold Crowell MD [address] [place] [address] documented as of this encounter Visit Diagnoses Diagnosis Chronic cough Cough documented in this encounter Care Teams Rougher Merchant Mill Relationship Specialty Start Date End Date Name, MD Reynold 230 [place] [address] PCP - General Family Medicine 12/26/15 documented as of this encounter
--- OUTSIDE RECORDS SUMMARY | 2025-07-14 12:01 | XMS_ITS | Encounter Summary ---
Author Organization [employer] Address [address] [facility] 7t [place] [address] Care Team Providers Care Scarfer Name Role Phone Name, Reynold FAUST Primary Care Provider [phone] Encounter Details Date Type Department Care Team ([facility] st Contact Info) Description 12/15/2024 Orders Only [facility] [address] [place] [address] Provider, MD Mally Social History Tobacco Use [...] the past 12 months, has t he [employer] gas, oil or water company threatened to [...] Description 08/01/2025 9:45 AM EST Office Visit [address] [address] 08/31/2025 9:45 AM EST Office Visit [address] [address] Name, MD Reynold [address] [place] [address] documented as of this encounter Procedures Procedure [...] documented as of this encounter Care Teams Scarfer Relationship Specialty Start Date End Date Name, MD Reynold [address] [place] [address] PCP - General Family Medicine 12/26/15 documented as of this encounter
--- OUTSIDE RECORDS SUMMARY | 2025-07-14 12:01 | XMS_ITS | Encounter Summary ---
Author Organization [facility] Address [address] [facility] [address] [place] [address] Phone Care Team Providers Care Gang Pusher Name Role Phone Name, Reynold FAUST Primary Care Provider [phone] Encounter Details Date Type Department Care Team (Late st Contact Info) Description 2020 Ancillary Orders [facility],Outside Imaging [address] [place], [place] [phone] System, Provider Not In, [facility] [address] [address] Social History Tobacco Use Types Packs/Day Years [...] on filedocumented in this encounter Care Teams Gang Pusher Relationship Specialty Start Date End Date Name, MD Reynold [address] [place] [address] [phone] PCP - General Geriatric Psychiatry 10/26/19 documented as of this encounter Additional Source Comments The information contained in this document represents components of the legal health record. It is not the complete legal health record.[facility]
--- OUTSIDE RECORDS SUMMARY | 2025-07-14 12:01 | XMS_ITS | Encounter Summary ---
Author Organization [employer] Address [address] [facility] 7t [place] [address] Care Team Providers Care Buffer Copper Name Role Phone Name, Reynold FAUST Primary Care Provider Reason for Visit * Reason Comments Med Refill Encounter Details Date Type Department Care Team (Late st Contact Info) Description 04/02/2023 Refill [facility] [address] [place] [address] NameReynold MD [address] [place] [address] Chronic cough Social History Tobacco Use Types [...] [facility] [address] [place] [address] 08/31/2025 9:45 AM EST Office Visit [facility] [address] [place] [address] Reynold Crowell MD [address] [place] [address] documented as of this encounter Visit Diagnoses Diagnosis Chronic cough Cough documented in this encounter Care Teams Buffer Copper Relationship Specialty Start Date End Date Name, MD Reynold [address] [place] [address] PCP - General Family Medicine 12/26/15 documented as of this encounter
--- OUTSIDE RECORDS SUMMARY | 2025-07-14 12:01 | XMS_ITS | Encounter Summary ---
Author Organization [employer] Address [address] [address] [facility] [address] 7t [place] [address] Care Team Providers Care Sales Planning Manager Name Role Phone Name, Reynold FAUST Primary Care Provider [phone] Encounter Details Date Type Department Care Team (Late Contact Info) Description 03/30/2023 Orders Only [facility] [address] [place] [address] Sadia Silva LPN Social History Tobacco Use [...] Department Care Team (Late Contact Info) Description 08/01/2025 9:45 AM EST Office Visit [facility] [address] [place] [address] 08/31/2025 9:45 AM EST Office Visit [facility] [address] [place] [address] Name, MD Reynold [address] [place] [address] documented as of this encounter Visit Diagnoses Not on filedocumented in this encounter Care Teams Sales Planning Manager Relationship Specialty Start Date End Date Name, MD Reynold 230 [place] [address] PCP - General Family Medicine 12/26/15 documented as of this encounter
--- OUTSIDE RECORDS SUMMARY | 2025-07-14 12:01 | XMS_ITS | Encounter Summary ---
Author Organization [employer] Address [address] [facility] [address] 7t [place] [address] Care Team Providers Care Nuclear Auxiliary Operator Name Role Phone Name, Reynold FAUST Primary Care Provider [phone] Reason for Visit * Reason Comments Med Refill Encounter Details Date Type Department Care Team ([facility] st Contact Info) Description 07/10/2025 Refill [facility] MED[facility] 230 [place], [place] [phone] Name, MD Reynold 230 [place] [address] Chronic pain syndrome Social History Tobacco Use [...] Description 08/01/2025 9:45 AM EST Office Visit [address] [address] 08/31/2025 9:45 AM EST Office Visit [address] [address] Name, MD Reynold [address] [place] [address] documented as of this encounter Visit Diagnoses Diagnosis Chronic pain syndrome documented in this encounter Additional Health Concerns Assessment Noted Time PHQ-9 Depression Total Score: 9 04/17/20 25 10:41 AM EDT documented as of this encounter Care Teams Nuclear Auxiliary Operator Relationship Specialty Start Date End Date NameReynold MD [address] [place] [address] PCP - General Family Medicine 12/26/15 documented as of this encounter
--- OUTSIDE RECORDS SUMMARY | 2025-07-14 12:01 | XMS_ITS | Encounter Summary ---
Author Organization [employer] Address [address] 7t [place] [address] Care Team Providers Care Stave Planer Tender Name Role Phone Name, Reynold FAUST Primary Care Provider Encounter Details Date Type Department Care Team (Late Contact Info) Description 10/07/2023 Abstract [facility] MED[facility] [address] [place] [address] Name, MD Reynold [address] [place] [address] Social History Tobacco Use Types Packs/Day Years [...] Description 08/01/2025 9:45 AM EST Office Visit [facility] [address] [place] [address] [phone] 08/31/2025 9:45 AM EST Office Visit [facility] [address] [place] [address] [phone] NameReynold MD [address] [place] [address] documented as of this encounter Visit Diagnoses Not on filedocumented in this encounter Care Teams Stave Planer Tender Relationship Specialty Start Date End Date Name, MD Reynold [address] [place] [address] PCP - General Family Medicine 12/26/15 documented as of this encounter
--- OUTSIDE RECORDS SUMMARY | 2025-07-14 12:01 | XMS_ITS | Encounter Summary ---
Author Organization [employer] Address [address] [facility] 7t [place] [address] Care Team Providers Care Cemetery Laborer Name Role Phone Name, Reynold FAUST Primary Care Provider [phone] Reason for Visit * Reason Comments Med Refill Encounter Details Date Type Department Care Team (Late st Contact Info) Description 03/13/2023 Refill [facility] MED[facility]INE [address] [place] [address] NameReynold MD [address] [place] [address] Chronic cough Social History Tobacco Use Types [...] Description 08/01/2025 9:45 AM EST Office Visit [facility] [address] [place] [address] 08/31/2025 9:45 AM EST Office Visit [facility] [address] [place] [address] Reynold Crowell MD [address] [place] [address] documented as of this encounter Visit Diagnoses Diagnosis Chronic cough Cough documented in this encounter Care Teams Cemetery Laborer Relationship Specialty Start Date End Date Name, MD Reynold [address] [place] [address] PCP - General Family Medicine 12/26/15 documented as of this encounter
--- OUTSIDE RECORDS SUMMARY | 2025-07-14 12:01 | XMS_ITS | Encounter Summary ---
Author Organization [employer] Address [address] [facility] 7t [place] [address] Care Team Providers Care Buffing Machine Operator Semiautomatic Name Role Phone Name, Reynold FAUST Primary Care Provider [phone] Reason for Visit * Reason Comments Med Refill Encounter Details Date Type Department Care Team (Late st Contact Info) Description 03/11/2023 Refill [facility] MEDICINE [address] [place] [address] NameReynold MD [address] [place] [address] Chronic cough Social History Tobacco Use Types [...] Description 08/01/2025 9:45 AM EST Office Visit [facility] MED[facility]INE [address] [place] [address] 08/31/2025 9:45 AM EST Office Visit [facility] MED[facility]INE [address] [place] [place] [address] Reynold Crowell MD [address] [place] [address] documented as of this encounter Visit Diagnoses Diagnosis Chronic cough Cough documented in this encounter Care Teams Buffing Machine Operator Semiautomatic Relationship Specialty Start Date End Date Name, MD Reynold [address] [place] [address] PCP - General Family Medicine 12/26/15 documented as of this encounter
--- OUTSIDE RECORDS SUMMARY | 2025-07-14 12:01 | XMS_ITS | Encounter Summary ---
Author Organization [employer] Address [address] [facility] [address] 7t [place] [address] Care Team Providers Care Privacy Analyst Name Role Phone Name, Reynold FAUST Primary Care Provider [phone] Encounter Details Date Type Department Care Team (Latest Contact Info) Description 07/12/2025 Travel Social History Tobacco Use Types Packs/Day [...] Description 08/01/2025 9:45 AM EST Office Visit [facility] MED[facility]INE [address] [place] [address] 08/31/2025 9:45 AM EST Office Visit [address] [address] Name, MD Reynold [address] [place] [address] documented as of this encounter Visit Diagnoses Not on filedocumented in this encounter Additional Health Concerns Assessment Noted Time PHQ-9 Depression Total Score: 9 04/17/20 25 10:41 AM EDT documented as of this encounter Care Teams Privacy Analyst Relationship Specialty Start Date End Date Name, MD Reynold [address] [place] [address] PCP - General Family Medicine 12/26/15 documented as of this encounter
--- OUTSIDE RECORDS SUMMARY | 2025-07-14 12:01 | XMS_ITS | Encounter Summary ---
Author Organization [employer] Address [address] [facility] [address] 7t [place] [address] Care Team Providers Care Arcade Game Technician Name Role Phone Name, Reynold FAUST Primary Care Provider [phone] Reason for Visit * Reason Comments Med Refill Encounter Details Date Type Department Care Team ([facility] st Contact Info) Description 05/13/[address] [facility] MEDICINE [address] [place], [place] [phone] Name, MD Reynold [address] [place] [address] Social History Tobacco Use Types Packs/Day Years [...] Description 08/01/2025 9:45 AM EST Office Visit [address] [address] 08/31/2025 9:45 AM EST Office Visit [address] [address] Name, MD Reynold [address] [place] [address] documented as of this encounter Visit Diagnoses Not on filedocumented in this encounter Additional Health Concerns Assessment Noted Time PHQ-9 Depression Total Score: 9 04/17/20 25 10:41 AM EDT documented as of this encounter Care Teams Arcade Game Technician Relationship Specialty Start Date End Date NameReynold MD [address] [place] [address] PCP - General Family Medicine 12/26/15 documented as of this encounter
--- OUTSIDE RECORDS SUMMARY | 2025-07-14 12:01 | XMS_ITS | Encounter Summary ---
Author Organization [employer] Address [address] [facility] [address] [address] 7t [place] [address] Care Team Providers Care Parts Expediter Name Role Phone Name, Reynold FAUST Primary Care Provider Encounter Details Date Type Department Care Team (Late st Contact Info) Description 07/14/2025 Orders Only [facility] External Provider, [facility] Social History Tobacco Use Types Packs/Day Years [...] Description 08/01/2025 9:45 AM EST Office Visit [facility] MEDICINE [address] [place] [address] 08/31/2025 9:45 AM EST Office Visit [facility] MED[facility]INE [address] [place] [address] Name, MD Reynold [address] [place] [address] documented as of this encounter Procedures Procedure Name Priority Date/Time Associated Diagnosis Comments US PELVIS TRANSVAGINAL Routine 07/14/2025 10:56 AM EDT documented in this encounter Results * US Pelvis Transvaginal (07/14/2025 10:56 AM EDT) Anatomical Region Laterality Modality Pelvis Ultrasound 07/14/2025 10:5 6 AM EDT Narrative 07/14/2025 11:43 AM EDT [address] [address] Ultrasound Report Signed Patient: Cece Espinosa MR#: [id number] : 1965 Acct:[id number] Age/Sex: 60 / F ADM Date: 07/14/25 Loc: HO.US Attending Dr: Rupreto Barrera MD Ordering Physician: Ruperto Barrera MD Date of Service: 07/14/25 Procedure(s): US pelvic and transvaginal Accession Number(s): [id number] cc: Reynold Crowell MD; Ruperto Barrera MD Reason for Exam: D25.9 [...] Darren Wagoner MD 07/14/2025 11:41 AM EDT RP Dictated By: Darren Wagoner MD Signed By: <Electronically signed by Darren Wagoner MD in OV> 07/14/25 1141 DD/ 1056 TD/TT: 07/14/25 1118 Gas Attendant: Procedure Note Donotuseinterpreter, Image - 07/14/[address] [address] Ultrasound Report Signed Patient: Cece Espinosa#: [id number] : 1965Acct:[id number] Age/Sex: 60 / FADM Date: 07/14/25 Loc: HO.US Attending Dr: Ruperto Barrera MD Ordering Physician: Ruperto Barrera MD Date of Service: 07/14/25 Procedure(s): US pelvic and transvaginal Accession Number(s): [id number] cc: Reynold Crowell MD; Ruperto Barrera MD Reason for Exam: D25.9 [...] 07/14/25 1141 DD/ 1056 TD/TT: 07/14/25 1118 Gas Attendant: [facility] External Provider IMG US PROCEDURES Final Result documented in this encounter Visit Diagnoses Not on filedocumented in this encounter Additional Health Concerns Assessment Noted Time PHQ-9 Depression Total Score: 9 04/17/20 10:41 AM EDT documented as of this encounter Care Teams Parts Expediter Relationship Specialty Start Date End Date Name, MD Reynold [address] [place] [address] PCP - General Family Medicine 12/26/15 documented as of this encounter
--- OUTSIDE RECORDS SUMMARY | 2025-07-14 12:01 | XMS_ITS | Encounter Summary ---
Author Organization [employer] Address [address] [place] [address] Care Team Providers Care Reports Analysis Manager Name Role Phone Name, Reynold FAUST Primary Care Provider Encounter Details Date Type Department Care Team (Late st Contact Info) Description 10/13/2022 Orders Only [facility] [address] [place] [address] Sadia Silva LPN Social History Tobacco Use [...] Description 08/01/2025 9:45 AM EST Office Visit [facility] [address] [place] [phone] 08/31/2025 9:45 AM EST Office Visit [facility] [address] [place] [address] Name, MD Reynold [address] [place] [phone] documented as of this encounter Procedures Procedure Name Priority Date/Time Associated Diagnosis Comments CBC WITH AUTO DIFFERENTIAL Routine 11/08/2022 10:25 AM EST HEMOGLOBIN A1C Routine 11/08/2022 10:25 AM EST LIPID PANEL, STANDARD Routine 11/08/2022 10:25 AM EST COMPREHENSIVE METABOLIC PANEL Routine 11/08/2022 10:25 AM EST documented in this encounter Results * Lipid Panel, Standard (11/08/2022 10:25 AM EST) Triglycerides 142 mg/dL [facility] Comment:Desirable Triglyceri de: less than 150 mg/dLBorderline High Triglyceride 150-199 mg/dLHigh Triglyceride: 200-499 mg/dLVery High Triglyceride: greater than or equal to 5OO mg/dL Cholesterol 225 mg/dL [facility] Comment:Desirable Cholestero l: less than 200 mg/dLBorderline High Cholesterol: 200-239 mg/dLHigh Cholesterol: greater than 239 mg/dL LDL Cholesterol Calculated 131 mg/dl [facility] Comment:Desirable LDL: less than 100 mg/dLNear Optimal/Above Optimal LDL: 110- 129 mg/dLBorderline High LDL: 130-159 mg/dLHigh LDL: 160-189 mg/dLVery High LDL: greater than or equal to 190 mg/dL HDL Cholesterol 66 mg/dL [facility] Comment:Desirable HDL: great er than 40 mg/dL Note: This HDL assay may give artificially low results in patients with liver disease. 11/08/2022 10:2 5 AM EST 11/08/2022 10:25 AM EST us [facility] External Provider LAB BLO OD ORDERABLES Final Result [facility] [address] [place] [address] [phone] * (ABNORMAL) Comprehensive Metabolic Panel (11/08/2022 10:25 AM EST) Sodium 143 135 - 145 mmol/L [facility] Potassium 4.1 3.3 - 5.1 mmol/L [facility] Chloride 106 96 - 108 mmol/L [facility] Carbon Dioxide 27 22 - 29 mmol/L [facility] Anion Gap 14 12 - 20 [facility] Urea Nitrogen (BUN) 23(H) 9 - 16 mg/dL [facility] Creatinine, Serum 0.81 0.5 - 1.4 mg/dL [facility] Estimated Glomerular Filt Rate >60 [facility] Comment:NOTE: For -Am erican individuals, multiply the result by 1.210.Chronic Kidney Disease: Estimated GFR < 60 mL/min/1.03g0Tdbzqb Kidney Disease: Estimated GFR < 15 mL/min/1.73m2 Glucose 107 60 - 115 mg/dL [facility] Calcium 9.5 8.4 - 10.2 mg/dL [facility] Bilirubin, Total 0.5 0.0 - 1.0 mg/dL [facility] Aspartate Amino Transferase 24 5 - 31 U/L [facility] Alanine Aminotransferase 27 0 - 31 U/L [facility] Total Protein 7.5 6.5 - 8.0 g/dL [facility] Albumin Level 4.2 3.5 - 5.0 g/dL [facility] Alkaline Phosphatase 79 39 - 117 U/L [facility] 11/08/2022 10:2 5 AM EST 11/08/2022 10:25 AM EST [facility] External Provider LAB BLO OD ORDERABLES Final Result [facility] [address] [place] [phone] * Hemoglobin A1c (11/08/2022 10:25 AM EST) Hemoglobin A1c 6.2 % [facility] Comment:Hemoglobin A1C Refer ence Range Adults: 4.8 - 6.0 % Non diabetic: < 6.0 % Goal: < 7.0 %Additional Action Suggested: > 8.0 %Note: Hemoglobin A1c results are invalid for patients with abnormal amounts of HbF. Blood transfusions may impact the HbA1c concentration in the patient sample. Estimated Average Glucose 131 mg/dL [facility] Comment:eAG = Estimated ave rage glucose which is %A1C expressed asaverage glucose, using the formula of the [id number] Glucose study (ADAG), Diabetes Care, Vol.31,#8,Apr. 2007 11/08/2022 10:2 5 AM EST 11/08/2022 10:25 AM EST us [facility] External Provider LAB BLO OD ORDERABLES Final Result [facility] [address] [place] [address] [phone] * (ABNORMAL) CBC auto differential (11/08/2022 10:25 AM EST) White Blood Count 3.9(L) 4.8 - 10.8 X10*3/uL [facility] Red Blood Count 4.47 4.20 - 5.50 X10*6/uL [facility] Hemoglobin 12.2 12.0 - 16.0 g/dl [facility] Hematocrit 38.1 37.0 - 47.0 % [facility] Mean Corpuscular Volume 85.2 80.0 - 98.0 fL [facility] Mean Corpuscular Hemoglobin 27.3 27.0 - 33.0 pg [facility] Mean Corpuscular HGB Conc 32.0 31.0 - 35.0 g/dl [facility] Red Cell Distribution Width 14.4 11.0 - 16.0 % [facility] Platelet Count 178 160 - 400 X10*3/uL [facility] Mean Platelet Volume 11.4 9.4 - 12.3 fL [facility] Neutrophils Percent Auto 65.0 45 - 73 % [facility] Imm Gran Pct Auto 0.3 0.0 - 0.4 % [facility] Lymphocytes Percent Auto 22.4 20 - 40 % [facility] Monocytes Percent Auto 8.7 2 - 11 % [facility] Eosinophils Percent Auto 2.8 0 - 4 % [facility] Basophils Percent Auto 0.8 0 - 2 % [facility] NRBC Pct Auto 0.0 0.0 - 0.2 /100WBC [facility] Neutrophils Absolute Auto 2.6 2.0 - 8.3 x10*3/uL [facility] Imm Gran Abs Auto 0.01 0.00 - 0.03 X10*3/uL [facility] Lymphocytes Absolute Auto 0.9(L) 1.2 - 4.9 X10*3/uL [facility] Monocytes Absolute Auto 0.3 0.1 - 1.2 X10*3/uL [facility] Eosinophils Absolute Auto 0.1 0.0 - 0.4 X10*3/uL [facility] Basophils Absolute Auto 0.0 0.0 - 0.2 X10*3/uL [facility] NRBC Abs Auto 0.000 0.0 - 0.012 X10*3/uL [facility] 11/08/2022 10:2 5 AM EST 11/08/2022 10:25 AM EST us [facility] External Provider LAB BLO OD ORDERABLES Final Result Performing Organization Address City/State/[facility] Co de Phone Number [facility] [address] [place] [address] [phone] documented in this encounter Visit Diagnoses Not on filedocumented in this encounter Care Teams Reports Analysis Manager Relationship Specialty Start Date End Date Name, MD Reynold [address] [place] [phone] PCP - General Family Medicine 12/26/15 documented as of this encounter
== END 2025-07-14 10:28 | disposition home or self-care (01) ==
LOC: HO.US 10:27
PROVIDERS: PCP Internal Medicine Geriatric Medicine; Visit Provider Obstetrics & Gynecology
DX: D25.9 Leiomyoma of uterus, unspecified (principal)
CPT/HCPCS: 76830; 76856

== ENCOUNTER → 2025-07-14 10:33 | Outpatient (BNV) | payer OTHER, SELFPAY | PROVIDERS: PCP Internal Medicine Geriatric Medicine; Visit Provider Radiology Diagnostic Radiology | DX: D25.0 Submucous leiomyoma of uterus (principal) | CPT/HCPCS: 76830; 76856 ==

== ENCOUNTER 2025-07-20 08:13 | Outpatient (AMB) | payer OTHER, SELFPAY ==
--- NOTE | 2025-07-20 08:14 | A.OFFVIS_ITS ---
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 Myometrium has a normal echotexture. There is an anterior fibroid measuring 10 x 9 x 9 mm. Endometrium: The endometrial stripe measures 3 mm in thickness. There is a 1.4 x 0.7 x 1.1 cm mass in the region of the cervix which could represent a polyp. Right ovary: The right ovary is not identified. Left ovary: The left ovary is not identified. Pelvic fluid: none. 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 Surgical History History of eye surgery History of breast surgery (~11/11/19) History of esophagogastroduodenoscopy (EGD) H/O tubal ligation History of lumpectomy of both breasts (~10/03/19) Family History Mother HTN (hypertension) Father Diabetes Daughter Fibromyoma Maternal Aunt Cervical cancer Social History Household Members: None Housing: Apartment Are you a primary adult live in caregiver to a significant other at home: No Do you presently have visiting nurse or other home services: Yes ([facility]) Alcohol intake: never Patient Tobacco Use Status: Former Tobacco user service: No Current occupational status: unemployed Female Reproductive History Menstrual Age of Menarche: 10 Date of last menstrual period: 07/19/20 Total pregnancies: 2 Full term: 2 Review of Systems Card Reports as per HPI and Reports no additional complaints Resp Reports as per HPI and Reports no additional complaints GI Reports as per HPI and Reports no additional complaints Reports as per HPI Physical Exam Const General: cooperative, healthy appearing and comfortable Resp Effort & Inspection: normal respiratory effort Auscultation: clear to auscultation bilaterally Percussion: percussion normal Cardio Palpation: normal PMI Rate: regular rate Rhythm: regular rhythm Heart sounds: no murmurs and no rubs Peripheral pulses: Peripheral pulses 2+ throughout GI Inspection: Yes normal to inspection Palpation (GI): Soft to palpation, nontender, no guarding, not rigid and No hepatosplenomegaly present Percussion: Yes normal to percussion Auscultation: normal bowel sounds Rectal Exam - Female: deferred Assessment & Plan Assessment & Plan (1) Endocervical polyp: Code(s): N84.1 - Polyp of cervix uteri Category: Medical Plan: Discussed with the patient the finding on ultrasound showing endocervical polyp, recommended hysteroscopic polypectomy. Discussed with the patient the procedure , all benefits and risks including but not limited to inability to complete the procedure , insufficient endometrial tissue for a complete evaluation of the endometrial cavity , bleeding, infection, possible need for blood transfusion with all its risk ( HIV,syphilis, Hepatitis, anaphylaxis shock, others..), injury to bladder, rectum, possible need for laparoscopy/laparotomy or hysterectomy. The patient verbalized understanding and signed the consent. Instructions given the patient to stay NPO after midnight the day prior to the procedure and to take only the specific medication (s) discussed the morning of the surgical procedure and to schedule a 2 week postoperative appointment (2) Uterine myoma: Code(s): D25.9 - Leiomyoma of uterus, unspecified Category: Medical Plan: Discussed with the patient the findings on pelvic ultrasound & the risk of myosarcoma; in addition reviewed with the patient that malignancy and pre malignancy cannot be ruled out without hysterectomy for pathological evaluation ; furthermore, explained to the patient the limitation of pelvic ultrasound and endometrial biopsy in the setting. Discussed with the patient the options of treatment including expectant management versus hysterectomy; the pros and cons, risks benefits of each approach were discussed with the patient including the fact that in cases of myosarcoma, surgical treatment can lead to early diagnosis and positively affects the prognosis; after further discussion, the patient decided to proceed with expectant management. Will repeat pelvic ultrasound periodically. Instruc tions given to patient to call in case any of the following occurs: pressure symptoms, abnormal uterine bleeding, pelvic pain; and to schedule a 12 months pelvic ultrasound (order placed) and a follow-up appointment . All questions answered, the patient verbalized understanding and agreed with the plan . Orders: Orders US pelvic and transvaginal 12 Months D25.9 - Leiomyoma of uterus, unspecified Coding Level of Care Code Est Pt Level 3 (92800) Diagnoses Endocervical polyp N84.1 Uterine myoma D25.9
== END 2025-07-20 10:01 | disposition home or self-care (01) ==
LOC: HO.HWS 08:13
PROVIDERS: PCP Internal Medicine Geriatric Medicine; Visit Provider Obstetrics & Gynecology
DX: N84.1 Polyp of cervix uteri (principal); D25.9 Leiomyoma of uterus, unspecified
CPT/HCPCS: 99213

== ENCOUNTER → 2025-07-20 08:13 | Outpatient (BNVA) | payer OTHER, SELFPAY | PROVIDERS: PCP Internal Medicine Geriatric Medicine; Visit Provider Obstetrics & Gynecology | DX: N84.1 Polyp of cervix uteri (principal); D25.9 Leiomyoma of uterus, unspecified | CPT/HCPCS: 99212 ==

== ENCOUNTER 2025-07-31 09:42 | Outpatient (AMB) | payer OTHER, SELFPAY ==
--- NOTE | 2025-07-31 09:56 | MHC.OFFVIS ---
Vital Signs 07/31/25 10:01 Height 4 ft 11 in Weight 144 lb BMI 29.1 BP 184/88 H Blood Pressure Location Lt brachial Position Sitting Pulse 86 Pulse Oximetry (%) 96 Oxygen Delivery Method Room Air Intake Visit Reasons: Post Op r/s 02/27 Intake Note: Patient follow up for dysphagia. Patient cc: between diarrhea and constipation with vomit, acid reflux on and off, abdominal pain with upper abdominal bloating. swallowing difficulties when she is vomiting. Insulation Applicator Required: Yes Accompanied by: Self / Same As Patient Allergies folic acid Adverse Reaction (Unknown, Verified 07/20/25 08:16) Rash on neck HPI HPI Post Op r/s 02/27: Details: 60 yr old f with hx of breast cancer and xrt being seen for f/u RECAP: She had EGD for dysphagia 03/2022 she had balloon dilation to 20 mm at [facility] and LES with small tear noted, with esophagitis and gastritis path: inflammation at [facility] consistent with reflux changes H pylori neg 2018 (had been pos before and treated) 2021-- fatty liver, no GB pathology GES: 13% at 4 hrs EGD: 11/19/23--dilation 20 mm, small tear, schatzki ring I gave her low dose TCA due to ongoing sx and poor sleep she had EPEC 05/14 and I gave her cipro due to prolonged sx EGD: 09/13: dilation pylorus and esophagus small hiatal hernia CTe: 2024- diverticulosis INTERIM: she does have bloating variable bowel habit no dysohagia she can have epigastric pain with food she takes tramadol twice a week --for back pain, arthritis she is taking dexilant and pepcid EXAM: GENERAL: The patient is well developed and nontoxic. VITAL SIGNS:see workflow HEENT: Nonicteric sclerae, PERRLA, EOMI. Oropharynx clear. Moist mucous membranes. Conjunctivae appear well perfused. No thyroid mass. CHEST: Chest wall is nontender. HEART: Regular rate and rhythm without murmurs. LUNGS: Clear to auscultation bilaterally. ABDOMEN: Soft, positive bowel sounds, tender epigastrium/ruq, no organomegaly.no flank tenderness SKIN: No rash, no excessive bruising, petechiae, or purpura. NEUROLOGIC: Cranial nerves II-XII intact without motor/sensory deficit. A/P: 1/ dysphagia --improved 2/ post prandial pain, ? 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 Surgical History History of eye surgery History of breast surgery (~11/11/19) History of esophagogastroduodenoscopy (EGD) H/O tubal ligation History of lumpectomy of both breasts (~10/03/19) Family History Mother HTN (hypertension) Father Diabetes Daughter Fibromyoma Maternal Aunt Cervical cancer Social History Household Members: None Housing: Apartment Are you a primary career development manager to a significant other at home: No Do you presently have visiting nurse or other home services: Yes ([facility]) Alcohol intake: never Patient Tobacco Use Status: Former Tobacco user service: No Current occupational status: unemployed Female Reproductive History Menstrual Age of Menarche: 10 Physical Exam Vital Signs: Last Vital Signs Pulse 86 07/31/25 10:01 BP 184/88 H 07/31/25 10:01 Pulse Ox 96 07/31/25 10:01 Oxygen Delivery Method Room Air 07/31/25 10:01 BMI result Body Mass Index 29.1 Assessment & Plan Assessment & Plan (1) Epigastric pain determined by examination: Code(s): R10.13 - Epigastric pain Category: Medical Plan: as above Orders: Orders US SMA Today R10.13 - Epigastric pain US abdomen complete Today R10.13 - Epigastric pain Medications: New rifaximin 550 mg PO TID 42 tabs 0RF 2 weeks Coding Level of Care Code Est Pt Level 4 (97741) Diagnoses Epigastric pain determined by examination R10.13
[2025-07-31 10:01] VITALS: BP 184/88; PULSE 86; O2SAT 96; BMI 29.1
--- OUTSIDE RECORDS SUMMARY | 2025-07-31 11:06 | XMS_ITS | Encounter Summary ---
Author Organization [facility] Address [address] [facility] [address] [place] [address] Phone Care Team Providers Care Nurse Monitoring Name Role Phone Name, Reynold FAUST Primary Care Provider [phone] Encounter Details Date Type Department Care Team (Late st Contact Info) Description 12/04/2020 Ancillary Orders [facility],Outside Imaging 30 [place], [place] [phone] System, Provider Not In, [facility] [address] [address] Social History Tobacco Use Types Packs/Day Years [...] on filedocumented in this encounter Care Teams Nurse Monitoring Relationship Specialty Start Date End Date Name, MD [place] [address], [place] [phone] PCP - General Geriatric Psychiatry 10/26/19 documented as of this encounter Additional Source Comments The information contained in this document represents components of the legal health record. It is not the complete legal health record.[facility]
--- OUTSIDE RECORDS SUMMARY | 2025-07-31 11:06 | XMS_ITS | Encounter Summary ---
Author Organization [facility] Address [address] [facility] [address] [place] [address] Phone Care Team Providers Care Activities Specialist Name Role Phone Name, Reynold FAUST Primary Care Provider [phone] Encounter Details Date Type Department Care Team (Late st Contact Info) Description 12/04/2020 Ancillary Orders [facility],Outside Imaging 30 [place] [address] System, Provider [place] In, [place] [address] Social History Tobacco Use Types Packs/Day Years [...] on filedocumented in this encounter Care Teams Activities Specialist Relationship Specialty Start Date End Date Name, MD [place]old [address] [place], [place] [phone] PCP - General Geriatric Psychiatry 10/26/19 documented as of this encounter Additional Source Comments The information contained in this document represents components of the legal health record. It is not the complete legal health record.[facility]
--- OUTSIDE RECORDS SUMMARY | 2025-07-31 11:06 | XMS_ITS | Encounter Summary ---
Author Organization [facility] Address [address] [facility] [address] [place] [address] Phone Care Team Providers Care Seat Joiner Chainstitch Name Role Phone Name, Reynold FAUST Primary Care Provider [phone] Encounter Details Date Type Department Care Team (Late st Contact Info) Description 10/27/2019 Ancillary Orders [facility],Outside Imaging 30 [place] [address] System, Provider Not In, [facility] [address] [address] Social History Tobacco Use Types Packs/Day Years [...] on filedocumented in this encounter Care Teams Seat Joiner Chainstitch Relationship Specialty Start Date End Date Name, MD [place]old [address] [place] [address] PCP - General Geriatric Psychiatry 10/26/19 documented as of this encounter Additional Source Comments The information contained in this document represents components of the legal health record. It is not the complete legal health record.[facility]
--- OUTSIDE RECORDS SUMMARY | 2025-07-31 11:06 | XMS_ITS | Encounter Summary ---
Author Organization [facility] Address 399 [facility] [address] [place] [address] Phone Care Team Providers Care Privacy Specialist Name Role Phone Name, Reynold FAUST Primary Care Provider [phone] Encounter Details Date Type Department Care Team (Late st Contact Info) Description 10/27/2019 Ancillary Orders [facility],Outside Imaging 30 [place] [address] System, Provider Not In, PhD [facility] [address] [address] Social History Tobacco Use Types Packs/Day Years [...] on filedocumented in this encounter Care Teams Privacy Specialist Relationship Specialty Start Date End Date Name, MD [place]old 230 [place] [address] PCP - General Geriatric Psychiatry 10/26/19 documented as of this encounter Additional Source Comments The information contained in this document represents components of the legal health record. It is not the complete legal health record.[facility]
--- OUTSIDE RECORDS SUMMARY | 2025-07-31 11:06 | XMS_ITS | Encounter Summary ---
Author Organization [facility] Address [address] [facility] [address] [place] [address] Phone Care Team Providers Care Hanger Name Role Phone Name, Reynold FAUST Primary Care Provider [phone] Encounter Details Date Type Department Care Team (Late st Contact Info) Description 10/27/2019 Ancillary Orders [facility],Outside Imaging 30 [place] [address] System, Provider Not In, [facility] [address] [address] Social History Tobacco Use Types Packs/Day Years [...] on filedocumented in this encounter Care Teams Hanger Relationship Specialty Start Date End Date Name, MD [place]old [address] [place] [address] PCP - General Geriatric Psychiatry 10/26/19 documented as of this encounter Additional Source Comments The information contained in this document represents components of the legal health record. It is not the complete legal health record.[facility]
--- OUTSIDE RECORDS SUMMARY | 2025-07-31 11:06 | XMS_ITS | Encounter Summary ---
Author Organization [facility] Address [address] [facility] [address] [place] [address] Phone Care Team Providers Care Derrick Car Operator Name Role Phone Name, Reynold FAUST Primary Care Provider [phone] Encounter Details Date Type Department Care Team (Late st Contact Info) Description 12/04/2020 Ancillary Orders [facility],Outside Imaging 30 [place], [place] [phone] System, Provider Not In, PhD [facility] [address] [address] Social History Tobacco Use Types Packs/Day Years [...] on filedocumented in this encounter Care Teams Derrick Car Operator Relationship Specialty Start Date End Date Name, MD Reynold 230 [place], [place] [phone] PCP - General Geriatric Psychiatry 10/26/19 documented as of this encounter Additional Source Comments The information contained in this document represents components of the legal health record. It is not the complete legal health record.[facility]
--- OUTSIDE RECORDS SUMMARY | 2025-07-31 11:06 | XMS_ITS | Encounter Summary ---
Author Organization [facility] Address [address] [facility] [address] [place] [address] Phone Care Team Providers Care Keyboard Action Assembler Name Role Phone Name, Reynold FAUST Primary Care Provider [phone] Encounter Details Date Type Department Care Team (Late st Contact Info) Description 12/04/2020 Ancillary Orders [facility],Outside Imaging 30 [place], [place] [phone] System, Provider Not In, [facility] [address] [address] Social History Tobacco Use Types Packs/Day Years [...] on filedocumented in this encounter Care Teams Keyboard Action Assembler Relationship Specialty Start Date End Date Name, MD Reynold [address] [place], [place] [phone] PCP - General Geriatric Psychiatry 10/26/19 documented as of this encounter Additional Source Comments The information contained in this document represents components of the legal health record. It is not the complete legal health record.[facility]
--- OUTSIDE RECORDS SUMMARY | 2025-07-31 11:06 | XMS_ITS | Encounter Summary ---
Author Organization [facility] Address [address] [facility] [address] [place] [address] Phone Care Team Providers Care Ordnance Handler Name Role Phone Name, Reynold FAUST Primary Care Provider [phone] Encounter Details Date Type Department Care Team (Late st Contact Info) Description 10/27/2019 Ancillary Orders [facility],Outside Imaging 30 [place] [address] System, Provider Not In, [facility] [address] [address] Social History Tobacco Use Types Packs/Day Years [...] on filedocumented in this encounter Care Teams Ordnance Handler Relationship Specialty Start Date End Date Name, MD [place]old [address] [place] [address] PCP - General Geriatric Psychiatry 10/26/19 documented as of this encounter Additional Source Comments The information contained in this document represents components of the legal health record. It is not the complete legal health record.[facility]
--- OUTSIDE RECORDS SUMMARY | 2025-07-31 11:06 | XMS_ITS | Encounter Summary ---
Author Organization [facility] Address [address] [facility] [address] [place] [address] Phone Care Team Providers Care Hydrometeorology Teacher Name Role Phone Name, Reynold FAUST Primary Care Provider [phone] Reason for Visit * Reason Comments Medication Refill Encounter Details Date Type Department Care Team (Late st Contact Info) Description 04/26/2020 Refill [facility] Rad Onc 30 [place] [address] Izabel Moran MD [address] [place] [phone] [email or web address] Medication Refill Social History Tobacco Use [...] on filedocumented in this encounter Care Teams Hydrometeorology Teacher Relationship Specialty Start Date End Date Name, MD [place]old [address] [place] [address] PCP - General Geriatric Psychiatry 10/26/19 documented as of this encounter Additional Source Comments The information contained in this document represents components of the legal health record. It is not the complete legal health record.[facility]
--- OUTSIDE RECORDS SUMMARY | 2025-07-31 11:06 | XMS_ITS | Encounter Summary ---
Author Organization [facility] Address [address] [facility] [address] [place] [address] Phone Care Team Providers Care Linux Unix System Administrator Name Role Phone Name, Reynold FAUST Primary Care Provider [phone] Encounter Details Date Type Department Care Team (Late st Contact Info) Description 12/04/2020 Ancillary Orders [facility],Outside Imaging 30 [place], [place] [phone] System, Provider [place] In, [place] [address] Social History Tobacco Use Types Packs/Day Years [...] on filedocumented in this encounter Care Teams Linux Unix System Administrator Relationship Specialty Start Date End Date Name, MD Reynold 230 [place], [place] [phone] PCP - General Geriatric Psychiatry 10/26/19 documented as of this encounter Additional Source Comments The information contained in this document represents components of the legal health record. It is not the complete legal health record.[facility]
--- OUTSIDE RECORDS SUMMARY | 2025-07-31 11:06 | XMS_ITS | Encounter Summary ---
Author Organization [facility] Address [address] [facility] [address] [place] [address] Phone Care Team Providers Care Unix Engineer Name Role Phone Name, Reynold FAUST Primary Care Provider [phone] Encounter Details Date Type Department Care Team (Late st Contact Info) Description 10/27/2019 Ancillary Orders [facility],Outside Imaging [address] [place] [address] System, Provider Not In, [facility] [address] [address] Social History Tobacco Use Types Packs/Day Years [...] on filedocumented in this encounter Care Teams Unix Engineer Relationship Specialty Start Date End Date Name, MD Reynold [address] [place] [address] PCP - General Geriatric Psychiatry 10/26/19 documented as of this encounter Additional Source Comments The information contained in this document represents components of the legal health record. It is not the complete legal health record.[facility]
--- OUTSIDE RECORDS SUMMARY | 2025-07-31 11:06 | XMS_ITS | Encounter Summary ---
Author Organization [facility] Address [address] [facility] [address] [place] [address] Phone Care Team Providers Care Supervisor [employer] Nut Farm[employer] Name Role Phone Name, Reynold FAUST Primary Care Provider [phone] Encounter Details Date Type Department Care Team (Late st Contact Info) Description 12/04/2020 Ancillary Orders [facility],Outside Imaging [address] [place], [place] [phone] System, Provider [place] In, [place] [address] Social History Tobacco Use Types Packs/Day Years [...] filedocumented in this encounter Care Teams Supervisor [employer] Relationship Specialty Start Date End Date Name, MD Reynold [address] [place] [address] [id number] PCP - General Geriatric Psychiatry 10/26/19 documented as of this encounter Additional Source Comments The information contained in this document represents components of the legal health record. It is not the complete legal health record.[facility]
--- OUTSIDE RECORDS SUMMARY | 2025-07-31 11:06 | XMS_ITS | Encounter Summary ---
Author Organization [facility] Address [address] [facility] [address] [place] [address] Phone Care Team Providers Care Dipper And Drier Name Role Phone Name, Reynold FAUST Primary Care Provider [phone] Encounter Details Date Type Department Care Team (Late st Contact Info) Description 12/04/2020 Ancillary Orders [facility],Outside Imaging 30 [place], [place] [phone] System, Provider Not In, [facility] [address] [address] Social History Tobacco Use Types Packs/Day Years [...] on filedocumented in this encounter Care Teams Dipper And Drier Relationship Specialty Start Date End Date Name, MD Reynodl [address] [place], [place] [phone] PCP - General Geriatric Psychiatry 10/26/19 documented as of this encounter Additional Source Comments The information contained in this document represents components of the legal health record. It is not the complete legal health record.[facility]
--- OUTSIDE RECORDS SUMMARY | 2025-07-31 11:06 | XMS_ITS | Encounter Summary ---
Author Organization [employer] Address [address] [facility] [address] 7t [place] [address] Care Team Providers Care Scale Operator Name Role Phone Name, Reynold FAUST Primary Care Provider [phone] Reason for Visit * Reason Onset Date Comments Nurse Triage 08/16/2024 Encounter Details Date Type Department Care Team ([facility] st Contact Info) Description 08/16/2024 Telephone [facility] MEDICINE [address] [place] [address] Name, MD Reynold [address] [place] [address] Nurse Triage Social History Tobacco Use Types [...] transportation but, will call to come to [facility] for Thursday evening. Pt agrees with [...] Description 08/01/2025 9:45 AM EST Office Visit [address] [address] 08/31/2025 9:45 AM EST Office Visit [address] [address] NameReynold MD [address] [place] [address] documented as of this encounter Visit Diagnoses Not on filedocumented in this encounter Additional Health Concerns Assessment Noted Time PHQ-9 Depression Total Score: 7 12/11/19 24 11:10 AM EDT documented as of this encounter Care Teams Scale Operator Relationship Specialty Start Date End Date Reynold Crowell MD [address] [place] [address] PCP - General Family Medicine 12/26/15 documented as of this encounter
--- OUTSIDE RECORDS SUMMARY | 2025-07-31 11:07 | XMS_ITS | Encounter Summary ---
Author Organization [facility] Address [address] [facility] [address] [place] [address] Phone Care Team Providers Care Meat Puller Name Role Phone Name, Reynold FAUST Primary Care Provider [phone] Encounter Details Date Type Department Care Team (Late st Contact Info) Description 10/27/2019 Ancillary Orders [facility],Outside Imaging 30 [place] [address] System, Provider Not In, [facility] [address] [address] Social History Tobacco Use Types Packs/Day Years [...] on filedocumented in this encounter Care Teams Meat Puller Relationship Specialty Start Date End Date Name, MD Reynold [address] [place] [address] PCP - General Geriatric Psychiatry 10/26/19 documented as of this encounter Additional Source Comments The information contained in this document represents components of the legal health record. It is not the complete legal health record.[facility]
--- OUTSIDE RECORDS SUMMARY | 2025-07-31 11:07 | XMS_ITS | Encounter Summary ---
Author Organization [employer] Address [address] [facility] [address] 7t [place] [address] Care Team Providers Care Environmental Services Floor Tech Name Role Phone Name, Reynold FAUST Primary Care Provider [phone] Reason for Visit * Reason Comments Med Refill Encounter Details Date Type Department Care Team ([facility] Contact Info) Description 12/22/2022 Refill [facility] CHC MED & PEDS [address] [place] [address] Name, MD Reynold [address] [place] [address] Rash Social History Tobacco Use Types Packs/Day [...] Upcoming Encounters Date Type Department Care Team ([facility] Contact Info) Description 08/01/2025 9:45 AM EST Office Visit [facility] MEDICINE [address] [place] [address] 08/31/2025 9:45 AM EST Office Visit [facility] MEDICINE [address] [place] [address] Name, MD Reynold [address] [place] [address] documented as of this encounter Visit Diagnoses Diagnosis Rash Rash and other nonspecific skin eruption documented in this encounter Care Teams Environmental Services Floor Tech Relationship Specialty Start Date End Date Name, MD Reynold [address] [place] [address] PCP - General Family Medicine 12/26/15 documented as of this encounter
--- OUTSIDE RECORDS SUMMARY | 2025-07-31 11:07 | XMS_ITS | Encounter Summary ---
Author Organization [employer] Address [address] [facility] 7t [place] [address] Care Team Providers Care Warehouse Shipping Clerk Name Role Phone Name, Reynold FAUST Primary Care Provider [phone] Encounter Details Date Type Department Care Team ([facility] st Contact Info) Description 12/15/2024 Orders Only [facility] [address] [place] [address] Provider, MD Mally Social History Tobacco Use [...] the past 12 months, has t he [employer], gas, oil or water company threatened to [...] Description 08/01/2025 9:45 AM EST Office Visit [address] [address] 08/31/2025 9:45 AM EST Office Visit [address] [address] Name, MD Reynold [address] [place] [address] documented as of this encounter Procedures Procedure [...] documented as of this encounter Care Teams Warehouse Shipping Clerk Relationship Specialty Start Date End Date Name, MD Reynold [address] [place] [address] PCP - General Family Medicine 12/26/15 documented as of this encounter
--- OUTSIDE RECORDS SUMMARY | 2025-07-31 11:07 | XMS_ITS | Encounter Summary ---
Author Organization [employer] Address [address] [facility] 7t [place] [address] Care Team Providers Care Line Installer Trolley Name Role Phone Name, Reynold FAUST Primary Care Provider [phone] Reason for Visit * Reason Comments Med Refill Encounter Details Date Type Department Care Team (Late st Contact Info) Description 04/02/2023 Refill [facility] MEDICINE [address] [place] [address] NameReynold MD [address] [place] [address] Chronic cough Social History Tobacco Use Types [...] Description 08/01/2025 9:45 AM EST Office Visit [facility] MEDICINE [address] [place] [address] 08/31/2025 9:45 AM EST Office Visit [facility] MEDICINE [address] [place] [address] Reynold Crowell MD [address] [place] [address] documented as of this encounter Visit Diagnoses Diagnosis Chronic cough Cough documented in this encounter Care Teams Line Installer Trolley Relationship Specialty Start Date End Date Name, MD Reynold [address] [place] [address] PCP - General Family Medicine 12/26/15 documented as of this encounter
--- OUTSIDE RECORDS SUMMARY | 2025-07-31 11:07 | XMS_ITS | Encounter Summary ---
Author Organization [employer] Address [address] [facility] [address] 7t [place] [address] Care Team Providers Care Silverware Supervisor Name Role Phone Name, Reynold FAUST Primary Care Provider [phone] Encounter Details Date Type Department Care Team (Late Contact Info) Description 03/30/2023 Orders Only [facility] CHC MED & PEDS [address] [place] [address] Sadia Silva LPN Social History Tobacco Use [...] Description 08/01/2025 9:45 AM EST Office Visit [facility] MEDICINE [address] [place] [address] 08/31/2025 9:45 AM EST Office Visit [facility] MEDICINE [address] [place] [address] Name, MD Reynold [address] [place] [address] documented as of this encounter Visit Diagnoses Not on filedocumented in this encounter Care Teams Silverware Supervisor Relationship Specialty Start Date End Date Name, MD Reynold [address] [place] [address] PCP - General Family Medicine 12/26/15 documented as of this encounter
--- OUTSIDE RECORDS SUMMARY | 2025-07-31 11:07 | XMS_ITS | Encounter Summary ---
Author Organization [employer] Address [address] [facility] [address] 7[address] [place] [address] Care Team Providers Care Field Cane Scale Clerk Name Role Phone Name, Reynold FAUST Primary Care Provider [phone] Reason for Visit * Reason Comments Med Refill Encounter Details Date Type Department Care Team ([facility] st Contact Info) Description 02/28/2024 Refill [facility] MEDICINE [address] [place], [place] [phone] Name, MD Reynold [address] [place] [address] Chronic cough Social History Tobacco Use Types [...] Description 08/01/2025 9:45 AM EST Office Visit [facility] MEDICINE [address] [place] [address] 08/31/2025 9:45 AM EST Office Visit [address] [address] Name, MD Reynold [address] [place] [address] documented as of this encounter Visit Diagnoses Diagnosis Chronic cough Cough documented in this encounter Additional Health Concerns Assessment Noted Time PHQ-9 Depression Total Score: 7 12/11/19 24 11:10 AM EDT documented as of this encounter Care Teams Field Cane Scale Clerk Relationship Specialty Start Date End Date NameReynold MD [address] [place] [address] PCP - General Family Medicine 12/26/15 documented as of this encounter
--- OUTSIDE RECORDS SUMMARY | 2025-07-31 11:07 | XMS_ITS | Encounter Summary ---
Author Organization [employer] Address [address] [facility] [address] 7t [place] [address] Care Team Providers Care Airplane Tube Builder Name Role Phone Name, Reynold FAUST Primary Care Provider [phone] Reason for Visit * Reason Onset Date Comments partial adjustment made elsewhere 11/04/2024 Encounter Details Date Type Department Care Team ([facility] st Contact Info) Description 11/04/2024 Telephone [facility] [address] [place] [address] Elisabet Greer, DDS [address] [place] [address] partial adjustment made elsewhere Social History Tobacco [...] fashioned by our clinic. DR Janelle carries [facility] [employer] for insurance and [facility] [facility] in our facilities documented in this encounter Plan of Treatment Upcoming Encounters Date Type Department Care Team (Late st Contact Info) Description 08/01/2025 9:45 AM EST Office Visit [facility] MEDICINE [address] [place] [address] 08/31/2025 9:45 AM EST Office Visit [facility] MEDICINE [address] [place] [address] Name, MD Reynold [address] [place] [address] documented as of this encounter Visit Diagnoses Not on filedocumented in this encounter Additional Health Concerns Assessment Noted Time PHQ-9 Depression Total Score: 7 12/11/19 24 11:10 AM EDT documented as of this encounter Care Teams Airplane Tube Builder Relationship Specialty Start Date End Date Name, MD Reynold [address] [place] [address] PCP - General Family Medicine 12/26/15 documented as of this encounter
--- OUTSIDE RECORDS SUMMARY | 2025-07-31 11:07 | XMS_ITS | Encounter Summary ---
Author Organization [employer] Address [address] [facility] 7t [place] [address] Care Team Providers Care Production Line Mechanic Name Role Phone Name, Reynold FAUST Primary Care Provider [phone] Reason for Visit * Reason Comments Med Refill Encounter Details Date Type Department Care Team (Late st Contact Info) Description 03/13/2023 Refill [facility] MEDICINE [address] [place] [address] NameReynold MD [address] [place] [address] Chronic cough Social History Tobacco Use Types [...] Description 08/01/2025 9:45 AM EST Office Visit [facility] MEDICINE [address] [place] [address] 08/31/2025 9:45 AM EST Office Visit [facility] MEDICINE [address] [place] [address] Reynold Crowell MD [address] [place] [address] documented as of this encounter Visit Diagnoses Diagnosis Chronic cough Cough documented in this encounter Care Teams Production Line Mechanic Relationship Specialty Start Date End Date Name, MD Reynold [address] [place] [address] PCP - General Family Medicine 12/26/15 documented as of this encounter
--- OUTSIDE RECORDS SUMMARY | 2025-07-31 11:07 | XMS_ITS | Clinical Summary ---
Author Organization [employer] Address [address] [place] [address] Care Team Providers Care Rn Rehabilitation Name Role Phone Name, Reynold FAUST Primary Care Provider [phone] Allergies Active Allergy Reactions Criticality Noted Date [...] 05/09/20 25 Active traMADol (Ultram) 50 MG tabletIndicatio [...] FOR MILD TO MODERATE PAIN 60 tablet 07/21/20 25 Active ibuprofen 600 MG tablet TAKE 1 TABLET BY MOUTH EVERY 8 HOURS NEEDED FOR MILD TO MODERATE PAIN 60 tablet 05/31/20 25 025 Discontinued traMADol (Ultram) 50 MG tabletIndicatio ns:Chronic pain syndrome TAKE 1 TABLET BY MOUTH IN THE MORNING, AT NOON AND AT BEDTIME IF NEEDED FOR SEVERE PAIN 84 tablet 06/14/20 25 025 Discontinued ibuprofen 600 MG tablet TAKE 1 TABLET BY MOUTH EVERY 8 HOURS NEEDED FOR MILD TO MODERATE PAIN 60 tablet 07/04/20 25 025 Discontinued polyvinyl alcohol (Liquifilm Tears) [...] Eradication confirmed was stool antigen 04/2019 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 07/22 Overview (03/27/2025): Medication: Tramadol 50mg TID PRN Indication: OA right knee, seropositive RA Last PHOTO CARTOGRAPHER Agreement: 11/01/24 Tier: II (Q3 months - [...] cough 12/10/2023 Esophageal dysphagia 12/10/2023 Overview (12/11/2023): [place] [address] Operative Note Signed Patient: Ceec Espinosa MR#: [id number] : 1965 Acct:[id number] Age/Sex: 58 / F Loc: .[facility] Attending Dr: Kylee Mejias MD cc: [...] 12:35 PM EDT): - Continues following with [facility] - Good engagement and participation with Group Medical Visit model - Encouraged multifactorial approach to pain control including pharm and non- pharm modalities - UTOX and Pill count as expected Assessment & Plan (03/28/2025 4:30 PM EDT): - continues following with [facility] Assessment & Plan (01/31/2025 4:44 PM EDT): - continues following with [facility] Intraductal carcinoma in situ of breast [...] 12/10/2023 Left breast lump 12/10/2023 12/11/2023 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 Date Type Department Care Team Description 07/21/2025 Refill [facility] MEDICINE [address] [place] [address] Name, MD Reynold 07/14/2025 Orders Only [facility] External Provider, [facility] 07/12/2025 2:00 PM EDT Office Visit [facility] OPTOMETRY [address] [place] [address] Tarka, Xiao, OD Dry eyes, bilateral (Primary Dx); Papilloma of right lower eyelid; Dermatochalasis of both upper eyelids; Presbyopia; Elevated IOP, bilateral 07/12/2025 Travel 07/10/2025 Refill [facility] MEDICINE [address] [place], [place] [phone] NameReynold MD Chronic pain syndrome 07/05/2025 Travel 07/04/2025 Refill [facility] MEDICINE [address] [place], [place] [phone] NameReynold MD 06/15/2025 Telephone [facility] MEDICINE [address] [place], [place] [phone] Tommy Malave MA nov recalls 06/13/2025 Telephone [facility] MEDICINE [address] [place] [address] Reynold Crowell MD Durable Medical Equipment 06/13/2025 Refill [facility] MEDICINE [address] [place] [address] Reynold Crowell MD Chronic pain syndrome 05/31/2025 Refill [facility] MEDICINE [address] [place] [phone] Reynold Crowell MD 05/30/2025 9:45 AM EDT Office Visit [facility] MEDICINE [address] [place] [address] Kristen Williamson, RECREATION THERAPY AIDE Rheumatoid arthritis involving multiple sites, unspecified whether rheumatoid factor present (CMS/[facility]) (Primary Dx); Chronic pain syndrome; Dietary counseling; Exercise counseling; jail (current) use of opiate analgesic 05/30/2025 Travel 05/29/2025 Travel 05/13/2025 Refill [facility] MEDICINE [address] [place] [address] Humaira Ng NP Chronic pain syndrome 05/13/2025 Refill [facility] MEDICINE [address] [place] [address] Reynold Crowell MD 05/13/2025 Refill [facility] MEDICINE [address] [place] [address] Paula Joy NP 05/09/2025 Refill [facility] CHC MED & PEDS [address] [place], [place] [phone] Reynold Crowell MD Rash 05/02/2025 Telephone [facility] MEDICINE [address] [place] [address] Reynold Crowell MD Durable Medical Equipment from Last 3 Months Immunizations Immunization Administration [...] [facility] [address] [place] [address] 08/31/2025 9:45 AM EST Office Visit [facility] [address] [facility] [place] [address] Name, [place] [address] Health Maintenance Due Date Last Done Comments [...] 05/30/2025 10:22 AM EDT Chronic pain syndrome PROPHYLAXIS - ADULT Routine 03/30/2025 9 :00 [...] AM EDT Narrative 07/14/2025 11:43 AM EDT [address] [address] Ultrasound Report Signed Patient: Cece Espinosa MR#: [id number] : 1965 Acct:[id number] Age/Sex: 60 / F ADM Date: 07/14/25 Loc: HO.US Attending Dr: Ruperto Barrera MD Ordering Physician: Ruperto Barrera MD Date of Service: 07/14/25 Procedure(s): US pelvic and transvaginal Accession Number(s): [id number] cc: Name,Reynold FAUST; Ruperto Barrera MD Reason [...] 07/14/25 1141 DD/ 1056 TD/TT: 07/14/25 1118 [employer]: Procedure Note Donotuseinterpreter, Image - 07/14/[address] [address] Ultrasound Report Signed Patient: Cece Espinosa#: [id number] : 1965Acct:[id number] Age/Sex: 60 / FADM Date: 07/14/25 Loc: HO.US Attending Dr: Ruperto Barrera MD Ordering Physician: Ruperto Barrera MD Date of Service: 07/14/25 Procedure(s): US pelvic and transvaginal Accession Number(s): [id number] cc: Name,Reynold FAUST; Ruperto Barrera MD Reason [...] 07/14/25 1141 DD/ 1056 TD/TT: 07/14/25 1118 [employer]: [facility] External Provider IMG US PROCEDURES Final Result * OCT, Optic Nerve - OU - Both Eyes (07/12/2025 3:35 PM EDT) Narrative GarthdeeptiJeremyXiao, OD - 07/12/2025 3:35 PM EDT Good quality scans both eyes (OU) Robust RNFL 360 both eyes (OU). Robust ganglion cell layer (GCL) 360 both eyes (OU). Baseline images taken today. No signs of glaucomatous optic nerve damage. Monitor. us Xiao Cali OD OPHTH TOMOGRAPHY Final Result * CT Chest w/o Contrast (06/20/2025 10:02 PM EDT) Anatomical Region Laterality Modality Body, Chest Computed Tomogra phy 06/20/2025 10:0 2 PM EDT Narrative 06/20/2025 10:04 PM EDT [place] [address] CT Scan Report Signed Patient: Cece Espinosa MR#: [id number] : 1965 Acct:[id number] Age/Sex: 60 / F ADM Date: 06/17/25 Loc: HO.CT Attending Dr: Nelson Metz MD Ordering Physician: Nelson Metz MD Date of Service: 06/17/25 Procedure(s): CT chest wo IV con Accession Number(s): [id number] cc: Reynold Crowell MD; Nelson Metz MD Report Number: [id number]: Total DLP = 133.00 mGy-cm Reason for [...] MD Signed By: <Electronically signed by John Frode MD in OV> 06/20/252202 DD/ 01 TD/TT: 06/20/252201 [employer]: Procedure Note Donotuseinterpreter, Image - 06/20/[address] [address] [address] Scan Report Signed Patient: Cece EspinosaMR#: [id number] : 1965Acct:[id number] Age/Sex: 60 / FADM Date: 06/17/25 Loc: HO.CT Attending Dr: Nelson Metz MD Ordering Physician: Nelson Metz MD Date of Service: 06/17/25 Procedure(s): CT chest wo IV con Accession Number(s): [id number] cc: Name,Reynold FAUST; Nelson Metz MD Report Number: [id number]: Total DLP = 133.00 mGy-cm Reason for [...] in OV> 06/20/252202 DD/ 01 TD/TT: 06/20/252201 [employer]: [facility] External Provider IMG CT PROCEDURES Final Result * BI US Breast Limited Right (06/05/2025 2:32 PM EDT) Anatomical Region Laterality Modality Breast Right Ultrasound 06/05/2025 2:32 PM EDT Narrative 06/05/2025 6:07 PM EDT [address] [place] [address] Ultrasound Report Signed Patient: Cece Espinosa MR#: [id number] : 1965 Acct:[id number] Age/Sex: 60 / F ADM Date: 06/05/25 Loc: HO.MAMMO Attending Dr: Phillip Acuna MD Ordering Physician: Phillip Acuna MD Date of Service: 06/05/25 Procedure(s): US breast RT limited mamm only Accession Number(s): [id number] cc: Phillip Acuna MD; Name,Reynold FAUST Reason [...] Hutchins MD 06/05/2025 06:04 PM EDT Workstation: [employer] Dictated By: Laverne Hutchins MD Signed By: <Electronically signed by Laverne Hutchins MD in OV> 06/05/25 1804 DD/ 1432 TD/TT: 06/05/25 1452 [employer]: Procedure Note Donotuseinterpreter, Image - 06/06/2025 [facility] [address] [place] [address] Ultrasound Report Signed Patient: Cece Espinosa#: MM [id number] : 1965Acct:[id number] Age/Sex: 60 / FADM Date: 06/05/25 Loc: BRYAN Attending Dr: Phillip Acuna MD Ordering Physician: Phillip Acuna MD Date of Service: 06/05/25 Procedure(s): US breast RT limited mamm only Accession Number(s): [id number] cc: Phillip Acuna MD; Name,Reynold MD Reason for Exam: D05.11 - Intraductal carcinoma [...] 06/05/25 1804 DD/ 1432 TD/TT: 06/05/25 1452 [employer]: us [facility] External Provider IMG US PROCEDURES Final Result * BI Mammogram Diagnostic Tomosynthesis Right (06/05/2025 2:14 PM EDT) Anatomical Region Laterality Modality Breast Right Mammography 06/05/2025 2:14 PM EDT Narrative 06/05/2025 6:07 PM EDT [facility] [address] [place], [place] [address] Mammography Report Signed Patient: Cece Espinosa MR#: [id number] : 1965 Acct:[id number] Age/Sex: 60 / F ADM Date: 06/05/25 Loc: HO.MAMMO Attending Dr: Phillip Acuna MD Ordering Physician: Phillip Acuna MD Results: 2Beni gn Findings Date of Service: 06/05/25 Follow Up: 1 Year From [facility] Mammogram Procedure(s): MM tomosynthesis diagnostic RT Accession Number(s): [id number] cc: Phillip Acuna MD; Name,Reynold FAUST Reason [...] Hutchins MD 06/05/2025 06:04 PM EDT Workstation: [employer] Dictated By: Laverne Hutchins MD Signed By: <Electronically signed by Laverne Hutchins MD in OV> 06/05/25 1804 DD/ 1414 TD/TT: 06/05/25 1417 [employer]: Procedure Note Donotuseinterpreter, Image - 06/05/2025 [facility] [address] [place], [place] [address] Mammography Report Signed Patient: Cece Espinosa#: MM [id number] : 1965Acct:[id number] Age/Sex: 60 / FADM Date: 06/05/25 Loc: HO.MAMMO Attending Dr: Phillip Acuna MD Ordering Physician: Phillip Acuna MDResults: 2Beni gn Findings Date of Service: 06/05/25Follow Up: 1 Year From Orig inal Mammogram Procedure(s): MM tomosynthesis diagnostic RT Accession Number(s): [id number] cc: Phillip Acuna MD; Name,Reynold FAUST Reason [...] by Laverne Hutchins MD in OV> 06/05/25 1801 DD/ 1414 TD/TT: 06/05/25 1417 [employer]: [facility] External Provider IMG BI PROCEDURES Final [...] Unknown 05/30/2025 10:22 AM EDT Narrative Susy Cervantes, RN - 05/30/2025 10:22 AM EDT .[employer] cup Lot#[id number] Exp. 06/27/26 Internal Pass Control Kristen Williamson RECREATION THERAPY AIDE POINT OF CARE TEST ENTER/EDIT ORDERABLES Final Result * Pap Smear (11/23/2024 9:23 AM EST) Swab Cervix uteri structure / Unknown 11/23/2024 9:23 AM EST 11/24/2024 6:00 AM EST Narrative [facility] - 11/28/2024 8:33 AM EDT ----- ------- Name: Cece Espinosa Age/Sex: 59/F : 1965 Unit#: [id number] Attend Dr: KONSTANTIN DAVIS CNM Re11/23/24 Status: DEP REF Location: [facility] Disch: ----- ------- SPEC : [id number] RECD: 11/24/24 STATUS: RAUL RUSSO NUM: [id number] LEVI: 11/23/24 [facility] DR: KONSTANTIN DAVIS CNM ENTERED: 11/24/24 [...] CNM LAB CYTOLOGY ORDERABLES F inal Result [facility] [address] [place] [address] [phone] * HPV DNA, Low/High Risk (11/23/2024 12:00 AM EST) HPV High Risk Negative Negative [facility] HPV Genotype 16 Negative Negative [facility] HPV Genotype 18 Negative Negative [facility] Comment:HPV testing performe d at [facility] (CLIA#[id number]), [address] [place] [phone].Testing for HPV was performed using the Connor [...] 11/24/2024 8:5 6 AM EST Konstantin Davis [facility] LAB BLOOD ORDERABLES Megan l Result Performing Organization Address [facility] Co de Phone Number [facility] [address] [place] [phone] * (ABNORMAL) POCT HGB A1C (11/16/2024 2:28 PM EST) Hemoglobin A1C 6.2(A) 4.0 - 6.0 % QC Media Lot # [id number] Lot# Expiration Date [id number] Blood 11/16/2024 2:28 PM EST Reynold Crowell MD POINT OF CARE TEST ENTER/EDIT OR DERABLES Final Result * Hepatitis Panel, General (10/31/2024 2:04 PM EST) Hepatitis A IgM Nonreactive Nonreactive [facility] Comment:IgM antibodies to CORONADO V not detected; does not exclude earlyacute or recovered HAV infection. ~Hepatitis B Surface Antibody REACTIVE Nonreactive [facility] Comment:REACTIVE: > 11.99 mI U/mL Hepatitis B Core Antibody Nonreactive Nonreactive [facility] Hepatitis C Antibody Nonreactive Nonreactive [facility] Comment:Antibodies to HCV no t detected; does not exclude early acuteHCV infection. Hepatitis B Surface Ag Negative Negative [facility] 10/31/2024 2:04 PM EST 10/31/2024 2:04 PM EST us Generic External Data Provider LAB BLOOD ORDERAB LES Final Result [facility] [address] [place] [address] [phone] * (ABNORMAL) Lipid Panel, Standard (05/14/2024 9:34 AM EDT) Triglycerides 132 <150 mg/dL [facility] Comment:Desirable Triglyceri de: less than 150 mg/dLBorderline High Triglyceride 150-199 mg/dLHigh Triglyceride: 200-499 mg/dLVery High Triglyceride: greater than or equal to 5OO mg/dL Cholesterol 218(H) <200 mg/dL [facility] Comment:Desirable Cholestero l: less than 200 mg/dLBorderline High Cholesterol: 200-239 mg/dLHigh Cholesterol: greater than 239 mg/dL LDL Cholesterol Calculated 130(H) <100 mg/dL [facility] Comment:Desirable LDL: less than 100 mg/dLNear Optimal/Above Optimal LDL: 110- 129 mg/dLBorderline High LDL: 130-159 mg/dLHigh LDL: 160-189 mg/dLVery High LDL: greater than or equal to 190 mg/dL HDL Cholesterol 62 >40 mg/dL [facility] Comment:Desirable HDL: great er than 40 mg/dL Note: This HDL assay may give artificially low results in patients with liver disease. Blood Venous blood specimen / Unknown 05/14/2024 9:34 AM EDT 05/14/2024 9:34 AM EDT us Reynold Crowell MD LAB BLOOD ORDERABLES Final Resul t [facility] [address] [place] [address] [phone] from Last 3 Months or Most Recently Relevant to Health Maintenance Insurance [facility] [address] [facility] * Guarantor: Cece Espinosa Account Type Relation to Patient Date of Phone Billing Address Personal/Family Self [address] [place] [address] Care Teams Rn Rehabilitation Relationship Specialty Start Date End Date Name, MD Reynold [address] [place] [phone] PCP - General Family Medicine 12/26/15
--- OUTSIDE RECORDS SUMMARY | 2025-07-31 11:07 | XMS_ITS | Encounter Summary ---
Author Organization [employer] Address [address] [place] [address] Care Team Providers Care Non Food Receiving Clerk Name Role Phone Name, Reynold FAUST Primary Care Provider Reason for Visit * Reason Comments Med Refill Encounter Details Date Type Department Care Team ([facility] st Contact Info) Description 05/13/2025 Refill [facility] MEDICINE [address] [place], [place] [phone] Name, MD Reynold [address] [place] [address] Social History Tobacco Use Types Packs/Day Years [...] Description 08/01/2025 9:45 AM EST Office Visit [address] [address] 08/31/2025 9:45 AM EST Office Visit [address] [address] Name, MD Reynold [address] [place] [address] documented as of this encounter Visit Diagnoses Not on filedocumented in this encounter Additional Health Concerns Assessment Noted Time PHQ-9 Depression Total Score: 9 04/17/20 25 10:41 AM EDT documented as of this encounter Care Teams Non Food Receiving Clerk Relationship Specialty Start Date End Date NameReynold MD [address] [place] [address] PCP - General Family Medicine 12/26/15 documented as of this encounter
--- OUTSIDE RECORDS SUMMARY | 2025-07-31 11:07 | XMS_ITS | Encounter Summary ---
Author Organization [employer] Address [address] [place] [address] Care Team Providers Care Hand Edger Name Role Phone Name, Reynold FAUST Primary Care Provider [phone] Encounter Details Date Type Department Care Team (Late st Contact Info) Description 10/13/2022 Orders Only [facility] MED & PEDS [address] [place] [address] Sadia Silva LPN Social History Tobacco Use [...] Description 08/01/2025 9:45 AM EST Office Visit [facility] MEDICINE [address] [place] [phone] 08/31/2025 9:45 AM EST Office Visit [facility] MEDICINE [address] [place] [phone] Name, MD Reynold [address] [place] [address] documented as of this encounter Procedures Procedure Name Priority Date/Time Associated Diagnosis Comments CBC WITH AUTO DIFFERENTIAL Routine 11/08/2022 10:25 AM EST HEMOGLOBIN A1C Routine 11/08/2022 10:25 AM EST LIPID PANEL, STANDARD Routine 11/08/2022 10:25 AM EST COMPREHENSIVE METABOLIC PANEL Routine 11/08/2022 10:25 AM EST documented in this encounter Results * Lipid Panel, Standard (11/08/2022 10:25 AM EST) Triglycerides 142 mg/dL [facility] Comment:Desirable Triglyceri de: less than 150 mg/dLBorderline High Triglyceride 150-199 mg/dLHigh Triglyceride: 200-499 mg/dLVery High Triglyceride: greater than or equal to 5OO mg/dL Cholesterol 225 mg/dL [facility] Comment:Desirable Cholestero l: less than 200 mg/dLBorderline High Cholesterol: 200-239 mg/dLHigh Cholesterol: greater than 239 mg/dL LDL Cholesterol Calculated 131 mg/dl [facility] Comment:Desirable LDL: less than 100 mg/dLNear Optimal/Above Optimal LDL: 110- 129 mg/dLBorderline High LDL: 130-159 mg/dLHigh LDL: 160-189 mg/dLVery High LDL: greater than or equal to 190 mg/dL HDL Cholesterol 66 mg/dL [facility] Comment:Desirable HDL: great er than 40 mg/dL Note: This HDL assay may give artificially low results in patients with liver disease. 11/08/2022 10:2 5 AM EST 11/08/2022 10:25 AM EST us [facility] External Provider LAB BLO OD ORDERABLES Final Result [facility] [address] [place] [phone] [phone] * (ABNORMAL) Comprehensive Metabolic Panel (11/08/2022 10:25 AM EST) Sodium 143 135 - 145 mmol/L [facility] Potassium 4.1 3.3 - 5.1 mmol/L [facility] Chloride 106 96 - 108 mmol/L [facility] Carbon Dioxide 27 22 - 29 mmol/L [facility] Anion Gap 14 12 - 20 [facility] Urea Nitrogen (BUN) 23(H) 9 - 16 mg/dL [facility] Creatinine, Serum 0.81 0.5 - 1.4 mg/dL [facility] Estimated Glomerular Filt Rate >60 [facility] Comment:NOTE: For -Am erican individuals, multiply the result by 1.210.Chronic Kidney Disease: Estimated GFR < 60 mL/min/1.12s4Ywvoeo Kidney Disease: Estimated GFR < 15 mL/min/1.73m2 Glucose 107 60 - 115 mg/dL [facility] Calcium 9.5 8.4 - 10.2 mg/dL [facility] Bilirubin, Total 0.5 0.0 - 1.0 mg/dL [facility] Aspartate Amino Transferase 24 5 - 31 U/L [facility] Alanine Aminotransferase 27 0 - 31 U/L [facility] Total Protein 7.5 6.5 - 8.0 g/dL [facility] Albumin Level 4.2 3.5 - 5.0 g/dL [facility] Alkaline Phosphatase 79 39 - 117 U/L [facility] 11/08/2022 10:2 5 AM EST 11/08/2022 10:25 AM EST [facility] External Provider LAB BLO OD ORDERABLES Final Result [facility] [address] [place] [phone] * Hemoglobin A1c (11/08/2022 10:25 AM EST) Hemoglobin A1c 6.2 % [facility] Comment:Hemoglobin A1C Refer ence Range Adults: 4.8 - 6.0 % Non diabetic: < 6.0 % Goal: < 7.0 %Additional Action Suggested: > 8.0 %Note: Hemoglobin A1c results are invalid for patients with abnormal amounts of HbF. Blood transfusions may impact the HbA1c concentration in the patient sample. Estimated Average Glucose 131 mg/dL [facility] Comment:eAG = Estimated ave rage glucose which is %A1C expressed asaverage glucose, using the formula of the X4W-ZbfqxxsSsoeqty Glucose study (ADAG), Diabetes Care, Vol.31,#8,Apr. 2007 11/08/2022 10:2 5 AM EST 11/08/2022 10:25 AM EST us [facility] External Provider LAB BLO OD ORDERABLES Final Result [facility] [address] [place] [phone] [phone] * (ABNORMAL) CBC auto differential (11/08/2022 10:25 AM EST) White Blood Count 3.9(L) 4.8 - 10.8 X10*3/uL [facility] Red Blood Count 4.47 4.20 - 5.50 X10*6/uL [facility] Hemoglobin 12.2 12.0 - 16.0 g/dl [facility] Hematocrit 38.1 37.0 - 47.0 % [facility] Mean Corpuscular Volume 85.2 80.0 - 98.0 fL [facility] Mean Corpuscular Hemoglobin 27.3 27.0 - 33.0 pg [facility] Mean Corpuscular HGB Conc 32.0 31.0 - 35.0 g/dl [facility] Red Cell Distribution Width 14.4 11.0 - 16.0 % [facility] Platelet Count 178 160 - 400 X10*3/uL [facility] Mean Platelet Volume 11.4 9.4 - 12.3 fL [facility] Neutrophils Percent Auto 65.0 45 - 73 % [facility] Imm Gran Pct Auto 0.3 0.0 - 0.4 % [facility] Lymphocytes Percent Auto 22.4 20 - 40 % [facility] Monocytes Percent Auto 8.7 2 - 11 % [facility] Eosinophils Percent Auto 2.8 0 - 4 % [facility] Basophils Percent Auto 0.8 0 - 2 % [facility] NRBC Pct Auto 0.0 0.0 - 0.2 /100WBC [facility] Neutrophils Absolute Auto 2.6 2.0 - 8.3 x10*3/uL [facility] Imm Gran Abs Auto 0.01 0.00 - 0.03 X10*3/uL [facility] Lymphocytes Absolute Auto 0.9(L) 1.2 - 4.9 X10*3/uL [facility] Monocytes Absolute Auto 0.3 0.1 - 1.2 X10*3/uL [facility] Eosinophils Absolute Auto 0.1 0.0 - 0.4 X10*3/uL [facility] Basophils Absolute Auto 0.0 0.0 - 0.2 X10*3/uL [facility] NRBC Abs Auto 0.000 0.0 - 0.012 X10*3/uL [facility] 11/08/2022 10:2 5 AM EST 11/08/2022 10:25 AM EST us [facility] External Provider LAB BLO OD ORDERABLES Final Result Performing Organization Address City/State/[facility] Co de Phone Number [facility] [address] [place] [address] [phone] documented in this encounter Visit Diagnoses Not on filedocumented in this encounter Care Teams Hand Edger Relationship Specialty Start Date End Date Name, MD Reynold [address] [place] [phone] PCP - General Family Medicine 12/26/15 documented as of this encounter
--- OUTSIDE RECORDS SUMMARY | 2025-07-31 11:07 | XMS_ITS | Encounter Summary ---
Author Organization [employer] [facility] Address [address] [facility] 7t [place] [address] Care Team Providers Care Dental Practice Manager Name Role Phone Name, Reynold FAUST Primary Care Provider [phone] Encounter Details Date Type Department Care Team (Latest Contact Info) Description 10/10/2020 Abstract [facility] Dental, Provider, DDS Social History Tobacco [...] Description 08/01/2025 9:45 AM EST Office Visit [address] [address] 08/31/2025 9:45 AM EST Office Visit [facility] [address] [place] [address] Name, MD Reynold [address] [place] [address] documented as of this encounter Visit Diagnoses Not on filedocumented in this encounter Care Teams Dental Practice Manager Relationship Specialty Start Date End Date Reynold Crowell MD [address] [place] [address] PCP - General Family Medicine 12/26/15 documented as of this encounter
--- OUTSIDE RECORDS SUMMARY | 2025-07-31 11:07 | XMS_ITS | Encounter Summary ---
Author Organization [facility] Address [address] [facility] [address] [place] [address] Phone Care Team Providers Care Inside Sales Advertising Executive Name Role Phone Name, Reynold FAUST Primary Care Provider [phone] Encounter Details Date Type Department Care Team (Late st Contact Info) Description 2020 Ancillary Orders [facility],Outside Imaging [address], [place] [phone] System, Provider Not In, [facility] [address] [address] Social History Tobacco Use Types Packs/Day Years [...] on filedocumented in this encounter Care Teams Inside Sales Advertising Executive Relationship Specialty Start Date End Date Name, MD Reynold [address] [place] [address] [phone] PCP - General Geriatric Psychiatry 10/26/19 documented as of this encounter Additional Source Comments The information contained in this document represents components of the legal health record. It is not the complete legal health record.[facility]
--- OUTSIDE RECORDS SUMMARY | 2025-07-31 11:07 | XMS_ITS | Encounter Summary ---
Author Organization [facility] Address [address] [facility] [address] [place] [address] Phone Care Team Providers Care Drum Operator Name Role Phone Name, Reynold FAUST Primary Care Provider [phone] Encounter Details Date Type Department Care Team (Late st Contact Info) Description 10/27/2019 Ancillary Orders [facility],Outside Imaging [address] [place] [address] System, Provider Not In, [facility] [address] [address] Social History Tobacco Use Types Packs/Day Years [...] on filedocumented in this encounter Care Teams Drum Operator Relationship Specialty Start Date End Date Name, MD Reynold [address] [place] [address] PCP - General Geriatric Psychiatry 10/26/19 documented as of this encounter Additional Source Comments The information contained in this document represents components of the legal health record. It is not the complete legal health record.[facility]
--- OUTSIDE RECORDS SUMMARY | 2025-07-31 11:07 | XMS_ITS | Encounter Summary ---
Author Organization [employer] Address [address] [facility] 7t [place] [address] Care Team Providers Care Gore Maker Name Role Phone Name, Reynold FAUST Primary Care Provider [phone] Reason for Visit * Reason Comments Med Refill Encounter Details Date Type Department Care Team (Late st Contact Info) Description 03/11/2023 Refill [facility] [address] [place] [address] NameReynold MD [address] [place] [address] Chronic cough Social History Tobacco Use Types [...] Description 08/01/2025 9:45 AM EST Office Visit [facility] [address] [place] [address] 08/31/2025 9:45 AM EST Office Visit [facility] [address] [place] [address] Reynold Crowell MD [address] [place] [address] documented as of this encounter Visit Diagnoses Diagnosis Chronic cough Cough documented in this encounter Care Teams Gore Maker Relationship Specialty Start Date End Date Name, MD Reynold [address] [place] [address] PCP - General Family Medicine 12/26/15 documented as of this encounter
--- OUTSIDE RECORDS SUMMARY | 2025-07-31 11:07 | XMS_ITS | Encounter Summary ---
Author Organization [employer] Address [address] [facility] [address] 7t [place] [address] Care Team Providers Care Substation Operator Transforming Name Role Phone Name, Reynold FAUST Primary Care Provider Reason for Visit * Reason Onset Date Comments New Med Request 2024 Encounter Details Date Type Department Care Team ([facility] st Contact Info) Description 2024 Telephone [facility] [address] [place] [address] Name, MD Reynold [address] [place] [address] New Med Request Social History Tobacco Use [...] your housing situation today? I have julieth ohok 12/11/[address] you li [...] T/C to pt. For below message through [employer] interpreters id - [id number], pt. Verbally greed and understood. * Telephone [...] 08/01/2025 9:45 AM EST Office Visit [address] [address] 08/31/2025 9:45 AM EST Office Visit [address] [address] Name, MD Reynold [address] [place] [address] documented as of this encounter Visit Diagnoses Not on filedocumented in this encounter Additional Health Concerns Assessment Noted Time PHQ-9 Depression Total Score: 7 12/11/19 24 11:10 AM EDT documented as of this encounter Care Teams Substation Operator Transforming Relationship Specialty Start Date End Date Name, MD Reynold [address] [place] [address] PCP - General Family Medicine 12/26/15 documented as of this encounter
--- OUTSIDE RECORDS SUMMARY | 2025-07-31 11:07 | XMS_ITS | Encounter Summary ---
Author Organization [employer] Address [address] [facility] [address] 7t [place] [address] Care Team Providers Care Medical Laboratory Technicians Name Role Phone Name, Reynold FAUST Primary Care Provider [phone] Encounter Details Date Type Department Care Team (Late Contact Info) Description 10/07/2023 Abstract [facility] [address] [place] [address] Name, MD Reynold [address] [place] [address] Social History Tobacco Use Types Packs/Day Years [...] Description 08/01/2025 9:45 AM EST Office Visit [facility] [address] [place] [address] [phone] 08/31/2025 9:45 AM EST Office Visit [facility] [address] [place] [address] [phone] NameReynold MD [address] [place] [address] documented as of this encounter Visit Diagnoses Not on filedocumented in this encounter Care Teams Medical Laboratory Technicians Relationship Specialty Start Date End Date Name, MD Reynold [address] [place] [address] PCP - General Family Medicine 12/26/15 documented as of this encounter
--- OUTSIDE RECORDS SUMMARY | 2025-07-31 11:07 | XMS_ITS | Encounter Summary ---
Author Organization [employer] Address [address] [facility] [address] 7t [place] [address] Care Team Providers Care Can Vacuum Tester Name Role Phone Name, Reynold FAUST Primary Care Provider [phone] Reason for Visit * Reason Onset Date Comments Med Refill Reschedule THEORETICAL PHYSICIST RV she cancelled 02/02/23 06/05/20 Encounter Details Date Type Department Care Team (Late st Contact Info) Description 06/05/2023 Refill [facility] [address] [place] [address] Name, MD Reynold [address] [place] [address] Chronic pain syndrome Social History Tobacco Use [...] 06/08/2023 10:55 AM EDT Pt was cancelled THEORETICAL PHYSICIST RV on 02/02/23 and has not rescheduled. TC to pt, no answer. L/M requesting she call to reschedule her THEORETICAL PHYSICIST RV she cancelled. documented in this encounter Plan of Treatment Upcoming Encounters Date Type Department Care Team (Late st Contact Info) Description 08/01/2025 9:45 AM EST Office Visit [address] [address] 08/31/2025 9:45 AM EST Office Visit [address] [address] Name, MD Reynold [address] [place] [address] documented as of this encounter Visit Diagnoses Diagnosis Chronic pain syndrome documented in this encounter Care Teams Can Vacuum Tester Relationship Specialty Start Date End Date Name, MD Reynold [address] [place] [address] PCP - General Family Medicine 12/26/15 documented as of this encounter
--- OUTSIDE RECORDS SUMMARY | 2025-07-31 11:07 | XMS_ITS | Encounter Summary ---
Author Organization [employer] Address [address] [facility] [address] 7t [place] [address] Care Team Providers Care Php Website Developer Name Role Phone Name, Reynold FAUST Primary Care Provider [phone] Reason for Visit * Reason Comments Med Refill Encounter Details Date Type Department Care Team ([facility] st Contact Info) Description 06/11/2024 Refill [facility] [address] [place], [place] [phone] Name, MD Reynold [address] [place] [address] Essential hypertension Social History Tobacco Use Types [...] Description 08/01/2025 9:45 AM EST Office Visit [address] [address] 08/31/2025 9:45 AM EST Office Visit [address] [address] Name, MD Reynold [address] [place] [address] documented as of this encounter Visit Diagnoses Diagnosis Essential hypertension Unspecified essential hypertension documented in this encounter Additional Health Concerns Assessment Noted Time PHQ-9 Depression Total Score: 7 12/11/19 24 11:10 AM EDT documented as of this encounter Care Teams Php Website Developer Relationship Specialty Start Date End Date NameReynold MD [address] [place] [address] PCP - General Family Medicine 12/26/15 documented as of this encounter
--- OUTSIDE RECORDS SUMMARY | 2025-07-31 11:07 | XMS_ITS | Encounter Summary ---
Author Organization [employer] [facility] Address [address] [facility] 7t [place] [address] Care Team Providers Care Data Acquisition Technician Name Role Phone Name, Reynold FAUST Primary Care Provider [phone] Encounter Details Date Type Department Care Team (Late st Contact Info) Description 11/11/2022 Orders Only [address] [address] Valeria Heredia LPN Social History Tobacco Use [...] Description 08/01/2025 9:45 AM EST Office Visit [address] [address] 08/31/2025 9:45 AM EST Office Visit [address] [address] Name, MD Reynold [address] [place] [address] documented as of this encounter Procedures Procedure Name Priority Date/Time Associated Diagnosis Comments XR CHEST 2 VIEWS Routine 11/28/2022 4:19 PM EST documented in this encounter Results * XR Chest 2 Views (11/28/2022 4:19 PM EST) Anatomical Region Laterality Modality Chest Radiographic Milla ging 11/28/2022 4:19 PM EST Narrative 11/29/2022 12:42 PM EST [address] [address] XRay Report Signed Patient: Cece Espinosa MR#: [id number] : 1965 Acct:[id number] Age/Sex: 57 / F ADM Date: 11/28/22 Loc: [facility] Attending Dr: Reynold Crowell MD Ordering Physician: Reynold Crowell MD Date of Service: 11/28/22 Procedure(s): XR chest 2V Accession Number(s): [id number] cc: Reynold Crowell MD EXAMINATION: XR CHEST [...] in OV> 11/29/22 1239 DD/ 1619 TD/TT: Warping Machine Operator: DELEON Procedure Note Donotuseinterpreter, Image - 11/29/[address] [address] XRay Report Signed Patient: Cece EspinosaMR#: [id number] : 1965Acct:[id number] Age/Sex: 57 / FADM Date: 11/28/22 Loc: [facility] Attending Dr: Reynold Crowell MD Ordering Physician: Reynold Crowell MD Date of Service: 11/28/22 Procedure(s): XR chest 2V Accession Number(s): [id number] cc: NameReynold MD EXAMINATION: XR CHEST CLINICAL [...] in OV> 11/29/22 1239 DD/ 1619 TD/TT: Warping Machine Operator: DELEON [facility] External Provider IMG XR PROCEDURES Final Result documented in this encounter Visit Diagnoses Not on filedocumented in this encounter Care Teams Data Acquisition Technician Relationship Specialty Start Date End Date Name, MD Reynold [address] [place] [address] PCP - General Family Medicine 12/26/15 documented as of this encounter
--- OUTSIDE RECORDS SUMMARY | 2025-07-31 11:07 | XMS_ITS | Clinical Summary ---
Author Organization [facility] Address [address] [facility] [address] [place] [address] Phone Care Team Providers Care Md Ophthalmologist Name Role Phone Name, Reynold FAUST Primary Care Provider [phone] Allergies No known active allergies Medications cloNIDine [...] Self [address] [place] [address] [facility] ONE CARE MEDICARE REPLACEMENT * Guarantor: Cece Espinosa Account Type Relation to Patient Date of Phone Billing Address Personal/Family Self [address] [place] [address] [facility]LY [facility] CARE MEDICARE REPLACEMENT * Guarantor: Cece Espinosa Account Type Relation to Patient Date of Phone Billing Address Personal/Family Self [address] [place] [address] [facility] CARE MEDICARE REPLACEMENT * Guarantor: Cece Espinosa Account Type Relation to Patient Date of Phone Billing Address Personal/Family Self [address] [place] [address] [facility] MEDICARE REPLACEMENT * Guarantor: Cece Espinosa Account Type Relation to Patient Date of Phone Billing Address Personal/Family Self [address] [place] [address] [facility]LY [facility] CARE MEDICARE REPLACEMENT [facility] MEDICARE REPLACEMENT [facility] MEDICARE REPLACEMENT [facility] ONE CARE MEDICARE REPLACEMENT [facility] CARE MEDICARE REPLACEMENT Care Teams Md Ophthalmologist Relationship Specialty Start Date End Date Name, MD Reynold [address] [place] [address] PCP - General Geriatric Psychiatry 10/26/19 Additional Source Comments The information contained in this document represents components of the legal health record. It is not the complete legal health record.[facility]
--- OUTSIDE RECORDS SUMMARY | 2025-07-31 11:07 | XMS_ITS | Encounter Summary ---
Author Organization [employer] Address [address] [facility] 7t [place] [address] Care Team Providers Care Dealer Account Manager Name Role Phone Name, Reynold FAUST Primary Care Provider Reason for Visit * Reason Comments Med Refill Encounter Details Date Type Department Care Team (Late st Contact Info) Description 04/06/2023 Refill [facility] [address] [place] [address] NameReynold MD [address] [place] [address] Chronic cough Social History Tobacco Use Types [...] Description 08/01/2025 9:45 AM EST Office Visit [facility] [address] [place] [address] 08/31/2025 9:45 AM EST Office Visit [facility] [address] [place] [address] Reynold Crowell MD [address] [place] [address] documented as of this encounter Visit Diagnoses Diagnosis Chronic cough Cough documented in this encounter Care Teams Dealer Account Manager Relationship Specialty Start Date End Date Name, MD Reynold [address] [place] [address] PCP - General Family Medicine 12/26/15 documented as of this encounter
== END 2025-07-31 11:42 | disposition home or self-care (01) ==
LOC: HO.HGI 09:43
PROVIDERS: PCP Internal Medicine Geriatric Medicine; Visit Provider Internal Medicine Gastroenterology
DX: R10.13 Epigastric pain (principal)
CPT/HCPCS: 99214

== ENCOUNTER → 2025-07-31 09:42 | Outpatient (BNVA) | payer OTHER, SELFPAY | PROVIDERS: PCP Internal Medicine Geriatric Medicine; Visit Provider Internal Medicine Gastroenterology | DX: R10.13 Epigastric pain (principal) | CPT/HCPCS: 99212 ==

== ENCOUNTER 2025-08-11 08:07 | Day surgery (SDC) | payer OTHER, SELFPAY ==
--- OUTSIDE RECORDS SUMMARY | 2025-07-21 14:27 | XMS_ITS | Encounter Summary ---
Author Organization [facility] Address [address] [facility] [address] [place] [address] Phone Care Team Providers Care Core Microarchitect Name Role Phone Name, Reynold FAUST Primary Care Provider [phone] Encounter Details Date Type Department Care Team (Late st Contact Info) Description 12/04/2020 Ancillary Orders [facility],Outside Imaging [address] [place], [place] [phone] System, Provider Not In, [facility] [address] [address] Social History Tobacco Use Types Packs/Day Years [...] filedocumented in this encounter Care Teams Core Microarchitect Relationship Specialty Start Date End Date Name, MD Reynold [address] [place], [place] [phone] PCP - General Geriatric Psychiatry 10/26/19 documented as of this encounter Additional Source Comments The information contained in this document represents components of the legal health record. It is not the complete legal health record.[facility]
--- OUTSIDE RECORDS SUMMARY | 2025-07-21 14:27 | XMS_ITS | Encounter Summary ---
Author Organization [facility] Address [address] [facility] [address] [place] [address] Phone Care Team Providers Care Shoe Packer Name Role Phone Name, Reynold FAUST Primary Care Provider [phone] Encounter Details Date Type Department Care Team (Late st Contact Info) Description 10/27/2019 Ancillary Orders [facility],Outside Imaging [address] [place] [address] System, Provider Not In, [facility] [address] [address] Social History Tobacco Use Types Packs/Day Years [...] on filedocumented in this encounter Care Teams Shoe Packer Relationship Specialty Start Date End Date Name, MD Reynold [address] [place] [address] PCP - General Geriatric Psychiatry 10/26/19 documented as of this encounter Additional Source Comments The information contained in this document represents components of the legal health record. It is not the complete legal health record.[facility]
--- OUTSIDE RECORDS SUMMARY | 2025-07-21 14:27 | XMS_ITS | Encounter Summary ---
Author Organization [facility] Address [address] [facility] [address] [place] [address] Phone Care Team Providers Care Meter Engineer Name Role Phone Name, Reynold FAUST Primary Care Provider [phone] Encounter Details Date Type Department Care Team (Late st Contact Info) Description 12/04/2020 Ancillary Orders [facility],Outside Imaging [address] [place], [place] [phone] System, Provider Not In, [facility] [address] [address] Social History Tobacco Use Types Packs/Day Years [...] on filedocumented in this encounter Care Teams Meter Engineer Relationship Specialty Start Date End Date Name, MD Reynold [address] [place], [place] [phone] PCP - General Geriatric Psychiatry 10/26/19 documented as of this encounter Additional Source Comments The information contained in this document represents components of the legal health record. It is not the complete legal health record.[facility]
--- OUTSIDE RECORDS SUMMARY | 2025-07-21 14:27 | XMS_ITS | Encounter Summary ---
Author Organization [facility] Address [address] [facility] [address] [place] [address] Phone Care Team Providers Care Flight Reservations Manager Name Role Phone Name, Reynold FAUST Primary Care Provider [phone] Encounter Details Date Type Department Care Team (Late st Contact Info) Description 12/04/2020 Ancillary Orders [facility],Outside Imaging [address] [place], [place] [phone] System, Provider [place] In, [place] [address] Social History Tobacco Use Types Packs/Day Years [...] on filedocumented in this encounter Care Teams Flight Reservations Manager Relationship Specialty Start Date End Date Name, MD Reynold [address] [place], [place] [phone] PCP - General Geriatric Psychiatry 10/26/19 documented as of this encounter Additional Source Comments The information contained in this document represents components of the legal health record. It is not the complete legal health record.[facility]
--- OUTSIDE RECORDS SUMMARY | 2025-07-21 14:27 | XMS_ITS | Encounter Summary ---
Author Organization [facility] Address [address] [facility] [address] [place] [address] Phone Care Team Providers Care Senior Reservations Agent Name Role Phone Name, Reynold FAUST Primary Care Provider [phone] Encounter Details Date Type Department Care Team (Late st Contact Info) Description 10/27/2019 Ancillary Orders [facility],Outside Imaging [address] [place] [address] System, Provider Not In, [facility] [address] [address] Social History Tobacco Use Types Packs/Day Years [...] filedocumented in this encounter Care Teams Senior Reservations Agent Relationship Specialty Start Date End Date Name, MD Reynold [address] [place] [address] PCP - General Geriatric Psychiatry 10/26/19 documented as of this encounter Additional Source Comments The information contained in this document represents components of the legal health record. It is not the complete legal health record.[facility]
--- OUTSIDE RECORDS SUMMARY | 2025-07-21 14:27 | XMS_ITS | Encounter Summary ---
Author Organization [facility] Address [address] [facility] [address] [place] [address] Phone Care Team Providers Care Unitizer Name Role Phone Name, Reynold FAUST Primary Care Provider [phone] Encounter Details Date Type Department Care Team (Late st Contact Info) Description 12/04/2020 Ancillary Orders [facility],Outside Imaging [address] [place], [place] [phone] System, Provider Not In, [facility] [address] [address] Social History Tobacco Use Types Packs/Day Years [...] on filedocumented in this encounter Care Teams Unitizer Relationship Specialty Start Date End Date Name, MD Reynold [address] [place], [place] [phone] PCP - General Geriatric Psychiatry 10/26/19 documented as of this encounter Additional Source Comments The information contained in this document represents components of the legal health record. It is not the complete legal health record.[facility]
--- OUTSIDE RECORDS SUMMARY | 2025-07-21 14:27 | XMS_ITS | Encounter Summary ---
Author Organization [facility] Address [address] [facility] [address] [place] [address] Phone Care Team Providers Care Shirring Tender Name Role Phone Name, Reynold FAUST Primary Care Provider [phone] Encounter Details Date Type Department Care Team (Late st Contact Info) Description 10/27/2019 Ancillary Orders [facility],Outside Imaging [address] [place] [address] System, Provider Not In, [facility] [address] [address] Social History Tobacco Use Types Packs/Day Years [...] on filedocumented in this encounter Care Teams Shirring Tender Relationship Specialty Start Date End Date Name, MD Reynold [address] [place] [address] PCP - General Geriatric Psychiatry 10/26/19 documented as of this encounter Additional Source Comments The information contained in this document represents components of the legal health record. It is not the complete legal health record.[facility]
--- OUTSIDE RECORDS SUMMARY | 2025-07-21 14:27 | XMS_ITS | Encounter Summary ---
Author Organization [facility] Address [address] [facility] [address] [place] [address] Phone Care Team Providers Care Account Manager Relief Name Role Phone Name, Reynold FAUST Primary Care Provider [phone] Encounter Details Date Type Department Care Team (Late st Contact Info) Description 10/27/2019 Ancillary Orders [facility],Outside Imaging [address] [place] [address] System, Provider Not In, [facility] [address] [address] Social History Tobacco Use Types Packs/Day Years [...] on filedocumented in this encounter Care Teams Account Manager Relief Relationship Specialty Start Date End Date Name, MD Reynold [address] [place] [address] PCP - General Geriatric Psychiatry 10/26/19 documented as of this encounter Additional Source Comments The information contained in this document represents components of the legal health record. It is not the complete legal health record.[facility]
--- OUTSIDE RECORDS SUMMARY | 2025-07-21 14:27 | XMS_ITS | Encounter Summary ---
Author Organization [facility] Address [address] [facility] [address] [place] [address] Phone Care Team Providers Care Auto Specialty Services Manager Name Role Phone Name, Reynold FAUST Primary Care Provider [phone] Encounter Details Date Type Department Care Team (Late st Contact Info) Description 10/27/2019 Ancillary Orders [facility],Outside Imaging [address] [place] [address] System, Provider Not In, [facility] [address] [address] Social History Tobacco Use Types Packs/Day Years [...] on filedocumented in this encounter Care Teams Auto Specialty Services Manager Relationship Specialty Start Date End Date Name, MD Reynold [address] [place] [address] PCP - General Geriatric Psychiatry 10/26/19 documented as of this encounter Additional Source Comments The information contained in this document represents components of the legal health record. It is not the complete legal health record.[facility]
--- OUTSIDE RECORDS SUMMARY | 2025-07-21 14:27 | XMS_ITS | Encounter Summary ---
Author Organization [facility] Address [address] [facility] [address] [place] [address] Phone Care Team Providers Care Dragger Out Name Role Phone Name, Reynold FAUST Primary Care Provider [phone] Reason for Visit * Reason Comments Medication Refill Encounter Details Date Type Department Care Team (Late st Contact Info) Description 04/26/2020 Refill [facility] Rad Onc [address] [place] [address] Izabel Moran MD [address] [place] [phone] [email or web address] Medication Refill Social History [...] on filedocumented in this encounter Care Teams Dragger Out Relationship Specialty Start Date End Date Name, MD Reynold [address] [place] [address] PCP - General Geriatric Psychiatry 10/26/19 documented as of this encounter Additional Source Comments The information contained in this document represents components of the legal health record. It is not the complete legal health record.[facility]
--- OUTSIDE RECORDS SUMMARY | 2025-07-21 14:27 | XMS_ITS | Encounter Summary ---
Author Organization [facility] Address [address] [facility] [address] [place] [address] Phone Care Team Providers Care Logging Tractor Operator Swamp Name Role Phone Name, Reynold FAUST Primary Care Provider Encounter Details Date Type Department Care Team (Late st Contact Info) Description 2020 Ancillary Orders [facility],Outside Imaging 30 [place], [place] [phone] System, Provider Not In, [facility] [address] [address] Social History Tobacco Use Types Packs/Day Years [...] on filedocumented in this encounter Care Teams Logging Tractor Operator Swamp Relationship Specialty Start Date End Date Name, MD Reynold [address] [place] [address] [id number] PCP - General Geriatric Psychiatry 10/26/19 documented as of this encounter Additional Source Comments The information contained in this document represents components of the legal health record. It is not the complete legal health record.[facility]
--- OUTSIDE RECORDS SUMMARY | 2025-07-21 14:27 | XMS_ITS | Encounter Summary ---
Author Organization [facility] Address [address] [facility] [address] [place] [address] Phone Care Team Providers Care Photography Coordinator Name Role Phone Name, Reynold FAUST Primary Care Provider [phone] Encounter Details Date Type Department Care Team (Late st Contact Info) Description 12/04/2020 Ancillary Orders [facility],Outside Imaging 30 [place], [place] [phone] System, Provider Not In, [facility] [address] [address] Social History Tobacco Use Types Packs/Day Years [...] on filedocumented in this encounter Care Teams Photography Coordinator Relationship Specialty Start Date End Date Name, MD Reynold [address] [place], [place] [phone] PCP - General Geriatric Psychiatry 10/26/19 documented as of this encounter Additional Source Comments The information contained in this document represents components of the legal health record. It is not the complete legal health record.[facility]
--- OUTSIDE RECORDS SUMMARY | 2025-07-21 14:27 | XMS_ITS | Encounter Summary ---
Author Organization [facility] Address 399 [facility] [address] [place] [address] Phone Care Team Providers Care Cold Storage Superintendent Name Role Phone Name, Reynold FAUST Primary Care Provider Encounter Details Date Type Department Care Team (Late st Contact Info) Description 10/27/2019 Ancillary Orders [facility],Outside Imaging 30 [place] [address] System, Provider Not In, [facility] [address] [address] Social History Tobacco Use Types Packs/Day Years [...] on filedocumented in this encounter Care Teams Cold Storage Superintendent Relationship Specialty Start Date End Date Name, MD Reynold [address] [place] [address] PCP - General Geriatric Psychiatry 10/26/19 documented as of this encounter Additional Source Comments The information contained in this document represents components of the legal health record. It is not the complete legal health record.[facility]
--- OUTSIDE RECORDS SUMMARY | 2025-07-21 14:27 | XMS_ITS | Encounter Summary ---
Author Organization [facility] Address [address] [facility] [address] [place] [address] Phone Care Team Providers Care Boil Off Machine Operator Cloth Name Role Phone Name, Reynold FAUST Primary Care Provider [phone] Encounter Details Date Type Department Care Team (Late st Contact Info) Description 12/04/2020 Ancillary Orders [facility],Outside Imaging 30 [place], [place] [phone] System, Provider [place] In, [place] [address] Social History Tobacco Use Types Packs/Day Years [...] on filedocumented in this encounter Care Teams Boil Off Machine Operator Cloth Relationship Specialty Start Date End Date Name, MD [place]old [address] [place] [address] [id number] PCP - General Geriatric Psychiatry 10/26/19 documented as of this encounter Additional Source Comments The information contained in this document represents components of the legal health record. It is not the complete legal health record.[facility]
--- OUTSIDE RECORDS SUMMARY | 2025-07-21 14:28 | XMS_ITS | Encounter Summary ---
Author Organization [facility] Address [address] [facility] [address] [place] [address] Phone Care Team Providers Care Intensivist Name Role Phone Name, Reynold FAUST Primary Care Provider [phone] Encounter Details Date Type Department Care Team (Late st Contact Info) Description 10/27/2019 Ancillary Orders [facility],Outside Imaging 30 [place] [address] System, Provider Not In, [facility] [address] [address] Social History Tobacco Use Types Packs/Day Years [...] on filedocumented in this encounter Care Teams Intensivist Relationship Specialty Start Date End Date Name, MD Reynold 230 [place] [address] PCP - General Geriatric Psychiatry 10/26/19 documented as of this encounter Additional Source Comments The information contained in this document represents components of the legal health record. It is not the complete legal health record.[facility]
--- OUTSIDE RECORDS SUMMARY | 2025-07-21 14:28 | XMS_ITS | Encounter Summary ---
Author Organization [facility] Address [address] [facility] [address] [place] [address] Phone Care Team Providers Care Family Counselor Name Role Phone Name, Reynold FAUST Primary Care Provider [phone] Encounter Details Date Type Department Care Team (Late st Contact Info) Description 12/04/2020 Ancillary Orders [facility],Outside Imaging 30 [place] [address] System, Provider [place] In, [place] [address] Social History Tobacco Use Types Packs/Day Years [...] on filedocumented in this encounter Care Teams Family Counselor Relationship Specialty Start Date End Date Name, MD Reynold 230 [place], [place] [phone] PCP - General Geriatric Psychiatry 10/26/19 documented as of this encounter Additional Source Comments The information contained in this document represents components of the legal health record. It is not the complete legal health record.[facility]
--- OUTSIDE RECORDS SUMMARY | 2025-07-21 14:28 | XMS_ITS | Clinical Summary ---
Author Organization [facility] Address [address] [facility] [address] [place] [address] Phone Care Team Providers Care Solar Hot Water Installer Name Role Phone Name, Reynold FAUST Primary Care Provider [phone] Allergies No known active allergies Medications cloNIDine [...] Self [address] [place] [address] [facility] CARE MEDICARE REPLACEMENT * Guarantor: Cece Espinosa Account Type Relation to Patient Date of Phone Billing Address Personal/Family Self [address] [place] [address] [facility] CARE MEDICARE REPLACEMENT * Guarantor: Cece Espinosa Account Type Relation to Patient Date of Phone Billing Address Personal/Family Self [address] [place] [address] [facility] CARE MEDICARE REPLACEMENT * Guarantor: Cece Espinosa Account Type Relation to Patient Date of Phone Billing Address Personal/Family Self [address] [place] [address] [facility] MEDICARE REPLACEMENT * Guarantor: Cece Espinosa Account Type Relation to Patient Date of Phone Billing Address Personal/Family Self [address] [place] [address] [facility] CARE MEDICARE REPLACEMENT [facility] MEDICARE REPLACEMENT [facility] MEDICARE REPLACEMENT [facility] ONE CARE MEDICARE REPLACEMENT [facility] CARE MEDICARE REPLACEMENT Care Teams Solar Hot Water Installer Relationship Specialty Start Date End Date Name, MD [place] [address] [place] [address] PCP - General Geriatric Psychiatry 10/26/19 Additional Source Comments The information contained in this document represents components of the legal health record. It is not the complete legal health record.[facility]
--- NOTE | 2025-08-08 10:48 | HO.ANESPROP2 ---
Documented by User: Savana Reveles NP 08/08/25 10:54 HPI - Anesthesia Eval Consult details Narrative: 60yo F for D&C Hysteroscopy,possible myomectomy,possible polypectomy Follows [facility] pulmo - added trelegy inhaler and amox (for dymotility GI symptoms) at 06/2025 office visit breast cancer status post radiation complicated by radiation fibrosis of the lung RA: Follows [facility] rheum PMFSH Active Problems Active Problems: All Active Problems Epigastric pain determined by examination (Acute) Endocervical polyp (Acute) Fungal skin infection (Acute) Fluid in endometrial cavity (Acute) Uterine myoma (Acute) detention (current) use of immunosuppressive biologic (Acute) Diarrhea (Acute) Ductal carcinoma in situ (DCIS) of breast (Acute) Axillary adenitis (Acute) High risk medication use (Acute) ALBERT (acute kidney injury) (Acute) Pulmonary nodules (Acute) Radiation fibrosis of lung (Acute) Allergic rhinitis (Acute) Bronchitis (Acute) Chronic cough (Acute) Cutaneous fungal infection (Acute) Swelling of right hand (Acute) GERD (gastroesophageal reflux disease) (Acute) Hepatic steatosis (Acute) Rheumatoid arthritis (Acute) Left breast lump (Acute) Right knee pain (Acute) Dysphagia (Acute) H. 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 Family History Family History Mother HTN (hypertension) Father Diabetes Daughter Fibromyoma Maternal Aunt Cervical cancer Family history of problems with anesthesia: No Surgical History Surgical History History of eye surgery History of breast surgery (~11/11/19) History of esophagogastroduodenoscopy (EGD) H/O tubal ligation History of lumpectomy of both breasts (~10/03/19) History of Problems with Anesthesia: No Social History Social History Household Members: None Housing: Apartment Are you a primary child care supervisor to a significant other at home: No Do you presently have visiting nurse or other home services: Yes ([facility]) Alcohol intake: never Patient Tobacco Use Status: Former Tobacco user Have you been hit, kicked, punched, or otherwise hurt by someone within the past year? If so, by whom?: No Are you DNR?: No Advance Directives: No Advance Directives Information Provided: Yes Patient : No service: No Current occupational status: unemployed Meds Allergies Allergy/AdvReac Type Severity Reaction Status Date / Time folic acid AdvReac Unknown Rash on Verified 07/20/25 08:16 neck Home Medications ?Medication ?Instructions ?Recorded ?Confirmed ?Last Taken ?Type clonidine HCl 0.2 mg tablet 0.2 mg PO DAILY 07/31/20 08/09/25 09/05/24 History hydrocortisone 1 % topical cream 1 applic topical NEEDED 07/31/20 08/09/25 09/01/24 History lorazepam 0.5 mg tablet 1 tab PO DAILY PRN Anxiety 05/03/21 08/09/25 09/01/24 History calcium carbonate 500 mg PO BID 11/16/23 08/09/25 09/01/24 History quetiapine 50 mg tablet 50 mg PO DIRECTED 11/16/23 08/09/25 09/04/24 History blood pressure test kit-large #1 ea 05/09/24 10/07/24 Unknown History tramadol 50 mg tablet 50 mg PO TID PRN Pain (Scale Score 05/09/24 08/09/25 09/04/24 History 4-6) Exam Airway Adult Head Mouth w/Numbe Teeth:  1. Missing Assessment and Plan Assessment Anesthesia Assessment: Chart Reviewed Final Anesthetic Review Family History of Problems with Anesthesia: No History of Problems with Anesthesia: No Documented by User: José Mckenna MD 08/11/25 09:58 [facility] Past Medical History Medical History HX: breast cancer detention (current) use of immunosuppressive biologic Pulmonary nodules Radiation fibrosis of lung Bronchitis Carpal tunnel syndrome GAGANDEEP positive Allergic rhinitis Chronic low back pain Fatty liver Prediabetes Depression Hypercholesteremia Esophagitis with gastritis Osteoporosis IBS (irritable bowel syndrome) 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 Family History Family History Mother HTN (hypertension) Father Diabetes Daughter Fibromyoma Maternal Aunt Cervical cancer Surgical History Surgical History History of eye surgery History of breast surgery (~11/11/19) History of esophagogastroduodenoscopy (EGD) H/O tubal ligation History of lumpectomy of both breasts (~10/03/19) Social History Social History Household Members: None Housing: Apartment Are you a primary child care supervisor to a significant other at home: No Do you presently have visiting nurse or other home services: Yes ([facility]) Alcohol intake: never Patient Tobacco Use Status: Former Tobacco user Have you been hit, kicked, punched, or otherwise hurt by someone within the past year? If so, by whom?: No Are you DNR?: No Advance Directives: No Advance Directives Information Provided: Yes Patient : No service: No Current occupational status: unemployed Meds Allergies Allergy/AdvReac Type Severity Reaction Status Date / Time folic acid AdvReac Unknown Rash on Verified 07/20/25 08:16 neck Home Medications ?Medication ?Instructions ?Recorded ?Confirmed ?Last Taken ?Type clonidine HCl 0.2 mg tablet 0.2 mg PO DAILY 07/31/20 08/09/25 09/05/24 History hydrocortisone 1 % topical cream 1 applic topical NEEDED 07/31/20 08/09/25 09/01/24 History lorazepam 0.5 mg tablet 1 tab PO DAILY PRN Anxiety 08/08/09/25 09/01/24 History calcium carbonate 500 mg PO BID 11/16/23 08/09/25 09/01/24 History quetiapine 50 mg tablet 50 mg PO DIRECTED 11/16/23 08/09/25 09/04/24 History blood pressure test kit-large #1 ea 05/09/24 10/07/24 Unknown History tramadol 50 mg tablet 50 mg PO TID PRN Pain (Scale Score 05/09/24 08/09/25 09/04/24 History 4-6) Exam Exam Date and Time: 08/11/25 Airway Mallampati Class: II TM Dist: >3cm Neck ROM: Full Partial: Lower Adult Head Mouth w/Numbe Teeth:  1. Missing Heart: rrr Lungs: ctab vesicular Assessment and Plan Assessment Anesthesia Assessment: Anesthesia Plan Discussed Final Anesthetic Review NPO: Yes ASA Class: III Final Preanesthetic Review: No Changes in Pt Med Stat, Meds/Allgs Chart Reviewed, Consent Obtained/Reviewed and Anes Risks/Benef Reviewed Patient Risk: Low Procedure Risk: Low Anesthetic Plan Anesthetic Plan: GA and Other (pre-treat htn) Disposition: Standard PACU
[2025-08-09 11:28] VITALS: BMI 29.7
[2025-08-11] VITALS (9 sets, daily range): BP systolic 167–197; BP diastolic 74–95; PULSE 66–185; RESP 10–20; TEMP 36.1–36.9; O2SAT 90–100; BMI 29.4
[2025-08-11] MEDS: Lactated Ringers 1,000 ML 100 ML IVCONT (08:30)
--- NOTE | 2025-08-11 09:20 | MHC.SHP ---
Pre-Procedural Eval Section A - 24 Hr Update-Section A only Date of Service: 08/11/25 The patient is an INPATIENT: No Changes since office visit: No Cold of Flu in the past 2 weeks, No New Medical Problems, No Changes in Medication and No Patient answered all questions The patient has been examined within 24 hours of the surgical procedure. The History & Physical has been completed within 30 days and I have reviewed it.: Yes Section B - Complete if H&P > 30 days Chief Complaint: Polyp of cervix uteri Allergies: Allergies Allergy/AdvReac Type Severity Reaction Status Date / Time folic acid AdvReac Unknown Rash on Verified 07/20/25 08:16 neck Plan Diagnosis/Plan: Unchanged I have reviewed the history and physical and performed a pertinent physical examination on my patient. No changes have occurred unless specified. Time Spent With Patient Time: Total time managing care of this patient today ____ minutes.
--- NOTE | 2025-08-11 09:53 | PC.NURSE ---
dr rivas aware b/p better at 167/77 after med
--- NOTE | 2025-08-11 11:01 | P.BOP_ITS ---
Brief Operative Note Date of Service: 08/11/25 Pre-op diagnosis: Endocervical polyp Post-op diagnosis: same (Endocervical) Procedure: Hysteroscopy D&C, Polypectomy Surgeon: Ruperto Barrera MD Anesthesia: GLMA Was an Blender Snuff used for this Procedure?: No Estimated blood loss (mL): 0 Pathology: other (Endometrial Scrapping. Polyp) Condition: stable Disposition: PACU
--- NOTE | 2025-08-11 11:02 | W.PM.OPN ---
Operative Note Operative Note Date of Service: 08/11/25 Narrative: Preop Diagnosis: Endocervical polyp by US Operation: Diagnostic Hysteroscopy, Dilataion & Curettage and polypectomy Post Op Diagnosis: Endometrial Polyp QBL: Minimal Anesthesia: GLMA Surgeon: Ruperto Barrera MD Laser Beam Trim Operator: None Complication: None Pathology: Endometrial Scrapings, Endometrial polyp Procedure: The patient was put in the dorsal lithotomy position, scrubbed, and draped in the usual manner. A sterile speculum was inserted in the patient's vagina. The anterior lip of the cervix was grasped with a single tooth tenaculum. The cervix was dilated up to 5 mm, then the scope was inserted in the patient's uterus. Inspection revealed endocervical polyp. The Myosure Reach device was used; it was introduced through the operative channel and polypectomy done with no complications. The scope was then taken out from the uterine cavity, sharp curettings was carried on with minimal to moderate amount of tissues retrieved. At the end of the procedure, all instruments were taken out of the patient uterine and vaginal cavity. The single tooth tenaculum was removed and homeostasis was assured using pressure,. The patient tolerated the procedure well and was transferred to the PACU in a stable condition.
== END 2025-08-11 11:50 | disposition home or self-care (01) ==
PROVIDERS: PCP Internal Medicine Geriatric Medicine; Visit Provider Obstetrics & Gynecology
PROC: 0UDB8ZZ Extraction of Endometrium, Via Natural or Artificial Opening Endoscopic (ICD-10-PCS; CPT 58558; principal; 2025-08-11 10:00)
DX: N84.1 Polyp of cervix uteri (principal); D25.9 Leiomyoma of uterus, unspecified; R91.8 Other nonspecific abnormal finding of lung field; J40 Bronchitis, not specified as acute or chronic; J70.1 Chronic and other pulmonary manifestations due to radiation; Z85.3 Personal history of malignant neoplasm of breast; Z92.3 Personal history of irradiation; E78.00 Pure hypercholesterolemia, unspecified; R73.03 Prediabetes; D69.3 Immune thrombocytopenic purpura; K76.0 Fatty (change of) liver, not elsewhere classified; M81.0 Age-related osteoporosis without current pathological fracture; R76.0 Raised antibody titer; F32.A Depression, unspecified; Z79.620 Long term (current) use of immunosuppressive biologic; Z88.8 Allergy status to other drugs, medicaments and biological substances; Z98.890 Other specified postprocedural states; Z98.51 Tubal ligation status; Z87.891 Personal history of nicotine dependence; Z56.0 Unemployment, unspecified
CPT/HCPCS: 58558; 88305; J1100; J1920; J2003; J2371; J2405; J2704; J2765; J3010

== ENCOUNTER → 2025-08-11 08:07 | Outpatient (BNV) | payer OTHER, SELFPAY | PROVIDERS: PCP Internal Medicine Geriatric Medicine; Visit Provider Obstetrics & Gynecology | DX: N84.1 Polyp of cervix uteri (principal) | CPT/HCPCS: 58558 ==

== ENCOUNTER 2025-08-31 11:18 | Outpatient (AMB) | payer OTHER, SELFPAY ==
--- NOTE | 2025-08-31 11:24 | A.OFFVIS_ITS ---
Vital Signs 08/31/25 11:27 Height 4 ft 11 in Weight 146 lb BMI 29.5 BP 140/80 H Intake Visit Reasons: post op Law Researcher Required: Yes Law Researcher Language: Manager [employer] Services: Law Researcher Present (in person) Law Researcher Name: My LARA Information Interpreted: non-clinical & clinical Accompanied by: Daughter Allergies folic acid Adverse Reaction (Unknown, Verified 08/31/25 11:29) Rash on neck Post menopausal: Yes HPI Comments Details: The patient is presenting post hysteroscopy D&C endocervical polypectomy no complaints minimal vaginal bleeding no feverishness chills or abdominal pain. The pathology showed the following: A. Endocervical polyp, resection: Fragments of benign endocervical polyp with cysts, and few fragments consistent with benign endometrial polyp; no atypia or carcinoma. B. 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 Surgical History History of eye surgery History of breast surgery (~11/11/19) History of esophagogastroduodenoscopy (EGD) H/O tubal ligation History of lumpectomy of both breasts (~10/03/19) Family History Mother HTN (hypertension) Father Diabetes Daughter Fibromyoma Maternal Aunt Cervical cancer Social History Household Members: None Housing: Apartment Are you a primary laboratory animal care veterinarian to a significant other at home: No Do you presently have visiting nurse or other home services: Yes ([facility]) Alcohol intake: never Patient Tobacco Use Status: Former Tobacco user service: No Current occupational status: unemployed Female Reproductive History Menstrual Age of Menarche: 10 Review of Systems Const All systems reviewed & are unremarkable except as noted in HPI and below Reports as per HPI and Reports no additional complaints GI Reports no additional complaints Reports no additional complaints Physical Exam Vital Signs: Last Vital Signs BP 140/80 H 08/31/25 11:27 BMI result Body Mass Index 29.5 Assessment & Plan Assessment & Plan (1) Endocervical polyp: Comment: Status post hysteroscopic polypectomy D and C Code(s): N84.1 - Polyp of cervix uteri Category: Medical Plan: Discussed with the patient the results the pathology, the sensitivity, specificity, false-positive and false-negative rate were discussed with the patient. Instructions given to patient to call in case of vaginal bleeding will procedure further management/endometrial sampling to rule out e ndometrial/endocervical pathology All questions answered, the patient verbalized understanding. Coding Level of Care Code Est Pt Level 3 (90790) Diagnoses Endocervical polyp N84.1
[2025-08-31 11:27] VITALS: BP 140/80; BMI 29.5
== END 2025-08-31 11:35 | disposition home or self-care (01) ==
LOC: HO.HWS 11:18
PROVIDERS: PCP Internal Medicine Geriatric Medicine; Visit Provider Obstetrics & Gynecology
DX: N84.1 Polyp of cervix uteri (principal)
CPT/HCPCS: 99213

== ENCOUNTER → 2025-08-31 11:18 | Outpatient (BNVA) | payer OTHER, SELFPAY | PROVIDERS: PCP Internal Medicine Geriatric Medicine; Visit Provider Obstetrics & Gynecology | DX: Z48.816 Encounter for surgical aftercare following surgery on the genitourinary system (principal); N84.1 Polyp of cervix uteri; Z98.51 Tubal ligation status | CPT/HCPCS: 99212 ==